=== PATIENT | female | born 1990 | race Caucasian/White ===

== ENCOUNTER 2023-10-18 21:45 | Emergency (ER) | payer MEDICAID, SELFPAY ==
[2023-10-18 21:47] VITALS: BP 122/70; PULSE 96; RESP 15; TEMP 36.4; O2SAT 100; BMI 35.9
--- NOTE | 2023-10-18 22:01 | US_ITS ---
EXAM: US , TRANSVAGINAL CLINICAL INDICATION: pelvic pain and 1st trimester TECHNIQUE: Real-time transvaginal obstetrical ultrasound of the maternal pelvis and a first trimester with image documentation. Transvaginal imaging was used for better evaluation of the fetus and adnexa. COMPARISON: No relevant prior studies available. FINDINGS: GESTATION: Single live intrauterine . heart rate: 168 bpm. Shelby-rump length: 4.28 cm. Gestational age by ultrasound: 10 weeks 5 days, LEELA 05/10/2024. PLACENTA/AMNIOTIC FLUID: Cannot be adequately evaluated due to the early gestational age. UTERUS/CERVIX: Unremarkable. No myometrial mass. OVARIES: Right ovary: 5.1 x 3.3 x 3.1 cm. Left ovary: 3.9 x 2.3 x 2.2 cm. No mass. FREE FLUID: No free fluid. US/Transvaginal w/Preg US IMPRESSION: Single live intrauterine measuring 10 weeks 5 days with no acute abnormality identified. Electronically Signed: Yovani Tellez MD at 23:22 EDT ,
[2023-10-18 23:07] LABS: hCG Titer Quant., Serum 30534 mIU/mL (1-3)
[2023-10-18 23:31] LABS: Mucous, Urine 0 SEEN /hpf (<or=2+); White Blood Cells 0 SEEN /hpf (0-5)
[2023-10-18 23:34] LABS: Color, Urine Yellow (Yellow); Glucose, Dipstick 1000 mg/dl (Normal); Ketone-Dipstick 5 mg/dl (Negative); Leukocyte Esterase-Dipstick Negative /ul (Negative); Nitrite-Dipstick Negative (Negative); Occult Blood-Urine 10 /ul (Negative); Protein-Dipstick Negative (Negative); Specific Gravity, Urine 1.025 (1.002-1.030); Urine Bilirubin Dipstick Negative (Negative); Urine Clarity Sl. Cloudy (Clear); Urine Urobilinogen 1 mg/dl (Normal)
--- NOTE | 2023-10-18 23:42 | EDS_ITS ---
HPI HPI - Female History of Present Illness Chief Complaint: Abd Pain Informant: patient Pain Pain: Positive for Pelvic Pain Onset: Today Timing: Intermittent Quality: Positive for Cramping Current Severity: Mild Maximum Severity: Mild Bleeding Issue: Negative for Vaginal bleeding or Passing clots Associated Symptoms Associated Symptoms: Negative for Dysuria, Frequency or Urgency P: 3 Ab: 1 (Stillbirth) Narrative Narrative: 33-year-old female G5, P3 Ab1 with a having a stillbirth. Currently is 10 weeks [address] [facility]. States that she is having cramping since about 6 PM tonight. Denies any vaginal bleeding nor clots nor discharge. No dysuria or fever. She does have a history of diabetes has had a prior cholecystectomy and prior D&Cs the last 25 March of last year. She denies any recent illness. Prior similar symptoms: No Recent Illness/Hospitalization: No PFSH PFSH Medical History Diabetes mellitus, type 2 Allergy/AdvReac Type Severity Reaction Status Date / Time codeine Allergy JITTERY Verified 10/18/23 21:52 acetaminophen (From Percocet) AdvReac Vomiting Verified 10/18/23 21:52 nalbuphine (From Nubain) AdvReac Vomiting Verified 10/18/23 21:52 oxycodone (From Percocet) AdvReac Vomiting Verified 10/18/23 21:52 Social History Smoking Status: Current every day smoker tobacco type: cigarettes ROS ROS ED ROS Narrative Left lateral pelvic pain. Review of Systems ROS Unobtainable: Denies due to encephalopathy Constitutional Constitutional ED: Denies chills or fever(s) Eyes Eyes: Denies blurry vision ENT ENT ED: Denies ear pain Cardiovascular Cardiovascular: Denies chest pain Respiratory/Chest Respiratory/Chest: Denies cough Gastrointestinal Gastrointestinal: Reports abdominal pain; Denies constipation, diarrhea, melena, nausea or vomiting Genitourinary Genitourinary ED: Denies dysuria or hematuria Musculoskeletal Musculoskeletal: Denies arthralgias or myalgias Integumentary Denies abscess or Abrasions Neurologic Neurologic: Denies headache(s) Psychiatric Psychiatric: Denies anxiety or depression Endocrine Endocrinology: Denies heat intolerance Hematologic/Lymphatic Hematologic/Lymphatic: Denies easy bleeding, easy bruising or lymphadenopathy Allergic/Immunologic Allergic/Immunologic ED: Denies mouth swelling, tongue swelling or urticaria EXAM Physical Exam Narrative Exam Narrative: Well-appearing 33-year-old female. Vital signs stable afebrile. HEENT exam unremarkable. Lungs clear. Heart regular rhythm no murmur. Abdomen soft, nontender, nondistended normal bowel sounds without peritoneal signs. Moving all 4 extremities. Calves are nontender without edema. Neurologically she is awake and alert no focal motor deficits. Const Vital Signs: 10/18/23 21:47 10/18/23 23:46 Temperature 97.6 F L 98.1 F Temperature Source Temporal Oral Pulse Rate 96 84 Respiratory Rate 15 15 Blood Pressure 122/70 H 121/67 H Blood Pressure Mean 87 85 Pulse Ox 100 97 Oxygen Delivery Method Room Air Room Air Positive well nourished and well developed; Negative for cachectic, contractures or unkempt General Appearance ED: well developed and NAD; Negative for unkempt, cachectic, contractures or pallor Nutritional Appearance: Negative for cachectic HEENT Reports moist mucous membranes Negative for trauma or tenderness Eyes PERRL and EOMs intact bilaterally General Eye ED: Negative for pale conjunctiva or scleral icterus Neck no lymphadenopathy, supple and no JVD General: Negative for other Thyroid: Negative for tender Lymph Lymphatic: Negative for other Chest Wall inspection of chest normal and palpation of chest normal Chest: Negative for other Resp normal respiratory effort and clear to auscultation bilaterally Effort and Inspection: Negative for pain with movement Auscultation: Negative for rales, rhonchi, wheezes or diminished lung sounds Cardio regular rate, regular rhythm, S1 normal heart sound, no murmurs and no JVD Rate: Negative for bradycardia or tachycardic Rhythm: Negative for abnormal rhythm GI normal to inspection, nondistended, normoactive bowel sounds, soft to palpation, non-tender, non-distended and no masses Auscultation: normoactive bowel sounds Palpation: Negative for tender, guarding, rigid or mass Back/Spine no CVA tenderness General Back: Negative for CVA tenderness Cervical Spine: Negative for cervical spine tenderness Thoracic Spine / Upper Back: Negative for thoracic spinal tenderness Lumbar Spine / Lower Back: Negative for lumbar spinal tenderness Extremity normal to inspection and full ROM General Extremety ED: Negative for edema or tenderness General Extremity: Negative for edema Neuro oriented x3 and CN's II-XII intact bilaterally Sensorium / Orientation: alert, oriented to person, oriented to place and oriented to time; Negative for confused, lethargic or stuporous Motor Exam: strength 5/5 throughout Psych mental status grossly normal Appearance: Negative for unkempt Attitude: No agitated Speech: No other Mood & Affect: Negative for depressed, anxious or tearful Skin no rashes or lesions noted and no wounds General Skin Exam: Negative for jaundice or pallor Rashes: No rashes noted Trauma: Negative for other MDM MDM MDM Narrative Medical decision making narrative: Well-appearing 33-year-old female who has left lower lateral pelvic pain. She is reportedly about 10+ weeks . Ultrasound labs are being obtained. She is having no bleeding or dysuria. Currently she does not need any for pain. Repeat exam patient doing well at 12:13 AM. She was given Tylenol for pain. She be discharged home outpatient follow-up. There is no signs of ectopic. She is having no bleeding. There is no signs of infection. I did repeat exam on her left lower quadrant I do not see any hernia or mass or any acute abnormality. Outpatient follow-up with her [facility]. Tylenol for pain. History & Record Review Discussion w/independent historian: Patient and Family Lab Data Attestation: I reviewed the patient's lab results. Lab results narrative: Quantitative hCG is 30,534 Blood type is O+. UA shows no signs of infection. No nitrites. No white or red cells. Only rare bacteria. Ultrasound shows a single live IUP at 10 weeks and 5 days as read by the rad iologist. No abnormality seen. Labs: Laboratory Results - last 24 hr 10/18/23 10/18/23 22:20 23:27 HCG, Quant [id number] H Urine Color Yellow Urine Clarity Sl. Cloudy Urine pH 6.0 Ur Specific [place] 1.025 Urine Protein Negative Urine Glucose (UA) 1000 H Urine Ketones 5 H Urine Occult Blood 10 H Urine Nitrite Negative Urine Bilirubin Negative Urine Urobilinogen 1 H Ur Leukocyte Esterase Negative Urine RBC 0-5 SEEN Urine WBC 0 SEEN Ur Squamous Epith Cells 0-5 SEEN Urine Bacteria RARE Urine Mucus 0 SEEN Blood Type O POSITIVE Radiography Diagnostic Testing: Clinical Impression(s) from Imaging Studies Obstetrics Ultrasound 10/18/23 22:01 IMPRESSION: Single live intrauterine measuring 10 weeks 5 days with no acute abnormality identified. Electronically Signed: Yovani Tellez MD at 23:22 EDT , Discharge Plan Triage Chief Complaint: Abd Pain ED Provider: Noah Rene Dx/Rx/DC Orders Clinical Impression: Pelvic pain, First trimester , History of diabetes mellitus Instructions: First Trimester, ED Pelvic Pain, Unknown Cause Primary Care Provider: Mera Aranda Referrals: Mera Aranda MD [Primary Care Provider] - Mimi Harden MD [Med Staff - Active Staff] - As Needed Activity Restrictions/Additional Instructions: Your labs look good. Your blood type so positive. Your urine is not infected. The ultrasound showed a intrauterine normal-appearing without abnormalities. I do not have a specific cause for your pain. It may be from the uterus expanding with the . There is no signs of a hernia right now. No signs of infection. No signs of a miscarriage. Tylenol for pain. Follow-up with your [facility]. Return if feeling a lot worse or develop a fever or having worsening pain. Print Language: Yi Disposition Disposition: Home, Self Care
[2023-10-18 23:46] VITALS: BP 121/67; PULSE 84; RESP 15; TEMP 36.7; O2SAT 97
[2023-10-18 23:48] LABS: Bacteria RARE /hpf (None Seen); Red Blood Cells-Urine 0-5 SEEN /hpf (0-5); Squamous Epithelial Cells - UA 0-5 SEEN /hpf (5-10)
[2023-10-19] MEDS: Acetaminophen 500 MG Tablet 1000 MG PO
[2023-10-19 00:27] VITALS: BP 120/62; PULSE 78; RESP 16; TEMP 36.6; O2SAT 98
== END 2023-10-19 00:29 | disposition home or self-care (01) ==
PROVIDERS: Emergency Provider Emergency Medicine; PCP Internal Medicine; Visit Provider Emergency Medicine
DX: O26.891 Other specified pregnancy related conditions, first trimester (principal); R10.2 Pelvic and perineal pain; O09.521 Supervision of elderly multigravida, first trimester; O99.331 Smoking (tobacco) complicating pregnancy, first trimester; F17.210 Nicotine dependence, cigarettes, uncomplicated; Z3A.10 10 weeks gestation of pregnancy
CPT/HCPCS: 76817; 81001; 84702; 86900; 86901; 99283; A4216

== ENCOUNTER 2023-12-09 20:38 | Emergency (ER) | payer MEDICAID, SELFPAY ==
[2023-12-09 20:39] VITALS: BP 134/77; PULSE 116; RESP 18; TEMP 36.6; O2SAT 97; BMI 35.9
--- NOTE | 2023-12-09 21:18 | US_ITS ---
EXAM: US , LIMITED CLINICAL INDICATION: vaginal bleeding TECHNIQUE: Real-time limited ultrasound of the maternal uterus with image documentation. COMPARISON: No relevant prior studies available. FINDINGS: FETUS: There is an intrauterine gestation. GESTATIONAL AGE: Gestational age 18 weeks 1 day. LEELA: LEELA 05/10/2024. EFW: Estimated weight 259 g. BPD: Biparietal diameter 4.3 cm age 18 weeks 6 days, 82nd percentile. HC: Head circumference 16.4 cm age 19 weeks 1 day, 85th percentile. AC: Abdominal circumference 14 cm age 19 weeks 3 days, 84th percentile. Femur length 2.7 cm age 18 weeks 0 days, 41st percentile. POSITION: The fetus is in breech position. HEART RATE: heart rate is 150 bpm. CERVIX: The cervix measures 3.7 cm. FREE FLUID: Largest fluid pocket measures 3.8 x 5.7 cm. US/OB Limited With Biometrics IMPRESSION: Intrauterine gestation with an average ultrasound age of 19 weeks 0 days and percent estimated due date of 05/04/2024 or. heart rate is 150 bpm. Electronically Signed: Grant Colunga MD at 22:37 EDT ,
--- NOTE | 2023-12-09 21:56 | EDS_ITS ---
HPI HPI - Female History of Present Illness Chief Complaint: Vag Bld, Preg Narrative Narrative: 33-year-old female G5, currently 18 weeks gestation presenting with abdominal cramping. She states that today when she would not to the restroom she wiped and saw pinkish blood. She is concerned because she had a miscarriage at 16 weeks during her last she states that her pain feels like menstrual cramps. No nausea or vomiting. No fevers or chills. PFSH PFSH Medical History Diabetes mellitus, type 2 Home Medications ?Medication ?Instructions ?Recorded ?Last Taken ?Type cephalexin 500 mg capsule 500 mg PO Q12 #10 CAPSULES 12/09/23 Unknown Rx Allergy/AdvReac Type Severity Reaction Status Date / Time codeine Allergy JITTERY Verified 10/18/23 21:52 acetaminophen (From Percocet) AdvReac Vomiting Verified 10/18/23 21:52 nalbuphine (From Nubain) AdvReac Vomiting Verified 10/18/23 21:52 oxycodone (From Percocet) AdvReac Vomiting Verified 10/18/23 21:52 Family History no significant family his Social History Smoking Status: Current every day smoker tobacco type: cigarettes ROS ROS ED Constitutional Constitutional ED: Denies chills, fever(s) or sweats Eyes Eyes: Denies blurry vision or change in vision ENT ENT ED: Denies ear pain or sore throat Cardiovascular Cardiovascular: Denies chest pain, palpitations or racing heartbeat Respiratory/Chest Respiratory/Chest: Denies cough, dyspnea or sputum Gastrointestinal Gastrointestinal: Reports abdominal pain; Denies constipation, diarrhea, nausea or vomiting Genitourinary Genitourinary ED: Denies dysuria, hematuria or urinary frequency Musculoskeletal Musculoskeletal: Denies arthralgias, myalgias or neck pain Integumentary Denies abscess, Abrasions or rash Neurologic Neurologic: Denies headache(s), paresthesias or weakness Psychiatric Psychiatric: Denies anxiety, depression, suicidal ideation or suicidal thoughts Endocrine Endocrinology: Denies polydipsia or polyuria EXAM Physical Exam Const Vital Signs: 12/09/23 20:39 Temperature 98 F Temperature Source Temporal Pulse Rate 116 H Respiratory Rate 18 Blood Pressure 134/77 H Blood Pressure Mean 96 Pulse Ox 97 Oxygen Delivery Method Room Air Positive well nourished General Appearance ED: NAD HEENT Reports TM's clear Tympanic Membrane ED: Yes TM's clear Eyes PERRL and EOMs intact bilaterally Resp normal respiratory effort Cardio regular rate and regular rhythm GI soft to palpation Palpation: Negative for guarding or rigid Back/Spine no CVA tenderness Neuro oriented x3 and CN's II-XII intact bilaterally Sensorium / Orientation: alert Motor Exam: strength 5/5 throughout Psych mental status grossly normal MDM MDM MDM Narrative Medical decision making narrative: Patient presenting at 18 weeks gestation of concern that she had bloody discharge. Her blood type is O+. Urinalysis will be obtained. Sensitive ultrasound obtained shows good heart tones of 150 and estimated size of 19 weeks. Patient's urinalysis does have some bacteria so I will treat it with Keflex. Sent for culture. Impression: 1. UTI 2. Threatened miscarriage Lab Data Attestation: I reviewed the patient's lab results. Labs: Laboratory Results - last 24 hr 12/09/23 21:30 Urine Color Yellow Urine Clarity Sl. Cloudy Urine pH 5.0 Ur Specific [place] 1.030 Urine Protein 30 H Urine Glucose (UA) 100 H Urine Ketones 50 H Urine Occult Blood 50 H Urine Nitrite Negative Urine Bilirubin Negative Urine Urobilinogen Normal Ur Leukocyte Esterase 500 H Urine RBC 0-5 SEEN Urine WBC 25-50 SEEN Ur Squamous Epith Cells 0-5 SEEN Calcium Oxalate Crystal RARE Urine Bacteria 1+ Urine Mucus RARE Radiography Diagnostic Testing: Clinical Impression(s) from Imaging Studies Obstetrics Ultrasound 12/09/23 21:18 IMPRESSION: Intrauterine gestation with an average ultrasound age of 19 weeks 0 days and percent estimated due date of 05/04/2024 or. heart rate is 150 bpm. Electronically Signed: Grant Colunga MD at 22:37 EDT , Discharge Plan Triage Chief Complaint: Vag Bld, Preg ED Provider: Domenico Rush Dx/Rx/DC Orders Instructions: Miscarriage Threatened , ED Cystitis Female Adult Prescriptions: New cephalexin 500 mg capsule 500 mg PO Q12 Qty: 10 0RF Primary Care Provider: Mera Aranda Referrals: Mera Aranda MD [Primary Care Provider] - Print Language: Yakut Disposition Disposition: Home, Self Care
[2023-12-09 21:57] LABS: Color, Urine Yellow (Yellow); Glucose, Dipstick 100 mg/dl (Normal); Ketone-Dipstick 50 mg/dl (Negative); Leukocyte Esterase-Dipstick 500 /ul (Negative); Nitrite-Dipstick Negative (Negative); Occult Blood-Urine 50 /ul (Negative); Protein-Dipstick 30 mg/dl (Negative); Urine Bilirubin Dipstick Negative (Negative); Urine Clarity Sl. Cloudy (Clear); Urine Urobilinogen Normal (Normal)
[2023-12-09 22:03] LABS: Calcium Oxalate Crystals Ur RARE /hpf (<or=2+); Red Blood Cells-Urine 0-5 SEEN /hpf (0-5); Squamous Epithelial Cells - UA 0-5 SEEN /hpf (5-10); White Blood Cells 25-50 SEEN /hpf (0-5)
[2023-12-09 22:04] LABS: Bacteria 1+ /hpf (None Seen); Mucous, Urine RARE /hpf (<or=2+)
[2023-12-09] MEDS: Cephalexin 250 MG Capsule 500 MG PO (22:55)
== END 2023-12-09 22:59 | disposition home or self-care (01) ==
PROVIDERS: Emergency Provider Student in an Organized Health Care Education/Training Program; PCP Internal Medicine; Visit Provider Student in an Organized Health Care Education/Training Program
DX: O20.0 Threatened abortion (principal); O23.42 Unspecified infection of urinary tract in pregnancy, second trimester; O99.332 Smoking (tobacco) complicating pregnancy, second trimester; F17.210 Nicotine dependence, cigarettes, uncomplicated; O09.522 Supervision of elderly multigravida, second trimester; Z3A.18 18 weeks gestation of pregnancy
CPT/HCPCS: 76816; 81001; 87086; 87088; 99282

== ENCOUNTER 2025-03-27 09:11 | Emergency (ER) | payer MEDICAID, SELFPAY ==
[2025-03-27 09:12] VITALS: BP 116/77; PULSE 105; RESP 16; TEMP 36.8; O2SAT 98; BMI 33.1
--- NOTE | 2025-03-27 09:27 | EX.ED.VIS.EY ---
HPI History of Present Illness Chief Complaint: Eye Problem Narrative Narrative: Patient is a 35-year-old female presenting to the emergency department for swelling underneath her right eye. Patient states it has been like this since Thursday. She denies any purulent or watery drainage from the eye. Denies any redness surrounding the eye or of the eye itself. Denies any visual changes including double vision or blurry vision. She denies any pain in her eye. Denies headache. Denies any viral-like symptoms. Denies any fever or chills. Feels well otherwise. She does not wear contacts. [facility] Medical History Diabetes mellitus, type 2 Home Medications ?Medication ?Instructions ?Recorded ?Last Taken ?Type cephalexin 500 mg capsule 500 mg PO Q12 #10 CAPSULES 12/09/23 Unknown Rx Allergy/AdvReac Type Severity Reaction Status Date / Time codeine Allergy JITTERY Verified 03/27/25 09:12 acetaminophen (From Percocet) AdvReac Vomiting Verified 03/27/25 09:12 nalbuphine (From Nubain) AdvReac Vomiting Verified 03/27/25 09:12 oxycodone (From Percocet) AdvReac Vomiting Verified 03/27/25 09:12 Social History Smoking Status: Current every day smoker tobacco type: cigarettes ROS ROS ED ROS Narrative See HPI EXAM Physical Exam Narrative Exam Narrative: Vital signs: Reviewed General: Alert and oriented x 3. No acute distress HEENT: Head is normocephalic and atraumatic. Midface is nontender. Pupils equal round and reactive. There is no conjunctival injection. No pain with extraocular movements. No drainage noted from the eye. No crusting noted around the eyelid. There is very mild swelling only to the right lower eyelid. There is no erythema, warmth, fluctuance periorbitally. no drainage expressed on palpation of the nasolacrimal duct. No stye or chalazion seen along the lid margin. No proptosis. The nares are patent. Oropharynx and throat exams normal. Neck: Supple without lymphadenopathy nontender Cardiovascular: Regular rate and rhythm, no murmurs. No rubs or gallops. Normal S1 and S2 Respiratory: Clear to auscultation bilaterally. No wheezes, rales, rhonchi Abdominal: Soft and nontender. Normal bowel sounds. No guarding or rebound. Nonsurgical abdomen Extremities: No tenderness. No bruising. Normal range of motion. Normal sensation. Skin: No rash or redness. Neurological: Cranial nerves II through XII are grossly intact. Normal strength and sensation. Normal cerebellar function The rest of the physical exam is unremarkable Const Vital Signs: 03/27/25 09:12 Temperature 98.2 F Temperature Source Oral Pulse Rate 105 H Respiratory Rate 16 Blood Pressure 116/77 Blood Pressure Mean 90 Pulse Ox 98 Oxygen Delivery Method Room Air MDM MDM MDM Narrative Medical decision making narrative: Patient is a 35-year-old female presenting to the emergency department for mild swelling under her right eye. Patient was seen and examined. Vitals are stable. Patient resting in bed comfortably no acute distress. There is no stye or chalazion seen on exam. There is no discharge seen to be concerned about a bacterial conjunctivitis. There is no conjunctival injection of the eye. She has no visual changes or eye pain to be concerned about a acute closure angle glaucoma, iritis, keratitis or foreign body. Please see nursing note for visual acuity. Patient has no pain with extraocular movements and has no surrounding periorbital erythema to be concerned about a periorbital cellulitis or postseptal cellulitis. With a very mild swelling located only under the right eye with no surrounding skin changes I recommended antihistamines to the patient. Patient was given a dose of Claritin here. I recommended that she watch for any redness, worsening swelling, visual changes or drainage from the eye that would warrant return to the emergency department and possible antibiotics. Patient is agreeable with the plan. Patient discharged from the Emergency Department. I do not feel that the patient's evaluation reveals any acute reason for admission at this time. I instructed them to either follow-up with their primary care physician or promptly return to the Emergency Department for reevaluation should symptoms worsen or new symptoms develop. I explained what symptoms would indicate the need to return to the emergency department. Shared decision making was used. The patient voiced understanding of the treatment plan and is agreeable with it. Clinical impression Swelling of right lower eyelid History & Record Review Discussion w/independent historian: Patient Discharge Plan Triage Chief Complaint: Eye Problem ED Provider: Ida Baltazar Dx/Rx/DC Orders Clinical Impression: Swelling of right lower eyelid Prescriptions: No Action cephalexin 500 mg capsule 500 mg PO Q12 Qty: 10 0RF Primary Care Provider: Mera Aranda Referrals: Mera Aranda MD [Primary Care Provider, Internal Medicine] - As soon as possible Activity Restrictions/Additional Instructions: You can take Claritin during the day or Benadryl at night over the next few days to help with the swelling. You need to return if you have any redness of the eye, drainage from the eye, worsening swelling or any redness associated with the swelling around your eye. Your evaluation in the Emergency Department did not reveal any acute reason for admission. However, I want to emphasize that you may be early in the course of a disease process or illness even if it is not present. For this reason you should follow-up within 24 hours for reevaluation with either your primary care physician or if necessary back here in the Emergency Department. You should return to the Emergency Department immediately if your symptoms worsen or new symptoms develop. Print Language: Georgian Disposition Disposition: Home, Self Care
[2025-03-27 10:16] VITALS: BP 134/67; PULSE 78; RESP 17; TEMP 36.7; O2SAT 100
== END 2025-03-27 10:17 | disposition home or self-care (01) ==
PROVIDERS: Emergency Provider Student in an Organized Health Care Education/Training Program; PCP Internal Medicine; Visit Provider Student in an Organized Health Care Education/Training Program
DX: H02.89 Other specified disorders of eyelid (principal); E11.9 Type 2 diabetes mellitus without complications; F17.210 Nicotine dependence, cigarettes, uncomplicated
CPT/HCPCS: 99282

== ENCOUNTER 2025-04-10 19:28 | Emergency (ER) | payer MEDICAID, SELFPAY ==
[2025-04-10 19:30] VITALS: BP 145/91; PULSE 91; RESP 18; TEMP 36.4; O2SAT 98; BMI 35.6
--- OUTSIDE RECORDS SUMMARY | 2025-04-10 20:03 | XMS RPT_ITS | CCD ---
Author Organization [facility] Care Team Providers Care 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 Name Role Phone [facility], Keti Unavailable [facility], Vasu Unavailable Junior Jeong MD Primary Care Provider [facility], Vasu Unavailable Junior Jeong MD Primary Care Provider Junior Jeong MD Primary Care Provider [facility], Vasu Unavailable DAYAN JENKINS Attending Unavailable Junior Jeong MD Primary Care Provider MAGED BATISTA Attending Unavailable MAGED BATISTA Admitting Unavailable JUNIOR JEONG Primary Care Unavailable JUNIOR JEONG Primary Care Unavailable CYNTHIA MANRIQUEZ Referring Unavailable CONI CORONADO Admitting Unavailable DAPHNEY DESOUZA Attending Unavailable JUNIOR JEONG Primary Care Unavailable SUNDEEP NEAL DO Attending Unavailable SUNDEEP NEAL DO Primary Care Unavailable SUNDEEP NEAL DO Admitting Unavailable Unavailable Primary Care Provider UnavailRAJIV Oscar Attending Unavailable CHACHA MIRANDA Admitting Unavailable GALLO JONES Consulting Unavailable EMANI ENCINAS Attending Unavailable LEONOR ROYAL Consulting Unavailable CARO ARZOLA Consulting Unavailable JYOTI WISEMAN Consulting Unavailable Perez 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, Fercho Unavailable Maira MOVIE PROJECTIONIST.TIE UP WORKER, Leah Unavailable Amira MOVIE PROJECTIONIST.TIE UP WORKER, Leah Unavailable Maira MOVIE PROJECTIONIST.TIE UP WORKER, Leah Unavailable Perez 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, Fercho Unavailable Perez 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, Fercho Unavailable SHONNA COVARRUBIAS Primary Care Unavailable JUNIOR HORTON Attending Unavailable JUNIOR HORTON Attending Unavailable TALAMPAS, JUNIOR D Primary Care Unavailable OMLEY, MIN DO Attending Unavailable OMLEY, MIN DO Primary Care Unavailable MIN FARAH DO Admitting Unavailable JUNIOR JEONG MD Referring Unavailable TALAMPJUNIOR BROWN MD Consulting Unavailable PROVIDER, UNKNOWN Consulting Unavailable OMLEY, MIN DO Primary Care Unavailable OMLEY, MIN DO Admitting Unavailable TALAMPJUNIOR BROWN MD Referring Unavailable TALAMPASJUNIOR MD Consulting Unavailable OMLEY, MIN DO Attending Unavailable PROVIDER, UNKNOWN Consulting Unavailable Talampas, Junior D Primary Care Unavailable Ida Baltazar Attending Unavailable PEREZ, FERCHO Attending Unavailable TALAMPAS, JUNIOR Primary Care Unavailable TALAMPAS, JUNIOR Primary Care Unavailable PEREZ, FERCHO Referring Unavailable TALAMPAS, JUNIOR Primary Care Unavailable ADEEL RAMIREZ Referring Unavailable PEREZ, FERCHO Referring Unavailable TALAMPAS, JUNIOR Primary Care Unavailable TALAMPAS, JUNIOR Attending Unavailable TALAMPAS, JUNIOR Primary Care Unavailable ADEEL RAMIREZ Attending Unavailable TALAMPAS, JUNIOR Primary Care Unavailable ADEEL RAMIREZ Attending Unavailable PEREZ, FERCHO Attending Unavailable TALAMPAS, JUNIOR Primary Care Unavailable LIZETTE PIERCE Attending Unavailable TALAMPAS, JUNIOR Primary Care Unavailable ADEEL RAMIREZ Referring Unavailable Allergies Allergy Classification Reported Allergen(s) Allergy Type Date of Onset Reaction(s) Facility Acetaminophen / oxyCODONE (3 sources) Acetaminophen / oxyCODONE; Translations: [OXYCODONE-ACETAM INOPHEN] Drug Allergy 1 Vomiting [facility] Repository empagliflozin (3 sources) empagliflozin; Translations: [EMPAGLIFLOZIN] Drug Allergy 2 Intolerance [facility] Repository metFORMIN (3 sources) metFORMIN; Translations: [METFORMIN] Drug Allergy 3 Diarrhea, GI Upset [facility] Repository Nalbuphine (3 sources) Nalbuphine; Translations: [NALBUPHINE] Drug Allergy 1 Vomiting [facility] Repository Opioid Agonists (6 sources) Codeine; Translations: [CODEINE] Drug Allergy 9 Other: See Comments, Vomiting [facility] Repository (20 sources) Acetaminophen / oxyCODONE; Translations: [OXYCODONE-ACETAM INOPHEN] Drug Allergy 6 Vomiting, Nausea Only [facility] Work Phone: (20 sources) Codeine; Translations: [CODEINE] Drug Allergy 6 Other: See Comments [facility] Work Phone: (20 sources) Nalbuphine; Translations: [NALBUPHINE] Drug Allergy 6 Vomiting, Nausea Only [facility] Work Phone: (20 sources) empagliflozin; Translations: [EMPAGLIFLOZIN] Drug Allergy 2 Intolerance [facility] Work Phone: (20 sources) metFORMIN; Translations: [METFORMIN] Drug Allergy 3 Diarrhea, GI Upset [facility] Work Phone: (20 sources) oxyCODONE; Translations: [OXYCODONE] Drug Allergy 9 Vomiting [facility] Work Phone: (2 sources) Acetaminophen / oxyCODONE Drug Allergy [facility] Repository (2 sources) Codeine Drug Allergy [facility] Repository (2 sources) Nalbuphine Drug Allergy [facility] Repository (1 source) Acetaminophen Drug Allergy 5 [facility] Repository (1 source) Codeine Drug Allergy 5 [facility] Repository (1 source) Nalbuphine Drug Allergy 5 [facility] Repository (1 source) oxyCODONE Drug Allergy 5 [facility] Repository Medications Current Medications Medication Drug Class(es) Dates Sig (Normalized) Sig (Original) acetaminophen 325 mg oral tablet (12 sources) Start: 02-22-2024 End: 03-03-2024 take 2 tablets by mouth every six hours as needed for pain acetaminophen (Tylenol) 325 MG tablet Take 2 tablets (650 mg) by mouth every 6 hours as needed for mild pain (1-3) for up to 10 days. 30 tablet 02/22/2024 03/03/2024 Active Start: 02-20-2024 End: 02-22-2024 take 1 tablet by mouth every six hours as needed 650 mg, Oral, Every 6 hours PRN, other, Pain (1-10), Starting on 02/20/24 at 0504, , Give in addition to any other pain medication ordered at same time for any pain indication. Maximum dose of acetaminophen is 4000mg from all sources in 24 hours. Alternate ibuprofen and acetaminophen every 3 hours. Start: 02-18-2024 End: 02-18-2024 1,000 mg, Oral, Once, On Angela 02/18/24 at 1915, For 1 dose, Maximum dose of acetaminophen is 4000 mg from all sources in 24 hours. Start: 02-18-2024 End: 02-18-2024 1,000 mg, Oral, Once, On Angela 02/18/24 at 1915, For 1 dose, Maximum dose of acetaminophen is 4000 mg from all sources in 24 hours. Start: 02-17-2024 End: 02-17-2024 1,000 mg, Oral, Once, On 02/17/24 at 0000, For 1 dose, Maximum dose of acetaminophen is 4000 mg from all sources in 24 hours. Start: 02-15-2024 End: 02-15-2024 1,000 mg, Oral, Once, On 02/15/24 at 2245, For 1 dose, Maximum dose of acetaminophen is 4000 mg from all sources in 24 hours. [id number] 200 actuat albuterol 0.09 mg/actuat metered dose inhaler (20 sources) beta2-Adrenergic Agonist Start: 04-27-2023 End: 08-05-2024 take 2 puff(s) by inhalation every four hours as needed for wheezing albuterol HFA (PROVENTIL HFA, VENTOLIN HFA) 90 mcg/actuation inhaler Inhale 2 Puffs as instructed every 4 hours as needed for wheezing/shortness of breath. 1 Each 2 08/05/2024 Active albuterol HFA (P ROVENTIL HFA, VENTOLIN HFA) 90 mcg/actuation inhaler Inhale 2 Puffs as instructed. 0 Active Comment on above: Inhale 2 Puffs as in structed. Inhale 2 Puffs as in structed every 4 hours as needed for wheezing/shortness of breath. amoxicillin 875 mg oral tablet (1 source) Penicillin-class Antibacterial Start: End: 3 take 1 tablet by mouth twice daily amoxicillin (AMOXIL) 875 mg tablet Take 1 tablet by mouth twice daily for 5 days. 10 tablet 0 11/21/2022 11/26/2022 Active Comment on above: Take 1 tablet by isabella twice daily for 5 days. Blood-Glucose Meter (BLOOD GLUCOSE MONITORING) monitoring kit (20 sources) Start: Blood-Glucose Meter (BLOOD GLUCOSE MONITORING) monitoring kit One touch. Use as instructed. Please use voucher Bin [id number]; [facility]N [facility]; Group [id number]; ID NOCHARGEMETR 1 Kit 04/06/2023 Active Start: 04-06-2023 Blood-Glucose Meter (BLOOD GLUCOSE MONITORING) monitoring kit One touch. Use as instructed. Please use voucher Bin [id number]; [facility]; Group [id number]; ID NOCHARGEMETR 1 Kit 0 04/06/2023 Active Comment on above: One touch. Use as in structed. Please use voucher Bin [id number]; [facility]; Group [id number]; ID NOCHARGEMETR Blood-Glucose Meter,Continuous (DEXCOM G7 HOME THEATRE TECHNICIAN) misc (20 sources) Start: 08-05-2022 Blood-Glucose Meter,Continuous (DEXCOM G7 HOME THEATRE TECHNICIAN) misc Use to test blood sugar as directed. 1 Each 08/05/2022 Active Start: 08-05-2022 Blood-Glucose Meter,Continuous (DEXCOM G7 HOME THEATRE TECHNICIAN) misc Use to test blood sugar as directed. 1 Each 0 08/05/2022 Active Comment on above: Use to test blood russell gar as directed. Blood-Glucose Sensor (DEXCOM G7 SENSOR) stephanie (20 sources) Start: 03-08-2024 Blood-Glucose Sensor (DEXCOM G7 SENSOR) stephanie Insert 1 sensor on the back of arm. Replace every 10 days as directed. 3 Each 03/08/2024 Active Start: 03-11-2023 End: 10-22-2023 Blood-Glucose Sensor (DEXCOM G7 SENSOR) stephanie Insert 1 sensor on the back of arm. Replace every 10 days as directed. 3 Each 5 03/11/2023 10/22/2023 Discontinued Start: 03-11-2023 Blood-Glucose Sensor (DEXCOM G7 SENSOR) stephnaie Insert 1 sensor on the back of arm. Replace every 10 days as directed. 3 Each 5 03/11/2023 Active Start: 02-19-2023 End: 03-11-2023 Blood-Glucose Sensor (DEXCOM G7 SENSOR) stephanie Insert 1 sensor on the back of arm. Replace every 10 days as directed. 3 Each 5 02/19/2023 03/11/2023 Discontinued Start: 02-19-2023 Blood-Glucose Sensor (DEXCOM G7 SENSOR) stephanie Insert 1 sensor on the back of arm. Replace every 10 days as directed. 3 Each 5 02/19/2023 Active Start: 08-05-2022 End: 02-19-2023 Blood-Glucose Sensor (DEXCOM G7 SENSOR) stephanie Insert 1 sensor on the back of arm. Replace every 10 days as directed. 3 Each 5 08/05/2022 02/19/2023 Discontinued Start: 08-05-2022 Blood-Glucose Sensor (DEXCOM G7 SENSOR) stephanie Insert 1 sensor on the back of arm. Replace every 10 days as directed. 3 Each 5 08/05/2022 Active End: 03-11-2023 Blood-Glucose Sensor (DEXCOM G7 SENSOR) stephanie Comment on above: Insert 1 sensor on t he back of arm. Replace every 10 days as directed. docusate sodium 100 mg oral capsule (6 sources) Start: 02-20-20 End: 03-03-20 24 take 1 capsule by mouth twice daily docusate sodium (Colace) 100 MG capsule Take 1 capsule (100 mg) by mouth 2 times daily for 10 days. 20 capsule 02/22/2024 03/03/2024 Active fluticasone propionate 0.05 mg/actuat metered dose nasal spray (20 sources) Corticosteroid take 1 spray(s) nasal route once daily as needed fluticasone (FLONASE) 50 mcg/actuation nasal spray Use 1 [place] in each nostril once daily. As needed Active Comment on above: Use 1 [place] in each nostril once daily. As needed ibuprofen 600 mg oral tablet (20 sources) Nonsteroidal Anti-inflammatory Drug Start: 02-20-20 End: 03-03-20 take 1 tablet by mouth every six hours ibuprofen 600 MG tablet Take 1 tablet (600 mg) by mouth in the morning and 1 tablet (600 mg) at noon and 1 tablet (600 mg) in the evening and 1 tablet (600 mg) before bedtime. Do all this for 10 days. 40 tablet 02/22/2024 03/03/2024 Active End: 12-30-2021 take 1 tablet by mouth every six hours as needed ibuprofen (MOTRIN) 800 mg tablet Take 800 mg by mouth every 6 hours as needed (headache). 0 12/30/2021 Discontinued Comment on above: Take 800 mg by mouth every 6 hours as needed (headache). insulin glargine 100 unt/ml injectable solution (4 sources) Insulin Analog inject 25 [IU] by subcutaneous injection once daily insulin glargine (Lantus) 100 UNIT/ML injection Indications: Type 2 Diabetes Mellitus Inject 25 Units under the skin Nightly. Active 3 ml insulin isophane, human 100 unt/ml pen injector (20 sources) Start: End: insulin NPH, Isophane, (HumuLIN N,NovoLIN N) 100 UNIT/ML injection Inject 6 Units under the skin every morning AND 10 Units every evening. Do not start before February 23, 2024. 15 mL 12 02/23/2024 02/22/2025 Active Start: 02-20-2024 End: 02-22-2024 inject 10 [IU] by subcutaneous injection once daily insulin NPH, Isophane, (HumuLIN N,NovoLIN N) 100 UNIT/ML injection Inject 10 Units under the skin Nightly. 10 mL 12 02/22/2024 02/22/2024 Discontinued (Duplicate order) Start: 02-20-2024 End: 02-22-2024 inject 6 [IU] by subcutaneous injection once daily in the morning 6 Units, SubCUTAneous, Every morning, First dose on Thu02/20/24 at 0900 Start: 02-19-2024 End: 02-20-2024 inject 16 [IU] by subcutaneous injection once daily before breakfast 16 Units, SubCUTAneous, Daily before breakfast, First dose (after last modification) on Thu02/19/24 at 0600 Start: 02-18-2024 End: 02-20-2024 inject 32 [IU] by subcutaneous injection once daily 32 Units, SubCUTAneous, Nightly, First dose (after last modification) on Thu02/18/24 at 2100 Start: 02-17-2024 End: 02-18-2024 inject 50 [IU] by subcutaneous injection once daily in the evening 50 Units, SubCUTAneous, Every evening, First dose (after last modification) on Thu02/17/24 at 1800 Start: 02-17-2024 inject 20 [IU] by russell bcutaneous injection once 20 Units, SubCUTAneous, Once, On Thu02/17/24 at 1200, For 1 dose Start: 02-17-2024 End: 02-18-2024 inject 20 [IU] by subcutaneous injection once daily before breakfast 20 Units, SubCUTAneous, Daily before breakfast, First dose on Thu02/17/24 at 0600 Start: 02-16-2024 End: 02-17-2024 inject 40 [IU] by subcutaneous injection once daily in the evening 40 Units, SubCUTAneous, Every evening, First dose (after last modification) on Thu02/16/24 at 1800 Start: 12-07-2023 End: 03-31-2024 insulin NPH (HUMULIN N NPH INSULIN KWIKPEN) 100 unit/mL (3 mL) injection pen 25 units at bedtime 5 Each 12/07/2023 03/31/2024 Discontinued Start: 11-29-2023 End: 12-07-2023 insulin NPH (HUMULIN N NPH INSULIN KWIKPEN) 100 unit/mL (3 mL) injection pen 28 units at bedtime 5 Each 11/29/2023 12/07/2023 Discontinued Start: 11-22-2023 End: 11-29-2023 insulin NPH (HUMULIN N NPH INSULIN KWIKPEN) 100 unit/mL (3 mL) injection pen 24 units at bedtime 5 Each 11/22/2023 11/29/2023 Discontinued Start: 10-25-2023 End: 11-22-2023 insulin NPH (HUMULIN N NPH INSULIN KWIKPEN) 100 unit/mL (3 mL) injection pen 20 units at bedtime 5 Each 10/25/2023 11/22/2023 Discontinued Start: 10-02-2023 End: 10-25-2023 insulin NPH (HUMULIN N NPH INSULIN KWIKPEN) 100 unit/mL (3 mL) injection pen 16 units at bedtime 5 Each 11 10/02/2023 10/25/2023 Discontinued Start: 09-26-2023 End: 10-02-2023 insulin NPH (HUMULIN N NPH INSULIN KWIKPEN) 100 unit/mL (3 mL) injection pen 10 units at bedtime 5 Each 11 09/26/2023 10/02/2023 Discontinued Start: 04-10-2023 End: 09-16-2023 insulin NPH (HUMULIN N NPH INSULIN KWIKPEN) 100 unit/mL (3 mL) injection pen 22 units at bedtime 5 Each 11 04/10/2023 09/16/2023 Discontinued Start: 04-06-2023 End: 04-10-2023 insulin NPH (HUMULIN N NPH INSULIN KWIKPEN) 100 unit/mL (3 mL) injection pen 15 units at bedtime 5 Each 11 04/06/2023 04/10/2023 Discontinued Start: 03-24-2023 End: 04-06-2023 insulin NPH (HUMULIN N NPH INSULIN KWIKPEN) 100 unit/mL (3 mL) injection pen 10 units at bedtime 5 Each 11 03/24/2023 04/06/2023 Discontinued Comment on above: 10 units at bedtime 15 units at bedtime 22 units at bedtime 3 ml insulin lispro 100 unt/ml pen injector (20 sources) Insulin Analog Start: 02-22-2024 End: 02-21-2025 insulin lispro (HumaLOG KWIKPEN) 100 UNIT/ML pen injection Inject 5 Units under the skin in the morning and 5 Units at noon and 5 Units in the evening. Inject with meals. 15 mL 12 02/22/2024 02/21/2025 Active Start: 02-21-2024 End: 02-22-2024 inject 5 [IU] by subcutaneous injection three times daily at mealtime 5 Units, SubCUTAneous, 3 times daily with meals, First dose (after last modification) on 02/21/24 at 0800 Start: 02-20-2024 End: 02-22-2024 inject 6 [IU] by subcutaneous injection three times daily at mealtime 0-6 Units, SubCUTAneous, 3 times daily with meals, First dose on 02/20/24 at 0800, Low Dose Correction Algorithm Glucose: Dose: LESS than 139 No Insulin 140-199 1 Unit 200-249 2 Units 250-299 3 Units 300-349 4 Units 350-400 5 Units Above 400 6 Units Start: 02-20-2024 End: 02-21-2024 inject 9 [IU] by subcutaneous injection three times daily at mealtime 9 Units, SubCUTAneous, 3 times daily with meals, First dose on Thu02/20/24 at 0800 Start: 02-18-2024 End: 02-20-2024 inject 26 [IU] by subcutaneous injection three times daily at mealtime 26 Units, SubCUTAneous, 3 times daily with meals, First dose (after last modification) on Thu02/18/24 at 1245 Start: 02-17-2024 End: 02-18-2024 inject 50 [IU] by subcutaneous injection three times daily at mealtime 50 Units, SubCUTAneous, 3 times daily with meals, First dose (after last modification) on Thu02/17/24 at 1200 Start: 02-17-2024 inject 12 [IU] by russell bcutaneous injection once 12 Units, SubCUTAneous, Once, On Thu02/17/24 at 1100, For 1 dose Start: 02-17-2024 inject 14 [IU] by russell bcutaneous injection once 14 Units, SubCUTAneous, Once, On Thu02/17/24 at 0930, For 1 dose Start: 02-16-2024 inject 8 [IU] by sub cutaneous injection once 8 Units, SubCUTAneous, Once, On Thu02/16/24 at 2030, For 1 dose, Please recheck blood sugar in 1 hour after administration. Start: 02-16-2024 inject 7 [IU] by sub cutaneous injection once 7 Units, SubCUTAneous, Once, On Thu02/16/24 at 1845, For 1 dose, Please repeat BGT in 1 hour after administration Start: 02-16-2024 End: 02-17-2024 inject 42 [IU] by subcutaneous injection three times daily at mealtime 42 Units, SubCUTAneous, 3 times daily with meals, First dose (after last modification) on Thu02/16/24 at 1700 Start: 02-16-2024 inject 10 [IU] by russell bcutaneous injection once 10 Units, SubCUTAneous, Once, On Thu02/16/24 at 1515, For 1 dose Start: 02-16-2024 End: 02-16-2024 inject 32 [IU] by subcutaneous injection once daily at lunch 32 Units, SubCUTAneous, Daily With Lunch, First dose on Thu02/16/24 at 1215 Start: 11-29-2023 End: 03-31-2024 insulin lispro (HUMALOG KWIK PEN) 100 unit/mL Indications: Diabetes mellitus type 1, controlled, without complications (HCC) 12 units prior to each meal + scale 5 Each 11/29/2023 03/31/2024 Discontinued Start: 11-22-2023 End: 11-29-2023 insulin lispro (HUMALOG KWIK PEN) 100 unit/mL Indications: Diabetes mellitus type 1, controlled, without complications (HCC) 8 units prior to each meal + scale 5 Each 11/22/2023 11/29/2023 Discontinued Start: 09-26-2023 End: 11-22-2023 insulin lispro (HUMALOG KWIK PEN) 100 unit/mL Indications: Diabetes mellitus type 1, controlled, without complications (HCC) 5 units prior to each meal + scale 5 Each 10/25/2023 11/22/2023 Discontinued Start: 04-10-2023 End: 09-16-2023 insulin lispro (HUMALOG KWIK PEN) 100 unit/mL 7 units prior to breakfast 10 units prior to lunch and dinner + scale . 5 Each 04/10/2023 09/16/2023 Discontinued End: 02-22-2024 Insulin Lispro (Humalog) 100 UNIT/ML solution injection Inject 24 Units under the skin in the morning and 24 Units at noon and 24 Units in the evening. Inject with meals. 02/22/2024 Discontinued (Stop taking at discharge) Comment on above: 7 units prior to jennifer akfast 10 units prior to lunch and dinner + scale . isopropyl alcohol 0.7 ml/ml medicated pad (20 sources) Start: 11-18-2021 alcohol swabs (ALCOHOL PADS) Indications: Encounter for immunization Apply 1 application to affected area once daily. 100 Each 2 11/18/2021 Active Comment on above: Apply 1 application to affected area once daily. ketotifen 0.25 mg/ml ophthalmic solution (20 sources) Histamine-1 Receptor Inhibitor Start: 05-13-2023 End: 05-12-2024 ketotifen fumarate (ZADITOR) 0.025 % (0.035 %) ophthalmic solution Use 1 Drop in both eyes two times a day. As needed 5 mL 11 05/13/2023 05/12/2024 Active Start: 11-18-2021 End: 11-18-2022 ketotifen fumarate (ZADITOR) 0.025 % (0.035 %) ophthalmic solution Use 1 Drop in both eyes twice daily. As needed 5 mL 11/18/2021 11/18/2022 Active Comment on above: 1 Drop twice daily. As needed Use 1 Drop in both e yes twice daily. As needed Use 1 Drop in both e yes two times a day. As needed lidocaine 0.05 mg/mg medicated patch (20 sources) Antiarrhythmic, Amide Local Anesthetic Start: 04-29-20 End: 08-06-19 apply 1 dose transdermal route every twenty-four hours lidocaine (LIDODERM) 5 % Indications: Chronic right-sided low back pain with right-sided sciatica Apply 1 Patch as directed every 24 hours. Remove old patch prior to placing new patch. Location: low back 30 Patch 2 08/05/2024 Active Comment on above: Apply 1 Patch as dir ected every 24 hours. Remove old patch prior to placing new patch. Location: low back loratadine 10 mg oral tablet (20 sources) Start: 03-28-20 End: 08-06-19 take 1 tablet by mouth once daily as needed loratadine (CLARITIN) 10 mg tablet Take 1 tablet by mouth once daily as needed. 90 tablet 1 08/05/2024 Active Comment on above: Take 1 tablet by isabella th once daily. Take 1 tablet by isabella th once daily as needed. Loratadine / Pseudoephedrine (4 sources) alpha-Adrenergic Agonist Loratadine-Pseudo ephedrine (PX ALLERGY RELIEF D, LORATID, PO) Take by mouth. Active 24 hr metFORMIN hydrochloride 500 mg extended release oral tablet (20 sources) Biguanide Start: 02-16-20 End: 02-20-20 take 1000 mg by mouth twice daily at mealtime 1,000 mg, Oral, 2 times daily with meals, First dose on Thu02/16/24 at 1700 Start: 04-01-2021 End: 02-21-2025 take 2 tablets by mouth twice daily at mealtime metFORMIN ER (GLUCOPHAGE XR) 500 mg 24 hr tablet Take 2 tablets by mouth two times a day with meals. 360 tablet 3 06/30/2023 Active take 1 tablet by isabella th in the morning, then take 1 tablet by mouth every twenty-four hours at mealtime metFORMIN, OSM, (Fortamet) 1000 MG 24 hr tablet Take 1,000 mg by mouth in the morning and 1,000 mg in the evening. Take with meals. Do not crush, chew, or split.. Active Comment on above: Take 2 tablets by mo ut twice daily with meals. Take 2 tablets by mo ut two times a day with meals. metroNIDAZOLE 500 mg oral tablet (4 sources) Nitroimidazole Antimicrobial Start: 01-08-20 End: 01-15-20 take 1 tablet by mouth twice daily metroNIDAZOLE (FLAGYL) 500 mg tablet Take 1 tablet by mouth two times a day for 7 days. 14 tablet 0 01/08/2024 01/15/2024 Active Start: 10-15-2023 End: 10-22-2023 take 1 tablet by mouth twice daily metroNIDAZOLE (FLAGYL) 500 mg tablet Take 1 tablet by mouth two times a day for 7 days. 14 tablet 0 10/15/2023 10/22/2023 Active omeprazole 40 mg delayed release oral capsule (20 sources) Proton Pump Inhibitor Start: 02-15-2024 End: 08-05-2024 take 1 capsule by mouth once daily omeprazole (PRILOSEC) 40 mg capsule Take 1 capsule by mouth once daily. 30 capsule 11 08/05/2024 Active Start: 12-24-2020 End: 10-17-2022 take 1 capsule by mouth once daily, then take 1 capsule by mouth once daily omeprazole (PRILOSEC) 20 mg capsule Indications: Gastroesophageal reflux disease, unspecified whether esophagitis present Take 1 capsule by mouth once daily. Double up to take 40 mg x1 week while on prednisone and Toradol then decrease back to one tab once daily 100 capsule 0 10/17/2022 Active take 1 tablet by isabella once daily before breakfast omeprazole OTC (PriLOSEC OTC) 20 MG EC tablet Take 20 mg by mouth every morning (before breakfast). Do not crush, chew, or split. Active Comment on above: Take 1 capsule by mo uth once daily. Take 1 capsule by mo [facility] once daily. Double up to take 40 mg x1 week while on prednisone and Toradol then decrease back to one tab once daily ondansetron 4 mg disintegrating oral tablet (20 sources) Serotonin-3 Receptor Antagonist Start: 10-18-19 take 1 tablet by mouth every six hours as needed ondansetron orally disintegrating (ZOFRAN ODT) 4 mg disintegrating tablet Take 1 tablet by mouth every 6 hours as needed for nausea/vomiting. 10 tablet 10/17/2022 Active Start: 12-21-2020 End: 05-06-2022 take 1 tablet by mouth every eight hours as needed for nausea and nausea ondansetron (ZOFRAN) 4 mg tablet Indications: Nausea Take 1 tablet by mouth every 8 hours as needed for nausea/vomiting. 20 tablet 0 05/06/2022 Active Comment on above: Take 1 tablet by isabella every 8 hours as needed for nausea/vomiting. Take 1 tablet by isabella every 6 hours as needed for nausea/vomiting. oxyCODONE hydrochloride 5 mg oral tablet (6 sources) Opioid Agonist Start: End: take 1 tablet by mouth every six hours as needed for pain oxyCODONE (Roxicodone) 5 MG immediate release tablet Indications: Postoperative pain Take 1 tablet (5 mg) by mouth every 6 hours as needed for severe pain (7-10) for up to 5 days. 15 tablet 02/22/2024 02/27/2024 Active Start: 02-20-2024 End: 02-22-2024 take 1 tablet by mouth every four hours as needed for pain oxyCODONE (Roxicodone) immediate release tablet 5 mg MV-Min-Fe Fum-FA-DHA ( 1 PO) (4 sources) MV-Min- Fe Fum-FA-DHA ( 1 PO) Take by mouth. Active sertraline 100 mg oral tablet (20 sources) Serotonin Reuptake Inhibitor Start: 03-31-2024 take 1.5 tablets by mouth once sertraline (ZOLOFT) 100 mg tablet Take 1.5 tablets by mouth every afternoon. 90 tablet 2 03/31/2024 Active Start: 02-22-2024 End: 02-21-2025 take 3 tablets by mouth once daily sertraline (Zoloft) 50 MG tablet Take 3 tablets (150 mg) by mouth Nightly. 90 tablet 11 02/22/2024 02/21/2025 Active Start: 02-17-2024 End: 02-22-2024 take 150 mg by mouth once daily 150 mg, Oral, Nightly, First dose (after last modification) on 02/17/24 at 2100 Start: 02-15-2024 End: 02-17-2024 take 100 mg by mouth once daily 100 mg, Oral, Nightly, First dose on Thu02/15/24 at 2230 Start: 04-17-2023 End: 03-31-2024 take 1 tablet by mouth once daily sertraline (ZOLOFT) 100 mg tablet take 1 tablet by mouth once daily. 90 tablet 2 10/22/2023 03/31/2024 Discontinued (Adjust Sig - Block E-Cancel) Start: 02-03-2023 End: 04-17-2023 take 1 tablet by mouth once daily sertraline (ZOLOFT) 50 mg tablet Take 1 tablet by mouth once daily. 30 tablet 2 02/03/2023 04/17/2023 Discontinued End: 02-22-2024 take 4 tablets by mouth once daily sertraline (Zoloft) 25 MG tablet Take 100 mg by mouth daily. 02/22/2024 Discontinued (Stop taking at discharge) Comment on above: Take 1 tablet by isabella th once daily. Completed/Discontinued Medications Medication Drug Class(es) Dates Sig (Normalized) Sig (Original) acetaminophen 500 mg / caffeine 65 mg oral tablet (2 sources) Central Nervous System Stimulant, Methylxanthine Start: 02-19-2024 End: 02-20-2024 take 2 tablets by mouth every six hours as needed for headache 2 tablet, Oral, Every 6 hours PRN, headaches, Starting on Thu02/19/24 at 1333 acetaminophen 325 mg / HYDROcodone bitartrate 7.5 mg oral tablet (3 sources) Opioid Agonist Start: 02-17-2022 End: 02-24-2022 take 1 tablet by mouth twice daily as needed for pain HYDROcodone-Acet aminophen (NORCO) 7.5-325 mg per tablet Indications: Acute right-sided low back pain without sciatica Take 1 tablet by mouth twice daily as needed for pain for up to 7 days. Do not start before February 17, 2022. 14 tablet 0 02/17/2022 02/24/2022 Start: 01-06-2022 End: 01-13-2022 take 1 tablet by mouth every eight hours as needed for pain HYDROcodone-Acetaminophen (NORCO) 7.5-32 5 mg per tablet Indications: Acute right-sided low back pain without sciatica Take 1 tablet by mouth every 8 hours as needed for pain for up to 7 days. 21 tablet 0 01/06/2022 01/13/2022 Active Comment on above: Take 1 tablet by isabella th every 8 hours as needed for pain for up to 7 days. Take 1 tablet by isabella th twice daily as needed for pain for up to 7 days. Do not start before February 17, 2022. 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 90 tablet 3 05/26/2023 03/31/2024 Discontinued Comment on above: Take 1 tablet by isabella th once daily. 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 betamethasone 3 mg/ml / betamethasone acetate 3 mg/ml injectable suspension (2 sources) Corticosteroid Start: End: inject 12 mg by intramuscular injection every twenty-four hours 12 mg, IntraMUSCular, Every 24 hours, First dose on Thu02/16/24 at 0445, For 2 doses Blood-Glucose Meter monitoring kit (20 sources) Start: 021 Blood-Glucose Meter monitoring kit Glucose Meter of Choice - Kit - Dx: Type 2 DM - Controlled E11.9 - Test 3 times daily -Insulin: Yes 1 Each 0 11/29/2020 Active Comment on above: Glucose Meter of Cho ice - Kit - Dx: Type 2 DM - Controlled E11.9 - Test 3 times daily -Insulin: Yes calcium chloride 0.0014 meq/ml / potassium chloride 0.004 meq/ml / sodium chloride 0.103 meq/ml / sodium lactate 0.028 meq/ml injectable solution (4 sources) Start: End: 500 mL, IntraVENous, at 250 mL/hr, Administer over 2 Hours, Once, On Thu02/19/24 at 2115, For 1 dose Start: 02-18-2024 End: 02-18-2024 1,000 mL, IntraVENous, at 1, 000 mL/hr, Administer over 1 Hours, Once, On Thu02/18/24 at 1915, For 1 dose chlorhexidine gluconate 1.2 mg/ml mouthwash (20 sources) Start: 12-31-2020 Chlorhexidine Gluconate (PERIDEX) 0.12 % solution twice daily. 0 12/31/2020 Active Comment on above: twice daily. cholecalciferol 9.52 unt/ml / glucose 357 mg/ml oral gel (2 sources) Vitamin D Start: 02-20-2024 End: 02-22-2024 15 g, Oral, As needed, low blood sugar, Starting on 02/20/24 at 0521, If blood glucose less than 50 mg/dL and patient ALERT and NOT NPO, give 2 tubes glucose gel. If blood glucose less than 70 mg/dL and patient ALERT and NOT NPO, give 1 tube glucose gel. Repeat blood glucose in 15 minutes. If blood glucose is less than 70 mg/dL, repeat treatment and recheck blood glucose in 15 minutes x2 and notify provider. cyclobenzaprine hydrochloride 10 mg oral tablet (20 sources) Muscle Relaxant Start: 02-15-2024 End: 02-15-2024 take 10 mg by mouth once 10 mg, Oral, Once, On Thu02/15/24 at 2345, For 1 dose Start: 02-15-2024 End: 02-15-2024 take 10 mg by mouth once 10 mg, Oral, Once, On Mon at 2345, For 1 dose Start: 12-30-2021 End: 01-31-2022 take 1 tablet by mouth at bedtime as needed for muscle spasms cyclobenzaprine (FLEXERIL) 10 mg tablet Indications: Lower abdominal pain Take 1 tablet by mouth at bedtime as needed for muscle spasm (may make drowsy). Take at bedtime 30 tablet 0 01/31/2022 Active Comment on above: Take 1 tablet by isabella th at bedtime as needed for muscle spasm (may make drowsy). Take at bedtime DEXCOM G7 SENSOR stephanie (20 sources) Start: 10-22-2023 End: 03-08-2024 DEXCOM G7 SENSOR stephanie INSERT 1 SENSOR ON THE BACK OF ARM. REPLACE EVERY 10 DAYS DIRECTED. 3 Each 2 10/22/2023 03/08/2024 Discontinued Start: 10-22-2023 DEXCOM G7 SENS OR stephanie INSERT 1 SENSOR ON THE BACK OF ARM. REPLACE EVERY 10 DAYS DIRECTED. 3 Each 2 10/22/2023 Active 1 ml diphenhydrAMINE hydrochloride 50 mg/ml cartridge (2 sources) Histamine-1 Receptor Antagonist Start: 02-20-2024 End: 02-22-2024 take 25 mg intravenously every six hours as needed 0.5 ml dulaglutide 1.5 mg/ml auto-injector (20 sources) GLP-1 Receptor Agonist Start: 04-20-2023 End: 09-09-2023 inject 0.75 mg by subcutaneous injection every week dulaglutide (TRULICITY) 0.75 mg/0.5 mL pen injector Inject 0.75 mg subcutaneously one time a week. 4 Each 04/20/2023 09/09/2023 Discontinued Start: 07-16-2021 End: 02-07-2022 inject 1.5 mg by subcutaneous injection every week dulaglutide (TRULICITY) 1.5 mg/0.5 mL pen injector Inject 1.5 mg subcutaneously one time a week. 2 mL 5 02/07/2022 Active Comment on above: Inject 1.5 mg subcut aneously one time a week. Inject 0.75 mg subcu taneously one time a week. empagliflozin 10 mg oral tablet (3 sources) Sodium-Glucose Cotransporter 2 Inhibitor Start: 2021 End: 2021 take 1 tablet by mouth once daily at breakfast empagliflozin (JARDIANCE) 10 mg tablet Take 1 tablet by mouth daily with breakfast. 30 tablet 5 08/22/2021 08/26/2021 Discontinued (Allergic response) Comment on above: Take 1 tablet by isabella th daily with breakfast. 0.6 ml enoxaparin sodium 100 mg/ml prefilled syringe (2 sources) Low Molecular Weight Heparin Start: 2023 End: 2023 inject 60 mg by subcutaneous injection once daily 60 mg, SubCUTAneous, Daily, First dose on 02/20/24 at 1515, , Indication of Use: Prophylaxis-DVT/PE famotidine 20 mg oral tablet (20 sources) Histamine-2 Receptor Antagonist Start: 2023 End: 2023 take 1 tablet by mouth every twenty-four hours as needed for gastroesophageal reflux disease Start: 07-11-2022 take 1 tablet by isabella th once daily famotidine (PEPCID) 20 mg tablet Indications: Gastroesophageal reflux disease, unspecified whether esophagitis present Take 1 tablet by mouth once daily. 30 tablet 5 07/11/2022 Active Start: 09-19-2020 End: 12-24-2021 take 1 tablet by mouth once daily famotidine (PEPCID) 20 mg tablet Indications: Gastroesophageal reflux disease, unspecified whether esophagitis present Take 1 tablet by mouth once daily. 30 tablet 5 12/24/2021 Active Comment on above: Take 20 mg by mouth once daily. Take 1 tablet by isabella th once daily. ferrous sulfate 325 mg oral tablet (2 sources) Start: 02-20-2024 End: 02-22-2024 glucagon (rdna) 1 mg injection (2 sources) Antihypoglycemic Agent Start: 02-20-2024 End: 02-22-2024 1 mg, IntraMUSCular, PRN, low blood sugar, Blood glucose less than 70 mg/dL and patient NOT ALERT or NPO and does not have IV access., Starting on 02/20/24 at 0521, After administration, attempt intravenous access and start D5W at 100 mL/hr. Repeat blood glucose in 15 minutes x2 and notify provider. 150 ml glucose 50 mg/ml injection (4 sources) Start: 02-20-2024 End: 02-22-2024 12.5 g, IntraVENous, PRN, low blood sugar, Blood glucose less than 70 mg/dL and patient NOT ALERT or NPO., Starting on 02/20/24 at 0521, If patient does not respond within 5 minutes, repeat dose x1. Start D5W at 100 mL/hour until ordering provider can be reached. Repeat blood glucose in 15 minutes. If blood glucose is less than 70 mg/dL, repeat treatment and recheck blood glucose in 15 minutes x2. If using Glucostabilizer, dose as instructed per system. Start: 02-20-2024 End: 02-22-2024 100 mL/hr, IntraVENous, PRN, Blood sugar less than 70mg/dL, Starting on 02/20/24 at 0521, Start infusion following administration of dextrose 50% or glucagon. 250 ml glucose 50 mg/ml / sodium chloride 4.5 mg/ml injection (2 sources) Start: 02-15-2024 End: 02-17-2024 take 50 mL intravenously every hour 50 mL/hr, IntraVENous, Continuous, Starting on Thu02/15/24 at 2200 HYDROmorphone (Dilaudid) injection 0.25 mg (2 sources) Start: 02-20-2024 End: 02-22-2024 HYDROmorphone (Dilaudid) injection 0.25 mg hydrOXYzine pamoate 25 mg oral capsule (20 sources) Antihistamine Start: 02-17-2024 End: 02-22-2024 take 1 capsule by mouth every six hours as needed for anxiety 25 mg, Oral, Every 6 hours PRN, itching, anxiety, Starting on 02/20/24 at 2121 Start: 02-16-2024 End: 02-16-2024 take 50 mg by mouth once 50 mg, Oral, Once, On Tue at 2200, For 1 dose Start: 02-07-2022 take 1 capsule by [facility] once daily at bedtime hydrOXYzine pamoate (VISTARIL) 25 mg capsule Take 1 capsule by mouth daily at bedtime. 90 capsule 3 02/07/2022 Active Start: 08-13-2021 End: 02-07-2022 take 1 capsule by mouth every eight hours as needed hydrOXYzine pamoate (VISTARIL) 25 mg capsule Take 1 capsule by mouth three times daily as needed for anxiety. 30 capsule 1 12/24/2021 02/07/2022 Discontinued Comment on above: Take 1 capsule by mo [facility] three times daily as needed for anxiety. Take 1 capsule by [facility] daily at bedtime. 3 ml insulin detemir 100 unt/ml pen injector (20 sources) Insulin Analog Start: 09-05-2021 End: 01-31-2022 LEVEMIR FLEXTOUCH U-100 INSULIN 100 unit/mL (3 mL) injection pen Indications: 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 alf insulin use (HCC) Inject 48 Units subcutaneously twice daily. 30 Each 3 01/31/2022 Active Start: 08-26-2021 End: 09-05-2021 LEVEMIR FLEXTOUCH U-100 INSU ERIN 100 unit/mL (3 mL) injection pen Indications: 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 alf insulin use (HCC) Inject 44 units in the morning and 44 units in the evening as directed. 0 08/26/2021 09/05/2021 Discontinued Start: 08-22-2021 End: 08-26-2021 LEVEMIR FLEXTOUCH U-100 INSU ERIN 100 unit/mL (3 mL) injection pen Indications: 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 alf insulin use (HCC) Inject 40 units in the morning and 40 units in the evening as directed. 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 0 08/22/2021 08/22/2021 Discontinued (Adjust Sig - Block E-Cancel) Comment on above: Inject 44 units in t he morning and 48 units in the evening as directed. Inject 44 units in t he morning and 44 units in the evening as directed. Inject 40 units in t he morning and 40 units in the evening as directed. Inject 48 Units subc utaneously twice daily. Inject 44 units in the morning and 44 units in the evening as directed. Inject 48 Units subc utaneously twice daily. insulin lispro (HUMALOG KWIKPEN) 100 unit/mL (12 sources) Start: 04-10-2023 insulin lispro (HUMALOG KWIKPEN) 100 unit/mL 7 units prior to breakfast 10 units prior to lunch and dinner + scale . 5 Each 04/10/2023 Active Start: 04-06-2023 End: 04-10-2023 insulin lispro (HUMALOG KWIK PEN) 100 unit/mL 5 units prior to meals + scale. 5 Each 04/06/2023 04/10/2023 Discontinued Start: 04-06-2023 insulin lispro (HUMALOG KWIKPEN) 100 unit/mL 5 units prior to meals + scale. 5 Each 04/06/2023 Active Start: 03-24-2023 End: 04-06-2023 insulin lispro (HUMALOG KWIK PEN) 100 unit/mL 5 units prior to meals. 5 Each 03/24/2023 04/06/2023 Discontinued Comment on above: 5 units prior to stephany ls. 5 units prior to stephany ls + scale. 7 units prior to jennifer akfast 10 units prior to lunch and dinner + scale . 100 ml insulin, regular, human 1 unt/ml injection (2 sources) Insulin Start: End: 1-50 Units/hr (1-50 mL/hr), IntraVENous, Continuous, Starting on Thu02/15/24 at 2200, Discontinue immediately after delivery of placenta. Low target 60 High target LESS THAN or EQUAL to 125 Glucose Insulin Rate 100-120 0.5 units/hr; 121-140 1 units/hr; 141-160 2 units/hr; 161-180 4 units/hr; 181-200 5 units/hr; >200 6 units/hr and call MD Hold insulin infusion if blood glucose is LESS THAN 100 mg/dL. If blood glucose LESS THAN 60 follow hypoglycemia treatment orders, continue to check blood glucose as ordered, and restart insulin infusion if and when blood glucose increases above 125. BUD: 30 days at room temperature 1 ml ketorolac tromethamine 30 mg/ml cartridge (4 sources) Nonsteroidal Anti-inflammatory Drug, Cyclooxygenase Inhibitor Start: End: take 30 mg intravenously every six hours 30 mg, IntraVENous, Every 6 hours, First dose on 02/20/24 at 0900, For 4 doses, , This may be discontinued prior to 4 doses if patient pain is well controlled and able to take PO ibuprofen. 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 90 tablet 3 11/21/2022 01/23/2023 Discontinued Comment on above: Take 1 tablet by isabella th once daily. loperamide hydrochloride 2 mg oral capsule (2 sources) Opioid Agonist Start: 4 End: 4 take 2 mg by mouth four times daily as needed for diarrhea 2 mg, Oral, 4 times daily PRN, diarrhea, Starting on Angela 02/18/24 at 1142, After each loose stool M-ADAM PLUS 27 mg iron- 1 mg (20 sources) Start: 4 End: 5 take 1 tablet by mouth once daily M- PLUS 27 mg iron- 1 mg take 1 tablet by mouth once daily. 30 tablet 5 11/19/2023 08/05/2024 Discontinued Start: 11-19-2023 take 1 tablet by isabella th once daily M-ADAM PLUS 27 mg iron- 1 mg take 1 tablet by mouth once daily. 30 tablet 5 11/19/2023 Active magnesium oxide 500 mg oral tablet (13 sources) Start: 01-08-2024 End: 01-07-2025 take 1 tablet by mouth once daily Magnesium Oxide 500 mg magnesium tab Take 1 tablet by mouth once daily. 90 tablet 3 01/08/2024 03/31/2024 Discontinued 500 ml magnesium sulfate 40 mg/ml injection (8 sources) Start: 02-20-2024 End: 02-20-2024 1,000 mg/hr (25 mL/hr), IntraVENous, Administer over 12 Hours, Continuous, Starting on 02/20/24 at 0015, For 12 hours, Pre-Infusion: Assess baseline vital signs (blood pressure, pulse, pulse oximetry, respirations, and temperature), breath sounds, strict intake and output, neurologic status (deep tendon reflexes, presence or absence of clonus, level of consciousness (LOC), presence of headaches/visual disturbances, presence/absence of epigastric pain, and if applicable Heart Rate/Contractions (continuous monitoring). Loading Dose/Infusion: - Stay with the patient during the loading dose and the first hour of the infusion to monitor for adverse reactions. - Continuously monitor the patient's pulse oximetry. - Monitor the patient's vital signs, deep tendon reflexes, level of consciousness every 15 minutes for the first hour after the start of the loading dose, then every 30 minutes for 1 hour, then every 4 hours thereafter unless more frequent assessments are warranted based on the patient's condition. Notify care provider immediately of absent deep tendon reflexes, a urine output of less than 30 mL/hour, respirations of less than 10 breaths/minute, or an oxygen saturation level of less than 95% Grams to milligrams conversion table: 1 gram = 1000 mg 2 grams = 2000 mg 4 grams = 4000 mg 6 grams = 6000 mg 20 grams = 20,000 mg, Indications: Neuroprotection Start: 02-20-2024 End: 02-20-2024 4,000 mg, IntraVENous, Admin ister over 20 Minutes, Once, On 02/20/24 at 0000, For 1 dose, Pre-Infusion: Assess baseline vital signs (blood pressure, pulse, pulse oximetry, respirations, and temperature), breath sounds, strict intake and output, neurologic status (deep tendon reflexes, presence or absence of clonus, level of consciousness (LOC), presence of headaches/visual disturbances, presence/absence of epigastric pain, and if applicable Heart Rate/Contractions (continuous monitoring). Loading Dose/Infusion: - Stay with the patient during the loading dose and the first hour of the infusion to monitor for adverse reactions. - Continuously monitor the patient's pulse oximetry. - Monitor the patient's vital signs, deep tendon reflexes, level of consciousness every 15 minutes for the first hour after the start of the loading dose, then every 30 minutes for 1 hour, then every 4 hours thereafter unless more frequent assessments are warranted based on the patient's condition. Notify care provider immediately of absent deep tendon reflexes, a urine output of less than 30 mL/hour, respirations of less than 10 breaths/minute, or an oxygen saturation level of less than 95% Grams to milligrams conversion table: 1 gram = 1000 mg 2 grams = 2000 mg 4 grams = 4000 mg 6 grams = 6000 mg 20 grams = 20,000 mg Start: 02-15-2024 End: 02-16-2024 1,000 mg/hr (25 mL/hr), Intr aVENous, Continuous, Starting on Thu02/15/24 at 2215, For 12 hours, Pre-Delivery, Pre-Infusion: Assess baseline vital signs (blood pressure, pulse, pulse oximetry, respirations, and temperature), breath sounds, strict intake and output, neurologic status (deep tendon reflexes, presence or absence of clonus, level of consciousness (LOC), presence of headaches/visual disturbances, presence/absence of epigastric pain, and if applicable Heart Rate/Contractions (continuous monitoring). Loading Dose/Infusion: - Stay with the patient during the loading dose and the first hour of the infusion to monitor for adverse reactions. - Continuously monitor the patient's pulse oximetry. - Monitor the patient's vital signs, deep tendon reflexes, level of consciousness every 15 minutes for the first hour after the start of the loading dose, then every 30 minutes for 1 hour, then every 4 hours thereafter unless more frequent assessments are warranted based on the patient's condition. Notify care provider immediately of absent deep tendon reflexes, a urine output of less than 30 mL/hour, respirations of less than 10 breaths/minute, or an oxygen saturation level of less than 95% Grams to milligrams conversion table: 1 gram = 1000 mg 2 grams = 2000 mg 4 grams = 4000 mg 6 grams = 6000 mg 20 grams = 20,000 mg Start: 02-15-2024 End: 02-15-2024 4,000 mg, IntraVENous, Admin ister over 20 Minutes, Once, On Thu02/15/24 at 2200, For 1 dose, Pre-Delivery, Pre-Infusion: Assess baseline vital signs (blood pressure, pulse, pulse oximetry, respirations, and temperature), breath sounds, strict intake and output, neurologic status (deep tendon reflexes, presence or absence of clonus, level of consciousness (LOC), presence of headaches/visual disturbances, presence/absence of epigastric pain, and if applicable Heart Rate/Contractions (continuous monitoring). Loading Dose/Infusion: - Stay with the patient during the loading dose and the first hour of the infusion to monitor for adverse reactions. - Continuously monitor the patient's pulse oximetry. - Monitor the patient's vital signs, deep tendon reflexes, level of consciousness every 15 minutes for the first hour after the start of the loading dose, then every 30 minutes for 1 hour, then every 4 hours thereafter unless more frequent assessments are warranted based on the patient's condition. Notify care provider immediately of absent deep tendon reflexes, a urine output of less than 30 mL/hour, respirations of less than 10 breaths/minute, or an oxygen saturation level of less than 95% Grams to milligrams conversion table: 1 gram = 1000 mg 2 grams = 2000 mg 4 grams = 4000 mg 6 grams = 6000 mg 20 grams = 20,000 mg meloxicam 15 mg oral tablet (9 sources) Nonsteroidal Anti-inflammatory Drug Start: 02-03-2022 End: 03-05-2022 take 1 tablet by mouth once daily for pain meloxicam (MOBIC) 15 mg tablet Take 1 tablet by mouth once daily. for pain. Take with food. 30 tablet 0 02/03/2022 02/07/2022 Discontinued Start: 12-30-2021 End: 01-29-2022 take 1 tablet by mouth once daily for pain meloxicam (MOBIC) 15 mg tablet Take 1 tablet by mouth once daily. for pain. Take with food. 30 tablet 0 12/30/2021 01/29/2022 Active Comment on above: Take 1 tablet by isabella once daily. for pain. Take with food. 2 ml metoclopramide 5 mg/ml prefilled syringe (4 sources) Dopamine-2 Receptor Antagonist Start: End: take 10 mg intravenously every six hours 10 mg, IntraVENous, Every 6 hours, First dose on 02/20/24 at 0300 Start: 02-19-2024 End: 02-19-2024 take 10 mg by mouth once 10 mg, Oral, Once, On Fri at 1215, For 1 dose nabumetone 500 mg oral tablet (20 sources) Nonsteroidal Anti-inflammatory Drug Start: 04-20-2023 take 1 tablet by mouth every twelve hours as needed nabumetone (RELAFEN) 500 mg tablet Take 1 tablet by mouth two times a day as needed. TAKE WITH FOOD 60 tablet 5 04/20/2023 Active Start: 04-14-2022 End: 08-30-2022 take 1 tablet by mouth every twelve hours as needed nabumetone (RELAFEN) 500 mg tablet Take 1 tablet by mouth twice daily as needed. TAKE WITH FOOD 60 tablet 5 08/30/2022 Active Start: 02-07-2022 End: 04-12-2022 take 1 tablet by mouth every twelve hours as needed nabumetone (RELAFEN) 500 mg tablet Take 1 tablet by mouth twice daily as needed. TAKE WITH FOOD 60 tablet 0 03/08/2022 04/12/2022 Discontinued Comment on above: Take 1 tablet by isabella th twice daily as needed. TAKE WITH FOOD Take 1 tablet by isabella th two times a day as needed. TAKE WITH FOOD 1 ml naloxone hydrochloride 0.4 mg/ml injection (2 sources) Opioid Antagonist Start: 02-20-2024 End: 02-22-2024 0.4 mg, IntraVENous, Every 5 min PRN, opioid reversal, respiratory depression, Starting on 02/20/24 at 0518, +++ For RR Nicotine (20 sources) Cholinergic Nicotinic Agonist Start: 02-16-2024 End: 02-22-2024 nicotine (Nicoderm, Step 1) 21 MG/24HR patch 1 patch Start: 12-05-2021 End: 02-07-2022 Nicotine Polacrilex [address] 1 Lozenge between cheek and gum as needed. Max of 20 lozenges per day 72 Lozenge 5 12/05/2021 02/07/2022 Discontinued (Other) Start: 10-03-2021 End: 12-05-2021 nicotine (NICODERM CQ) 14 mg /24 hr Apply 1 Patch as directed every 24 hours. The 14mg patch is to be used AFTER 6 weeks of using the 21mg patch. 14 Patch 0 10/03/2021 12/05/2021 Discontinued Start: 10-03-2021 End: 12-05-2021 apply 1 dose transdermal route every twenty-four hours nicotine (NICODERM CQ) 21 mg/24 hr Apply 1 Patch as directed every 24 hours. For 6 weeks, then use the 14mg patch for 2 weeks then the 7mg patch for 2 weeks. 21 Patch 1 10/03/2021 12/05/2021 Discontinued Start: 10-03-2021 End: 12-05-2021 nicotine (NICODERM CQ) 7 mg/ 24 hr Apply 1 Patch as directed every 24 hours. The 7mg patch is to be used AFTER 6 weeks of using the 14mg patch. 14 Patch 0 10/03/2021 12/05/2021 Discontinued Start: 10-03-2021 End: 12-05-2021 take 1 dose by mouth once daily as needed nicotine polacrilex (NICORETTE) 4 mg gum Take 1 Each by mouth as needed. Use the chew and park method. Do NOT use more than 24 pieces per day. 50 Each 5 10/03/2021 12/05/2021 Discontinued (Cost of medication) Comment on above: Apply 1 Patch as dir ected every 24 hours. For 6 weeks, then use the 14mg patch for 2 weeks then the 7mg patch for 2 weeks. Apply 1 Patch as dir ected every 24 hours. The 14mg patch is to be used AFTER 6 weeks of using the 21mg patch. Apply 1 Patch as dir ected every 24 hours. The 7mg patch is to be used AFTER 6 weeks of using the 14mg patch. Take 1 Each by mouth as needed. Use the chew and park method. Do NOT use more than [address] Lozenge betw een cheek and gum as needed. Max of 20 lozenges per day ondansetron ODT (Zofran-ODT) disintegrating tablet 4 mg (2 sources) Start: 02-20-20 End: 02-22-20 take 1 tablet by mouth every eight hours as needed for nausea and vomiting ondansetron ODT (Zofran-ODT) disintegrating tablet 4 mg oxytocin (Pitocin) 30 units in 500 mL infusion (2 sources) Start: 02-19-20 End: 02-20-20 125 jose d-units/min (125 mL/hr), IntraVENous, Continuous PRN, Bleeding, Starting on Thu02/19/24 at 2342, Pre-Delivery, Post- use ONLY after delivery of baby/ excessive bleeding/ uterine atony. Given after delivery of placenta AND the initial 30 unit bolus. Bag 2 of 2. 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 0 09/16/2023 Discontinued PNV no.[id number] ( GUMMIES) 400 mcg-35 mg- 25 mg-5 mg chew Take by mouth. 0 Active Comment on above: Take by mouth. Potassium Chloride in NaCl IVPB 20 mEq (2 sources) Start: 02-16-2024 End: 02-16-2024 20 mEq, IntraVENous, Administer over 2 Hours, Once, On Thu02/16/24 at 0300, For 1 dose, Max infusion rate = 10 mEq/hr Luldqevz-Nj-Svo-Fe-F A tab (20 sources) Start: 04-23-2023 End: 08-05-2024 take 1 tablet by mouth once daily Ncmqjajy-Ft-Erw-Fe-FA tab Take 1 tablet by mouth once daily. 30 tablet 5 04/23/2023 08/05/2024 Discontinued Start: 04-23-2023 take 1 tablet by isabella th once daily Clkcjkfe-At-Lpn-Fe-FA tab Take 1 tablet by mouth once daily. 30 tablet 5 04/23/2023 Active Comment on above: Take 1 tablet by isabella th once daily. vitamin tablet (4 sources) Start: 02-20-2024 End: 02-22-2024 Start: 02-16-2024 End: 02-18-2024 take 1 tablet by mouth once daily 1 tablet, Oral, Daily, First dose on Thu02/16/24 at 0900, Pre-Delivery, With First Dose As Scheduled. simethicone 80 mg chewable tablet (2 sources) Start: 02-20-2024 End: 02-22-2024 take 1 tablet by mouth every six hours as needed 80 mg, Oral, Every 6 hours PRN, flatulence, cramping, Starting on 02/20/24 at 0504, simvastatin 40 mg oral tablet (20 sources) HMG-CoA Reductase Inhibitor Start: 04-17-2023 End: 09-09-2023 take 1 tablet by mouth once daily at bedtime simvastatin (ZOCOR) 40 mg tablet Indications: Mixed hyperlipidemia Take 1 tablet by mouth daily at bedtime. 90 tablet 3 04/17/2023 09/09/2023 Discontinued Start: 07-18-2021 End: 02-07-2022 take 1 tablet by mouth once daily at bedtime simvastatin (ZOCOR) 40 mg tablet Indications: Mixed hyperlipidemia Take 1 tablet by mouth daily at bedtime. 90 tablet 3 02/07/2022 Active Comment on above: Take 1 tablet by isabella th daily at bedtime. 5 ml sodium chloride 9 mg/ml injection (20 sources) Start: 02-20-2024 End: 02-22-2024 5-40 mL, IntraVENous, Every 12 hours scheduled (2 times per day), First dose on 02/20/24 at 0900, , or Line Patency: Peripheral IV = 5 mL; Midline or Central Line = 10 mL/lumen. If following IV push medication, administer flush at same rate as the IV push. Flush volume is determined by type of infusion therapy being given. For non-viscous solutions use: Peripheral IV = 5 mL Midline or Central Line = 10 mL/lumen For viscous solutions (i.e. blood components, parenteral nutrition, contrast media, or after obtaining blood sample) use: Peripheral IV = 10 mL Midline or Central Line = 20 mL/lumen Start: 02-20-2024 End: 02-22-2024 Start: 02-20-2024 End: 02-22-2024 Start: 02-15-2024 End: 02-20-2024 10 mL, IntraVENous, Every 12 hours scheduled (2 times per day), First dose on 02/15/24 at 2200 Start: 06-25-2021 sodium chlorid e (SALINE NASAL) 0.65 % nasal spray Indications: History of environmental allergies Use 2-3 Sprays in the nose three times daily. 120 mL 11 06/25/2021 Active Comment on above: Use 2-3 Sprays in th e nose three times daily. tiZANidine 4 mg oral tablet (20 sources) Central alpha-2 Adrenergic Agonist Start: 06-25-19 22 tiZANidine (ZANAFLEX) 4 mg tablet Indications: Chronic right-sided low back pain with right-sided sciatica Take one as needed every 6 to 8 hours as needed for back pain 90 tablet 1 06/25/2021 Active Comment on above: Take one as needed e very 6 to 8 hours as needed for back pain 24 hr venlafaxine 75 mg extended release oral capsule (20 sources) Serotonin and Norepinephrine Reuptake Inhibitor Start: 06-08-19 23 take 1 capsule by mouth once daily venlafaxine ER (EFFEXOR XR) 150 mg 24 hr capsule Take 1 capsule by mouth once daily. 90 capsule 3 06/08/2022 Active Start: 05-06-2022 End: 08-30-2022 take 1 capsule by mouth once daily venlafaxine ER (EFFEXOR XR) 75 mg 24 hr capsule Take 1 capsule by mouth once daily. Add to the 150 mg dose daily 90 capsule 3 08/30/2022 Active Start: 07-23-2021 End: 06-06-2022 take 1 capsule by mouth once daily venlafaxine ER (EFFEXOR XR) 150 mg 24 hr capsule Take 1 capsule by mouth once daily. 90 capsule 3 02/07/2022 06/06/2022 Discontinued Comment on above: Take 1 capsule by mo uth once daily. Take 1 capsule by mo uth once daily. Add to the 150 mg dose daily Problems Active Problems Problem Classification Problem Date Documented Date Episodic/Chronic Abdominal pain (3 sources) Lower abdominal pain; Translations: [Lower abdominal pain, unspecified] Episodic Acute bronchitis (2 sources) Acute bronchitis, unspecified; Translations: [Acute bronchitis, unspecified] Onset: 01-30-2025 Episodic Adjustment disorders (6 sources) Adjustment disorder with anxious mood; Translations: [Adjustment disorder with anxiety] Onset: 02-18-2024 02-18-2024 Chronic Anxiety disorders (20 sources) Anxiety state; Translations: [Generalized anxiety disorder] Onset: 07-01-2022 Resolved: 04-12-2023 10-02-2020 Chronic Asthma (2 sources) Asthma; Translations: [Unspecified asthma, uncomplicated] Onset: 10-30-2023 08-05-2024 Chronic Conditions associated with dizziness or vertigo (1 source) Dizziness; Translations: [Dizziness and giddiness] Episodic Diabetes mellitus without complication (20 sources) Type 2 diabetes mellitus; Translations: [Type 2 diabetes mellitus without complications] Onset: 09-20-2024 10-02-2020 Chronic Diabetes or abnormal glucose tolerance complicating ; childbirth; or the puerperium (20 sources) and type 2 diabetes mellitus; Translations: [Pre-existing type 2 diabetes mellitus, in , first trimester] Onset: 09-16-2023 03-17-2023 Chronic Diabetes or abnormal glucose tolerance complicating ; childbirth; or the puerperium (20 sources) Gestational diabetes mellitus; Translations: [Gestational diabetes mellitus in , controlled by oral hypoglycemic drugs] Onset: 03-11-2023 03-11-2023 Episodic Esophageal disorders (20 sources) Gastroesophageal reflux disease; Translations: [Gastro-esophageal reflux disease without esophagitis] Onset: 10-02-2020 10-02-2020 Chronic Immunizations and screening for infectious disease (11 sources) Patient encounter status; Translations: [Encounter for immunization] Episodic Inflammatory diseases of female pelvic organs (20 sources) Bacterial vaginosis; Translations: [Acute vaginitis] Onset: 10-15-2023 10-15-2023 Episodic Menstrual disorders (1 source) Irregular periods; Translations: [Irregular menstruation, unspecified] 09-17-2023 Chronic Mood disorders (14 sources) Depressive disorder; Translations: [Depressive disorder] Onset: 07-01-2022 03-11-2023 Chronic Mycoses (2 sources) Tinea corporis; Translations: [Tinea corporis] Onset: 2025 Episodic Nausea and vomiting (4 sources) Nausea; Translations: [Nausea] Episodic Other complications of (20 sources) Maternal obesity complicating , childbirth and the puerperium, antepartum; Translations: [Obesity complicating , first trimester] Onset: 03-11-2023 03-11-2023 Chronic Other complications of (1 source) Obesity complicating , second trimester; Translations: [Other obesity due to excess calories affecting in second trimester] Onset: 04-13-2023 Chronic Other complications of (1 source) Uncertain viability of ; Translations: [ with inconclusive viability, not applicable or unspecified] 03-11-2023 Episodic Other complications of (1 source) Supervision of with other poor reproductive or obstetric history, unspecified trimester; Translations: [History of prior with short cervix, currently ] Onset: 10-30-2023 Episodic Other complications of (1 source) Supervision of other high risk pregnancies, unspecified trimester; Translations: [History of delivery, currently ] Onset: 10-30-2023 Episodic Other complications of (5 sources) Cervical cerclage suture present; Translations: [Maternal care for cervical incompetence, first trimester] 11-09-2023 Episodic Other complications of (1 source) Other mental disorders complicating the puerperium; Translations: [Mental disorders of mother, condition or complication] 03-31-2024 Episodic Other endocrine disorders (20 sources) Polycystic ovary syndrome; Translations: [Polycystic ovarian syndrome] Onset: 03-11-2023 03-11-2023 Chronic Other female genital disorders (1 source) Vaginal discharge; Translations: [Other specified noninflammatory disorders of vagina] 01-07-2024 Episodic Other nervous system disorders (1 source) Chronic pain syndrome; Translations: [Chronic pain syndrome] 07-23-2023 Chronic Other nervous system disorders (2 sources) Postoperative pain ; Translations: [Other acute postprocedural pain] 02-22-2024 Episodic Other nervous system disorders (2 sources) Other acute postprocedural pain; Translations: [Other acute postprocedural pain] Onset: 02-15-2024 Episodic Other nutritional; endocrine; and metabolic disorders (2 sources) Obesity; Translations: [Other obesity due to excess calories] Chronic Other nutritional; endocrine; and metabolic disorders (1 source) Obesity caused by energy imbalance; Translations: [Other obesity due to excess calories] 09-17-2023 Chronic Other nutritional; endocrine; and metabolic disorders (1 source) Other obesity due to excess calories; Translations: [Other obesity due to excess calories affecting in second trimester] Onset: 04-13-2023 Chronic Other skin disorders (1 source) Acquired nail deformity; Translations: [Other nail disorders] 04-07-2024 Episodic Other skin disorders (1 source) Onychomadesis; Translations: [Other nail disorders] 05-03-2024 Episodic Other upper respiratory infections (1 source) Viral upper respiratory tract infection; Translations: [Acute upper respiratory infection, unspecified] Episodic Residual codes; unclassified (4 sources) Tobacco user; Translations: [Tobacco use] Episodic Residual codes; unclassified (1 source) Gestation period, 15 weeks; Translations: [15 weeks gestation of ] 04-09-2023 Episodic Residual codes; unclassified (1 source) At risk for depressed mood during period; Translations: [Other specified personal risk factors, not elsewhere classified] 04-23-2023 Episodic Residual codes; unclassified (1 source) Gestation period, 6 weeks; Translations: [Less than 8 weeks gestation of ] 09-09-2023 Episodic Residual codes; unclassified (1 source) First trimester ; Translations: [Less than 8 weeks gestation of ] 09-16-2023 Episodic Residual codes; unclassified (1 source) Gestation period, 10 weeks; Translations: [10 weeks gestation of ] 10-14-2023 Episodic Residual codes; unclassified (1 source) Gestation period, 13 weeks; Translations: [13 weeks gestation of ] 11-09-2023 Episodic Residual codes; unclassified (2 sources) Gestation period, 16 weeks; Translations: [16 weeks gestation of ] 11-27-2023 Episodic Residual codes; unclassified (2 sources) Gestation period, 19 weeks; Translations: [19 weeks gestation of ] 12-21-2023 Episodic Residual codes; unclassified (1 source) Gestation period, 22 weeks; Translations: [22 weeks gestation of ] 01-07-2024 Episodic Residual codes; unclassified (1 source) Gestation period, 27 weeks; Translations: [27 weeks gestation of ] 02-15-2024 Episodic Spondylosis; intervertebral disc disorders; other back problems (7 sources) Acute low back pain; Translations: [Acute right-sided low back pain without sciatica] Episodic Substance-related disorders (20 sources) Nicotine dependence; Translations: [Nicotine dependence, cigarettes, uncomplicated] Onset: 03-11-2023 03-11-2023 Chronic Unclassified (20 sources) [facility] Education - COMMON Onset: 09-16-2023 09-16-2023 Unclassified (20 sources) Education - [place] Onset: 09-16-2023 09-16-2023 Unclassified (1 source) NO SHOW 10-25-2024 Unclassified (1 source) F/U 6 Month Onset: 02-21-2025 Past or Other Problems Problem Classification Problem Date Documented Da te Episodic/Chronic Disorders of lipid metabolism (20 sources) Mixed hyperlipidemia; Translations: [Mixed hyperlipidemia] Resolved: 03-11-2023 10-02-2020 Chronic Other circulatory disease (20 sources) H/O: atrial fibrillation; Translations: [Personal history of other diseases of the circulatory system] Onset: 10-02-2020 10-02-2020 Episodic Other complications of (20 sources) High risk ; Translations: [Supervision of high risk , unspecified, first trimester] Onset: 03-11-2023 03-11-2023 Episodic Other complications of (20 sources) Nausea and vomiting; Translations: [Vomiting of , unspecified] Onset: 03-11-2023 03-11-2023 Episodic Other complications of (20 sources) Multigravida of advanced maternal age; Translations: [Supervision of elderly multigravida, first trimester] Onset: 03-11-2023 Resolved: 03-31-2024 03-11-2023 Episodic Other complications of (20 sources) History of gestational diabetes mellitus; Translations: [Supervision of with other poor reproductive or obstetric history, unspecified trimester] Onset: 03-11-2023 Resolved: 10-14-2023 03-11-2023 Episodic Other complications of (20 sources) Asthma; Translations: [Diseases of the respiratory system complicating , unspecified trimester] Onset: 09-16-2023 09-16-2023 Episodic Other complications of (20 sources) Maternal tobacco use; Translations: [Smoking (tobacco) complicating , first trimester] Onset: 09-16-2023 Resolved: 10-14-2023 09-16-2023 Episodic Other complications of (20 sources) Diseases of the digestive system complicating , first trimester; Translations: [Other current conditions classifiable elsewhere of mother, antepartum condition or complication] Onset: 09-16-2023 Resolved: 10-30-2023 09-16-2023 Episodic Other complications of (1 source) Supervision of elderly multigravida, third trimester; Translations: [AMA (advanced maternal age) multigravida 35+, third trimester] Onset: 04-13-2023 Episodic Other complications of (20 sources) Heartburn; Translations: [Other specified related conditions, second trimester] Onset: 02-15-2024 02-15-2024 Episodic Other complications of (1 source) Diseases of the respiratory system complicating , unspecified trimester; Translations: [Asthma during (HCC)] Onset: 10-30-2023 Episodic Other female genital disorders (20 sources) Cervical incompetence; Translations: [Incompetence of cervix uteri] Onset: 10-30-2023 10-30-2023 Episodic Other gastrointestinal disorders (20 sources) H/O: abdominal hernia; Translations: [Personal history of other diseases of the digestive system] Onset: 10-02-2020 10-02-2020 Episodic Other hematologic conditions (20 sources) Abnormal presence of alpha-fetoprotein; Translations: [Abnormality of alphafetoprotein] Onset: 04-15-2023 Resolved: 10-14-2023 04-15-2023 Episodic Other infections; including parasitic (20 sources) H/O: infectious disease; Translations: [Personal history of other infectious and parasitic diseases] Onset: 03-11-2023 03-11-2023 Episodic Other lower respiratory disease (20 sources) H/O: asthma; Translations: [Personal history of other diseases of the respiratory system] Onset: 10-02-2020 Resolved: 10-14-2023 10-02-2020 Episodic Other and delivery including normal (20 sources) with uncertain dates; Translations: [Encounter for supervision of normal , unspecified, first trimester] Onset: 09-16-2023 Resolved: 10-14-2023 09-16-2023 Episodic Other screening for suspected conditions (not mental disorders or infectious disease) (20 sources) Cancer cervix screening status; Translations: [Encounter for screening for malignant neoplasm of cervix] Onset: 03-11-2023 Episodic Polyhydramnios and other problems of amniotic cavity (20 sources) premature rupture of membranes ; Translations: [ premature rupture of membranes, unspecified as to length of time between rupture and onset of labor, unspecified trimester] Onset: 04-12-2023 04-13-2023 Episodic Residual codes; unclassified (20 sources) Gestation period, 11 weeks; Translations: [11 weeks gestation of ] Onset: 03-11-2023 Resolved: 04-12-2023 03-11-2023 Episodic Residual codes; unclassified (20 sources) Gestation period, 12 weeks; Translations: [12 weeks gestation of ] Onset: 10-30-2023 03-20-2023 Episodic Residual codes; unclassified (20 sources) History of delivery of macrosomal infant; Translations: [Personal history of other complications of , childbirth and the puerperium] Onset: 09-16-2023 09-16-2023 Episodic Residual codes; unclassified (20 sources) History of premature rupture of membranes; Translations: [Personal history of other complications of , childbirth and the puerperium] Onset: 04-12-2023 09-16-2023 Episodic Results Test Name Value Interpretation Reference Range [facility] Emergency Department Summary on 03-27-2025 Emergency Department Summary [facility] Medical Records Department [address] [place] [address] Emergency Department Summary 03/27/25 MR#: [id number] Acct: [id number] Name: CHARMAINE AVILA Rep #: [id number] : 1990 35 From: Ida Baltazar MD PCP: Dr. Junior Jeong MD Status:REG ER Location: ED HPI History of Present Illness Chief Complaint: Eye Problem Narrative Narrative: Patient is a 35-year-old female presenting to the emergency department for swelling underneath her right eye. Patient states it has been like this since Thursday. She denies any purulent or watery drainage from the eye. Denies any redness surrounding the eye or of the eye itself. Denies any visual changes including double vision or blurry vision. She denies any pain in her eye. Denies headache. Denies any viral-like symptoms. Denies any fever or chills. Feels well otherwise. She does not wear contacts. [facility] Medical History Diabetes mellitus, type 2 Home Medications ???Medication ???Instructions ???Recorded ???Last Taken ???Type cephalexin 500 mg capsule 500 mg PO Q12 #10 CAPSULES 4 Unknown Rx Allergy/AdvReac Type Severity Reaction Status Date / Time codeine Allergy JITTERY Verified 03/27/25 09:12 acetaminophen (From Percocet) AdvReac Vomiting Verified 03/27/25 09:12 nalbuphine (From Nubain) AdvReac Vomiting Verified 03/27/25 09:12 oxycodone (From Percocet) AdvReac Vomiting Verified 03/27/25 09:12 Social History Smoking Status: Current every day smoker tobacco type: cigarettes ROS ROS ED ROS Narrative See HPI EXAM Physical Exam Narrative Exam Narrative: Vital signs: Reviewed General: Alert and oriented x 3. No acute distress HEENT: Head is normocephalic and atraumatic. Midface is nontender. Pupils equal round and reactive. There is no conjunctival injection. No pain with extraocular movements. No drainage noted from the eye. No crusting noted around the eyelid. There is very mild swelling only to the right lower eyelid. There is no erythema, warmth, fluctuance periorbitally. no drainage expressed on palpation of the nasolacrimal duct. No stye or chalazion seen along the lid margin. No proptosis. The nares are patent. Oropharynx and throat exams normal. Neck: Supple without lymphadenopathy nontender Cardiovascular: Regular rate and rhythm, no murmurs. No rubs or gallops. Normal S1 and S2 Respiratory: Clear to auscultation bilaterally. No wheezes, rales, rhonchi Abdominal: Soft and nontender. Normal bowel sounds. No guarding or rebound. Nonsurgical abdomen Extremities: No tenderness. No bruising. Normal range of motion. Normal sensation. Skin: No rash or redness. Neurological: Cranial nerves II through XII are grossly intact. Normal strength and sensation. Normal cerebellar function The rest of the physical exam is unremarkable Const Vital Signs: 03/27/25 09:12 Temperature 98.2 F Temperature Source Oral Pulse Rate 105 H Respiratory Rate 16 Blood Pressure 116/77 Blood Pressure Mean 90 Pulse Ox 98 Oxygen Delivery Method Room Air MDM MDM MDM Narrative Medical decision making narrative: Patient is a 35-year-old female presenting to the emergency department for mild swelling under her right eye. Patient was seen and examined. Vitals are stable. Patient resting in bed comfortably no acute distress. There is no stye or chalazion seen on exam. There is no discharge seen to be concerned about a bacterial conjunctivitis. There is no conjunctival injection of the eye. She has no visual changes or eye pain to be concerned about a acute closure angle glaucoma, iritis, keratitis or foreign body. Please see nursing note for visual acuity. Patient has no pain with extraocular movements and has no surrounding periorbital erythema to be concerned about a periorbital cellulitis or postseptal cellulitis. With a very mild swelling located only under the right eye with no surrounding skin changes I recommended antihistamines to the patient. Patient was given a dose of Claritin here. I recommended that she watch for any redness, worsening swelling, visual changes or drainage from the eye that would warrant return to the emergency department and possible antibiotics. Patient is agreeable with the plan. Patient discharged from the Emergency Department. I do not feel that the patient's evaluation reveals any acute reason for admission at this time. I instructed them to either follow-up with their primary care physician or promptly return to the Emergency Department for reevaluation should symptoms worsen or new symptoms develop. I explained what symptoms would indicate the need to return to the emergency department. Shared decision making was used. The patient v (more content not included)... Normal [facility] 03-01-2025 [facility] Telephone (4CQ) ---- CHARMAINE AVILA ([id number]) 1990 F Date Time Provider Department 03/01/25 ADEEL RAMIREZ 4CQ During your visit today, we recorded the following information about you: Ivon Fermin 03/01/2025 8:51 AM Signed Charmaine is calling Adeel Ramirez DO today with concern regarding she received a missed call from office this morning. She also uploaded her readings for provider viewing Please advise Patient has been identified by name and birthdate. Duration of symptoms: N/A Person calling: self Call patient at: on cell [phone] (home) [phone] (cell) Was an appointment scheduled: No Closing statement: Patient is active on [employer] and would like the response sent to their account. Hayley John MA 03/01/2025 9:31 AM Signed Spoke to patient and confirmed appointment. Printed Dexcom report and placed on providers desk for 2pm visit. Allergies As of Date: 03/01/2025 Noted Allergy Reaction CODEINE 10/02/2020 14 - Other: See Comments JARDIANCE (EMPAGLIFLOZIN) 08/26/2021 5 - Intolerance Comments: Body aches, headaches earache NALBUPHINE 10/02/2020 11 - Vomiting OXYCODONE 03/22/2019 11 - Vomiting PERCOCET (OXYCODONE-ACETAMIN OPHEN)10/02/2020 11 - Vomiting METFORMIN 03/11/2023 6 - Diarrhea 8 - GI Upset Comments: Rapid release only-pt states OK to take ER Date Reviewed: 02/21/2025 Reviewed by: Luzmaria Sheikh LPN - Fully Assessed Prescriptions as of 03/01/2025 - omeprazole (PRILOSEC) 40 mg capsule Take 1 capsule by mouth once daily. - lidocaine (LIDODERM) 5 % Apply 1 Patch as directed every 24 hours. Remove old patch prior to placing new patch. Location: low back - albuterol HFA (PROVENTIL HFA, VENTOLIN HFA) 90 mcg/actuation inhaler Inhale 2 Puffs as instructed every 4 hours as needed for wheezing/shortness of breath. - loratadine (CLARITIN) 10 mg tablet Take 1 tablet by mouth once daily as needed. - sertraline (ZOLOFT) 100 mg tablet Take 1.5 tablets by mouth every afternoon. - Blood-Glucose Sensor (DEXCOM G7 SENSOR) stephanie Insert 1 sensor on the back of arm. Replace every 10 days as directed. - metFORMIN ER (GLUCOPHAGE XR) 500 mg 24 hr tablet Take 2 tablets by mouth two times a day with meals. - blood sugar diagnostic (ONETOUCH VERIO TEST STRIPS) test strip Use as instructed 4 times daily - lancets (ONETOUCH DELICA LANCETS) 30 gauge Use as instructed 4 times daily - Blood-Glucose Meter (BLOOD GLUCOSE MONITORING) monitoring kit One touch. Use as instructed. Please use voucher Bin [id number]; N [place]; Group [id number]; ID [id number] - Insulin [place], Disposable, (PEN NEEDLE) 32 gauge x 5/32" Use to inject insulin up to 4 times per day. - ondansetron orally disintegrating (ZOFRAN ODT) 4 mg disintegrating tablet Take 1 tablet by mouth every 6 hours as needed for nausea/vomiting. - Blood-Glucose Meter,Continuous (DEXCOM G7 HOME THEATRE TECHNICIAN) [facility] Use to test blood sugar as directed. - alcohol swabs (ALCOHOL PADS) Apply 1 application to affected area once daily. - blood sugar diagnostic (BLOOD GLUCOSE TEST) test strip Test blood sugar(s) 3 times daily. Dx: Type 2 DM - Controlled E11.9 Insulin: Yes - fluticasone (FLONASE) 50 mcg/actuation nasal spray Use 1 [place] in each nostril once daily. As needed Problem List As Of Date 03/01/2025 Noted Resolved Anxiety state [F41.1] 04/12/2023 Mixed hyperlipidemia [E78.2] 03/11/2023 History of abdominal hernia [Z87.19] 10/02/2020 History of atrial fibrillation [Z86.79] 10/02/2020 History of asthma [Z87.09] 10/02/2020 10/14/2023 Anxiety and depression [F41.9, F32.A] 07/01/2022 Diagnosed: 03/11/2023 AMA (advanced maternal age) multigravida 35+, s*03/11/2023 03/31/2024 History of labor, current , fi*03/11/2023 Obesity affecting in first trimester *03/11/2023 History of gestational diabetes in prior pregna*03/11/2023 10/14/2023 History of trichomoniasis [Z86.19] 03/11/2023 PCOS (polycystic ovarian syndrome) [E28.2] 03/11/2023 11 weeks gestation of [Z3A.11] 03/11/2023 04/12/2023 Cervical cancer screening [Z12.4] 03/11/2023 History of premature rupture of membran*04/12/2023 premature rupture of membranes (PPROM) *04/12/2023 Hx of delivery, currently , sec*04/12/2023 Abnormal AFP3 test [R77.2] 04/15/2023 10/14/2023 Pre-existing type 2 diabetes mellitus during pr*09/16/2023 History of delivery of macrosomal infant [Z87.5*09/16/2023 Asthma during [O99.519, J45.909] 09/16/2023 Tobacco use disorder complicating , ch*09/16/2023 Constipation during in first trimeste*09/16/2023 10/30/2023 with uncertain dates in first trimest*09/16/2023 10/14/2023 Bacterial vaginitis [N76.0, B96.89] 10/15/2023 Incompetent cervix [N88.3] 10/30/2023 Heartburn during in second trimester *02/15/2024 Encounter (more content not included)... Normal [facility] CT BRAIN W/O CONTRASTon 10-0 CT BRAIN W/O CONTRAST [address] ? [place] [address] ? Patient: CHARMAINE AVILA Phone#: : 1990 Age: 35 Gender: F Pt. Type: ER Account: [id number] Location: [facility] Ordering: DR. MIN FARAH Exam Date: 02/27/2025/4:16 Family Phys: NEERU Charge Code: 380841 Physician: [facility] Order #: [id number] Dose#: [id number] PROCEDURE: CT BRAIN WITHOUT CONTRAST COMPARISON: None. INDICATIONS: Headache. TECHNIQUE: CT images were obtained without contrast material. All CT scans at this facility use dose modulation, iterative reconstruction, and/or weight based dosing when appropriate to reduce radiation dose to as low as reasonably achievable. IV CONTRAST: No IV contrast used,0ml TOTAL DOSE: 52.3 CTDIvol(mGy) FINDINGS: CEREBRUM: No edema, hemorrhage, mass, or inappropriate atrophy. CEREBELLUM: No edema, hemorrhage, mass, or inappropriate atrophy. BRAINSTEM: No edema, hemorrhage, mass, or inappropriate atrophy. CSF SPACES: Ventricles, cisterns, and sulci are appropriate for age. No hydrocephalus, subarachnoid hemorrhage, or mass. SKULL: No mass or other significant visible lesion. SINUSES: Mucosal thickening in the right maxillary sinuses. ORBITS: Limited views are unremarkable. OTHER: Negative. CONCLUSION: 1. No appreciable acute intracranial abnormality. 2. 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 [address] [id number] 02/27/2025 Patient: CHARMAINE AVILA Sex: Female : 1990 Age: 35y MEASUREMENTS: Wt: 98.9 kg, Ht/Esequiel: 69.0 in, BMI: 32.19 ALLERGIES: Nubain, Percocet, Trulicity, codeine Medication Ordered Medication Administration Date/Time Ondansetron 03:57 10 Ondansetron (Zofran) ODT PO 4 mg given. Given (Zofran) ODT PO Allergies verified and confirmed 5 rights. Information 03:57 02/27/2025 4 mg (NOW x1) reviewed with patient including reason for taking this El Milena, R.N. medication. Verbalizes understanding. - 03:57 El Milena, Scanned R.N. HYDROmorphon 04:02 10 HYDROmorphone (Dilaudid) IM 0.5 mg given. Given e (Dilaudid) IM Given in the left deltoid. Allergies verified and confirmed 5 04:02 02/27/2025 0.5 mg (NOW rights. Information reviewed with patient including reason El Milena, R.N. x1, HIGH ALERT for taking this medication. Verbalizes understanding. - Not Scanned MEDICATION) 04:02 El Milena, R.N. KetorOLAC 03:57 10 KetorOLAC (Toradol) IM 30 mg given. Given in Given (Toradol) IM 30 the right deltoid. Allergies verified and confirmed 5 rights. 03:57 02/27/2025 mg (NOW x1) Information reviewed with patient including reason for El Milena, R.N. taking this medication. Verbalizes understanding. - 04:01 Scanned El Milena, R.N. 1 of 1 Normal [facility] ED NURSES CLINICAL NOTEon ED NURSES CLINICAL NOTE Nurse Narrative - CHARMAINE AVILA, : 1990, , Nurse Clinical Narrative [address] [place] [address] [id number] 02/27/2025 02:54:00 Patient: CHARMAINE AVILA Sex: Female : 1990 Age: 35y Disposition: Discharge to Home Disposition Decision Time: 06:05 02/27/2025 Departure Time: 06:16 02/27/2025 TRIAGE Arrived by private vehicle, and from home. Historian: (patient). Primary physician (Manoj). Triage time: 02:58 02/27/2025. Acuity: LEVEL 3. Chief Complaint: HEADACHE and MIGRAINE HEADACHE. Alert. This started last night. The patient has had nausea. No vomiting or weakness. Not currently taking anticoagulation therapy. Treatment TAPPER HAND: Took ibuprofen. (800 mg at 0200). SEPSIS SCREEN: NEGATIVE. SIRS criteria negative. No possible sources of infection. -- 03:07 02/27/25 EDT Ally Eastman R.N. 03:01 02/27/25. BP: 134/102 (regular cuff) taken on right arm, while sitting. MAP: 113. HR: 94. Regular and normal rate. RR: 20. Regular and unlabored. Rate is normal. O2 saturation: 98% on room air. Temperature: 97.5 F (oral). Pain level now 10/10. Describes the pain as sharp and throbbing. Constant. (HUITRON, left eye). -- 03:02/27/25 EDT Ally Eastman R.N. Measurements: 1 of 4 Nurse Narrative - CHARMAINE AVILA, : 1990, , 03:07 02/27/25 Wt: 98.9 kg, Ht/Esequiel: 69.0 in, BMI: 32.19 -- 03:02/27/25 EDT Ally Eastman R.N. Medications: lidocaine 5 % topical patch -- 03:02/27/25 EDT Ally Eastman R.N. omeprazole 40 mg capsule,delayed release -- 03:02/27/25 DAVID Eastman R.N. fluconazole 150 mg tablet: Take 1 tablet (150 mg) by mouth every 3 days for 2 doses. -- 03:02/27/25 DAVID Eastman R.N. loratadine 10 mg tablet: Take 1 tablet by mouth once daily as needed. -- 03:02/27/25 DAVID Eastman R.N. albuterol sulfate HFA 90 mcg/actuation aerosol inhaler -- 03:02/27/25 DAVID Eastman R.N. methylprednisolone 4 mg tablets in a dose pack -- 03:02/27/25 DAVID Eastman R.N. [employer] Chamber-Large Mask -- 03:02/27/25 DAVID Eastman R.N. clotrimazole-betame thasone 1 %-0.05 % topical cream -- 03:02/27/25 DAVID Eastman R.N. Allergy Relief (loratadine) 10 mg tablet -- 03:02/27/25 DAVID Eastman R.N. Allergies: codeine -- 03:05 02/27/25 DAVID Eastman R.N. Trulicity -- 03:05 02/27/25 DAVID Eastman R.N. Nubain -- 03:05 02/27/25 DAVID Eastman R.N. Percocet -- 03:05 02/27/25 DAVID Eastman R.N. Problems: Asthma -- 03:05 02/27/25 DAVID Eastman R.N. Diabetes Mellitus Type 2 -- 03:05 02/27/25 DAVID Eastman R.N. Migraine Headache -- 03:05 02/27/25 DAVID Eastman R.N. Surgeries: -- 03:05 02/27/25 DAVID Eastman R.N. Cholecystectomy -- 03:05 02/27/25 DAVID Eastman R.N. Tubal Ligation -- 03:05 02/27/25 EDT Ally Rutt, R.N. Tonsillectomy -- 03:05 02/27/25 EDT Ally Eastman R.N. History 2 of 4 Nurse Narrative - CHARMAINE AVILA, : 1990[id number] 02:58 02/27/25. SOCIAL HX: Current every day light tobacco smoker (cigarette)- less than 1/2 a pack per day. No alcohol use or drug use. The patient has not traveled outside the [place] Infectious disease exposure: No infectious disease exposure. ABUSE ASSESSMENT: The patient answered "yes" to the question(s) "Do you feel safe in your home?" and no to the question(s) Are you afraid to go home?". SELF HARM ASSESSMENT: Self harm assessment was performed. The patient answered "no" to the question(s) "Have you recently felt down, depressed, or hopeless?" and "Do you have thoughts of harming or killing yourself?". FALL RISK ASSESSMENT: Fall risk assessment completed. No risk factors identified. -- 03:07 02/27/25 EDT Ally Eastman R.N. Interventions 02:58 02/27/25. Identification band and allergy band on patient. Advanced care plan discussed with patient. Patient does not have advanced directive. -- 03:07 02/27/25 AILYNT Ally Eastman R.N. PHYSICAL ASSESSMENT 03:44 02/27/25. Ambulatory to room. ( tension headache, started yesterday, not helped with ibuprofen). GENERAL / NEURO / PSYCH: Alert. Oriented X 4. Appears in no acute distress. HEENT: Pupils equal, round and reactive to light. -- 03:44 02/27/25 EDT El Abbott R.N. NURSING PROGRESS NOTES 03:09 02/27/25. Two patient identifiers checked. Call light placed in reach. Side rails up x 2. Bed placed in lowest position. Brakes of bed on. -- 03:10 02/27/25 DAVID Eastman R.N. 03:10 02/27/25. Rounding: Pain: assessed pain level. Set expectations: advised patient of rounding protocol timing. -- 03:10 02/27/25 DAVID Eastman R.N. 03:57 02/27/25. Ondansetron (Zofran) ODT PO 4 mg given. Allergies verified and confirmed 5 rights. Information reviewed with patient including reason for taking this medication. Verbalizes understanding. -- 03:57 (more content not included)... Normal [facility] ED ORDER SHEET (CPOE ONLY)on 02-27-2025 ED ORDER SHEET (CPOE ONLY) Order Sheet - CHARMAINE AVILA, : 1990, , Order Sheet [address] [place] [address] [id number] 02/27/2025 Patient: CHARMAINE AVILA Sex: Female : 1990 Age: 35y MEASUREMENTS: Wt: 98.9 kg, Ht/Esequiel: 69.0 in, BMI: 32.19 ALLERGIES: Nubain, Percocet, Trulicity, codeine MEDICATION/IV/DRIP/ FLUID ORDERS Acknowledge Order Description Priority Entered d Completed Ondansetron (Zofran) ODT 03:48 02/27/2025 03:55 03:57 PO4 mg (NOW x1) Min Farah, 02/27/2025 02/27/2025 Rudy.El Koch, Altagracia.N. R.N. HYDROmorphone 03:48 02/27/2025 03:55 04:02 (Dilaudid) IM0.5 mg (NOW Min Farah, 02/27/2025 02/27/2025 x1, HIGH ALERT MEDICATION) Rudy.OEl Brock, R.N. R.N. Reason for ordering with Benefits outweigh risks --03:48 02/27/2025 Min alerts: Shane Farah KetorOLAC (Toradol) IM30 03:48 02/27/2025 03:55 04:01 mg (NOW x1) Min Farah, 02/27/2025 02/27/2025 Rudy.El Koch, R.N. R.N. Reason for ordering with Benefits outweigh risks --03:48 02/27/2025 Min alerts: Shane Farah 1 of 2 Order Sheet - CHARMAINE AVILA, : 1990, , LAB ORDERS Acknowledge Order Description Priority Entered d Collected Completed DIAGNOSTIC STUDY ORDERS Acknowledge Order Description Priority Entered d Completed CT Brain wo Cont Stat Stat 03:48 02/27/2025 03:55 04:06 Min Farah, 02/27/2025 02/27/2025 Shane Abbott, El Abbott, R.N. R.NAlberto Order 03:47 Status: Not . Min Farah, Comments: 02/27/2025: Rudy.Rohit Reason for Study: Headache STAFF ORDERS Acknowledge Order Description Priority Entered d Collected Completed [Electronically signed by Min Farah D.O. (02/27/2025 09:34 EDT)] 2 of 2 Normal [facility] ED PHYSICIAN CLINICAL REPORT on 02-27-2025 ED PHYSICIAN CLINICAL REPORT Narrative - CHARMAINE AVILA, : 1990, , Physician Clinical Narrative [address] [address] [id number] 02/27/2025 02:54:00 Patient: CHARMAINE AVILA Sex: Female : 1990 Age: 35y Disposition: Discharge to Home Disposition Decision Time: 06:05 02/27/2025 Departure Time: 06:16 02/27/2025 Measurements Wt: 98.9 kg, Ht/Esequiel: 69.0 in, BMI: 32.19 Initial Vital Sign Measured Alli Time BP MAP HR RR O2Sat ETCO2 Temp n GCS RTS 03:01 134/102 113 94 20 98% RA 97.5 F 10 02/27/2025 Time Seen: correction to prior entry - 03:19 02/27/2025. Arrived- By private vehicle. Historian- patient. Independent historian- family. HISTORY OF PRESENT ILLNESS Chief Complaint: HEADACHE. Is still present. This started yesterday ibuprofen homt helping, usually does. No preceding symptoms, blurred vision, photophobia, associated nausea or numbness. No weakness. Similar symptoms previously. Patient has had similar symptoms several times. REVIEW OF SYSTEMS CVS: No chest pain. NEUROLOGICAL: No head injury. : No pain with urination. RESPIRATORY: No carbon monoxide exposure, difficulty breathing or cough. THROAT: No sore throat. EARS: No ear pain. NOSE: No 1 of 4 CHARMAINE Mittal, : 1990, , sinus pressure. CONSTITUTIONAL: No fever or muscle aches. GI: No abdominal pain or diarrhea. SKIN: No tick bite or skin rash. Status: Not . PAST HISTORY long hx of headaches, percocet makes her aggitated, ibuprofen usually works but did not tonight, Dilaudid helps. Asthma Diabetes Mellitus Type 2 Migraine Headache Surgeries: Cholecystectomy Tonsillectomy Tubal Ligation Medications: albuterol sulfate HFA 90 mcg/actuation aerosol inhaler Allergy Relief (loratadine) 10 mg tablet [employer] Chamber-Large Mask clotrimazole-betame thasone 1 %-0.05 % topical cream fluconazole 150 mg tablet: Take 1 tablet (150 mg) by mouth every 3 days for 2 doses. lidocaine 5 % topical patch loratadine 10 mg tablet: Take 1 tablet by mouth once daily as needed. methylprednisolone 4 mg tablets in a dose pack omeprazole 40 mg capsule,delayed release Allergies: codeine Nubain Percocet Trulicity ADDITIONAL NOTES The nursing notes have been reviewed. 2 of 4 CHARMAINE Mittal, : 1990, , PHYSICAL EXAM Vital Signs: Have been reviewed. Appearance: Alert. Appears to be in pain. ( mild). The patient is cooperative. The patient is alert, oriented, well hydrated, well nourished and well developed. The patient is well dressed, shows no apparent trauma and has normal color. Appearance is consistent with stated age. Patient in moderate distress. (reproducible discomfort to the left temporal area). Eyes: Eyes normal inspection. ENT: Ears normal. Nose normal. Neck: Normal inspection. Neck supple. CVS: Normal heart rate. Heart sounds normal. Pulses normal. Respiratory: No respiratory distress. Painless inspiration. Breath sounds normal. Abdomen: Nontender. No organomegaly. Obese. Back: Normal inspection. Skin: Skin warm. Normal skin color. No rash. Extremities: Extremities exhibit normal ROM. No lower extremity edema. Neuro: Oriented X 3. Alert. Mood/affect normal. Speech normal. No cerebellar findings. No motor deficit. No sensory deficit. Reflexes normal. LABS, X-RAYS, AND EKG CT Head: No acute disease. PROGRESS AND PROCEDURES MEDICAL DECISION MAKING: (Seen at arrival, known to me from prior visits to the ER, has had TL, typical for her, she states except more intense, will be medicated, check ct, if negative, home. 0550: Feeling better, no more huitron, ready to go; Advised against breat feeling for 6 hours.). Disposition: Condition: good. Discharged in good and improved condition. Discharge decision based on the following: patient's condition is stable; patient's exam is stable. CLINICAL IMPRESSION Episodic tension-type headache. 3 of 4 Narrative - CHARMAINE AVILA, : 1990, , DISCHARGE INSTRUCTIONS Understanding of the discharge instructions verbalized by patient and family. Follow-up with: [facility], Phone: [phone], [address] [address]. (home avoid breast feeding for the next 4-6 hours (allow Dilaudid to get out of your system) Call Dr Conrad for a recheck apt as needed you are welcomed to return anytime. william farah, er physician, rosa amin). (Electronically signed by Min Farah D.O. 02/27/25 09:34:27 EDT) Disposition History: Disposition Decision Time: 06:05 02/27/2025. Disposition changed to Discharge. -- 06:05 02/27/2025 Min Roberts (more content not included)... Normal [facility] ED SUPER BILLon 02-27-2025 ED SUPER BILL [facility] - CHARMAINE AVILA, : 1990, , [address] [address] [id number] 02/27/2025 Patient: CHARMAINE AVILA Sex: Female : 1990 Age: 35y Item Facility Profession Category Description Code al Code Quantity Fee Total Nurse/E/M EMERGENCY 645076 1 $0.00 $0.00 DEPARTMEN T VISIT HIGH/URGEN T SEVERITY (03853-52) Nurse/IV/IM/ IM/SQ 693095 2 $0.00 $0.00 Infusions (07258) Grand Total $0.00 Providers Min Farah D.O. Chief Complaint HEADACHE. Principal Diagnosis Episodic tension-type headache. 1 of 2 [facility] CHARMAINE AVILA, : 1990, , ICD-10 Codes G44.219: Episodic tension-type headache, not intractable 2 of 2 [facility] ED VISIT SUMMARYon ED VISIT SUMMARY Visit Elsa - CHARMAINE AVILA, : 1990, , Visit [address] [address] [id number] 02/27/2025 Patient: CHARMAINE AVILA Sex: Female : 1990 Age: 35y 02/27/2025 09:34 AM EDT ED Arrival:02:54 02/27/2025 Status:not Recent Travel:no EDT Language:eng Adv Directive:No Isolation Status: Infectious Disease Ethnicity:N Fall Risk:no risk Exposure:no Measurements:5'9" / 175.3 Self-Harm Status:risk Sepsis Screen:negative cm 218.0 lb / 98.9 kg Chief Complaint:HEADACHE, MIGRAINE HEADACHE, (800 mg at 0200), and ([place]) ALLERGIES codeine Nubain Percocet Trulicity HOME MEDICATIONS 1 of 3 Visit Elsa - CHARMAINE AVILA, : 1990, , albuterol sulfate HFA 90 mcg/actuation aerosol inhaler Allergy Relief (loratadine) 10 mg tablet [employer] Chamber-Large Mask clotrimazole-betame thasone 1 %-0.05 % topical cream fluconazole 150 mg tablet: Take 1 tablet (150 mg) by mouth every 3 days for 2 doses. lidocaine 5 % topical patch loratadine 10 mg tablet: Take 1 tablet by mouth once daily as needed. methylprednisolone 4 mg tablets in a dose pack omeprazole 40 mg capsule,delayed release PAST MEDICAL HISTORY / PROBLEMS Asthma Diabetes Mellitus Type 2 Migraine Headache PAST SURGICAL HISTORY Cholecystectomy Tonsillectomy Tubal Ligation SOCIAL HISTORY Smoking status: Yes Alcohol use: No Drug use: No ED COURSE MEDICATIONS GIVEN IN EMERGENCY DEPARTMENT 03:57 02/27/25 Ondansetron (Zofran) ODT PO 4 mg 03:57 02/27/25 KetorOLAC (Toradol) IM 30 mg 04:02 02/27/25 HYDROmorphone (Dilaudid) IM 0.5 mg IV SITE INFORMATION INTAKE 2 of 3 Visit Overview - CHARMAINE AVILA, : 1990, , OUTPUT REASSESMENT (most recent) 03:44 02/27/25. Ambulatory to room. ( tension headache, started yesterday, not helped with ibuprofen). GENERAL / NEURO / PSYCH: Alert. Oriented X 4. Appears in no acute distress. HEENT: Pupils equal, round and reactive to light. VITAL SIGNS First Vitals Last Vitals Temp 03:01 02/27/25 97.5 F Temp 06:06 02/27/25 BP 03:01 02/27/25 134/102 BP 06:06 02/27/25 128/76 HR 03:01 02/27/25 94 HR 06:06 02/27/25 72 RR 03:01 02/27/25 20 RR 06:06 02/27/25 18 O2 Sat 03:01 02/27/25 98% RA O2 Sat 06:06 02/27/25 98% Pain 03:01 02/27/25 10 Pain 06:06 02/27/25 2 ETCO2 03:01 02/27/25 ETCO2 06:06 02/27/25 GCS 03:01 02/27/25 GCS 06:06 02/27/25 RTS 03:01 02/27/25 RTS 06:06 02/27/25 PROCEDURES NURSING INTERVENTIONS LABS / STUDIES LABS / STUDIES ORDERED CT Brain wo Cont CLINICAL IMPRESSION EPISODIC TENSION-TYPE HEADACHE 3 of 3 Normal [facility] ED VITALS FLOW SHEETon 02-27 ED VITALS FLOW SHEET Vitals - CHARMAINE AVILA, : 1990, , Vital Sign Flow Sheet [facility] [address] [place] [address] [id number] 02/27/2025 Patient: CHARMAINE AVILA Sex: Female : 1990 Age: 35y Measurements Wt: 98.9 kg, Ht/Esequiel: 69.0 in, BMI: 32.19 Measured Alli Time BP MAP HR RR O2Sat ETCO2 Temp n GCS RTS 06:06 128/76 93 72 18 98% 2 02/27/2025 03:01 134/102 113 94 20 98% RA 97.5 F 10 02/27/2025 1 of 1 Normal [facility] CNOVon 02-21-2025 CNOV Office Visit (INTMWS) ---- CHARMAINE AVILA ([id number]) 1990 F Date Time Provider Department 02/21/25 10:20 AM JUNIOR JEONG INTMWS During your visit today, we recorded the following information about you: Pulse Respiration Blood pressure Weight 86/minute 16/minute 114/80 98.9 kg Junior Jeong MD 03/31/2025 2:22 AM Signed lwbs Referring Provider: FERCHO PEREZ [[id number]] Allergies As of Date: 02/21/2025 Noted Allergy Reaction CODEINE 10/02/2020 14 - Other: See Comments JARDIANCE (EMPAGLIFLOZIN) 08/26/2021 5 - Intolerance Comments: Body aches, headaches earache NALBUPHINE 10/02/2020 11 - Vomiting OXYCODONE 03/22/2019 11 - Vomiting PERCOCET (OXYCODONE-ACETAMIN OPHEN)10/02/2020 11 - Vomiting METFORMIN 03/11/2023 6 - Diarrhea 8 - GI Upset Comments: Rapid release only-pt states OK to take ER Date Reviewed: 02/21/2025 Reviewed by: Luzmaria Sheikh LPN - Fully Assessed Reason for Visit: F/U 6 Month [444] Patient Left Without Being Seen [2006] Primary Visit Diagnosis:Patient left without being seen [Z53.21] Prescriptions as of 03/31/2025 - insulin glargine (LANTUS SOLOSTAR U-100 INSULIN) 100 unit/mL (3 mL) Inject 10 Units subcutaneously daily at bedtime. - Blood-Glucose Sensor ([employer] G7 SENSOR) stephanie Insert 1 sensor on the back of arm. Replace every 10 days as directed. - metFORMIN ER (GLUCOPHAGE XR) 500 mg 24 hr tablet Take 2 tablets by mouth two times a day with meals. - Insulin [place], Disposable, (PEN NEEDLE) 32 gauge x 5/32" Use to inject insulin up to 4 times per day. - insulin lispro (HUMALOG KWIKPEN) 100 unit/mL 5 units prior to meals. - insulin NPH (HUMULIN N NPH INSULIN KWIKPEN) 100 unit/mL (3 mL) injection pen 10 units at bedtime - omeprazole (PRILOSEC) 40 mg capsule Take 1 capsule by mouth once daily. - lidocaine (LIDODERM) 5 % Apply 1 Patch as directed every 24 hours. Remove old patch prior to placing new patch. Location: low back - albuterol HFA (PROVENTIL HFA, VENTOLIN HFA) 90 mcg/actuation inhaler Inhale 2 Puffs as instructed every 4 hours as needed for wheezing/shortness of breath. - loratadine (CLARITIN) 10 mg tablet Take 1 tablet by mouth once daily as needed. - sertraline (ZOLOFT) 100 mg tablet Take 1.5 tablets by mouth every afternoon. - blood sugar diagnostic ([employer] VERIO TEST STRIPS) test strip Use as instructed 4 times daily - lancets (ONETOUCH DELICA LANCETS) 30 gauge Use as instructed 4 times daily - Blood-Glucose Meter (BLOOD GLUCOSE MONITORING) monitoring kit One touch. Use as instructed. Please use voucher Bin [id number]; PCN [facility]; Group [id number]; ID NOCHARGEWON - ondansetron orally disintegrating (ZOFRAN ODT) 4 mg disintegrating tablet Take 1 tablet by mouth every 6 hours as needed for nausea/vomiting. - Blood-Glucose Meter,Continuous ([employer] G7 HOME THEATRE TECHNICIAN) [facility] Use to test blood sugar as directed. - alcohol swabs (ALCOHOL PADS) Apply 1 application to affected area once daily. - blood sugar diagnostic (BLOOD GLUCOSE TEST) test strip Test blood sugar(s) 3 times daily. Dx: Type 2 DM - Controlled E11.9 Insulin: Yes - fluticasone (FLONASE) 50 mcg/actuation nasal spray Use 1 [place] in each nostril once daily. As needed Problem List As Of Date 02/21/2025 Noted Resolved Anxiety state [F41.1] 04/12/2023 Mixed hyperlipidemia [E78.2] 03/11/2023 History of abdominal hernia [Z87.19] 10/02/2020 History of atrial fibrillation [Z86.79] 10/02/2020 History of asthma [Z87.09] 10/02/2020 10/14/2023 Anxiety and depression [F41.9, F32.A] 07/01/2022 Diagnosed: 03/11/2023 AMA (advanced maternal age) multigravida 35+, s*03/11/2023 03/31/2024 History of labor, current , fi*03/11/2023 Obesity affecting in first trimester *03/11/2023 History of gestational diabetes in prior pregna*03/11/2023 10/14/2023 History of trichomoniasis [Z86.19] 03/11/2023 PCOS (polycystic ovarian syndrome) [E28.2] 03/11/2023 11 weeks gestation of [Z3A.11] 03/11/2023 04/12/2023 Cervical cancer screening [Z12.4] 03/11/2023 History of premature rupture of membran*04/12/2023 premature rupture of membranes (PPROM) *04/12/2023 Hx of delivery, currently , sec*04/12/2023 Abnormal AFP3 test [R77.2] 04/15/2023 10/14/2023 Pre-existing type 2 diabetes mellitus during pr*09/16/2023 History of delivery of macrosomal infant [Z87.5*09/16/2023 Asthma during [O99.519, J45.909] 09/16/2023 Tobacco use disorder complicating , ch*09/16/2023 Constipation during in first trimeste*09/16/2023 10/30/2023 with uncertain dates in first trimest*09/16/2023 10/14/2023 Bacterial vaginitis [N76.0, B96.89] 10/15/2023 Incompetent cervix [N88.3] 10/30/2023 Heartburn during in second trimester *02/15/2024 Encounter Status:Closed by JUNIOR JEONG on (more content not included)... Normal [facility] ALBUMIN/CREATININE RATIO, UR INEon 09-20-2024 Albumin DL <= 20 mg/L (U) [Mass/Vol] 29.8 mg/L Normal [facility] Comment on above: Order Comment: Speci men Type: URINE SPECIMENOrdering Facility: [facility] Address: [address] [place] [address] Performed By: #### U ACR ####[facility] LABCLIA [id number] [place] [address] [place] Albumin/Creatinine (U) [Mass ratio] 34 mg/g High <30 [facility] Comment on above: Order Comment: Speci men Type: URINE SPECIMENOrdering Facility: [facility] Address: [address] [place] [address] Result Comment: Adul t Male and Female Nephrotic Criteria: <30 mg/g is considered normal to mildly increased 30-300 mg/g is considered moderately increased >300 mg/g is considered severely increased KDIGO. (2013). KDIGO 2012 Clinical Practice Guideline for the Evaluation and Management of Chronic Kidney Disease. Official Journal of the International Society of Nephrology, 3(1), 1-150. Performed By: #### U ACR ####[facility] LABCLIA [id number] [place] [id number] [place] Creatinine (U) [Mass/Vol] 87.0 mg/dL Normal 20.0-300.0 [facility] Comment on above: Order Comment: Speci men Type: URINE SPECIMENOrdering Facility: [facility] Address: [address] [place] [address] Performed By: #### U ACR ####[facility] LABCLIA [id number] [place] [address] [place] CBC panel Auto (Bld)on 09-20 Erythrocyte distribution width (RBC) [Ratio] 13.1 % Normal 11.5-15.0 [facility] Comment on above: Order Comment: Speci men Type: BLOOD SPECIMENOrdering Facility: [facility] Address: [address] [place] [address] Performed By: #### 5 8410-2 ####[facility] [id number] [place] [address] [place] Hematocrit (Bld) [Volume fraction] 46.8 % High 36.0-46.0 [facility] Comment on above: Order Comment: Speci men Type: BLOOD SPECIMENOrdering Facility: [facility] Address: [address] [place] [address] Performed By: #### 5 8410-2 ####[facility] [id number] [place] [address] [place] Hemoglobin (Bld) [Mass/Vol] 16.0 g/dL High 11.5-15.5 [facility] Comment on above: Order Comment: Speci men Type: BLOOD SPECIMENOrdering Facility: [facility] Address: [address] [place] [address] Performed By: #### 5 8410-2 ####[facility]ITAL[facility] [id number] [place] [address] [place] MCH (RBC) [Entitic mass] 27.5 pg Normal 26.0-34.0 [facility] Comment on above: Order Comment: Speci men Type: BLOOD SPECIMENOrdering Facility: [facility] Address: [address] [place] [address] Performed By: #### 5 8410-2 ####[facility]ITALNCLI [id number] [place] [address] [place] MCHC (RBC) [Mass/Vol] 34.2 g/dL Normal 30.5-36.0 [facility] Comment on above: Order Comment: Speci men Type: BLOOD SPECIMENOrdering Facility: [facility] Address: [address] [place] [address] Performed By: #### 5 8410-2 ####[facility] [id number] [place] [address] [place] MCV (RBC) [Entitic vol] 80.4 fL Normal 80.0-100.0 [facility] Comment on above: Order Comment: Speci men Type: BLOOD SPECIMENOrdering Facility: [facility] Address: [address] [place] [address] Performed By: #### 5 8410-2 ####[facility] H[facility]ITALNCLI [id number] [address] [place] Nucleated RBC (Bld) [#/Vol] 10*3/uL Normal <0.01 [facility] Comment on above: Order Comment: Speci men Type: BLOOD SPECIMENOrdering Facility: [facility] Address: [address] [place] [address] Performed By: #### 5 8410-2 ####[facility] [id number] [place] [address] [place] Platelet mean volume (Bld) [Entitic vol] 9.9 fL Normal 9.0-12.7 [facility] Comment on above: Order Comment: Speci men Type: BLOOD SPECIMENOrdering Facility: [facility] Address: [address] [place] [address] Performed By: #### 5 8410-2 ####[facility] HOSPITALSHIKHABHARGAV [id number] [place] [address] [place] Platelets (Bld) [#/Vol] 203 10*3/uL Normal 150-400 [facility] Comment on above: Order Comment: Speci men Type: BLOOD SPECIMENOrdering Facility: [facility] Address: [address] [place] [address] Performed By: #### 5 8410-2 ####[facility]ITALNCLIA [id number] [place] [address] [place] RBC (Bld) [#/Vol] 5.82 10*6/uL High 3.90-5.20 [facility] Comment on above: Order Comment: Speci men Type: BLOOD SPECIMENOrdering Facility: [facility] Address: [address] [place] [address] Performed By: #### 5 8410-2 ####[facility]ITALNCLIA [id number] [place] [address] [place] WBC (Bld) [#/Vol] 8.62 10*3/uL Normal 3.70-11.00 [facility] Comment on above: Order Comment: Speci men Type: BLOOD SPECIMENOrdering Facility: [facility] Address: [address] [place] [address] Performed By: #### 5 8410-2 ####[facility]ITALNCLIA [id number] [place] [address] [place] Comprehensive metabolic 2000 panelon 09-20-2024 Albumin [Mass/Vol] 4.4 g/dL Normal 3.9-4.9 [facility] Comment on above: Order Comment: Speci men Type: BLOOD SPECIMENOrdering Facility: [facility] Address: [address] [place] [address] Performed By: #### 2 4323-8 ####[facility] ROBBIN MILLWNCLIA [id number] [place] [address] [place] ALP [Catalytic activity/Vol] 117 U/L Normal 34-123 [facility] Comment on above: Order Comment: Speci men Type: BLOOD SPECIMENOrdering Facility: [facility] Address: [address] [place] [address] Performed By: #### 2 4323-8 ####[facility]ALL[facility] [id number] [place] [address] [place] ALT [Catalytic activity/Vol] 23 U/L Normal 7-38 [facility] Comment on above: Order Comment: Speci men Type: BLOOD SPECIMENOrdering Facility: [facility] Address: [address] [place] [address] Performed By: #### 2 4323-8 ####[facility]ITALNCLIA [id number] [place] [address] [place] Anion gap [Moles/Vol] 10 mmol/L Normal 8-15 [facility] Comment on above: Order Comment: Speci men Type: BLOOD SPECIMENOrdering Facility: [facility] Address: [address] [place] [address] Performed By: #### 2 4323-8 ####[facility]ALL[facility] [id number] [place] [address] [place] AST [Catalytic activity/Vol] 17 U/L Normal 13-35 [facility] Comment on above: Order Comment: Speci men Type: BLOOD SPECIMENOrdering Facility: [facility] Address: [address] [place] [address] Performed By: #### 2 4323-8 ####[facility] MILLTOWNCLIA [id number] [place] [address] [place] Bilirubin [Mass/Vol] 0.5 mg/dL Normal 0.2-1.3 [facility] Comment on above: Order Comment: Speci men Type: BLOOD SPECIMENOrdering Facility: [facility] Address: [address] [place] [address] Performed By: #### 2 4323-8 ####[facility] MILLTOWNCLIA [id number] [place] [address] [place] Calcium [Mass/Vol] 9.3 mg/dL Normal 8.5-10.2 [facility] Comment on above: Order Comment: Speci men Type: BLOOD SPECIMENOrdering Facility: [facility] Address: [address] [place] [address] Performed By: #### 2 4323-8 ####[facility] MILLWNCLIA [id number] [place] [address] [place] Chloride [Moles/Vol] 103 mmol/L Normal 98-107 [facility] Comment on above: Order Comment: Speci men Type: BLOOD SPECIMENOrdering Facility: [facility] Address: [address] [place] [address] Performed By: #### 2 4323-8 ####[facility] MILLTOWNCLIA [id number] [place] [address] [place] CO2 [Moles/Vol] 22 mmol/L Normal 22-30 [facility] Comment on above: Order Comment: Speci men Type: BLOOD SPECIMENOrdering Facility: [facility] Address: [address] [place] [address] Performed By: #### 2 4323-8 ####[facility] MILLTOWNCLIA [id number] [place] [address] [place] Creatinine [Mass/Vol] 0.61 mg/dL Normal 0.58-0.96 [facility] Comment on above: Order Comment: Jerrell gómez Type: BLOOD SPECIMENOrdering Facility: [facility] Address: [address] [place] [address] Performed By: #### 2 4323-8 ####[facility] [id number] [place] [address] [place] Creatinine and Glomerular filtration rate.predicted panel (S/P/Bld) 119 mL/min/1.73m??? Normal >=60 [facility] Comment on above: Order Comment: Jerrell gómez Type: BLOOD SPECIMENOrdering Facility: [facility] Address: [address] [place] [address] Result Comment: Yasmin mated Glomerular Filtration Rate (eGFR) is calculated using the 2020 CKD-EPI creatinine equation. This equation utilizes serum creatinine, sex, and age as parameters. The creatinine assay has traceable calibration to isotope dilution-mass spectrometry. Refer to KDIGO guidelines for clinical interpretation. In patients with unstable renal function, e.g. those with acute kidney injury, the eGFR may not accurately reflect actual GFR. Performed By: #### 2 4323-8 ####[facility] [id number] [place] [address] [place] Glucose [Mass/Vol] 306 mg/dL High 74-99 [facility] Comment on above: Order Comment: Jerrell gómez Type: BLOOD SPECIMENOrdering Facility: [facility] Address: [address] [place] [address] Result Comment: The [place] Diabetes Association (ADA) provides guidance for cutoff values for fasting glucose and random glucose. The ADA defines fasting as no caloric intake for at least 8 hours. Fasting plasma glucose results between 100 to 125 mg/dL indicate increased risk for diabetes (prediabetes). Fasting plasma glucose results greater than or equal to 126 mg/dL meet the criteria for diagnosis of diabetes. In the absence of unequivocal hyperglycemia, results should be confirmed by repeat testing. In a patient with classic symptoms of hyperglycemia or hyperglycemic crisis, random plasma glucose results greater than or equal to 200 mg/dL meet the criteria for diagnosis of diabetes. Reference: Standards of Medical Care in Diabetes 2016, [place] Diabetes Association. Diabetes Care. 2016.39(Suppl 1). Performed By: #### 2 4323-8 ####[facility]ITALNCH[facility]HL[facility] [id number] [place] [address] [place] Potassium [Moles/Vol] 4.2 mmol/L Normal 3.7-5.1 [facility] Comment on above: Order Comment: Speci men Type: BLOOD SPECIMENOrdering Facility: [facility] Address: [address] [place] [address] Performed By: #### 2 4323-8 ####[facility] [id number] [place] [address] [place] Protein [Mass/Vol] 7.2 g/dL Normal 6.3-8.0 [facility] Comment on above: Order Comment: Speci men Type: BLOOD SPECIMENOrdering Facility: [facility] Address: [address] [place] [address] Performed By: #### 2 4323-8 ####[facility] [id number] [place] [address] [place] Sodium [Moles/Vol] 135 mmol/L Low 136-144 [facility] Comment on above: Order Comment: Speci men Type: BLOOD SPECIMENOrdering Facility: [facility] Address: [address] [place] [address] Performed By: #### 2 4323-8 ####[facility] [id number] [place] [address] [place] Urea nitrogen [Mass/Vol] 11 mg/dL Normal 7-21 [facility] Comment on above: Order Comment: Speci men Type: BLOOD SPECIMENOrdering Facility: [facility] Address: [address] [place] [address] Performed By: #### 2 4323-8 ####[facility] HOSPITALEdwin [id number] [place] [address] [place] HbA1c (Bld)on 09-20-2024 Average glucose Estimated from glycated hemoglobin (Bld) [Mass/Vol] 255 mg/dL Normal [facility] Comment on above: Order Comment: Speci men Type: BLOOD SPECIMENOrdering Facility: [facility] Address: [address] [place] [address] Result Comment: eAG: (Estimated average glucose) is a calculated value from HgbA1c and is branch service representative of the average blood glucose level in the last 2-3 month period. Performed By: #### 5 5454-3 ####[facility] LABIA [id number] [place] [address] [place] HbA1c (Bld) [Mass fraction] 10.5 % High 4.3-5.6 [facility] Comment on above: Order Comment: Jerrell gómez Type: BLOOD SPECIMENOrdering Facility: [facility] Address: [address] [place] [address] Result Comment: Amer ican Diabetes Association guidelines indicate that patients with HgbA1c in the range 5.7-6.4% are at increased risk for development of diabetes, and intervention by lifestyle modification may be beneficial. HgbA1c greater or equal to 6.5% is considered diagnostic of diabetes. Performed By: #### 5 5454-3 ####[facility] LABIA [id number] [place] [id number] [place] Lipid 1996 panelon 5 Cholesterol [Mass/Vol] 163 mg/dL Normal <200 [facility] Comment on above: Order Comment: Jerrell gómez Type: BLOOD SPECIMENOrdering Facility: [facility] Address: [address] [place] [address] Result Comment: <200 mg/dL, Desirable 200-239 mg/dL, Borderline high >239 mg/dL, High Performed By: #### 2 4331-1 ####[facility] LABCLIA [id number] [address] [id number] [address]#### 3016-3 ####[facility] LABCLIA [id number] [address] Cholesterol in HDL [Mass/Vol] 35 mg/dL Low >39 [facility] Comment on above: Order Comment: Speci men Type: BLOOD SPECIMENOrdering Facility: [facility] Address: [address] [place] [address] Result Comment: 40-5 9 mg/dL, Acceptable >59 mg/dL, High: Negative risk factor for coronary heart disease <40 mg/dL, Low: Positive risk factor for coronary heart disease Performed By: #### 2 4331-1 ####[facility] LABCLIA [id number] [address] [id number] [address]#### 3016-3 ####[facility] LABCLIA [id number] [address] Cholesterol in LDL [Mass/Vol] 101 mg/dL High <100 [facility] Comment on above: Order Comment: Speci men Type: BLOOD SPECIMENOrdering Facility: [facility] Address: [address] [place] [address] Result Comment: <100 mg/dL, Optimal 100-129 mg/dL, Near optimal/above optimal 130-159 mg/dL, Borderline high 160-189 mg/dL, High >189 mg/dL, Very high Secondary prevention optimal LDL Cholesterol levels are recommended to be <70 mg/dL LDL cholesterol is calculated using the Santana-NIH equation. Performed By: #### 2 4331-1 ####[facility] LABCLIA [id number] [address], [facility]95 [place] [id number] [place] [address] [place]#### 3016-3 ####[facility] LABIA [id number] [address], [facility]95 [place] Cholesterol in LDL/Cholesterol in HDL [Mass ratio] 2.89 {ratio} High <2.54 [facility] Comment on above: Order Comment: Speci men Type: BLOOD SPECIMENOrdering Facility: [facility] Address: [address] [place] [address] Result Comment: Ashley steven: 1. National Cholesterol Education Program ATP III Guideline At-A-Glance Quick Desk Reference: National Heart, Lung, and Blood [place]. National Institutes of Health. 2001: NIH Publication No. 01-3305. 2. An International Atherosclerosis Society position paper: global recommendations for the management of dyslipidemia: executive summary, Atherosclerosis. 2014: 232(2):410-413. Performed By: #### 2 4331-1 ####[facility] LABCLIA [id number] [address] [id number] [place] [address] [place]#### 3016-3 ####[facility] LABIA [id number] [address], [facility]95 [place] Cholesterol in VLDL [Mass/Vol] 25 mg/dL Normal <30 [facility] Comment on above: Order Comment: Speci men Type: BLOOD SPECIMENOrdering Facility: [facility] Address: [address] [place] [address] Performed By: #### 2 4331-1 ####[facility] LABCLIA [id number] [address], [facility]95 [place] [facility] [id number] [place] [address] [place]#### 3016-3 ####[facility] LABCLIA [id number] [place] [address] [place] Cholesterol non HDL [Mass/Vol] 128 mg/dL Normal <130 [facility] Comment on above: Order Comment: Speci men Type: BLOOD SPECIMENOrdering Facility: [facility] Address: [address] [place] [address] Result Comment: <130 mg/dL, Optimal 130-159 mg/dL, Near optimal/above optimal 160-189 mg/dL, Borderline high 190-219 mg/dL, High >219 mg/dL, Very high Secondary prevention optimal non HDL Cholesterol levels are recommended to be <100 mg/dL Performed By: #### 2 4331-1 ####[facility] LABCLIA [id number] [place] [address] [place] [facility] [id number] [place] [address] [place]#### 3016-3 ####[facility] LABIA [id number] [place] [address] [place] Cholesterol.total/Choles terol in HDL [Mass ratio] 4.66 {ratio} Normal <5.10 [facility] Comment on above: Order Comment: Speci men Type: BLOOD SPECIMENOrdering Facility: [facility] Address: [address] [place], [place] [address] Performed By: #### 2 4331-1 ####[facility] LABCLIA [id number] [place] [address] [place] [facility] [id number] [place] [address] [place]#### 3016-3 ####[facility] LABCLIA [id number] [facility]ALK [address] [place] [address] [place] FASTING TIME [address] [facility] Comment on above: Order Comment: Speci men Type: BLOOD SPECIMENOrdering Facility: [facility] Address: [address] [place], [place] [address] Performed By: #### 2 4331-1 ####[facility] LABCLIA [id number] [facility] [address], [facility]95 [facility] [id number] [place] [address] [place]#### 3016-3 ####[facility] LABCLIA [id number] [address], [facility]95 [place] Triglyceride [Mass/Vol] 152 mg/dL High <150 C [facility] Comment on above: Order Comment: Speci men Type: BLOOD SPECIMENOrdering Facility: [facility] Address: [address] [place], [place] [address] Result Comment: <150 mg/dL, Normal 150-199 mg/dL, Borderline high 200-499 mg/dL, High >499 mg/dL, Very high Performed By: #### 2 4331-1 ####[facility] LABCLIA [id number] [address], [facility]95 [place] [facility] [id number] [place] [address] [place]#### 3016-3 ####[facility] LABCLIA [id number] [place] [id number] [place] SPIROMETRY - BASELINE AND PO ST DILATORon 09-20-2024 FEF25% POST (L/S) 6.11 L/S [facility] FEF25% PRE (L/S) 4.74 L/S [facility] UFL51-42% LLN (L/S) 2.26 L/S [facility] SMA59-57% POST (L/S) 2.63 L/S [facility] KZX02-58% PRE (L/S) 2.39 L/S [facility] WIN17-45% PREDICTED (L/S) 3.63 L/S [facility] FEF75% LLN (L/S) 0.75 L/S [facility] FEF75% POST (L/S) 1.23 L/S [facility] FEF75% PRE (L/S0 0.97 L/S [facility] FEF75% PREDICTED (L/S) 1.51 L/S [facility] FEF75% ULN (L/S) 2.78 L/S [facility] FET POST (S) 10.1 S [facility] FET PRE (S) 7.91 S [facility] FEV1 LLN (L) 2.6 L [facility] FEV1 PRE (L) 2.98 L [facility] FEV1 PREDICTED (L) 3.41 L [facility] FEV1 ULN (L) 4.18 L [facility] FEV1/FVC LLN (%) 72 % [facility] FEV1/FVC POST (%) 74 % [facility] FEV1/FVC PRE (%) 74 % [facility] FEV1/FVC PREDICTED (%) 83 % [facility] FEV1_POST (L) 3.17 L [facility] FVC LLN (L) 3.17 L [facility] FVC POST (L) 4.26 L [facility] FVC PRE (L) 4.06 L [facility] FVC PREDICTED (L) 4.13 L [facility] FVC ULN (L) 5.12 L [facility] PEF LLN (L/S) 5.73 L/S [facility] PEF POST (L/S) 6.42 L/S [facility] PEF PRE (L/S) 5.68 L[facility]S [facility] PEF ULN (L/S) 9.63 L/S [facility] [place] [address] [place] [address] Test Date: 2024-09-20 Pat Name: CHARMAINE AVILA Department: Room: Gender: Female [employer]: : 1990 Requested By: Order Number: [id number] Reading MD: Julissa Rodriguez MD Interpretive Statements Medications and Allergies were reviewed for possible drug interactions per policy. No contraindications or sensitivities were noted. Meds taken: No inhaled respiratory medications taken before testing. 2 puffs Albuterol (180 mcg) delivered by MDI via holding chamber. HR pre = 96/min, HR post = 98/min. Current ATS/ERS acceptability and repeatability standards for spirometry met. Start of test and EOFE criteria met. IMPRESSION: Spirometry is normal. Negative bronchodilator response. Electronically Signed On 09-20-2024 12:37:25 EDT by Julissa Rodriguez MD ID: [id number] Name: CHARMAINE AVILA Race: White Ht: 68.27 in Wt: 228.00 lbs Age: 34 Gender: Female : 1990 Dx: Unspecified asthma, uncomplicated Smoking Hx: Non-smoker Doctor: FERCHO PEREZ Test Date: 09/20/2024 Site: Tech: Graciela Gonsales PRE-BRONCH POST-BRONCH Juancho LLN Pred ULN %Pred ZScore Juancho %Pred %Chg ZScore SPIROMETRY FVC 4.06 3.17 4.13 5.12 98 -0.12 4.26 103 4 0.22 FEV1 2.98 2.60 3.41 4.18 87 -0.87 3.17 92 5 -0.50 FEV1/FVC 0.74 0.72 0.83 0.91 88 -1.46 0.74 89 1 -1.35 FEFMax 5.68 5.73 7.68 9.63 73 -1.69 6.42 83 12 -1.07 FEF50 2.92 2.64 4.25 5.86 68 -1.36 3.46 81 18 -0.81 FIF50 4.68 4.05 -13 FEF50/FIF50 0.62 90-100 0.85 36 FIVC 3.74 4.11 9 KMX01-02 2.39 2.26 3.63 5.27 65 -1.47 2.63 72 9 -1.16 ExpiredTime 7.91 10.10 27 TimeToFEFMax 0.13 0.10 -19 ELPIDIO 0.14 0.11 -19 VolExtrap% 3 3 -23 Comments: Medications and Allergies were reviewed for possible drug interactions per policy. No contraindications or sensitivities were noted. Meds taken: No inhaled respiratory medications taken before testing. 2 puffs Albuterol (180 mcg) delivered by MDI via holding chamber. HR pre = 96/min, HR post = 98/min. Current ATS/ERS acceptability and repeatability standards for spirometry met. Start of test and EOFE criteria met. PULMONARY FUNCTION LAB [facility] SPIROMETRY - BASELINE AND POST DILATOR [facility] [place] [address] [place] [address] Test Date: 2024-09-20 Pat Name: CHARMAINE AVILA Department: Room: Gender: Female [employer]ator: : 1990 Requested By: Order Number: [id number] Reading MD: Julissa Rodriguez MD Interpretive Statements Medications and Allergies were reviewed for possible drug interactions per policy. No contraindications or sensitivities were noted. Meds taken: No inhaled respiratory medications taken before testing. 2 puffs Albuterol (180 mcg) delivered by MDI via holding chamber. HR pre = 96/min, HR post = 98/min. Current ATS/ERS acceptability and repeatability standards for spirometry met. Start of test and EOFE criteria met. IMPRESSION: Spirometry is normal. Negative bronchodilator response. Electronically Signed On 09-20-2024 12:37:25 EDT by Julissa Rodriguez MD ID: [id number] Name: CHARMAINE AVILA Race: White Ht: 68.27 in Wt: 228.00 lbs Age: 34 Gender: Female : 1990 Dx: Unspecified asthma, uncomplicated Smoking Hx: Non-smoker Doctor: FERCHO PEREZ Test Date: 09/20/2024 Site: [facility] Jaime: Graciela Gonsales PRE-BRONCH POST-BRONCH Juancho LLN Pred ULN %Pred ZScore Juancho %Pred %Chg ZScore SPIROMETRY FVC 4.06 3.17 4.13 5.12 98 -0.12 4.26 103 4 0.22 FEV1 2.98 2.60 3.41 4.18 87 -0.87 3.17 92 5 -0.50 FEV1/FVC 0.74 0.72 0.83 0.91 88 -1.46 0.74 89 1 -1.35 FEFMax 5.68 5.73 7.68 9.63 73 -1.69 6.42 83 12 -1.07 FEF50 2.92 2.64 4.25 5.86 68 -1.36 3.46 81 18 -0.81 FIF50 4.68 4.05 -13 FEF50/FIF50 0.62 90-100 0.85 36 FIVC 3.74 4.11 9 LMO65-86 2.39 2.26 3.63 5.27 65 -1.47 2.63 72 9 -1.16 ExpiredTime 7.91 10.10 27 TimeToFEFMax 0.13 0.10 -19 ELPIDIO 0.14 0.11 -19 VolExtrap% 3 3 -23 Comments: Medications and Allergies were reviewed for possible drug interactions per policy. No contraindications or sensitivities were noted. Meds taken: No inhaled respiratory medications taken before testing. 2 puffs Albuterol (180 mcg) delivered by MDI via holding chamber. HR pre = 96/min, HR post = 98/min. Current ATS/ERS acceptability and repeatability standards for spirometry met. Start of test and EOFE criteria met. FVC_PRE (L) : 4.06 L FVC_POST (L) : 4.26 L FVC_PRED (L) : 4.13 L FVC_LLN (L) : 3.17 L FVC_ULN (L) : 5.12 L FEV1_PRE (L) : 2.98 L FEV1_POST (L) : 3.17 L FEV1_PRED (L) : 3.41 L FEV1_LLN (L) : 2.60 L FEV1_ULN (L) : 4.18 L FEV1/FVC_PRE (%) : 74 % FEV1/FVC_POST (%) : 74 % FEV1/FVC_PRED (%) : 83 % FEV1/FVC_LLN (%) : 72 % WUG34_GEP (L/S) : 4.74 L/S EWR96_XYMM (L/S) : 6.11 L/S CFA35_ZWR (L/S) : 0.97 L/S RCA90_HZDM (L/S) : 1.23 L/S EEV44_DZUG (L/S) : 1.51 L/S HHK48_QHO (L/S) : 0.75 L/S QPM41_YTN (L/S) : 2.78 L/S AYV36-95%_PRE (L/S) : 2.39 L/S KGF05-37%_POST (L/S) : 2.63 L/S LRH13-54%_PRED (L/S) : 3.63 L/S IET53-39%_LLN (L/S) : 2.26 L/S PEF_PRE (L/S) : 5.68 L/S PEF_POST (L/S) : 6.42 L/S PEFMAX_LLN (L/S) : 5.73 L/S PEFMAX_ULN (L/S) : 9.63 L/S FET_PRE (S) : 7.91 S FET_POST (S) : 10.[address] [facility] TSH SerPl-aCncon 09-20-2024 TSH Qn 1.330 m[IU]/L Normal 0.270-4.200 [facility] Comment on above: Order Comment: Speci men Type: BLOOD SPECIMENOrdering Facility: [facility] Address: [address] [place] [address] Result Comment: If t he patient is , TSH reference range varies by gestational period: First Trimester (weeks 9-12): 0.180-2.990 mIU/L Second Trimester: 0.110-3.980 mIU/L Third Trimester: 0.480-4.710 mIU/L Emerson Crawford et al. A Practical Approach for the Verifications and Determination of Site- and Trimester-Specific Reference Intervals for Thyroid Function tests in . Thyroid, 2019:29:3:412-420. Ezra Briggs, et al. 2017 Guidelines of the [place] Thyroid [employer] for the Diagnosis and Management of Thyroid Disease during and the . Thyroid, 2017:27:3:315-389. Performed By: #### 2 4331-1 ####[facility] LABCLIA [id number] [address] STATES OF [facility] [id number] [address] OF [place]#### 3016-3 ####[facility] LABCLIA [id number] [address] [place] CBC + DIFFon 08-19-2024 Baso # 0.02 x10EE3/UL Normal 0.00 - 0.10 [facility] Comment on above: Performed By: #### 2 06123 #### [facility],[address] [place] [address] 20817 Basophils/100 WBC (Bld) 0.3 % Normal 0.0 - 2.0 [facility] Comment on above: Performed By: #### 2 67637 #### [facility],[address] [place] [address] CBC + DIFF Normal [facility] Comment on above: Result Comment: CBC- COMPLETE BLOOD COUNT Performed By: #### 2 98737 #### [place] [address] EO # 0.10 x10EE3/UL Normal 0.00 - 0.50 [facility] Comment on above: Performed By: #### 2 09691 #### [facility],[address] [place] [address] 77072 Eosinophils/100 WBC (Bld) 1.4 % Normal 0.0 - 7.0 [facility] Comment on above: Performed By: #### 2 67664 #### [place] [id number] Erythrocyte distribution width (RBC) [Ratio] 13.8 % Normal 12.0 - 15.6 [facility] Comment on above: Performed By: #### 2 58260 #### [place] [address] Hematocrit (Bld) [Volume fraction] 43.2 % Normal 34.0 - 46.0 [facility] Comment on above: Performed By: #### 2 90804 #### [facility],[address] [place], [place] [address] Hemoglobin (Bld) [Mass/Vol] 15.0 g/dL Normal 12.0 - 16.0 [facility] Comment on above: Performed By: #### 2 05735 #### [facility],[address] [place], [place] [address] Lymph # 0.66 x10EE3/UL Low 0.80 - 2.80 [facility] Comment on above: Performed By: #### 2 61360 #### [facility],[address] [place] [address] Lymphocytes/100 WBC (Bld) 9.1 % Low 20.0 - 45.0 [facility] Comment on above: Performed By: #### 2 88154 #### [facility],[address] [place] [address] 19252 MANUAL DIFF N/A Normal [facility] Comment on above: Performed By: #### 2 35723 #### [facility],[address] [place] [address] 01344 MCH (RBC) [Entitic mass] 28 pg Normal 27 - 33 [facility] Comment on above: Performed By: #### 2 39598 #### [facility],[address] [place] [address] 19165 MCHC 35 X10 3 Normal 32 - 36 [facility] Comment on above: Performed By: #### 2 73417 #### [facility],[address] [place] [address] 32947 MCV (RBC) [Entitic vol] 82 fL Normal 80 - 99 [facility] Comment on above: Performed By: #### 2 73401 #### [facility],[address] [place] [address] 90421 [place] # 0.53 x10EE3/UL Normal 0.20 - 1.00 [facility] Comment on above: Performed By: #### 2 15486 #### [facility],[address] [place] [address] MONOS % 7.4 % Normal 0.0 - 10.0 [facility] Comment on above: Performed By: #### 2 84849 #### [facility],[address] [place] [address] Morphology Chance (Bld) [Interp] N/A Normal [facility] Comment on above: Performed By: #### 2 77713 #### [facility],[address] [place] [address] Neut # 5.90 x10EE3/UL Normal 1.50 - 7.10 [facility] Comment on above: Performed By: #### 2 35669 #### [facility],[address] [place] [address] Neutrophils/100 WBC (Bld) 81.8 % High 46.0 - 76.0 [facility] Comment on above: Performed By: #### 2 51911 #### [facility],[address] [place] [address] PLATELET 149 x10EE3/UL Low 150 - 450 [facility] Comment on above: Performed By: #### 2 04340 #### [facility],[address] [place] [address] Platelet mean volume (Bld) [Entitic vol] 7.3 fL Normal 6.6 - 10.5 [facility] Comment on above: Result Comment: AUTO MATED DIFFERENTIAL Performed By: #### 2 91524 #### [facility],[address] [place] [address] RBC 5.29 x 10EE6/UL Normal 4.10 - 5.30 [facility] Comment on above: Performed By: #### 2 55402 #### [facility],[address] [place] [address] 97934 WBC 7.2 x 10EE3/UL Normal 4.5 - 10.8 [facility] Comment on above: Performed By: #### 2 61085 #### [facility],[address] [place] [address] 80478 CHEST 2 VIEWSon 08-19-2024 CHEST 2 VIEWS [place] [address] Patient: CHARMAINE AVILA Phone#: : 1990 Age: 34 Gender: F Pt. Type: ER Account: [id number] Location: [facility] Ordering: DR. MIN FARAH Exam Date: 08/19/2024/3:30 Family Phys: NEERU Charge Code: [id number] Physician: [facility] Order #: [id number] Dose#: PROCEDURE: X-RAY CHEST 2 VIEWS COMPARISON: [facility], XR, CHEST 1 VIEW, 11/25/2022, 15:17. INDICATIONS: Cough. FINDINGS: LUNGS: Normal. No significant pulmonary parenchymal abnormalities. VASCULATURE: Normal. Unremarkable pulmonary vasculature. CARDIAC: Normal. No cardiac silhouette abnormality or cardiomegaly. MEDIASTINUM: Normal. No visible mass or adenopathy. PLEURA: Normal. No effusion or pleural thickening. BONES: Normal. No fracture or visible bony lesion. OTHER: Negative. CONCLUSION: No acute disease. Dictated by: Jamee Arguello MD on 08/19/2024 at 9:23 Approved by: Jamee Arguello MD on 08/19/2024 at 9:25 Normal [facility] CMP with eGFRon 08-19-2024 AGE 34 years Normal [facility] Comment on above: Performed By: #### 2 93582 #### [facility],[address] [place] [address] 01559 Albumin [Mass/Vol] 3.6 g/dL Normal 3.4 - 5.0 [facility] Comment on above: Performed By: #### 2 44324 #### [facility],[address] [place] [address] 56815 Albumin/Globulin [Mass ratio] 1.1 {ratio} Normal 0.9 - 1.6 [facility] Comment on above: Performed By: #### 2 73871 #### [facility],[address] [place] [address] 98860 ALK PHOS 133 U/L High 46 - 116 [facility] Comment on above: Performed By: #### 2 05639 #### [facility],[address] [place] [address] 87842 ALT [Catalytic activity/Vol] 41 U/L Normal 16 - 63 [facility] Comment on above: Performed By: #### 2 88277 #### [facility],[address] [place] [address] 10275 Anion gap [Moles/Vol] 17 mmol/L Normal 10 - 20 [facility] Comment on above: Performed By: #### 2 97484 #### [facility],[address] [place] [address] 03206 AST [Catalytic activity/Vol] 28 U/L Normal 13 - 39 [facility] Comment on above: Performed By: #### 2 10533 #### [facility],[address] [place] [address] 68036 B/C RATIO 9 ratio Normal 0 - 30 [facility] Comment on above: Performed By: #### 2 31467 #### [facility],[address] [place] [address] 57811 Bilirubin [Mass/Vol] 0.5 mg/dL Normal 0.2 - 1.0 [facility] Comment on above: Performed By: #### 2 09294 #### [facility],[address] [place] [address] 25171 Calcium [Mass/Vol] 8.5 mg/dL Normal 8.5 - 10.1 [facility] Comment on above: Performed By: #### 2 92722 #### [facility],[address] [place] [address] 91447 Chloride [Moles/Vol] 100 mmol/L Normal 98 - 107 [facility] Comment on above: Performed By: #### 2 27870 #### [facility],[address] [place] [address] 74266 CMP with eGFR Normal [facility] Comment on above: Result Comment: COMP REHENSIVE METABOLIC PANEL Performed By: #### 2 84613 #### [facility],[address] [place] [address] 83480 CO2 [Moles/Vol] 23.1 mmol/L Normal 21.0 - 32.0 [facility] Comment on above: Performed By: #### 2 75868 #### [facility],[address] [place] [address] 39368 Creatinine [Mass/Vol] 0.93 mg/dL Normal 0.55 - 1.02 [facility] Comment on above: Performed By: #### 2 73265 #### [facility],[address] [place] [address] 77340 GFR/1.73 sq M.predicted among non-blacks MDRD (S/P/Bld) [Vol rate/Area] mL/min/{1.73_m2} Normal 60 - 999 [facility] Comment on above: Performed By: #### 2 06030 #### [facility],[address] [place] [address] 38640 Result Comment: ACCO RDING TO THE NATIONAL KIDNEY DISEASE EDUCATION PROGRAM(NKDE), A NORMAL eGFR IS A VALUE GREATER THAN OR EQUAL TO 60 ML/MIN/1.73 SQ METERS. CHRONIC KIDNEY DISEASE: <60mL/MIN/1.73 SQ METERS KIDNEY FAILURE: <15mL/MIN/1.73 SQ METERS THIS TEST SHOULD ONLY BE USED FOR PATIENTS 18 YEARS OF AGE AND OLDER. Globulin (S) [Mass/Vol] 3.4 g/dL Normal 1.5 - 3.8 [facility] Comment on above: Performed By: #### 2 37180 #### [facility],[address] [place] [address] 17616 Glucose [Mass/Vol] 430 mg/dL High 74 - 106 [facility] Comment on above: Performed By: #### 2 94663 #### [facility],[address] [place] [address] 78229 Potassium [Moles/Vol] 3.7 mmol/L Normal 3.5 - 5.1 [facility] Comment on above: Performed By: #### 2 62838 #### [facility],[address] [place] [address] 81491 Protein [Mass/Vol] 7.0 g/dL Normal 6.4 - 8.2 [facility] Comment on above: Performed By: #### 2 20421 #### [facility],[address] [place] [address] 67242 Sodium [Moles/Vol] 136 mmol/L Normal 136 - 145 [facility] Comment on above: Performed By: #### 2 81493 #### [facility],[address] [place] [address] 33635 Urea nitrogen [Mass/Vol] 8 mg/dL Normal 7 - 18 [facility] Comment on above: Performed By: #### 2 66582 #### [facility],[address] [place] [address] 28520 CORONAVIRUS (SARS) ANTIGEN T ESTon 08-19-2024 EXTERNAL QC DONE? YES Normal [facility] Comment on above: Performed By: #### 2 62674 #### [facility],[address] [place] [address] 58045 INTERNAL CONTROL PASS Normal [facility] Comment on above: Performed By: #### 2 06575 #### [facility],[address] [place] [address] 77763 SARS ANTIGEN Negative Normal NORMAL: NEGATIVE [facility] Comment on above: Performed By: #### 2 69339 #### [facility],[address] [place], [place] [address] SEND TO IC? NO Normal [facility] Comment on above: Result Comment: SARS -CoV-2 THIS TEST IS BEING USED UNDER THE FDA EUA PROCEDURE. THIS ASSAY HAS BEEN VALIDATED AT [facility] FOR USE WITH NASAL AND NASOPHARYNGEAL SWAB SPECIMENS. INTERPRETIVE DATA TEST RESULTS SHOULD ALWAYS BE CONSIDERED IN THE CONTEXT OF CLINICAL OBSERVATIONS AND EPIDEMIOLOGICAL DATA IN MAKING FINAL DIAGNOSIS AND PATIENT MANAGEMENT DECISIONS. PATIENT MANAGEMENT SHOULD FOLLOW CURRENT CDC GUIDELINES. THE JARET SARS ANTIGEN WINIFRED DOES NOT DIFFERENTIATE BETWEEN SARS-CoV & SARS-CoV-2. A POSITIVE TEST RESULT INDICATES THE PRESENCE OF SARS-CoV-2 NUCLEOCAPSID PROTEIN ANTIGEN, AND THE PATIENT IS INFECTED WITH THE VIRUS AND PRESUMED TO BE CONTAGIOUS. A NEGATIVE TEST RESULT FOR THIS TEST MEANS THAT SARS-CoV-2 NUCLEOCAPSID PROTEIN ANTIGEN WAS NOT PRESENT IN THE SPECIMEN ABOVE THE LIMIT OF DETECTION. HOWEVER, A NEGATIVE RESULT DOES NOT RULE OUT COVID-19 AND SHOULD NOT BE USED THE SOLE BASIS FOR TREATMENT OR PATIENT MANAGEMENT DECISIONS. A NEGATIVE RESULT DOES NOT EXCLUDE THE POSSIBILITY OF COVID-19. NEGATIVE RESULTS, FROM PATIENTS WITH SYMPTOM ONSET BEYOND FIVE DAYS, SHOULD BE TREATED PRESUMPTIVE AND CONFIRMATION WITH A MOLECULAR ASSAY, IF NECESSARY, FOR PATIENT MANAGEMENT, MAY BE PERFORMED. WHEN DIAGNOSTIC TESTING IS NEGATIVE, THE POSSIBLILTY OF A FALSE NEGATIVE RESULT SHOULD BE CONSIDERED IN THE CONTEXT OF A PATIENT'S RECENT EXPOSURES AND THE PRESENCE OF CLINICAL SIGNS AND SYMPTOMS CONSISTENT WITH COVID-19. THE POSSIBILITY OF A FALSE NEGATIVE RESULT SHOULD ESPECIALLY BE CONSIDERED IF THE PATIENT'S RECENT EXPOSURES OR CLINICAL PRESENTATION INDICATE THAT COVID-19 IS LIKELY, AND DIAGNOSTIC TESTS FOR OTHER CAUSES OF ILLNESS (e.g., OTHER RESPIRATORY ILLNESS) ARE NEGATIVE. IF COVID-19 IS STILL SUSPECTED BASED ON EXPOSURE HISTORY TOGETHER WITH OTHER CLINICAL FINDINGS, RE-TESTING SHOULD BE CONSIDERED BY HEALTHCARE PROVIDERS IN CONSULTATION WITH PUBLIC HEALTH AUTHORITIES. Performed By: #### 2 77627 #### [facility],[address] [place], [place] [address] D-DIMER, QUANTITATIVEon 07-24 D-DIMER QUANT 258 ng/ml High 0 - 230 [facility] Comment on above: Performed By: #### 2 07826 #### [facility],[address] [place] [address] 61154 D-DIMER, QUANTITATIVE Normal [facility] Comment on above: Result Comment: LLOYD T D-DIMER Performed By: #### 2 05149 #### [facility],[address] [place] [address] 84290 ED MED ADMINISTRATION DETAIL on 08-19-2024 ED MED ADMINISTRATION DETAIL Mortuary Operations Manager Medication Administration Record [address] [place] [address] [id number] 08/19/2024 Patient: CHARMAINE AVILA Sex: Female : 1990 Age: 34y MEASUREMENTS: Wt: 106.6 kg, Ht/Esequiel: 67.0 in, BMI: 36.81 ALLERGIES: Nubain, Percocet, Trulicity, codeine Medication Ordered Medication Administration Date/Time Albuterol-Ipratropi u 03:08/19 Albuterol-Ipratropi um (DuoNeb) 3mg/0.5mg Neb Tx 3 Given m (DuoNeb) mL given. Given by the respiratory therapist. Allergies verified and 03:08/19/2024 3mg/0.5mg Neb Tx confirmed 5 rights. Information reviewed with patient including Dayan Fisher 3 mL (NOW x1) reason for taking this medication and signs of allergic reaction. - Scanned 03:14 Dayan Perezentine Dexamethasone 03:16 08/19 Dexamethasone (Decadron) IVP 5 mg given via Site# Given (Decadron) IVP 5 1. Medication Wastage: 5 mg wasted. - 03:17 Yancy Weaver, 03:16 08/19/2024 mg (NOW x1) R.NAlberto Weaver R.N. Scanned 1 of 2 Mortuary Operations Manager Medication Ordered Medication Administration Date/Time IV NS 0.9 % 1000 03:17 08/19 IV NS 0.9 % 1000 mL started in bag#1 1000 mL at Started mL at 500 mL/hr 500 mL/hr via Site# 1. Allergies verified and confirmed 5 rights. Via 03:08/19/2024 (NOW x1) IV pump. IV patency established. IV site checked: no pain, redness, Yancy Owen, or swelling. IV flushed thoroughly pre-medication administration. R.N. Information reviewed with patient including reason for taking this Stopped medication, signs of allergic reaction and precautions. Verbalizes 04:58 08/19/2024 understanding. - 03:17 Mauricio Fry R.N. Scanned 04:58 08/19 Medication Discontinued: bag #1 infused. Total amount infused: 1000 mL. IV patency established. IV site checked: no pain, redness, or swelling. IV flushed thoroughly post-medication administration. - 04:58 Ally Eastman R.N. Ibuprofen (Motrin) 03:13 08/19 Ibuprofen (Motrin) PO 600 mg given. Allergies verified Given PO 600 mg (NOW and confirmed 5 rights. Information reviewed with patient including 03:13 08/19/2024 x1) reason for taking this medication, signs of allergic reaction and Yancy Owen, precautions. Verbalizes understanding. - 03:14 Yancy Weaver R.N. R.N. Scanned Cepacol Sore 04:24 08/19 Cepacol Sore Throat-Cough Smitha 1 smitha given. Allergies Given Throat-Cough Smitha 1 verified and confirmed 5 rights. Information reviewed with patient 04:24 08/19/2024 smitha (NOW x1) including reason for taking this medication. Verbalizes Ally Eastman R.N. understanding. - 04:24 Ally Eastman R.N. Not Scanned 2 of 2 Normal [facility] ED NURSES CLINICAL NOTEon ED NURSES CLINICAL NOTE Nurse Narrative Nurse Clinical Narrative [address] [address] [id number] 08/19/2024 Patient: CHARMAINE AVILA Sex: Female : 1990 Age: 34y Primary Insurance: [facility] Policy Number: [id number] Group Number: CSOHIO Subscriber: Other Disposition: Discharge to Home Disposition Decision Time: 05:08 08/19/2024 Departure Time: 05:30 08/19/2024 TRIAGE Arrived by private vehicle. Historian: (patient). Accompanied by family. Triage time: 02:42 08/19/2024. Acuity: LEVEL 3. Chief Complaint: FEVER, MUSCLE ACHES, FATIGUE, HEADACHE and COUGH. Alert. No acute distress. This started yesterday. SEPSIS SCREEN: NEGATIVE. SIRS criteria negative. No possible sources of infection. -- 02:49 08/19/24 EDT Yancy Weaver R.N. 02:44 08/19/24. BP: 148/82 MAP: 104. HR: 138. RR: 18. O2 saturation: 95% Temperature: 100 F (oral). Pain level now 810. -- 02:49 08/19/24 EDT Yancy Weaver R.N. Measurements: 02:48 08/19/24 Wt: 106.6 kg, Ht/Esequiel: 67.0 in, BMI: 36.81 -- 02:48 08/19/24 EDT Yancy Weaver R.N. Medications: no known home medications -- 02:45 08/19/24 EDT Yancy Weaver R.N. 1 of 4 Nurse Narrative Allergies: codeine -- 02:43 08/19/24 EDT Yancy Weaver R.N. Trulicity -- 02:43 08/19/24 EDT Yancy Weaver R.N. Nubain -- 02:43 08/19/24 EDT Yancy Weaver R.N. Percocet -- 02:44 08/19/24 EDT Yancy Weaver R.N. Problems: Asthma -- 02:44 08/19/24 EDT Yancy Weaver R.N. Diabetes Mellitus Type 2 -- 02:44 08/19/24 EDT Yancy Weaver R.N. ADDITIONAL SURGERIES: -- 02:44 08/19/24 EDT Yancy Weaver R.N. Cholecystectomy -- 02:44 08/19/24 EDT Yancy Weaver R.N. Tubal Ligation -- 02:44 08/19/24 EDT Yancy Weaver R.N. Tonsillectomy -- 02:44 08/19/24 EDT Yancy Weaver R.N. History 02:42 08/19/24. PAST MEDICAL HX: LNMP: Last normal menstrual period now. The patient is . SOCIAL HX: Light tobacco smoker (cigarette)- less than 1/2 a pack per day. No alcohol use or drug use. The patient has not traveled outside the [place] Infectious disease exposure: No infectious disease exposure. ABUSE ASSESSMENT: The patient answered "yes" to the question(s) "Do you feel safe in your home?" and "no" to the question(s) "Are you afraid to go home?". SELF HARM ASSESSMENT: Self harm assessment was performed. The patient answered "no" to the question(s) "Have you recently felt down, depressed, or hopeless?" and "Do you have thoughts of harming or killing yourself?". FALL RISK ASSESSMENT: Fall risk assessment completed. No risk factors identified. -- 02:49 08/19/24 EDT Yancy Weaver R.N. 2 of 4 Nurse Narrative Interventions 02:42 08/19/24. Identification band on patient. Advanced care plan discussed with patient. Patient does not have advanced directive. -- 02:49 08/19/24 EDT Yancy Weaver R.N. PHYSICAL ASSESSMENT 03:14 08/19/24. Ambulatory to room. ( Pt c/o cough, headache, body aches, fever and pain when coughing). GENERAL / NEURO / PSYCH: Alert. Oriented X 4. Appears in no acute distress. HEENT: Pupils equal, round and reactive to light. No facial asymmetry noted. Mucous membranes are pink. RESPIRATORY: The patient can speak in full sentences. Cough. Chest wall tenderness. CVS: Cardiac rhythm: sinus tachycardia. Capillary refill less than 2 seconds. Pulses within normal limits. GI / : Abdomen nontender. SKIN: Skin is warm and dry. -- 03:24 08/19/24 EDT Yancy Weaver R.N. NURSING PROGRESS NOTES 03:08/19/24. Rounding: Pain: assessed pain level. Position: states comfortable. Proximity of possessions / care items: call light within easy reach. Set expectations: advised patient of rounding protocol timing. Two patient identifiers checked. Call light placed in reach. Side rails up x 1. Bed placed in lowest position. Brakes of bed on. -- 03:03 08/19/24 EDT Ally Eastman R.N. 03:13 08/19/24. Ibuprofen (Motrin) PO 600 mg given. Allergies verified and confirmed 5 rights. Information reviewed with patient including reason for taking this medication, signs of allergic reaction and precautions. Verbalizes understanding. -- 03:14 08/19/24 EDT Yancy Weaver R.N. 03:16 08/19/24. Dexamethasone (Decadron) IVP 5 mg given via Site# 1. Medication Wastage: 5 mg wasted. -- 03:17 08/19/24 EDT Yancy Weaver R.N. 03:17 08/19/24. Site #1 started via IV in the right forearm with a 20g angiocath with good blood return; 1 attempt. Blood drawn: rainbow set tube(s). Saline lock flushed with 5 mL saline. -- 03:17 08/19/24 EDT Yancy Weaver R.N. 03:17 08/19/24. IV NS 0.9 % 1000 mL started in bag#1 1000 mL at 500 mL/hr via Site# 1. Allergies verified and confirmed 5 rights. Via IV pump. IV patency establ (more content not included)... Normal [facility] ED ORDER SHEET (CPOE ONLY)on 08-19-2024 ED ORDER SHEET (CPOE ONLY) Order Sheet Order Sheet [address] [address] [id number] 08/19/2024 Patient: CHARMAINE AVILA Sex: Female : 1990 Age: 34y MEASUREMENTS: Wt: 106.6 kg, Ht/Esequiel: 67.0 in, BMI: 36.81 ALLERGIES: Nubain, Percocet, Trulicity, codeine MEDICATION/IV/DRIP/ FLUID ORDERS Order Description Priority Entered Acknowledged Completed Albuterol-Ipratropi um (DuoNeb) 03:04 08/19/2024 03:05 03:14 3mg/0.5mg Neb Tx3 mL (NOW Min Farah D.O. 08/19/2024 08/19/2024 x1) Mauricio Man Dexamethasone (Decadron) 03:04 08/19/2024 03:05 03:17 IVP5 mg (NOW x1) Min Farah D.O. 08/19/2024 08/19/2024 Mauricio Man R.N. Reason for ordering with alerts: Benefits outweigh risks --03:04 08/19/2024 Min Farah D.O. IV NS 0.9 %1000 mL at 500 03:04 08/19/2024 03:05 03:17 mL/hr (NOW x1) Min Farah D.O. 08/19/2024 08/19/2024 Mauricio Man R.N. Ibuprofen (Motrin) PO600 mg 03:04 08/19/2024 03:05 03:14 (NOW x1) Min Farah D.O. 08/19/2024 08/19/2024 Mauricio Man R.N. 1 of 3 Order Sheet Reason for ordering with alerts: Benefits outweigh risks --03:04 08/19/2024 Min Farah D.O. Cepacol Sore Throat-Cough 04:03 08/19/2024 04:04 04:24 Loz1 smitha (NOW x1) Min Farah D.O. 08/19/2024 08/19/2024 Mauricio Man R.N. LAB ORDERS Order Description Priority Entered Acknowledged Collected Completed Flu Swab (Influenzae Stat 02:45 08/19/2024 02:50 08/19/2024 02:57 08/19/2024 AAg) Stat Yancy Cardona R.N. D.O. [place], R.N. Rapid COVID (SARS) Stat 02:45 08/19/2024 02:50 08/19/2024 02:57 08/19/2024 ANTIGEN TEST Stat Yancy Cardona R.N. D.O. [place], R.N. CBC w Diff Stat Stat 03:04 08/19/2024 03:04 08/19/2024 03:07 08/19/2024 Ally Cardona R.N. Brittany D.O. [place], R.N. BNP Stat Stat 03:04 08/19/2024 03:04 08/19/2024 03:07 08/19/2024 Ally Cardona R.N. Brittany D.O. [place], R.N. CMP Stat Stat 03:04 08/19/2024 03:04 08/19/2024 03:07 08/19/2024 Ally Cardona R.N. Brittany D.O. [place], R.N. D-Dimer Stat Stat 03:04 08/19/2024 03:04 08/19/2024 03:07 08/19/2024 Ally Cardona R.N. Brittany D.O. [place], R.N. EKG - ED Stat Stat 03:04 08/19/2024 03:04 08/19/2024 03:47 08/19/2024 2 of 3 Order Sheet Ally Cardona R.N. Cortnee Amos D.O. Troponin-I Stat Stat 03:04 08/19/2024 03:05 08/19/2024 03:07 08/19/2024 Ally Cardona R.N. Brittany D.O. [place], R.N. DIAGNOSTIC STUDY ORDERS Order Description Priority Entered Acknowledged Completed Chest 2V Stat Stat 02:45 08/19/2024 02:50 03:24 Min Farah D.O. 08/19/2024 08/19/2024 Mauricio Henao R.N. Order Comments: 02:44 08/19/2024: Status: Not . Min Farah D.O. Reason for Study: Cough STAFF ORDERS Order Description Priority Entered Acknowledged Collected Completed [Electronically signed by Min Farah D.O. (08/19/2024 06:42 EDT)] 3 of 3 [facility] ED PHYSICIAN CLINICAL REPORT on 08-19-2024 ED PHYSICIAN CLINICAL REPORT Narrative Physician Clinical Narrative [address] [place] [address] [id number] 08/19/2024 Patient: CHARMAINE AVILA Sex: Female : 1990 Age: 34y Primary Insurance: [employer] Policy Number: [id number] Group Number: CSOHIO Subscriber: Other Disposition: Discharge to Home Disposition Decision Time: 05:08 08/19/2024 Departure Time: 05:30 08/19/2024 Measurements Wt: 106.6 kg, Ht/Esequiel: 67.0 in, BMI: 36.81 Initial Vital Sign Measured Time BP MAP HR RR O2Sat ETCO2 Temp Pain GCS RTS 02:44 08/19/2024 148/82 104 138 18 95% 100.0 F 8 Arrived- By private vehicle. Historian- patient. Independent historian- family. HISTORY OF PRESENT ILLNESS (This patient presents to the ER for evaluation of cough, congestion, aches, present 24 hours, here with , who has the same, does not smoke, no hx asthma, no meds taken for this, have not seen family physician about this, pov to the ER, not employed, is breast feeding, and not ill; PE: Pleasant alert, warm to touch, neck supple, no a/p/supra clav nodes, pharynx symmetric, no rpa, ppa, or fishing captain, lungs cta, somewhat diminished, (no change with aerosol), no retractions, no paradoxical chest/abd movement, abd soft, states not gravid, had soft abd ((+)tl ), ext without swelling, no periheral oedeam, no hyperventilation, (+) tachycardia,). 13 Narrative REVIEW OF SYSTEMS Status: Not . PAST HISTORY Asthma Diabetes Mellitus Type 2 Surgeries: Cholecystectomy Tonsillectomy Tubal Ligation Medications: no known home medications Allergies: codeine Nubain Percocet Trulicity ADDITIONAL NOTES The nursing notes have been reviewed. PHYSICAL EXAM Vital Signs: Have been reviewed. LABS, X-RAYS, AND EKG 12-LEAD EKG: nsr, no ectopy, rate 141, no acuity to this ekg, emergency room physician reading. Chest X-ray: No acute disease. Normal lung markings present. No infiltrate. Technique: good. The X-rays were interpreted contemporaneously by me. 2 of 13 Narrative Laboratory Tests: (neg swabs, glucose debbi (has not been taking her metformin),). Laboratory Tests: CBC + DIFF Final REMINGTON: 08/19/2024 03:17:00 EDT MsgRcvd: 08/19/2024 03:35 EDT Lab Test Result Reference Status Received Comments 08/19/2024 03:35 CBC-COMPLETE CBC + DIFF Final EDT BLOOD COUNT 08/19/2024 03:35 WBC 7.2 x 10/UL 4.5 - 10.8 Final EDT 08/19/2024 03:35 RBC 5.29 x 10/UL 4.10 - 5.30 Final EDT 08/19/2024 03:35 HEMOGLOBIN 15.0 g/dl 12.0 - 16.0 Final EDT 08/19/2024 03:35 HEMATOCRIT 43.2 % 34.0 - 46.0 Final EDT 08/19/2024 03:35 MCV 82 fl 80 - 99 Final EDT 08/19/2024 03:35 MCH 28 pg 27 - 33 Final EDT 08/19/2024 03:35 MCHC 35 X10 3 32 - 36 Final EDT 08/19/2024 03:35 RDW/CV 13.8 % 12.0 - 15.6 Final EDT 149 x10/UL 08/19/2024 03:35 PLATELET 150 - 450 Final Below low normal EDT 08/19/2024 03:35 AUTOMATED MPV 7.3 fl 6.6 - 10.5 Final EDT DIFFERENTIAL 3 of 13 Narrative Lab Test Result Reference Status Received Comments 81.8 % 08/19/2024 03:35 NEUT % 46.0 - 76.0 Final Above high normal EDT 9.1 % 08/19/2024 03:35 LYMPH % 20.0 - 45.0 Final Below low normal EDT 08/19/2024 03:35 MONOS % 7.4 % 0.0 - 10.0 Final EDT 08/19/2024 03:35 EO % 1.4 % 0.0 - 7.0 Final EDT 08/19/2024 03:35 BASO % 0.3 % 0.0 - 2.0 Final EDT 0.66 x10/UL 08/19/2024 03:35 Lymph # 0.80 - 2.80 Final Below low normal EDT 08/19/2024 03:35 Neut # 5.90 x10/UL 1.50 - 7.10 Final EDT 08/19/2024 03:35 [place] # 0.53 x10/UL 0.20 - 1.00 Final EDT 08/19/2024 03:35 EO # 0.10 x10/UL 0.00 - 0.50 Final EDT 08/19/2024 03:35 Baso # 0.02 x10/UL 0.00 - 0.10 Final EDT 08/19/2024 03:35 MANUAL DIFF N/A New Order EDT 08/19/2024 03:35 MORPHOLOGY N/A New Order EDT CMP with eGFR Final REMINGTON: 08/19/2024 03:17:00 EDT MsgRcvd: 08/19/2024 03:56 EDT 4 of 13 Narrative Lab Test Result Reference Status Received Comments COMPREHENSIVE 08/19/2024 CMP with eGFR Final METABOLIC 03:56 EDT PANEL 08/19/2024 SODIUM 136 mmol/l 136 - 145 Final 03:56 EDT 08/19/2024 POTASSIUM 3.7 mmol/L 3.5 - 5.1 Final 03:56 EDT 08/19/2024 CHLORIDE 100 mmol/L 98 - 107 Final 03:56 EDT 08/19/2024 CO2 23.1 mmol/L 21.0 - 32.0 Final 03:56 EDT 430 mg/dl 08/19/2024 GLUCOSE Above high 74 - 106 Final 03:56 EDT normal 08/19/2024 BUN 8 mg/dl 7 - 18 Final 03:56 EDT 08/19/2024 CREATININE 0.93 mg/dl 0.55 - 1.02 Final 03:56 EDT 08/19/2024 AST/SGOT 28 U/L 13 - 39 Final 03:56 EDT 133 U/L 08/19/2024 ALK PHOS Above high 46 - 116 Final 03:56 EDT normal 08/19/2024 CALCIUM 8.5 mg/dl 8.5 - 10.1 Final 03:56 EDT TOTAL 08/19/2024 7.0 g/dl 6.4 - (more content not included)... Normal [facility] ED SUPER BILLon 08-19-2024 ED SUPER BILL [place] [address] [place] [address] [phone] 08/19/2024 Patient: CHARMAINE AVILA Sex: Female : 1990 Age: 34y Item Facility Professional Category Description Code Code Quantity Fee Total Drugs Normal Saline 535827 1 $0.00 $0.00 1000cc (716071) Nurse/E/M EMERGENCY 518319 1 $0.00 $0.00 DEPARTMENT VISIT HIGH/URGENT SEVERITY (16643-40) Nurse/IV/IM/Infusio ns Hydration 989712 2 $0.00 $0.00 additional hour (24364) Nurse/IV/IM/Infusio ns IVP initial 072222 1 $0.00 $0.00 (77618) Nurse/Procedures Respiratory 437265 1 $0.00 $0.00 therapy - inhalation (48622) Grand Total $0.00 1 of 2 [facility] Providers Min Farah D.O. Principal Diagnosis Influenza type A (exposure). ICD-10 Codes J09.x2: Influenza due to identified novel influenza A virus with other respiratory manifestations 2 of 2 Normal [facility] ED VISIT SUMMARYon ED VISIT SUMMARY Visit Overview Visit Overview [place] [address] [facility] [facility] [place] [address] [phone] 08/19/2024 Patient: CHARMAINE AVILA Sex: Female : 1990 Age: 34y 08/19/2024 06:42 AM EDT ED Arrival:02:32 08/19/2024 EDT Status:not Recent Travel:no Language:eng Adv Directive:No Isolation Status: Ethnicity:N Fall Risk:no risk Infectious Disease Exposure:no Measurements:5'7" / 170.2 Self-Harm Status:risk Sepsis Screen:negative cm 235.0 lb / 106.6 kg Chief Complaint:COUGH, FATIGUE, FEVER, HEADACHE, and MUSCLE ACHES ALLERGIES codeine Nubain Percocet Trulicity HOME MEDICATIONS None 1 of 3 Visit Overview PAST MEDICAL HISTORY / PROBLEMS Asthma Diabetes Mellitus Type 2 LNMP: Last normal menstrual period now. The patient is PAST SURGICAL HISTORY Cholecystectomy Tonsillectomy Tubal Ligation SOCIAL HISTORY Smoking status: Yes Alcohol use: No Drug use: No ED COURSE MEDICATIONS GIVEN IN EMERGENCY DEPARTMENT 03:13 08/19/24 Albuterol-Ipratropi um (DuoNeb) 3mg/0.5mg Neb Tx 3 mL 03:13 08/19/24 Ibuprofen (Motrin) PO 600 mg 03:16 08/19/24 Dexamethasone (Decadron) IVP 5 mg 03:17 08/19/24 IV NS 0.9 % 1000 mL 500 mL/hr 04:24 08/19/24 Cepacol Sore Throat-Cough Smitha 1 smitha IV SITE INFORMATION INTAKE OUTPUT REASSESMENT (most recent) 03:24 08/19/24. Post assessment. O2 saturation- 96 %. Heart rate: (133). Respiratory rate: (20). Decreased breath sounds in the bases bilaterally. Wheezes in the right lung base. VITAL SIGNS 2 of 3 Visit Overview First Vitals Last Vitals Temp 02:44 08/19/24 100.0 F Temp 05:27 08/19/24 BP 02:44 08/19/24 148/82 BP 05:08/19/24 132/83 HR 02:44 08/19/24 138 HR 05:08/19/24 124 RR 02:44 08/19/24 18 RR 05:27 08/19/24 O2 Sat 02:44 08/19/24 95% O2 Sat 05:27 08/19/24 Pain 02:44 08/19/24 8 Pain 05:08/19/24 ETCO2 02:44 08/19/24 ETCO2 05:27 08/19/24 GCS 02:44 08/19/24 GCS 05:08/19/24 RTS 02:44 08/19/24 RTS 05:08/19/24 PROCEDURES NURSING INTERVENTIONS Respiratory therapy LABS / STUDIES LABS / STUDIES ORDERED BNP CBC w Diff Chest 2V CMP D-Dimer EKG - ED Flu Swab (Influenzae AAg) Rapid COVID (SARS) ANTIGEN TEST Troponin-I CLINICAL IMPRESSION INFLUENZA TYPE A (EXPOSURE) 3 of 3 Normal [facility] ED VITALS FLOW SHEETon 08-19 ED VITALS FLOW SHEET Vitals Vital Sign Flow Sheet [address] [address] [phone] 08/19/2024 Patient: CHARMAINE AVILA Sex: Female : 1990 Age: 34y Measurements Wt: 106.6 kg, Ht/Esequiel: 67.0 in, BMI: 36.81 Measured Time BP MAP HR RR O2Sat ETCO2 Temp Pain GCS RTS 05:27 08/19/2024 132/83 90 124 05:08 08/19/2024 138 95% 05:03 08/19/2024 132 94% 04:58 08/19/2024 127 94% 04:53 08/19/2024 128 94% 04:50 08/19/2024 132/67 83 124 04:48 08/19/2024 126 89% 04:43 08/19/2024 123 89% 04:38 08/19/2024 126 89% 04:33 08/19/2024 134 93% 04:28 08/19/2024 136 92% 04:23 08/19/2024 131 94% 04:20 08/19/2024 116/61 80 142 03:58 08/19/2024 137 92% 03:53 08/19/2024 135 92% 1 of 2 Vitals Measured Time BP MAP HR RR O2Sat ETCO2 Temp Pain GCS RTS 03:52 08/19/2024 132/74 97 137 03:48 08/19/2024 139 93% 03:43 08/19/2024 141 96% 03:38 08/19/2024 143 94% 03:33 08/19/2024 141 97% 03:23 08/19/2024 141 97% 03:21 08/19/2024 141/84 103 133 03:13 08/19/2024 132 95% 03:08 08/19/2024 138 96% 03:03 08/19/2024 137 96% 02:58 08/19/2024 132 95% 02:53 08/19/2024 139 95% 02:48 08/19/2024 139 94% 02:46 08/19/2024 148/82 103 144 02:44 08/19/2024 148/82 104 138 18 95% 100.0 F 8 2 of 2 Normal [facility] INFLUENZA VIRUS RAPID A/Bon 08-19-2024 INFLUENZA VIRUS RAPID A/B INFLUENZA A NEGATIVE INFLUENZA B NEGATIVE INTERNAL NEG QC PASS INTERNAL POS QC PASS EXTERNAL QC DONE? YES SEND TO IC? NO A NEGATIVE TEST RESULT DOES NOT EXCLUDE INFECTION WITH INFLUENZA A OR B. THEREFORE, THE RESULTS OBTAINED FROM THIS FLU TEST SHOULD BE USED IN CONJUCTION WITH CLINICAL FINDINGS TO MAKE AN ACCURATE DIAGNOSIS. A POSITIVE RESULT DOES NOT RULE OUT CO-INFECTIONS WITH OTHER PATHOGENS OR IDENTIFY ANY SPECIFIC INFLUENZA A VIRUS SUBTYPE.CO-INFECTIO N WITH INFLUENZA A AND B IS RARE. IT IS RECOMMENDED THAT "DUAL POSITIVE" RESULTS BE CONFIRMED BY VIRAL CULTURE OR AN FDA-CLEARED INFLUENZA A AND B MOLECULAR ASSAY. INDIVIDUALS WHO HAVE RECEIVED NASALLY ADMINISTERED INFLUENZA A VACCINE MAY TEST POSITIVE IN COMMERCIALLY AVAILABLE INFLUENZA RAPID DIAGNOSTIC TESTS FOR UP TO THREE DAYS. RESULT CRITICAL? NO Normal [facility] Comment on above: Performed By: [id number] ####[facility],[address] [place], [place] [id number] NT-proBNPon 08-19-2024 Natriuretic peptide B (Bld) [Mass/Vol] 119 pg/mL Normal 0 - 125 [facility] Comment on above: Performed By: #### [id number] ####[facility],[address] [place] [id number] TROPONINon 08-19-2024 HS TROPONIN 4.8 pg/mL Normal 0.0 - 51.4 [facility] Comment on above: Performed By: [id number] #### [facility],[address] [place] [id number] CNOVon 08-05-2024 CNOV Office Visit (INTMWS) ---- CHARMAINE AVILA ([id number]) 1990 F Date Time Provider Department 08/05/24 11:00 AM FERCHO PEREZ INTZahraaWS During your visit today, we recorded the following information about you: Pulse Blood pressure Weight Height 105/minute 116/76 107.2 kg 1.71 m Fercho Perez APRN.[employer]PERATOR 08/05/2024 11:17 AM Signed - Complete your lab work today before leaving the clinic. - Continue taking Sertraline as needed for anxiety. - Continue taking Omeprazole daily for reflux and heartburn. - Refill your Omeprazole prescription at [facility]. - Refill your lidocaine patches prescription. - Refill your inhaler prescription. - Refill your allergy medication prescription. - Maintain your diabetic diet and monitor your blood sugar levels. - Schedule a breathing test for later this year. - Consider quitting smoking for your health and well-being. Fercho Perez APRN.[facility] 08/05/2024 3:18 PM Addendum Charmaine is a 34-year-old female with a history of type 2 diabetes, anxiety, and asthma, presenting for diabetes management and medication refills. Type 2 Diabetes Mellitus: - Not taking any antidiabetic medications due to concerns about transferring medication effects to her . - Stopped taking Trulicity after a previous loss, which she believes may have been related to the medication. - Not monitoring blood glucose levels at home. - Adhering to a diabetic diet, though occasionally consumes sweets due to cravings while . - Denies polyuria, polydipsia, polyphagia, blurry vision, or neuropathic symptoms. - Last eye exam at [facility] in [place]. - No recent lab work; plans to resume medication management after . Not check home glucose levels with glucometer or CGM. Anxiety: - Taking sertraline PRN, approximately 1-2 times per week for anxiety attacks. - Reports medication is effective within 10-15 minutes. - Avoids regular use due to concerns about transferring medication effects to her infant. - Denies need for counseling; attributes stress to managing two teenagers. Asthma: - Has two inhalers at home; uses them primarily during colds. - Requests refill for inhalers. Medication Refills: - Requests refills for lidocaine patches and allergy medication. - Taking omeprazole daily for reflux and heartburn; requests refill. - Not taking or multivitamins. Tobacco Use: - Smokes approximately half a pack of cigarettes per day. - Uses smoking as a stress relief method. - No current plans to quit smoking. Eyes: (-) blurred vision Neurological: (-) numbness or tingling Skin: (-) foot sores Psychiatric: (+) anxiety GENERAL: NAD, alert and oriented. SKIN: Unremarkable, no rash or skin lesions. HEAD: Normocephalic. EYES: PERRLA, EOMI, conjunctiva clear. EARS: External ears normal, canals clear, TM's normal. NOSE/SINUSES: Nares normal. Septum midline. OROPHARYNX: Lips, mucosa, and tongue normal, good dentition. No oral lesions noted. NECK: Supple, no lymphadenopathy, normal thyroid, no carotid bruits. LUNGS: Clear to auscultation bilaterally, no wheezes/rhonchi/ral es. HEART: Regular rate and rhythm, no murmurs. No ectopy. EXTREMITIES: Normal, no deformities, no skin discoloration, no edema. NEURO: Awake, alert and oriented x3, cranial nerves II-XII grossly intact, normal gait, no involuntary motions. SENSATION: Protective sensation intact in bilateral feet. 1. Encounter for immunization (Z23) - Patient declined vaccinations at this time due to concerns about medication transfer to the during . 2. Screening for diabetic retinopathy (Z13.5) - Patient follows up with [facility] in [place] for regular eye exams. 3. Asthma during (O99.519) - Patient has two inhalers at home; refilled inhaler prescription at [facility]. 4. Chronic right-sided low back pain with right-sided sciatica (M54.41) - Refilled lidocaine patches at [facility]. 5. 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 - No recent lab work; ordered lab tests to be completed today. - Patient is following a diabetic diet with occasional deviations. - No symptoms of neuropathy; monofilament test performed with normal sensation in feet. - Discussed the importance of medication management and monitoring blood glucose levels. 6. Generalized anxiety disorder (F41.1) - Patient is taking sertraline 1-2 times per week as needed for anxiety attacks. - Discussed the safety of medications during . 7. Gastro-esophageal reflux disease without esophagitis (K (more content not included)... Normal [facility] CNPNon 07-07-2024 CNPN Telephone (ENDOAL) ---- CHARMAINE AVILA ([id number]) 1990 F Date Time Provider Department 07/07/24 ADEEL RAMIREZ ENDOAL During your visit today, we recorded the following information about you: Adeel Ramirez DO 07/07/2024 10:36 AM Signed Please contact and offer pt appointment in August or September (f/u type 2 DM) Thanks Arlene Valladares 07/07/2024 1:31 PM Signed Spoke with patient, scheduled 10/18/2024 @ 11:20 am (virtual appointment) Allergies As of Date: 07/07/2024 Noted Allergy Reaction CODEINE 10/02/2020 14 - Other: See Comments JARDIANCE (EMPAGLIFLOZIN) 08/26/2021 5 - Intolerance Comments: Body aches, headaches earache NALBUPHINE 10/02/2020 11 - Vomiting OXYCODONE 03/22/2019 11 - Vomiting PERCOCET (OXYCODONE-ACETAMIN OPHEN)10/02/2020 11 - Vomiting METFORMIN 03/11/2023 6 - Diarrhea 8 - GI Upset Comments: Rapid release only-pt states OK to take ER Date Reviewed: 05/03/2024 Reviewed by: Val Beal, RN - Fully Assessed Reason for Visit: Appointment [186] Prescriptions as of 07/07/2024 - sertraline (ZOLOFT) 100 mg tablet Take 1.5 tablets by mouth every afternoon. - Blood-Glucose Sensor ([employer]at [employer] G7 SENSOR) stephanie Insert 1 sensor on the back of arm. Replace every 10 days as directed. - omeprazole (PRILOSEC) 40 mg capsule Take 1 capsule by mouth once daily. - M-ADAM PLUS 27 mg iron- 1 mg take 1 tablet by mouth once daily. - lidocaine (LIDODERM) 5 % APPLY 1 PATCH DIRECTED EVERY 24 HOURS. REMOVE OLD PATCH PRIOR TO PLACING NEW PATCH. LOCATION: LOW BACK - metFORMIN ER (GLUCOPHAGE XR) 500 mg 24 hr tablet Take 2 tablets by mouth two times a day with meals. - loratadine (CLARITIN) 10 mg tablet Take 1 tablet by mouth once daily as needed. - albuterol HFA (PROVENTIL HFA, VENTOLIN HFA) 90 mcg/actuation inhaler Inhale 2 Puffs as instructed every 4 hours as needed for wheezing/shortness of breath. - Fegkhseh-Sm-Xdt-Fe- FA tab Take 1 tablet by mouth once daily. - blood sugar diagnostic (Aequus TechnologiesUCH VERIO TEST STRIPS) test strip Use as instructed 4 times daily - lancets ([employer] DELICA LANCETS) 30 gauge Use as instructed 4 times daily - Blood-Glucose Meter (BLOOD GLUCOSE MONITORING) monitoring kit One touch. Use as instructed. Please use voucher Bin [id number]; PCN [facility]; Group [id number]; ID NOCHARGEMETR - Insulin [place], Disposable, (PEN NEEDLE) 32 gauge x 5/32" Use to inject insulin up to 4 times per day. - ondansetron orally disintegrating (ZOFRAN ODT) 4 mg disintegrating tablet Take 1 tablet by mouth every 6 hours as needed for nausea/vomiting. - Blood-Glucose Meter,Continuous (DEXCOM G7 HOME THEATRE TECHNICIAN) [facility] [place] Use to test blood sugar as directed. - alcohol swabs (ALCOHOL PADS) Apply 1 application to affected area once daily. - blood sugar diagnostic (BLOOD GLUCOSE TEST) test strip Test blood sugar(s) 3 times daily. Dx: Type 2 DM - Controlled E11.9 Insulin: Yes - fluticasone (FLONASE) 50 mcg/actuation nasal spray Use 1 [place] in each nostril once daily. As needed Problem List As Of Date 07/07/2024 Noted Resolved Anxiety state [F41.1] 04/12/2023 Mixed hyperlipidemia [E78.2] 03/11/2023 History of abdominal hernia [Z87.19] 10/02/2020 History of atrial fibrillation [Z86.79] 10/02/2020 History of asthma [Z87.09] 10/02/2020 10/14/2023 Anxiety and depression [F41.9, F32.A] 07/01/2022 Diagnosed: 03/11/2023 AMA (advanced maternal age) multigravida 35+, s*03/11/2023 03/31/2024 History of labor, current , fi*03/11/2023 Obesity affecting in first trimester *03/11/2023 History of gestational diabetes in prior pregna*03/11/2023 10/14/2023 History of trichomoniasis [Z86.19] 03/11/2023 PCOS (polycystic ovarian syndrome) [E28.2] 03/11/2023 11 weeks gestation of [Z3A.11] 03/11/2023 04/12/2023 Cervical cancer screening [Z12.4] 03/11/2023 History of premature rupture of membran*04/12/2023 premature rupture of membranes (PPROM) *04/12/2023 Hx of delivery, currently , sec*04/12/2023 Abnormal AFP3 test [R77.2] 04/15/2023 10/14/2023 Pre-existing type 2 diabetes mellitus during pr*09/16/2023 History of delivery of macrosomal infant [Z87.5*09/16/2023 Asthma during [O99.519, J45.909] 09/16/2023 Tobacco use disorder complicating , ch*09/16/2023 Constipation during in first trimeste*09/16/2023 10/30/2023 with uncertain dates in first trimest*09/16/2023 10/14/2023 Bacterial vaginitis [N76.0, B96.89] 10/15/2023 Incompetent cervix [N88.3] 10/30/2023 Heartburn during in second trimester *02/15/2024 Encounter Status:Closed by ARLENE GONZALEZ on 07/07/24 [facility] CNOVon 05-03-2024 CNOV Office Visit (PODIWS) ---- CHARMAINE AVILA ([id number]) 1990 F Date Time Provider Department 05/03/24 9:45 AM LIZETTE PIERCE PODIWS During your visit today, we recorded the following information about you: Val Beal, ОЛЕГ 05/03/2024 10:04 AM Signed Patient presents with: Left Foot - New, Nail Check Patient presents for toenail injury to left foot that occurred December 14. At this time left big toenail is and new nail growth noticed underneath. Left 3rd toenail also appears to have layering. Left 5th toenail has discoloration/bruis ing. Lizette Pierce 05/03/2024 10:04 AM Signed Consultation requested by Dr. Ramirez for an opinion regarding loosenig of left great toenail. My final recommendations will be communicated back to the requesting physician by way of shared Medical record or letter to requesting physician via US mail. Initial Podiatric Office Visit: Chief Complaint: This 34 year old female who presents with chief complaint:loosening of left great toenail HPI Patient presents to clinic for evaluation of left great toe States the left hallux nail is lifting off the base. She states she injured her toe in November after falling on gravel. She denies any pain in the toe or toenail. Patient is type two diabetic. Denies any numbness. Last A1c in December was 6.5 Patient currently smokes a 1/2 pack of cigarettes/day. Currently . PAIN EVALUATION No data found in the last 1 encounters. Hemoglobin A1C (%) Date Value 01/08/2024 6.5 10/14/2023 7.1 07/14/2023 6.6 03/11/2023 7.5 08/30/2022 6.6 06/25/2021 7.2 01/10/2021 9.0 10/02/2020 9.9 Hemoglobin A1C (POCT) (%) Date Value 08/30/2022 7.0 PCP: Junior Jeong MD PAST MEDICAL HISTORY Diagnosis Date AMA (advanced maternal age) multigravida 35+, second trimester 03/11/2023 Plans for NT scan and [id number]. Reviewed risks of AMA. Taking ASA 81 mg. Anxiety state Atrial fibrillation (HCC) Cardiac arrest (HCC) With subsequent A. fib after initiation of anesthesia June 2016 with tubal, converted with diltiazem after 11 hours, she follows with cardiology Constipation during in first trimester 09/16/2023 Reviewed Colace and increased hydration. Diabetes type 2, controlled ([facility]) 2015 GERD (gastroesophageal reflux disease) History of depression Mixed hyperlipidemia Morbid obesity ([facility]) Tobacco dependence Current Outpatient Medications Medication Sig sertraline (ZOLOFT) 100 mg tablet Take 1.5 tablets by mouth every afternoon. Blood-Glucose Sensor (DEXCOM G7 SENSOR) stephanie Insert 1 sensor on the back of arm. Replace every 10 days as directed. omeprazole (PRILOSEC) 40 mg capsule Take 1 capsule by mouth once daily. lidocaine (LIDODERM) 5 % APPLY 1 PATCH DIRECTED EVERY 24 HOURS. REMOVE OLD PATCH PRIOR TO PLACING NEW PATCH. LOCATION: LOW BACK ketotifen fumarate (ZADITOR) 0.025 % (0.035 %) ophthalmic solution Use 1 Drop in both eyes two times a day. As needed loratadine (CLARITIN) 10 mg tablet Take 1 tablet by mouth once daily as needed. albuterol HFA (PROVENTIL HFA, VENTOLIN HFA) 90 mcg/actuation inhaler Inhale 2 Puffs as instructed every 4 hours as needed for wheezing/shortness of breath. blood sugar diagnostic (ONETOUCH VERIO TEST STRIPS) test strip Use as instructed 4 times daily (Patient taking differently: Use as instructed 4 times daily For back up use only due to use of Dexcom) lancets (ONETOUCH DELICA LANCETS) 30 gauge Use as instructed 4 times daily (Patient taking differently: Use as instructed 4 times daily For back up use only due to use of Dexcom) Blood-Glucose Meter (BLOOD GLUCOSE MONITORING) monitoring kit One touch. Use as instructed. Please use voucher Bin [id number]; PCN [facility]; Group [id number]; ID NOCHARGEMETR (Patient taking differently: One touch. Use as instructed. Please use voucher Bin [id number]; N [facility]; Group [id number]; ID NOCHARGEMETR For back up use only due to use of Dexcom) Insulin [place], Disposable, (PEN NEEDLE) 32 gauge x 5/32" Use to inject insulin up to 4 times per day. (Patient taking differently: Use to inject insulin up to 4 times per day. For back up use only due to use of Dexcom) ondansetron orally disintegrating (ZOFRAN ODT) 4 mg disintegrating tablet Take 1 tablet by mouth every 6 hours as needed for nausea/vomiting. Blood-Glucose Meter,Continuous (DEXCOM G7 HOME THEATRE TECHNICIAN) [facility] [place] Use to test blood sugar as directed. alcohol swabs (ALCOHOL PADS) Apply 1 application to affected area once daily. blood sugar diagnostic (BLOOD GLUCOSE TEST) test strip Test blood sugar(s) 3 times daily. Dx: Type 2 DM - Controlled E11.9 Insulin: Yes (Patient taking differently: Test blood sugar(s) 3 times daily. Dx: Type 2 DM - Controlled E11.9 Insulin: Yes For back up use only due to use of Dexcom) fluticasone (FLONASE) 50 mcg/actuation nasal spray Use 1 [place] i (more content not included)... Normal [facility] 04-25-2024 JOHNY Telephone (CARMELAGYWM) ---- CHARMAINE AVILA ([id number]) 1990 F Date Time Provider Department 04/25/24 VASU GAXIOLA During your visit today, we recorded the following information about you: Vasu Gaxiola APRN.CNP 04/25/2024 3:03 PM Signed Please advise patient that she does not need an annual until next year but happy to see her if she has other concerns. visit 03/31/24 CELIA Patel Jennifer, RN 04/25/2024 3:13 PM Signed Patient notified. Appointment rescheduled. Rosaline Scott RN Allergies As of Date: 04/25/2024 Noted Allergy Reaction CODEINE 10/02/2020 14 - Other: See Comments JARDIANCE (EMPAGLIFLOZIN) 08/26/2021 5 - Intolerance Comments: Body aches, headaches earache NALBUPHINE 10/02/2020 11 - Vomiting OXYCODONE 03/22/2019 11 - Vomiting PERCOCET (OXYCODONE-ACETAMIN OPHEN)10/02/2020 11 - Vomiting METFORMIN 03/11/2023 6 - Diarrhea 8 - GI Upset Comments: Rapid release only-pt states OK to take ER Date Reviewed: 03/31/2024 Reviewed by: Vasu Gaxiola APRN.TIE UP WORKER - Fully Assessed Reason for Visit: Appointment [186] Prescriptions as of 04/25/2024 - sertraline (ZOLOFT) 100 mg tablet Take 1.5 tablets by mouth every afternoon. - Blood-Glucose Sensor ([employer] G7 SENSOR) stephanie Insert 1 sensor on the back of arm. Replace every 10 days as directed. - omeprazole (PRILOSEC) 40 mg capsule Take 1 capsule by mouth once daily. - M- PLUS 27 mg iron- 1 mg take 1 tablet by mouth once daily. - lidocaine (LIDODERM) 5 % APPLY 1 PATCH DIRECTED EVERY 24 HOURS. REMOVE OLD PATCH PRIOR TO PLACING NEW PATCH. LOCATION: LOW BACK - metFORMIN ER (GLUCOPHAGE XR) 500 mg 24 hr tablet Take 2 tablets by mouth two times a day with meals. - ketotifen fumarate (ZADITOR) 0.025 % (0.035 %) ophthalmic solution Use 1 Drop in both eyes two times a day. As needed - loratadine (CLARITIN) 10 mg tablet Take 1 tablet by mouth once daily as needed. - albuterol HFA (PROVENTIL HFA, VENTOLIN HFA) 90 mcg/actuation inhaler Inhale 2 Puffs as instructed every 4 hours as needed for wheezing/shortness of breath. - Twvohzxt-Bl-Aym-Fe- FA tab Take 1 tablet by mouth once daily. - blood sugar diagnostic (Aequus TechnologiesUCH VERIO TEST STRIPS) test strip Use as instructed 4 times daily - lancets (Epit[employer]TOUCH DELICA LANCETS) 30 gauge Use as instructed 4 times daily - Blood-Glucose Meter (BLOOD GLUCOSE MONITORING) monitoring kit One touch. Use as instructed. Please use voucher Bin [id number]; N [facility]; Group [id number]; ID NOCHARGEMETR - Insulin [place], Disposable, (PEN NEEDLE) 32 gauge x 5/32" Use to inject insulin up to 4 times per day. - ondansetron orally disintegrating (ZOFRAN ODT) 4 mg disintegrating tablet Take 1 tablet by mouth every 6 hours as needed for nausea/vomiting. - Blood-Glucose Meter,Continuous (DEXCOM G7 HOME THEATRE TECHNICIAN) [facility] [place] Use to test blood sugar as directed. - alcohol swabs (ALCOHOL PADS) Apply 1 application to affected area once daily. - blood sugar diagnostic (BLOOD GLUCOSE TEST) test strip Test blood sugar(s) 3 times daily. Dx: Type 2 DM - Controlled E11.9 Insulin: Yes - fluticasone (FLONASE) 50 mcg/actuation nasal spray Use 1 [place] in each nostril once daily. As needed Problem List As Of Date 04/25/2024 Noted Resolved Anxiety state [F41.1] 04/12/2023 Mixed hyperlipidemia [E78.2] 03/11/2023 History of abdominal hernia [Z87.19] 10/02/2020 History of atrial fibrillation [Z86.79] 10/02/2020 History of asthma [Z87.09] 10/02/2020 10/14/2023 Anxiety and depression [F41.9, F32.A] 07/01/2022 Diagnosed: 03/11/2023 AMA (advanced maternal age) multigravida 35+, s*03/11/2023 03/31/2024 History of labor, current , fi*03/11/2023 Obesity affecting in first trimester *03/11/2023 History of gestational diabetes in prior pregna*03/11/2023 10/14/2023 History of trichomoniasis [Z86.19] 03/11/2023 PCOS (polycystic ovarian syndrome) [E28.2] 03/11/2023 11 weeks gestation of [Z3A.11] 03/11/2023 04/12/2023 Cervical cancer screening [Z12.4] 03/11/2023 History of premature rupture of membran*04/12/2023 premature rupture of membranes (PPROM) *04/12/2023 Hx of delivery, currently , sec*04/12/2023 Abnormal AFP3 test [R77.2] 04/15/2023 10/14/2023 Pre-existing type 2 diabetes mellitus during pr*09/16/2023 History of delivery of macrosomal [Z87.5*09/16/2023 Asthma during [O99.519, J45.909] 09/16/2023 Tobacco use disorder complicating , ch*09/16/2023 Constipation during in first trimeste*09/16/2023 10/30/2023 with uncertain dates in first trimest*09/16/2023 10/14/2023 Bacterial vaginitis [N76.0, B96.89] 10/15/2023 Incompetent cervix [N88.3] 10/30/2023 Heartburn during in second trimester *02/15/2024 Encounter Status:Closed by ROSALINE SCOTT on (more content not included)... Normal [facility] Office Visiton 02-26-2024 Follow-up visit [id number] MargaritaCharmaine 1990 F Date Provider Department Center 02/26/2024 2718-RAJIV [facility]U [facility] WOM None Chart Close Cosign Required by: Kimber Olivares MD[[facility] No family history on file Level of Service:[id number] LA CARE VISIT (GE) Reason for Visit and Comments: Care [85] - BP and incision check Normal [facility] Progress Noteon 02-26-2024 Progress Note ---- Attestation signed by Kimber Olivares MD at 03/01/2024 9:36 PM [facility]: [facility] by the resident. I reviewed and agree with the care provided by the resident during or immediately following the visit including the patient's medical history, the resident's finding in the physical exam, patient's diagnosis and treatment plan. ---- Patient here today for BP check. Diagnosed with gHTN. Antihypertensive agent: None. Denies CP/SOB/HUITRON/VC/RUQ pain Lochia light. breast feeding. Contraception: S/p BTL Vitals: 02/26/24 1417 BP: 125/83 Pulse: 93 Temp: 36.6 ?C (97.9 ?F) Gen: No acute distress Cardio: RRR Pulm: CTA b/l Abdomen: No RUQ tenderness, pfannenstiel healing well without erythema or drainage Neuro: AOx3, no gross motor deficits Assessment and Plan: Diagnosis Plan 1. care and examination Postop care gHTN - BP NT today - Antihypertensive agent: None - Return precautions reviewed - Patient will follow up in 4 weeks for visit Follow up in about 27 days (around 03/24/2024) for . [facility] CARECOORDon 02-22-2024 CARECOORD Date: 02/22/2024 Name: Charmaine Avila : 1990 [facility] Patient Information Primary Caregiver: Self Accompanied by/Relationship: S/O;Family Marital Status: Single Support System: SO/Family Bahai/Cultural Factors: none Activities of Daily Living Communication: See demographics Living Arrangements Current Residence: Private residence Lives With: S/O; Family Support System: S/O; Family Income Information Income Source: Not Employed Financial Resource Strain How hard is it for you to pay for the very basics like food, housing, medical care and heating? N/A Housing Stability In the last 12 months, was there a time when you did not have a steady place to sleep or slept in a prison (including now)? No Transportation Needs Has the lack of Transportation kept you from medical appointments? No In the past 12 months, has the lack of transportation kept you from meetings, work, or from getting things needed for daily living? No Food Insecurity Within the past 12 months, have you worried that your food would run out before you got the money to buy more? No Stress Do you feel stress - tense, restless, nervous, or anxious, or unable to sleep at night because you mind is troubled all the time? Mood stable Referral To Financial Resources: N/A Community Resources: Admission folder given upon admission to PP Unit Social Work: N/A CLP: N/A Medical Information 34 year old admitted for PPROM at 29/4 weeks. delivery. in NICU at [facility]. Discharge Plan Home or Community Resources: Admission folder given upon admission to PP unit Equipment: N/A Education Given: Discussion on the A. B. C's of safe sleep. Always place your baby on his or her back to sleep, use a firm sleep surface and your baby should not sleep in an adult bed, on a couch or chair. Keep soft objects, toys and loose bedding out of your baby's sleep area. Reviewed depression. It is common to have blues. This is a normal response to many of the hormonal changes, stress and lack of sleep that go with raising a and physically recovering from the . Don't hesitate to talk to your provider with any concerns. There are resources in your home going booklet. To help prevent germs from spreading to you and your baby, make sure everyone washes their hands before they handle your . Avoid crowds, and keep infant away from sick people, anyone who is sick with a cough or fever, including family members. Post- warning signs information reviewed with patient per nurse with discharge Additional Information: Patient is independent and has insurance. She is prepared with her baby supplies. To be discharged to home. Denies any concerns at this time. Mental Health Services: Resources in discharge folder Equipment: Developmental Delay: N/A Children's Services: N/A Normal [facility] Laboratory - Chemistry and C hemistry - challengeon 02-22-2024 Glucose [Mass/Vol] 113 mg/dL High 70 - 100 mg/dL [facility] Glucose [Mass/Vol] 182 mg/dL High 70 - 100 mg/dL [facility] No Panel Informationon 02-21 Interpretation and review of laboratory results Abnormal [facility] Performed by: [facility], [address] [place] [id number] CLIA ID: [id number] [facility] Interpretation and review of laboratory results Abnormal [facility] Performed by: [facility], [address] [facility] [address] CLIA ID: [id number] [facility] Nursing Noteon 02-22-2024 Nursing Note Mom discharged via ambulation in good condition with all belongings to a private residence, accompanied by mother. All discharge instructions reviewed with patient who verbalizes understanding and denies further questions. Normal [facility] Progress Noteon 02-22-2024 Progress Note ---- Attestation signed by Jyoti Wiseman MD at 02/22/2024 11:29 AM I have personally performed a face to face diagnostic evaluation on this patient. In addition, I have reviewed the resident's/SHREDDED FILLER CUTTER OPERATOR/EVP STRATEGY's care plan and agree with those findings I have performed a substantive portion of the the medical decision making. My findings are as follows: Denies complaints Variable BG but reasonable Vitals: BP 136/78 Pulse 92 Temp 36.9 ?C (98.5 ?F) (Temporal) Resp 18 Ht 5' 8" (1.727 m) Wt 245 lb (111 kg) SpO2 97% Yes Comment: in NICU at main campus BMI 37.25 kg/m? Constitutional: Well developed Eyes: Conjunctiva clear, Pupils equal Neck: No masses, No thyromegaly Respiratory: No respiratory distress Cardiovascular System: No lower extremity edema Abdomen: obese Psychiatric: Conscious, alert, oriented to time, place and person A/P Type 2 diabetes with hyperglycemia without long-term insulin use. Patient was on insulin during Obesity Body mass index is 37.25 kg/m?. Steroid-induced hyperglycemia: Received steroids during and after delivery Continue NPH 6 units every morning and 10 units at bedtime Continue Humalog 5 units before meals with correction Patient can be discharged on current insulin doses along with metformin extended release 500 mg 2 tablets twice a day. Hopefully insulin requirements will decrease so she was instructed to follow-up closely with her seasonal greenery bundler Will avoid Trulicity for now because patient is planning for breast-feeding Patient was instructed to monitor blood glucose readings carefully after discharge I spent 35 minutes with the pt which involved in coordination of care, medical evaluation, review of records, and/or counseling of the pt regarding his/her condition/disease state/prognosis on the date of this note. Old records including available PCP, ED notes and or other specialists notes are reviewed. LABs and/or imaging are reviewed as detailed in the resident's/SHREDDED FILLER CUTTER OPERATOR/EVP STRATEGY's note ---- Department of Internal Medicine Division of Endocrinology, Diabetes, & Metabolism Endocrinology Note Patient Name: Charmaine Avila : 1990 AGE: 34 y.o. Room/Bed: [facility]/[address] Admission Date: 02/15/2024 Visit Date: 02/22/2024 Reason for Endocrine Consult: DM2 Provider/Team Requesting Consult: OB PCP: No primary care provider on file. 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 [facility] Rohan Ramirez ASSESSMENT: DM2 without alf insulin prior to preg S/P C/S 02/19/27 [id number] due to chorio Steroid induced hyperglycemia PLAN: Continue NPH 6 units q am Continue NPH 10 units q hs Continue Humalog to 5 units tid meals Continue Humalog Low SS Will need insulin on discharge with added home metformin ICU goal <180 GMF goal <150 POCT BG ACHS Hypoglycemia management per protocol Carb controlled diet ANTICIPATED ENDOCRINE HOME GOING RECOMMENDATIONS: Optimized for Discharge from Endocrine standpoint: yes Home Going Endocrine Rx Recommendations-- Continue NPH insulin pens at current doses Continue Humalog insulin pens at current doses Latrice pen needles [id number] Alcohol pads Resume home metformin XR 1g po bid Do not resume Trulicity Has Dexcom uses intermittently due to issues with site reaction to adhesive--not currently using Outpt Follow Up-- [facility] SUBJECTIVE/HPI: CHIEF COMPLAINT: Chief Complaint Patient presents with Rupture of Membranes Patient admitted after PPROM, received Betamethasone x 2 prior to delivery and received Decadron in [place] Patient sitting at side of bed states she wants to go see baby at NICU at [facility] after her shower, baby was not doing well yesterday, but improved now Patient states pain is managed Denies N/V Appetite is good BG this am checked after start of BF--will make insulin adjustments Ate BF had cream of wheat, BF stack Interval events: Bgl below currently stable Vss ra Baby doing well in NICU at [facility] She will breast and bottle feed Patient eating well, denies nausea vomiting abdominal pain Will need insulin on discharge, and careful blood sugar monitoring Will resume home metformin, stop Trulicity for home Type of DM: hx GDM all preg then DM2 2016 was on Trulicity and metformin August or September of this year off all meds and considered in remission--insulin started with planned preg Onset of DM: 2016 Home DM Medication Regimen: NPH , Humalog 26 units before meals and metformin 1000 mg BID DM control (last A1c/glucose data): Lab Results Component Value Date HGBA1C 7.4 (H) 02/15/2024 Denies retinopathy, neuropathy, nephropathy, CAD Glucose Date/Time Value Ref Range Status 02/22/2024 07:20 AM 182 (H) 70 - 100 mg/dL Final 02/21/2024 09:07 PM 23 (more content not included)... Normal [facility] Progress Note ---- Attestation signed by Katey Leggett DO at 02/22/2024 12:10 PM Hospital Care (Independent): I independently saw and evaluated the patient. I agree with the findings and plan of care as documented in the resident's note. Ms. Avila is a 34yo POD#2 s/p primary with inverted T incision + BS at 28w4d due to chiorioamnionitis and Cat 2 FHT. Patient is overall doing well and desires discharge as baby is at [facility]. Notes that baby is doing well, being treated for Ecoli sepsis. Patient states that pain is under control, has voided, had BM x 2. Notes that Endocrinology has been by and states she is stable for discharge from their standpoing. VSS. Gen: NAD alert and oriented Agree with physical exam findings as noted Patient is stable for discharge home. She is showing no signs of infection, vital signs are stable. Awaiting endocrinology recommendations on medications to go home with. Will do [id number] as patient lives over an hour from here and plans to go to [facility] to be with baby. Patient has a BP cuff and discussed follow-up for BP and incision check within the week. She will likely follow-up with primary OBGYN regarding care after this. All questions were answered to her satisfaction. Reviewed that blood pressure parameters would be provided in her discharge paperwork as well. ---- Note- POST OPERATIVE DAY # 2 Charmaine Avila is a 34 y.o. who was seen & examined today. Her was complicated by: Patient Active Problem List Diagnosis Premature rupture of membranes Adjustment reaction with anxiety DAVI (generalized anxiety disorder) Today she is doing well without any chief complaint. Her lochia is light. She denies Headache, Chest Pain, Vision Changes, and Shortness of Breath. She is ambulating well. Flatus present. Bowel movement present. Voiding spontaneously . She is tolerating solids. Pain is controlled yes. Vital Signs: Vitals: 02/21/24 0020 02/21/24 0316 02/21/24 0754 02/21/241950 BP: 121/75 (!) 123/53 124/68 (!) 130/58 BP Location: Right arm Right arm Left arm Patient Position: Lying Lying Lying Pulse: 81 68 84 85 Resp: 18 18 16 18 Temp: 36.3 ?C (97.3 ?F) 36.2 ?C (97.2 ?F) 36.2 ?C (97.1 ?F) 36.6 ?C (97.9 ?F) TempSrc: Temporal Temporal Temporal Temporal SpO2: 100% 98% 97% 96% Weight: Height: Urine Input & Output last 24hrs: No intake or output data in the 24 hours ending 02/22/24 0552 Physical Exam: GENERAL APPEARANCE: alert, well appearing, in no apparent distress ABDOMEN : benign, appropriately tender postoperatively, hernia appreciated, soft, no guarding, no rebound EXTREMITIES: no redness or tenderness in the calves or thighs, no edema NEUROLOGIC: alert, oriented, normal speech, no focal findings or movement disorder noted UTERUS : normal size, well involuted, firm, non-tender Desc; incision: Silverlon dressing in place Labs: Lab Results Component Value Date WBC 17.4 (H) 02/19/2024 HGB 10.6 (L) 02/21/2024 HCT 33.1 (L) 02/19/2024 MCV 85.1 02/19/2024 PLT 202 02/19/2024 LABOR DELIVERY ??? SCD's ONLY (labor through ambulation) SCD's PLUS Prophylactic Anticoagulation until discharge SCD's PLUS Prophylactic Anticoagulation for 6 weeks SCD's PLUS Therapeutic Anticoagulation for 6 weeks Vaginal Delivery [] BMI >= 40 kg/m2 Delivery All patients Vaginal Delivery [] BMI >= 40 kg/m2 AND [] Antepartum hospitalization >= 72 hours within the past month Delivery 1 Major Risk Factor: [x] BMI >= 35 kg/m2 [] Low Risk Thrombophilia [] PPH+RBCs, IR, or operation [x] Infection+Antibioti cs [] Antepartum hospitalization >= 72 hours within the past month [] PMH: Sickle Cell, SLE, Cardiac Dz, Active IBD, Active Cancer, Nephrotic Syndrome OR 2 Minor Risk Factors: [] Multiple gestation [] Age > 40 [] PPH >= 1,000cc [] (+)FMH of VTE [] Smoker [] Preeclampsia [] BMI >= 40 kg/m2 AND [] Low Risk Thrombophilia OR ANY OF THE FOLLOWING: [] High Risk Thrombophilia without prior VTE [] Low Risk Thrombophilia with (+)FMH of VTE [] Any single prior VTE ANY OF THE FOLLOWING: [] Already on LMWH/UFH [] Multiple prior VTE [] High Risk Thrombophilia with prior VTE Low Risk Thrombophilia: FVL (heterozygous), Prothrombin (heterozygous), Protein C, Protein S High Risk Thrombophilia: FVL (homozygous), Prothrombin (homozygous), FVL+Prothrombin (heterozygous), Antithrombin III, APLS Assessment/Plan: Charmaine Avila is a 34 y.o. POD # 2 s/p PLTCS + T Incision + Bilateral Salpingectomy Postpart (more content not included)... Normal [facility] 42on 02-21-2024 42 Patient called for observation of pumping session. Flange size measured during visit. 17mm left nipple, 18 mm right nipple. 22.5 mm flange inserts given. Observation of pumping session during visit. Reviewed feeding plan and goals. Reviewed pump operation, settings frequency and duration. Discussed milk storage guidelines and cleaning of breast pump parts. Towels, basin and dish soap provided to pt for cleaning purposes. All questions answered. Pt verbalizes understanding, and denies questions. Shown section of "Taking Care of Yourself and Baby' Booklet. Reviewed milk storage guidelines. Discussed engorgement, plugged ducts and mastitis. Patient encouraged to seek help [facility] for any concerns. phone number and [facility] information shared from booklet. Mom voiced understanding. No further questions. Normal [facility] 42 Initial visit with . This is patient's fourth infant. Patient exclusively pumped for 6 months with her last infant. Patient to be set-up with rental breast pump for home from [facility]. Patient has been pumping and seeing drops of colostrum. Patient states pumping has been uncomfortable. Scabs noted on right areola. Encouraged patient to call before next pumping session for observation and flange sizing. Patient verbalized understanding. Patient shown how to call for LC on wall touch pad. Normal [facility] HEMOGLOBINon 02-21-2024 Hemoglobin (Bld) [Mass/Vol] 10.6 g/dL Low 11.7-16.0 [facility] Comment on above: Order Comment: POD # 1; if Hemoglobin less than 8 or greater than 3gm drop from admission, notify MD and repeat as ordered, Performed By: #### L [id number] ####Solar System Installer: DAPHNEY ORELLANA ([id number])[facility] ([facility])[address] [place] [address] Hemoglobin (Bld) [Mass/Vol]O rdered By: Teodora Stout on 02-21-2024 Interpretation and review of laboratory results Abnormal [facility] Laboratory - Chemistry and C hemistry - challengeon 02-21-2024 Glucose [Mass/Vol] 230 mg/dL High 70 - 100 mg/dL [facility] Glucose [Mass/Vol] 186 mg/dL High 70 - 100 mg/dL [facility] Glucose [Mass/Vol] 151 mg/dL High 70 - 100 mg/dL [facility] Glucose [Mass/Vol] 154 mg/dL High 70 - 100 mg/dL [facility] Laboratory - Hematology and Cell countsOrdered By: Teodora Stout on 02-21-2024 Hemoglobin (Bld) [Mass/Vol] 10.6 g/dL Low 11.7 - 16.0 g/dL [facility] No Panel Informationon 02-20 Interpretation and review of laboratory results Abnormal [facility] Performed by: [facility], [address] [place] [address] CLIA ID: [id number] [facility] Interpretation and review of laboratory results Abnormal [facility] Performed by: [facility], [address] [place] [id number] CLIA ID: [id number] [facility] Interpretation and review of laboratory results Abnormal [facility] Performed by: [facility], [address] [place] [address] CLIA ID: [id number] [facility] Interpretation and review of laboratory results Abnormal [facility] Performed by: Raman Silva [facility], [address], [place] [address] CLIA ID: [id number] [facility] Progress Noteon 02-21-2024 Progress Note ---- Attestation signed by Jyoti Wiseman MD at 02/21/2024 9:40 AM I have personally performed a face to face diagnostic evaluation on this patient. In addition, I have reviewed the resident's/SHREDDED FILLER CUTTER OPERATOR/EVP STRATEGY's care plan and agree with those findings I have performed a substantive portion of the the medical decision making. My findings are as follows: Patient has history of type 2 diabetes Before patient was on Trulicity 0.75 mg weekly and metformin extended release 500 mg 2 tablets twice a day She stopped Trulicity before her She continues to take metformin XR 500 mg 2 tablets twice a day and started NPH and Humalog Status post She visits her baby at the main campus of [facility] She is planning for breast-feeding Received steroids after surgery Has Dexcom at home She currently does not have a sensor on Vitals: BP 124/68 Pulse 84 Temp 36.2 ?C (97.1 ?F) (Temporal) Resp 16 Ht 5' 8" (1.727 m) Wt 245 lb (111 kg) SpO2 97% Yes BMI 37.25 kg/m? Constitutional: Well developed Eyes: Conjunctiva clear, Pupils equal Neck: No masses, No thyromegaly Respiratory: No respiratory distress Cardiovascular System: No lower extremity edema Abdomen: obese Psychiatric: Conscious, alert, oriented to time, place and person A/P Type 2 diabetes with hyperglycemia without long-term insulin use. Patient was on insulin during Obesity Body mass index is 37.25 kg/m?. Steroid-induced hyperglycemia: Received steroids during and after delivery Expected blood glucose readings will improve Continue NPH 6 units every morning and 10 units at bedtime Decrease Humalog to 5 units before meals with correction I am hoping that patient will require less insulin and be discharged on metformin extended release 500 mg 2 tablets twice a day Will avoid Trulicity for now because patient is planning for breast-feeding Patient was instructed to monitor blood glucose readings carefully after discharge I spent 35 minutes with the pt which involved in coordination of care, medical evaluation, review of records, and/or counseling of the pt regarding his/her condition/disease state/prognosis on the date of this note. Old records including available PCP, ED notes and or other specialists notes are reviewed. LABs and/or imaging are reviewed as detailed in the resident's/SHREDDED FILLER CUTTER OPERATOR/EVP STRATEGY's note ---- Department of Internal Medicine Division of Endocrinology, Diabetes, & Metabolism Endocrinology Note Patient Name: Charmaine Avila : 1990 AGE: 34 y.o. [facility] Admission Date: 02/15/2024 Visit Date: 02/21/2024 Reason for Endocrine Consult: DM2 Provider/Team Requesting Consult: OB PCP: No primary care provider on file. 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 CCJolene Ramirez ASSESSMENT: DM2 without intermediate school teacher insulin prior to preg S/P C/S 02/19/27 28w4d due to chorio Steroid induced hyperglycemia PLAN: Continue NPH 6 units q am Continue NPH 10 units q hs Decrease Humalog to 5 units Continue Humalog Low SS ICU goal <180 GMF goal <150 POCT BG ACHS Hypoglycemia management per protocol Carb controlled diet ANTICIPATED ENDOCRINE HOME GOING RECOMMENDATIONS: Optimized for Discharge from Endocrine standpoint: No Home Going Endocrine Rx Recommendations-- TBD Has Dexcom uses intermittently due to issues with site reaction to adhesive--not currently using Outpt Follow Up-- [facility] SUBJECTIVE/HPI: CHIEF COMPLAINT: Chief Complaint Patient presents with Rupture of Membranes Patient admitted after PPROM, received Betamethasone x 2 prior to delivery and received Decadron in [place] Patient sitting at side of bed states she wants to go see baby [facility], baby was not doing well yesterday, but improved now Patient states pain is managed Denies N/V Appetite is good BG this am checked after start of BF--will make insulin adjustments Ate BF had cream of wheat, BF stack Type of DM: hx GDM all preg then DM2 2015 was on Trulicity and metformin August or September of this year off all meds and considered in remission--insulin started with planned preg Onset of DM: 2016 Home DM Medication Regimen: NPH , Humalog 26 units before meals and metformin 1000 mg BID DM control (last A1c/glucose data): Lab Results Component Value Date HGBA1C 7.4 (H) 02/15/2024 Denies retinopathy, neuropathy, nephropathy, CAD Glucose Date/Time Value Ref Range Status 02/21/2024 07:25 AM 154 (H) 70 - 100 mg/dL Final 02/20/2024 09:38 PM 207 (H) 70 - 100 mg/dL Final 02/20/2024 06:42 PM 188 (H) 70 - 100 mg/dL Final 02/20/2024 05:19 PM 208 (H) 70 - 100 mg/dL Final 02/20/2024 03:15 PM 200 (H) 70 - 100 mg/dL Final 02/20/2024 09:04 AM 305 (H) 70 (more content not included)... [facility] Progress Note ---- Attestation signed by Emani Encinas DO at 02/21/2024 3:09 PM Hospital Care (Independent): I independently saw and evaluated the patient. I agree with the findings and plan of care as documented in the resident's note. ---- Note- POST OPERATIVE DAY # 1 Charmaine Avila is a 34 y.o. who was seen & examined today. Her was complicated by: Patient Active Problem List Diagnosis Premature rupture of membranes Adjustment reaction with anxiety DAVI (generalized anxiety disorder) Today she is doing well without any chief complaint. Her lochia is light. She denies Headache, Chest Pain, Vision Changes, and Shortness of Breath. She is ambulating well. Flatus absent. Bowel movement absent. Voiding spontaneously . She is tolerating solids. Pain is controlled yes. Vital Signs: Vitals: 02/20/24 1512 02/20/24 1939 02/21/24 0020 02/21/24 0316 BP: 129/75 109/69 121/75 (!) 123/53 BP Location: Right arm Right arm Right arm Right arm Patient Position: Lying Sitting Lying Lying Pulse: 88 84 81 68 Resp: 20 18 18 18 Temp: 36.3 ?C (97.3 ?F) 36.7 ?C (98.1 ?F) 36.3 ?C (97.3 ?F) 36.2 ?C (97.2 ?F) TempSrc: Temporal Temporal Temporal Temporal SpO2: 96% 98% 100% 98% Weight: Height: Urine Input & Output last 24hrs: No intake or output data in the 24 hours ending 02/21/24 0633 Physical Exam: GENERAL APPEARANCE: alert, well appearing, in no apparent distress ABDOMEN : benign non-tender, without masses or organomegaly palpable; supra-umbilical tenderness at location of patients hernia, + bowel sounds in all four quadrants EXTREMITIES: no redness or tenderness in the calves or thighs, no edema NEUROLOGIC: alert, oriented, normal speech, no focal findings or movement disorder noted UTERUS : normal size, well involuted, firm, non-tender Desc; incision: Silverlon in place Labs: Lab Results Component Value Date WBC 17.4 (H) 02/19/2024 HGB 11.4 (L) 02/19/2024 HCT 33.1 (L) 02/19/2024 MCV 85.1 02/19/2024 PLT 202 02/19/2024 O Antibody Screen: No results found for: LABANTI No results found for: "RUBELLAIGG" LABOR DELIVERY ??? SCD's ONLY (labor through ambulation) SCD's PLUS Prophylactic Anticoagulation until discharge SCD's PLUS Prophylactic Anticoagulation for 6 weeks SCD's PLUS Therapeutic Anticoagulation for 6 weeks Vaginal Delivery [] BMI >= 40 kg/m2 Delivery All patients Vaginal Delivery [] BMI >= 40 kg/m2 AND [] Antepartum hospitalization >= 72 hours within the past month Delivery 1 Major Risk Factor: [] BMI >= 35 kg/m2 [] Low Risk Thrombophilia [] PPH+RBCs, IR, or operation [] Infection+Antibioti cs [] Antepartum hospitalization >= 72 hours within the past month [] PMH: Sickle Cell, SLE, Cardiac Dz, Active IBD, Active Cancer, Nephrotic Syndrome OR 2 Minor Risk Factors: [] Multiple gestation [] Age > 40 [] PPH >= 1,000cc [] (+)FMH of VTE [] Smoker [] Preeclampsia [] BMI >= 40 kg/m2 AND [] Low Risk Thrombophilia OR ANY OF THE FOLLOWING: [] High Risk Thrombophilia without prior VTE [] Low Risk Thrombophilia with (+)FMH of VTE [] Any single prior VTE ANY OF THE FOLLOWING: [] Already on LMWH/UFH [] Multiple prior VTE [] High Risk Thrombophilia with prior VTE Low Risk Thrombophilia: FVL (heterozygous), Prothrombin (heterozygous), Protein C, Protein S High Risk Thrombophilia: FVL (homozygous), Prothrombin (homozygous), FVL+Prothrombin (heterozygous), Antithrombin III, APLS Assessment/Plan: Charmaine Avila is a 34 y.o. POD # 1 s/p Primary LTCS + T incision, Bilateral Salpinectomy Care - Doing well, VSS - Boy at [facility] - both, breast and bottle feeding - Contraception: S/p BTL - Encourage ambulation and use of incentive spirometer - D/C torres catheter and saline lock IV on POD #1 - Postop Hb pending - VTE Prophylaxis: Prophylactic Dosing until Discharge Chorioamnionitis - Admitted to for PPROM and then was diagnosed with Chorioamnionitis, given the diagnosis and Cat II, she delivered early - s/p Zosyn x2 - No fundal tenderness this AM - Afebrile overnight T2DM - Endo following and managing - Current regimen: NPH 6/10, Log 9u with LDSS - BGTs elevated Hx Hernia - Has a known hernia - Was tender on palpation this AM - Reports it gets tender sometimes and then gets better on its own - + Bowel sounds - Has not passed flatus, tolerating PO without nausea or vomiting - Will continue to monitor closely gHTN - Normotensive overnight - PreE labs WNL - Asymptomatic this AM Disposition: Continue current care Based on my clinical assessment, this patient is s (more content not included)... [facility] Consulton 02-20-2024 Consult Department of Internal Medicine Division of Endocrinology, Diabetes, & Metabolism Endocrinology Note Patient Name: Charmaine Avila : 1990 AGE: 34 y.o. [facility] Admission Date: 02/15/2024 Visit Date: 02/20/2024 Reason for Endocrine Consult: DM2 Provider/Team Requesting Consult: OB PCP: No primary care provider on file. 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 [facility] Rohan Ramirez ASSESSMENT: DM2 without intermediate school teacher insulin prior to preg S/P C/S 02/19/27 28w4d due to chorio Steroid induced hyperglycemia PLAN: Continue NPH 6 units q am NPH 10 units q hs Humalog 9 units Humalog Low SS ICU goal <180 GMF goal <150 POCT BG ACHS Hypoglycemia management per protocol Carb controlled diet ANTICIPATED ENDOCRINE HOME GOING RECOMMENDATIONS: Optimized for Discharge from Endocrine standpoint: No Home Going Endocrine Rx Recommendations-- TBD Has Dexcom uses intermittently due to issues with site reaction to adhesive--not currently using Outpt Follow Up-- [facility] SUBJECTIVE/HPI: CHIEF COMPLAINT: Chief Complaint Patient presents with Rupture of Membranes Patient admitted after PPROM, received Betamethasone x 2 prior to delivery and received Decadron in [place] Patient resting in bed, states she wants to go see baby at NICU at [facility] but per nursing torres is in until 1300 Patient states pain is managed Denies N/V Ate BF had cream of wheat, eggs, saus Type of DM: hx GDM all preg then DM2 2016 was on Trulicity and metformin August or September of this year off all meds and considered in remission--insulin started with planned preg Onset of DM: 2016 Home DM Medication Regimen: NPH , Humalog 26 units before meals and metformin 1000 mg BID DM control (last A1c/glucose data): Lab Results Component Value Date HGBA1C 7.4 (H) 02/15/2024 Denies retinopathy, neuropathy, nephropathy, CAD Glucose Date/Time Value Ref Range Status 02/20/2024 09:04 AM 305 (H) 70 - 100 mg/dL Final Comment: Caregiver Notified; 02/20/2024 05:20 AM 223 (H) 70 - 100 mg/dL Final 02/19/2024 05:22 PM 99 70 - 100 mg/dL Final 02/19/2024 04:08 PM 98 70 - 100 mg/dL Final 02/19/2024 02:02 PM 116 (H) 70 - 100 mg/dL Final 02/19/2024 11:56 AM 118 (H) 70 - 100 mg/dL Final Review of Systems Constitutional: Positive for fatigue. Cardiovascular: Negative for leg swelling. Endocrine: Positive for polydipsia. Negative for polyphagia and polyuria. Neurological: Negative for numbness. All other systems reviewed and are negative. ROS negative except for those mentioned in HPI. OBJECTIVE: Vitals: 02/20/24 0023 02/20/24 0026 02/20/24 0027 02/20/24 05 BP: 135/67 146/69 146/69 122/69 Pulse: 93 96 100 85 Resp: 16 16 18 Temp: 37.3 ?C (99.1 ?F) 37 ?C (98.6 ?F) 36.7 ?C (98 ?F) TempSrc: Oral Oral Oral SpO2: 98% 97% 95% Weight: Height: Physical Exam Vitals reviewed. Constitutional: General: She is not in acute distress. Appearance: Normal appearance. She is obese. HENT: Head: Normocephalic. Eyes: Pupils: Pupils are equal, round, and reactive to light. Cardiovascular: Rate and Rhythm: Normal rate and regular rhythm. Pulses: Normal pulses. Heart sounds: Normal heart sounds. Pulmonary: Effort: Pulmonary effort is normal. Breath sounds: Normal breath sounds. Abdominal: General: Bowel sounds are normal. Genitourinary: Comments: Torres intact Musculoskeletal: General: No swelling. Normal range of motion. Cervical back: Normal range of motion. Skin: General: Skin is warm and dry. Comments: Dressing to abd inc clean and dry Neurological: Mental Status: She is alert and oriented to person, place, and time. Psychiatric: Mood and Affect: Mood normal. Behavior: Behavior normal. 24 hour intake/output: Intake/Output Summary (Last 24 hours) at 02/20/2024 0908 Last data filed at 02/20/2024 0434 Gross per 24 hour Intake 1000 ml Output 2710 ml Net -1710 ml Diet: Adult diet Regular Medications (as per EMR): HomeMeds: Current Outpatient Medications Medication Instructions aspirin 81 mg, Oral, Daily insulin glargine (LANTUS) 25 Units, SubCUTAneous, Nightly Insulin Lispro (HUMALOG) 24 Units, SubCUTAneous, 3 times daily with meals Loratadine-Pseudoep hedrine (PX ALLERGY RELIEF D, LORATID, PO) Oral metFORMIN (OSM) (FORTAMET) 1,000 mg, Oral, 2 times daily with meals, Do not crush, chew, or split. omeprazole OTC (PRILOSEC OTC) 20 mg, Oral, Daily before breakfast, Do not crush, chew, or split. MV-Min-Fe Fum-FA-DHA ( 1 PO) Oral sertraline (ZOLOFT) 100 mg, Oral, Daily Scheduled Meds:enoxaparin, 60 mg, SubCUTAneous, Daily ferrous sulfate, 325 mg, Oral, BID WC [START ON 02/21/2024] ibuprofen, 600 mg, Oral, q6h [START ON 02/21/2024] influenza, 0.5 mL, IntraMUSCular, Once insulin lispro, 0-6 Units, SubCUTAneous, TID WC And insulin lispro, 0-6 Units, SubCUTAneous, Nightly insulin lispro, 9 Units, SubCUTAneous, TID (more content not included)... Normal [facility] ECG 12-LEADon 02-20-2024 ECG 12-LEAD IMPRESSION: Sinus tachycardia Electronically Signed On 02-20-2024 09:31:11 EDT by Crow Dickinson Normal [facility] Hemoglobin F Kleihauer-Betke method Ql (Bld)Ordered By: Obie Salcido on 02-20-2024 Pt is rh pos and not a candidate for rhig [facility] KLEIHAUER-BETKE STAINon 01-24 NUM WONG 8 Normal [facility] Comment on above: Performed By: #### L [id number] ####Solar System Installer: DAPHNEY ORELLANA ([id number])[facility]OD [facility] ([facility])[address] [place] [address] PERCENT CELLS 0.00 % Normal [facility] Comment on above: Performed By: #### L [id number] ####Solar System Installer: DAPHNEY ORELLANA ([id number])[facility] ([facility])[address] [place] [address] RBC (Bld) [#/Vol] 0 10*6/uL Normal [facility] Comment on above: Performed By: #### L [id number] ####Solar System Installer: DAPHNEY ORELLANA ([id number])[facility]OD [facility] ([facility])[address] [place] [address] TOTAL ADULT RBC 4000 Normal [facility] Comment on above: Performed By: #### L [id number] ####Solar System Installer: DAPHNEY ORELLANA ([id number])[facility] HOSPITAL)[address] [place] [address] VIALS OF RHOGAM 0 Normal [facility] Comment on above: Result Comment: ROYAL Frias COMMENTS: Pt is rh pos and not a candidate for rhig Performed By: #### L [id number] ####Solar System Installer: DAPHNEY ORELLANA ([id number])[facility] ([facility])[address] [place] [address] Laboratory - Chemistry and C hemistry - challengeon 02-20-2024 Glucose [Mass/Vol] 207 mg/dL High 70 - 100 mg/dL [facility] Glucose [Mass/Vol] 188 mg/dL High 70 - 100 mg/dL [facility] Glucose [Mass/Vol] 208 mg/dL High 70 - 100 mg/dL [facility] Glucose [Mass/Vol] 200 mg/dL High 70 - 100 mg/dL [facility] Glucose [Mass/Vol] 305 mg/dL High 70 - 100 mg/dL [facility] Comment on above: Caregiver Notified; Glucose [Mass/Vol] 223 mg/dL High 70 - 100 mg/dL [facility] Laboratory - Hematology and Cell countsOrdered By: Obie Salcido on 02-20-2024 Hemoglobin F Kleihauer-Betke method Ql (Bld) 0 [facility] Hemoglobin F Kleihauer-Betke method Ql (Bld) 4000 [facility] Hemoglobin F Kleihauer-Betke method Ql (Bld) 8 [facility] Hemoglobin F Kleihauer-Betke method Ql (Bld) 0.00 % [facility] No Panel Informationon 02-19 Interpretation and review of laboratory results Abnormal [facility] Performed by: [facility], [address] [place] [address] CLIA ID: [id number] [facility] Interpretation and review of laboratory results Abnormal [facility] Performed by: [facility], [address] [place] [address] CLIA ID: [id number] [facility] Interpretation and review of laboratory results Abnormal [facility] Performed by: [facility], [address] [place] [address] CLIA ID: [id number] [facility] Interpretation and review of laboratory results Abnormal [facility] Performed by: [facility], [address] [place] [address] CLIA ID: [id number] [facility] Sinus tachycardia Electronically Signed On 02-20-2024 09:31:11 EDT by Crow Sutton MD - 02/20/2024 IMPRESSION: Sinus tachycardia Electronically Signed On 02-20-2024 09:31:11 EDT by Crow Dickinson [facility] Interpretation and review of laboratory results Abnormal [facility] Performed by: [facility], [address] [place] [address] CLIA ID: [id number] [facility] Interpretation and review of laboratory results Abnormal [facility] Performed by: [employer] [facility], [address] [place], [place] [address] [address] CLIA ID: [id number] [employer] No Panel InformationOrdered By: Crow Dickinson on 02-20-2024 P [place] 38 degrees [employer] [facility] Work Phone: LA Interval 135 ms [facility] Work Phone: QRS [place] 38 degrees [employer] [facility] Work Phone: QRSD Interval 79 ms [employer] [facility] Work Phone: QT Interval 323 ms [employer] [facility] Work Phone: QTC Interval 424 ms [employer] [facility] Work Phone: T Wave [place] 28 degrees [employer] [facility] Work Phone: [employer] [facility] Work Phone: Nursing Noteon 02-20-2024 Nursing Note Secure message to OB Residents - "pt has returned from [facility] [place] - she said baby RN wants OB to know that baby has E.Coli in his blood in case we need to treat mom". Normal [facility] Nursing Note Pt left unit via BW/C with to [facility] to visit baby. RU order received and paperwork signed. Normal [facility] Nursing Note Late Entry due to pt care: 0525: RN obtained pt's fasting BGT. Pt's fasting BGT 223. RN notified Dr. Siegel via secure chat regarding pt's BGT. Per Dr. Siegel ok for RN to treat pt's BGT of 223 with insulin using the sliding scale this morning. 0634: RN administered 2 units of Humalog using sliding scale to treat the pt's BGT of 223. Normal [facility] Op Noteon 02-20-2024 Op Note ---- Attestation signed by Marilyn Mendoza MD at 02/20/2024 5:58 AM Procedures or Surgery: I was present for all wheeler elements of the procedure or surgery as described in the resident note. ---- Patient: Charmaine Avila : 1990 Date of Procedure: 02/20/24 Principal Problem: Premature rupture of membranes Active Problems: Adjustment reaction with anxiety DAVI (generalized anxiety disorder) Pre-operative Diagnosis: 34 y.o. female 28w4d GA Unscheduled Primary PPROM Chorioamnionitis T2DM gHTN Obesity Asthma Desires Permanent Sterilization Post-operative Diagnosis: Same, Hemorrhage Procedure: Primary low transverse section with T-incision, Bilateral Salpingectomy Surgeon: Dr. Marilyn Mendoza Political Geographer(s): Dr. Michael Siegel Anesthesia: Spinal anesthesia, Duramorph, TAP Block Antibiotics: 2 g cefazolin Vaginal Prep (Chlorhexidine): No Total IV Fluids/Blood Products: 2000 ml crystalloid Urine Output: 350 ml Estimated Blood Loss: 1000 ml Quantitative Blood Loss: 1060 ml Drains: Torres Catheter Specimens: Cord Blood, Cord Gases, Bilateral Fallopian Tubes Instrument and Sponge Count: Correct x 2 Complications: hemorrhage secondary to uterine atony and uterine incision requiring T incision Medications: 1g TXA intraoperatively Condition: Stable, transferred to post anesthesia recovery Findings: The uterus, fallopian tubes and ovaries appeared normal. There were no adhesions present. The amnionitic fluid appeared clear. Information: Weight: 1314 g Position: Cephalic Description: Normal INDICATION FOR PROCEDURE: Patient admitted to Labor and Delivery for PPROM. Patient developed fundal tenderness, tachycardia, and increasing WBC concerning for chorioamnionitis. Descision made to proceed with delivery. Patient offered contraction stress test with induction or primary section. Patient elected to proceed with primary section. Patient was consented for a section and was agreeable to blood products as medically indicated. This was an unscheduled section. DESCRIPTION OF PROCEDURE: The patient was taken back to the operating room with running IV fluids. She was given 2 g of Ancef preoperatively for infection prophylaxis. Spinal anesthesia was obtained without difficulty and confirmed to be adequate. She was prepped and draped in the usual sterile fashion, and placed in the supine position with a leftward tilt. Anesthesia was tested and found to be adequate. A Pfannenstiel skin incision was made with the scalpel. The incision was carried through the subcutaneous tissue to the fascia with the Bovie. The fascia was incised in the midline and carried transversely using ga scissors. Kochers were used to grasp the edges of the fascia and sharp and blunt dissection was used to reflect the underlying rectus abdominis muscles. The rectus muscles were in the midline bluntly. The peritoneum was found to be free of adherent bowel and entered bluntly. The peritoneal incision was extended bluntly with good visualization of bladder. The bladder retractor and Swan retractor were placed, and the vesicouterine peritoneum was identified. The lower uterine segment was identified and incised in a low transverse fashion with a scalpel. The hysterotomy was extended bluntly initially and then further extended with bandage scissors. The amniotic cavity was entered and clear amniotic fluid was noted. The fetus was found to be in cephalic presentation. Bladder retractor and Swan retractor were removed. The head was brought to the level of the uterine incision with special care to avoid using the incision as a fulcrum. Fundal pressure was then applied, however the head did not deliver easily. Decision made to make T-incision on the uterus. The infant then delivered without difficulty. The cord was clamped and cut, and the infant was handed off to NICU personnel standing by. IV pitocin was then started. The placenta was removed with gentle traction and fundal pressure. The uterus was exteriorized and wrapped in a wet lap. The uterine cavity was wiped with a dry lap to assure complete removal of placental membranes. The uterus was noted to be atonic and uterine massage was performed. TXA was given. The uterine incision closed with 0 Monocryl suture in a continuous locked suture fashion. The T incision was closed with 0 Monocryl suture in a continuous locked suture fashion. A second imbricating layer was not performed. A figure of eight suture was placed at the right angle of the hysterotomy due to (more content not included)... Normal [facility] Progress Noteon 02-20-2024 Progress Note Safety huddle called to proceed with PCD 2/2 chorio, cat II FHT. FHT cat II for tachycardia. Maintains moderate variability. Cervix checked and remains closed. Discussed with Dr Mendoza and patient, offered PATROL SERGEANT to see if pt could tolerate labor. Patient reports she would rather proceed with PCD. Patient was counseled on section and that the risks include but are not limited to infection, damage to visceral and vascular structures, bleeding and need for blood transfusion, and prolonged hospitalization. Patient voiced her understanding of these risks and is accepting of a blood transfusion if medically necessary. All questions were answered and consents were signed. She received zosyn >1 hr ago, will receive ancef for surgical ppx. Primary RN, conveyor line battery charger, OB anesthesia, NICU, and Dr. Mendoza present and in agreement [facility] Vital signsOrdered By: Esa Dickinson on 02-20-2024 Heart rate 104 /min bpm [facility] Work Phone: BLOOD TYPE AND SCREEN GELon 02-19-2024 ABO GROUPING O Normal [facility] Comment on above: Performed By: #### L [id number] ####Solar System Installer: DAPHNEY ORELLANA ([id number])[facility]OD [facility] ([facility])[address] [place] [address] RH TYPE IN BLOOD Positive Normal [facility] Comment on above: Performed By: #### L [id number] ####Solar System Installer: DAPHNEY ORELLANA ([id number])[facility] BLOOD [facility] ([facility])[address] [place] [address] Blood type and Crossmatch genia mcguire (Bld)on 02-19-2024 ABO group Nom (Bld) O [facility] Blood group antibody screen GEL Ql Negative [facility] D Ag Ql (RBC) Positive [facility] CARECOORDon 02-19-2024 [facility] Day 5; 28/3 weeks today; Mood stable; CLP following; SW in to see patient this afternoon; no needs or concerns for CM at this time; will continue to follow Normal [facility] CARECOORD SW consult for resources. Met with pt at bedside. Pt approx 28 wks here for ROM, will be in hospital until delivery. States stressors related to being away from home, over an hour. Partner Adeel at bedside and supportive. Billy has three sons ages 16, 14, 8 who her friend Dior is watching while she is here. States had a 25 wk baby 8 years ago and is familiar with NICU Stay at [facility]. Has gathered many supplies, discussed help after delivery with childrens Sw. Asked about meal passes for partner. Sw provided him with two meal tickets for hospital. Asked about paying for parking, he is in [place] and has been all week. Sw talked to senior project manager dept who states rate is $7 flat rate no matter how long here. Fob state he can pay that. Pt denied any other needs at this time, Sw remains available if needs arise Normal [facility] CBC (HEMOGRAM)on 02-19-2024 Erythrocyte distribution width (RBC) [Ratio] 13.5 % Normal 11.5-15.0 [facility] Comment on above: Performed By: #### L [id number] ####Solar System Installer: DAPHNEY ORELLANA ([id number])[address] Hematocrit (Bld) [Volume fraction] 33.1 % Low 35.0-47.0 [facility] Comment on above: Performed By: #### L [id number] ####Solar System Installer: DAPHNEY ORELLANA ([id number])[address] Hemoglobin (Bld) [Mass/Vol] 11.4 g/dL Low 11.7-16.0 [facility] Comment on above: Performed By: #### L [id number] ####Solar System Installer: DAPHNEY ORELLANA ([id number])[address] MCH (RBC) [Entitic mass] 29.3 pg Normal 26.0-34.0 [facility] Comment on above: Performed By: #### L [id number] ####Solar System Installer: DAPHNEY ORELLANA ([id number])[facility] ([facility])[address] [place] [address] MCHC 34.4 % Normal 30.5-36.0 [facility] Comment on above: Performed By: #### L [id number] ####Solar System Installer: DAPHNEY ORELLANA ([id number])[facility] ([facility])[address] [place] [address] MCV (RBC) [Entitic vol] 85.1 fL Normal 77.0-99.0 [facility] Comment on above: Performed By: #### L [id number] ####Solar System Installer: DAPHNEY ORELLANA ([id number])[facility] ([facility])[address] [place] [address] Platelet mean volume (Bld) [Entitic vol] 9.7 fL Normal 9.0-12.7 [facility] Comment on above: Performed By: #### L [id number] ####Solar System Installer: DAPHNEY ORELLANA ([id number])[facility] ([facility])[address] [place] [address] Platelets (Bld) [#/Vol] 202 10*3/uL Normal 140-440 [facility] Comment on above: Performed By: #### L [id number] ####Solar System Installer: DAPHNEY ORELLANA ([id number])[facility] ([facility])[address] [place] [address] RBC (Bld) [#/Vol] 3.89 10*6/uL Normal 3.80-5.20 [facility] Comment on above: Performed By: #### L [id number] ####Solar System Installer: DAPHNEY ORELLANA ([id number])[facility])[address] [place] [address] WBC (Bld) [#/Vol] 17.4 10*3/uL High 3.6-10.7 [facility] Comment on above: Performed By: #### L AB294 ####Solar System Installer: DAPHNEY ORELLANA ([id number])[address] Erythrocyte distribution width (RBC) [Ratio] 13.8 % Normal 11.5-15.0 [facility] Comment on above: Performed By: #### L AB294 ####Solar System Installer: DAPHNEY ORELLANA ([id number])[address] Hematocrit (Bld) [Volume fraction] 32.5 % Low 35.0-47.0 [facility] Comment on above: Performed By: #### L AB294 ####Solar System Installer: DAPHNEY ORELLANA ([id number])[address] Hemoglobin (Bld) [Mass/Vol] 11.0 g/dL Low 11.7-16.0 [facility] Comment on above: Performed By: #### L AB294 ####Solar System Installer: DAPHNEY ORELLANA ([id number])[address] MCH (RBC) [Entitic mass] 28.6 pg Normal 26.0-34.0 [facility] Comment on above: Performed By: #### L AB294 ####Solar System Installer: DAPHNEY ORELLANA ([id number])[address] MCHC 33.8 % Normal 30.5-36.0 [facility] Comment on above: Performed By: #### L AB294 ####Solar System Installer: DAPHNEY ORELLANA ([id number])[address] MCV (RBC) [Entitic vol] 84.6 fL Normal 77.0-99.0 [facility] Comment on above: Performed By: #### L AB294 ####Solar System Installer: DAPHNEY ORELLANA ([id number])[facility] ([facility])[address] [place] [address] Platelet mean volume (Bld) [Entitic vol] 9.5 fL Normal 9.0-12.7 [facility] Comment on above: Performed By: #### L AB294 ####Solar System Installer: DAPHNEY ORELLANA ([id number])[facility] ([facility])[address] [place] [address] Platelets (Bld) [#/Vol] 187 10*3/uL Normal 140-440 [facility] Comment on above: Performed By: #### L [id number] ####Solar System Installer: DAPHNEY ORELLANA ([id number])[facility] ([facility])[address] [place] [address] RBC (Bld) [#/Vol] 3.84 10*6/uL Normal 3.80-5.20 [facility] Comment on above: Performed By: #### L [id number] ####Solar System Installer: DAPHNEY ORELLANA ([id number])[facility] ([facility])[address] [place] [address] WBC (Bld) [#/Vol] 16.3 10*3/uL High 3.6-10.7 [facility] Comment on above: Performed By: #### L [id number] ####Solar System Installer: DAPHNEY ORELLANA ([id number])[facility] ([facility])[address] [place] [address] CBC panel Auto (Bld)on 02-18 Erythrocyte distribution width (RBC) [Ratio] 13.5 % 11.5 - 15.0 % [facility] Hematocrit (Bld) [Volume fraction] 33.1 % Low 35.0 - 47.0 % [facility] Hemoglobin (Bld) [Mass/Vol] 11.4 g/dL Low 11.7 - 16.0 g/dL [facility] Interpretation and review of laboratory results Abnormal [facility] MCH (RBC) [Entitic mass] 29.3 pg 26.0 - 34.[address] [facility] MCHC (RBC) [Mass/Vol] 34.4 % 30.5 - 36.0 % [facility] MCV (RBC) [Entitic vol] 85.1 fL 77.0 - 99.[address] [facility] Platelet mean volume (Bld) [Entitic vol] 9.7 fL 9.0 - 12.[address] [facility] Platelets (Bld) [#/Vol] 202 10*3/uL 140 - 440 10*3/uL [facility] RBC (Bld) [#/Vol] 3.89 10*6/uL 3.80 - 5.2 0 10*6/uL [facility] WBC (Bld) [#/Vol] 17.4 10*3/uL High 3.6 - 10.7 10*3/uL [facility] Erythrocyte distribution width (RBC) [Ratio] 13.8 % 11.5 - 15.0 % [facility] Hematocrit (Bld) [Volume fraction] 32.5 % Low 35.0 - 47.0 % [facility] Hemoglobin (Bld) [Mass/Vol] 11.0 g/dL Low 11.7 - 16.0 g/dL [facility] Interpretation and review of laboratory results Abnormal [facility] MCH (RBC) [Entitic mass] 28.6 pg 26.0 - 34.[address] [facility] MCHC (RBC) [Mass/Vol] 33.8 % 30.5 - 36.0 % [facility] MCV (RBC) [Entitic vol] 84.6 fL 77.0 - 99.[address] [facility] Platelet mean volume (Bld) [Entitic vol] 9.5 fL 9.0 - 12.[address] [facility] Platelets (Bld) [#/Vol] 187 10*3/uL 140 - 440 10*3/uL [facility] RBC (Bld) [#/Vol] 3.84 10*6/uL 3.80 - 5.2 0 10*6/uL [facility] WBC (Bld) [#/Vol] 16.3 10*3/uL High 3.6 - 10.7 10*3/uL [facility] Laboratory - Chemistry and C hemistry - challengeon 02-19-2024 Glucose [Mass/Vol] 99 mg/dL 70 - 100 mg/dL [facility] Glucose [Mass/Vol] 98 mg/dL 70 - 100 mg/dL [facility] Glucose [Mass/Vol] 116 mg/dL High 70 - 100 mg/dL [facility] Glucose [Mass/Vol] 118 mg/dL High 70 - 100 mg/dL [facility] Glucose [Mass/Vol] 133 mg/dL High 70 - 100 mg/dL [facility] Glucose [Mass/Vol] 110 mg/dL High 70 - 100 mg/dL [facility] Glucose [Mass/Vol] 106 mg/dL High 70 - 100 mg/dL [facility] No Panel Informationon 02-18 Interpretation and review of laboratory results Normal [facility] Performed by: [facility], [address] [place] [address] CLIA ID: [id number] [facility] Interpretation and review of laboratory results Normal [facility] Performed by: [facility], [address] [place] [address] CLIA ID: [id number] [facility] Interpretation and review of laboratory results Abnormal [facility] Performed by: [facility], [address] [place] [address] CLIA ID: [id number] [facility] Interpretation and review of laboratory results Abnormal [facility] Performed by: [facility], [address] [place] [address] CLIA ID: [id number] [facility] Interpretation and review of laboratory results Abnormal [facility] Performed by: [facility], [address] [place] [address] CLIA ID: [id number] [facility] Interpretation and review of laboratory results Abnormal [facility] Performed by: [facility], [address] [place] [address] CLIA ID: [id number] [facility] Interpretation and review of laboratory results Abnormal [facility] Performed by: [facility], [address] [place] [address] CLIA ID: [id number] [facility] Progress Noteon 02-19-2024 Progress Note Called by RN to evaluate increased LOF and pressure. SSE performed with small amount of pooling of clear, non-purulent fluid. Cervix closed. Afebrile. Maternal HRR. FHT cat I and reassuring. Will continue to closely monitor. Called by RN to evaluate patients pain. Fundal tenderness present, pt states started earlier tonight and is now worse. She is afebrile. tachycardia present s/p IVF bolus. Will obtain CBC STAT. Vitals: 02/19/24 2147 BP: Pulse: Resp: Temp: 36.7 ?C (98 ?F) SpO2: remains cat II for tachycardia. Fundal tenderness still present. CBC remarkable for increasing leukocytosis with WBC 17.4, increased from 16.3 this AM. Reviewed POC with Dr Miranda and Dr Mendoza. Will start on zosyn continue IVF. If FHT becomes cat I will try for IOL. If cat II persists will proceed with PCD. Pt aware to remain NPO. NICU and conveyor line battery charger aware. [facility] Progress Note ---- Attestation signed by Nicol Interiano MD at 02/19/2024 3:41 PM I independently saw and evaluated the patient. I agree with the findings and plan of care as documented in the resident's note. Some intermittent pain still present no vaginal bleeding and sleeping in bed discussed improved BGT Cat 1 tracing and no obvious contractions Feels better with BGT 34 yr old at 28 3/7 GA with the following: PPROM with cerclage placement this . CERCLAGE OUT> History of PPROM/PTD/demise and subsequent chorio with her recent G4. She is cephalic on 02/18/24 ultrasound. Continue to expectantly manage as long as no signs of chorioamnionitis, labor or bleeding. NT fundus today and otherwise stable encouraged to tell us if pain worsens otherwise avoid digital exams Prematurity 02/15/24 scan at her OB through [place] [facility] revealed overgrowth and this was discussed and s/p consultation with higher risk for hypoglycemia given prematurity and higher BGT post steroids. Patient reports being "controlled" this but has recently been taking in more sugar from [place] consumption over the past few days prior to admission. S/p magnesium for neuroprotection, okay for bolus only 4gm IV if > 72 hours from original dosing. Currently s/p BMZ now x 2 with significant increases in her BGT while hospitalized. No tocolysis is indicated given PPROM T2DM split dose insulin finally improved numbers and suspect a decrease in insulin will be needed today based upon her numbers. Okay for 2 hour BGT and pre-meal dosing of short acting is fine continue to hope for better control today with significant increase in insulin post steroids. Follow over the next 24 hours as she is at increased risk for hypoglycemia adjusted her dosing back to her admission dosing with continued adjustments expected History of demise after PPROM at periviable GA poor obstetrical history consider CLP consult given her possible concerns for PTSD and discussed increasing Zoloft to 150mg daily and Visteril prn for her current anxiety History of manual extraction of placenta and D&C would consent again after this delivery given history at risk for PPH, OB team is aware and the patient has never spontaneously delivered a placenta. High risk for PPH Asthma sports induced Tobacco usage offer replacement Desire for BTL will sign consent but if vaginal this may need to be performed as interval with her primary OB care all through [facility] offer Tdap + flu shot while IP if stable. RH positive gHTN isolated BP 154/75 will repeat and if persistently mild will plan on pre-eclampsia work up normal CMP and platelets this admission Protein to creatinine ratio 0.22. Will obtain this may not be accurate given PROM. No BP meds at this time are recommended will continue to follow normotensive today Ongoing IP management and control of T2DM with expectant management s/p cerclage removal. No signs of chorio and follow closely for any signs. Okay for continued latency ABX and s/p BMZ x 2. S/p IV magnesium for neuroprotection. SCD while in the bed now as well given her obesity may need to consider Lovenox if stable over the next 24-48 hours given her BMI. Okay for if labor or planned IOL if continued cephalic presentation. At risk for PPH and retained placenta has second IV in place. Hemoglobin is currently 11.1 Expect to adjust insulin back to admission dosing today post steroids. I spent 30 minutes in the visit today on the floor reviewing the chart, discussing the case with the residency staff and nursing Nicol Interiano MD ---- Maternal Medicine Service Resident Progress Note 02/19/2024 5:45 AM 02/15/2024 Hospital Day: 5 Charmaine Avila, 34 y.o. 28w3d Patient has been seen and examined. Patient reports persistent mild abdominal cramping today that is much improved from prior. She continues to leak clear fluid and has noticed a yellow discharge as well. No vaginal bleeding, fevers, or chills. She has no other concerns today. Positive movement Negative vaginal bleeding Positive LOF rare Contractions Vitals: 02/18/24 1605 02/18/24200802/18/24 2240 02/19/24 0316 BP: (!) 120/59 120/69 132/63 139/73 BP Location: Right arm Patient Position: Sitting Pulse: 88 86 78 81 Resp: 18 20 20 18 Temp: 36.7 ?C (98 ?F) 36.4 ?C (97.6 ?F) 36.7 ?C (98 ?F) 36.5 ?C (97.7 ?F) TempSrc: Oral Oral Oral Oral SpO2: 98% 98% 96% 100% Weight: Height: FHT: 130, moderate variability Accels: present Decels: absent Contractions: none Physical Exam: Gen: NAD, appears comfortable sitting up in bed HEENT: Normocephalic, Atraumatic Resp: Equ (more content not included)... Normal [facility] 02-18-2024 [facility] Day 4; 28/2 weeks today; Mood stable; No concerns or needs voiced at this time [facility] Consulton 02-18-2024 Consult Department of Psychiatry Attending Consult Note Reason for Consult: PPROM, anxiety Consulting Physician: Leonor Royal, Ph.D IDENTIFYING DATA: The patient is a 34 y.o. female 28 2/7 admitted on 02/15/2024 with PPROM. History Obtained From: patient, EMR HISTORY OF PRESENT ILLNESS: Per pt's request her was present for this intake. Pt was alert, oriented, and participated. Pt reported that she was due to PPROM and admission to the hospital; we lost our baby girl this past March" (16 week - demise following PPROM); pt stated that she is feeling slightly better today and hopeful re: her current situation. Pt reported long standing hx of anxiety. Pt also lives about 1.5 hours away and difficult time being away from her children. Pt denied any SI/HI. At this time, no manic, no psychotic symptoms. Past Psychiatric History: Pt denied any previous psychiatric admissions and no previous suicide attempts. Pt is currently not in counseling. Pt has seen a counselor following her loss at 16 weeks, helpful at that time." Pt reported that she is taking following psychotropic medications: Zoloft. Pt stated that her dose was recently increased, pt also on Vistaril 25 mg, PRN every 6 hours. 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 Drug and Alcohol History: Pt denied any alcohol and drug abuse history. Pt reported that she smokes cigarettes, usually pack a day, during she has been smoking up to 10 cigarettes per day - encouraged cessation. Social History: Pt has been for about 1 year, has 3 children from previous marriage (all boys ages 16, 14, and 8 -- her 8 year old was born at 25 weeks and spent 4 months in the NICU). 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 Pt graduated high school; she drives. Lives in a mobile home, a close friend of hers is watching her older children while pt is admitted. MENTAL STATUS EXAM Mental Status Exam: Appearance: hospital gown Behavior: cooperative Activity normal Speech: spontaneous, normal rate Mood: somewhat anxious, Affect: congruent with mood Associations: goal directed Thought content: worries re: baby Thought process: logical, organized Orientation: oriented in all spheres Attention good Concentration good Insight: good Judgment: good Suicidal Intentions: no Suicidal Plan: no Impression : Adjustment reaction with anxiety DAVI PLAN: Session focused on decreasing depressive and anxiety symptoms, and supportive intervention. No SI/HI, pt is very future oriented. Pt declined further assessment for medications at this time, feels they are well managed. Will continue to follow as able during this stay. Pt voiced clear understanding of all treatment plans. Thank you for consulting our services. Normal [facility] IDNon 02-18-2024 IDN Problem: Antepartum Goal: Maintain as long as maternal and/or condition is stable Outcome: Progressing Problem: Safety - Adult Goal: Free from fall injury Outcome: Progressing The patient is Moderately Stable - Low risk of patient condition declining or worsening The patient's goals for the shift include remain The clinical goals for the shift include pt will have adeequate glucose control with medications Normal [facility] Laboratory - Chemistry and C hemistry - challengeon 02-18-2024 Glucose [Mass/Vol] 97 mg/dL 70 - 100 mg/dL [facility] Glucose [Mass/Vol] 146 mg/dL High 70 - 100 mg/dL [facility] Glucose [Mass/Vol] 106 mg/dL High 70 - 100 mg/dL [facility] Glucose [Mass/Vol] 98 mg/dL 70 - 100 mg/dL [facility] Glucose [Mass/Vol] 79 mg/dL 70 - 100 mg/dL [facility] Glucose [Mass/Vol] 58 mg/dL Low 70 - 100 mg/dL [facility] Glucose [Mass/Vol] 129 mg/dL High 70 - 100 mg/dL [facility] Glucose [Mass/Vol] 103 mg/dL High 70 - 100 mg/dL [facility] Glucose [Mass/Vol] 103 mg/dL High 70 - 100 mg/dL [facility] Glucose [Mass/Vol] 79 mg/dL 70 - 100 mg/dL [facility] No Panel Informationon 02-17 Interpretation and review of laboratory results Normal [facility] Performed by: [facility] [facility], [address] [place], [place] [id number] CLIA ID: [id number] [facility] Interpretation and review of laboratory results Abnormal [facility] Performed by: [facility], [address] [place] [address], [place] [address] CLIA ID: [id number] [facility] Interpretation and review of laboratory results Abnormal [facility] Performed by: [email or web address] [place] [facility], [address] [place] [address], [place] [address] CLIA ID: [id number] [facility] Interpretation and review of laboratory results Normal [facility] Performed by: [facility], [address] [place] [address], [place] [address] CLIA ID: [id number] [facility] Interpretation and review of laboratory results Normal [facility] Performed by: [email or web address] [facility], [address] [place] [address], [place] [address] CLIA ID: [id number] [facility] Interpretation and review of laboratory results Abnormal [facility] Performed by: [employer] [facility], [address] [place] [address], [place] [address] CLIA ID: [id number] [facility] Mandujano live intrauterine at 28w 2d. - The amniotic fluid index is 1.7cm, which is oligohydramnios - Reassuring biophysical profile, 10/30. see IP note from today Ultrasound is not diagnostic of chromosomal aneuploidy and does not detect all subtle defects. Normal ultrasound findings do not guarantee normal outcomes. [employer] RADI[facility]Y SYSTEM OBSTETRICS REPORT (Signed Final 02/18/2024 11:50 am) PATIENT INFO: ID #: [id number] : [birth year] (34 yrs)(F) Name: CHARMAINE AVILA Visit Date: 02/18/2024 08:43 am PERFORMED BY: Attending: Nicol Interiano MD Performed By: Gisela Lynch RDMS Referred By: ALLY CHINO MD Ref. Address: [address] [place] [address] Location: [facility] IP Visit Type: Inpatient - Hospital SERVICE(S) PROVIDED: BORIS w/out NST [id number] INDICATIONS: Premature rupture of membranes, O42.90 unspecified as to length of time between rupture and onset of labor, unspecified weeks of gestation VITAL SIGNS: Weight (lb): 245 Height: 5'8" BMI: 37.25 EVALUATION: Num Of Fetuses: 1 Heart Rate(bpm): 144 Cardiac Activity: Regular rhythm Lie: Longitudinal Presentation: Cephalic Placenta: Anterior Amniotic Fluid TRACEY FV: Oligohydramnios TRACEY Sum(cm) %Tile Largest Pocket(cm) 1.7 < 3 1.7 RUQ(cm) RLQ(cm) LUQ(cm) LLQ(cm) 1.7 0 0 0 BIOPHYSICAL EVALUATION: Amniotic F.V: Pocket < 2 cm two F. Tone: Observed planes F. Movement: Observed Score: 10/30 F. Breathing: Observed BIOMETRY: GESTATIONAL AGE: Clinical LEELA: 28w 2d LEELA: 05/10/24 Best: 28w 2d Det. By: Clinical LEELA LEELA: 05/10/24 ANATOMY: Heart: Normal appearance Stomach: Normal appearance Cord Vessels: 3-Vessel Cord Kidneys: Normal appearance Bladder: Normal appearance Nicol Interiano MD Electronically Signed Final Report 02/18/2024 11:50 am [facility] Nicol Interiano MD - 02/18/2024 OBSTETRICS REPORT (Signed Final 02/18/2024 11:50 am) PATIENT INFO: ID #: [id number] : [birth year] (34 yrs)(F) Name: CHARMAINE AVILA Visit Date: 02/18/2024 08:43 am PERFORMED BY: Attending: Nicol Interiano MD Performed By: Gisela Lynch RDMS Referred By: ALLY CHINO MD Ref. Address: [address] Location: [facility] IP Visit Type: Inpatient - Hospital SERVICE(S) PROVIDED: BORIS w/out NST [id number] INDICATIONS: Premature rupture of membranes, O42.90 unspecified as to length of time between rupture and onset of labor, unspecified weeks of gestation VITAL SIGNS: Weight (lb): 245 Height: 5'8" BMI: 37.25 EVALUATION: Num Of Fetuses: 1 Heart Rate(bpm): 144 Cardiac Activity: Regular rhythm Lie: Longitudinal Presentation: Cephalic Placenta: Anterior Amniotic Fluid TRACEY FV: Oligohydramnios TRACEY Sum(cm) %Tile Largest Pocket(cm) 1.7 < 3 1.7 RUQ(cm) RLQ(cm) LUQ(cm) LLQ(cm) 1.7 0 0 0 BIOPHYSICAL EVALUATION: Amniotic F.V: Pocket < 2 cm two F. Tone: Observed planes F. Movement: Observed Score: 8 F. Breathing: Observed BIOMETRY: GESTATIONAL AGE: Clinical LEELA: 28w 2d LEELA: 05/10/24 Best: 28w 2d Det. By: Clinical LEELA LEELA: 05/10/24 ANATOMY: Heart: Normal appearance Stomach: Normal appearance Cord Vessels: 3-Vessel Cord Kidneys: Normal appearance Bladder: Normal appearance Nicol Interiano MD Electronically Signed Final Report 02/18/2024 11:50 am IMPRESSION: - Mandujano live intrauterine at 28w 2d. - The amniotic fluid index is 1.7cm, which is oligohydramnios - Reassuring biophysical profile, 10/30. see IP note from today Ultrasound is not diagnostic of chromosomal aneuploidy and does not detect all subtle defects. Normal ultrasound findings do not guarantee normal outcomes. [facility] [facility] Interpretation and review of laboratory results Abnormal [employer] [facility] Performed by: [facility], [address] [place] [address] CLIA ID: [id number] [facility] Interpretation and review of laboratory results Abnormal [facility] Performed by: [facility], [address] [place] [address] CLIA ID: [id number] [facility] Radiology Study observation (narrative) [facility] Interpretation and review of laboratory results Abnormal [facility] Performed by: [facility], [address] [place] [address] CLIA ID: [id number] [email or web address] [facility] Interpretation and review of laboratory results Normal [facility] Performed by: [facility], [address] [place] [address] CLIA ID: [id number] [email or web address] [facility] Progress Noteon 02-18-2024 Progress Note ---- Attestation signed by Nicol Interiano MD at 02/18/2024 1:05 PM (Updated) I independently saw and evaluated the patient. I agree with the findings and plan of care as documented in the resident's note. Some intermittent pain still present no vaginal bleeding and sleeping in chair when I came in to the room Cat 1 tracing and no obvious contractions Feels better with BGT 34 yr old at 28 2/7 GA with the following: PPROM with cerclage placement this . CERCLAGE OUT> History of PPROM/PTD/demise and subsequent chorio with her recent G4. She is cephalic on 02/18/24 ultrasound. Continue to expectantly manage as long as no signs of chorioamnionitis, labor or bleeding. NT fundus today and otherwise stable encouraged to tell us if pain worsens otherwise avoid digital exams Prematurity 02/15/24 scan at her OB through [facility] revealed overgrowth and this was discussed and s/p consultation with higher risk for hypoglycemia given prematurity and higher BGT post steroids. Patient reports being "controlled" this but has recently been taking in more sugar from [place] consumption over the past few days prior to admission. S/p magnesium for neuroprotection, okay for bolus only 4gm IV if > 72 hours from original dosing. Currently s/p BMZ now x 2 with significant increases in her BGT while hospitalized. No tocolysis is indicated given PPROM T2DM split dose insulin finally improved numbers and suspect a decrease in insulin will be needed today based upon her numbers. Okay for 2 hour BGT and pre-meal dosing of short acting is fine continue to hope for better control today with significant increase in insulin post steroids. Follow over the next 24 hours as she is at increased risk for hypoglycemia adjusted her dosing back to her admission dosing with continued adjustments expected History of demise after PPROM at periviable [place] poor obstetrical history consider CLP consult given her possible concerns for PTSD and discussed increasing Zoloft to 150mg daily and Visteril prn for her current anxiety History of manual extraction of placenta and D&C would consent again after this delivery given history at risk for PPH, OB team is aware and the patient has never spontaneously delivered a placenta. High risk for PPH Asthma sports induced Tobacco usage offer replacement Desire for BTL will sign consent but if vaginal this may need to be performed as interval with her primary OB care all through [facility] offer Tdap + flu shot while IP if stable. RH positive gHTN isolated BP 154/75 will repeat and if persistently mild will plan on pre-eclampsia work up normal CMP and platelets this admission Protein to creatinine ratio 0.22. Will obtain this may not be accurate given PROM. No BP meds at this time are recommended will continue to follow normotensive today Ongoing IP management and control of T2DM with expectant management s/p cerclage removal. No signs of chorio and follow closely for any signs. Okay for continued latency ABX and s/p BMZ x 2. S/p IV magnesium for neuroprotection. SCD while in the bed now as well given her obesity may need to consider Lovenox if stable over the next 24-48 hours given her BMI. Okay for if labor or planned IOL if continued cephalic presentation. At risk for PPH and retained placenta has second IV in place. Hemoglobin is currently 11.1 Expect to adjust insulin back to admission dosing today post steroids. I spent 30 minutes in the visit today on the floor reviewing the chart, discussing the case with the residency staff and nursing Nicol Interiano MD ---- Maternal Medicine Service Resident Progress Note 02/18/2024 5:24 AM 02/15/2024 Hospital Day: 4 Charmaine Avila, 34 y.o. 28w2d Patient has been seen and examined. Pt still having some vaginal pressure, no other changes. Positive movement Negative vaginal bleeding Positive LOF Negative Contractions Vitals: 02/18/24 0035 02/18/24 0040 02/18/24 0050 02/18/24 0051 BP: 121/69 Pulse: 73 66 84 79 Resp: 18 Temp: 36.9 ?C (98.4 ?F) TempSrc: SpO2: Weight: Height: FHT reviewed over past 12 hours FHT: 150, moderate variability Accels: present Decels: absent Contractions: none Physical Exam: Gen: NAD HEENT: Normocephalic, Atraumatic Resp: Non-labored Abd: soft, gravid, NTND, no rebound, no guarding. negative fundal tenderness Medications: Current Facility-Administer ed Medications Medication Dose Route Frequency Provider Last Rate Last Admin amoxicillin (Amoxil) capsule 500 mg 500 mg Oral 3 times per day Irasemajamie Paredes DO 500 mg at 02/18/24 0049 ampicillin (Omnipen) (more content not included)... Normal [facility] US BIOPHYSICAL PROFILE WO NON STRESS TESTINGon 02-18-2024 US BIOPHYSICAL PROFILE WO NON STRESS TESTING OBSTETRICS REPORT (Signed Final 02/18/2024 11:50 am) PATIENT INFO: ID #: [id number] : [birth year] (34 yrs)(F) Name: CHARMAINE AVILA Visit Date: 02/18/2024 08:43 am PERFORMED BY: Attending: Nicol Interiano MD Performed By: Gisela Lynch [facility] Referred By: ALLY CHINO MD Ref. Address: [address] [place] [address] Location: [facility] IP Visit Type: Inpatient - Hospital SERVICE(S) PROVIDED: BORIS w/out NST [id number] INDICATIONS: Premature rupture of membranes, O42.90 unspecified as to length of time between rupture and onset of labor, unspecified weeks of gestation VITAL SIGNS: Weight (lb): 245 Height: 5'8" BMI: 37.25 EVALUATION: Num Of Fetuses: 1 Heart Rate(bpm): 144 Cardiac Activity: Regular rhythm Lie: Longitudinal Presentation: Cephalic Placenta: Anterior Amniotic Fluid TRACEY FV: Oligohydramnios TRACEY Sum(cm) %Tile Largest Pocket(cm) 1.7 < 3 1.7 RUQ(cm) RLQ(cm) LUQ(cm) LLQ(cm) 1.7 0 0 0 BIOPHYSICAL EVALUATION: Amniotic F.V: Pocket < 2 cm two F. Tone: Observed planes F. Movement: Observed Score: 10/30 F. Breathing: Observed BIOMETRY: GESTATIONAL AGE: Clinical LEELA: 28w 2d LEELA: 05/10/24 Best: 28w 2d Det. By: Clinical LEELA LEELA: 05/10/24 ANATOMY: Heart: Normal appearance Stomach: Normal appearance Cord Vessels: 3-Vessel Cord Kidneys: Normal appearance Bladder: Normal appearance Nicol Interiano MD Electronically Signed Final Report 02/18/2024 11:50 am IMPRESSION: - Mandujano live intrauterine at 28w 2d. - The amniotic fluid index is 1.7cm, which is oligohydramnios - Reassuring biophysical profile, 10/30. see IP note from today Ultrasound is not diagnostic of chromosomal aneuploidy and does not detect all subtle defects. Normal ultrasound findings do not guarantee normal outcomes. Normal [facility] Bacteria identified Cx Nom ( U)Ordered By: Delfina Lepe on 02-17-2024 Interpretation and review of laboratory results Normal [facility] CBC (HEMOGRAM)on 02-17-2024 Erythrocyte distribution width (RBC) [Ratio] 13.5 % Normal 11.5-15.0 [facility] Comment on above: Performed By: #### L [id number] ####Solar System Installer: DAPHNEY ORELLANA ([id number])[address] Hematocrit (Bld) [Volume fraction] 35.2 % Normal 35.0-47.0 [facility] Comment on above: Performed By: #### L [id number] ####Solar System Installer: DAPHNEY ORELLANA ([id number])[facility])[address] [place] [address] Hemoglobin (Bld) [Mass/Vol] 11.6 g/dL Low 11.7-16.0 [facility] Comment on above: Performed By: #### L [id number] ####Solar System Installer: DAPHNEY ORELLANA ([id number])[facility])[address] [place] [address] MCH (RBC) [Entitic mass] 28.1 pg Normal 26.0-34.0 [facility] Comment on above: Performed By: #### L [id number] ####Solar System Installer: DAPHNEY ORELLANA ([id number])[address] MCHC 33.0 % Normal 30.5-36.0 [facility] Comment on above: Performed By: #### L [id number] ####Solar System Installer: DAPHNEY ORELLANA ([id number])[facility])[address] [place] [address] MCV (RBC) [Entitic vol] 85.2 fL Normal 77.0-99.0 [facility] Comment on above: Performed By: #### L [id number] ####Solar System Installer: DAPHNEY ORELLANA ([id number])[facility] ([facility])[address] [place] [address] Platelet mean volume (Bld) [Entitic vol] 9.7 fL Normal 9.0-12.7 [facility] Comment on above: Performed By: #### L [id number] ####Solar System Installer: DAPHNEY ORELLANA ([id number])[facility] ([facility])[address] [place] [address] Platelets (Bld) [#/Vol] 209 10*3/uL Normal 140-440 [facility] Comment on above: Performed By: #### L [id number] ####Solar System Installer: DAPHNEY ORELLANA ([id number])[facility] ([facility])[address] [place] [address] RBC (Bld) [#/Vol] 4.13 10*6/uL Normal 3.80-5.20 [facility] Comment on above: Performed By: #### L [id number] ####Solar System Installer: DAPHNEY ORELLANA ([id number])[facility] ([facility])[address] [place] [address] WBC (Bld) [#/Vol] 22.3 10*3/uL High 3.6-10.7 [facility] Comment on above: Performed By: #### L [id number] ####Solar System Installer: DAPHNEY ORELLANA ([id number])[facility] ([facility])[address] [place] [address] CBC panel Auto (Bld)on 02-16 Erythrocyte distribution width (RBC) [Ratio] 13.5 % 11.5 - 15.0 % [facility] Hematocrit (Bld) [Volume fraction] 35.2 % 35.0 - 47.0 % [facility] [facility] Hem[facility] (Bld) [Mass/Vol] 11.6 g/dL Low 11.7 - 16.0 g/dL [facility] Interpretation and review of laboratory results Abnormal [facility] MCH (RBC) [Entitic mass] 28.1 pg 26.0 - 34.[address] [facility] MCHC (RBC) [Mass/Vol] 33.0 % 30.5 - 36.0 % [facility] MCV (RBC) [Entitic vol] 85.2 fL 77.0 - 99.[address] [facility] Platelet mean volume (Bld) [Entitic vol] 9.7 fL 9.0 - 12.[address] [facility] Platelets (Bld) [#/Vol] 209 10*3/uL 140 - 440 10*3/uL [facility] RBC (Bld) [#/Vol] 4.13 10*6/uL 3.80 - 5.2 0 10*6/uL [facility] WBC (Bld) [#/Vol] 22.3 10*3/uL High 3.6 - 10.7 10*3/uL [facility] CREATININE, URINE, RANDOMon 02-17-2024 CREATININE, URINE 98.9 mg/dL Normal No Range [facility] Comment on above: Performed By: #### L [id number], [id number] ####Solar System Installer: DAPHNEY ORELLANA ([id number])[facility] ([address] Creatinine (U) [Mass/Vol]on 02-17-2024 CREATININE, URINE 98.9 mg/dL No [facility] IDNon 02-17-2024 IDN The patient is Moderately Stable - Low risk of patient condition declining or worsening The patient's goals for the shift include stay The clinical goals for the shift include stay Over the shift, the patient did not make progress toward the following goals. Barriers to progression include PPROM. Recommendations to address these barriers include continuous assessment of maternal and status.. Normal [facility] Laboratory - Chemistry and C hemistry - challengeon 02-17-2024 Glucose [Mass/Vol] 152 mg/dL High 70 - 100 mg/dL [facility] Glucose [Mass/Vol] 71 mg/dL 70 - 100 mg/dL [facility] Glucose [Mass/Vol] 81 mg/dL 70 - 100 mg/dL [facility] Glucose [Mass/Vol] 131 mg/dL High 70 - 100 mg/dL [facility] Glucose [Mass/Vol] 222 mg/dL High 70 - 100 mg/dL [facility] Glucose [Mass/Vol] 277 mg/dL High 70 - 100 mg/dL [facility] Glucose [Mass/Vol] 195 mg/dL High 70 - 100 mg/dL [facility] Glucose [Mass/Vol] 158 mg/dL High 70 - 100 mg/dL [facility] Laboratory - Microbiology an d Antimicrobial susceptibilityOrdered By: Delfina Lepe on 02-17-2024 Bacteria identified Cx Nom (U) Normal urogenital kanwal present [facility] Laboratory - Urinalysison Protein (U) [Mass/Vol] 22 mg/dL High 0 - 12 mg/dL [facility] No Panel Informationon 02-16 Interpretation and review of laboratory results Abnormal [facility]formed by: [facility], [address] [place] [address] CLIA ID: [id number] [facility] Interpretation and review of laboratory results Normal [facility] Performed by: [facility], [address] [place] [address] CLIA ID: [id number] [facility] Interpretation and review of laboratory results Abnormal [facility] Interpretation and review of laboratory results Normal [facility] Performed by: [facility], [address] [place] [address] CLIA ID: [id number] [facility] Interpretation and review of laboratory results Abnormal [facility] Performed by: [facility], [address] [place] [address] CLIA ID: [id number] [facility] Interpretation and review of laboratory results Abnormal [facility] Performed by: [facility], [address] [place] [address] CLIA ID: [id number] [facility] Interpretation and review of laboratory results Abnormal [facility] Performed by: [facility], [address] [place] [address] CLIA ID: [id number] [facility] Interpretation and review of laboratory results Abnormal [facility] Performed by: [facility], [address] [place] [address] CLIA ID: [id number] [facility] Interpretation and review of laboratory results Abnormal [facility] Performed by: [facility], [address] [address] CLIA ID: [id number] [facility] Nursing Noteon 02-17-[address] chino notified of mbs 277 Normal [facility] PROTEIN, URINE, RANDOMon Protein (U) [Mass/Vol] 22 mg/dL High 0-12 [facility] Comment on above: Performed By: #### L [id number], [id number] ####Solar System Installer: DAPHNEY ORELLANA ([id number])[facility] ([facility])[address] Progress Noteon 02-17-2024 Progress Note Consult received, electronic medical record reviewed. Pt to be seen tomorrow. Normal [facility] Progress Note Nutrition rescreen completed. Patient referred to the Dietitian for Gestational DM. Kenyetta Schilling, ANA LAURA Normal [facility] Progress Note ---- Attestation signed by Nicol Interiano MD at 02/17/2024 2:58 PM I independently saw and evaluated the patient. I agree with the findings and plan of care as documented in the resident's note. Some intermittent pain had an exam without change. Reports significant anxiety and PTSD requesting ultrasound tomorrow no vaginal bleeding Cat 1 tracing and no obvious contractions Discussed the difficulty in control of BGT and the significant increase in her BGT, wants to take short acting 10 min prior to meal and would prefer 2 hour values over one hour and discussed concerns today 34 yr old at 28 1/7 GA with the following: PPROM with cerclage placement this . CERCLAGE OUT> History of PPROM/PTD/demise and subsequent chorio with her recent G4. She is cephalic on 02/17/24 ultrasound. Continue to expectantly manage as long as no signs of chorioamnionitis, labor or bleeding. NT fundus today and otherwise stable Prematurity 9/23/24 scan at her OB revealed overgrowth and this was discussed and s/p consultation with higher risk for hypoglycemia given prematurity and higher BGT post steroids. Patient reports being "controlled" this but has recently been taking in more sugar from [place] consumption over the past few days prior to admission. S/p magnesium for neuroprotection, okay for bolus only 4gm IV if > 72 hours from original dosing. Currently s/p BMZ now x 2 with significant increases in her BGT while hospitalized. No tocolysis is indicated given PPROM T2DM split dose insulin will add extra NPH at noon today, continued dosing of SSI and continued Metformin 1000mg BID. Discussed concerns with resistance and suspect based upon ultrasound prior to admission and her current numbers she has not been optimized this . Okay for 2 hour BGT and pre-meal dosing of short acting is fine continue to hope for better control today with significant increase. Follow over the next 24 hours as she is at increased risk for hypoglycemia History of demise after PPROM at periviable GA poor obstetrical history consider CLP consult given her possible concerns for PTSD and discussed increasing Zoloft to 150mg daily and Visteril prn for her current anxiety History of manual extraction of placenta and D&C would consent again after this delivery given history at risk for PPH, OB team is aware Asthma sports induced Tobacco usage offer replacement Desire for BTL will sign consent but if vaginal this may need to be performed as interval care all through [facility] offer Tdap + flu shot while IP if stable gHTN isolated BP 154/75 today will repeat and if persistently mild will plan on pre-eclampsia work up normal CMP and platelets this admission no Protein to creatinine ratio performed. Will obtain this may not be accurate given PROM. No BP meds at this time are recommended will continue to follow Ongoing IP management and control of T2DM with expectant management s/p cerclage removal. No signs of chorio and follow closely for any signs. Okay for continued latency ABX and completion of BMZ today. S/p IV magnesium for neuroprotection. SCD while in the bed now as well given her obesity may need to consider Lovenox if stable over the next 24-48 hours given her BMI. Okay for if labor or planned IOL if continued cephalic presentation. At risk for PPH and retained placenta will address with OB team as may need a second IV/consideration of D&C consent if labor. Hemoglobin is currently 11.1 I spent 30 minutes in the visit today on the floor reviewing the chart, discussing the case with the residency staff and nursing Nicol Interiano MD ---- Maternal Medicine Service Resident Progress Note 02/17/2024 5:17 AM 02/15/2024 Hospital Day: 3 Charmaine Avila, 34 y.o. 28w1d Patient has been seen and examined. Pt complains of some vaginal pressure, SSE overnight negative for cervical dilation, minimal contractions. Feeling some chills this AM, will plan to repeat temperature. Positive movement Negative vaginal bleeding Positive LOF Positive Contractions Vitals: 02/16/24 1020 02/16/24 1025 02/16/24 1026 02/16/24 2305 BP: 135/67 128/78 Pulse: 93 85 84 99 Resp: 18 Temp: 36.7 ?C (98.1 ?F) 36.6 ?C (97.8 ?F) TempSrc: Oral Axillary SpO2: Weight: Height: FHT reviewed over past 12 hours FHT: 130, moderate variability Accels: present Decels: present, intermittent variable decels, overall reassuring with both moderate variability and spon accels Contractions: none on toco Physical Exam: Gen: NAD HEENT: Normocephalic, Atraumatic Resp: Non-labored Abd: soft, gravid, NTND, no rebound, no (more content not included)... [facility] CARECOORDon 02-16-2024 CARECOORD Date: 02/16/2024 Name: Charmaine Avila : 1990 [facility] Patient Information Primary Caregiver: Self Accompanied by/Relationship: S/O;Family Marital Status: Single Support System: SO/Family Bahai/Cultural Factors: None Activities of Daily Living Communication: See demographics Living Arrangements Current Residence: Private residence Lives With: S/O; Family Support System: S/O; Family Income Information Income Source: Not Employed Financial Resource Strain How hard is it for you to pay for the very basics like food, housing, medical care and heating? N/A Housing Stability In the last 12 months, was there a time when you did not have a steady place to sleep or slept in a prison (including now)? No Transportation Needs Has the lack of Transportation kept you from medical appointments? No In the past 12 months, has the lack of transportation kept you from meetings, work, or from getting things needed for daily living? No Food Insecurity Within the past 12 months, have you worried that your food would run out before you got the money to buy more? No Stress Do you feel stress - tense, restless, nervous, or anxious, or unable to sleep at night because you mind is troubled all the time? Mood stable Referral To Financial Resources: N/A Community Resources: PNU folder given upon admission to PNU Unit Social Work: Yes; Pt would like to discuss resources CLP:Declines at this time Medical Information admitted at 29/4 weeks for PPROM; s/p cerclage removal earlier today; Hx PPROM/PTD; T2DM; tHTN; Hx demise, anxiety, continues on Zoloft; CLP declined at this time per patient; Asthma; Nicotine use Discharge Plan Home or Community Resources: PNU Admission folder given upon admission to unit Equipment: N/A Education Given: PNU admit folder and see Education Tab Additional Information: N/A Mental Health Services: N/A Developmental Delay: N/A Children's Services: N/A Normal [facility] CBC (HEMOGRAM)on 02-16-2024 Erythrocyte distribution width (RBC) [Ratio] 13.7 % Normal 11.5-15.0 [facility] Comment on above: Performed By: #### L [id number] ####Solar System Installer: DAPHNEY ORELLANA ([id number])[facility] ([address] Hematocrit (Bld) [Volume fraction] 32.8 % Low 35.0-47.0 [facility] Comment on above: Performed By: #### L [id number] ####Solar System Installer: DAPHNEY ORELLANA ([id number])[facility])[address] [place] [address] Hemoglobin (Bld) [Mass/Vol] 11.1 g/dL Low 11.7-16.0 [facility] Comment on above: Performed By: #### L [id number] ####Solar System Installer: DAPHNEY ORELLANA ([id number])[facility] ([facility])[address] [place] [address] MCH (RBC) [Entitic mass] 28.8 pg Normal 26.0-34.0 [facility] Comment on above: Performed By: #### L [id number] ####Solar System Installer: DAPHNEY ORELLANA ([id number])[facility])[address] [place] [address] MCHC 33.8 % Normal 30.5-36.0 [facility] Comment on above: Performed By: #### L [id number] ####Solar System Installer: DAPHNEY ORELLANA ([id number])[facility] ([facility])[address] [place] [address] MCV (RBC) [Entitic vol] 85.2 fL Normal 77.0-99.0 [facility] Comment on above: Performed By: #### L [id number] ####Solar System Installer: DAPHNEY ORELLANA ([id number])[facility])[address] [place] [address] Platelet mean volume (Bld) [Entitic vol] 9.5 fL Normal 9.0-12.7 [facility] Comment on above: Performed By: #### L [id number] ####Solar System Installer: DAPHNEY ORELLANA ([id number])[facility])[address] [place] [address] Platelets (Bld) [#/Vol] 180 10*3/uL Normal 140-440 [facility] Comment on above: Performed By: #### L [id number] ####Solar System Installer: DAPHNEY ORELLANA ([id number])[facility] ([facility])[address] [place] [address] RBC (Bld) [#/Vol] 3.85 10*6/uL Normal 3.80-5.20 [facility] Comment on above: Performed By: #### L [id number] ####Solar System Installer: DAPHNEY ORELLANA ([id number])[facility] ([facility])[address] [place] [address] WBC (Bld) [#/Vol] 16.5 10*3/uL High 3.6-10.7 [facility] Comment on above: Performed By: #### L [id number] ####Solar System Installer: DAPHNEY ORELLANA ([id number])[facility] ([facility])[address] [place] [address] CBC panel Auto (Bld)on 02-15 Erythrocyte distribution width (RBC) [Ratio] 13.7 % 11.5 - 15.0 % [facility] Hematocrit (Bld) [Volume fraction] 32.8 % Low 35.0 - 47.0 % [facility] Hemoglobin (Bld) [Mass/Vol] 11.1 g/dL Low 11.7 - 16.0 g/dL [facility] Interpretation and review of laboratory results Abnormal [facility] MCH (RBC) [Entitic mass] 28.8 pg 26.0 - 34.[address] [facility] MCHC (RBC) [Mass/Vol] 33.8 % 30.5 - 36.0 % [facility] MCV (RBC) [Entitic vol] 85.2 fL 77.0 - 99.[address] [facility] Platelet mean volume (Bld) [Entitic vol] 9.5 fL 9.0 - 12.[address] [facility] Platelets (Bld) [#/Vol] 180 10*3/uL 140 - 440 10*3/uL [facility] RBC (Bld) [#/Vol] 3.85 10*6/uL 3.80 - 5.2 0 10*6/uL [facility] WBC (Bld) [#/Vol] 16.5 10*3/uL High 3.6 - 10.7 10*3/uL [facility] COMPREHENSIVE METABOLIC PANE Edin 02-16-2024 Albumin [Mass/Vol] 3.2 g/dL Low 3.5-5.0 [facility] Comment on above: Performed By: #### L [id number] ####Solar System Installer: DAPHNEY ORELLANA ([id number])[facility] ([facility])[address] [place] [address] ALP [Catalytic activity/Vol] 106 U/L Normal 38-126 [facility] Comment on above: Performed By: #### L AB17 ####Solar System Installer: DAPHNEY ORELLANA ([id number])[facility] ([facility])[address] [place] [address] ALT [Catalytic activity/Vol] 14 U/L Normal 0-34 [facility] Comment on above: Performed By: #### L AB17 ####Solar System Installer: DAPHNEY ORELLANA ([id number])[facility] ([facility])[address] [place] [address] Anion gap [Moles/Vol] 6 mmol/L Normal 3-13 [facility] Comment on above: Performed By: #### L AB17 ####Solar System Installer: DAPHNEY ORELLANA ([id number])[facility] ([facility])[address] [place] [address] AST [Catalytic activity/Vol] 18 U/L Normal 15-46 [facility] Comment on above: Performed By: #### L AB17 ####Solar System Installer: DAPHNEY ORELLANA ([id number])[facility])[address] [place] [address] Bilirubin [Mass/Vol] 0.2 mg/dL Normal 0.2-1.3 [facility] Comment on above: Performed By: #### L AB17 ####Solar System Installer: DAPHNEY ORELLANA ([id number])[facility])[address] [place] [address] Calcium [Mass/Vol] 7.8 mg/dL Low 8.4-10.4 [facility] Comment on above: Performed By: #### L AB17 ####Solar System Installer: DAPHNEY ORELLANA ([id number])[facility] ([facility] [place] [address] Chloride [Moles/Vol] 111 mmol/L High 98-107 [facility] Comment on above: Performed By: #### L AB17 ####Solar System Installer: DAPHNEY ORELLANA ([id number])[facility] ([facility] [place] [address] CO2 [Moles/Vol] 18 mmol/L Low 22-30 [facility] Comment on above: Performed By: #### L AB17 ####Solar System Installer: DAPHNEY ORELLANA ([id number])[facility])[address] [place] [address] Creatinine [Mass/Vol] 0.32 mg/dL Low 0.52-1.04 [facility] Comment on above: Performed By: #### L AB17 ####Solar System Installer: DAPHNEY ORELLANA ([id number])[facility] ([facility])[address] [place] [address] GLOMERULAR FILTRATION RATE ML/MIN/1.73 SQ M.PREDICTED >90.0 Normal >60.0 [facility] Comment on above: Result Comment: Calc ulation based on the Chronic Kidney Disease Epidemiology Collaboration (CKD-EPI) equation refit without adjustment for race Performed By: #### L [id number] ####Solar System Installer: DAPHNEY ORELLANA ([id number])[facility] ([facility])[address] [place] [address] Glucose [Mass/Vol] 170 mg/dL High 70-100 [facility] Comment on above: Performed By: #### L AB17 ####Solar System Installer: DAPHNEY ORELLANA ([id number])[facility] ([facility])[address] [place] [address] Potassium [Moles/Vol] 4.0 mmol/L Normal 3.5-5.1 [facility] Comment on above: Performed By: #### L AB17 ####Solar System Installer: DAPHNEY [id number])[facility] ([facility])[address] [place] [address] Protein [Mass/Vol] 6.0 g/dL Low 6.3-8.2 [facility] Comment on above: Performed By: #### L AB17 ####Solar System Installer: DAPHNEY ORELLANA ([id number])[facility] ([facility])[address] [place] [address] Sodium [Moles/Vol] 135 mmol/L Normal 135-145 [facility] Comment on above: Performed By: #### L AB17 ####Solar System Installer: DAPHNEY ORELLANA ([id number])[facility] ([facility])[address] [place] [address] Urea nitrogen [Mass/Vol] 6 mg/dL Low 7-17 [facility] Comment on above: Performed By: #### L AB17 ####Solar System Installer: DAPHNEY ORELLANA ([id number])[facility] ([facility])[address] [place] [address] Comprehensive metabolic 1998 panelon 02-16-2024 Albumin [Mass/Vol] 3.2 g/dL Low 3.5 - 5.0 g/dL [facility] ALP [Catalytic activity/Vol] 106 U/L 38 - 126 U/L [facility] ALT [Catalytic activity/Vol] 14 U/L 0 - 34 U/L [facility] Anion gap [Moles/Vol] 6 mmol/L 3 - 13 mmol/L [facility] AST [Catalytic activity/Vol] 18 U/L 15 - 46 U/L [facility] Bilirubin [Mass/Vol] 0.2 mg/dL 0.2 - 1.3 mg/dL [facility] Calcium [Mass/Vol] 7.8 mg/dL Low 8.4 - 10. 4 mg/dL [facility] Chloride [Moles/Vol] 111 mmol/L High 98 - 107 mmol/L [facility] CO2 [Moles/Vol] 18 mmol/L Low 22 - 30 mmol/L [facility] Creatinine [Mass/Vol] 0.32 mg/dL Low 0.52 - 1.04 mg/dL [facility] GFR/1.73 sq M.predicted (S/P/Bld) [Vol rate/Area] - PINF [facility] Comment on above: Calculation based on the Chronic Kidney Disease Epidemiology Collaboration (CKD-EPI) equation refit without adjustment for race Glucose [Mass/Vol] 170 mg/dL High 70 - 100 mg/dL [facility] Interpretation and review of laboratory results Abnormal [facility] Potassium [Moles/Vol] 4.0 mmol/L 3.5 - 5.1 mmol/L [facility] Protein [Mass/Vol] 6.0 g/dL Low 6.3 - 8.2 g/dL [facility] Sodium [Moles/Vol] 135 mmol/L 135 - 145 mmol/L [facility] Urea nitrogen [Mass/Vol] 6 mg/dL Low 7 - 17 mg/d L [facility] Albumin [Mass/Vol] 3.7 g/dL 3.5 - 5.0 g/dL [facility] ALP [Catalytic activity/Vol] 118 U/L 38 - 126 U/L [facility] ALT [Catalytic activity/Vol] 15 U/L 0 - 34 U/L [facility] Anion gap [Moles/Vol] 8 mmol/L 3 - 13 mmol/L [facility] AST [Catalytic activity/Vol] 27 U/L 15 - 46 U/L [facility] Bilirubin [Mass/Vol] 0.5 mg/dL 0.2 - 1.3 mg/dL [facility] Calcium [Mass/Vol] 9.4 mg/dL 8.4 - 10. 4 mg/dL [facility] Chloride [Moles/Vol] 109 mmol/L High 98 - 107 mmol/L [facility] CO2 [Moles/Vol] 17 mmol/L Low 22 - 30 mmol/L [facility] Creatinine [Mass/Vol] 0.36 mg/dL Low 0.52 - 1.04 mg/dL [facility] GFR/1.73 sq M.predicted (S/P/Bld) [Vol rate/Area] - PINF [facility] Comment on above: Calculation based on the Chronic Kidney Disease Epidemiology Collaboration (CKD-EPI) equation refit without adjustment for race Glucose [Mass/Vol] 178 mg/dL High 70 - 100 mg/dL [facility] Interpretation and review of laboratory results Abnormal [facility] Potassium [Moles/Vol] 3.8 mmol/L 3.5 - 5.1 mmol/L [facility] Protein [Mass/Vol] 6.7 g/dL 6.3 - 8.2 g/dL [facility] Sodium [Moles/Vol] 134 mmol/L Low 135 - 145 mmol/L [facility] Urea nitrogen [Mass/Vol] 9 mg/dL 7 - 17 mg/d L [facility] Consulton 02-16-2024 Consult Consult by Neonatology Request by OB: Jaydon Reason for Consult: 28 weeks with PROM, history of delivery, cerclage tHTN, T2DM, macrosomia Medications: Magnesium Sulfate, Ampicillin, Azithromycin, Insulin GTT, Betamethasone given: Labs: Blood type: O positive Antibody: negative GBS: unknown Hepatitis B Ag: negative RPR: NR Rubella: Immune HIV: negative Hepatitis C: negative GC/CT: HSV history: none reported Glucose challenge test: T2DM Present for Consult: Charmainefide enriquez Adeel Baby Sex: Male US findings: EDC by: 6 week US EFW: 1558 grams I discussed: Survival statistics Delivery room management: Delayed cord clamping, possible need for CPAP, Oxygen, intubation and surfactant. IV access, possible need for advanced resuscitation, possible need for umbilical lines. Baby is a full resuscitation. Respiratory distress syndrome Feeding with NG tube and benefit of MBM. Mom plans on providing MBM. Fortification of MBM. Feeding readiness and growth expectations, Risk of Necrotizing enterocolitis Jaundice and phototherapy Apnea of prematurity and caffeine Possible need for transfusion Heart Murmur: PDA Neurodevelopmental Outcome and Risk: IVH Retinopathy of prematurity Hearing problems Risk of infection- early and late onset Skin to skin opportunities Physiologic criteria for discharge and timing of discharge estimate from NICU Potential need for transfer to [facility]'s NICU if needs esclation of care, based on a variety of factors. Handouts given. No further questions. A/P: Patient is a 34 Year old G 5 P 3 At 28 Weeks With PROM, plan to remove cerclage today 1. Current Management per OB 2. NICU to attend delivery 3. Call NICU if further questions. Normal [facility] Laboratory - Chemistry and C hemistry - challengeon 02-16-2024 Glucose [Mass/Vol] 182 mg/dL High 70 - 100 mg/dL [facility] Glucose [Mass/Vol] 210 mg/dL High 70 - 100 mg/dL [facility] Glucose [Mass/Vol] 207 mg/dL High 70 - 100 mg/dL [facility] Glucose [Mass/Vol] 170 mg/dL High 70 - 100 mg/dL [facility] Glucose [Mass/Vol] 247 mg/dL High 70 - 100 mg/dL [facility] Glucose [Mass/Vol] 170 mg/dL High 70 - 100 mg/dL [facility] Glucose [Mass/Vol] 194 mg/dL High 70 - 100 mg/dL [facility] Glucose [Mass/Vol] 177 mg/dL High 70 - 100 mg/dL [facility] Glucose [Mass/Vol] 159 mg/dL High 70 - 100 mg/dL [facility] Glucose [Mass/Vol] 165 mg/dL High 70 - 100 mg/dL [facility] Glucose [Mass/Vol] 195 mg/dL High 70 - 100 mg/dL [facility] Glucose [Mass/Vol] 182 mg/dL High 70 - 100 mg/dL [facility] Glucose [Mass/Vol] 167 mg/dL High 70 - 100 mg/dL [facility] Glucose [Mass/Vol] 176 mg/dL High 70 - 100 mg/dL [facility] Beta hydroxybutyrate [Mass/Vol] 1.98 mg/dL 0.20 - 2.81 mg/dL [facility] Glucose [Mass/Vol] 190 mg/dL High 70 - 100 mg/dL [facility] Glucose [Mass/Vol] 206 mg/dL High 70 - 100 mg/dL [facility] Glucose [Mass/Vol] 185 mg/dL High 70 - 100 mg/dL [facility] Glucose [Mass/Vol] 192 mg/dL High 70 - 100 mg/dL [facility] N. gonorrhoeae DNA MERRY+probe Ql (Cervical mucus)on 02-16-2024 C. trachomatis DNA MERRY+probe Ql (Unsp spec) Not detected Not Detected [facility] Interpretation and review of laboratory results Normal [facility] N gonorrhoeae, DNA Probe Not detected Not Detec alan [facility] Methodology: real-time PCR This test is intended for medical purposes only and is not intended for the evaluation of suspected sexual abuse or for other forensic purposes. In certain contexts, culture may be required to meet applicable laws and regulations for diagnosis of C. trachomatis and N. gonorrhoeae infections. Per 2014 CDC recommmendations, this test does not include confirmation of positive results by an alternative nucleic acid target. A negative result does not exclude the possibility of infection. A result of invalid indicates that a new specimen should be collected if clinically indicated. [employer] No Panel Informationon 02-15 Interpretation and review of laboratory results Abnormal [employer] [facility] Performed by: [facility] [place] [facility], [address] [place] [address] CLIA ID: [id number] [facility] Interpretation and review of laboratory results Abnormal [employer] [facility] Performed by: [facility] [place] [facility], [address] [place] [address] [place] [address] CLIA ID: [id number] [employer] [facility] Interpretation and review of laboratory results Abnormal [employer] [facility] Performed by: [email or web address] [facility], [address] [place] [address], [place] [address] CLIA ID: [id number] [employer] [facility] Interpretation and review of laboratory results Abnormal [employer] [facility] Performed by: [facility] [place] [facility], [address] [place] [address], [facility] [address] CLIA ID: [id number] [employer] [facility] Interpretation and review of laboratory results Abnormal [employer] [facility] Performed by: [facility], [address] [place] [address] CLIA ID: [id number] [facility] Interpretation and review of laboratory results Abnormal [employer] [facility] Performed by: [employer] [facility], [address] [place] [address] [place] [address] CLIA ID: [id number] [facility] - Mandujano live intrauterine at 28w 0d. - The amniotic fluid index is 7.7cm, which is within normal limits. - Reassuring biophysical profile, 12/30. -Cephalic presentation noted today. An anatomy scan has previously been performed at [facility] and she actually had a scan yesterday showing overgrowth and upper limits normal TRACEY at 23 cm see IP note from today Ultrasound is not diagnostic of chromosomal aneuploidy and does not detect all subtle defects. Normal ultrasound findings do not guarantee normal outcomes. [employer] RADIOLOGY SYSTEM OBSTETRICS REPORT (Signed Final 02/16/2024 12:48 pm) PATIENT INFO: ID #: [id number] : [birth year] (34 yrs)(F) Name: CHARMAINE AVILA Visit Date: 02/16/2024 08:45 am PERFORMED BY: Attending: Nicol Interiano MD Performed By: Chiquita Hastings Referred By: LARS LEO MD Location: [facility] Visit Type: Inpatient - Hospital SERVICE(S) PROVIDED: [place] w/out LIUDMILAT [address] INDICATIONS: Premature rupture of membranes, O42.90 unspecified as to length of time between rupture and onset of labor, unspecified weeks of gestation Obesity AMA Diabetes Cerclage [facility] Patient (Growth 02/14) VITAL SIGNS: Weight (lb): 245 Height: 5'8" BMI: 37.25 EVALUATION: Num Of Fetuses: 1 Heart Rate(bpm): 142 Cardiac Activity: Regular rhythm Lie: Longitudinal Presentation: Cephalic Placenta: Anterior Amniotic Fluid TRACEY FV: Within normal limits TRACEY Sum(cm) %Tile Largest Pocket(cm) 7.7 < 3 4 RUQ(cm) RLQ(cm) LUQ(cm) LLQ(cm) 2.9 0 4 0.8 BIOPHYSICAL EVALUATION: Amniotic F.V: Within normal limits F. Tone: Observed F. Movement: Observed Score: 12/30 F. Breathing: Observed BIOMETRY: GESTATIONAL AGE: Clinical LEELA: 28w 0d LEELA: 05/10/24 Best: 28w 0d Det. By: Clinical LEELA LEELA: 05/10/24 Nicol Interiano MD Electronically Signed Final Report 02/16/2024 12:48 pm [facility] Nicol Interiano MD - 02/16/2024 OBSTETRICS REPORT (Signed Final 02/16/2024 12:48 pm) PATIENT INFO: ID #: [id number] : [birth year] (34 yrs)(F) Name: CHARMAINE AVILA Visit Date: 02/16/2024 08:45 am PERFORMED BY: Attending: Nicol Interiano MD Performed By: Chiquita Hastings Referred By: LARS LEO MD Location: [facility] Visit Type: Inpatient - Hospital SERVICE(S) PROVIDED: [facility] [place] w/out NST [id number] INDICATIONS: Premature rupture of membranes, O42.90 unspecified as to length of time between rupture and onset of labor, unspecified weeks of gestation Obesity AMA Diabetes Cerclage [facility] Patient (Growth 02/14) VITAL SIGNS: Weight (lb): 245 Height: 5'8" BMI: 37.25 EVALUATION: Num Of Fetuses: 1 Heart Rate(bpm): 142 Cardiac Activity: Regular rhythm Lie: Longitudinal Presentation: Cephalic Placenta: Anterior Amniotic Fluid TRACEY FV: Within normal limits TRACEY Sum(cm) %Tile Largest Pocket(cm) 7.7 < 3 4 RUQ(cm) RLQ(cm) LUQ(cm) LLQ(cm) 2.9 0 4 0.8 BIOPHYSICAL EVALUATION: Amniotic F.V: Within normal limits F. Tone: Observed F. Movement: Observed Score: 12/30 F. Breathing: Observed BIOMETRY: GESTATIONAL AGE: Clinical LEELA: 28w 0d LEELA: 05/10/24 Best: 28w 0d Det. By: Clinical LEELA LEELA: 05/10/24 Nicol Interiano MD Electronically Signed Final Report 02/16/2024 12:48 pm IMPRESSION: - Mandujano live intrauterine at 28w 0d. - The amniotic fluid index is 7.7cm, which is within normal limits. - Reassuring biophysical profile, 12/30. -Cephalic presentation noted today. An anatomy scan has previously been performed at [facility] and she actually had a scan yesterday showing overgrowth and upper limits normal TRACEY at 23 cm see IP note from today Ultrasound is not diagnostic of chromosomal aneuploidy and does not detect all subtle defects. Normal ultrasound findings do not guarantee normal outcomes. [facility] Interpretation and review of laboratory results Abnormal [facility] Performed by: [facility] [email or web address] [facility], [address] [place] [address] CLIA ID: [id number] [facility] Interpretation and review of laboratory results Abnormal [facility] Performed by: [facility], [address] [place] [address] CLIA ID: [id number] [facility] Interpretation and review of laboratory results Abnormal [facility] Performed by: [facility], [address] [place] [address] CLIA ID: [id number] [facility] Interpretation and review of laboratory results Abnormal [facility] Performed by: [facility], [address] [place] [address] CLIA ID: [id number] [facility] Radiology Study observation (narrative) [facility] Interpretation and review of laboratory results Abnormal [facility] Performed by: [facility], [address] [place] [address] CLIA ID: [id number] [facility] Interpretation and review of laboratory results Abnormal [facility] Performed by: [facility], [address] [place] [address] CLIA ID: [id number] [facility] Interpretation and review of laboratory results Abnormal [facility] Performed by: [facility], [address] [place] [address] CLIA ID: [id number] [facility] Interpretation and review of laboratory results Abnormal [facility] Performed by: [facility], [address] [place] [address] CLIA ID: [id number] [facility] Interpretation and review of laboratory results Normal [facility] Interpretation and review of laboratory results Abnormal [facility] Performed by: [facility], [address] [place] [address], [facility] [address] CLIA ID: [id number] [facility] Interpretation and review of laboratory results Abnormal [facility] Performed by: [facility], [address] [facility], [place] [address] CLIA ID: [id number] [facility] Interpretation and review of laboratory results Abnormal [facility] Performed by: [facility], [address] [place] [address], [place] [address] CLIA ID: [id number] [facility] Interpretation and review of laboratory results Abnormal [facility] Performed by: [facility], [address] [place] [address], [facility] [address] CLIA ID: [id number] [facility] No Panel InformationOrdered By: Nicol Interiano on 02-16-2024 [facility] Work Phone: Progress Noteon 02-16-2024 Progress Note Notified by RN of pinching vaginal sensation that acutely changed. Patient resting in bed comfortable appearing. SSE perfomed, cervix difficult to see, but multiparous appearing. SVE performed and closed. FHT Cat I. No CTX on toco. Patient recently received vistaril for anxiety. Plan for tylenol and heating pad. Will continue to monitor at this time. Normal [facility] Progress Note Patient states she is feeling more pressure. Repeat SSE unchanged from prior. No contractions on toco. Will continue to monitor at this time. FHT remains Cat I and VSS. Pauline Zacarias DO 02/16/2024 12:27 PM Normal [facility] Progress Note Patient with elevated WBC at 16.5 and patient's pulse elevated 100-110s. Patient was significant history of PTL and chorioamnionitis. Due to this, decision made to proceed with cerclage removal. Patient was placed in the dorsal lithotomy position. Dr. Chu at bedside to remove cerclage. Speculum inserted and clear view of blue strings optained. Elevated with long pick ups and left side of suture cut below knot. Cerclage removed in 1 pull. SVE after removal was 0/50/-3. Will continue to monitor for signs of PTL. FHT remains Cat I at this time with moderate variability and accelerations. Pauline Zacarias DO 02/16/2024 10:17 AM Normal [facility] Progress Note ---- Attestation signed by Nicol Interiano MD at 02/18/2024 1:02 PM (Updated) I independently saw and evaluated the patient. I agree with the findings and plan of care as documented in the resident's note. Admitted overnight on insulin gtt managed by ICU overnight and given BMZ this am told to come to [facility] to avoid being from her baby" normally gets all cares at [facility]. Reports pain in lower abdomen and is concerned given her history of infection regarding keeping the cerclage in place. No vaginal bleeding, clear fluid Cat 1 tracing difficult to monitor contractions, but palpated contraction at the bedside 34 yr old at 28 0/7 GA with the following: PPROM with cerclage placement this . History of PPROM/PTD and subsequent chorio with her recent G4. Given her current contractions with pain will remove the cerclage. She is cephalic on today's ultrasound and discussed the R/B/A of cerclage removal vs keeping in place and the controversy with patients. Higher risk for sepsis with cerclage left in situ and given her current borderline pulse of 94-110 and elevated WBC along with her history plan removal. Discussed by removing this does not necessarily mean she will go on to labor and delivery and would still expectantly manage as long as no signs of chorioamnionitis Prematurity yesterday scan at her OB revealed overgrowth and this was discussed and plan for consultation with higher risk for hypoglycemia given prematurity and higher BGT. Patient reports being controlled this but has recently been taking in more sugar from [place] consumption. On magnesium for neuroprotection, okay to discontinue at 12 hours. BMZ x one with repeat planned. No tocolysis is indicated given PPROM T2DM on insulin gtt overnight per Dr. Miranda managed by ICU attending. Will discontinue to plan for split dose insulin and continued Metformin 1000mg BID History of demise after PPROM at periviable GA poor obstetrical history consider CLP consult given her possible concerns for PTSD History of manual extraction of placenta and D&C would consent again after this delivery given history at risk for PPH, OB team is aware Asthma spots induced Tobacco usage offer replacement Desire for BTL will sign consent but if vaginal this may need to be performed as interval care all through [facility] offer Tdap + flu shot while IP if stable Ongoing IP management and control of T2DM with expectant management and cerclage removal planned for today. No signs of chorio and follow closely for any signs. Okay for continued latency ABX and plan on BMZ second shot. S/p magnesium for neuroprotection. SCD while in the bed now as well given her obesity. Okay for if labor or planned IOL. At risk for PPH and retained placenta will address with OB team as may need a second IV/consideration of D&C consent if labor. Hemoglobin is currently 11.1 I spent 45 minutes in the visit today on the floor reviewing the chart, discussing the case with the residency staff and nursing Nicol Interiano MD ---- Maternal Medicine Service Resident Progress Note 02/16/2024 6:13 AM 02/15/2024 Hospital Day: 2 Charmaine Avila, 34 y.o. 29w5d Patient has been seen and examined. Pt reports intermittent twinges of pressure and pain that shoots from the top of her abdomen to her inner thighs. Abdomen overall nontender to palpation and patietn remains afebrile. Discussed repeating SSE this Am and concern for laboring with cerclage in place. Positive movement Negative vaginal bleeding Positive LOF Positive Contractions Vitals: 02/16/24 0312 02/16/24 0400 02/16/24 0405 02/16/24 0428 BP: Pulse: 110 97 Resp: Temp: 36.7 ?C (98.1 ?F) TempSrc: Oral SpO2: Weight: 245 lb (111 kg) Height: 5' 8" (1.727 m) FHT: 140, moderate variability Accels: present Decels: absent Contractions: none Physical Exam: Gen: NAD HEENT: Normocephalic, Atraumatic, EOMI, MMM Resp: Equal chest rise bilaterally Abd: soft, gravid, NTND, no rebound, no guarding. No fundal tenderness Ext: No LE edema, no calf tenderness or swelling Medications: Current Facility-Administer ed Medications Medication Dose Route Frequency Provider Last Rate Last Admin ampicillin (Omnipen) 2,000 mg in sodium chloride 0.9 % 100 mL IVPB 2,000 mg IntraVENous 4 times per day Irasema Paredes DO Stopped at 02/16/24 0114 Followed by [START ON 02/18/2024] amoxicillin (Amoxil) capsule 500 mg 500 mg Oral 3 times per day Irasema Paredes DO azithromycin (Zithromax) 500 mg in sodium chloride 0.9 % 250 mL IVPB (ADD-Sabina) 500 mg IntraVENous q24h A (more content not included)... Normal [facility] Progress Note Late note due to patient care. Been in patient's room a number of times this evening. Consented for BTL, form in chart. Patient was complaining of some intermittent cramping but was not requiring pain medications. Cat I FHT. Had rare variable deceleration. Remained reassuring with moderate variability. TOCO adjusted many times. Discussed with patient insulin gtt. Insulin on admisison was 233. Placed on drip and down to 213, 192 [address] Miranda who recommended that if BGT dropped to 175 or lower, then plan for BMZ. Next BGT was elevated at 206. Dr. Miranda updated. Magnesium sulfate running for neuroprotection. Urine output adequate per RN. Discussed that if Cat II FHT, vaginal bleeding or worsening pain, will plan to remove the cerclage. At this time, plan to keep the cerclage in place. NICU consulted. Followup BGT was 206. RN not aware of patient snacking as patient is NPO. Patient has been napping on my exam. Discussed with Dr. Miranda. CMP previously collected noted low NA at 134, normal potassium at 3.8. CO2 slightly decreased at 17. Normal LFTs and Cr. Dr. Miranda recommending Kcl. Reviewed protocol. Recommendation of 20meq of KCL. Confirmed with Pharmacy about running lines and compatible with Magnesium sulfate and D5. Discussed with Dr. Montero of ICU for further BGT recommendations per Dr. Miranda request. Current Insulin GTT had values for >[address] Montero received TDD of insulin and notes that we are likely under giving based on home regimen. He reviewed lab data with normal AG. Recommends new Insulin drip doses: 141-160: 2u 161-180: 4u 181-200 5u >200: 6u and Call MD Next BGT due in five minutes. Will assess. Plan per Dr. Montero that BMZ can safely be given if two consecutive drops on BGTs. Reviewed new information with Dr. Miranda who is in agreement of plan. Appreciate excellent recommendations of Dr. Montero. Vikki Díaz, DO 02/16/2024 3:22 AM Normal [facility] S. agalactiae DNA MERRY+probe Ql (Unsp spec)on 02-16-2024 Group B Strep Screen Not detected Not Detected [facility] Interpretation and review of laboratory results Normal [facility] Methodology: real-time PCR [facility] T. vaginalis DNA MERRY+probe Q l (Genital specimen)on 02-16-2024 Interpretation and review of laboratory results Normal [facility] Trichomonas vaginalis Not detected Not Detected [facility] Methodology: real-time PCR A negative result does not completely rule out infection with T. vaginalis. Results should be interpreted in conjunction with other clinical data. This test has not been validated for use with self-collected vaginal swab specimens from patients. This test is intended for medical purposes only and is not intended for the evaluation of suspected sexual abuse or for other forensic purposes. [facility] BIOPHYSICAL PROFILE WO NON STRESS TESTINGon 02-16-2024 BIOPHYSICAL PROFILE WO NON STRESS TESTING OBSTETRICS REPORT (Signed Final 02/16/2024 12:48 pm) PATIENT INFO: ID #: [id number] : [birth year] (34 yrs)(F) Name: CHARMAINE AVILA Visit Date: 02/16/2024 08:45 am PERFORMED BY: Attending: Nicol Interiano MD Performed By: Chiquita Hastings Referred By: LARS LEO MD Location: [facility] Visit Type: Inpatient - Hospital SERVICE(S) PROVIDED: [facility] [place] w/out NST [address] INDICATIONS: Premature rupture of membranes, O42.90 unspecified as to length of time between rupture and onset of labor, unspecified weeks of gestation Obesity AMA Diabetes Cerclage [facility] Patient (Growth 02/14) VITAL SIGNS: Weight (lb): 245 Height: 5'8" BMI: 37.25 EVALUATION: Num Of Fetuses: 1 Heart Rate(bpm): 142 Cardiac Activity: Regular rhythm Lie: Longitudinal Presentation: Cephalic Placenta: Anterior Amniotic Fluid TRACEY FV: Within normal limits TRACEY Sum(cm) %Tile Largest Pocket(cm) 7.7 < 3 4 RUQ(cm) RLQ(cm) LUQ(cm) LLQ(cm) 2.9 0 4 0.8 BIOPHYSICAL EVALUATION: Amniotic F.V: Within normal limits F. Tone: Observed F. Movement: Observed Score: 8 F. Breathing: Observed BIOMETRY: GESTATIONAL AGE: Clinical LEELA: 28w 0d LEELA: 05/10/24 Best: 28w 0d Det. By: Clinical LEELA LEELA: 05/10/24 Nicol Interiano MD Electronically Signed Final Report 02/16/2024 12:48 pm IMPRESSION: - Mandujano live intrauterine at 28w 0d. - The amniotic fluid index is 7.7cm, which is within normal limits. - Reassuring biophysical profile, 12/30. -Cephalic presentation noted today. An anatomy scan has previously been performed at [facility] and she actually had a scan yesterday showing overgrowth and upper limits normal TRACEY at 23 cm see IP note from today Ultrasound is not diagnostic of chromosomal aneuploidy and does not detect all subtle defects. Normal ultrasound findings do not guarantee normal outcomes. Normal [facility] ABO and Rh group Confirm Nom (Bld)on 02-15-2024 ABO group Nom (Bld) O [facility] D Ag Ql (RBC) Positive [facility] BETA HYDROXYBUTYRATEon 02-14 BETA HYDROXYBUTYRATE 1.98 mg/dL Normal 0.20-2.81 [facility] Comment on above: Performed By: #### L [id number], [id number] #### Solar System Installer: DAPHNEY ORELLANA ([id number]) [facility] ([facility]) [address] [place] [address] BLOOD TYPE AND SCREEN GELon 02-15-2024 ABO GROUPING O Normal [facility] Comment on above: Order Comment: HOLD. Specimen is valid for 3 days - nurse to verify valid specimen Performed By: #### L [id number] ####Solar System Installer: DAPHNEY ORELLANA ([id number])[facility] BLOOD BANK ([facility])[address] [place] [address] RH TYPE IN BLOOD Positive Normal [facility] Comment on above: Order Comment: HOLD. Specimen is valid for 3 days - nurse to verify valid specimen Performed By: #### L [id number] ####Solar System Installer: DAPHNEY ORELLANA ([id number])[facility] BLOOD BANK ([facility])[address] [place] [address] Blood type and Crossmatch pa shayla (Bld)on 02-15-2024 ABO group Nom (Bld) O [facility] Blood group antibody screen GEL Ql Negative [facility] D Ag Ql (RBC) Positive [facility] h [facility] CBC (HEMOGRAM)on 02-15-2024 Erythrocyte distribution width (RBC) [Ratio] 13.5 % Normal 11.5-15.0 [facility] Comment on above: Performed By: #### L [id number] ####Solar System Installer: DAPHNEY ORELLANA ([id number])[facility] ([facility])[address] [place] [address] Hematocrit (Bld) [Volume fraction] 34.9 % Low 35.0-47.0 [facility] Comment on above: Performed By: #### L [id number] ####Solar System Installer: DAPHNEY ORELLANA ([id number])[facility])[address] [place] [address] Hemoglobin (Bld) [Mass/Vol] 11.9 g/dL Normal 11.7-16.0 [facility] Comment on above: Performed By: #### L [id number] ####Solar System Installer: DAPHNEY ORELLANA ([id number])[facility])[address] [place] [address] MCH (RBC) [Entitic mass] 29.2 pg Normal 26.0-34.0 [facility] Comment on above: Performed By: #### L [id number] ####Solar System Installer: DAPHNEY ORELLANA ([id number])[facility])[address] [place] [address] MCHC 34.1 % Normal 30.5-36.0 [facility] Comment on above: Performed By: #### L [id number] ####Solar System Installer: DAPHNEY ORELLANA ([id number])[facility] ([facility])[address] [place] [address] MCV (RBC) [Entitic vol] 85.5 fL Normal 77.0-99.0 [facility] Comment on above: Performed By: #### L [id number] ####Solar System Installer: DAPHNEY ORELLANA ([id number])[facility])[address] [place] [address] Platelet mean volume (Bld) [Entitic vol] 9.8 fL Normal 9.0-12.7 [facility] Comment on above: Performed By: #### L [id number] ####Solar System Installer: DAPHNEY ORELLANA ([id number])[facility])[address] [place] [address] Platelets (Bld) [#/Vol] 198 10*3/uL Normal 140-440 [facility] Comment on above: Performed By: #### L [id number] ####Solar System Installer: DAPHNEY ORELLANA ([id number])[facility])[address] [place] [address] RBC (Bld) [#/Vol] 4.08 10*6/uL Normal 3.80-5.20 [facility] Comment on above: Performed By: #### L [id number] ####Solar System Installer: DAPHNEY ORELLANA ([id number])[facility])[address] [place] [address] WBC (Bld) [#/Vol] 17.8 10*3/uL High 3.6-10.7 [facility] Comment on above: Performed By: #### L [id number] ####Solar System Installer: DAPHNEY ORELLANA ([id number])[facility] ([facility])[address] [place] [address] CBC panel Auto (Bld)on 02-14 Erythrocyte distribution width (RBC) [Ratio] 13.5 % 11.5 - 15.0 % [facility] Hematocrit (Bld) [Volume fraction] 34.9 % Low 35.0 - 47.0 % [facility] Hemoglobin (Bld) [Mass/Vol] 11.9 g/dL 11.7 - 16.0 g/dL [facility] Interpretation and review of laboratory results Abnormal [facility] MCH (RBC) [Entitic mass] 29.2 pg 26.0 - 34.[address] [facility] MCHC (RBC) [Mass/Vol] 34.1 % 30.5 - 36.0 % [facility] MCV (RBC) [Entitic vol] 85.5 fL 77.0 - 99.[address] [facility] Platelet mean volume (Bld) [Entitic vol] 9.8 fL 9.0 - 12.[address] [facility] Platelets (Bld) [#/Vol] 198 10*3/uL 140 - 440 10*3/uL [facility] RBC (Bld) [#/Vol] 4.08 10*6/uL 3.80 - 5.2 0 10*6/uL [facility] WBC (Bld) [#/Vol] 17.8 10*3/uL High 3.6 - 10.7 10*3/uL [facility] CHLAMYDIA/GONORRHEAon 2023 CHLAMYDIA/GONORRHEA NEISSERIA GONORRHOEAE DNA PROBE Reference Not Detected Not Detected CHLAMYDIA TRACHOMATIS DNA PROBE Reference Not Detected Not Detected ORDER COMMENTS: Methodology: real-time PCR This test is intended for medical purposes only and is not intended for the evaluation of suspected sexual abuse or for other forensic purposes. In certain contexts, culture may be required to meet applicable laws and regulations for diagnosis of C. trachomatis and N. gonorrhoeae infections. Per 2014 CDC recommmendations, this test does not include confirmation of positive results by an alternative nucleic acid target. A negative result does not exclude the possibility of infection. A result of invalid indicates that a new specimen should be collected if clinically indicated. Normal [facility] Comment on above: Performed By: #### L [id number], [id number] #### Solar System Installer: DAPHNEY ORELLNAA ([id number]) [facility] ([facility]) [address] [place] [address] COMPREHENSIVE METABOLIC PANE Edin 02-15-2024 Albumin [Mass/Vol] 3.7 g/dL Normal 3.5-5.0 [facility] Comment on above: Performed By: #### L [id number], [id number] #### Solar System Installer: DAPHNEY ORELLANA ([id number]) [facility] ([facility]) [address] [place] [address] ALP [Catalytic activity/Vol] 118 U/L Normal 38-126 [facility] Comment on above: Performed By: #### L [id number], [id number] #### Solar System Installer: DAPHNEY ORELLANA ([id number]) [facility] ([facility]) [address] [place] [address] ALT [Catalytic activity/Vol] 15 U/L Normal 0-34 [facility] Comment on above: Performed By: #### L AB17, [id number] #### Solar System Installer: DAPHNEY ORELLANA ([id number]) [facility] ([facility]) [address] [place] [address] Anion gap [Moles/Vol] 8 mmol/L Normal 3-13 [facility] Comment on above: Performed By: #### L AB17, [id number] #### Solar System Installer: DAPHENY ORELLANA ([id number]) [facility] ([facility]) [address] [place] [address] AST [Catalytic activity/Vol] 27 U/L Normal 15-46 [facility] Comment on above: Performed By: #### L AB17, [id number] #### Solar System Installer: DAPHNEY ORELLANA ([id number]) [facility]) [address] [place] [address] Bilirubin [Mass/Vol] 0.5 mg/dL Normal 0.2-1.3 [facility] Comment on above: Performed By: #### L [id number], [id number] #### Solar System Installer: DAPHNEY ORELLANA ([id number]) [facility] ([facility] [address] [place] [address] Calcium [Mass/Vol] 9.4 mg/dL Normal 8.4-10.4 [facility] Comment on above: Performed By: #### L AB17, [id number] #### Solar System Installer: DAPHNEY ORELLANA ([id number]) [facility] ([facility] [address] [place] [address] [place] Chloride [Moles/Vol] 109 mmol/L High 98-107 [facility] Comment on above: Performed By: #### Yvette [id number], [id number] #### Solar System Installer: DAPHNEY ORELLANA ([id number]) [facility] ([facility]) [address] [place] [address] CO2 [Moles/Vol] 17 mmol/L Low 22-30 [facility] Comment on above: Performed By: #### Yvette MILAN, [id number] #### Solar System Installer: DAPHNEY ORELLANA ([id number]) [facility] ([facility]) [address] [place] [address] [place] Creatinine [Mass/Vol] 0.36 mg/dL Low 0.52-1.04 [facility] Comment on above: Performed By: #### L AB17, [id number] #### Solar System Installer: DAPHNEY ORELLANA ([id number]) [facility] ([facility]) [address] [place] [address] [place] GLOMERULAR FILTRATION RATE ML/MIN/1.73 SQ M.PREDICTED >90.0 Normal >60.0 [facility] Comment on above: Result Comment: Calc ulation based on the Chronic Kidney Disease Epidemiology Collaboration (CKD-EPI) equation refit without adjustment for race Performed By: #### L AB17, [id number] #### Solar System Installer: DAPHNEY ORELLANA ([id number]) [facility] ([facility]) [address] [place] [address] [place] Glucose [Mass/Vol] 178 mg/dL High 70-100 [facility] Comment on above: Performed By: #### L AB17, [id number] #### Solar System Installer: DAPHNEY ORELLANA ([id number]) [facility] ([facility]) [address] [place] [address] Potassium [Moles/Vol] 3.8 mmol/L Normal 3.5-5.1 [facility] Comment on above: Performed By: #### L AB17, [id number] #### Solar System Installer: DAPHNEY ORELLANA ([id number]) [facility] ([facility]) [address] [place] [address] Protein [Mass/Vol] 6.7 g/dL Normal 6.3-8.2 [facility] Comment on above: Performed By: #### L AB17, [id number] #### Solar System Installer: DAPHNEY ORELLANA ([id number]) [facility] ([facility]) [address] [place] [address] Sodium [Moles/Vol] 134 mmol/L Low 135-145 [facility] Comment on above: Performed By: #### L AB17, [id number] #### Solar System Installer: DAPHNEY ORELLANA ([id number]) [facility] ([facility]) [address] [place] [address] Urea nitrogen [Mass/Vol] 9 mg/dL Normal 7-17 [facility] Comment on above: Performed By: #### L AB17, [id number] #### Solar System Installer: DAPHNEY ORELLANA ([id number]) [facility] ([facility]) [address] [place] [address] Examination level ultrasound on 02-15-2024 [facility] Radiology Study observation (narrative) [facility] GROUP B STREP SCREEN BY PCRo n 02-15-2024 GROUP B STREP SCREEN BY PCR GROUP B STREP SCREEN BY PCR Reference Not Detected Not Detected ORDER COMMENTS: Methodology: real-time PCR Normal [facility] Comment on above: Performed By: #### L [id number] ####Solar System Installer: DAPHNEY ORELLANA ([id number])[facility] ([facility])[address] [place] [address] [place] HEMOGLOBIN A1Con 02-15-2024 Glucose [Mass/Vol] 166 mg/dL Normal [facility] Comment on above: Performed By: #### L [id number] ####Solar System Installer: DAPHNEY ORELLANA ([id number])[facility] ([facility])[address] [place] [address] HbA1c (Bld) [Mass fraction] 7.4 % High <5.7 [facility] Comment on above: Result Comment: Norm al less than 5.7% Prediabetes 5.7% to 6.4% Diabetes 6.5% or higher --HgbA1C levels may not be accurate in patients who have renal disease, received recent blood transfusions, are anemic, or who have dyshemoglobinemia. Performed By: #### L AB90 ####Solar System Installer: DAPHNEY ORELLANA ([id number])[facility] ([facility] [place] [address] Laboratory - Chemistry and C hemistry - challengeon 02-15-2024 Average glucose Estimated from glycated hemoglobin (Bld) [Mass/Vol] 166 mg/dL [facility] Glucose [Mass/Vol] 213 mg/dL High 70 - 100 mg/dL [facility] Glucose [Mass/Vol] 233 mg/dL High 70 - 100 mg/dL [facility] Laboratory - Hematology and Cell countson 02-15-2024 HbA1c (Bld) [Mass fraction] 7.4 % High NINF - 5.7 % [facility] Comment on above: Normal less than 5.7 % Prediabetes 5.7% to 6.4% Diabetes 6.5% or higher --HgbA1C levels may not be accurate in patients who have renal disease, received recent blood transfusions, are anemic, or who have dyshemoglobinemia. No Panel Informationon 02-14 Interpretation and review of laboratory results Abnormal [facility] Interpretation and review of laboratory results Abnormal [facility] Performed by: [facility], [address] [place] [address] CLIA ID: [id number] [facility] FERN PATTERN Fern pattern present [facility] Interpretation and review of laboratory results Abnormal [facility] Interpretation and review of laboratory results Abnormal [facility] Performed by: [facility], [address] [place] [address] CLIA ID: [id number] [facility] Progress Noteon 02-15-2024 Progress Note Department of Obstetrics and Gynecology Labor and Delivery Triage Note CHIEF COMPLAINT: r/o PPROM HISTORY OF PRESENT ILLNESS: The patient is a 34 y.o. 29w4d. OB History 5 Para 3 Term 2 1 AB 1 Living 3 SAB 1 IAB Ectopic Multiple Live Births 3 Patient presents with a chief complaint as above. Reports ROM at 2000. Was filing paperwork and felt a gush of fluid. Follows with Dr. Bravo at [facility]/Dr. Sanon at [facility]. Compliant with care. Dated by 7w US. T2DM on insulin. Obesity. Tobacco abuse 1/2 PPD. Hx of PPROM at 16w with demise nad PPROM at 25w with delivery. Otherwise, two term vaginal deliveries both 9lb. Cerclage placed at 12w GA, Surgeries with lap brando, D&Cs x6 (bleeding and following 16w loss) Patient denies any fever, chills, nausea, vomiting, chest pain, shortness of breath, abdominal pain or headaches. Denies DFM/VB/CTX Estimated Due Date: Estimated Date of Delivery: 04/28/24 PAST MEDICAL HISTORY: Past Medical History: Diagnosis Date Asthma Atrial fibrillation (HCC) Diabetes mellitus (HCC) Retained placenta PAST SURGICAL HISTORY: Past Surgical History: Procedure Laterality Date CHOLECYSTECTOMY DILATION AND CURETTAGE OF UTERUS SOCIAL HISTORY: Social History Socioeconomic History Marital status: Single Spouse name: Not on file Number of children: Not on file Years of education: Not on file Highest education level: Not on file Occupational History Not on file Tobacco Use Smoking status: Every Day Current packs/day: 0.50 Types: Cigarettes Smokeless tobacco: Never Substance and Sexual Activity Alcohol use: Not Currently Drug use: Not Currently Sexual activity: Not on file Other Topics Concern Not on file Social History Narrative Not on file Social Determinants of Health Financial Resource Strain: Not on file Food Insecurity: Not on file Transportation Needs: Not on file Physical Activity: Not on file Stress: Not on file Social Connections: Not on file Intimate Partner Violence: Not on file Housing Stability: Not on file MEDICATIONS: Current Facility-Administer ed Medications: [START ON 02/16/2024] ampicillin (Omnipen) 2,000 mg in sodium chloride 0.9 % 100 mL IVPB, 2,000 mg, IntraVENous, 4 times per day FOLLOWED BY [START ON 02/18/2024] amoxicillin (Amoxil) capsule 500 mg, 500 mg, Oral, 3 times per day, Irasema Schlieper, DO azithromycin (Zithromax) 500 mg in sodium chloride 0.9 % 250 mL IVPB (ADD-Sabina), 500 mg, IntraVENous, q24h FOLLOWED BY [START ON 02/17/2024] azithromycin (Zithromax) tablet 500 mg, 500 mg, Oral, Daily, Irasema Schlieper, DO calcium gluconate 10 % injection 1 g, 1 g, IntraVENous, PRN, Irasema Schlieper, DO dextrose 5 % and sodium chloride 0.45 % infusion, 125 mL/hr, IntraVENous, Continuous, Irasema Schlieper, DO dextrose 5 % infusion, 100 mL/hr, IntraVENous, PRN, Irasema Schlieper, DO dextrose 50 % solution 12.5 g, 12.5 g, IntraVENous, PRN, Irasema Schlieper, DO glucagon (human recombinant) injection 1 mg, 1 mg, IntraMUSCular, PRN, Irasema Schlieper, DO glucose oral gel 15 g, 15 g, Oral, PRN, Irasema Schlieper, DO [START ON 02/16/2024] influenza vac tiss-cult subunt (Flucelvax) injection 0.5 mL, 0.5 mL, IntraMUSCular, Once, Irasema Schlieper, DO insulin regular 100 units in 100 mL NS (Myxredlin) infusion (premix), 1-50 Units/hr, IntraVENous, Continuous, Irasema Schlieper, DO lactated ringers infusion, 125 mL/hr, IntraVENous, Continuous, Irasema Schlieper, DO magnesium sulfate 20 GM/500ML infusion, 2,000 mg/hr, IntraVENous, Continuous, Irasema Schlieper, DO magnesium sulfate IVPB premix 4,000 mg, 4,000 mg, IntraVENous, Once, Irasema Schlieper, DO [START ON 02/16/2024] nicotine (Nicoderm, Step 1) 21 MG/24HR patch 1 patch, 1 patch, TransDERmal, Daily FOLLOWED BY [START ON 03/29/2024] nicotine (Nicoderm, Step 2) 14 MG/24HR patch 1 patch, 1 patch, TransDERmal, Daily FOLLOWED BY [START ON 04/12/2024] nicotine (Nicoderm, Step 3) 7 MG/24HR patch 1 patch, 1 patch, TransDERmal, Daily, Vikki Bre, DO nicotine polacrilex (Nicorette) gum 4 mg, 4 mg, Mouth/Throat, q1h PRN, Vikki Bre, DO ondansetron ODT (Zofran-ODT) disintegrating tablet 4 mg, 4 mg, Oral, q8h PRN OR ondansetron (Zofran) injection 4 mg, 4 mg, IntraVENous, q6h PRN, Irasema Schlieper, DO polyethylene glycol (PEG) 3350 (Miralax) packet 17 g, 17 g, Oral, Daily PRN, Irasema Schlieper, DO [START ON 02/16/2024] vitamin tablet, 1 tablet, Oral, Daily, Irasema Schlieper, DO sodium chloride 0.9 % infusion, 5-250 mL/hr, IntraVENous, PRN, Irasema Schlieper, DO sodium chloride 0.9% (NS) flush 10 mL, 10 mL, IntraVENous, 2 times per day, Irasema Schlieper, DO sodium chloride 0.9% (NS) flush 10 mL, 10 mL, IntraVENous, PRN, Irasema Schlieper, DO CARE: Complicated by: Hx of PPROM x2 Hx of PTD Obesity Tobacco abuse T2DM Anxiety REVIEW OF S (more content not included)... Normal [facility] TRICHOMONAS VAGINALIS PCRon 02-15-2024 TRICHOMONAS VAGINALIS PCR TRICHOMONAS VAGINALIS PCR Reference Not Detected Not Detected ORDER COMMENTS: Methodology: real-time PCR A negative result does not completely rule out infection with T. vaginalis. Results should be interpreted in conjunction with other clinical data. This test has not been validated for use with self-collected vaginal swab specimens from patients. This test is intended for medical purposes only and is not intended for the evaluation of suspected sexual abuse or for other forensic purposes. Normal [facility] Comment on above: Performed By: #### L [id number], [id number] #### Solar System Installer: DAPHNEY ORELLANA ([id number]) [facility] ([facility]) [address] URINE CULTUREon 02-15-2024 Bacteria identified Cx Nom (U) URINE CULTURE Reference Normal urogenital kanwal present [ S = SUSCEPTIBLE R = RESISTANT I = INTERMEDIATE S-DD = Susceptible-dose dependent NS = Non-susceptible NO = No Interpretation ] Normal [facility] Comment on above: Performed By: #### L [id number] ####Solar System Installer: DAPHNEY ORELLANA ([id number])[facility] ([facility])[address] [place] [address] URINE OB DIP B/Oon 4 Glucose Ql (U) Negative Neg mg/dL [facility] Interpretation and review of laboratory results Normal [facility] Protein.monoclonal (U) [Mass/Vol] Negative Neg mg/dL [facility] Examination level ultrasound on 12-21-2023 Indication Detailed anatomic survey Advanced maternal age, Maternal obesity, BMI >30, Diabetes mellitus, Cervical cerclage PPROM 24 and 16 weeks Impression REMOTE READ The patient is referred for a detailed anatomic survey. - Single, live, intrauterine . - biometry is consistent with the established gestational age. - No malformations were visualized on a complete detailed anatomic survey. - The amniotic fluid volume is normal amount. - The placenta is anterior, fundal. - The Transabdominal cervical length measures 35.7 mm with no evidence of funneling or other dynamic changes. - Not all structural malformations can be detected by ultrasound examination. Recommendations Monthly growth ultrasound Maternal Assessment Height 173 cm Height (ft) 5 ft Height (in) 8 in Physical Exam Initial weight (lb) 224 lb Initial BMI 34.06 kg/m Maternal assessment other: 5 Para 3 Method Transabdominal ultrasound examination. View: Suboptimal view: limited by position Mandujano . Number of fetuses: 1 Dating GA by prior assessment 19 w + 6 d LEELA by prior assessment: 05/10/2024 Ultrasound examination on: 12/21/2023 GA by U/S based upon: AC, BPD, Femur, HC GA by U/S 20 w + 3 d LEELA by U/S: 05/06/2024 Assigned: based on stated LEELA, selected on 12/21/2023 Assigned GA 19 w + 6 d Assigned LEELA: 05/10/2024 General Evaluation Cardiac activity present. FHR 157 bpm. movements: present. Presentation: transverse head right Placenta: Placental site: anterior, fundal Umbilical cord: Cord vessels: 3 vessel cord Amniotic fluid: Amount of AF: normal amount. MVP 7.8 cm Growth Overview Exam date GA BPD (mm) HC (mm) AC (mm) FL (mm) HL (mm) EFW (g) 11/27/2023 16w 3d 35.1 66% 132.1 53% 113.8 75% 23 76% 22.8 76% 175 74% 12/21/2023 19w 6d 45.7 48% 172.6 48% 158.6 80% 33.4 82% 32.3 86% 363 83% Biometry Standard BPD 45.7 mm 19w 6d 48% Hadlock OFD 61.6 mm 19w 6d 73% Nicolaides HC 172.6 mm 19w 6d 48% Ebony Cerebellum tr 20.7 mm 19w 5d 69% Hill Nuchal fold 5.0 mm AC 158.6 mm 21w 0d 80% Hadlock Femur 33.4 mm 20w 5d 82% Ebony Humerus 32.3 mm 20w 6d 86% Ebony EFW 363 g 20w 3d 83% Hadlock EFW (lb) 0 lb EFW (oz) 13 oz EFW by: Hadlock (HC-AC-FL) Extended [employer] Salesperson 6.5 mm CM 5.0 mm 50% Nicolaides Extremities / Bony Struc FL / HC 0.19 68% Hadlock Other Structures FHR 157 bpm Anatomy Cranium: normal Lateral ventricles: normal Choroid plexus: normal Midline falx: normal Cavum septi pellucidi: normal Cerebellum: normal Cisterna magna: normal Head / Neck Vermis: normal Neck: normal Nuchal fold: normal Lips: normal Profile: normal Nose: normal Face Maxilla: normal Mandible: normal Orbits: normal Lens: normal 4-chamber view: normal RVOT view: normal LVOT view: normal 3-vessel view: normal 6-kzegwy-dhjzgtr view: normal Heart / Thorax Situs: situs solitus (normal) Aortic arch view: normal SVC: normal IVC: normal Cardiac axis: normal Rt lung: normal Lt lung: normal Diaphragm: normal Cord insertion: normal Stomach: normal Kidneys: normal Bladder: normal Genitals: normal Abdomen Abdom. wall: normal Cervical spine: normal Thoracic spine: normal Lumbar spine: normal Sacral spine: normal Arms: normal Legs: normal Rt upper arm: normal Rt forearm: normal Rt hand: normal Rt fingers: normal Lt upper arm: normal Lt forearm: normal Lt hand: normal Lt fingers: normal Rt upper leg: normal Rt lower leg: normal Rt foot: normal Lt upper leg: normal Lt lower leg: normal Lt foot: normal sex: male Wants to know sex: yes Maternal Structures Uterus / Cervix Uterus: Visualized Cervix: Visualized Approach: Transabdominal Cervical length 35.7 mm Ovaries / Tubes / Adnexa Rt ovary: Not visualized Lt ovary: Not visualized Performed By: Humera Velasquez RDMS, RVT Read By: Kimberly Gibbons M.D. MATERNAL MEDICINE [facility] Radiology Study observation (narrative) [facility] UA DIP, URINE (POC)on 2023 BILIRUBIN UA (POCT) Negative Negative [facility] CLARITY UA (POCT) Clear [facility] COLOR UA (POCT) Yellow [facility] GLUCOSE UA (POCT) 500 mg/dL Abnormal Negative [facility] Hemoglobin Ql (U) Trace-intact Abnormal Negative [facility] Interpretation and review of laboratory results Abnormal [facility] KETONE UA (POCT) Trace Negative mg/dL [facility] LEUKOCYTES UA (POCT) Small Abnormal Negative [facility] NITRITE UA (POCT) Negative Negative [facility] PH UA (POCT) 6.0 4.5 - 8.0 [facility] Protein Ql (U) Trace Abnormal Negative mg/dL [facility] SPECIFIC GRAVITY UA (POCT) >=1.030 1.005 - 1.030 [facility] UROBILINOGEN UA (POCT) 0.2 Normal E.U./d L [facility] Location:[facility], [address], [place], [address] [facility] POINT OF CARE [facility] UA DIP, URINE (POC)on 2023 BILIRUBIN UA (POCT) Negative Negative [facility] CLARITY UA (POCT) Clear [facility] COLOR UA (POCT) Yellow [facility] GLUCOSE UA (POCT) 100 mg/dL Abnormal Negative [facility] Hemoglobin Ql (U) Trace-intact Abnormal Negative [facility] Interpretation and review of laboratory results Abnormal [facility] KETONE UA (POCT) Trace Negative mg/dL [facility] LEUKOC[facility]TES UA (POCT) Small Abnormal Negative [facility] NITRITE UA (POCT) Negative Negative [facility] PH UA (POCT) 6.0 4.5 - 8.0 [facility] Protein Ql (U) Negative Negative mg/dL [facility] SPECIFIC GRAVITY UA (POCT) >=1.030 1.005 - 1.030 [facility] UROBILINOGEN UA (POCT) 0.2 Normal E.U./d L [facility] Location:[facility], [address], [place], [place], [id number] [place] [address] POINT OF CARE [facility] ANES POSTPROC EVALon 024 ANES POSTPROC EVAL HNO ID: [id number] Author: JEN DIXON APRN.CRNA Service: Nursing Author Type: Nurse Breeding Manager Type: Anesthesia Postprocedure Evaluation Filed: 10/30/2023 13:15 Note Text: POST ANESTHESIA EVALUATION NOTE : 1990 Procedure Summary Date: 10/30/23 Room / Location: [facility] OR OB Anesthesia Start: 1209 Anesthesia Stop: 1309 Procedure: CERCLAGE CERVIX DURING VAGINAL (Pelvis) Diagnosis: History of prior with short cervix, currently History of delivery, currently (History of prior with short cervix, currently [O09.299]) (History of delivery, currently [O09.899]) Surgeons: Maged Batista DO Responsible Provider: Jen Dixon APRN.CRNA Anesthesia Type: spinal ASA Status: 3 Anesthesia Type: spinal Last Vitals Vitals Value Taken Time BP 133/81 10/30/23 1309 Temp 36.2 ?C (97.2 ?F) 10/30/23 1309 Pulse 78 10/30/23 1309 Resp 14 10/30/23 1309 SpO2 98 % 10/30/23 1309 Post Anesthesia Patient Status Patient Evaluation: bedside. Anticipated Disposition: phase 2 then home. Neurological Status: aware and responsive. Pulmonary Status: breathing comfortably on room air Airway Control: returned to baseline unsupported. Cardiovascular Status: stable. Pain Management: clinically adequate Postoperative Hydration: acceptable. Intraoperative Events: no significant anesthesia events Post Operative Nausea/Vomiting Status: no significant post operative nausea or vomiting Recommendation: continue current plan of care. 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 Tracheostomy tube not present Mallampati: III. TM distance: >3 FB. Neck ROM: full ROM without neurological symptoms. Mouth opening: adequate. Short neck: no. Thick neck: no Lip Bite Test: II DENTAL Dental findings: teeth intact. Additional exam findings: no II - ANESTHESIA PLAN ASA Score: 3 Anesthetic Plan: spinal The patient is a current smoker. NPO Status: adequate Beta Brad Monitoring Plan Monitoring plan: standard ASA. Post Procedure Analgesic Plan Postoperative analgesic plan: multimodal analgesia (Spinal block). Informed Consent Anesthetic risks, benefits, alternatives, personnel and consent discussed: yes. Patient / Responsible Libertarian agrees to proceed: yes Patient / Surrogate agrees to blood products: Yes Significant changes in the patient condition since the History and Physical, not otherwise documented in primary service progress note: no. Potential Anesthesia issues that may suggest increased risk of complications or contraindication to planned procedure: potential difficult intubation and potential difficult IV access. Discussed the possibility of lip / dental damage: yes [facility] CHART REVIEW: ACTIVE PROBLEM LIST History of Abdominal Hernia History of Atrial Fibrillation Anxiety and Depression [place] (Advanced Maternal Age) Multigravida 35+, Second Trimester History of Labor, Current , First Trimester Obesity Affecting in First Trimester History of Trichomoniasis Pcos (Polycystic Ovarian Syndrome) Cervical Cancer Screening History of Premature Rupture of Membranes Premature Rupture of Membranes (Pprom) With Unknown Onset of Labor Hx of Delivery, Currently , Second Trimester Supervision of High Risk in First Trimester Pre-Existing Type 2 Diabetes Mellitus During in First Trimester History of Delivery of Macrosomal Infant Asthma During Tobacco Use Disorder Complicating , Childbirth, Or Puerperium, Antepartum, Unspecified Trimester Constipation During in First Trimester Bacterial Vaginitis PAST MEDICAL HISTORY Diagnosis Date Anxiety state Atrial fibrillation (HCC) Cardiac arrest (HCC) With subsequent A. fib after initiation of anesthesia June 2016 with tubal, converted with diltiazem after 11 hours, she follows with cardiology Diabetes type 2, controlled ([facility]) 2015 GERD (gastroesophageal reflux disease) History of depression Mixed hyperlipidemia Morbid obesity ([facility]) Tobacco dependence PAST SURGICAL HISTORY Procedure Laterality Date CHOLECYSTECTOMY DANDC, DIAG AND/OR THERAPEUTIC 04/16/2023 retained placenta after 16 week demise/PPROM delivery DILATION AND CURETTAGE DXAND/THER NONOBSTETRIC 2016 multiple procedures TONSILLECTOMY AND ADENOIDECTOMY FAMILY HISTORY Problem Relation Age of Onset Hypertension Mother No Known Problems Father No Known Problems Sister No Known Problems Brother Cancer Maternal Grandmother Sinus Diabetes Paternal Grandmother Heart Failure Paternal Grandmother Heart Failure Paternal Grandfather Social History Tobacco Use Smoking status: Every Day Packs/day: 0.50 Years: 20.00 Additional pack years: 0.00 Total pack years: 10.00 Types: Cigarettes Smokeless tobacco: Never Vaping Use Vaping Use: Never used Substance Use Topics Alcohol use: Not Currently Drug use: Never insulin lispro (HUMALOG KWIKPEN) 100 unit/mL, 5 units prior to each meal + scale, Disp: 5 Each, Rfl: 11 insulin NPH (HUMULIN N NPH INSULIN KWIKPEN) 100 unit/mL (3 mL) injection pen, 20 units at bedtime, Disp: 5 Each, Rfl: 11 lidocaine (LIDODERM) 5 %, APPLY 1 PATCH DIRECTED EVERY 24 HOURS. REMOVE OLD PATCH PRIOR TO PLACING NEW PATCH. LOCATION: LOW BACK, Disp: 30 Patch, Rfl: 2 DEXCOM G7 SENSOR stephanie, INSERT 1 SENSOR ON THE BACK OF ARM. REPLACE EVERY 10 DAYS DIRECTED., Disp: 3 Each, Rfl: 2 sertraline (ZOLOFT) 100 mg tablet, take 1 tablet by mouth once daily., Disp: 90 tablet, Rfl: 2 Insulin [place], Disp (more content not included)... Normal [facility] CBC W Auto Differential pane l (Bld)on 10-30-2023 Basophils (Bld) [#/Vol] 0.09 10*3/uL Normal <0.11 [facility] Comment on above: Order Comment: Speci men Type: BLOOD SPECIMEN Ordering Facility: [facility] Address: [address] [place] [address] Performed By: #### T SPN #### [facility] CLIA [id number] [address] [place] [address] [place] Basophils/100 WBC (Bld) 0.7 % Normal A [facility] Comment on above: Order Comment: Speci men Type: BLOOD SPECIMEN Ordering Facility: [facility] Address: [address] [place] [address] Performed By: #### T SPN #### [facility] CLIA [id number] [address] [place] [address] [place] Differential cell count method Nom (Bld) Auto Normal [facility] Comment on above: Order Comment: Speci men Type: BLOOD SPECIMEN Ordering Facility: [facility] Address: [address] [place] [address] Performed By: #### T SPN #### [facility] CLIA [id number] [address] [place] [address] [place] Eosinophils (Bld) [#/Vol] 0.15 10*3/uL Normal <0.46 [facility] Comment on above: Order Comment: Speci men Type: BLOOD SPECIMEN Ordering Facility: [facility] Address: [address] [place] [address] Performed By: #### T SPN #### [facility] CLIA [id number] [address] [place] Eosinophils/100 WBC (Bld) 1.1 % Normal [facility] Comment on above: Order Comment: Speci men Type: BLOOD SPECIMEN Ordering Facility: [facility] Address: [address] [place] [address] Performed By: #### T SPN #### [facility] CLIA [id number] [address] [place] Erythrocyte distribution width (RBC) [Ratio] 15.4 % High 11.5-15.0 [facility] Comment on above: Order Comment: Speci men Type: BLOOD SPECIMEN Ordering Facility: [facility] Address: [address] [place] [address] Performed By: #### T SPN #### [facility] CLIA [id number] [address] [place] Hematocrit (Bld) [Volume fraction] 41.0 % Normal 36.0-46.0 [facility] Comment on above: Order Comment: Speci men Type: BLOOD SPECIMEN Ordering Facility: [facility] Address: [address] [place] [address] Performed By: #### T SPN #### [facility] CLIA [id number] [address] [place] Hemoglobin (Bld) [Mass/Vol] 14.5 g/dL Normal 11.5-15.5 [facility] Comment on above: Order Comment: Speci men Type: BLOOD SPECIMEN Ordering Facility: [facility] Address: [address] [place] [address] Performed By: #### T SPN #### [facility] CLIA [id number] [address] [place] Immature granulocytes (Bld) [#/Vol] 0.24 10*3/uL High <0.10 [facility] Comment on above: Order Comment: Speci men Type: BLOOD SPECIMEN Ordering Facility: [facility] Address: [address] [place] [address] Performed By: #### T SPN #### [facility] CLIA [id number] [address] Immature granulocytes/100 WBC (Bld) 1.8 % Normal [facility] Comment on above: Order Comment: Speci men Type: BLOOD SPECIMEN Ordering Facility: [facility] Address: [address] [place] [address] Performed By: #### T SPN #### [facility] CLIA [id number] [address] OF [facility] Lymphocytes (Bld) [#/Vol] 2.12 10*3/uL Normal 1.00-4.00 [facility] Comment on above: Order Comment: Speci men Type: BLOOD SPECIMEN Ordering Facility: [facility] Address: [address] [place] [address] Performed By: #### T SPN #### [facility] CLIA [id number] [address] Lymphocytes/100 WBC (Bld) 15.9 % Normal [facility] Comment on above: Order Comment: Speci men Type: BLOOD SPECIMEN Ordering Facility: [facility] Address: [address] [place] [address] Performed By: #### T SPN #### [facility] CLIA [id number] [address] [place] MCH (RBC) [Entitic mass] 28.7 pg Normal 26.0-34.0 [facility] Comment on above: Order Comment: Speci men Type: BLOOD SPECIMEN Ordering Facility: [facility] Address: [address] [place] [address] Performed By: #### T SPN #### [facility] CLIA [id number] [address] MCHC (RBC) [Mass/Vol] 35.4 g/dL Normal 30.5-36.0 [facility] Comment on above: Order Comment: Speci men Type: BLOOD SPECIMEN Ordering Facility: [facility] Address: [address] [place] [address] Performed By: #### T SPN #### [facility] CLIA [id number] [address] [place] MCV (RBC) [Entitic vol] 81.2 fL Normal 80.0-100.[address] [facility] Comment on above: Order Comment: Speci men Type: BLOOD SPECIMEN Ordering Facility: [facility] Address: [address] [place] [address] Performed By: #### T SPN #### [facility] CLIA [id number] [address] [place] Monocytes (Bld) [#/Vol] 0.57 10*3/uL Normal <0.87 [facility] Comment on above: Order Comment: Speci men Type: BLOOD SPECIMEN Ordering Facility: [facility] Address: [address] [place] [address] Performed By: #### T SPN #### [facility] CLIA [id number] [address] Monocytes/100 WBC (Bld) 4.3 % Normal A [facility] Comment on above: Order Comment: Speci men Type: BLOOD SPECIMEN Ordering Facility: [facility] Address: [address] [place] [address] Performed By: #### T SPN #### [facility] CLIA [id number] [address] [place] Neutrophils (Bld) [#/Vol] 10.17 10*3/uL High 1.45-7.50 [facility] Comment on above: Order Comment: Speci men Type: BLOOD SPECIMEN Ordering Facility: [facility] Address: [address] [place] [address] Performed By: #### T SPN #### [facility] CLIA [id number] [address] [place] Neutrophils/100 WBC (Bld) 76.2 % Normal [facility] Comment on above: Order Comment: Speci men Type: BLOOD SPECIMEN Ordering Facility: [facility] Address: [address] [place] [address] Performed By: #### T SPN #### [facility] CLIA [id number] [address] [place] Nucleated RBC (Bld) [#/Vol] 10*3/uL Normal <0.01 [facility] Comment on above: Order Comment: Speci men Type: BLOOD SPECIMEN Ordering Facility: [facility] Address: [address] [place] [address] Performed By: #### T SPN #### [facility] CLIA [id number] [address] [place] Nucleated RBC/100 WBC (Bld) [Ratio] 0.0 /100 WBC Normal [facility] Comment on above: Order Comment: Speci men Type: BLOOD SPECIMEN Ordering Facility: [facility] Address: [address] [place] [address] Performed By: #### T SPN #### [facility] CLIA [id number] [address] [place] Platelet mean volume (Bld) [Entitic vol] 9.6 fL Normal 9.0-12.7 [facility] Comment on above: Order Comment: Speci men Type: BLOOD SPECIMEN Ordering Facility: [facility] Address: [address] [place] [address] Performed By: #### T SPN #### [facility] CLIA [id number] [address] [place] [address] [place] Platelets (Bld) [#/Vol] 203 10*3/uL Normal 150-400 [facility] Comment on above: Order Comment: Speci men Type: BLOOD SPECIMEN Ordering Facility: [facility] Address: [address] [place] [address] Performed By: #### T SPN #### [facility] CLIA [id number] [address] [place] [address] [place] RBC (Bld) [#/Vol] 5.05 10*6/uL Normal 3.90-5.20 [facility] Comment on above: Order Comment: Jerrell dalia Type: BLOOD SPECIMEN Ordering Facility: [facility] Address: [place] [address] Performed By: #### T SPN #### [facility] CLIA [id number] [address] WBC (Bld) [#/Vol] 13.34 10*3/uL High 3.70-11.00 [facility] Comment on above: Order Comment: Speci men Type: BLOOD SPECIMEN Ordering Facility: [facility] Address: [place] [address] Performed By: #### T SPN #### [facility] CLIA [id number] [address] HISTORY PHYSICALon HISTORY PHYSICAL HNO ID: [id number] Author: MAGED BATISTA DO Service: Maternal Medicine Author Type: Nurse Practitioner Type: H&P Filed: 10/30/2023 15:43 Note Text: ---- Attestation signed by Maged Batista DO at 10/30/2023 3:43 PM MFM Attending Note I saw and evaluated the patient. I agree with the TIE UP WORKER's findings and plan of care as documented below. Maged Batista DO, MPH 10/30/2023 3:43 PM ---- OBSTETRICS HISTORY AND PHYSICAL SERVICE DATE: October 30, 2023 SERVICE TIME: 1050 Subjective Patient's stated reason for arrival: stitch my cervix CHIEF COMPLAINT: Cerclage HISTORY OF THE PRESENT ILLNESS: The patient is a 33 year old female, , who is at 12w3d with an LEELA of 05/10/2024, by Ultrasound dating method. Patient is here for her cerclage. Denies vaginal bleeding., denies cramping. HISTORY REVIEW PAST MEDICAL HISTORY Diagnosis Date Anxiety state Atrial fibrillation (HCC) Cardiac arrest (HCC) With subsequent A. fib after initiation of anesthesia June 2016 with tubal, converted with diltiazem after 11 hours, she follows with cardiology Constipation during in first trimester 09/16/2023 Reviewed Colace and increased hydration. Diabetes type 2, controlled ([facility]) 2015 GERD (gastroesophageal reflux disease) History of depression Mixed hyperlipidemia Morbid obesity ([facility]) Tobacco dependence PAST SURGICAL HISTORY Procedure Laterality Date CHOLECYSTECTOMY DANDC, DIAG AND/OR THERAPEUTIC 04/16/2023 retained placenta after 16 week demise/PPROM delivery DILATION AND CURETTAGE DXAND/THER NONOBSTETRIC 2016 multiple procedures TONSILLECTOMY AND ADENOIDECTOMY FAMILY HISTORY Problem Relation Age of Onset Hypertension Mother No Known Problems Father No Known Problems Sister No Known Problems Brother Cancer Maternal Grandmother Sinus Diabetes Paternal Grandmother Heart Failure Paternal Grandmother Heart Failure Paternal Grandfather Social History Tobacco Use Smoking status: Every Day Packs/day: 0.50 Years: 20.00 Additional pack years: 0.00 Total pack years: 10.00 Types: Cigarettes Smokeless tobacco: Never Vaping Use Vaping Use: Never used Substance Use Topics Alcohol use: Not Currently Drug use: Never Obstetric History T2 L3 SAB1 IAB0 Ectopic0 Multiple0 Live Births3 Comment: RICHI after 04/16 delivery-Retained placenta Name of Baby 1: Marvin Date: 02/23/08 GA: 39w0d Delivery: Vaginal, Spontaneous Apgar1: Not recorded Apgar5: Not recorded Living: Living Name of Baby 2: Stephen Date: 02/04/10 GA: 37w1d Delivery: Vaginal, Spontaneous Apgar1: Not recorded Apgar5: Not recorded Living: Living Name of Baby 3: Rodney Date: 09/08/15 GA: 24w0d Delivery: Vaginal, Spontaneous Apgar1: Not recorded Apgar5: Not recorded Living: Living Name of Baby 4: Not recorded Date: 04/16/23 GA: 16w4d Delivery: Not recorded Apgar1: Not recorded Apgar5: Not recorded Living: [facility]ise Name of Baby 5: Not recorded Date: Not recorded GA: Not recorded Delivery: Not recorded Apgar1: Not recorded Apgar5: Not recorded Living: Not recorded ALLERGIES Allergen Reactions Codeine Other: See Comments Jardiance [Empaglif* Intolerance Body aches, headaches earache Nalbuphine Vomiting Oxycodone Vomiting Percocet [Oxycodone* Vomiting Metformin Diarrhea, GI Upset Rapid release only-pt states OK to take ER Prior to Admission Medications Prescriptions Last Dose Informant Patient Reported? Taking? Blood-Glucose Meter (BLOOD GLUCOSE MONITORING) monitoring kit No No Sig: One touch. Use as instructed. Please use voucher Bin [id number]; PCN [facility]; Group [id number]; ID [id number] Patient taking differently: One touch. Use as instructed. Please use voucher Bin [id number]; PCN [facility]; Group [id number]; ID [id number] For back up use only due to use of Dexcom Blood-Glucose Meter,Continuous (DEXCOM G7 HOME THEATRE TECHNICIAN) [facility] No No Sig: Use to test blood sugar as directed. DEXCOM G7 SENSOR stephanie No No Sig: INSERT 1 SENSOR ON THE BACK OF ARM. REPLACE EVERY 10 DAYS DIRECTED. Insulin [place], Disposable, (PEN NEEDLE) 32 gauge x 5/32" No No Sig: Use to inject insulin up to 4 times per day. Patient taking differently: Use to inject insulin up to 4 times per day. For back up use only due to use of Dexcom Insulin [place], Disposable, (PEN NEEDLE) 32 gauge x 5/32" No No Sig: Use to inject insulin up to 4 times per day. Eoraelss-Ka-Jvz-Fe- FA tab 10/30/2023 No Yes Sig: Take 1 tablet by mouth once daily. albuterol HFA (PROVENTIL HFA, VENTOLIN HFA) 90 mcg/actuation inhaler No No Sig: Inhale 2 Puffs as instructed every 4 hours as needed for wheezing/shortness of breath. alcohol swabs (ALCOHOL PADS) No No Sig: Apply 1 application to affected area once daily. aspirin, enteric coated (A (more content not included)... Normal [facility] OPERATIVE NOon 10-30-2023 OPERATIVE NO HNO ID: [id number] Author: MAGED BATISTA DO Service: Obstetrics Author Type: Physician Type: Operative Report Filed: 10/30/2023 15:52 Note Text: OB OPERATIVE/PROCEDURE REPORT LOG ID: [id number] Surgery/Procedure Date: 10/30/2023 Incision/Procedure Start Time: 12:33 PM Incision Close/Procedure End Time: 12:50 PM Surgeon(s)/Procedur alist(s) and Political Geographer(s): Surgeon(s) and Role: * Maged Batista DO - Primary * Padmini Sharif MD - Resident - Assisting * Antonia Putnam MD - Resident - Assisting No Additional Staff Informed Consent: Informed Consent obtained and on the chart Procedure: Cervical Cerclage Pre-Op/Pre-Procedur e Diagnosis: Cervical insufficiency GA: 12w3d AMA Obesity in Post-Op/Post-Proced ure Diagnosis: Same as pre-op diagnosis Antibiotic: None Procedure Details: Patient was taken to the operating room where the sign-in and time out were completed. Spinal anesthesia was induced and found to be adequate. heart rate had been confirmed prior to going to OR. She was placed in a lithotomy position with [place] stirrups with careful attention not to hyperflex or hyperextend the knees or hips. Patient was prepped and draped in the normal sterile manner. The bladder was catheterized and drained. A weighted speculum and retractor were placed in the vagina for clear visualization of the cerfvix. The anterior and posterior lips of the cervix were grasped with Ring forceps. Retractors were used to visualize the cervix and distal vagina. The vaginal portion of the cervical length was approximately 4 cm. membranes were not visualized. The junction of the rugated vaginal epithelium and the smooth cervix just distal to the vesicocervical reflection was identified. The cervix was sutured using a number 5 Ethibond suture pursestring stitch placed circumferentially in a counter clockwise just distal of the reflection. Cerclage was completed with 5 bites with caution posteriorly as the rectum appeared scarred to the cervix. The knot was tied securely at 12 o'clock. The loose ends of the suture were cut. Ring forceps were removed. The cervix was re-examined and was noted to be closed. Hemostasis was secured. All instruments were removed. Sign-out was completed. IV Fluids: 1200 mL Urine Output: 300 mL Estimated Blood Loss: < 10 mL Specimens: None Implantable Devices: None Drains: None Complications: None A digital "sweep" of the vaginal canal was performed by the Resident and it was ascertained that no instruments or other foreign bodies are retained within the cavity. Sponge, lap, and needle counts were correct times two and the patient was taken to the recovery room with stable vital signs after tolerating the procedure well. Plan of care discussed with: Provider, RN, Patient. The attending was present for critical and wheeler portions of the procedure or immediately available to provide assistance. SIGNATURE: Antonia Putnam MD PATIENT NAME: Charmaine Avila DATE: October 30, 2023 TIME: 1:02 PM MFM Attending I was present and participated in the wheeler and critical portions of the procedure. I was immediately available to provide services throughout the entire procedure. Maged Batista DO, MPH 10/30/2023 3:52 PM Normal [facility] TYPE + SCREEN PRENATALon ABO O Normal [facility] Comment on above: Order Comment: Speci men Type: BLOOD SPECIMEN Ordering Facility: [facility] Address: [address] [place] [address] Performed By: #### T SPN #### [facility] CLIA [id number] [address] [place] [address] HISTORICAL AB SCR STATUS Negative Normal [facility] Comment on above: Order Comment: Speci men Type: BLOOD SPECIMEN Ordering Facility: [facility] Address: [address] [place] [address] Performed By: #### T SPN #### [facility] CLIA [id number] [address] [place] [address] Rh Nom (Bld) Positive Normal [facility] Comment on above: Order Comment: Speci men Type: BLOOD SPECIMEN Ordering Facility: [facility] Address: [address] [place] [address] Performed By: #### T SPN #### [facility] CLIA [id number] [address] [place] [address] TYPE AND SCREEN EXPIRATION 11/02/2023 23:59 Normal [facility] Comment on above: Order Comment: Speci men Type: BLOOD SPECIMEN Ordering Facility: [facility] Address: [address] [place] [address] Performed By: #### T SPN #### [facility] CLIA [id number] [address] [place] [id number] [facility] ---- CHARMAINE AVILA ([id number]) 1990 F Date Time Provider Department 10/27/23 FLORENCE MITCHELL [facility] During your visit today, we recorded the following information about you: Florence Mitchell RN 10/27/2023 1:11 PM Signed Vm left for Charmaine to arrive at 10/29/23 @ 0600 for her cerclage. Florence Mitchell RN 10/27/2023 1:37 PM Signed Charmaine called and she is unable to make the appt on . She was rescheduled for Thursday10/30/23 @ 1200. Updated that she needs to be here at 1000 Allergies As of Date: 10/27/2023 Noted Allergy Reaction CODEINE 10/02/2020 14 - Other: See Comments JARDIANCE (EMPAGLIFLOZIN) 08/26/2021 5 - Intolerance Comments: Body aches, headaches earache NALBUPHINE 10/02/2020 11 - Vomiting OXYCODONE 03/22/2019 11 - Vomiting PERCOCET (OXYCODONE-ACETAMIN OPHEN)10/02/2020 11 - Vomiting METFORMIN 03/11/2023 6 - Diarrhea 8 - GI Upset Comments: Rapid release only-pt states OK to take ER Date Reviewed: 10/27/2023 Reviewed by: Jocelyne Chavez, ОЛЕГ - Fully Assessed Reason for Visit: Appointment [[id number]] Prescriptions as of 10/27/2023 - insulin lispro (HUMALOG KWIKPEN) 100 unit/mL 5 units prior to each meal + scale - insulin NPH (HUMULIN N NPH INSULIN KWIKPEN) 100 unit/mL (3 mL) injection pen 20 units at bedtime - lidocaine (LIDODERM) 5 % APPLY 1 PATCH DIRECTED EVERY 24 HOURS. REMOVE OLD PATCH PRIOR TO PLACING NEW PATCH. LOCATION: LOW BACK - DEXCOM G7 SENSOR stephanie INSERT 1 SENSOR ON THE BACK OF ARM. REPLACE EVERY 10 DAYS DIRECTED. - sertraline (ZOLOFT) 100 mg tablet take 1 tablet by mouth once daily. - Insulin [place], Disposable, (PEN NEEDLE) 32 gauge x 5/32" Use to inject insulin up to 4 times per day. - metFORMIN ER (GLUCOPHAGE XR) 500 mg 24 hr tablet Take 2 tablets by mouth two times a day with meals. - aspirin, enteric coated (ASPIRIN, ENTERIC COATED) 81 mg EC tablet Take 1 tablet by mouth once daily. - ketotifen fumarate (ZADITOR) 0.025 % (0.035 %) ophthalmic solution Use 1 Drop in both eyes two times a day. As needed - loratadine (CLARITIN) 10 mg tablet Take 1 tablet by mouth once daily as needed. - albuterol HFA (PROVENTIL HFA, VENTOLIN HFA) 90 mcg/actuation inhaler Inhale 2 Puffs as instructed every 4 hours as needed for wheezing/shortness of breath. - Mwgzcwwu-Ek-Nuu-Fe- FA tab Take 1 tablet by mouth once daily. - blood sugar diagnostic (ONETOUCH VERIO TEST STRIPS) test strip Use as instructed 4 times daily - lancets (ONETOUCH DELICA LANCETS) 30 gauge Use as instructed 4 times daily - Blood-Glucose Meter (BLOOD GLUCOSE MONITORING) monitoring kit One touch. Use as instructed. Please use voucher Bin [id number]; N [facility]; Group [id number]; ID NOCHARGEMETR - Insulin [place], Disposable, (PEN NEEDLE) 32 gauge x 5/32" Use to inject insulin up to 4 times per day. - ondansetron orally disintegrating (ZOFRAN ODT) 4 mg disintegrating tablet Take 1 tablet by mouth every 6 hours as needed for nausea/vomiting. - Blood-Glucose Meter,Continuous (DEXCOM G7 HOME THEATRE TECHNICIAN) [facility] Use to test blood sugar as directed. - alcohol swabs (ALCOHOL PADS) Apply 1 application to affected area once daily. - blood sugar diagnostic (BLOOD GLUCOSE TEST) test strip Test blood sugar(s) 3 times daily. Dx: Type 2 DM - Controlled E11.9 Insulin: Yes - fluticasone (FLONASE) 50 mcg/actuation nasal spray Use 1 [place] in each nostril once daily. As needed Problem List As Of Date 10/27/2023 Noted Resolved Anxiety state [F41.1] 04/12/2023 Mixed hyperlipidemia [E78.2] 03/11/2023 History of abdominal hernia [Z87.19] 10/02/2020 History of atrial fibrillation [Z86.79] 10/02/2020 History of asthma [Z87.09] 10/02/2020 10/14/2023 Anxiety and depression [F41.9, F32.A] 07/01/2022 AMA (advanced maternal age) multigravida 35+, s*03/11/2023 History of labor, current , fi*03/11/2023 Obesity affecting in first trimester *03/11/2023 History of gestational diabetes in prior pregna*03/11/2023 10/14/2023 History of trichomoniasis [Z86.19] 03/11/2023 PCOS (polycystic ovarian syndrome) [E28.2] 03/11/2023 11 weeks gestation of [Z3A.11] 03/11/2023 04/12/2023 Cervical cancer screening [Z12.4] 03/11/2023 History of premature rupture of membran*04/12/2023 premature rupture of membranes (PPROM) *04/12/2023 Hx of delivery, currently , sec*04/12/2023 Abnormal AFP3 test [R77.2] 04/15/2023 10/14/2023 Supervision of high risk in first tri*09/16/2023 Pre-existing type 2 diabetes mellitus during pr*09/16/2023 History of delivery of macrosomal [Z87.5*09/16/2023 Asthma during [O99.519, J45.909] 09/16/2023 Tobacco use disorder complicating , ch*09/16/2023 Constipation during in first trimeste*09/16/2023 with uncertain dates in first trimest*09/16/2023 10/14/2023 Bacterial vaginiti (more content not included)... Normal [facility] nuchal translucency me asured by Zina 10-27-2023 Indication First trimester screening Advanced maternal age, Obesity, BMI >30, type 2 diabetes Impression 1. Single, live, intrauterine . 2. [place] rump length measurement is consistent with the established gestational age. 3. No gross abnormalities are noted. 4. The nuchal translucency measurement appears within normal limits at 1.3 mm. Maternal Structures: Right Ovary: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 OB/Gynecology Comment on above: 22 weeks gestation o f (Primary Dx); Multigravida of advanced maternal age in second trimester; Obesity affecting in second trimester, unspecified obesity type; Pre-existing type 2 diabetes mellitus during in first trimester; Vaginal discharge Start: 01-04-2024 End: 01-04-2024 Patient encounter procedure Adeel Ramirez DO Work Phone: Endocrinology Comment on above: Pre-existing type 2 diabetes mellitus in in second trimester (Primary Dx) Start: 01-04-2024 End: 01-04-2024 Telemedicine consultation with patient Adeel Ramirez DO Work Phone: Endocrinology Start: 01-03-2024 ambulatory [facility] Start: 12-29-2023 Telephone encounter Adeel rapp DO Work Phone: Endocrinology Comment on above: Blood Sugar Reading Start: 12-22-2023 Telephone encounter Vocational Technical Education Teacher RN Obstetrics/Gynecology Comment on above: PRAF Start: 12-21-2023 End: 12-21-2023 Office outpatient visit 15 minutes Rosaline Sanon MD Work Phone: OB/Gynecology Comment on above: 19 weeks gestation o f (Primary Dx); Multigravida of advanced maternal age in second trimester; Obesity affecting in second trimester, unspecified obesity type; Pre-existing type 2 diabetes mellitus during in first trimester; Cervical cerclage suture present in first trimester Start: 12-21-2023 End: 12-21-2023 Patient encounter procedure Route Driver [facility] Work Phone: OB/Gynecology Comment on above: Encounter for anatomic survey (Primary Dx); Multigravida of advanced maternal age in second trimester; Cervical cerclage suture present in first trimester; 19 weeks gestation of ; Obesity affecting in second trimester, unspecified obesity type Start: 12-20-2023 Telephone encounter Adeel Meier rst DO Work Phone: Endocrinology Comment on above: Blood Sugar Reading Start: 12-07-2023 Telephone encounter Adeel Meier rst DO Work Phone: Endocrinology Comment on above: Blood Sugar Reading Start: 11-30-2023 ambulatory Rosaline celestin MD Work Phone: OB/Gynecology Comment on above: Excuse Start: 11-29-2023 Telephone encounter Adeel Crawford Hardeep rst DO Work Phone: Endocrinology Comment on above: Blood Sugar Reading Start: 11-27-2023 Telephone encounter Rosaline andrade MD Work Phone: OB/Gynecology Comment on above: Orders Start: 11-27-2023 End: 11-27-2023 Office outpatient visit 15 minutes Rosaline Sanon MD Work Phone: OB/Gynecology Comment on above: 16 weeks gestation o f (Primary Dx); Multigravida of advanced maternal age in second trimester; Pre-existing type 2 diabetes mellitus during in first trimester; Obesity affecting in second trimester, unspecified obesity type; Cervical cerclage suture present in first trimester Start: 11-27-2023 End: 11-27-2023 Patient encounter procedure Route [facility] Work Phone: OB/Gynecology Comment on above: Encounter for anatomic survey (Primary Dx); Encounter for screening for malformation using ultrasound; 16 weeks gestation of ; Obesity affecting in second trimester, unspecified obesity type; Multigravida of advanced maternal age in second trimester; Pre-existing type 2 diabetes mellitus during in first trimester Start: 11-22-2023 Telephone encounter Adeel Crawford Hardeep rst DO Work Phone: Endocrinology Comment on above: Blood Sugar Reading Start: 11-19-2023 Refill Rossy Jain MD Work Phone: OB/Gynecology Comment on above: Refill Request Start: 11-19-2023 Telephone encounter Adeel rapp DO Work Phone: Endocrinology Comment on above: Blood Sugar Reading Start: 11-17-2023 ambulatory Mimi meza MD Work Phone: OB/Gynecology Comment on above: Off work Start: 11-13-2023 ambulatory Adeel Ramirez DO Work Phone: Endocrinology Comment on above: Dexcom reminder Start: 11-13-2023 E-mail encounter ramo m caregiver Adeel Ramirez DO Work Phone: Endocrinology Start: 11-09-2023 End: 11-09-2023 Patient encounter procedure Mimi Harden MD Work Phone: OB/Gynecology Comment on above: Supervision of other high risk pregnancies, first trimester (Primary Dx); Pre-existing type 2 diabetes mellitus during in first trimester; Multigravida of advanced maternal age in first trimester; Cervical cerclage suture present in first trimester; 13 weeks gestation of ; Encounter for other general counseling or advice on contraception Start: 11-09-2023 ambulatory Mimi meza MD Work Phone: OB/Gynecology Comment on above: Question Start: 11-05-2023 End: 11-05-2023 ambulatory Adeel Ramirez DO Work Phone: Endocrinology Comment on above: Pre-existing type 2 diabetes mellitus in in first trimester (Primary Dx) Start: 11-05-2023 End: 11-05-2023 Telemedicine consultation with patient Adeel Ramirez DO Work Phone: Endocrinology Start: 10-30-2023 End: 10-30-2023 ambulatory MAGED BATISTA [facility] Start: 10-27-2023 Telephone encounter Florence Mitchell RN [facility] Maternal Medicine Comment on above: Appointment Start: 10-27-2023 End: 10-27-2023 Patient encounter procedure Kimberly Gibbons MD Work Phone: Maternal Medicine Comment on above: premature ru pture of membranes (PPROM) with unknown onset of labor (Primary Dx); Encounter for supervision of high risk in first trimester, antepartum; Pre-existing type 2 diabetes mellitus during in first trimester; Multigravida of advanced maternal age in first trimester; Supervision of other high risk pregnancies, first trimester; Obesity affecting in first trimester, unspecified obesity type; Hx of delivery, currently , second trimester; History of premature rupture of membranes; History of delivery of macrosomal ; History of labor, current , first trimester; Bacterial vaginitis; Asthma during ; AMA (advanced maternal age) multigravida 35+, second trimester; History of atrial fibrillation; Anxiety and depression; Tobacco use disorder complicating , childbirth, or puerperium, antepartum, unspecified trimester; Encounter for (NT) nuchal translucency scan; 12 weeks gestation of Start: 10-25-2023 Telephone encounter Adeel Yvette rapp DO Work Phone: Endocrinology Comment on above: Blood Sugar Reading Start: 10-23-2023 ambulatory Adeel Yvette Ramirez DO Work Phone: Endocrinology Comment on above: Upload Sensor Remind er Start: 10-23-2023 E-mail encounter ramo vital caregiver Adeel Yvette Trejost DO Work Phone: Endocrinology Start: 10-21-2023 Refill Leah TERRAZASTIE UP WORKER Work Phone: Internal Medicine [place] Comment on above: Refill Request Start: 10-16-2023 Telephone encounter Adeel Yvette Meier rswilliam DO Work Phone: Endocrinology Comment on above: BG Log Reminder Start: 10-15-2023 ambulatory Adeel Ramirez DO Work Phone: Endocrinology Comment on above: Sugar logs/A1C Resul t Start: 10-15-2023 Telephone encounter Rut carr APRN.TIE UP WORKER Work Phone: OB/Gynecology Comment on above: Results Start: 10-14-2023 ambulatory Mimi meza MD Work Phone: OB/Gynecology Start: 10-14-2023 End: 10-14-2023 Patient encounter procedure Mimi Harden MD Work Phone: OB/Gynecology Comment on above: Supervision of other high risk pregnancies, first trimester (Primary Dx); Pre-existing type 2 diabetes mellitus during in first trimester; Multigravida of advanced maternal age in first trimester; 10 weeks gestation of ; Obesity affecting in first trimester, unspecified obesity type Appointment for the 4th Start: 10-11-2023 Refill Leah TERRAZASTIE UP WORKER Work Phone: Internal Medicine [place] Comment on above: Refill Request Start: 10-02-2023 Telephone encounter Adeel Meier rswilliam DO Work Phone: Endocrinology Comment on above: Blood Sugar Reading Start: 09-26-2023 End: 09-26-2023 ambulatory Adeel Ramirez DO Work Phone: Endocrinology Comment on above: Diabetes mellitus ty pe 1, controlled, without complications (HCC) (Primary Dx); Pre-existing type 2 diabetes mellitus in in first trimester; High-risk , first trimester Start: 09-26-2023 End: 09-26-2023 Telemedicine consultation with patient Adeel Ramirez DO Work Phone: Endocrinology Start: 09-23-2023 Telephone encounter Adeel Meier rswilliam DO Work Phone: Endocrinology Comment on above: Patient Update Start: 09-21-2023 Telephone encounter Vasu huynh APRN.TIE UP WORKER Work Phone: OB/Gynecology Comment on above: Orders Start: 09-18-2023 Telephone encounter Jude marte Medicine [facility] Start: 09-17-2023 Telephone encounter Kirsten Gallagher RN Obstetrics/Gynecology Comment on above: PRAF (Initial PRAF) Start: 09-16-2023 End: 09-16-2023 Patient encounter procedure Vasu Gaxiola APRN.TIE UP WORKER Work Phone: OB/Gynecology Comment on above: Supervision of high risk in first trimester (Primary Dx); Less than 8 weeks gestation of ; with uncertain dates in first trimester; Pre-existing type 2 diabetes mellitus during in first trimester; Multigravida of advanced maternal age in first trimester; Obesity affecting in first trimester, unspecified obesity type; History of delivery of macrosomal infant; Asthma during ; History of atrial fibrillation; Tobacco smoking complicating in first trimester; Constipation during in first trimester; Gestational diabetes mellitus in , controlled by oral hypoglycemic drugs; Anxiety and depression; History of asthma; AMA (advanced maternal age) multigravida 35+, second trimester; History of trichomoniasis Start: 09-09-2023 End: 09-09-2023 ambulatory Adeel Ramirez DO Work Phone: Endocrinology Comment on above: Urgent Nausea vomiting and diarrhea (Primary Dx); 6 weeks gestation of Start: 09-09-2023 End: 09-09-2023 Telemedicine consultation with patient Irasema Georges APRNMALOU Work Phone: [facility] Start: 09-08-2023 ambulatory Junior cleary MD Work Phone: Internal Medicine [place] Comment on above: Doctor's Note Needed Start: 08-31-2023 ambulatory Junior cleary MD Work Phone: Internal Medicine [place] Comment on above: HCG?? Start: 08-05-2023 End: 08-05-2023 Office outpatient visit 10 minutes Junior Jeong MD Work Phone: Internal Medicine [place] Comment on above: LLQ pain (Primary Dx ); Irregular menses; Class 1 obesity due to excess calories with body mass index (BMI) of 34.0 to 34.9 in adult, unspecified whether serious comorbidity present Start: 07-24-2023 End: 07-24-2023 ambulatory Adeel Ramirez DO Work Phone: Endocrinology Comment on above: Controlled type 2 di abetes mellitus without complication, without long-term current use of insulin (HCC) (Primary Dx) Start: 07-24-2023 End: 07-24-2023 Telemedicine consultation with patient Adeel Ramirez DO Work Phone: [facility] Start: 07-23-2023 End: 07-23-2023 ambulatory Esther Payne MOVIE PROJECTIONIST.TIE UP WORKER, DNP Work Phone: Neurology Pain Comment on above: Chronic pain syndrom e (Primary Dx); Chronic low back pain with bilateral sciatica, unspecified back pain laterality Start: 07-23-2023 End: 07-23-2023 Telemedicine consultation with patient Esther Payne APRN.TIE UP WORKER, DNP Work Phone: [facility] Start: 06-30-2023 Refill Junior cleary MD Work Phone: Internal Medicine [place] Comment on above: Refill Request Start: 05-13-2023 ambulatory Junior cleary MD Work Phone: Internal Medicine [place] Comment on above: Eye drops Start: 04-30-2023 Telephone encounter Adeel Meier rst DO Work Phone: Endocrinology Comment on above: Patient Update Start: 04-28-2023 Refill Fercho GALEANA Work Phone: Internal Medicine [place] Comment on above: Refill Request Start: 04-23-2023 End: 04-23-2023 Patient encounter procedure Rossy Jain MD Work Phone: OB/Gynecology Comment on above: Prior with demise (Primary Dx); At risk for depressed mood during period Start: 04-20-2023 Telephone encounter Adeelangélica Meier rst DO Work Phone: Endocrinology Comment on above: Results Start: 04-17-2023 ambulatory Mimi meza MD Work Phone: OB/Gynecology Comment on above: Ob Delivery Note Start: 04-16-2023 ambulatory Junior cleary MD Work Phone: Internal Medicine [place] Comment on above: Medications Start: 04-16-2023 Patient encounter procedure Mimi Harden MD Work Phone: [facility] Start: 04-14-2023 End: 04-14-2023 Patient encounter procedure Heron Rodriguez MD Work Phone: Maternal Medicine Comment on above: Encounter for superv ision of high risk in first trimester, antepartum; Gestational diabetes mellitus in , controlled by oral hypoglycemic drugs; History of labor, current , first trimester; premature rupture of membranes (PPROM) with unknown onset of labor; Type 2 diabetes mellitus during , second trimester Start: 04-13-2023 End: 04-13-2023 ambulatory JUNIOR DAVIDKEVIN Facility:[facility] Start: 04-13-2023 End: 04-13-2023 Patient encounter procedure Us Rm1 Route Driver Ag Mfm Work Phone: [facility] Maternal Medicine Comment on above: AMA (advanced matern al age) multigravida 35+, third trimester [O09.523] (Primary Dx); Encounter for anatomic survey [Z36.89]; Other obesity due to excess calories affecting in second trimester [O99.212, E66.09] Start: 04-12-2023 Evaluation and management of inpatient CONI CORONADO Facility:[facility] Start: 04-10-2023 Telephone encounter Adeel rapp DO Work Phone: Endocrinology Comment on above: Blood Sugar Reading Start: 04-09-2023 End: 04-09-2023 Patient encounter procedure Richie Doll MD Work Phone: OB/Gynecology Comment on above: Multigravida of adva nced maternal age in second trimester (Primary Dx); 15 weeks gestation of Start: 04-06-2023 Refill Adeel Ramirez DO Work Phone: Endocrinology Comment on above: Refill Request Blood Sugar Reading Start: 03-20-2023 End: 03-20-2023 Patient encounter procedure Route Driver [place] [facility] Work Phone: OB/Gynecology Comment on above: Nuchal translucency of fetus on ultrasound (Primary Dx); Encounter for supervision of high risk in first trimester, antepartum; 12 weeks gestation of Start: 03-17-2023 Telephone encounter Daphney briggs APRN.CNP Work Phone: Obstetrics/Gynecology Comment on above: PRAF Start: 03-17-2023 End: 03-17-2023 ambulatory Adeel Ramirez DO Work Phone: Endocrinology Comment on above: Type 2 diabetes janel itus complicating , antepartum, first trimester (Primary Dx); High-risk , first trimester Start: 03-17-2023 End: 03-17-2023 Telemedicine consultation with patient Adeel Ramirez DO Work Phone: [facility] Start: 03-13-2023 Telephone encounter Adeel Meier rst DO Work Phone: Endocrinology Comment on above: Appointment Start: 03-12-2023 ambulatory Daphney FRAGA RN.TIE UP WORKER Work Phone: OB/Gynecology Comment on above: Doctor Patricio Start: 03-12-2023 Telephone encounter Adeel Meier rst DO Work Phone: Endocrinology Comment on above: 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) (Primary Dx); History of gestational diabetes in prior , currently Start: 03-11-2023 End: 03-11-2023 Patient encounter procedure Daphney Alcala APRN.TIE UP WORKER Work Phone: OB/Gynecology Comment on above: Encounter for superv ision of high risk in first trimester, antepartum (Primary Dx); 11 weeks gestation of ; with uncertain viability, single or unspecified fetus; Gestational diabetes mellitus in , controlled by oral hypoglycemic drugs; Nausea and vomiting during ; Cervical cancer screening; Depressive disorder; Anxiety state; History of abdominal hernia; History of asthma; History of atrial fibrillation; Multigravida of advanced maternal age in first trimester; History of labor, current , first trimester; Obesity affecting in first trimester, unspecified obesity type; History of gestational diabetes in prior , currently ; History of trichomoniasis; PCOS (polycystic ovarian syndrome) Start: 03-11-2023 Telephone encounter Jude marte Medicine Start: 02-19-2023 Refill Junior cleary MD Work Phone: [facility] Comment on above: Refill Request Start: 02-17-2023 ambulatory [facility] Facility:[id number] Start: 02-04-2023 ambulatory Junior cleary MD Work Phone: [facility] Start: 02-04-2023 Patient encounter procedure Junior Jeong MD Work Phone: Internal Medicine [place] Comment on above: Infection Prevention Practitioner Enmanuel crawford Start: 02-04-2023 Telephone encounter Mimi Harden MD Work Phone: OB/Gynecology Comment on above: Vocational Technical Education Teacher - O ther Start: 01-22-2023 ambulatory Junior cleary MD Work Phone: Internal Medicine [place] Comment on above: Meds safe? Start: 11-21-2022 Telephone encounter Junior parker MD Work Phone: Internal Medicine [place] Comment on above: Medication Request ( Pain meds for dental work) Start: 11-20-2022 Refill Fercho TERRAZASSHREDDED FILLER CUTTER OPERATOR Work Phone: Internal Medicine [place] Comment on above: Refill Request Start: 10-10-2022 ambulatory Junior cleary MD Work Phone: Internal Medicine [place] Comment on above: Work Accomodations N eeded Start: 09-16-2022 ambulatory Vasu Orozco [facility] Work Phone: [facility] Comment on above: Dexcom Start: 09-05-2022 End: 09-05-2022 ambulatory Vasu Orozco [facility] Work Phone: [facility] Comment on above: Controlled type 2 di abetes mellitus without complication, 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) (Primary Dx) Start: 09-05-2022 End: 09-05-2022 Telemedicine consultation with patient Vasu Orozco [facility] Work Phone: [facility] Start: 09-02-2022 Telephone encounter Vasu lomeli [facility] Work Phone: [facility] Comment on above: Appointment Start: 08-30-2022 End: 08-30-2022 Office outpatient visit 25 minutes Junior Jeong MD Work Phone: Internal Medicine [place] Comment on above: 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 alf insulin use (HCC) (Primary Dx); Dizziness; Nausea; Encounter for long-term current use of medication; Class 1 obesity due to excess calories with body mass index (BMI) of 32.0 to 32.9 in adult, unspecified whether serious comorbidity present Start: 08-19-2022 ambulatory Vasu Orozco RP [facility] Work Phone: [facility] Comment on above: Dexcom Start: 08-06-2022 ambulatory Vasu Orozco [facility] Work Phone: [facility] Comment on above: Dexcom Start: 08-05-2022 ambulatory Vasu Orozco [facility] Work Phone: [facility] Comment on above: Pharmacy Start: 08-03-2022 ambulatory Vasu Orozco RP [facility] Work Phone: [facility] Comment on above: Sugar help Start: 05-20-2022 ambulatory Rose lomeli MOVIE PROJECTIONIST.TIE UP WORKER Work Phone: Telemedicine Comment on above: Viral upper respirat ory tract infection (Primary Dx) Start: 05-19-2022 ambulatory Junior cleary MD Work Phone: Internal Medicine [place] Comment on above: Sinus infection Start: 05-06-2022 End: 05-06-2022 Office outpatient visit 15 minutes Junior Jeong MD Work Phone: Internal Medicine [place] Comment on above: Anxiety state (Prima ry Dx); Nausea Start: 04-12-2022 Refill Junior cleary MD Work Phone: Internal Medicine [place] Comment on above: Refill Request Start: 03-26-2022 Get Medical Advice Fercho sen 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 Work Phone: Internal Medicine [place] Comment on above: Medication refill ne eded Start: 03-08-2022 Refill Junior cleary MD Work Phone: Internal Medicine [place] Comment on above: Refill Request Start: 03-07-2022 ambulatory Vasu Orozco RP h Work Phone: Pharm [facility] Comment on above: Medication adjustmen t Start: 02-18-2022 ambulatory Junior cleary MD Work Phone: [facility] [place] Start: 02-18-2022 Patient encounter procedure Junior Jeong MD Work Phone: Internal Medicine [place] Comment on above: Appointments Start: 02-07-2022 End: 02-07-2022 Office outpatient visit 25 minutes Junior Jeong MD Work Phone: Internal Medicine [place] Comment on above: Acute right-sided lo w back pain without sciatica (Primary Dx); 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 alf insulin use (HCC); Mixed hyperlipidemia; Nausea; Class 2 obesity due to excess calories with body mass index (BMI) of 35.0 to 35.9 in adult, unspecified whether serious comorbidity present Start: 02-03-2022 Refill Junior cleary MD Work Phone: Internal Medicine [place] Comment on above: Refill Request Start: 02-01-2022 Refill Junior cleary MD Work Phone: Internal Medicine [place] Comment on above: Refill Request Start: 01-31-2022 Refill Junior cleary MD Work Phone: Pharm [facility] Comment on above: Refill Request Start: 01-16-2022 End: 01-16-2022 ambulatory Vasu Orozco [facility] Work Phone: Pharm [facility] Comment on above: 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 alf insulin use (HCC) (Primary Dx); Tobacco abuse Back wrap Start: 01-16-2022 End: 01-16-2022 Telemedicine consultation with patient Vasu Orozco [facility] Work Phone: [facility] [place] Start: 01-06-2022 End: 01-06-2022 ambulatory Kimber Slade PT [facility] Comment on above: Acute right-sided lo w back pain without sciatica (Primary Dx) X-ray results Start: 01-06-2022 End: 01-06-2022 Subsequent hospital visit by physician Daphne [facility] [place] [facility] Work Phone: Radiology Comment on above: Acute right-sided lo w back pain without sciatica [M54.50] Start: 01-03-2022 Telephone encounter Junior parker MD Work Phone: Internal Medicine [place] Comment on above: ER FYI (ER provider called with FYI) Start: 12-30-2021 End: 12-30-2021 ambulatory Fercho Perez 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 Work Phone: Internal Medicine [place] Comment on above: Acute right-sided lo w back pain without sciatica (Primary Dx); Lower abdominal pain Start: 12-30-2021 End: 12-30-2021 Telemedicine consultation with patient Fercho Perez APRN.SHREDDED FILLER CUTTER OPERATOR Work Phone: [facility] Start: 12-25-2021 End: 12-25-2021 [facility] Comment on above: 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 alf insulin use (HCC) (Primary Dx); Tobacco abuse Start: 12-25-2021 End: 12-25-2021 Telemedicine consultation with patient Vasu Orozco [facility] Work Phone: [facility] Start: 12-24-2021 Refill Fercho Perez A PRN.SHREDDED FILLER CUTTER OPERATOR Work Phone: Internal Medicine [place] Comment on above: Refill Request Start: 12-23-2021 ambulatory Fercho Perez A PRN.SHREDDED FILLER CUTTER OPERATOR Work Phone: Internal Medicine [place] Comment on above: Prescription renew Refill Request Start: 12-23-2021 Telephone encounter Junior parker MD Work Phone: Internal Medicine [place] Comment on above: Pain, Back Start: 12-20-2021 ambulatory Junior cleary MD Work Phone: Internal Medicine [place] Comment on above: Back Pain Start: 12-13-2021 Refill Fercho Perez A PRN.SHREDDED FILLER CUTTER OPERATOR Work Phone: [facility] Comment on above: Refill Request Start: 12-05-2021 End: 12-05-2021 [facility] Comment on above: 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) (Primary Dx); Tobacco abuse Start: 12-05-2021 End: 12-05-2021 Telemedicine consultation with patient Vasu Orozco [facility] Work Phone: [facility] Start: 11-27-2021 ambulatory Vasu [facility] Work Phone: [facility] Comment on above: Loratadine Start: 11-22-2021 ambulatory Junior cleary MD Work Phone: Internal Medicine [place] Comment on above: Hydroxyzine Start: 11-18-2021 End: 11-18-2021 Patient encounter procedure Fercho Perez 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 Work Phone: Internal Medicine [place] Comment on above: 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) (Primary Dx); Encounter for immunization; Screening for cervical cancer; Well woman exam with routine gynecological exam; Gastroesophageal reflux disease, unspecified whether esophagitis present; Mixed hyperlipidemia Start: 10-25-2021 ambulatory Fercho Hiness A PRN.SHREDDED FILLER CUTTER OPERATOR Work Phone: Internal Medicine [place] Comment on above: Eye drops Start: 10-23-2021 Refill Fercho Hiness A PRN.SHREDDED FILLER CUTTER OPERATOR Work Phone: Internal Medicine [place] Comment on above: Refill Request Start: 10-18-2021 Refill Fercho Perez A PRN.SHREDDED FILLER CUTTER OPERATOR Work Phone: Internal Medicine [place] Comment on above: Refill Request Start: 10-11-2021 Refill Fercho Perez A PRN.SHREDDED FILLER CUTTER OPERATOR Work Phone: [facility] Comment on above: Refill Request Start: 10-03-2021 End: 10-03-2021 ambulatory Vasu [facility] Work Phone: [facility] Comment on above: 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 alf insulin use (HCC) (Primary Dx); Tobacco abuse Start: 10-03-2021 End: 10-03-2021 Telemedicine consultation with patient Vasu Orozco [facility] Work Phone: [facility] Start: 09-05-2021 End: 09-05-2021 ambulatory Vasu Orozco [facility] Work Phone: [facility] Comment on above: 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) (Primary Dx) Start: 09-05-2021 End: 09-05-2021 Telemedicine consultation with patient Vasu Orozco [facility] Work Phone: [facility] Start: 08-26-2021 Telephone encounter Junior parker MD Work Phone: Internal Medicine [place] Comment on above: Patient Update Start: 08-22-2021 End: 08-22-2021 ambulatory Vasu Orozco [facility] Work Phone: [facility] Comment on above: 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) (Primary Dx) Sugar Readings Start: 08-22-2021 End: 08-22-2021 Telemedicine consultation with patient Vasu Orozco [facility] Work Phone: [facility] [place] Procedures Date Procedure Procedure Detail Performing Clinician Start: 09-20-2024 Brncdilat rspse spmt ry pre&post-brncdilat admn Fercho Perez 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 Work Phone: Start: 02-22-2024 Glucose quantitative blood xcpt reagent strip Emani Pal Constantin DO Work Phone: Start: 02-22-2024 Glucose quantitative blood xcpt reagent strip Emani W Constantin DO Work Phone: Start: 02-21-2024 Glucose quantitative blood xcpt reagent strip Emani Pal [facility] DO Work Phone: Start: 02-21-2024 Glucose quantitative blood xcpt reagent strip Emani W Constantin DO Work Phone: Start: 02-21-2024 Glucose quantitative blood xcpt reagent strip Emani Encinas DO Work Phone: Start: 02-21-2024 Glucose quantitative blood xcpt reagent strip Chacha Miranda MD Work Phone: Start: 02-21-2024 Blood count hemoglobin Michael Moschella DO Work Phone: Start: 02-21-2024 Adult depression scr eening assessment Ramirez Hammonds DO Work Phone: Start: 02-20-2024 Glucose quantitative blood xcpt reagent strip Chacha Miranda MD Work Phone: Start: 02-20-2024 Glucose quantitative blood xcpt reagent strip Chacha Miranda MD Work Phone: Start: 02-20-2024 Glucose quantitative blood xcpt reagent strip Chacha Miranda MD Work Phone: Start: 02-20-2024 Glucose quantitative blood xcpt reagent strip Chacha Miranda MD Work Phone: Start: 02-20-2024 Glucose quantitative blood xcpt reagent strip Chacha Miranda MD Work Phone: Start: 02-20-2024 Glucose quantitative blood xcpt reagent strip Chacha Miranda MD Work Phone: Start: 02-20-2024 Hgb/rbcs fetom aternal hemrrg difrntl lysis Rajiv Gemsantana DO Work Phone: Start: 02-19-2024 Blood count complete automated Rajiv Gemma DO Work Phone: Start: 02-19-2024 Ecg routine ecg w/le ast 12 lds trcg only w/o i&r Brooke Isaias DO Work Phone: Start: 02-19-2024 Glucose quantitative blood xcpt reagent strip Chacha Miranda MD Work Phone: Start: 02-19-2024 Glucose quantitative blood xcpt reagent strip Chacha Miranda MD Work Phone: Start: 02-19-2024 Glucose quantitative blood xcpt reagent strip Chacha Miranda MD Work Phone: Start: 02-19-2024 Glucose quantitative blood xcpt reagent strip Chacha Miranda MD Work Phone: Start: 02-19-2024 Glucose quantitative blood xcpt reagent strip Chacha Miranda MD Work Phone: Start: 02-19-2024 End: 02-19-2024 Blood count complete automated Ally Chino MD Work Phone: Start: 02-19-2024 Antibody screen RAJIV MALDONADO Comment on above: Performed By: #### L [id number] ####Solar System Installer: DAPHNEY ORELLANA ([id number])[facility]OD [facility] ([address] Start: 02-19-2024 Antibody screen rbc each serum technique Vikki Díaz DO Work Phone: Start: 02-19-2024 Glucose quantitative blood xcpt reagent strip Chacha Miranda MD Work Phone: Start: 02-18-2024 biophysical pr ofile w/o non-stress testing Ally Chino MD Work Phone: Start: 02-18-2024 End: 02-18-2024 Glucose quantitative blood xcpt reagent strip Chacha Miranda MD Work Phone: Start: 02-17-2024 Glucose quantitative blood xcpt reagent strip Chacha Miranda MD Work Phone: Start: 02-17-2024 Glucose quantitative blood xcpt reagent strip Chacha Miranda MD Work Phone: Start: 02-17-2024 End: 02-17-2024 Creatinine other source Ally Chino MD Work Phone: Start: 02-17-2024 Glucose quantitative blood xcpt reagent strip Chacha Miranda MD Work Phone: Start: 02-17-2024 Glucose quantitative blood xcpt reagent strip Chcaha Miranda MD Work Phone: Start: 02-17-2024 Glucose quantitative blood xcpt reagent strip Chacha Miranda MD Work Phone: Start: 02-17-2024 End: 02-17-2024 Blood count complete automated Irasemakolby Paredes DO Work Phone: Start: 02-17-2024 Glucose quantitative blood xcpt reagent strip Chacha Miranda MD Work Phone: Start: 02-16-2024 Glucose quantitative blood xcpt reagent strip Chacha Miranda MD Work Phone: Start: 02-16-2024 Glucose quantitative blood xcpt reagent strip Chacha Miranda MD Work Phone: Start: 02-16-2024 Glucose quantitative blood xcpt reagent strip Chacha Miranda MD Work Phone: Start: 02-16-2024 Glucose quantitative blood xcpt reagent strip Chacha Miranda MD Work Phone: Start: 02-16-2024 Glucose quantitative blood xcpt reagent strip Chacha Miranda MD Work Phone: Start: 02-16-2024 Glucose quantitative blood xcpt reagent strip Chacha Miranda MD Work Phone: Start: 02-16-2024 Glucose quantitative blood xcpt reagent strip Chacha Miranda MD Work Phone: Start: 02-16-2024 biophysical pr ofile w/o non-stress testing Irasemakolby Paredes DO Work Phone: Start: 02-16-2024 End: 02-16-2024 Glucose quantitative blood xcpt reagent strip Chacha Miranda MD Work Phone: Start: 02-16-2024 End: 02-16-2024 Comprehensive metabolic panel Irasema Schlieper DO Work Phone: Start: 02-16-2024 End: 02-16-2024 Glucose quantitative blood xcpt reagent strip Chacha Miranda MD Work Phone: Start: 02-16-2024 Glucose quantitative blood xcpt reagent strip Chacha Miranda MD Work Phone: Start: 02-16-2024 End: 02-16-2024 Glucose quantitative blood xcpt reagent strip Chacha Miranda MD Work Phone: Start: 02-16-2024 End: 02-16-2024 Glucose quantitative blood xcpt reagent strip Chacha Miranda MD Work Phone: Start: 02-15-2024 End: 02-15-2024 Comprehensive metabolic panel Irasema Paredes DO Work Phone: Start: 02-15-2024 Antibody screen RAJIV MALDONADO Comment on above: Order Comment: HOLD. Specimen is valid for 3 days - nurse to verify valid specimen Performed By: #### L [id number] ####Solar System Installer: DAPHNEY ORELLANA ([id number])[facility] BLOOD [facility] ([facility])[address] [place] [address] Start: 02-15-2024 ABO and Rh group [Ty pe] in Blood by Confirmatory method Irasema Paredes DO Work Phone: Start: 02-15-2024 Blood typing serologic abo Irasemakolby Paredes DO Work Phone: Start: 02-15-2024 End: 02-15-2024 Culture bacterial quanttative colony count urine Irasemakolby Paredes DO Work Phone: Start: 02-15-2024 Fern test Vikki bey DO Work Phone: Start: 02-15-2024 Glucose quantitative blood xcpt reagent strip Lars Leo MD Work Phone: Start: 02-15-2024 Us preg uterus after 1st trimest 05/25 gestation Rosaline Sanon MD Work Phone: Start: 01-07-2024 Urnls dip stick/tabl et rgnt non-auto w/o micrscp Deepthi Santana MD Work Phone: Start: 12-21-2023 Urnls dip stick/tabl et rgnt auto w/o microscopy Rosaline Sanon MD Work Phone: Start: 12-21-2023 Us preg uterus after 1st trimest 05/25 gestation Rosaline Sanon MD Work Phone: Start: 11-27-2023 Urnls dip stick/tabl et rgnt auto w/o microscopy Rosaline Sanon MD Work Phone: Start: 11-27-2023 Us preg uterus after 1st trimest 05/25 gestation Vasu Gaxiola APRN.TIE UP WORKER Work Phone: Start: 10-30-2023 Antibody screen MAGED BATISTA Comment on above: Order Comment: Speci men Type: BLOOD SPECIMEN Ordering Facility: [facility] Address: [address] [place] [address] Performed By: #### T SPN #### [facility] [place] [id number] [address] [place] [address] [place] Start: 10-27-2023 Us nuchal translucency 1st gestation Mimi Harden MD Work Phone: Start: 09-16-2023 Us uterus l imited fetuses Vasu Gaxiola APRN.TIE UP WORKER Work Phone: Start: 09-16-2023 Iadna chlamydia trac homatis amplified probe tq Vasu Gaxiola APRN.TIE UP WORKER Work Phone: Start: 09-16-2023 UA DIP,URINE HCG (POC) Vasu Gaxiola APRN.TIE UP WORKER Work Phone: Start: 04-13-2023 Us preg uterus after 1st trimest 05/25 gestation Deedee Danielskarl YUNG Work Phone: Start: 04-12-2023 Antibody screen MAGED BATISTA Comment on above: Order Comment: Speci men Type: BLOOD SPECIMEN Ordering Facility: [facility] Address: [address], [place] [address] Performed By: #### T SPN #### [facility] CLIA [id number] [address] [place] [id number] [place] Start: 04-09-2023 URINE OB DIP B/O Richie Doll MD Work Phone: Start: 03-20-2023 Us nuchal translucency 1st gestation Vasu Gaxiola MOVIE PROJECTIONIST.TIE UP WORKER Work Phone: Start: 03-11-2023 Iadna chlamydia trac homatis amplified probe tq Vasu Minor MOVIE PROJECTIONIST.TIE UP WORKER Work Phone: Start: 03-11-2023 Us uterus l imited 1/> fetuses Daphney Alcala MOVIE PROJECTIONIST.TIE UP WORKER Work Phone: Start: 03-11-2023 Microscopic observat ion [Identifier] in Cervix by Cyto stain Ramirez Hammonds DO Work Phone: Start: 08-30-2022 Hemoglobin A1c/Hemoglobin.total in Blood Junior Jeong MD Work Phone: Start: 02-01-2022 Adult depression scr eening assessment Junior Jeong MD Work Phone: Start: 01-06-2022 Radex spine lumbosac ral 2/3 views Fercho Perez APRN.SHREDDED FILLER CUTTER OPERATOR Work Phone: Start: 11-18-2021 Adult depression scr eening assessment Fercho Perez APRN.SHREDDED FILLER CUTTER OPERATOR Work Phone: Start: 10-02-2020 Adult depression scr eening assessment Vasu [facility] Work Phone: Plan of Treatment Date Care Activity Detail Author Start: 2048 RSV Immunization age d 60 or older (1 - 1-dose 60+ series) RSV Immunization aged 60 or older (1 - 1-dose 60+ series) [facility] Start: 01-04-2038 Zoster Vaccines (1 o f 2) Zoster Vaccines (1 of 2) [facility] Start: 03-11-2028 HPV Testing HPV Testing [facility] Start: 03-11-2028 Pap Testing Pap Testing [facility] Start: 03-11-2028 Screening for malignant neoplasm of cervix [facility] Start: 03-11-2026 Screening for malignant neoplasm of cervix [facility] Start: 09-20-2025 Hepatitis B screening Urine Al bumin:Creatinine Ratio [facility] Start: 09-20-2025 Hepatitis B surface antibody level LDL Cholesterol [facility] Start: 08-07-2025 End: 08-07-2025 Patient encounter procedure 08/07/2025 10:20 AM EDT Office Visit Internal Medicine [facility] [address] [place] [address] Fercho Perez APRN.SHREDDED FILLER CUTTER OPERATOR [address] [place] [address] 6 month f/u Internal Medicine [place] Comment on above: 6 month f/u Start: 08-05-2025 Annual PCP Team Chronic Disease Visit Annual PCP Team Chronic Disease Visit [facility] Start: 08-05-2025 Covid-19 Vaccine ( season) Covid-19 Vaccine ( season) [facility] Comment on above: Postponed from 01/23 (Declined at this time) Start: 08-05-2025 Diabetic foot examination Diabetic Foot Exam [facility] Start: 08-05-2025 Glaucoma screening Dilated Retinal E xam [facility] Start: 08-05-2025 Hepatitis B Vaccine (1 of 3 - 19+ 3-dose series) Hepatitis B Vaccine (1 of 3 - 19+ 3-dose series) [facility] Comment on above: Postponed from 01/04 (Declined at this time) Start: 08-05-2025 Pneumococcal vaccination Pneumococcal Vaccine (1 of 2 - PCV) [facility] Comment on above: Postponed from 01/04 (Declined at this time) Start: 08-05-2025 Urine microalbumin profile DTaP,Tdap,Td Vaccine (1 - Tdap) [facility] Comment on above: Postponed from 01/04 (Declined at this time) Start: 05-01-2025 End: 05-01-2025 Patient encounter procedure 05/01/2025 1:30 PM EST Office Visit OB/Gynecology [address] [place] [address] Vasu Gaxiola APRN.TIE UP WORKER [address] [place] [address] Annual OB/Gynecology Comment on above: Annual Start: 04-24-2025 HPV TESTING HPV TESTING [facility] Start: 04-24-2025 PAP TESTING PAP TESTING [facility] Start: 04-03-2025 End: 04-03-2025 Patient encounter procedure 04/03/2025 2:45 PM EST Office Visit OB/Gynecology [address] [place] [address] Vasu Gaxiola APRN.TIE UP WORKER [address] [place] [address] Annual OB/Gynecology Comment on above: Annual Start: 03-01-2025 End: 03-01-2025 ambulatory 03/01/2025 2:00 PM EDT [facility] Endocrinology [address] [place] [address] Adeel Ramirez, [address] [place] [address] rescheduled appt from 10/05/2024. Endocrinology Comment on above: rescheduled appt [facility] 10/05/2024. Start: 02-21-2025 End: 02-21-2025 Patient encounter procedure 02/21/2025 10:20 AM EDT Office Visit Internal Medicine [place] [address] [place] [address] Junior Jeong MD [address] [place] [address] 6 month f/u [facility] [place] Comment on above: 6 month f/u Start: 02-20-2025 Depression Screening Depression Scre [facility] Start: 02-15-2025 Diabetes: Estimated Glomerular Filtration Rate for [facility] Health Diabetes: Estimated Glomerular Filtration Rate for Kidney Health [facility] Start: 02-14-2025 Hemoglobin A1c measurement Diabetes: Hemoglobin A1C [facility] Start: 01-23-2025 Influenza vaccination [facility] Start: 12-20-2024 Hemoglobin A1c measurement HbA1C [facility] Start: 11-21-2024 Influenza vaccination Influenza Vacc ine (#1) [facility] Comment on above: Postponed from 01/23 (Declined at this time) Start: 10-18-2024 End: 10-18-2024 Patient encounter procedure 10/18/2024 11:20 AM EDT [facility] Endocrinology [address] [place] [address] Adeel Ramirez, DO [address] [place], [place] [id number] Please contact and offer pt appointment in August or September (f/u type 2 DM) Endocrinology Comment on above: Please contact and o ffer pt appointment in August or September (f/u type 2 DM) Start: 09-08-2024 Annual PCP Team Chronic Disease Visit Annual PCP Team Chronic Disease Visit [facility] Start: 08-24-2024 End: 08-24-2024 ambulatory [facility] Comment on above: Asthma during pregna ncy [O99.519, J45.909] Start: 08-23-2024 End: 11-22-2024 CBC panel - Blood by Automated count COMPLETE BLOOD COUNT Lab Routine Controlled type 2 diabetes mellitus without complication, without long-term current use of insulin (HCC) Expected: 08/23/2024 (Approximate), Expires: 11/22/2024 [facility] Comment on above: Expected: 08/23/2024 (Approximate), Expires: 11/22/2024 Start: 08-23-2024 End: 11-22-2024 Comprehensive metabolic 2000 panel - Serum or Plasma COMPREHENSIVE METABOLIC PANEL Lab Routine Controlled type 2 diabetes mellitus without complication, without long-term current use of insulin (HCC) Expected: 08/23/2024 (Approximate), Expires: 11/22/2024 [facility] Work Phone: Comment on above: Expected: 08/23/2024 (Approximate), Expires: 11/22/2024 Start: 08-23-2024 End: 11-22-2024 Hemoglobin A1c in Blood HEMOGLOBIN A1C Lab Routine Controlled type 2 diabetes mellitus without complication, without long-term current use of insulin (HCC) Expected: 08/23/2024 (Approximate), Expires: 11/22/2024 [facility] Comment on above: Expected: 08/23/2024 (Approximate), Expires: 11/22/2024 Start: 08-23-2024 End: 11-22-2024 Lipid 1996 panel - Serum or Plasma LIPID PANEL BASIC Lab Routine Controlled type 2 diabetes mellitus without complication, without long-term current use of insulin (HCC) Expected: 08/23/2024 (Approximate), Expires: 11/22/2024 [facility] Comment on above: Expected: 08/23/2024 (Approximate), Expires: 11/22/2024 Start: 08-23-2024 End: 11-22-2024 Microalbumin/Creatinin e [Mass Ratio] in Urine ALBUMIN/CREATININE RATIO, URINE Lab Routine Controlled type 2 diabetes mellitus without complication, without long-term current use of insulin (HCC) Expected: 08/23/2024 (Approximate), Expires: 11/22/2024 [facility] Comment on above: Expected: 08/23/2024 (Approximate), Expires: 11/22/2024 Start: 08-23-2024 End: 11-22-2024 Thyrotropin [Units/volume] in Serum or Plasma THYROID STIMULATING HORMONE Lab Routine Controlled type 2 diabetes mellitus without complication, without long-term current use of insulin (HCC) Expected: 08/23/2024 (Approximate), Expires: 11/22/2024 [facility] Comment on above: Expected: 08/23/2024 (Approximate), Expires: 11/22/2024 Start: 08-20-2024 Depression Monitoring Depression [facility] Start: 08-14-2024 Hemoglobin A1c measurement HbA1C [facility] Start: 08-05-2024 End: 08-05-2024 Patient encounter procedure 08/05/2024 11:00 AM EDT Office Visit Internal Medicine [facility] [address] [place] [address] Fercho Perez, 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 [address] [place] [address] Yearly check up [facility] Comment on above: Yearly check up Start: 08-04-2024 Annual PCP Team Chronic Disease Visit Annual PCP Team Chronic Disease Visit [facility] Start: 08-04-2024 End: 08-04-2024 Patient encounter procedure 08/04/2024 11:00 AM EDT Office Visit Internal Medicine [facility] [address] [place] [address] Fercho Perez APRN.SHREDDED FILLER CUTTER OPERATOR [address] [place] [address] Yearly check up [facility] Comment on above: Yearly check up Start: 07-14-2024 Diabetes: Urine Albumin-Creatinine Ratio for [facility]ney Health Diabetes: Urine Albumin-Creatinine Ratio for [facility] Start: 07-14-2024 Hepatitis B screening Urine Al bumin:Creatinine Ratio [facility] Start: 07-14-2024 Hepatitis B surface antibody level LDL Cholesterol [facility] Start: 07-10-2024 Hemoglobin A1c measurement HbA1C [facility] Start: 05-13-2024 End: 05-13-2024 Patient encounter procedure 05/13/2024 8:45 AM EST Office Visit Podiatry [address] [place] [address] Lizette Pierce [address] [phone] Losing toenail needs checked Podiatry Comment on above: Losing toenail needs checked Start: 05-03-2024 End: 05-03-2024 Patient encounter procedure 05/03/2024 9:45 AM EST Office Visit Podiatry [address] [place] [address] Lizette Pierce [address] [phone] Losing toenail needs checked Podiatry Comment on above: Losing toenail needs checked Start: 04-21-2024 Glaucoma screening Dilated Retinal E xam [facility] Start: 04-21-2024 Hepatitis C antibody , confirmatory test Dilated Retinal Exam [facility] Start: 04-15-2024 Hemoglobin A1c measurement HbA1C [facility] Start: 04-14-2024 End: 04-14-2024 Patient encounter procedure 04/14/2024 7:15 AM EST Office Visit OB/Gynecology [address] [place] [address] Vasu Gaxiola APRN.TIE UP WORKER [address] [place] [address] annual OB/Gynecology Comment on above: annual Start: 03-30-2024 End: 03-30-2024 Patient encounter procedure OB/Gynecology Comment on above: OB Ryne After delivery/ follow up appointment Start: 03-24-2024 End: 03-24-2024 Patient encounter procedure 03/24/2024 11:30 AM EDT Office Visit [facility] [address] [place] [address] Caro Salinas APRN - TIE UP WORKER [address] [place] [address] [facility] Start: 03-16-2024 End: 03-16-2024 Patient encounter procedure Maternal Medicine Comment on above: Growth US BPP OB Routine Start: 03-15-2024 RSV Vaccine (1 - Ris k 1-dose series) RSV Vaccine (1 - Risk 1-dose series) [facility] Start: 03-02-2024 End: 03-02-2024 Patient encounter procedure 03/02/2024 10:40 AM EDT Routine Office Visit OB/Gynecology [address] [place] [address] Rosaline Sanon MD [address] [place] [address] OB Routine OB/Gynecology Comment on above: OB Routine Start: 02-29-2024 End: 02-29-2024 Patient encounter procedure 02/29/2024 2:15 PM EDT Office Visit [facility] [address] [place] [phone] Ramirez Hammonds DO [address] [facility] [place] [address] [facility] Start: 02-29-2024 End: 02-29-2024 ambulatory 02/29/2024 10:40 AM EDT [facility] Endocrinology [address] [place] [address] Adeel Ramirez DO [address] [place] [address] see me in 8 weeks for f/u- virtual visit ok-per [facility] Endocrinology Comment on above: see me in 8 weeks fo r f/u- virtual visit ok-per KB Start: 02-26-2024 End: 02-26-2024 Patient encounter procedure 02/26/2024 2:10 PM EDT Office Visit [facility] [address] [place] [phone] [facility] Start: 02-17-2024 End: 02-17-2024 ambulatory 02/17/2024 3:00 PM EDT [facility] Endocrinology [address] [place] [address] Adeel Ramirez DO [address] [place] [address] Six months- DM, virtual ok per [facility] Endocrinology Comment on above: Six months- DM, virt ual ok per KB Start: 02-15-2024 End: 02-15-2024 Patient encounter procedure OB/Gynecology Comment on above: Growth OB u/s first-OB Start: 02-12-2024 End: 02-12-2024 Patient encounter procedure 02/12/2024 1:40 PM EDT Office Visit Internal Medicine [place] [address] [place], [place] [phone] Junior Jeong MD [address] [place] [place] [address] 6 month follow up Internal Medicine [place] Comment on above: 6 month follow up Start: 02-04-2024 Annual PCP Team Chronic Disease Visit Annual PCP Team Chronic Disease Visit [facility] Start: 01-26-2024 End: 01-26-2024 ambulatory 01/26/2024 12:00 PM EDT Results Only [place] [facility] [address] [place] [address] [place] [facility] Start: 01-24-2024 End: 04-24-2024 ALBUMIN/CREAT RATIO RND UR ALBUMIN/CREAT RATIO RND UR Lab Routine Controlled type 2 diabetes mellitus without complication, without long-term current use of insulin (HCC) Expected: 01/24/2024 (Approximate), Expires: 04/24/2024 [facility] Work Phone: Comment on above: Expected: 01/24/2024 (Approximate), Expires: 04/24/2024 Start: 01-24-2024 End: 04-24-2024 Comprehensive metabolic 2000 panel - Serum or Plasma COMP METABOLIC PANEL Lab Routine Controlled type 2 diabetes mellitus without complication, without long-term current use of insulin (HCC) Expected: 01/24/2024 (Approximate), Expires: 04/24/2024 [facility] Work Phone: Comment on above: Expected: 01/24/2024 (Approximate), Expires: 04/24/2024 Start: 01-24-2024 Covid-19 Vaccine ( season) Covid-19 Vaccine () [facility] Start: 01-24-2024 Covid-19 Vaccine () Covid-19 Vaccine () [facility] Start: 01-24-2024 End: 04-24-2024 Hemoglobin A1c in Blood HGB A1C Lab Routine Controlled type 2 diabetes mellitus without complication, without long-term current use of insulin (HCC) Expected: 01/24/2024 (Approximate), Expires: 04/24/2024 [facility] Work Phone: Comment on above: Expected: 01/24/2024 (Approximate), Expires: 04/24/2024 Start: 01-24-2024 Influenza vaccination [facility] Start: 01-24-2024 End: 04-24-2024 Thyrotropin [Units/volume] in Serum or Plasma TSH BLD Lab Routine Controlled type 2 diabetes mellitus without complication, without long-term current use of insulin (HCC) Expected: 01/24/2024 (Approximate), Expires: 04/24/2024 [facility] Work Phone: Comment on above: Expected: 01/24/2024 (Approximate), Expires: 04/24/2024 Start: 01-12-2024 Hemoglobin A1c measurement HbA1C [facility] Start: 01-08-2024 End: 01-08-2024 ambulatory 01/08/2024 11:15 AM EDT Results Only [facility] [address] [place] [address] [facility] Start: 01-07-2024 End: 04-07-2024 CBC W Auto Differential panel - Blood COMPLETE BLOOD COUNT AND DIFFERENTIAL Lab Routine 22 weeks gestation of Multigravida of advanced maternal age in second trimester Obesity affecting in second trimester, unspecified obesity type Pre-existing type 2 diabetes mellitus during in first trimester Expected: 01/07/2024, Expires: 04/07/2024 [facility] Comment on above: Expected: 01/07/2024 , Expires: 04/07/2024 Start: 01-07-2024 End: 04-07-2024 SYPHILIS TOTAL W/REFLEX SYPHILIS TOTAL W/REFLEX Lab Routine 22 weeks gestation of Multigravida of advanced maternal age in second trimester Obesity affecting in second trimester, unspecified obesity type Pre-existing type 2 diabetes mellitus during in first trimester Expected: 01/07/2024, Expires: 04/07/2024 [facility] Work Phone: Comment on above: Expected: 01/07/2024 , Expires: 04/07/2024 Start: 01-07-2024 End: 01-07-2024 Patient encounter procedure 01/07/2024 9:00 AM EDT Routine Office Visit OB/Gynecology [address] [place] [address] Deepthi Santana MD [address] [place] [address] OB-ER follow up OB/Gynecology Comment on above: OB-ER follow up Start: 01-04-2024 End: 01-04-2024 ambulatory 01/04/2024 11:00 AM EDT [facility] Endocrinology [address] [place] [address] Adeel Ramirez, DO [address] [place], [place] [id number] 8 weeks virtual ok type 2 DM in Endocrinology Comment on above: 8 weeks virtual ok t ype 2 DM in Start: 12-21-2023 End: 12-21-2023 Patient encounter procedure OB/Gynecology Comment on above: Anatomy OB Start: 11-27-2023 End: 11-26-2024 OBSTETRIC ULTRASOUND I [facility] Work Phone: Comment on above: Expected: 11/27/2023 , Expires: 11/26/2024 Start: 11-27-2023 End: 11-27-2023 Patient encounter procedure 11/27/2023 1:30 PM EDT Routine Office Visit OB/Gynecology [address] [place] [address] Rosaline Sanon MD [address] [place] [address] OB OB/Gynecology Comment on above: OB Start: 11-27-2023 End: 11-27-2023 Patient encounter procedure 11/27/2023 10:30 AM EDT Routine Office Visit OB/Gynecology [address] [place] [address] uS OB/Gynecology Comment on above: uS Start: 11-09-2023 End: 11-09-2023 Patient encounter procedure 11/09/2023 3:50 PM EDT Routine Office Visit OB/Gynecology [address] [place] [address] Mimi Harden MD [address] [place] [address] OB OB/Gynecology Comment on above: OB Start: 11-05-2023 End: 11-05-2023 Patient encounter procedure 11/05/2023 11:00 AM EDT [facility] Endocrinology [address] [place] [address] Adeel Ramirez, DO [address] [place] [address] She will return to clinic in 6 weeks per [facility] Endocrinology Comment on above: She will return to [facility] in 6 weeks per [facility] Start: 10-30-2023 End: 10-30-2023 Admission to same day surgery center 10/30/2023 12:00 PM EDT - 10/30/2023 2:00 PM EDT Surgery [place] [address] [place], [place] [phone] Maged Batista DO [address] [place] [address] CERCLAGE CERVIX DURING VAGINAL [place] [facility] [facility] Comment on above: CERCLAGE CERVIX DURI NG VAGINAL Start: 10-30-2023 End: 10-30-2023 Cerclage cervix vaginal CERCLAGE CERVIX DURING VAGINAL History of prior with short cervix, currently History of delivery, currently 10/30/2023 12:00 PM EDT [place] [facility] Start: 10-30-2023 Subsequent hospital visit by physician 10/30/2023 12:00 PM EDT Hospital Encounter [place] [address] [place] [address] Maged Batista DO [address] [place] [address] History of prior with short cervix, currently [O09.299] [place] [address] [facility] Comment on above: History of prior pre gnancy with short cervix, currently [O09.299] Start: 10-27-2023 End: 10-27-2023 Patient encounter procedure 10/27/2023 10:00 AM EDT Routine Office Visit OB/Gynecology [address] [place] [id number] Consult to MFM/ Nuchal OB/Gynecology Comment on above: Consult to MFM/ Nuch al Start: 10-18-2023 ANNUAL PCP TEAM CHRONIC DISEASE VISIT ANNUAL PCP TEAM CHRONIC DISEASE VISIT [facility] Start: 10-16-2023 End: 10-16-2023 ambulatory 10/16/2023 9:00 AM EDT Education Maternal Medicine [facility] [address] [place] [address] [place] [address] [place] [address] Type 2 Maternal Medicine [facility] Comment on above: Type 2 Start: 10-16-2023 End: 10-16-2023 Patient encounter procedure Maternal Medicine [facility] Comment on above: Type 2 Start: 10-14-2023 End: 10-13-2024 NUCHAL TRANSLUCENCY WHI NUCHAL TRANSLUCENCY WHI Anc Imaging Routine Pre-existing type 2 diabetes mellitus during in first trimester Multigravida of advanced maternal age in first trimester Supervision of other high risk pregnancies, first trimester Obesity affecting in first trimester, unspecified obesity type Expected: 10/14/2023, Expires: 10/13/2024 [facility] Work Phone: Comment on above: Expected: 10/14/2023 , Expires: 10/13/2024 Start: 10-14-2023 End: 10-14-2023 ambulatory 10/14/2023 10:30 AM EDT Results Only [facility] Draw Station [address] [facility] [place] [id number] [facility] Draw Station Start: 10-14-2023 End: 10-14-2023 Patient encounter procedure 10/14/2023 10:10 AM EDT Routine Office Visit OB/Gynecology [address] [place] [address] Mimi Harden MD [address] [place] [address] OB OB/Gynecology Comment on above: OB Start: 09-26-2023 End: 09-26-2023 ambulatory 09/26/2023 11:00 AM EDT [facility] Endocrinology [address] [place] [address] Adeel Ramirez, [address] [place], [place] [id number] NEW GDM Endocrinology Comment on above: NEW GDM Start: 09-21-2023 End: 09-20-2024 OBSTETRIC ULTRASOUND WHI OBSTETRIC ULTRASOUND WHI Anc Imaging Routine Encounter for supervision of high risk in first trimester, antepartum Expected: 09/21/2023, Expires: 09/20/2024 [facility] Work Phone: Comment on above: Expected: 09/21/2023 , Expires: 09/20/2024 Start: 09-18-2023 Hepatitis C antibody , confirmatory test DILATED RETINAL EXAM [facility] Start: 09-16-2023 End: 12-16-2023 CBC panel - Blood by Automated count COMPLETE BLOOD COUNT Lab Routine Supervision of high risk in first trimester Expected: 09/16/2023, Expires: 12/16/2023 [facility] Comment on above: Expected: 09/16/2023 , Expires: 12/16/2023 Start: 09-16-2023 End: 12-16-2023 Chromosome 21 trisomy [Presence] in Blood or Tissue by Cytogenetics [id number] PLUS Lab Routine Less than 8 weeks gestation of with uncertain dates in first trimester Pre-existing type 2 diabetes mellitus during in first trimester Expected: 09/16/2023, Expires: 12/16/2023 [facility] Work Phone: Comment on above: Expected: 09/16/2023 , Expires: 12/16/2023 Start: 09-16-2023 End: 12-16-2023 Comprehensive metabolic 2000 panel - Serum or Plasma COMPREHENSIVE METABOLIC PANEL Lab Routine Pre-existing type 2 diabetes mellitus during in first trimester Expected: 09/16/2023, Expires: 12/16/2023 [facility] Comment on above: Expected: 09/16/2023 , Expires: 12/16/2023 Start: 09-16-2023 End: 12-16-2023 Hemoglobin A1c in Blood HEMOGLOBIN A1C Lab Routine Supervision of high risk in first trimester Expected: 09/16/2023, Expires: 12/16/2023 [facility] Comment on above: Expected: 09/16/2023 , Expires: 12/16/2023 Start: 09-16-2023 End: 12-16-2023 Hepatitis B virus surface Ag [Presence] in Serum HEPATITIS B SURFACE ANTIGEN Lab Routine Supervision of high risk in first trimester Expected: 09/16/2023, Expires: 12/16/2023 [facility] Comment on above: Expected: 09/16/2023 , Expires: 12/16/2023 Start: 09-16-2023 End: 12-16-2023 Hepatitis C virus Ab [Presence] in Serum HEPATITIS C ANTIBODY IA WITH CONFIRMATION Lab Routine Supervision of high risk in first trimester Expected: 09/16/2023, Expires: 12/16/2023 [facility] Comment on above: Expected: 09/16/2023 , Expires: 12/16/2023 Start: 09-16-2023 End: 12-16-2023 HIV 1+2 Ab [Presence] in Serum or Plasma by Immunoassay HIV 1/2 COMBO WITH REFLEX TO DIFFERENTIATION Lab Routine Supervision of high risk in first trimester Expected: 09/16/2023, Expires: 12/16/2023 [facility] Comment on above: Expected: 09/16/2023 , Expires: 12/16/2023 Start: 09-16-2023 End: 12-16-2023 Protein/Creatinine [Mass Ratio] in Urine PROTEIN / CREATININE RATIO Lab Routine Pre-existing type 2 diabetes mellitus during in first trimester Expected: 09/16/2023, Expires: 12/16/2023 [facility] Comment on above: Expected: 09/16/2023 , Expires: 12/16/2023 Start: 09-16-2023 End: 12-16-2023 RUBELLA IGG ANTIBODY RUBELLA IGG ANTIBODY Lab Routine Supervision of high risk in first trimester Expected: 09/16/2023, Expires: 12/16/2023 [facility] Comment on above: Expected: 09/16/2023 , Expires: 12/16/2023 Start: 09-16-2023 End: 12-16-2023 SYPHILIS TOTAL W/REFLEX SYPHILIS TOTAL W/REFLEX Lab Routine Supervision of high risk in first trimester Expected: 09/16/2023, Expires: 12/16/2023 [facility] Comment on above: Expected: 09/16/2023 , Expires: 12/16/2023 Start: 09-16-2023 End: 12-16-2023 Thyrotropin [Units/volume] in Serum or Plasma THYROID STIMULATING [facility] Lab Routine Pre-existing type 2 diabetes mellitus during in first trimester Expected: 09/16/2023, Expires: 12/16/2023 [facility] Comment on above: Expected: 09/16/2023 , Expires: 12/16/2023 Start: 09-16-2023 End: 12-16-2023 TYPE + SCREEN TYPE + SCREEN Blood Bank Routine Supervision of high risk in first trimester Expected: 09/16/2023, Expires: 12/16/2023 [facility] Comment on above: Expected: 09/16/2023 , Expires: 12/16/2023 Start: 09-10-2023 Hemoglobin A1c measurement HbA1C [facility] Start: 09-10-2023 Hemoglobin A1c/Hemoglobin.total in Blood HbA1C [facility] Start: 08-31-2023 ANNUAL PCP TEAM CHRONIC DISEASE VISIT ANNUAL PCP TEAM CHRONIC DISEASE VISIT [facility] Start: 08-31-2023 Urine microalbumin profile [facility] Comment on above: Postponed from 01/04 (Declined at this time) Start: 07-14-2023 End: 10-13-2023 ALBUMIN/CREAT RATIO RND UR ALBUMIN/CREAT RATIO RND UR Lab Routine Type 2 diabetes mellitus complicating , antepartum, first trimester Expected: 07/14/2023 (Approximate), Expires: 10/13/2023 [facility] Work Phone: Comment on above: Expected: 07/14/2023 (Approximate), Expires: 10/13/2023 Start: 07-14-2023 End: 10-13-2023 Comprehensive metabolic 2000 panel - Serum or Plasma COMP METABOLIC PANEL Lab Routine Type 2 diabetes mellitus complicating , antepartum, first trimester Expected: 07/14/2023 (Approximate), Expires: 10/13/2023 [facility] Work Phone: Comment on above: Expected: 07/14/2023 (Approximate), Expires: 10/13/2023 Start: 07-14-2023 End: 10-13-2023 Hemoglobin A1c in Blood HGB A1C Lab Routine Type 2 diabetes mellitus complicating , antepartum, first trimester Expected: 07/14/2023 (Approximate), Expires: 10/13/2023 [facility] Work Phone: Comment on above: Expected: 07/14/2023 (Approximate), Expires: 10/13/2023 Start: 07-14-2023 End: 10-13-2023 Lipid 1996 panel - Serum or Plasma LIPID PANEL BASIC Lab Routine Type 2 diabetes mellitus complicating , antepartum, first trimester Expected: 07/14/2023 (Approximate), Expires: 10/13/2023 [facility] Work Phone: Comment on above: Expected: 07/14/2023 (Approximate), Expires: 10/13/2023 Start: 07-14-2023 End: 10-13-2023 Thyrotropin [Units/volume] in Serum or Plasma TSH BLD Lab Routine Type 2 diabetes mellitus complicating , antepartum, first trimester Expected: 07/14/2023 (Approximate), Expires: 10/13/2023 [facility] Work Phone: Comment on above: Expected: 07/14/2023 (Approximate), Expires: 10/13/2023 Start: 05-06-2023 ANNUAL PCP TEAM CHRONIC DISEASE VISIT ANNUAL PCP TEAM CHRONIC DISEASE VISIT [facility] Start: 04-09-2023 End: 07-09-2023 ALPHA FETOPRO MATERNAL ALPHA FETOPRO MATERNAL Lab Routine Multigravida of advanced maternal age in second trimester 15 weeks gestation of Expected: 04/09/2023, Expires: 07/09/2023 [facility] Work Phone: Comment on above: Expected: 04/09/2023 , Expires: 07/09/2023 Start: 04-09-2023 End: 04-09-2024 OBSTETRIC ULTRASOUND WHI OBSTETRIC ULTRASOUND WHI Anc Imaging Routine Multigravida of advanced maternal age in second trimester 15 weeks gestation of Expected: 04/09/2023, Expires: 04/09/2024 [facility] Work Phone: Comment on above: Expected: 04/09/2023 , Expires: 04/09/2024 Start: 03-11-2023 End: 06-10-2023 Chromosome 21 trisomy [Presence] in Blood or Tissue by Cytogenetics [facility] Work Phone: Comment on above: Expected: 03/11/2023 , Expires: 06/10/2023 Start: 03-11-2023 End: 06-10-2023 HEMOGLOBIN EVALUATION CASCADE HEMOGLOBIN EVALUATION CASCADE Lab Routine Encounter for supervision of high risk in first trimester, antepartum Expected: 03/11/2023, Expires: 06/10/2023 [facility] Work Phone: Comment on above: Expected: 03/11/2023 , Expires: 06/10/2023 Start: 03-11-2023 End: 06-10-2023 Hepatitis B virus surface Ag [Presence] in Serum [facility] Work Phone: Comment on above: Expected: 03/11/2023 , Expires: 06/10/2023 Start: 03-11-2023 End: 06-10-2023 Hepatitis C virus Ab [Presence] in Serum [facility] Work Phone: Comment on above: Expected: 03/11/2023 , Expires: 06/10/2023 Start: 03-11-2023 End: 06-10-2023 HIV 1+2 Ab [Presence] in Serum or Plasma by Immunoassay [facility] Work Phone: Comment on above: Expected: 03/11/2023 , Expires: 06/10/2023 Start: 03-11-2023 End: 03-11-2024 NUCHAL TRANSLUCENCY WHI NUCHAL TRANSLUCENCY WHI Anc Imaging Routine Encounter for supervision of high risk in first trimester, antepartum Expected: 03/11/2023, Expires: 03/11/2024 [facility] Work Phone: Comment on above: Expected: 03/11/2023 , Expires: 03/11/2024 Start: 03-11-2023 End: 03-11-2024 OBSTETRIC ULTRASOUND WHI OBSTETRIC ULTRASOUND WHI Anc Imaging Routine Encounter for supervision of high risk in first trimester, antepartum Expected: 03/11/2023, Expires: 03/11/2024 [facility] Work Phone: Comment on above: Expected: 03/11/2023 , Expires: 03/11/2024 Start: 03-11-2023 End: 06-10-2023 Protein/Creatinine [Mass Ratio] in Urine PROTEIN CREATININE RATIO Lab Routine Gestational diabetes mellitus in , controlled by oral hypoglycemic drugs Obesity affecting in first trimester, unspecified obesity type Expected: 03/11/2023, Expires: 06/10/2023 [facility] Work Phone: Comment on above: Expected: 03/11/2023 , Expires: 06/10/2023 Start: 03-11-2023 End: 06-10-2023 RUBELLA IGG AB [facility] Work Phone: Comment on above: Expected: 03/11/2023 , Expires: 06/10/2023 Start: 03-11-2023 End: 06-10-2023 SYPHILIS TOTAL W/REFLEX [facility] Work Phone: Comment on above: Expected: 03/11/2023 , Expires: 06/10/2023 Start: 03-11-2023 End: 06-10-2023 TYPE + SCREEN [facility] Work Phone: Comment on above: Expected: 03/11/2023 , Expires: 06/10/2023 Start: 03-01-2023 Hemoglobin A1c/Hemoglobin.total in Blood HBA1C [facility] Start: 02-07-2023 ANNUAL PCP TEAM CHRONIC DISEASE VISIT ANNUAL PCP TEAM CHRONIC DISEASE VISIT [facility] Start: 02-07-2023 COVID-19 VACCINE (#1) COVID-19 VACCI NE (#1) [facility] Comment on above: Postponed from 07/07 (Declined at this time) Start: 02-01-2023 Adult depression screening assessment DEPRESSION SCREENING [facility] Start: 01-23-2023 Covid-19 Vaccine ( season) Covid-19 Vaccine ( season) [facility] Start: 01-23-2023 Influenza vaccination C [facility] Start: 11-29-2022 Hepatitis B screening URINE AL BUMIN:CREATININE RATIO [facility] Start: 11-29-2022 Hepatitis B surface antibody level LDL CHOLESTEROL [facility] Start: 11-21-2022 Influenza vaccination INFLUENZA (#1) [facility] Comment on above: Postponed from 01/23 (Declined at this time) Start: 11-18-2022 3 comp foot exam completed DIABETIC FOOT EXAM [facility] Start: 11-18-2022 Adult depression screening assessment DEPRESSION SCREENING [facility] Start: 11-18-2022 Diabetic foot examination Diabetic Foot Exam [facility] Start: 06-25-2022 3 comp foot exam completed DIABETIC FOOT EXAM [facility] Start: 06-25-2022 ANNUAL PCP TEAM CHRONIC DISEASE VISIT ANNUAL PCP TEAM CHRONIC DISEASE VISIT [facility] Start: 06-01-2022 Hemoglobin A1c/Hemoglobin.total in Blood HBA1C [facility] Start: 05-26-2022 HPV TESTING HPV TESTING [facility] Comment on above: Postponed from 01/04 (Postponed To Appropriate Date) Start: 05-26-2022 PAP TESTING PAP TESTING [facility] Comment on above: Postponed from 01/04 (Postponed To Appropriate Date) Start: 05-26-2022 Urine microalbumin profile DTAP,TDAP,TD (1 - Tdap) [facility] Comment on above: Postponed from 01/04 (Insurance Coverage) Start: 05-25-2022 DEPRESSION ASSESSMENT DEPRESSION ASS ESSMENT [facility] Start: 04-26-2022 ANNUAL PCP TEAM CHRONIC DISEASE VISIT ANNUAL PCP TEAM CHRONIC DISEASE VISIT [facility] Start: 01-23-2022 Influenza vaccination C [facility] Start: 01-10-2022 End: 03-12-2022 ALBUMIN/CREAT RATIO RND UR ALBUMIN/CREAT RATIO RND UR Lab Routine 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 alf insulin use (HCC) Expected: 01/10/2022, Expires: 03/12/2022 [facility] Work Phone: Comment on above: Expected: 01/10/2022 , Expires: 03/12/2022 Start: 01-10-2022 Hepatitis B screening URINE AL BUMIN:CREATININE RATIO [facility] Start: 01-03-2022 COVID-19 VACCINE (#1) COVID-19 VACCI NE (#1) [facility] Comment on above: Postponed from 01/04 (Declined at this time) Postponed from 07/07 (Declined at this time) Start: 01-03-2022 COVID-19 VACCINE (1) COVID-19 VACCIN E (1) [facility] Comment on above: Postponed from 01/04 (Declined at this time) Start: 01-03-2022 Hepatitis C antibody , confirmatory test DILATED RETINAL EXAM [facility] Start: 12-23-2021 Hemoglobin A1c/Hemoglobin.total in Blood HBA1C [facility] Start: 11-21-2021 Influenza vaccination INFLUENZA (#1) [facility] Comment on above: Postponed from 01/23 (Declined at this time) Start: 11-18-2021 End: 01-18-2022 ALBUMIN/CREAT RATIO RND UR ALBUMIN/CREAT RATIO RND UR Lab Routine 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) Expected: 11/18/2021, Expires: 01/18/2022 [facility] Work Phone: Comment on above: Expected: 11/18/2021 , Expires: 01/18/2022 Start: 11-18-2021 End: 01-18-2022 Comprehensive metabolic 2000 panel - Serum or Plasma COMP METABOLIC PANEL Lab Routine 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 alf insulin use (HCC) Expected: 11/18/2021, Expires: 01/18/2022 [facility] Work Phone: Comment on above: Expected: 11/18/2021 , Expires: 01/18/2022 Start: 11-18-2021 End: 01-18-2022 Hemoglobin A1c in Blood HGB A1C Lab Routine 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) Expected: 11/18/2021, Expires: 01/18/2022 [facility] Work Phone: Comment on above: Expected: 11/18/2021 , Expires: 01/18/2022 Start: 11-18-2021 End: 01-18-2022 Lipid 1996 panel - Serum or Plasma LIPID PANEL BASIC Lab Routine 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 alf insulin use (HCC) Expected: 11/18/2021, Expires: 01/18/2022 [facility] Work Phone: Comment on above: Expected: 11/18/2021 , Expires: 01/18/2022 Start: 10-03-2021 End: 12-03-2021 Basic metabolic 2000 panel - Serum or Plasma BASIC METABOLIC PNL Lab Routine 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 alf insulin use (HCC) Expected: 10/03/2021, Expires: 12/03/2021 [facility] Work Phone: Comment on above: Expected: 10/03/2021 , Expires: 12/03/2021 Start: 10-03-2021 End: 12-03-2021 Hemoglobin A1c/Hemoglobin.total in Blood HGB A1C Lab Routine 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 alf insulin use (HCC) Expected: 10/03/2021, Expires: 12/03/2021 [facility] Work Phone: Comment on above: Expected: 10/03/2021 , Expires: 12/03/2021 Start: 10-03-2021 End: 12-03-2021 LIPID PANEL BASIC LIPID PANEL BASIC Lab Routine 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 alf insulin use (HCC) Expected: 10/03/2021, Expires: 12/03/2021 [facility] Work Phone: Comment on above: Expected: 10/03/2021 , Expires: 12/03/2021 Start: 10-02-2021 Adult depression screening assessment DEPRESSION SCREENING [facility] Start: 10-02-2021 Hepatitis B surface antibody level LDL CHOLESTEROL [facility] Start: 10-02-2021 PAP TESTING PAP TESTING [facility] Comment on above: Postponed from 01/04 (Postponed To Appropriate Date) Start: 05-25-2021 DEPRESSION ASSESSMENT DEPRESSION ASS ESSMENT [facility] Start: 01-04-2018 HPV TESTING HPV TESTING [facility] Start: 01-04-2018 Screening for malignant neoplasm of cervix HPV/Cotest [facility] Start: 01-04-2015 HPV Vaccine (1 - 3-dose SCDM series) HPV Vaccine (1 - 3-dose SCDM series) [facility] Start: 01-04-2009 PAP TESTING PAP TESTING [facility] Start: 01-04-2007 DTaP/Tdap/Td Vaccine s (1 - Tdap) DTaP/Tdap/Td Vaccines (1 - Tdap) [facility] Start: 01-04-2007 HEPATITIS B (1 of 3 - Risk 3-dose series) HEPATITIS B (1 of 3 - Risk 3-dose series) [facility] Start: 01-04-2007 Hepatitis B Vaccine (1 of 3 - 19+ 3-dose series) Hepatitis B Vaccine (1 of 3 - 19+ 3-dose series) [facility] Start: 01-04-2007 Hepatitis B Vaccines (1 of 3 - 19+ 3-dose series) Hepatitis B Vaccines (1 of 3 - 19+ 3-dose series) [facility] Start: 01-04-2007 Pneumococcal vaccination Pneumococcal Vaccine (1 of 2 - PCV) [facility] Start: 01-04-2007 Urine microalbumin profile [facility] Start: 01-04-2006 Hepatitis C screening Hepatitis C Sc reening [facility] Start: 01-04-2006 Spirometry Spirometry [facility] Start: 2004 ONE PNEUMOVAX PRIOR TO AGE 65 ONE PNEUMOVAX PRIOR TO AGE 65 [facility] Start: 01-04-2001 Varicella vaccination Varicell a Vaccines (1 of 2 - 13+ 2-dose series) [facility] Start: 01-04-1998 Diabetic foot examination Diabetes: Foot Exam [facility] Start: 01-04-1998 Glaucoma screening Diabetes: R etinopathy Screening [facility] Start: 01-04-1998 Preventive dental service Diabetes: Dental Exam [facility] Start: 01-04-1994 PNEUMOCOCCAL (1 - PCV) PNEUMOCOCCAL (1 - PCV) [facility] Start: 01-04-1994 Pneumococcal vaccination [facility] Start: 01-04-1994 Pneumococcal Vaccine : Pediatrics (0 to 5 Years) and At-Risk Patients (6 to 64 Years) (1 of 2 - PCV) Pneumococcal Vaccine: Pediatrics (0 to 5 Years) and At-Risk Patients (6 to 64 Years) (1 of 2 - PCV) [facility] Start: 01-04-1989 MMR Vaccines (1 of 1 - Standard series) MMR Vaccines (1 of 1 - Standard series) [facility] Start: 1988 COVID-19 VACCINE (#1) COVID-19 VACCI NE (#1) [facility] Start: 1988 HEPATITIS B (1 of 3 - 3-dose series) HEPATITIS B (1 of 3 - 3-dose series) [facility] Start: 1988 Hepatitis B Vaccine (1 of 3 - 3-dose series) Hepatitis B Vaccine (1 of 3 - 3-dose series) [facility] Start: 1988 HIV screening HIV Screening [facility] Start: 1988 Lipid panel Lipid Panel [facility] Bacteria identified in Urine by Culture URINE CULTURE Microbiology Routine Encounter for supervision of high risk in first trimester, antepartum 03/11/2023 4:15 PM EDT [facility] Work Phone: Bacteria identified in Urine by Culture URINE CULTURE Microbiology Routine Supervision of high risk in first trimester 09/16/2023 10:36 AM EDT [facility] Bacteria identified in Urine by Culture URINE CULTURE Microbiology Routine 16 weeks gestation of Multigravida of advanced maternal age in second trimester 11/27/2023 1:43 PM EDT [facility] Bacteria identified in Urine by Culture URINE CULTURE Microbiology Routine 19 weeks gestation of Multigravida of advanced maternal age in second trimester 12/21/2023 11:05 AM EDT [facility] Work Phone: BACTERIAL VAGINOSIS NAAT BACTERIAL VAGINOSIS NAAT Lab Routine Pre-existing type 2 diabetes mellitus during in first trimester Multigravida of advanced maternal age in first trimester 10 weeks gestation of Supervision of other high risk pregnancies, first trimester Obesity affecting in first trimester, unspecified obesity type 10/14/2023 11:48 AM EDT [facility] BACTERIAL VAGINOSIS NAAT BACTERIAL VAGINOSIS NAAT Lab Routine Vaginal discharge 01/07/2024 9:45 AM EDT [facility] ELI/TRICHOMONAS NAAT ELI/TRICHOMONAS NAAT Lab Routine Vaginal discharge 01/07/2024 9:45 AM EDT [facility] Chlamydia trachomatis+Neisseria gonorrhoeae DNA [Presence] in Unspecified specimen by MERRY with probe detection GONORRHEA/CHLAMYDIA NAAT Lab Routine Vaginal discharge 01/07/2024 9:45 AM EDT [facility] Hepb vaccine adult 3 dose schedule for im use HEPATITIS B VACCINE, ADULT AGE 20+, IM Immunization/Injection Routine Encounter for immunization 1 Occurrences starting 11/18/2021 [facility] Work Phone: Comment on above: 1 Occurrences startkodi selby 11/18/2021 End: 06-14-2024 OBSTETRIC ULTRASOUND WHI OBSTETRIC ULTRASOUND WHI Anc Imaging Routine AMA (advanced maternal age) multigravida 35+, second trimester Supervision of high risk in second trimester Pre-existing type 2 diabetes mellitus in in second trimester Once per week for 8 Occurrences starting 02/15/2024 until 06/14/2024 [facility] Work Phone: Comment on above: Once per week for 8 Occurrences starting 02/15/2024 until 06/14/2024 PAP TEST PAP TEST Lab Rigo pack Cervical cancer screening 03/11/2023 4:23 PM EDT [facility] Work Phone: Pneumococcal vaccination PNEUMOCOCCAL VACCINE (PREVNAR 20) Immunization/Injection Routine Encounter for immunization 1 Occurrences starting 11/18/2021 [facility] Work Phone: Comment on above: 1 Occurrences startkodi selby 11/18/2021 PT PLAN OF CARE CERTIFICATION PT PLAN OF CARE CERTIFICATION Procedures Routine Acute right-sided low back pain without sciatica Ordered: 01/06/2022 [facility] Comment on above: Ordered: 01/06/2022 End: 01-29-2023 Radex spine lumbosacral 2/3 views XR LUMBAR GENERAL 3V AP/LAT/L5-S1 Radiology Routine Acute right-sided low back pain without sciatica 1 Occurrences starting 12/30/2021 until 01/29/2023 [facility] Work Phone: Comment on above: 1 Occurrences starti ng 12/30/2021 until 01/29/2023 End: 09-04-2025 SPIROMETRY - BASELINE AND POST DILATOR SPIROMETRY - BASELINE AND POST DILATOR PFT Routine Asthma during 1 Occurrences starting 08/05/2024 until 09/04/2025 [facility] Work Phone: Comment on above: 1 Occurrences starti ng 08/05/2024 until 09/04/2025 End: 02-20-2024 Tissue exam [facility] Work Phone: Comment on above: Once (Lab) for 1 Occ urrences starting 02/20/2024 until 02/20/2024, 1 completed TRICHOMONAS VAGINALI S NAAT TRICHOMONAS VAGINALIS NAAT Lab Routine Pre-existing type 2 diabetes mellitus during in first trimester Multigravida of advanced maternal age in first trimester 10 weeks gestation of Supervision of other high risk pregnancies, first trimester Obesity affecting in first trimester, unspecified obesity type 10/14/2023 11:48 AM EDT [facility] Immunizations Immunization Date Immunization Notes Care Provider Akilah cruz 05-25-2016 influenza, seasonal, injectable, preservative free Vasu Orozco [facility] Work Phone: [facility] Work Phone: 05-25-2016 influenza virus vaccine, unspecified formulation Junior Jeong MD Work Phone: [facility] NEGATED: Highlighted row has not occurred!02-21-2024 measles, mumps and rubella virus vaccine Ramirez Hammonds DO Work Phone: [employer] Comment on above: Deferred: No longer needed NEGATED: Highlighted row has not occurred!02-20-2024 tetanus toxoid, reduced diphtheria toxoid, and acellular pertussis vaccine, adsorbed Ramirez Hammonds DO Work Phone: [employer] Comment on above: Deferred: Patient Re fused NEGATED: Highlighted row has not occurred!02-16-2024 influenza, injectable, madin rene canine kidney, preservative free Ramirez Hammonds DO Work Phone: [employer] Comment on above: Deferred: Patient Re fused - pt refused Payers Date Payer Category Payer Self-pay 2022 Medicaid [id number] 2019 Medicaid [employer] [id number] 2019-Present [phone] [address] [place] [address] Medicaid [id number] 2019 Medicaid [id number] 1988 Unknown [id number] 1988 Unknown [id number] 1988 Unknown [id number] 1988 Unknown [id number] 1988 Unknown [id number] Unknown [id number] Unknown [id number] Social History Date Type Detail Facility Start: 10-02-2020 End: 03-31-2024 Tobacco smoking status NHIS Smokes tobacco daily [facility] Work Phone: Start: 10-02-2020 End: 02-15-2024 Cigarettes smoked current (pack per day) - Reported 0.5 [facility] Start: 10-02-2020 End: 03-31-2024 Tobacco use and exposure Smokeless tobacco non-user [facility] Work Phone: Start: 06-25-2021 End: 09-20-2024 Alcohol intake Ex-drinker (finding) [facility] Start: 01-01-2021 End: 05-05-2022 History SDOH Alcohol Frequency 1 [facility] Start: 01-01-2021 History SDOH Alcohol Std Drinks 98 [facility] Start: 01-01-2021 End: 05-05-2022 History SDOH Social Connections Phone 5 [facility] Start: 01-01-2021 End: 05-05-2022 History SDOH Social Connections Meetings 2 [facility] Start: 01-01-2021 End: 05-05-2022 History SDOH Social Connections Living 3 [facility] Start: 01-01-2021 End: 05-05-2022 Education 15 [facility] Start: 1990 Sex Assigned At Not on file [facility] Start: 07-31-2021 End: 02-07-2022 Exposure to SARS-CoV-2 (event) Not sure [facility] History of tobacco use Cigarette Smoker C [facility] Work Phone: Start: 12-21-2021 End: 12-31-2021 Exposure to SARS-CoV-2 (event) Unable to assess [facility] Work Phone: Start: 05-05-2022 History SDOH Alcohol Std Drinks 0 [facility] Start: 05-05-2022 History SDOH Physical Activity DPW 7 [facility] Start: 05-04-2022 End: 02-15-2024 Social connection and isolation panel [facility] Do you belong to any clubs or organizations such as alevism groups, unions, fraternal or athletic groups, or school groups? No [facility] Are you now , , , , never or living with a partner? [facility] How often to you hav e a drink containing alcohol? Never [facility] Start: 09-06-2015 How many standard drinks containing alcohol do you have on a typical day? Patient does not drink [facility] Do you feel stress - tense, restless, nervous, or anxious, or unable to sleep at night because your mind is troubled all the time - these days [OSQ] To some extent [facility] (I/We) worried vinita er (my/our) food would run out before (I/we) got money to buy more. Never true [facility] Start: 01-04-2023 [facility] Start: 1990 Sex Assigned At Female [facility] Start: 09-08-2023 Gender identity Identifies as female gender (finding) [facility] Start: 09-08-2023 Sexual orientation Heterosexual (finding) [facility] Are you now , , , , never or living with a partner? [facility] How hard is it for y ou to pay for the very basics like food, housing, medical care, and heating Not very hard [facility] Do you feel stress - tense, restless, nervous, or anxious, or unable to sleep at night because your mind is troubled all the time - these days [OSQ] Only a little [facility] Medical Equipment Procedure Code Equipment Code Equipment Original Text Equipment Identifier Dates [id number], [id number], [id number], [id number], [id number] Start: 11-29-2020 End: 03-31-2024 Comment on above: Test blood sugar(s) 3 times daily. Dx: Type 2 DM - Controlled E11.9 Insulin: Yes Use to inject insuli n twice daily as directed. Use as instructed 4 times daily Use to inject insuli n up to 4 times per day. Goals Date Patient Goal Desired Activity /State Personal health goal Personal health goal Functional Status Date Assessment Result Facility 10-30-2023 Are you deaf, or do you have serious difficulty hearing No 10/30/2023 3:17 PM EDT Jolly Murphy RN No [facility] 10-30-2023 Are you blind, or do you have serious difficulty seeing, even when wearing glasses No 10/30/2023 3:17 PM EDT Jolly Murphy, RN No [facility] 10-30-2023 Do you have serious difficulty walking or climbing stairs No 10/30/2023 3:17 PM EDT Jolly Murphy, RN No [facility] 10-30-2023 Do you have difficul ty dressing or bathing No 10/30/2023 3:17 PM EDT Jolly Murphy, RN No [facility] 10-30-2023 Because of a physica l, mental, or emotional condition, do you have difficulty doing errands alone such as visiting a physician's office or shopping No 10/30/2023 3:17 PM EDT Jolly Murphy RN No [facility] Mental Status Date Assessment Result Facility 10-30-2023 Because of a physica l, mental, or emotional condition, do you have serious difficulty concentrating, remembering, or making decisions No 10/30/2023 3:17 PM EDT Jolly Murphy RN No [facility] Clinical Notes 08-22-2021 to 03-31-2025 Telephone Encounter - Arlene Gonzalez - 10/24/2024 11:38 AM EDTTelephone Encounter - Arlene Gonzalez - 10/24/2024 11:38 AM EDTTelephone Encounter - Arlene Gonzalez - 10/24/2024 11:38 AM EDT Note Date & Type Note Facility 03-31-2025 Note HNO ID: [id number] Author: JUNIOR JEONG MD Service: ? Author Type: Physician Type: Progress Notes Filed: 03/31/2025 02:22 Note Text: lwbs [facility] 03-03-2025 Note HNO ID: [id number] Author: ?, ?, ? Service: ? Author Type: ? Type: Progress Notes Filed: 03/03/2025 15:32 Note Text: Spoke with patient, scheduled 06/02/2025 @ 9:40 am (virtual appointment) [facility] 03-01-2025 Note HNO ID: [id number] Author: ADEEL RAMIREZ, DO Service: ? Author Type: Physician Type: Progress Notes Filed: 03/01/2025 15:08 Note Text: Reason for Consultation: f/u- uncontrolled type 2 diabetes mellitus. Referring Physician: Vasu Gaxiola APRN, CNP My final recommendations will be communicated back to the requesting physician by way of shared Medical record or letter via US mail. This Team Access Model visit is a virtual encounter. It required patient-provider interaction for the medical decision making as documented below. I have communicated my name and active licensure. The patient's identity and physical location were verified at the time of this visit. Either the patient or their legal branch service representative has been informed of the risks and benefits of -- and alternatives to -- treatment through a remote evaluation and consents to proceed with the evaluation remotely. HISTORY OF PRESENT ILLNESS Ms. Avila is a 35 year old F here for f/u regarding uncontrolled type 2 diabetes mellitus. Her last visit here was 10/08/24 (post f/u)- she delivered a 2lbs 14oz M at 28 weeks ( labor)- she delivered at [facility], son is in [facility]. She delivered 02/20/24. I followed her during this regarding type 2 diabetes antepartum. Pt with GDM in all three previous pregnancies. She was initially diagnosed with diabetes in 2016- after delivery of third child after post GTT. Required insulin during third (as well as glyburide) No known microvascular or macrovascular complications - states she follows with ophthalmology annually - saw them during her recent - no DR. Prior to this she was taking Metformin ER 500 mg two tabs twice/day + Trulicity prior to the - discontinued Trulicity just prior to the . Insulin was initiated at her first visit wit me and was adjusted weekly in between visits- most recently on 02/09- regimen prior to delivery was as follows: NPH 25 units at bedtime and Humalog 15 units prior to each meal + additional 5 units of Humalog with any "higher carb" meals (abelino with * as you are doing Metformin ER 500 mg two tabs twice/day with meals At last visit here, basal/bolus insulin was restarted - however she declined doing this because she was concerned about nursing and medication use. She is not taking any pharmacologic therapy for diabetes. Known complications include: none Exacerbating factors include: insulin resistance Current diabetes regimen is as follows: Metformin ER 500 mg two tabs twice/day She is checking her blood glucose 4 times daily (+ sensor) This continuous glucose monitoring (sensor) data can be found in the procedure note. Sensor average BG is 350 +/- 42 mg/dL. CGM Report Interpretation: 1. Nocturnal glucose control: Uncontrolled glucose NOT previously detected: Yes If yes: Hyperglycemia detected Notes: markedly elevated overnight BG 2. Post prandial glucose excursions: Uncontrolled glucose NOT previously detected: Yes If yes: Hyperglycemia detected Notes: post meal BG elevated. 3. Hypoglycemia incidence: Uncontrolled glucose NOT previously detected: No Notes: n/a 4. Other (e.g., exercise/activity): n/a She is nursing still- but weaning. States she is now willing to take the insulin. Hypoglycemia frequency: infrequent if at all Hypoglycemia awareness: Yes Regarding symptoms of hyperglycemia, she is not experiencing any symptoms such as polyuria, polydipsia, nocturia or rapid weight loss or blurry vision, No complaints/concerns at this time- PAST MEDICAL HISTORY Diagnosis Date AMA (advanced maternal age) multigravida 35+, second trimester ([facility]) 03/11/2023 Plans for NT scan and [id number]. Reviewed risks of AMA. Taking ASA 81 mg. Anxiety state Atrial fibrillation (HCC) Cardiac arrest ([facility]) With subsequent A. fib after initiation of anesthesia June 2016 with tubal, converted with diltiazem after 11 hours, she follows with cardiology Constipation during in first trimester ([facility]) 09/16/2023 Reviewed Colace and increased hydration. Diabetes type 2, controlled ([facility]) 2015 GERD (gastroesophageal reflux disease) History of depression Mixed hyperlipidemia Morbid obesity ([facility]) Tobacco dependence PAST SURGICAL HISTORY Procedure Laterality Date CHOLECYSTECTOMY DANDC, DIAG AND/OR THERAPEUTIC 04/16/2023 retained placenta after 16 week demise/PPROM delivery DILATION AND CURETTAGE DXAND/THER NONOBSTETRIC 2015 multiple procedures LIGATE FALLOPIAN TUBE Pt reported 02/20/2024 TONSILLECTOMY AND ADENOIDECTOMY FAMILY HISTORY Problem Relation Age of Onset Hypertension Mother No Known Problems Father No Known Problems Sister No Known Problems Brother Cancer Maternal Grandmother Sinus Diabetes Paternal Grandmother Heart Failure Paternal Grandmother Heart Failure Paternal Grandfather Social History Tobacco Use Smoking sta (more content not included)... [facility] 03-01-2025 Note HNO ID: [id number] Author: HAYLEY MÉNDEZ MA Service: ? Author Type: Termite Control Technician Type: Procedures Filed: 03/01/2025 15:07 Note Text: [facility] 10-24-2024 Telephone encounter Note Left voicemail for patient to call [phone] to schedule with TIE UP WORKER and keep scheduled appointment with Dr. Ramirez. [facility] 10-24-2024 Telephone encounter Note ----- Message from Adeel Ramirez DO sent at 10/24/2024 10:05 AM EDT ----- Arlene- can we try to get her in with next available TIE UP WORKER (keep my appointment as well)- thanks! ALISHA [facility] 10-24-2024 Miscellaneous Notes Left voicemail for patient to call [phone] to schedule with TIE UP WORKER and keep scheduled appointment with Dr. Ramirez. ----- Message from Adeel Ramirez DO sent at 10/24/2024 10:05 AM EDT ----- Arlene- can we try to get her in with next available TIE UP WORKER (keep my appointment as well)- thanks! ALISHA documented in this encounter [facility] 10-10-2024 Telephone encounter Note That is fine- she could take insulin which would be perfectly safe to take while nursing- but if she wants to wait until february I will see her then ALISHA [facility] 10-10-2024 Miscellaneous Notes That is fine- she could take insulin which would be perfectly safe to take while nursing- but if she wants to wait until february I will see her then KB Spoke with patient, advised that Dr. Ramirez would not like to wait until February for patient to be seen. Patient declined and said she will not taken any medication while breast feeding, she said she is adamant about this and wants to see Dr. Ramirez in early February when the baby is done breast feeding. Patient advised to call the office if she changes her mind and wants to be seen sooner. Patient scheduled 03/01/2025 @ 2:00 pm (virtual appointment) documented in this encounter [facility] 10-10-2024 Telephone encounter Note Spoke with patient, advised that Dr. Ramirez would not like to wait until February for patient to be seen. Patient declined and said she will not taken any medication while breast feeding, she said she is adamant about this and wants to see Dr. Ramirez in early February when the baby is done breast feeding. Patient advised to call the office if she changes her mind and wants to be seen sooner. Patient scheduled 03/01/2025 @ 2:00 pm (virtual appointment) [facility] 10-08-2024 History of Present illness Narrative No show documented in this encounter [facility] 10-08-2024 Note HNO ID: [id number] Author: ADEEL RAMIREZ DO Service: ? Author Type: Physician Type: Progress Notes Filed: 10/25/2024 10:00 Note Text: No show [facility] 09-22-2024 Progress note Formatting of t his note might be different from the original. Normal spirometry, negative bronchodilator response [facility] 09-22-2024 Miscellaneous Notes Normal spirometry, negative bronchodilator response documented in this encounter [facility] 08-19-2024 Note Discharge Instructio ns Discharge Summary [address] [address] [id number] 08/19/2024 Patient: CHARMAINE AVILA Sex: Female : 1990 Age: 34y Thank you for visiting [facility]. You have been evaluated today by Min Farah D.O. for the following condition(s): Principal Diagnosis Influenza type A (exposure). INSTRUCTIONS Prescription Medications: Tamiflu, patient has metformin at home (500 mg po bid, that she has not been taking). Follow-up with: Kadi Curran DNP, MOVIE PROJECTIONIST, OB GYN-C, [facility], [facility], [facility], Phone: [phone], [address] [address], [place] [address]. (home lots of fluids tamiflu start taking your Metformin Recheck: Kadi Curran, call for apt You are welcomed to return anytime. William FARAH< ER PHYSICIAN< Rosa Amin). You have been given the following additional information: Influenza (Adult) 1 of 5 Discharge Instructions Patient Signature Facility Build Automation Engineer Date/Time General Instructions with ExitWriter [address] [address] [id number] 08/19/2024 Patient: CHARMAINE AVILA Sex: Female : 1990 Age: 34y Thank you for visiting [facility]. You have been evaluated today by Min Farah D.O. for the following condition(s): Principal Diagnosis Influenza type A (exposure). INSTRUCTIONS Prescription Medications: Tamiflu, patient has metformin at home (500 mg po bid, that she has not been taking). Follow-up with: Kadi Curran, INDERJIT, MOVIE PROJECTIONIST, OB GYN-C, [facility], Adult [facility], Family Care, Phone: [phone], [address] [facility] [address] [phone]. (home lots of fluids tamiflu start taking your Metformin Recheck: Kadi Curran, call for apt You are welcomed to return anytime. 2 of 5 Discharge Instructions T H JANE< ER PHYSICIAN< Rosa Amin). ADDITIONAL INFORMATION Influenza (Adult) Influenza is also called the flu. It's a viral illness that affects the air passages of your lungs. It's different from the common cold. The flu can easily be passed from one to person to another. It may be spread through the air by coughing and sneezing. Or it can be spread by touching the sick person and then touching your own eyes, nose, or mouth. 3 of 5 Discharge Instructions The flu starts 1 to 3 days after you are exposed to the flu virus. It may last for 1 to 2 weeks but sometimes people feel tired or fatigued for many weeks afterward. You usually don't need to take antibiotics unless you are at high risk for or have a complication . This might be an ear or sinus infection or pneumonia. Symptoms of the flu may be mild or severe. They can include extreme tiredness (wanting to stay in bed all day), chills, fevers, muscle aches, soreness with eye movement, headache, and a dry, hacking cough. Antiviral medicine for the flu is available by prescription. If you start taking it within 48 hours, it may help reduce how long your symptoms last and how severe they are. Your provider may do a test to find out if you have influenza and which strain you have. Home care Follow these guidelines when caring for yourself at home: Stay away from cigarette smoke, whether yours or other people's. Acetaminophen or ibuprofen will help ease your fever, muscle aches, and headache. Don't give aspirin to anyone younger than 18 who has the flu. This can cause a serious condition called Korey syndrome. Nausea, loose stools, and loss of appetite are common with the flu. Eat light meals. Drink 6 to 8 glasses of liquids every day. Good choices are water, sport drinks, soft drinks without caffeine, juices, tea, and soup. Extra fluids will also help loosen secretions in your nose and lungs. Exwi-smm-vhipckf cold medicines will not make the flu go away faster. But the medicines may help with coughing, sore throat, and congestion in your nose and sinuses. Don't use a decongestant if you have high blood pressure. Stay home until your fever has been gone for at least 24 hours without using medicine to reduce fever. Follow-up care Follow up with your healthcare provider, or as advised, if you are not getting better over the next week. If you are age 65 or older, talk with your provider about getting a pneumococcal vaccine every 5 years. You should also get this vaccine if you have chronic asthma or COPD. All adults should get a flu vaccine every fall. Ask your provider about this. 4 of 5 Discharge Instructions When to seek medical advice Call your healthcare provider right away if you have the flu and any of these occur: Cough with lots of colored mucus (sputum) or blood in your mucus Chest pain, shortness of breath, wheezin (more content not included)... [facility] 08-05-2024 Note HNO ID: [id number] Author: FERCHO PEREZ APRN.SHREDDED FILLER CUTTER OPERATOR Service: ? Author Type: Nurse Specialist Type: Progress Notes Filed: 08/05/2024 15:18 Note Text: Charmaine is a 34-year-old female with a history of type 2 diabetes, anxiety, and asthma, presenting for diabetes management and medication refills. Type 2 Diabetes Mellitus: - Not taking any antidiabetic medications due to concerns about transferring medication effects to her . - Stopped taking Trulicity after a previous loss, which she believes may have been related to the medication. - Not monitoring blood glucose levels at home. - Adhering to a diabetic diet, though occasionally consumes sweets due to cravings while . - Denies polyuria, polydipsia, polyphagia, blurry vision, or neuropathic symptoms. - Last eye exam at [facility] in [place]. - No recent lab work; plans to resume medication management after . Not check home glucose levels with glucometer or CGM. Anxiety: - Taking sertraline PRN, approximately 1-2 times per week for anxiety attacks. - Reports medication is effective within 10-15 minutes. - Avoids regular use due to concerns about transferring medication effects to her infant. - Denies need for counseling; attributes stress to managing two teenagers. Asthma: - Has two inhalers at home; uses them primarily during colds. - Requests refill for inhalers. Medication Refills: - Requests refills for lidocaine patches and allergy medication. - Taking omeprazole daily for reflux and heartburn; requests refill. - Not taking or multivitamins. Tobacco Use: - Smokes approximately half a pack of cigarettes per day. - Uses smoking as a stress relief method. - No current plans to quit smoking. Eyes: (-) blurred vision Neurological: (-) numbness or tingling Skin: (-) foot sores Psychiatric: (+) anxiety GENERAL: NAD, alert and oriented. SKIN: Unremarkable, no rash or skin lesions. HEAD: Normocephalic. EYES: PERRLA, EOMI, conjunctiva clear. EARS: External ears normal, canals clear, TM's normal. NOSE/SINUSES: Nares normal. Septum midline. OROPHARYNX: Lips, mucosa, and tongue normal, good dentition. No oral lesions noted. NECK: Supple, no lymphadenopathy, normal thyroid, no carotid bruits. LUNGS: Clear to auscultation bilaterally, no wheezes/rhonchi/rales. HEART: Regular rate and rhythm, no murmurs. No ectopy. EXTREMITIES: Normal, no deformities, no skin discoloration, no edema. NEURO: Awake, alert and oriented x3, cranial nerves II-XII grossly intact, normal gait, no involuntary motions. SENSATION: Protective sensation intact in bilateral feet. 1. Encounter for immunization (Z23) - Patient declined vaccinations at this time due to concerns about medication transfer to the infant during . 2. Screening for diabetic retinopathy (Z13.5) - Patient follows up with [facility] in [place] for regular eye exams. 3. Asthma during (O99.519) - Patient has two inhalers at home; refilled inhaler prescription at [facility]. 4. Chronic right-sided low back pain with right-sided sciatica (M54.41) - Refilled lidocaine patches at [facility]. 5. Type 2 diabetes mellitus without complication, unspecified whether alf insulin use (HCC) (E11.9) - Patient is not currently taking any diabetes medication or monitoring blood glucose levels at home due to concerns about medication transfer during . - No recent lab work; ordered lab tests to be completed today. - Patient is following a diabetic diet with occasional deviations. - No symptoms of neuropathy; monofilament test performed with normal sensation in feet. - Discussed the importance of medication management and monitoring blood glucose levels. 6. Generalized anxiety disorder (F41.1) - Patient is taking sertraline 1-2 times per week as needed for anxiety attacks. - Discussed the safety of medications during . 7. Gastro-esophageal reflux disease without esophagitis (K21.9) - Patient is taking omeprazole daily with good symptom control. - Refilled omeprazole prescription at [facility]. 8. Nicotine dependence, cigarettes, uncomplicated (F17.210) - Patient is smoking approximately half a pack per day. - Discussed the benefits of smoking cessation. 6 mo follow up Junior Jeong MD To get endocrinology labs today. Has endocrinology follow up appt. Dr. Adeel Ramirez. Medical Decision Making: Problems: Moderate: 2+ stable chronic illnesses Risk: Moderate: Drug management Medical Decision Making Level: 4 - Moderate The patient consented to the use of [employer] software for draft documentation of the visit consistent with [facility]?s Notice of Privacy Practices. [facility] 08-05-2024 History of Present illness Narrative Charmaine is a 34-year-old female with a history of type 2 diabetes, anxiety, and asthma, presenting for diabetes management and medication refills. Type 2 Diabetes Mellitus: - Not taking any antidiabetic medications due to concerns about transferring medication effects to her . - Stopped taking Trulicity after a previous loss, which she believes may have been related to the medication. - Not monitoring blood glucose levels at home. - Adhering to a diabetic diet, though occasionally consumes sweets due to cravings while . - Denies polyuria, polydipsia, polyphagia, blurry vision, or neuropathic symptoms. - Last eye exam at [facility] in [place]. - No recent lab work; plans to resume medication management after . Not check home glucose levels with glucometer or CGM. Anxiety: - Taking sertraline PRN, approximately 1-2 times per week for anxiety attacks. - Reports medication is effective within 10-15 minutes. - Avoids regular use due to concerns about transferring medication effects to her . - Denies need for counseling; attributes stress to managing two teenagers. Asthma: - Has two inhalers at home; uses them primarily during colds. - Requests refill for inhalers. Medication Refills: - Requests refills for lidocaine patches and allergy medication. - Taking omeprazole daily for reflux and heartburn; requests refill. - Not taking or multivitamins. Tobacco Use: - Smokes approximately half a pack of cigarettes per day. - Uses smoking as a stress relief method. - No current plans to quit smoking. Eyes: (-) blurred vision Neurological: (-) numbness or tingling Skin: (-) foot sores Psychiatric: (+) anxiety GENERAL: NAD, alert and oriented. SKIN: Unremarkable, no rash or skin lesions. HEAD: Normocephalic. EYES: PERRLA, EOMI, conjunctiva clear. EARS: External ears normal, canals clear, TM's normal. NOSE/SINUSES: Nares normal. Septum midline. OROPHARYNX: Lips, mucosa, and tongue normal, good dentition. No oral lesions noted. NECK: Supple, no lymphadenopathy, normal thyroid, no carotid bruits. LUNGS: Clear to auscultation bilaterally, no wheezes/rhonchi/rales. HEART: Regular rate and rhythm, no murmurs. No ectopy. EXTREMITIES: Normal, no deformities, no skin discoloration, no edema. NEURO: Awake, alert and oriented x3, cranial nerves II-XII grossly intact, normal gait, no involuntary motions. SENSATION: Protective sensation intact in bilateral feet. 1. Encounter for immunization (Z23) - Patient declined vaccinations at this time due to concerns about medication transfer to the during . 2. Screening for diabetic retinopathy (Z13.5) - Patient follows up with [facility] in [place] for regular eye exams. 3. Asthma during (O99.519) - Patient has two inhalers at home; refilled inhaler prescription at [facility]. 4. Chronic right-sided low back pain with right-sided sciatica (M54.41) - Refilled lidocaine patches at [facility]. 5. Type 2 diabetes mellitus without complication, unspecified whether alf insulin use (HCC) (E11.9) - Patient is not currently taking any diabetes medication or monitoring blood glucose levels at home due to concerns about medication transfer during . - No recent lab work; ordered lab tests to be completed today. - Patient is following a diabetic diet with occasional deviations. - No symptoms of neuropathy; monofilament test performed with normal sensation in feet. - Discussed the importance of medication management and monitoring blood glucose levels. 6. Generalized anxiety disorder (F41.1) - Patient is taking sertraline 1-2 times per week as needed for anxiety attacks. - Discussed the safety of medications during . 7. Gastro-esophageal reflux disease without esophagitis (K21.9) - Patient is taking omeprazole daily with good symptom control. - Refilled omeprazole prescription at [facility]. 8. Nicotine dependence, cigarettes, uncomplicated (F17.210) - Patient is smoking approximately half a pack per day. - Discussed the benefits of smoking cessation. 6 mo follow up Junior Jeong MD To get endocrinology labs today. Has endocrinology follow up appt. Dr. Adeel Ramirez. Medical Decision Making: Problems: Moderate: 2+ stable chronic illnesses Risk: Moderate: Drug management Medical Decision Making Level: 4 - Moderate The patient consented to the use of [employer] software for draft documentation of the visit consistent with [facility] s Notice of Privacy Practices. documented in this encounter [facility] 08-05-2024 Instructions Fercho Perez APRN.CNS - 08/05/2024 11:17 AM EDT - Complete your lab work today before leaving the clinic. - Continue taking Sertraline as needed for anxiety. - Continue taking Omeprazole daily for reflux and heartburn. - Refill your Omeprazole prescription at [facility]. - Refill your lidocaine patches prescription. - Refill your inhaler prescription. - Refill your allergy medication prescription. - Maintain your diabetic diet and monitor your blood sugar levels. - Schedule a breathing test for later this year. - Consider quitting smoking for your health and well-being. documented in this encounter [facility] 07-07-2024 Miscellaneous Notes Spoke with patient, scheduled 10/18/2024 @ 11:20 am (virtual appointment) Please contact and offer pt appointment in August or September (f/u type 2 DM) Thanks ALISHA documented in this encounter [facility] 07-07-2024 Telephone encounter Note Spoke with patient, scheduled 10/18/2024 @ 11:20 am (virtual appointment) [facility] 07-07-2024 Telephone encounter Note Please contact and offer pt appointment in August or September (f/u type 2 DM) Thanks ALISHA [facility] 05-03-2024 Instructions Lizette Pierce - 05/03/2024 9:58 AM EST Diabetes Foot Care Instructions When you have diabetes, proper foot care is very important. Poor foot care may lead to amputation of a foot or leg. As a person with diabetes, you are more vulnerable to foot problems, because diabetes can damage your nerves and reduce blood flow to your feet. Here are some diabetes foot care tips to follow: Wash and Dry Your Feet Daily Use mild soaps Use warm water Pat your skin dry; do not rub. Thoroughly dry your feet. After washing, use lotion on your feet to prevent cracking. Do not put lotion between your toes. Examine Your Feet Each Day Check the tops and bottoms of your feet. Have someone else look at your feet if you cannot see them. Check for dry, cracked skin. Look for blisters, cuts, scratches, or other sores. Check for redness, increased warmth, or tenderness when touching any area of your feet. Check for ingrown toenails, corns, and calluses. If you get a blister or sore from your shoes, do not "pop" it. Apply a bandage and wear a different pair of shoes. Take Care of Your Toenails Cut toenails after bathing, when they are soft. Cut toenails straight across and smooth with a nail file. Avoid cutting into the corners of toes. Do not cut cuticles. If you have neuropathy (or decreased sensation in your feet) a pipe joints supervisor should always cut your toenails. Be Careful When Exercising Walk and exercise in comfortable shoes. Do not exercise when you have open sores on your feet. Protect Your Feet With Shoes and Socks Never go barefoot. Always protect your feet by wearing shoes or hard-soled slippers or footwear. Avoid shoes with high heels and pointed toes. Avoid shoes that expose your toes or heels (such as open-toed shoes or sandals). These types of shoes increase your risk for injury and potential infections. Try on new footwear with the type of socks you usually wear. Do not wear new shoes for more than an hour at a time. Change your socks daily. Look and feel inside your shoes before putting them on to make sure there are no foreign objects or rough areas. Avoid tight socks. Wear natural-fiber socks (cotton, wool, or a cotton-wool blend). Wear special shoes if your health care provider recommends them. Wear shoes/boots that will protect your feet from various weather conditions (cold, moisture, etc.). Make sure your shoes fit properly. If you have neuropathy (nerve damage), you may not notice that your shoes are too tight. Perform the "footwear test" described below. Footwear Test Use this simple test to see if your shoes fit correctly: Stand on a piece of paper. (Make sure you are standing and not sitting, because your foot changes shape when you stand.) Trace the outline of your foot. Trace the outline of your shoe. Compare the tracings: Is the shoe too narrow? Is your foot crammed into the shoe? The shoe should be at least 1/2 inch longer than your longest toe and as wide as your foot. Proper Shoe Choices The following types of shoes are best for people with diabetes Closed toes and heels Leather uppers without a seam inside At least 1/2 inch extra space at the end of your longest toe Inside of shoe should be soft with no rough areas Outer sole should be made of stiff material Shoes should be at least as wide as your feet Tips for Foot Care in Diabetes Don't wait to treat a minor foot problem if you have diabetes. Follow your health care provider's guidelines and first aid guidelines. Report foot injuries and infections to your health care provider immediately. Check water temperature with your elbow, not your foot. Do not use a heating pad on your feet. Do not cross your legs. Do not self-treat your corns, calluses, or other foot problems. Go to your health care provider or pipe joints supervisor to treat these conditions. You have lost your old toenail but new nail appears present. Continue with topical antibiotic for 2-3 days or until scabbed over documented in this encounter [facility] 05-03-2024 Note HNO ID: [id number] Author: LIZETTE PIERCE, ? Service: ? Author Type: Physician Type: Progress Notes Filed: 05/03/2024 10:04 Note Text: Consultation requested by Dr. Ramirez for an opinion regarding loosenig of left great toenail. My final recommendations will be communicated back to the requesting physician by way of shared Medical record or letter to requesting physician via US mail. Initial Podiatric Office Visit: Chief Complaint: This 34 year old female who presents with chief complaint:loosening of left great toenail HPI Patient presents to clinic for evaluation of left great toe States the left hallux nail is lifting off the base. She states she injured her toe in November after falling on gravel. She denies any pain in the toe or toenail. Patient is type two diabetic. Denies any numbness. Last A1c in December was 6.5 Patient currently smokes a 1/2 pack of cigarettes/day. Currently . PAIN EVALUATION No data found in the last 1 encounters. Hemoglobin A1C (%) Date Value 01/08/2024 6.5 10/14/2023 7.1 07/14/2023 6.6 03/11/2023 7.5 08/30/2022 6.6 06/25/2021 7.2 01/10/2021 9.0 10/02/2020 9.9 Hemoglobin A1C (POCT) (%) Date Value 08/30/2022 7.0 PCP: Junior Jeong MD PAST MEDICAL HISTORY Diagnosis Date AMA (advanced maternal age) multigravida 33+, second trimester 03/11/2023 Plans for NT scan and [id number]. Reviewed risks of AMA. Taking ASA 81 mg. Anxiety state Atrial fibrillation (HCC) Cardiac arrest (HCC) With subsequent A. fib after initiation of anesthesia June 2016 with tubal, converted with diltiazem after 11 hours, she follows with cardiology Constipation during in first trimester 09/16/2023 Reviewed Colace and increased hydration. Diabetes type 2, controlled ([facility]) 2015 GERD (gastroesophageal reflux disease) History of depression Mixed hyperlipidemia Morbid obesity ([facility]) Tobacco dependence Current Outpatient Medications Medication Sig sertraline (ZOLOFT) 100 mg tablet Take 1.5 tablets by mouth every afternoon. Blood-Glucose Sensor (DEXCOM G7 SENSOR) stephanie Insert 1 sensor on the back of arm. Replace every 10 days as directed. omeprazole (PRILOSEC) 40 mg capsule Take 1 capsule by mouth once daily. lidocaine (LIDODERM) 5 % APPLY 1 PATCH DIRECTED EVERY 24 HOURS. REMOVE OLD PATCH PRIOR TO PLACING NEW PATCH. LOCATION: LOW BACK ketotifen fumarate (ZADITOR) 0.025 % (0.035 %) ophthalmic solution Use 1 Drop in both eyes two times a day. As needed loratadine (CLARITIN) 10 mg tablet Take 1 tablet by mouth once daily as needed. albuterol HFA (PROVENTIL HFA, VENTOLIN HFA) 90 mcg/actuation inhaler Inhale 2 Puffs as instructed every 4 hours as needed for wheezing/shortness of breath. blood sugar diagnostic ([employer] VERIO TEST STRIPS) test strip Use as instructed 4 times daily (Patient taking differently: Use as instructed 4 times daily For back up use only due to use of Dexcom) lancets ([employer] DELICA LANCETS) 30 gauge Use as instructed 4 times daily (Patient taking differently: Use as instructed 4 times daily For back up use only due to use of Dexcom) Blood-Glucose Meter (BLOOD GLUCOSE MONITORING) monitoring kit One touch. Use as instructed. Please use voucher Bin [id number]; PCN [facility]; Group [id number]; ID NOCHARGEMETR (Patient taking differently: One touch. Use as instructed. Please use voucher Bin [id number]; PCN [facility]; Group [id number]; ID NOCHARGEMETR For back up use only due to use of Dexcom) Insulin [place], Disposable, (PEN NEEDLE) 32 gauge x 5/32" Use to inject insulin up to 4 times per day. (Patient taking differently: Use to inject insulin up to 4 times per day. For back up use only due to use of Dexcom) ondansetron orally disintegrating (ZOFRAN ODT) 4 mg disintegrating tablet Take 1 tablet by mouth every 6 hours as needed for nausea/vomiting. Blood-Glucose Meter,Continuous (DEXCOM G7 HOME THEATRE TECHNICIAN) [facility] Use to test blood sugar as directed. alcohol swabs (ALCOHOL PADS) Apply 1 application to affected area once daily. blood sugar diagnostic (BLOOD GLUCOSE TEST) test strip Test blood sugar(s) 3 times daily. Dx: Type 2 DM - Controlled E11.9 Insulin: Yes (Patient taking differently: Test blood sugar(s) 3 times daily. Dx: Type 2 DM - Controlled E11.9 Insulin: Yes For back up use only due to use of Dexcom) fluticasone (FLONASE) 50 mcg/actuation nasal spray Use 1 [place] in each nostril once daily. As needed M- PLUS 27 mg iron- 1 mg take 1 tablet by mouth once daily. (Patient not taking: Reported on 05/03/2024) metFORMIN ER (GLUCOPHAGE XR) 500 mg 24 hr tablet Take 2 tablets by mouth two times a day with meals. (Patient not taking: Reported on 05/03/2024) [id number]-[id number] tab Take 1 tablet by mouth once daily. (Patient not taking: Reported on 05/03/2024) No current facility-administered medications for this visit. ALLERGIES Allergen Reactions Codeine Other: See Comments Joselyndian (more content not included)... [facility] 05-03-2024 History of Present illness Narrative Consultation requested by Dr. Ramirez for an opinion regarding loosenig of left great toenail. My final recommendations will be communicated back to the requesting physician by way of shared Medical record or letter to requesting physician via US mail. Initial Podiatric Office Visit: Chief Complaint: This 34 year old female who presents with chief complaint:loosening of left great toenail HPI Patient presents to clinic for evaluation of left great toe States the left hallux nail is lifting off the base. She states she injured her toe in November after falling on gravel. She denies any pain in the toe or toenail. Patient is type two diabetic. Denies any numbness. Last A1c in December was 6.5 Patient currently smokes a 1/2 pack of cigarettes/day. Currently . PAIN EVALUATION No data found in the last 1 encounters. Hemoglobin A1C (%) Date Value 01/08/2024 6.5 10/14/2023 7.1 07/14/2023 6.6 03/11/2023 7.5 08/30/2022 6.6 06/25/2021 7.2 01/10/2021 9.0 10/02/2020 9.9 Hemoglobin A1C (POCT) (%) Date Value 08/30/2022 7.0 PCP: Junior Jeong MD PAST MEDICAL HISTORY Diagnosis Date AMA (advanced maternal age) multigravida 33+, second trimester 03/11/2023 Plans for NT scan and [id number]. Reviewed risks of AMA. Taking ASA 81 mg. Anxiety state Atrial fibrillation (HCC) Cardiac arrest (HCC) With subsequent A. fib after initiation of anesthesia June 2016 with tubal, converted with diltiazem after 11 hours, she follows with cardiology Constipation during in first trimester 09/16/2023 Reviewed Colace and increased hydration. Diabetes type 2, controlled (HCC) 2015 GERD (gastroesophageal reflux disease) History of depression Mixed hyperlipidemia Morbid obesity (HCC) Tobacco dependence Current Outpatient Medications Medication Sig sertraline (ZOLOFT) 100 mg tablet Take 1.5 tablets by mouth every afternoon. Blood-Glucose Sensor (DEXCOM G7 SENSOR) stephanie Insert 1 sensor on the back of arm. Replace every 10 days as directed. omeprazole (PRILOSEC) 40 mg capsule Take 1 capsule by mouth once daily. lidocaine (LIDODERM) 5 % APPLY 1 PATCH DIRECTED EVERY 24 HOURS. REMOVE OLD PATCH PRIOR TO PLACING NEW PATCH. LOCATION: LOW BACK ketotifen fumarate (ZADITOR) 0.025 % (0.035 %) ophthalmic solution Use 1 Drop in both eyes two times a day. As needed loratadine (CLARITIN) 10 mg tablet Take 1 tablet by mouth once daily as needed. albuterol HFA (PROVENTIL HFA, VENTOLIN HFA) 90 mcg/actuation inhaler Inhale 2 Puffs as instructed every 4 hours as needed for wheezing/shortness of breath. blood sugar diagnostic ([employer] VERIO TEST STRIPS) test strip Use as instructed 4 times daily (Patient taking differently: Use as instructed 4 times daily For back up use only due to use of Dexcom) lancets ([employer] DELICA LANCETS) 30 gauge Use as instructed 4 times daily (Patient taking differently: Use as instructed 4 times daily For back up use only due to use of Dexcom) Blood-Glucose Meter (BLOOD GLUCOSE MONITORING) monitoring kit One touch. Use as instructed. Please use voucher Bin [id number]; [facility]N [facility]; Group [id number]; ID NOCHARGEMETR (Patient taking differently: One touch. Use as instructed. Please use voucher Bin [id number]; [facility]N [facility]; Group [id number]; ID NOCHARGEMETR For back up use only due to use of Dexcom) Insulin [place], Disposable, (PEN NEEDLE) 32 gauge x 5/32" Use to inject insulin up to 4 times per day. (Patient taking differently: Use to inject insulin up to 4 times per day. For back up use only due to use of Dexcom) ondansetron orally disintegrating (ZOFRAN ODT) 4 mg disintegrating tablet Take 1 tablet by mouth every 6 hours as needed for nausea/vomiting. Blood-Glucose Meter,Continuous (DEXCOM G7 HOME THEATRE TECHNICIAN) [facility] Use to test blood sugar as directed. alcohol swabs (ALCOHOL PADS) Apply 1 application to affected area once daily. blood sugar diagnostic (BLOOD GLUCOSE TEST) test strip Test blood sugar(s) 3 times daily. Dx: Type 2 DM - Controlled E11.9 Insulin: Yes (Patient taking differently: Test blood sugar(s) 3 times daily. Dx: Type 2 DM - Controlled E11.9 Insulin: Yes For back up use only due to use of Dexcom) fluticasone (FLONASE) 50 mcg/actuation nasal spray Use 1 [place] in each nostril once daily. As needed M-ADAM PLUS 27 mg iron- 1 mg take 1 tablet by mouth once daily. (Patient not taking: Reported on 05/03/2024) metFORMIN ER (GLUCOPHAGE XR) 500 mg 24 hr tablet Take 2 tablets by mouth two times a day with meals. (Patient not taking: Reported on 05/03/2024) [id number] tab Take 1 tablet by mouth once daily. (Patient not taking: Reported on 05/03/2024) No current facility-administered medications for this visit. ALLERGIES Allergen Reactions Codeine Other: See Comments Jardiance [Empaglif* Intolerance Body aches, headaches earache Nalbuphine Vomiting Oxycodone Vomiting Percocet [Oxycodone* Vomiting Metformin Diarrhea, GI Upset Rapid release only-pt states OK to take ER PAST SURGICAL HISTORY Procedure Laterality Date CHOLECYSTECTOMY D&C, DIAG AND/OR THERAPEUTIC 04/16/2023 retained placenta after 16 week demise/PPROM delivery DILATION & CURETTAGE DX&/THER NONOBSTETRIC 2016 multiple procedures LIGATE FALLOPIAN TUBE Pt reported 02/20/2024 TONSILLECTOMY & ADENOIDECTOMY <AGE 10 FAMILY HISTORY Problem Relation Age of Onset Hypertension Mother No Known Problems Father No Known Problems Sister No Known Problems Brother Cancer Maternal Grandmother Sinus Diabetes Paternal Grandmother Heart Failure Paternal Grandmother Heart Failure Paternal Grandfather Social History Tobacco Use Smoking status: Every Day Current packs/day: 0.50 Average packs/day: 0.5 packs/day for 20.0 years (10.0 ttl pk-yrs) Types: Cigarettes Smokeless tobacco: Never Vaping Use Vaping status: Never Used Substance Use Topics Alcohol use: Not Currently Drug use: Never REVIEW OF SYSTEMS GENERAL: Negative for Malaise, significant weight loss, fever RESPIRATORY: Negative for cough, wheezing and shortness of breath CARDIOVASCULAR: Negative for chest pain, leg swelling and palpitations GI: Negative for abdominal discomfort, blood in stools or black stools and change in bowel habits : Negative for dysuria, frequency and incontinence MUSCULOSKELETAL: Negative for joint pain or swelling, back pain, and muscle pain. SKIN: Negative for lesions, rash, and itching. HEMATOLOGY/LYMPHOLOGY Negative for prolonged bleeding, bruising easily, and swollen nodes. ENDOCRINE: Negative for cold or heat intolerance, polyuria, polydipsia and goiter. NEURO: negative Physical Exam: Constitutional: Pt is a well developed 34 year old female who is alert, oriented and cooperative Eyes: Following during examination. No redness or drainage. Respiratory: RR normal and nonlabored. Even breathing. No evidence of distress or shortness of breath. Psychology: Patient is engaged during conversation. Normal affect and mood. Does not appear depressed or anxious during encounter. Vascular: Dorsalis pedis and posterior tibial pulses palpable as b/l Capillary Fill time < 5 seconds to digits 1-5 b/l Skin temperature warm to warm proximal to distal b/l Hair growth present to digits Neurological: intact light touch/epicritic sensation Vibratory sensation intact to hallux b/l intact protective sensation no significant neurological deficits Dermatological: Nails 1-5 right appear normal. Left hallux nail is mostly detached. It is only attached at the medial nail fold. No signs of infection. The nail was debrided and there is new nail about 3/4 distal nail fold. Left 3rd and left 5th toenail shows slight discoloration. No loosening. No signs of infection. Webspaces clean and dry 1-4 b/l. Skin appears well hydrated and supple. good color, texture, turgor. No open lesions present. No callosities present. Musculoskeletal/Orthopaedic: Patient has no pain to palpation of b/l feet Foot type is neutral structurally Radiographs: n/a ASSESSMENT: (L60.8) Onychomadesis (primary encounter diagnosis) (O24.111) Pre-existing type 2 diabetes mellitus during in first trimester PLAN: 1. History and physical examination performed. 2. Discussed the loosening of left hallux nail. This is caused by prior trauma ~ 6 months ago and with new nail formation, this is leading to separation of prior nail. Discussed options not limited to monitoring vs debridement vs avulsion. Patient has elected for debridement. The old nail under sterile conditions was debrided with nail clippers. Small bleed present and treated with topical antibiotic. Informed her that the new nail may become deformed from prior trauam as may be the case with the 3rd and 5th. If these become issues, could have permanent removal. Left great toenail debrided as courtesy. 3. Diabetic education performed. Stressed the importance of daily foot inspection, avoiding barefoot walking and smoking cessation. 4. F/u prn Lizette Pierce DPM Podiatry [address] [facility] [address] Dept: [phone] Dept Patient presents with: Left Foot - New, Nail Check Patient presents for toenail injury to left foot that occurred December 14. At this time left big toenail is and new nail growth noticed underneath. Left 3rd toenail also appears to have layering. Left 5th toenail has discoloration/bruising. documented in this encounter [facility] 05-03-2024 Note HNO ID: [id number] Author: VAL BEAL RN Service: ? Author Type: Registered Nurse Type: Progress Notes Filed: 05/03/2024 10:04 Note Text: Patient presents with: Left Foot - New, Nail Check Patient presents for toenail injury to left foot that occurred December 14. At this time left big toenail is and new nail growth noticed underneath. Left 3rd toenail also appears to have layering. Left 5th toenail has discoloration/bruising. [facility] 04-25-2024 Telephone encounter Note Patient notified. Appointment rescheduled. Rosaline Scott RN [facility] 04-25-2024 Miscellaneous Notes Patient notified. Appointment rescheduled. Rosaline Scott RN Please advise patient that she does not need an annual until next year but happy to see her if she has other concerns. visit 03/31/24 Vasu Gaxiola APRN.CNP documented in this encounter [facility] 04-25-2024 Telephone encounter Note Please advise patient that she does not need an annual until next year but happy to see her if she has other concerns. visit 03/31/24 Vasu Gaxiola APRN.CNP [facility] 04-07-2024 History of Present illness Narrative AMBULATORY TELEPHONE VISIT Charmaine Avila has consented to this telephone encounter. Persons Present: patient Chief Complaint/Reason: toenail problem HPI: Reports her toe was injured in a fall 2 months ago. She reported falling on gravel and injuring the toe. She has had discolored right great toenail since that time. The injury toenail is beginning to lift off and is not securely attached all the way around now. No drainage or fever no surrounding erythema or warmth. She reports wearing flip flops year round. Data Reviewed: EPIC chart Exam and image review:. She has a new nail growing at the base and the old nail is lifting off. Assessment: (L60.8) Acquired deformity of toenail (primary encounter diagnosis) Plan: ASSESSMENT/PLAN: 1. Acquired deformity of toenail - ICD9: 703.9, ICD10: L60.8 Recommend using a Band-Aid or a piece of paper tape to keep to secure not being traumatically avulsed. Endorse protective shoe wear if willing. Recommend keep podiatry appointment. Let us know if any problems before she is seen by podiatry. - CONSULT TO PODIATRY Total Time Spent: 15 minutes Fercho Perez APRN.CNS documented in this encounter [facility] 04-07-2024 Note HNO ID: [id number] Author: FERCHO PEREZ APRN.CNS Service: ? Author Type: Nurse Specialist Type: Progress Notes Filed: 04/07/2024 15:22 Note Text: AMBULATORY TELEPHONE VISIT Charmaine Avila has consented to this telephone encounter. Persons Present: patient Chief Complaint/Reason: toenail problem HPI: Reports her toe was injured in a fall 2 months ago. She reported falling on gravel and injuring the toe. She has had discolored right great toenail since that time. The injury toenail is beginning to lift off and is not securely attached all the way around now. No drainage or fever no surrounding erythema or warmth. She reports wearing flip flops year round. Data Reviewed: [facility] chart Exam and image review:. She has a new nail growing at the base and the old nail is lifting off. Assessment: (L60.8) Acquired deformity of toenail (primary encounter diagnosis) Plan: ASSESSMENT/PLAN: 1. Acquired deformity of toenail - ICD9: 703.9, ICD10: L60.8 Recommend using a Band-Aid or a piece of paper tape to keep to secure not being traumatically avulsed. Endorse protective shoe wear if willing. Recommend keep podiatry appointment. Let us know if any problems before she is seen by podiatry. - CONSULT TO PODIATRY Total Time Spent: 15 minutes Fercho Perez APRN.SHREDDED FILLER CUTTER OPERATOR [facility] 03-31-2024 Instructions Vasu Gaxiola APRN.TIE UP WORKER - 03/31/2024 4:09 PM EST Psychotherapy Services at [facility] Call Behavioral Health Access Line at [phone] to schedule Individual psychotherapy In-person or virtual Wait time for first evaluation may be 12 or more weeks. Wait list spots may be available. Due to the high volume of patients this option is recommended if you are looking for short term acute symptom coping strategies. 5-610-0-WQQR6TSLT - [facility] Mental Health Hotline If you are in suicidal crisis, please call or text 8-847-086-TALK ( ) or visit the National Suicide Prevention Lifeline website. mchb.hrsa.gov If you are in crisis, call 911 or go to your nearest Emergency Department Here are some links for wonderful Providers here in the community and surrounding areas. Do not hesitate to contact their offices, many are offering virtual visits during this time. Psychotherapy Services outside of [facility] [employer] Online Provider Directory [email or web address] - can assist in finding providers in your area that might be more extensive then the list below. [facility] [place], [place] [address] [place] [address] [facility] [address] [place] [address] [facility] [address] [place] [address] [facility] [address] [place] [address] Jacquie Arce MD [address] [place] [address] [facility] [address] [facility], [address] [place] [address] [facility]iatric Services [address] [place] [address] [facility] Counseling Services [place] / [place] [phone]/ [phone] [facility] [address] [facility] [phone] Aves of Counseling and Mediation [place] / [place] [phone] Behavioral health services of [facility] [address] [place] [address]/ [place] [phone] Lina Contreras, APPLIED STATISTICIAN, CLC [facility] Therapy Workshops, telehealth and at home visits. [phone] Humanistic counseling center 20 locations [place], [place], [place], [place], [place], [place], [place], [facility], [place], [place], [place], [place], [place], [place], [facility], [place], [place] ,[facility], [place], [place],[facility], [facility], [place], [facility], [place], [place] www.Globeecom Internationalconorthern state hospitalA LITTLE WORLD [phone] Psychotherapy resources outside of [facility] are listed below Holding [facility] Psychotherapy Web: https://www.Snapfinger, Inc.spacecleSweetLabs/ Support International Online Provider Directory https://ChurchPairing/ Insight [facility] https://insightcoEaspring Material Technology/ Partners for Behavioral Health and Wellness Web: https://NonWoTecc Medical/ [place] for Effective Living Web: https://Parselyliving.LawKick/ LifeStance Web: https://MFive Labs (Listn)/location/sta te/[place]/ [facility] Web: https://www.[facility].org/ The Centers Web: https://Veezeon.Sividon Diagnostics/ Recovery Resources Mental health and substance abuse help Web: https://Unlimited Concepts.AgLocal & RESOURCES Support International Direct peer support and connection to professional resources Non-Emergency Helpline Phone: / Text: [phone] Web: https://www..net/ Online Provider Directory: https://ChurchPairing/ Online Support Meetings: https://www..net/get-help /zjz-jwajlp-xwebgrj-meetings/ MINI Baby and Platform Power Technician Services Web: https://wwwNGRAIN/ MotherToBaby Expert information on medication use during and Text: [phone] Web: https://Bootleg Market/ NATIONAL REGISTRY FOR PSYCHIATRIC MEDICATIONS Currently studying the safety of antidepressants, ADHD medications and atypical antipsychotics taken during TO PARTICIPATE CALL TOLL-FREE: Web: https://womensmentalhealth.org/rese arch/pregnancyregistry/ Support Groups: [facility] [place] [facility]- Follow on facebook Baby Bistro support group led by [facility] department Resilient Mamas - Support Group [facility].org The POEM support group [phone] Www.poemonline.org Follow on facebook - ZAHEER kirkpatricknicholson lissett Online support meetings PSI https://www..net/get-help /ccw-ueywha-xsxvyda-meetings/ C[facility] momfreida and me virtual support group 11:30-1pm Support for mothers and new babies and toddlers Anderson childbirth education: Childbirth @cc.org or call [phone] CRISIS: CRISIS HOTLINE [phone], 911 or go to the nearest ER. [facility] [phone] / [facility] [phone] https://www.north general hospitalrb.org Crisis text line text the word "HOME" to 933150 [place] [facility] Counseling [address] [facility] [address] www.MileIQ Teresa Cohn clinical counseling [address] [address] www.OnMyBlock [phone] Holding space psychotherapy Madeleine [place] EXTRACT PULLER CLIP ON SUNGLASSES INSPECTOR-S [address] [facility] www.NGenTec [phone]/ [place] [phone] They all offer virtual. All work with trauma Support groups Online support meetings PSI https://www..net/get-help /kic-nnqvcm-sbtkbdj-meetings/ Here are the support groups they offer: Support of parents of 1 to 4 years old children POEM ( Outreach and Encouragement for Moms) offers free support for mothers experiencing depression, anxiety, and other mood and anxiety disorders. Masks are recommended but not required. No pre-registration required. Babies in arms welcome. meetings now take place on the and Thursday of each month Location: [facility] [address] [place] [address] Room 122 (library room) 7-8:00 p.m. When you enter the alevism parking lot off of [address] the entrance door closest to our meeting room is on the front of the building toward the right. For those who are more comfortable with a virtual platform, PO offers online support group options several days of the week. To register for an online group or to find out more about POEM, website at: https://mhaohio.org/get-help/matern jc-vnhlel-xjvjlx/poem-services/ offer a confidential helpline: private Facebook group is called ZAHEER Corona Here are the groups they offer: Traumatic childbirth resources: Http://Nurep Inc..org/ https://www.JavelinalejandroFastmobile .LawKick/ Name Location (s) Phone # (s) Services Website [facility]umpers [facility] [address] [facility] [phone]; [address] [phone] In-Person GROUPS INDIVIDUAL THERAPY MATERNAL-INFANT MENTAL HEALTH MEDICATION MANAGEMENT PLAY AND ART THERAPY TELETHERAPY https://www.NovaPlanner/ser vices/ [facility] [place] NICHOLSON? [address] [address] ? [address], [address] [place], [place] [address] ? W[place]ACE [address] [address]? Grief Support Groups Individual Grief Counseling Spiritual Care Memorial Events https://nicholson.cornerstoneofhope .org/grief-services [facility] [address] [place], [place] [address]; ; Email: [email or web address] Steak [employer]afood Women's Mental Health; Couples Counseling; Trauma (EMDR); Stress Management; Mood and Anxiety Related Disorders- and much more https://www.NuPotential/ LifeStance Numerous as they have contract providers: access website to find specific providers near you Counseling including CBT and EMDR as well as many more modalities; Medication Management; Telehealth and In-Person https://Mealnut.LawKick/ [facility] for [facility]al [facility] and Wellness [address] [address]; [phone] Personal, Family and Group Therapy; Psychological Testing and Diagnosis; Medication Management; Life and Career Coaching; Psychoanalysis; Literacy Testing; Yoga and Meditation https://Teralytics.LawKick/ Fit Mind [place] [address] [facility] [address], [place] [address] [address] ; [address] [facility], [address] [place] [address]; Office # for both sites: Individual and Couples Counseling https://www.Little Eye LabsminPicatcha.LawKick/genia ymwansukali.html OCD & Anxiety [facility] [address], [address], [place] [address]; Specialize in Cognitive-Behavioral Therapy (CBT) for the treatment of anxiety disorders across the lifespan. TELEHEALTH ONLY. https://ocdandanxietycentLightArrow/faqs [facility] [address] [facility] [address]th [place], [address] [place] [address] [place], [address] [place] [address] [facility] [place], [address] [place] [address] [facility] [place], [address], [address] [place] [address] [place] [address]. [place], [address] [place] [address] [place], [address] Transportation Services To minimize patient barriers, [facility] provides transportation services to patients who qualify. If you are unable to get to your appointment at any of our facilities, please let us know. Need help now? Stop by one of our walk-in clinics to establish behavioral health care. Counseling Indvidual, Group, Couples and Family Counseling and EMDR. Medication Management Case Management benefits applications housing assistance Substance abuse treatment Medication assisted treatment https://www.[facility].org/ mental-health/ [facility] OFFICE AT [facility] [address] [place] [address] [facility] OFFICE [address] [place] [address] [facility] OFFICE [address] [place] [address] [facility] OFFICE (at [facility]) [address] [place] [address] [facility] SYRINGE EXCHANGE PROGRAM & HIV SCREENING [address] [place] [address] VAN [place] EXCHANGE PROGRAM [address] [place] [address] Behavioral Health Urgent Care: [facility] Counseling Indvidual and Group Medication Management Case Management benefits applications housing assistance Substance abuse treatment Medication assisted treatment Employment Services/ Job Training https://Veezeon.org/ Recovery Resources [address] [place], [place] [address]: P: [phone] [address] [facility], [address], [place], [place] [address] P: [phone] Our services include: Addiction Mental Health Treatment Assessment Psychiatry Medical Care Employment Housing Drug and Alcohol Prevention HIV/AIDS Prevention https://www.recres.org/ [facility] [place] [address] [place] [address] [place], [place] [address] [place] [address] [place] [address] [place] [address] [facility] [address] [place] [address] [place] [address] [address] [place] [address] TMS Therapy/ Counseling Psychocological Testing for ADHD Medication Management In-Person/ Telemedicine https://www.NEXGRID.LawKick/jesus ts-depression Memory & Psychological services [address] [address], [place] [address] Neuropsychological Testing For ADHD https://www.memoryandpsych.com/ [facility] Office [address] [place] [address] [address] Providing vpfj-kd-kyvx and telehealth services. Adult Case Management Community Education and Prevention Employment Outpatient Treatment - Counseling & Psychotherapy Psychiatric Services http://www.ccwhc.org/ [facility] [address] [place] [address] Sumeet [facility]) [address] [place] [address] Virtual Appointments! Now offering safe and convenient virtual client appointments to anyone in [place]! Individual Therapy Couples/Relationship Therapy Trauma/EMDR Therapy Art Therapy Play Therapy Die Presser Support: Parenting Skills, Parent Child Interaction Therapy, Parent Interaction Therapy Meditation Dietitian/Director Regulatory Affairs Services Group Therapy Yoga https://www.Rösler miniDaTcoGridtential Energy.co zahraa/ Lora Ty [phone] Private Practice: Telehealth Only Specializes in EMDR for Trauma None documented in this encounter [facility] 03-31-2024 History of Present illness Narrative Patient declined windows admin. VISIT Charmaine Avila is a 34 year old year old here for visit. Delivery Summary: Csection (T Incision) 02/20/2024 [place] male 2 lbs, 14 ozs 1:00 AM. Bilateral salpingectomy [place] 28w4d ROS/ Recovery: Feeding: Breast feeding, feeding tube problems: None Menses since delivery: None Menstrual pattern prior to : Regular periods [place] since delivery: Resumed, denied concerns Depression: Admits to symptoms of anxiety. OB Depression and Anxiety Screening- This Encounter (since 03/30/2024) Over the past 2 weeks have you felt down, depressed, or hopeless? Negative Over the past two weeks, have you felt little interest or pleasure in doing things? Negative Feeling nervous, anxious or on edge 3-Nearly every day Not being able to stop or control worrying 2-More than half the days Anxiety Pre-Screening Total (If >/= 3 additional questions will be reviewed) 5 Worrying too much about different things 3-Nearly every day Trouble relaxing 2-More than half the days Being so restless that it is hard to sit still 3-Nearly every day Becoming easily annoyed or irritable 1-Several days Feeling afraid, as if something awful might happen 0-Not al all Anxiety (DAVI) Full Screening Total 14 Emotional support: Yes Bowel symptoms: No nausea, vomiting, or diarrhea, Negative for abdominal discomfort, blood in stools or black stools, and change in bowel habits Abdomen: She reports no incisional redness, tenderness, erythema Bladder symptoms: No dysuria, gross hematuria, urinary frequency, urinary urgency, or incontinence Other issues: None Last Pap: 2022 normal HPV: negative PAST MEDICAL HISTORY Diagnosis Date Anxiety state Atrial fibrillation (HCC) Cardiac arrest ([facility]) With subsequent A. fib after initiation of anesthesia June 2016 with tubal, converted with diltiazem after 11 hours, she follows with cardiology Constipation during in first trimester 09/16/2023 Reviewed Colace and increased hydration. Diabetes type 2, controlled ([facility]) 2015 GERD (gastroesophageal reflux disease) History of depression Mixed hyperlipidemia Morbid obesity ([facility]) Tobacco dependence PAST SURGICAL HISTORY Procedure Laterality Date CHOLECYSTECTOMY D&C, DIAG AND/OR THERAPEUTIC 04/16/2023 retained placenta after 16 week demise/PPROM delivery DILATION & CURETTAGE DX&/THER NONOBSTETRIC 2016 multiple procedures TONSILLECTOMY & ADENOIDECTOMY <AGE 10 FAMILY HISTORY Problem Relation Age of Onset Hypertension Mother No Known Problems Father No Known Problems Sister No Known Problems Brother Cancer Maternal Grandmother Sinus Diabetes Paternal Grandmother Heart Failure Paternal Grandmother Heart Failure Paternal Grandfather Social History Tobacco Use Smoking status: Every Day Current packs/day: 0.50 Average packs/day: 0.5 packs/day for 20.0 years (10.0 ttl pk-yrs) Types: Cigarettes Smokeless tobacco: Never Vaping Use Vaping status: Never Used Substance Use Topics Alcohol use: Not Currently Drug use: Never PHYSICAL EXAMINATION: SENSITIVE EXAM: The sensitive examination was discussed with the Patient or Patient's Authorized Build Automation Engineer. As applicable, any other physician, advance practice provider, medical student, or other health professional student that will be observing or involved in the sensitive examination for educational or training purposes was discussed with the Patient or Authorized Build Automation Engineer. The Patient or Authorized Build Automation Engineer has agreed to proceed with the sensitive examination. (Sensitive examination includes inspection and/or palpation of the breasts, pelvis, prostate and anorectal regions). BP 138/82 Wt 230 lb (104.3kg) LMP 07/28/2023 GENERAL: pleasant, female in no apparent distress HEENT: Normocephalic, atraumatic, mucus membranes moist, and no lesions NECK: Supple, full range of motion, no adenopathy, and thyroid normal DERMATOLOGY: Normal, without lesions, non-icteric, and non-hirsute BREAST: soft, non-tender, symmetric, no dominant mass, normal nipple-areolar complex, no lymphadenopathy, and no nipple discharge CHEST: Normal inspiratory effort ABDOMEN: soft, non-tender, and no masses. INCISION: No incisional redness, swelling, or drainage PELVIC: external genitalia normal, normal Bartholin's glands, urethra, Lemont's glands, no vulvar lesions, no cervical lesions, good vaginal support, physiologic discharge present, normal appearing perineal body and perianal region BIMANUAL: uterus normal size, shape and consistency, no adnexal masses, and non-tender NEURO: alert and oriented x3,exam grossly non-focal EXTREMITIES: normal ASSESSMENT AND PLAN: 34 year old status post CS with course complicated by anxiety. Contraception plan: tubal ligation Follow up: Can resume intercourse when physically, emotionally, and mentally ready. Reviewed the physical and mental changes that occur after having a baby. Reviewed what to expect first year and when to follow up. 2. anxiety - ICD9: 648.44, 300.00, ICD10: O99.345, F41.8 - Recently increased dose to 150 mg of Zoloft by [place] - No longer seeing counselor - Reports to me that she's coping well although DAVI score 14 - Denies thoughts of self harm - Mental health resources provided Type [address] Ramirez -- per 02/29/24 note: 1. Glycemic control: Target HbA1C is less than 7.0% per ADA guidelines. This patient is not at target. At this point I will initiate the following changes to her diabetes regimen: 1) restart insulin as follows: NPH 10 units at bedtime and Humalog 5 units prior to each meal + additional 5 units of Humalog with any "higher carb" meals (abelino with * as you are doing) 2) continue Metformin ER 500 mg two tabs twice/day with meals 3) will review your BG log/CGM data on thursday for the next 1-2 weeks until we achieve proper glycemic control 4) see me in six months for f/u (virtual visit ok) fasting blood work prior Recommend follow up with PCP. BP elevated in office today. Typically not elevated. Planning to breastfeed baby for first time tomorrow! Vasu Gaxiola APRN.KATHI documented in this encounter [facility] 03-08-2024 Telephone encounter Note Prescription Refill Information The patient has been identified by name and date of : Yes Caregiver verified no other encounters exist for this prescription request: Yes Caregiver confirmed with patient/requestor that no other refills are due, in the near future, with this provider at this time: Yes The last office visit in the department: 08/05/23 Does the patient have a future office visit with this provider/department: Yes 08/04/24 Requested Prescriptions Pending Prescriptions Disp Refills Blood-Glucose Sensor (DEXCOM G7 SENSOR) stephanie 3 Each 2 Sig: Insert 1 sensor on the back of arm. Replace every 10 days as directed. Eliza Harden LPN March 08, 2024 10:46 AM [facility] 03-08-2024 Miscellaneous Notes Prescription Refill Information The patient has been identified by name and date of : Yes Caregiver verified no other encounters exist for this prescription request: Yes Caregiver confirmed with patient/requestor that no other refills are due, in the near future, with this provider at this time: Yes The last office visit in the department: 08/05/23 Does the patient have a future office visit with this provider/department: Yes 08/04/24 Requested Prescriptions Pending Prescriptions Disp Refills Blood-Glucose Sensor (DEXCOM G7 SENSOR) stephanie 3 Each 2 Sig: Insert 1 sensor on the back of arm. Replace every 10 days as directed. Eliza Harden LPN March 08, 2024 10:46 AM documented in this encounter [facility] 02-29-2024 History of Present illness Narrative Reason for Consultation: post f/u- type 2 diabetes mellitus. Referring Physician: Vasu Gaxiola APRN, CNP My final recommendations will be communicated back to the requesting physician by way of shared Medical record or letter via US mail. This Team Access Model visit is a virtual encounter. It required patient-provider interaction for the medical decision making as documented below. I have communicated my name and active licensure. The patient's identity and physical location were verified at the time of this visit. Either the patient or their legal branch service representative has been informed of the risks and benefits of -- and alternatives to -- treatment through a remote evaluation and consents to proceed with the evaluation remotely. HISTORY OF PRESENT ILLNESS Ms. Avila is a 34 year old F here for post f/u- she delivered a 2lbs 14oz M at 28 weeks ( labor)- she delivered at [facility], son is in [facility]. She delivered 02/19. I followed her during this regarding type 2 diabetes antepartum. Last visit with me was 01/04/24. Pt with GDM in all three previous pregnancies. She was initially diagnosed with diabetes in 2016- after delivery of third child after post GTT. Required insulin during third (as well as glyburide) No known microvascular or macrovascular complications - states she follows with ophthalmology annually - saw them during her recent - no DR. Prior to this she was taking Metformin ER 500 mg two tabs twice/day + Trulicity prior to the - discontinued Trulicity just prior to the . Insulin was initiated at her first visit wit me and was adjusted weekly in between visits- most recently on 02/09- regimen prior to delivery was as follows: NPH 25 units at bedtime and Humalog 15 units prior to each meal + additional 5 units of Humalog with any "higher carb" meals (abelino with * as you are doing Metformin ER 500 mg two tabs twice/day with meals Known complications include: none Exacerbating factors include: insulin resistance Current diabetes regimen is as follows: Metformin ER 500 mg two tabs twice/day (she discontinued insulin on her own after delivery until this f/u today) She is checking her blood glucose 4 times daily (+ sensor) This continuous glucose monitoring (sensor) data can be found in the procedure note CGM Report Interpretation: 1. Nocturnal glucose control: Uncontrolled glucose NOT previously detected: Yes If yes: Hyperglycemia detected Notes: will restart basal insulin 2. Post prandial glucose excursions: Uncontrolled glucose NOT previously detected: Yes If yes: Hyperglycemia detected Notes: restarting prandial insulin. 3. Hypoglycemia incidence: Uncontrolled glucose NOT previously detected: No Notes: n/a 4. Other (e.g., exercise/activity): n/a She is nursing. No issues with BG while nursing. Hypoglycemia frequency: infrequent if at all Hypoglycemia awareness: Yes Regarding symptoms of hyperglycemia, she is not experiencing any symptoms such as polyuria, polydipsia, nocturia or rapid weight loss or blurry vision, No complaints/concerns at this time- PAST MEDICAL HISTORY Diagnosis Date Anxiety state Atrial fibrillation (HCC) Cardiac arrest (HCC) With subsequent A. fib after initiation of anesthesia June 2016 with tubal, converted with diltiazem after 11 hours, she follows with cardiology Constipation during in first trimester 09/16/2023 Reviewed Colace and increased hydration. Diabetes type 2, controlled ([facility]) 2015 GERD (gastroesophageal reflux disease) History of depression Mixed hyperlipidemia Morbid obesity ([facility]) Tobacco dependence PAST SURGICAL HISTORY Procedure Laterality Date CHOLECYSTECTOMY D&C, DIAG AND/OR THERAPEUTIC 04/16/2023 retained placenta after 16 week demise/PPROM delivery DILATION & CURETTAGE DX&/THER NONOBSTETRIC 2016 multiple procedures TONSILLECTOMY & ADENOIDECTOMY <AGE 12 FAMILY HISTORY Problem Relation Age of Onset Hypertension Mother No Known Problems Father No Known Problems Sister No Known Problems Brother Cancer Maternal Grandmother Sinus Diabetes Paternal Grandmother Heart Failure Paternal Grandmother Heart Failure Paternal Grandfather Social History Tobacco Use Smoking status: Every Day Current packs/day: 0.50 Average packs/day: 0.5 packs/day for 20.0 years (10.0 ttl pk-yrs) Types: Cigarettes Smokeless tobacco: Never Vaping Use Vaping status: Never Used Substance Use Topics Alcohol use: Not Currently Drug use: Never Allergies As of Date: 02/29/2024 Allergen Noted Reaction CODEINE 10/02/2020 Other: See Comments JARDIANCE [EMPAGLIFLOZIN] 08/26/2021 Intolerance NALBUPHINE 10/02/2020 Vomiting OXYCODONE 03/22/2019 Vomiting PERCOCET [OXYCODONE-ACETAMINOPHEN]10/02/2020 Vomiting METFORMIN 03/11/2023 Diarrhea and GI Upset Fully Assessed 02/15/2024 Current Outpatient Medications Medication Sig Dispense Refill omeprazole (PRILOSEC) 40 mg capsule Take 1 capsule by mouth once daily. 30 capsule 3 Magnesium Oxide 500 mg magnesium tab Take 1 tablet by mouth once daily. 90 tablet 3 insulin NPH (HUMULIN N NPH INSULIN KWIKPEN) 100 unit/mL (3 mL) injection pen 25 units at bedtime 5 Each 11 insulin lispro (HUMALOG KWIKPEN) 100 unit/mL 12 units prior to each meal + scale 5 Each 11 M-ADAM PLUS 27 mg iron- 1 mg take 1 tablet by mouth once daily. 30 tablet 5 lidocaine (LIDODERM) 5 % APPLY 1 PATCH DIRECTED EVERY 24 HOURS. REMOVE OLD PATCH PRIOR TO PLACING NEW PATCH. LOCATION: LOW BACK 30 Patch 2 DEXCOM G7 SENSOR stephanie INSERT 1 SENSOR ON THE BACK OF ARM. REPLACE EVERY 10 DAYS DIRECTED. 3 Each 2 sertraline (ZOLOFT) 100 mg tablet take 1 tablet by mouth once daily. 90 tablet 2 Insulin [place], Disposable, (PEN NEEDLE) 32 gauge x 5/32" Use to inject insulin up to 4 times per day. 150 Each 5 metFORMIN ER (GLUCOPHAGE XR) 500 mg 24 hr tablet Take 2 tablets by mouth two times a day with meals. 360 tablet 3 aspirin, enteric coated (ASPIRIN, ENTERIC COATED) 81 mg EC tablet Take 1 tablet by mouth once daily. 90 tablet 3 ketotifen fumarate (ZADITOR) 0.025 % (0.035 %) ophthalmic solution Use 1 Drop in both eyes two times a day. As needed 5 mL 11 loratadine (CLARITIN) 10 mg tablet Take 1 tablet by mouth once daily as needed. 90 tablet 1 albuterol HFA (PROVENTIL HFA, VENTOLIN HFA) 90 mcg/actuation inhaler Inhale 2 Puffs as instructed every 4 hours as needed for wheezing/shortness of breath. 1 Each 2 Jsittmxs-Pk-Hac-Fe-FA tab Take 1 tablet by mouth once daily. 30 tablet 5 blood sugar diagnostic (ONETOUCH VERIO TEST STRIPS) test strip Use as instructed 4 times daily (Patient taking differently: Use as instructed 4 times daily For back up use only due to use of Dexcom) 150 Strip 11 lancets (EpitiroTOUCH DELICA LANCETS) 30 gauge Use as instructed 4 times daily (Patient taking differently: Use as instructed 4 times daily For back up use only due to use of Dexcom) 150 Each 11 Blood-Glucose Meter (BLOOD GLUCOSE MONITORING) monitoring kit One touch. Use as instructed. Please use voucher Bin [id number]; PCN [facility]; Group [id number]; ID NOCHARGEMETR (Patient taking differently: One touch. Use as instructed. Please use voucher Bin [id number]; N [facility]; Group [id number]; ID NOCHARGEMETR For back up use only due to use of Dexcom) 1 Kit 0 Insulin [place], Disposable, (PEN NEEDLE) 32 gauge x 5/32" Use to inject insulin up to 4 times per day. (Patient taking differently: Use to inject insulin up to 4 times per day. For back up use only due to use of Dexcom) 100 Each 5 ondansetron orally disintegrating (ZOFRAN ODT) 4 mg disintegrating tablet Take 1 tablet by mouth every 6 hours as needed for nausea/vomiting. 10 tablet 0 Blood-Glucose Meter,Continuous (DEXCOM G7 HOME THEATRE TECHNICIAN) [facility] [place] Use to test blood sugar as directed. 1 Each 0 alcohol swabs (ALCOHOL PADS) Apply 1 application to affected area once daily. 100 Each 2 blood sugar diagnostic (BLOOD GLUCOSE TEST) test strip Test blood sugar(s) 3 times daily. Dx: Type 2 DM - Controlled E11.9 Insulin: Yes (Patient taking differently: Test blood sugar(s) 3 times daily. Dx: Type 2 DM - Controlled E11.9 Insulin: Yes For back up use only due to use of Dexcom) 100 Strip 5 fluticasone (FLONASE) 50 mcg/actuation nasal spray Use 1 [place] in each nostril once daily. As needed No current facility-administered medications for this visit. REVIEW OF SYSTEMS General: no fever and no chills- she is not yet back to prepregnancy weight. She is nursing. Skin: no rashes, pruritis or dry skin Cardiac: denies chest pain, heart palpitations or orthopnea Pulmonary: denies wheezing, productive cough or exertional dyspnea PHYSICAL EXAMINATION No vitals as this was a virtual visit. GENERAL: Alert, no distress, cooperative SKIN: Skin color, texture, turgor normal. No rashes or lesions. HEAD/SINUSES: No significant findings EYES: sclera non-icteric, EOMs intact. ABDOMEN: Normal abdominal exam EXTREMITIES: Normal exam of the extremities NEURO: AAO x 3, no focal deficits. The remainder of the physical exam is noncontributory. DATA Creatinine Date Value Ref Range Status 01/08/2024 0.41 (L) 0.58 - 0.96 mg/dL Final Hemoglobin A1C (%) Date Value 01/08/2024 6.5 06/25/2021 7.2 Hemoglobin A1C (POCT) (%) Date Value 08/30/2022 7.0 ) No components found for: URINEALBUMIN Cholesterol, Total (mg/dL) Date Value 07/14/2023 194 Total Cholesterol, Nonfasting (mg/dL) Date Value 10/02/2020 129 HDL Cholesterol (mg/dL) Date Value 07/14/2023 41 HDL Cholesterol, Nonfasting (mg/dL) Date Value 10/02/2020 34 LDL Cholesterol (mg/dL) Date Value 07/14/2023 121 LDL Cholesterol, Nonfasting (mg/dL) Date Value 10/02/2020 80 Triglyceride (mg/dL) Date Value 07/14/2023 158 Triglycerides, Nonfasting (mg/dL) Date Value 10/02/2020 75 IMPRESSION: Ms. Avila is a 34 year old F here for post f/u- type 2 diabetes mellitus. RECOMMENDATIONS: 1. Glycemic control: Target HbA1C is less than 7.0% per ADA guidelines. This patient is not at target. At this point I will initiate the following changes to her diabetes regimen: 1) restart insulin as follows: NPH 10 units at bedtime and Humalog 5 units prior to each meal + additional 5 units of Humalog with any "higher carb" meals (abelino with * as you are doing) 2) continue Metformin ER 500 mg two tabs twice/day with meals 3) will review your BG log/CGM data on thursday for the next 1-2 weeks until we achieve proper glycemic control 4) see me in six months for f/u (virtual visit ok) fasting blood work prior The patient was reminded to check her blood glucose as she is doing (sensor) and to record the data in a logbook. She was advised to bring their logbook to each office visit. I recommended at least 150 minutes per week of moderate physical activity, such as walking and to reduce carbohydrates and overall caloric intake. 2. Hypertension/BP control: BP goal for patients with diabetes is 130/80. 3. Lipids: Target LDL cholesterol in patients with diabetes is less than 100, less than 70 if patient has overt CVD. Several studies have shown cardiovascular benefits of statin therapy in all patients with diabetes over age 40 with at least 1 CVD risk factor. Will check fasting blood work, urine studies prior to 6 month f/u. 4. Antiplatelet therapy: Low dose antiplatelet therapy is recommended for patients with diabetes at increased cardiovascular risk. This includes most men over age 50 and most women over age 60. 5. Nephropathy screening: Annual measurement of urine albumin excretion is recommended in patients with diabetes. Will check fasting blood work, urine studies prior to 6 month f/u. 6. Ophthalmology: Annual dilated eye exams are recommended for patients with type 1 and type 2 diabetes. This patient is up to date with their annual eye exam and has no history of retinopathy. The patient was asked to follow up with me in 6 months. I spent a total of 30 minutes on the date of the service which included preparing to see the patient, [id number] patient care, completing clinical documentation, obtaining and/or reviewing separately obtained history, performing a medically appropriate examination, and counseling and educating the patient/family/caregiver. Adeel Ramirez DO documented in this encounter [facility] 02-29-2024 Procedure note Procedure(s): EXTERNAL HOME THEATRE TECHNICIAN, CGM SYS Images from the original note were not included. [facility] 02-29-2024 Procedure note Procedure(s): EXTERNAL HOME THEATRE TECHNICIAN, CGM SYS Images from the original note were not included. documented in this encounter [facility] 02-22-2024 Nurse Note Mom discharged via ambulation in good condition with all belongings to a private residence, accompanied by mother. All discharge instructions reviewed with patient who verbalizes understanding and denies further questions. [facility] 02-22-2024 Nurse Note Mom discharged via ambulation in good condition with all belongings to a private residence, accompanied by mother. All discharge instructions reviewed with patient who verbalizes understanding and denies further questions. Secure message to OB Residents - pt has returned from [facility] - she said baby RN wants OB to know that baby has E.Coli in his blood in case we need to treat mom". Pt left unit via BW/C with to [facility] to visit baby. RU order received and paperwork signed. Late Entry due to pt care: 0525: RN obtained pt's fasting BGT. Pt's fasting BGT 223. RN notified Dr. Siegel via secure chat regarding pt's BGT. Per Dr. Siegel ok for RN to treat pt's BGT of 223 with insulin using the sliding scale this morning. 0634: RN administered 2 units of Humalog using sliding scale to treat the pt's BGT of 223. Dr chino notified of mbs 277 documented in this encounter [facility] 02-22-2024 Note Formatting of this n ote might be different from the original. Date: 02/22/2024 Name: Charmaine Avila : 1990 [facility] Patient Information Primary Caregiver: Self Accompanied by/Relationship: S/O;Family Marital Status: Single Support System: SO/Family Bahai/Cultural Factors: none Activities of Daily Living Communication: See demographics Living Arrangements Current Residence: Private residence Lives With: S/O; Family Support System: S/O; Family Income Information Income Source: Not Employed Financial Resource Strain How hard is it for you to pay for the very basics like food, housing, medical care and heating? N/A Housing Stability In the last 12 months, was there a time when you did not have a steady place to sleep or slept in a prison (including now)? No Transportation Needs Has the lack of Transportation kept you from medical appointments? No In the past 12 months, has the lack of transportation kept you from meetings, work, or from getting things needed for daily living? No Food Insecurity Within the past 12 months, have you worried that your food would run out before you got the money to buy more? No Stress Do you feel stress - tense, restless, nervous, or anxious, or unable to sleep at night because you mind is troubled all the time? Mood stable Referral To Financial Resources: N/A Community Resources: Admission folder given upon admission to PP Unit Social Work: N/A CLP: N/A Medical Information 34 year old admitted for PPROM at 29/4 weeks. delivery. in NICU at [facility]. Discharge Plan Home or Community Resources: Admission folder given upon admission to PP unit Equipment: N/A Education Given: Discussion on the A. B. C's of safe sleep. Always place your baby on his or her back to sleep, use a firm sleep surface and your baby should not sleep in an adult bed, on a couch or chair. Keep soft objects, toys and loose bedding out of your baby's sleep area. Reviewed depression. It is common to have blues. This is a normal response to many of the hormonal changes, stress and lack of sleep that go with raising a and physically recovering from the . Don't hesitate to talk to your provider with any concerns. There are resources in your home going booklet. To help prevent germs from spreading to you and your baby, make sure everyone washes their hands before they handle your . Avoid crowds, and keep away from sick people, anyone who is sick with a cough or fever, including family members. Post- warning signs information reviewed with patient per nurse with discharge Additional Information: Patient is independent and has insurance. She is prepared with her baby supplies. To be discharged to home. Denies any concerns at this time. Mental Health Services: Resources in discharge folder Equipment: Developmental Delay: N/A Children's Services: N/A T [facility] 02-22-2024 Note Formatting of this n ote might be different from the original. Date: 02/22/2024 Name: Charmaine Avila : 1990 [facility] Information [place] Patient Information Primary Caregiver: Self Accompanied by/Relationship: S/O;Family Marital Status: Single Support System: SO/Family Bahai/Cultural Factors: none Activities of Daily Living Communication: See demographics Living Arrangements Current Residence: Private residence Lives With: S/O; Family Support System: S/O; Family Income Information Income Source: Not Employed Financial Resource Strain How hard is it for you to pay for the very basics like food, housing, medical care and heating? N/A Housing Stability In the last 12 months, was there a time when you did not have a steady place to sleep or slept in a prison (including now)? No Transportation Needs Has the lack of Transportation kept you from medical appointments? No In the past 12 months, has the lack of transportation kept you from meetings, work, or from getting things needed for daily living? No Food Insecurity Within the past 12 months, have you worried that your food would run out before you got the money to buy more? No Stress Do you feel stress - tense, restless, nervous, or anxious, or unable to sleep at night because you mind is troubled all the time? Mood stable Referral To Financial Resources: N/A Community Resources: Admission folder given upon admission to PP Unit Social Work: N/A CLP: N/A Medical Information 34 year old admitted for PPROM at 29/4 weeks. delivery. in NICU at [facility]. Discharge Plan Home or Community Resources: Admission folder given upon admission to PP unit Equipment: N/A Education Given: Discussion on the A. B. C's of safe sleep. Always place your baby on his or her back to sleep, use a firm sleep surface and your baby should not sleep in an adult bed, on a couch or chair. Keep soft objects, toys and loose bedding out of your baby's sleep area. Reviewed depression. It is common to have blues. This is a normal response to many of the hormonal changes, stress and lack of sleep that go with raising a and physically recovering from the . Don't hesitate to talk to your provider with any concerns. There are resources in your home going booklet. To help prevent germs from spreading to you and your baby, make sure everyone washes their hands before they handle your . Avoid crowds, and keep infant away from sick people, anyone who is sick with a cough or fever, including family members. Post- warning signs information reviewed with patient per nurse with discharge Additional Information: Patient is independent and has insurance. She is prepared with her baby supplies. To be discharged to home. Denies any concerns at this time. Mental Health Services: Resources in discharge folder Equipment: Developmental Delay: N/A Children's Services: N/A T [facility] 02-22-2024 Miscellaneous Notes Date: 02/22/2024 Name: Charmaine Avila : 1990 [facility] Patient Information Primary Caregiver: Self Accompanied by/Relationship: S/O;Family Marital Status: Single Support System: SO/Family Bahai/Cultural Factors: none Activities of Daily Living Communication: See demographics Living Arrangements Current Residence: Private residence Lives With: S/O; Family Support System: S/O; Family Income Information Income Source: Not Employed Financial Resource Strain How hard is it for you to pay for the very basics like food, housing, medical care and heating? N/A Housing Stability In the last 12 months, was there a time when you did not have a steady place to sleep or slept in a prison (including now)? No Transportation Needs Has the lack of Transportation kept you from medical appointments? No In the past 12 months, has the lack of transportation kept you from meetings, work, or from getting things needed for daily living? No Food Insecurity Within the past 12 months, have you worried that your food would run out before you got the money to buy more? No Stress Do you feel stress - tense, restless, nervous, or anxious, or unable to sleep at night because you mind is troubled all the time? Mood stable Referral To Financial Resources: N/A Community Resources: Admission folder given upon admission to PP Unit Social Work: N/A CLP: N/A Medical Information 34 year old admitted for PPROM at 29/4 weeks. delivery. Infant in NICU at [facility]. Discharge Plan Home or Community Resources: Admission folder given upon admission to PP unit Equipment: N/A Education Given: Discussion on the A. B. C's of safe sleep. Always place your baby on his or her back to sleep, use a firm sleep surface and your baby should not sleep in an adult bed, on a couch or chair. Keep soft objects, toys and loose bedding out of your baby's sleep area. Reviewed depression. It is common to have blues. This is a normal response to many of the hormonal changes, stress and lack of sleep that go with raising a and physically recovering from the . Don't hesitate to talk to your provider with any concerns. There are resources in your home going booklet. To help prevent germs from spreading to you and your baby, make sure everyone washes their hands before they handle your . Avoid crowds, and keep infant away from sick people, anyone who is sick with a cough or fever, including family members. Post- warning signs information reviewed with patient per nurse with discharge Additional Information: Patient is independent and has insurance. She is prepared with her baby supplies. To be discharged to home. Denies any concerns at this time. Mental Health Services: Resources in discharge folder Equipment: Developmental Delay: N/A Children's Services: N/A Patient called for observation of pumping session. Flange size measured during visit. 17mm left nipple, 18 mm right nipple. 22.5 mm flange inserts given. Observation of pumping session during visit. Reviewed feeding plan and goals. Reviewed pump operation, settings frequency and duration. Discussed milk storage guidelines and cleaning of breast pump parts. Towels, basin and dish soap provided to pt for cleaning purposes. All questions answered. Pt verbalizes understanding, and denies questions. Shown section of Taking Care of Yourself and Baby' Booklet. Reviewed milk storage guidelines. Discussed engorgement, plugged ducts and mastitis. Patient encouraged to seek help [facility] for any concerns. phone number and [facility] information shared from booklet. Mom voiced understanding. No further questions. Initial visit with . This is patient's fourth . Patient exclusively pumped for 6 months with her last infant. Patient to be set-up with rental breast pump for home from [facility]. Patient has been pumping and seeing drops of colostrum. Patient states pumping has been uncomfortable. Scabs noted on right areola. Encouraged patient to call before next pumping session for observation and flange sizing. Patient verbalized understanding. Patient shown how to call for LC on wall touch pad. Images from the original note were not included. Patient: Charmaine Avila : 1990 Date of Procedure: 02/20/24 Principal Problem: Premature rupture of membranes Active Problems: Adjustment reaction with anxiety DAVI (generalized anxiety disorder) Pre-operative Diagnosis: 34 y.o. female 28w4d GA Unscheduled Primary PPROM Chorioamnionitis T2DM gHTN Obesity Asthma Desires Permanent Sterilization Post-operative Diagnosis: Same, Hemorrhage Procedure: Primary low transverse section with T-incision, Bilateral Salpingectomy Surgeon: Dr. Marilyn Mendoza Political Geographer(s): Dr. Michael Siegel Anesthesia: Spinal anesthesia, Duramorph, TAP Block Antibiotics: 2 g cefazolin Vaginal Prep (Chlorhexidine): No Total IV Fluids/Blood Products: 2000 ml crystalloid Urine Output: 350 ml Estimated Blood Loss: 1000 ml Quantitative Blood Loss: 1060 ml Drains: Torres Catheter Specimens: Cord Blood, Cord Gases, Bilateral Fallopian Tubes Instrument and Sponge Count: Correct x 2 Complications: hemorrhage secondary to uterine atony and uterine incision requiring T incision Medications: 1g TXA intraoperatively Condition: Stable, transferred to post anesthesia recovery Findings: The uterus, fallopian tubes and ovaries appeared normal. There were no adhesions present. The amnionitic fluid appeared clear. Information: Weight: 1314 g Position: Cephalic Description: Normal INDICATION FOR PROCEDURE: Patient admitted to Labor and Delivery for PPROM. Patient developed fundal tenderness, tachycardia, and increasing WBC concerning for chorioamnionitis. Descision made to proceed with delivery. Patient offered contraction stress test with induction or primary section. Patient elected to proceed with primary section. Patient was consented for a section and was agreeable to blood products as medically indicated. This was an unscheduled section. DESCRIPTION OF PROCEDURE: The patient was taken back to the operating room with running IV fluids. She was given 2 g of Ancef preoperatively for infection prophylaxis. Spinal anesthesia was obtained without difficulty and confirmed to be adequate. She was prepped and draped in the usual sterile fashion, and placed in the supine position with a leftward tilt. Anesthesia was tested and found to be adequate. A Pfannenstiel skin incision was made with the scalpel. The incision was carried through the subcutaneous tissue to the fascia with the Bovie. The fascia was incised in the midline and carried transversely using ga scissors. Kochers were used to grasp the edges of the fascia and sharp and blunt dissection was used to reflect the underlying rectus abdominis muscles. The rectus muscles were in the midline bluntly. The peritoneum was found to be free of adherent bowel and entered bluntly. The peritoneal incision was extended bluntly with good visualization of bladder. The bladder retractor and Swan retractor were placed, and the vesicouterine peritoneum was identified. The lower uterine segment was identified and incised in a low transverse fashion with a scalpel. The hysterotomy was extended bluntly initially and then further extended with bandage scissors. The amniotic cavity was entered and clear amniotic fluid was noted. The fetus was found to be in cephalic presentation. Bladder retractor and Swan retractor were removed. The head was brought to the level of the uterine incision with special care to avoid using the incision as a fulcrum. Fundal pressure was then applied, however the head did not deliver easily. Decision made to make T-incision on the uterus. The infant then delivered without difficulty. The cord was clamped and cut, and the infant was handed off to NICU personnel standing by. IV pitocin was then started. The placenta was removed with gentle traction and fundal pressure. The uterus was exteriorized and wrapped in a wet lap. The uterine cavity was wiped with a dry lap to assure complete removal of placental membranes. The uterus was noted to be atonic and uterine massage was performed. TXA was given. The uterine incision closed with 0 Monocryl suture in a continuous locked suture fashion. The T incision was closed with 0 Monocryl suture in a continuous locked suture fashion. A second imbricating layer was not performed. A figure of eight suture was placed at the right angle of the hysterotomy due to bleeding. The uterine incision was then found to be hemostatic. With the uterine closure complete and hemostasis achieved, attention was turned to the salpingectomy. Tubes and ovaries were inspected and found to be normal. A jose clamp was used to grasp the left fallopian tube and the fimbriated end was confirmed prior to proceeding. A window was made in an avascular plane in the mesosalpinx. A Koki clamp and Bovie were used to dessicate along the mesosalpinx. The vascular pedicles at the fimbriated end and cornua were clamped, cut, and tied with 0 Vicryl suture. The same procedure was performed on the right fallopian tube without difficulty. The posterior cul de sac was cleared of debris. The uterus was returned into the abdominal cavity. The uterine incision was reinspected and adequate hemostasis was again appreciated. The abdominal cavity was cleared of all clots and debris with wet lap sponges. The fascia was closed with 0 Looped PDS suture in a running fashion at both angles and tied in the midline. The incision was irrigated. The subcutaneous layer closure was performed with 3-0 Monocryl suture in a running fashion. The skin was closed with 4-0 Vicryl suture in a subcuticular fashion. Steri strips and a Silverlon bandage were placed over the incision. All counts were correct times two. Patient was transferred to the recovery room in satisfactory stable condition. VTE Prophylaxis: Prophylactic Dosing until Discharge LABOR DELIVERY ??? SCD's ONLY (labor through ambulation) SCD's PLUS Prophylactic Anticoagulation until discharge SCD's PLUS Prophylactic Anticoagulation for 6 weeks SCD's PLUS Therapeutic Anticoagulation for 6 weeks Vaginal Delivery [] BMI >= 40 kg/m2 Delivery All patients Vaginal Delivery [] BMI >= 40 kg/m2 AND [] Antepartum hospitalization >= 72 hours within the past month Delivery 1 Major Risk Factor: [x] BMI >= 35 kg/m2 [] Low Risk Thrombophilia [] PPH+RBCs, IR, or operation [x] Infection+Antibiotics [] Antepartum hospitalization >= 72 hours within the past month [] PMH: Sickle Cell, SLE, Cardiac Dz, Active IBD, Active Cancer, Nephrotic Syndrome OR 2 Minor Risk Factors: [] Multiple gestation [] Age > 40 [] PPH >= 1,000cc [] (+)FMH of VTE [] Smoker [] Preeclampsia [] BMI >= 40 kg/m2 AND [] Low Risk Thrombophilia OR ANY OF THE FOLLOWING: [] High Risk Thrombophilia without prior VTE [] Low Risk Thrombophilia with (+)FMH of VTE [] Any single prior VTE ANY OF THE FOLLOWING: [] Already on LMWH/UFH [] Multiple prior VTE [] High Risk Thrombophilia with prior VTE Low Risk Thrombophilia: FVL (heterozygous), Prothrombin (heterozygous), Protein C, Protein S High Risk Thrombophilia: FVL (homozygous), Prothrombin (homozygous), FVL+Prothrombin (heterozygous), Antithrombin III, APLS MICHAEL SIEGEL, 02/20/2024, 3:05 AM Associated attestation - Marilyn Mendoza MD - 02/20/2024 5:58 AM EDT Procedures or Surgery: I was present for all wheeler elements of the procedure or surgery as described in the resident note. Safety huddle called to proceed with PCD 2/2 chorio, cat II FHT. FHT cat II for tachycardia. Maintains moderate variability. Cervix checked and remains closed. Discussed with Dr Mendoza and patient, offered PATROL SERGEANT to see if pt could tolerate labor. Patient reports she would rather proceed with PCD. Patient was counseled on section and that the risks include but are not limited to infection, damage to visceral and vascular structures, bleeding and need for blood transfusion, and prolonged hospitalization. Patient voiced her understanding of these risks and is accepting of a blood transfusion if medically necessary. All questions were answered and consents were signed. She received zosyn >1 hr ago, will receive ancef for surgical ppx. Primary RN, conveyor line battery charger, OB anesthesia, NICU, and Dr. Mendoza present and in agreement Hospital Day 5; 28/3 weeks today; Mood stable; CLP following; SW in to see patient this afternoon; no needs or concerns for CM at this time; will continue to follow SW consult for resources. Met with pt at bedside. Pt approx 28 wks here for ROM, will be in hospital until delivery. States stressors related to being away from home, over an hour. Partner Adeel at bedside and supportive. Billy has three sons ages 16, 14, 8 who her friend Dior is watching while she is here. States had a 25 wk baby 8 years ago and is familiar with NICU Stay at [facility]. Has gathered many supplies, discussed help after delivery with childrens Sw. Asked about meal passes for partner. Sw provided him with two meal tickets for hospital. Asked about paying for parking, he is in [place] and has been all week. Sw talked to [place] dept who states rate is $7 flat rate no matter how long here. Fob state he can pay that. Pt denied any other needs at this time, Sw remains available if needs arise Problem: Antepartum Goal: Maintain as long as maternal and/or condition is stable Outcome: Progressing Problem: Safety - Adult Goal: Free from fall injury Outcome: Progressing The patient is Moderately Stable - Low risk of patient condition declining or worsening The patient's goals for the shift include remain The clinical goals for the shift include pt will have adeequate glucose control with medications Hospital Day 4; 28/2 weeks today; Mood stable; No concerns or needs voiced at this time The patient is Moderately Stable - Low risk of patient condition declining or worsening The patient's goals for the shift include stay The clinical goals for the shift include stay Over the shift, the patient did not make progress toward the following goals. Barriers to progression include PPROM. Recommendations to address these barriers include continuous assessment of maternal and status.. Date: 02/16/2024 Name: Charmaine Avila : 1990 [facility] Patient Information Primary Caregiver: Self Accompanied by/Relationship: S/O;Family Marital Status: Single Support System: SO/Family Bahai/Cultural Factors: None Activities of Daily Living Communication: See demographics Living Arrangements Current Residence: Private residence Lives With: S/O; Family Support System: S/O; Family Income Information Income Source: Not Employed Financial Resource Strain How hard is it for you to pay for the very basics like food, housing, medical care and heating? N/A Housing Stability In the last 12 months, was there a time when you did not have a steady place to sleep or slept in a prison (including now)? No Transportation Needs Has the lack of Transportation kept you from medical appointments? No In the past 12 months, has the lack of transportation kept you from meetings, work, or from getting things needed for daily living? No Food Insecurity Within the past 12 months, have you worried that your food would run out before you got the money to buy more? No Stress Do you feel stress - tense, restless, nervous, or anxious, or unable to sleep at night because you mind is troubled all the time? Mood stable Referral To Financial Resources: N/A Community Resources: PNU folder given upon admission to PNU Unit Social Work: Yes; Pt would like to discuss resources CLP:Declines at this time Medical Information admitted at 29/4 weeks for PPROM; s/p cerclage removal earlier today; Hx PPROM/PTD; T2DM; tHTN; Hx demise, anxiety, continues on Zoloft; CLP declined at this time per patient; Asthma; Nicotine use Discharge Plan Home or Community Resources: PNU Admission folder given upon admission to unit Equipment: N/A Education Given: PNU admit folder and see Education Tab Additional Information: N/A Mental Health Services: N/A Developmental Delay: N/A Children's Services: N/A Patient with elevated WBC at 16.5 and patient's pulse elevated 100-110s. Patient was significant history of PTL and chorioamnionitis. Due to this, decision made to proceed with cerclage removal. Patient was placed in the dorsal lithotomy position. Dr. Chu at bedside to remove cerclage. Speculum inserted and clear view of blue strings optained. Elevated with long pick ups and left side of suture cut below knot. Cerclage removed in 1 pull. SVE after removal was 0/50/-3. Will continue to monitor for signs of PTL. FHT remains Cat I at this time with moderate variability and accelerations. Pauline Zacarias DO 02/16/2024 10:17 AM Images from the original note were not included. Late note due to patient care. Been in patient's room a number of times this evening. Consented for BTL, form in chart. Patient was complaining of some intermittent cramping but was not requiring pain medications. Cat I FHT. Had rare variable deceleration. Remained reassuring with moderate variability. TOCO adjusted many times. Discussed with patient insulin gtt. Insulin on admisison was 233. Placed on drip and down to 213, 192 [address] Miranda who recommended that if BGT dropped to 175 or lower, then plan for BMZ. Next BGT was elevated at 206. Dr. Miranda updated. Magnesium sulfate running for neuroprotection. Urine output adequate per RN. Discussed that if Cat II FHT, vaginal bleeding or worsening pain, will plan to remove the cerclage. At this time, plan to keep the cerclage in place. NICU consulted. Followup BGT was 206. RN not aware of patient snacking as patient is NPO. Patient has been napping on my exam. Discussed with Dr. Miranda. CMP previously collected noted low NA at 134, normal potassium at 3.8. CO2 slightly decreased at 17. Normal LFTs and Cr. Dr. Miranda recommending Kcl. Reviewed protocol. Recommendation of 20meq of KCL. Confirmed with Pharmacy about running lines and compatible with Magnesium sulfate and D5. Discussed with Dr. Montero of ICU for further BGT recommendations per Dr. Miranda request. Current Insulin GTT had values for >[address] Montero received TDD of insulin and notes that we are likely under giving based on home regimen. He reviewed lab data with normal AG. Recommends new Insulin drip doses: 141-160: 2u 161-180: 4u 181-200 5u >200: 6u and Call MD Next BGT due in five minutes. Will assess. Plan per Dr. Montero that BMZ can safely be given if two consecutive drops on BGTs. Reviewed new information with Dr. Miranda who is in agreement of plan. Appreciate excellent recommendations of Dr. Montero. Vikki Díaz DO 02/16/2024 3:22 AM documented in this encounter [facility] 02-22-2024 Note Department of Obstet rics and Gynecology Delivery Discharge Summary Admission on 02/15/2024 8:51 PM Reason for admission: Premature Prelabor Rupture of Membranes Intrapartum Course: Charmaine Avila is a 34 y.o. at 29w4d who was admitted for PPROM. She was started on latency antibiotics on 02/15/24 and magnesium sulfate for neuroprotection. BMZ was initially deferred in setting of T2DM, poorly controlled on insulin. She was started on insulin drip. BPP was obtained on 02/16/24 and was reassuring 12/30. Cerclage was removed on 02/15 due to leukocytosis and maternal tachycardia. She received BMZ and magnesium sulfate for lung maturity and neuroprotection, respectively. She received ampicillin, azithromycin, and amoxicillin for latency antibiotics. She then developed fundal tenderness and became persistently category II with tachycardia. Decision was made to proceed with section. Surgical Operations & Procedures: Date of delivery: 02/22/2024 Delivery Type: , Low Transverse with T Incision Anesthesia: Spinal anesthesia Laceration(s): NA Delivery Complications: none EBL: 1060 cc Pertinent Findings & Procedures: Information for the patient's : Mingo Avila [[id number]] male 2 lb 14.4 oz (1.314 kg) Apgars: Information for the patient's : Minog Avila [[id number]] Course: Uncomplicated Infant: Male, NICU Blood Type/Rh: O positive Contraception: bilateral salpingectomy : yes VTE Prophylaxis: Not Indicated Meds: Medication List START taking these medications acetaminophen 325 MG tablet Commonly known as: Tylenol Take 2 tablets (650 mg) by mouth every 6 hours as needed for mild pain (1-3) for up to 10 days. docusate sodium 100 MG capsule Commonly known as: Colace Take 1 capsule (100 mg) by mouth 2 times daily for 10 days. ibuprofen 600 MG tablet Take 1 tablet (600 mg) by mouth in the morning and 1 tablet (600 mg) at noon and 1 tablet (600 mg) in the evening and 1 tablet (600 mg) before bedtime. Do all this for 10 days. insulin NPH (Isophane) 100 UNIT/ML injection Commonly known as: HumuLIN N,NovoLIN N Inject 6 Units under the skin every morning AND 10 Units every evening. Do not start before February 23, 2024. Start taking on: February 23, 2024 oxyCODONE 5 MG immediate release tablet Commonly known as: Roxicodone Take 1 tablet (5 mg) by mouth every 6 hours as needed for severe pain (7-10) for up to 5 days. CHANGE how you take these medications insulin lispro 100 UNIT/ML pen injection Commonly known as: HumaLOG KWIKPEN Inject 5 Units under the skin in the morning and 5 Units at noon and 5 Units in the evening. Inject with meals. What changed: how much to take * metFORMIN (OSM) 1000 MG 24 hr tablet Commonly known as: Fortamet What changed: Another medication with the same name was added. Make sure you understand how and when to take each. * metFORMIN XR 500 MG 24 hr tablet Commonly known as: Glucophage-XR Take 2 tablets (1,000 mg) by mouth 2 times daily. Do not crush, chew, or split. What changed: You were already taking a medication with the same name, and this prescription was added. Make sure you understand how and when to take each. sertraline 50 MG tablet Commonly known as: Zoloft Take 3 tablets (150 mg) by mouth Nightly. What changed: medication strength how much to take when to take this * This list has 2 medication(s) that are the same as other medications prescribed for you. Read the directions carefully, and ask your doctor or other care provider to review them with you. CONTINUE taking these medications insulin glargine 100 UNIT/ML injection Commonly known as: Lantus omeprazole OTC 20 MG EC tablet Commonly known as: PriLOSEC OTC 1 PO PX ALLERGY RELIEF D (LORATID) PO STOP taking these medications aspirin 81 MG EC tablet Where to Get Your Medications These medications were sent to [facility] [address] [place] [address] Hours: Thursday to Thursday 10 am to 6 pm acetaminophen 325 MG tablet docusate sodium 100 MG capsule ibuprofen 600 MG tablet insulin lispro 100 UNIT/ML pen injection insulin NPH (Isophane) 100 UNIT/ML injection metFORMIN XR 500 MG 24 hr tablet oxyCODONE 5 MG immediate release tablet sertraline 50 MG tablet Activity: Activity as tolerated Diet: Regular diet If a patient meets criteria for hypertension, make sure the following are done prior to discharge: [x] Order a blood pressure kit through [facility] (or the patient's own pharmacy on the weekend) [x] Order the blood pressure log through [facility] [x] Place a telephone encounter for a 72 hour blood pressure check. Specify that this will be a virtual visit. [x] Include blood pressure dot phrase (.sumobhypertension) in discharge instructions [] Check here if the patient does NOT meet criter (more content not included)... [facility] 02-22-2024 Hospital course Narrative Images from the original note were not included. Department of Obstetrics and Gynecology Delivery Discharge Summary Admission on 02/15/2024 8:51 PM Reason for admission: Premature Prelabor Rupture of Membranes Intrapartum Course: Charmaine Avila is a 34 y.o. at 29w4d who was admitted for PPROM. She was started on latency antibiotics on 02/15/24 and magnesium sulfate for neuroprotection. BMZ was initially deferred in setting of T2DM, poorly controlled on insulin. She was started on insulin drip. BPP was obtained on 02/16/24 and was reassuring 12/30. Cerclage was removed on 02/15 due to leukocytosis and maternal tachycardia. She received BMZ and magnesium sulfate for lung maturity and neuroprotection, respectively. She received ampicillin, azithromycin, and amoxicillin for latency antibiotics. She then developed fundal tenderness and became persistently category II with tachycardia. Decision was made to proceed with section. Surgical Operations & Procedures: Date of delivery: 02/22/2024 Delivery Type: , Low Transverse with T Incision Anesthesia: Spinal anesthesia Laceration(s): NA Delivery Complications: none EBL: 1060 cc Pertinent Findings & Procedures: Information for the patient's : Mingo Avila [[id number]] male 2 lb 14.4 oz (1.314 kg) Apgars: Information for the patient's : Mingo Avila [[id number]] Course: Uncomplicated Infant: Male, NICU Blood Type/Rh: O positive Contraception: bilateral salpingectomy : yes VTE Prophylaxis: Not Indicated Meds: Medication List START taking these medications acetaminophen 325 MG tablet Commonly known as: Tylenol Take 2 tablets (650 mg) by mouth every 6 hours as needed for mild pain (1-3) for up to 10 days. docusate sodium 100 MG capsule Commonly known as: Colace Take 1 capsule (100 mg) by mouth 2 times daily for 10 days. ibuprofen 600 MG tablet Take 1 tablet (600 mg) by mouth in the morning and 1 tablet (600 mg) at noon and 1 tablet (600 mg) in the evening and 1 tablet (600 mg) before bedtime. Do all this for 10 days. insulin NPH (Isophane) 100 UNIT/ML injection Commonly known as: HumuLIN N,NovoLIN N Inject 6 Units under the skin every morning AND 10 Units every evening. Do not start before February 23, 2024. Start taking on: February 23, 2024 oxyCODONE 5 MG immediate release tablet Commonly known as: Roxicodone Take 1 tablet (5 mg) by mouth every 6 hours as needed for severe pain (7-10) for up to 5 days. CHANGE how you take these medications insulin lispro 100 UNIT/ML pen injection Commonly known as: HumaLOG KWIKPEN Inject 5 Units under the skin in the morning and 5 Units at noon and 5 Units in the evening. Inject with meals. What changed: how much to take * metFORMIN (OSM) 1000 MG 24 hr tablet Commonly known as: Fortamet What changed: Another medication with the same name was added. Make sure you understand how and when to take each. * metFORMIN XR 500 MG 24 hr tablet Commonly known as: Glucophage-XR Take 2 tablets (1,000 mg) by mouth 2 times daily. Do not crush, chew, or split. What changed: You were already taking a medication with the same name, and this prescription was added. Make sure you understand how and when to take each. sertraline 50 MG tablet Commonly known as: Zoloft Take 3 tablets (150 mg) by mouth Nightly. What changed: medication strength how much to take when to take this * This list has 2 medication(s) that are the same as other medications prescribed for you. Read the directions carefully, and ask your doctor or other care provider to review them with you. CONTINUE taking these medications insulin glargine 100 UNIT/ML injection Commonly known as: Lantus omeprazole OTC 20 MG EC tablet Commonly known as: PriLOSEC OTC 1 PO PX ALLERGY RELIEF D (LORATID) PO STOP taking these medications aspirin 81 MG EC tablet Where to Get Your Medications These medications were sent to [facility] [address] [place] [address] Hours: Thursday to Thursday 10 am to 6 pm acetaminophen 325 MG tablet docusate sodium 100 MG capsule ibuprofen 600 MG tablet insulin lispro 100 UNIT/ML pen injection insulin NPH (Isophane) 100 UNIT/ML injection metFORMIN XR 500 MG 24 hr tablet oxyCODONE 5 MG immediate release tablet sertraline 50 MG tablet Activity: Activity as tolerated Diet: Regular diet If a patient meets criteria for hypertension, make sure the following are done prior to discharge: [x] Order a blood pressure kit through [facility] (or the patient's own pharmacy on the weekend) [x] Order the blood pressure log through [facility] [x] Place a telephone encounter for a 72 hour blood pressure check. Specify that this will be a virtual visit. [x] Include blood pressure dot phrase (.sumobhypertension) in discharge instructions [] Check here if the patient does NOT meet criteria for hypertension Follow up Care: Follow up BP check on 02/25; incision check within 1 week; visit on 03/24 Condition on discharge: Stable Discharge to: Home Discharge date: 02/22/2024 Discharge Dx: Status post section Instructions to Patient:: Pelvic Rest (no intercourse, tampons, douching, etc) x 6 weeks Specific discharge instruction printed Premature rupture of membranes [O42.90] Patient Active Problem List Diagnosis Premature rupture of membranes Adjustment reaction with anxiety DAVI (generalized anxiety disorder) Comments: Home care, Follow-up care and control were reviewed. Signs and symptoms of mastitis and Post Depression were reviewed. The patient is to notify her physician if any of these occur. Ramirez Hammonds DO on 02/22/2024 at 5:58 PM documented in this encounter [facility] 02-22-2024 Note PHYSICAL THERAPY [facility] Initial Evaluation Name/MRN: Charmaine Avila ([id number]) Evaluation Date: 02/22/2024 Date of : 1990 Admission Date: 02/15/2024 8:51 PM Age: 34 y.o. Room/Bed: [facility]/4127 A Discharge Recommendation: Home with assist PRN (outpatient pelvic floor PT) Equipment Needed: No Assessment IMPRESSION: PT Eval completed. Reviewed restrictions with patient post-op, along with techniques to reduce strain on incision and pain post-op. Pt reporting improved ease and comfort with strategies for mobility listed below. Pt will have support from S.O. and family at home. Recommend Outpatient Pelvic Floor PT. No other concerns voiced at this time, will sign off. Admitting Diagnosis: 02/19 PLTCS Prognosis: excellent Performance Deficits /Impairments: Increased Pain Decision Making: Low Complexity Subjective Patient sitting in chair. She is agreeable to PT. Pain: Patient reports some discomfort at surgical site during sit to/from stand. Past Medical History: Past Medical History: Diagnosis Date Anxiety Asthma Atrial fibrillation (HCC) Diabetes mellitus (HCC) Retained placenta Past Surgical History: Past Surgical History: Procedure Laterality Date CHOLECYSTECTOMY DILATION AND CURETTAGE OF UTERUS Admission Diagnosis: Patient Active Problem List Diagnosis Date Noted Adjustment reaction with anxiety 02/18/2024 DAVI (generalized anxiety disorder) 02/18/2024 Premature rupture of membranes 02/15/2024 Medical Precautions: No active isolations Proper PPE donned/doffed in accordance with facility standards. Fall Risk: Real Fall Risk Score: 15 (Low Risk) Precautions/Restrictions: Braces or Orthoses: abdominal binder Family/Caregiver Present: yes Overall Cognitive Status: WNL Overall Orientation Status: Oriented x4 Vision: not assessed this session Hearing: normal Social/Functional History Patient admitted from home. Lives With: Spouse Type of Home: mobile home Home Layout: Single Level Home Home Access: Stairs to Enter Prior Level of Function ADL Assistance: Independent Ambulation Assistance: Independent Transfer Assistance: Independent Objective Lower Extremity Assessment AROM: WNL PROM: Not assessed this session Strength: WFL Sensation: Not assessed this session Balance: Not assessed this session Bed Mobility: NT. Patient reports she is completing independently. Patient educated on splinting and technique for supine to/from sit. Transfers Sit to stand: Modified Independent Stand to sit: Modified Independent Patient uses arms to assist and moves slowly due to post-sx pain. Ambulation Ambulation 1 Assistive device(s) used: None Assist level: Independent Distance (ft): 140 Quality of gait: No gait deviations Exercises Outcome Measures AM-PAC How much HELP from another person do you currently need Turning from your back to your side while in a flat bed without using bedrails?: None Moving from lying on your back to sitting on the side of a flat bed without using bedrails?: None Moving to and from a bed to a chair (including a wheelchair)?: None Standing up from a chair using your arms (wheelchair or bedside chair)?: None Walking in a hospital room?: None Stair climbing assessed?: No AM-PAC Inpatient Mobility Raw Score (No Stairs) : 20 JH-HLM -HLM Score: Walked 25 ft or more (i.e. walked outside of room) Plan No skilled acute PT indicated at this time. Please reconsult should changes occur. Safety/Education Safety Safety Devices in place: call light within reach and left in chair Restraints: No Education Education Given To: patient Education Provided: "Recovery After Section Surgery" booklet delivered to room. Included information on: Benefits of regular ambulation post-op . Use of IS and breathe work with activity (exhale on exertion). Stair navigation. Log rolling for bed mobility. Use and benefits of abdominal binder and donning over incision. Splinting/bracing with a pillow or weighted blanket for activities with increased abdominal pressure (ex: coughing, sneezing, bowel movements). Lifting restriction post-op and limits on functional mobility. Pelvic Floor Physical Therapy handout included. Education Method: Verbal, Demonstration, and Printed Information Barriers to Learning: None Education Outcome: Verbalized Understanding Goals Patient Stated Goal: NA Therapy Time Individual Co-treatment Time In 1040 Time Out 1058 Minutes 18 Anayeli Cox PT Patient's Physical Therapy Plan of Care supervision is transferred to a [facility] Physical Therapist. Goals and/or treatment plan was established in collaboration with patient/family/other representatives. [facility] 02-22-2024 History of Present illness Narrative Images from the original note were not included. PHYSICAL THERAPY [facility] Initial Evaluation Name/MRN: Charmaine Avila ([id number]) Evaluation Date: 02/22/2024 Date of : 1990 Admission Date: 02/15/2024 8:51 PM Age: 34 y.o. Room/Bed: [facility]/4127 A Discharge Recommendation: Home with assist PRN (outpatient pelvic floor PT) Equipment Needed: No Assessment IMPRESSION: PT Eval completed. Reviewed restrictions with patient post-op, along with techniques to reduce strain on incision and pain post-op. Pt reporting improved ease and comfort with strategies for mobility listed below. Pt will have support from S.O. and family at home. Recommend Outpatient Pelvic Floor PT. No other concerns voiced at this time, will sign off. Admitting Diagnosis: 02/19 PLTCS Prognosis: excellent Performance Deficits /Impairments: Increased Pain Decision Making: Low Complexity Subjective Patient sitting in chair. She is agreeable to PT. Pain: Patient reports some discomfort at surgical site during sit to/from stand. Past Medical History: Past Medical History: Diagnosis Date Anxiety Asthma Atrial fibrillation (HCC) Diabetes mellitus (HCC) Retained placenta Past Surgical History: Past Surgical History: Procedure Laterality Date CHOLECYSTECTOMY DILATION AND CURETTAGE OF UTERUS Admission Diagnosis: Patient Active Problem List Diagnosis Date Noted Adjustment reaction with anxiety 02/18/2024 DAVI (generalized anxiety disorder) 02/18/2024 Premature rupture of membranes 02/15/2024 Medical Precautions: No active isolations Proper PPE donned/doffed in accordance with facility standards. Fall Risk: Real Fall Risk Score: 15 (Low Risk) Precautions/Restrictions: Braces or Orthoses: abdominal binder Family/Caregiver Present: yes Overall Cognitive Status: WNL Overall Orientation Status: Oriented x4 Vision: not assessed this session Hearing: normal Social/Functional History Patient admitted from home. Lives With: Spouse Type of Home: mobile home Home Layout: Single Level Home Home Access: Stairs to Enter Prior Level of Function ADL Assistance: Independent Ambulation Assistance: Independent Transfer Assistance: Independent Objective Lower Extremity Assessment AROM: WNL PROM: Not assessed this session Strength: WFL Sensation: Not assessed this session Balance: Not assessed this session Bed Mobility: NT. Patient reports she is completing independently. Patient educated on splinting and technique for supine to/from sit. Transfers Sit to stand: Modified Independent Stand to sit: Modified Independent Patient uses arms to assist and moves slowly due to post-sx pain. Ambulation Ambulation 1 Assistive device(s) used: None Assist level: Independent Distance (ft): 140 Quality of gait: No gait deviations Exercises Outcome Measures AM-PAC How much HELP from another person do you currently need Turning from your back to your side while in a flat bed without using bedrails?: None Moving from lying on your back to sitting on the side of a flat bed without using bedrails?: None Moving to and from a bed to a chair (including a wheelchair)?: None Standing up from a chair using your arms (wheelchair or bedside chair)?: None Walking in a hospital room?: None Stair climbing assessed?: No AM-PAC Inpatient Mobility Raw Score (No Stairs) : 20 JH-HLM JH-HLM Score: Walked 25 ft or more (i.e. walked outside of room) Plan No skilled acute PT indicated at this time. Please reconsult should changes occur. Safety/Education Safety Safety Devices in place: call light within reach and left in chair Restraints: No Education Education Given To: patient Education Provided: "Recovery After Section Surgery" booklet delivered to room. Included information on: Benefits of regular ambulation post-op . Use of IS and breathe work with activity (exhale on exertion). Stair navigation. Log rolling for bed mobility. Use and benefits of abdominal binder and donning over incision. Splinting/bracing with a pillow or weighted blanket for activities with increased abdominal pressure (ex: coughing, sneezing, bowel movements). Lifting restriction post-op and limits on functional mobility. Pelvic Floor Physical Therapy handout included. Education Method: Verbal, Demonstration, and Printed Information Barriers to Learning: None Education Outcome: Verbalized Understanding Goals Patient Stated Goal: NA Therapy Time Individual Co-treatment Time In 1040 Time Out 1058 Minutes 18 Anayeli Cox PT Patient's Physical Therapy Plan of Care supervision is transferred to a [facility] Physical Therapist. Goals and/or treatment plan was established in collaboration with patient/family/other representatives. Department of Internal Medicine Division of Endocrinology, Diabetes, & Metabolism Endocrinology Note Patient Name: Charmaine Avila : 1990 AGE: 34 y.o. [facility]: [facility] A Admission Date: 02/15/2024 Visit Date: 02/22/2024 Reason for Endocrine Consult: DM2 Provider/Team Requesting Consult: OB PCP: No primary care provider on file. 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 prior to preg S/P C/S 02/19/27 28w4d due to chorio Steroid induced hyperglycemia PLAN: Continue NPH 6 units q am Continue NPH 10 units q hs Continue Humalog to 5 units tid meals Continue Humalog Low SS Will need insulin on discharge with added home metformin ICU goal <180 GMF goal <150 POCT BG ACHS Hypoglycemia management per protocol Carb controlled diet ANTICIPATED ENDOCRINE HOME GOING RECOMMENDATIONS: Optimized for Discharge from Endocrine standpoint: yes Home Going Endocrine Rx Recommendations-- Continue NPH insulin pens at current doses Continue Humalog insulin pens at current doses Latrice pen needles [id number] Alcohol pads Resume home metformin XR 1g po bid Do not resume Trulicity Has Dexcom uses intermittently due to issues with site reaction to adhesive--not currently using Outpt Follow Up-- [facility] SUBJECTIVE/HPI: CHIEF COMPLAINT: Chief Complaint Patient presents with Rupture of Membranes Patient admitted after PPROM, received Betamethasone x 2 prior to delivery and received Decadron in OR Patient sitting at side of bed states she wants to go see baby at NICU at [facility] after her shower, baby was not doing well yesterday, but improved now Patient states pain is managed Denies N/V Appetite is good BG this am checked after start of BF--will make insulin adjustments Ate BF had cream of wheat, BF stack Interval events: Bgl below currently stable Vss ra Baby doing well in NICU at [facility] She will breast and bottle feed Patient eating well, denies nausea vomiting abdominal pain Will need insulin on discharge, and careful blood sugar monitoring Will resume home metformin, stop Trulicity for home Type of DM: hx GDM all preg then DM2 2016 was on Trulicity and metformin August or September of this year off all meds and considered in remission--insulin started with planned preg Onset of DM: 2016 Home DM Medication Regimen: NPH , Humalog 26 units before meals and metformin 1000 mg BID DM control (last A1c/glucose data): Lab Results Component Value Date HGBA1C 7.4 (H) 02/15/2024 Denies retinopathy, neuropathy, nephropathy, CAD Glucose Date/Time Value Ref Range Status 02/22/2024 07:20 AM 182 (H) 70 - 100 mg/dL Final 02/21/2024 09:07 PM 230 (H) 70 - 100 mg/dL Final 02/21/2024 05:51 PM 186 (H) 70 - 100 mg/dL Final 02/21/2024 12:23 PM 151 (H) 70 - 100 mg/dL Final 02/21/2024 07:25 AM 154 (H) 70 - 100 mg/dL Final 02/20/2024 09:38 PM 207 (H) 70 - 100 mg/dL Final Review of Systems ROS negative except for those mentioned in HPI. OBJECTIVE: Vitals: 02/21/24 0316 02/21/24 0754 02/21/24 1951 02/22/24 0749 BP: (!) 123/53 124/68 (!) 130/58 136/78 BP Location: Right arm Left arm Patient Position: Lying Lying Pulse: 68 84 85 92 Resp: 18 16 18 18 Temp: 36.2 C (97.2 F) 36.2 C (97.1 F) 36.6 C (97.9 F) 36.9 C (98.5 F) TempSrc: Temporal Temporal Temporal Temporal SpO2: 98% 97% 96% 97% Weight: Height: Physical Exam Vitals reviewed. Constitutional: General: She is not in acute distress. Appearance: Normal appearance. She is obese. HENT: Head: Normocephalic. Eyes: Pupils: Pupils are equal, round, and reactive to light. Cardiovascular: Rate and Rhythm: Normal rate and regular rhythm. Pulses: Normal pulses. Heart sounds: Normal heart sounds. Pulmonary: Effort: Pulmonary effort is normal. Breath sounds: Normal breath sounds. Abdominal: General: Bowel sounds are normal. Musculoskeletal: General: No swelling. Normal range of motion. Cervical back: Normal range of motion. Skin: General: Skin is warm and dry. Neurological: Mental Status: She is alert and oriented to person, place, and time. Psychiatric: Mood and Affect: Mood normal. Behavior: Behavior normal. 24 hour intake/output:No intake or output data in the 24 hours ending 02/22/24 1057 Diet: Adult diet Regular Medications (as per EMR): HomeMeds: Current Outpatient Medications Medication Instructions aspirin 81 mg, Oral, Daily insulin glargine (LANTUS) 25 Units, SubCUTAneous, Nightly Insulin Lispro (HUMALOG) 24 Units, SubCUTAneous, 3 times daily with meals Loratadine-Pseudoephedrine (PX ALLERGY RELIEF D, LORATID, PO) Oral metFORMIN (OSM) (FORTAMET) 1,000 mg, Oral, 2 times daily with meals, Do not crush, chew, or split. omeprazole OTC (PRILOSEC OTC) 20 mg, Oral, Daily before breakfast, Do not crush, chew, or split. MV-Min-Fe Fum-FA-DHA ( 1 PO) Oral sertraline (ZOLOFT) 100 mg, Oral, Daily Scheduled Meds:enoxaparin, 60 mg, SubCUTAneous, Daily ferrous sulfate, 325 mg, Oral, BID WC ibuprofen, 600 mg, Oral, q6h influenza, 0.5 mL, IntraMUSCular, Once insulin lispro, 0-6 Units, SubCUTAneous, TID WC insulin lispro, 5 Units, SubCUTAneous, TID WC insulin NPH, 10 Units, SubCUTAneous, Nightly insulin NPH, 6 Units, SubCUTAneous, q AM measles, mumps and rubella, 0.5 mL, SubCUTAneous, Prior to discharge nicotine, 1 patch, TransDERmal, Daily Followed by [START ON 03/29/2024] nicotine, 1 patch, TransDERmal, Daily Followed by [START ON 04/12/2024] nicotine, 1 patch, TransDERmal, Daily vitamin, 1 tablet, Oral, Daily sertraline, 150 mg, Oral, Nightly sodium chloride 0.9%, 5-40 mL, IntraVENous, 2 times per day Tdap-Dtap, 0.5 mL, IntraMUSCular, Prior to discharge Continuous Infusions: PRN Meds:PRN medications: acetaminophen, dextrose, dextrose, diphenhydrAMINE, docusate sodium, famotidine, glucagon (rDNA), glucose, HYDROmorphone OR HYDROmorphone, hydrOXYzine pamoate, lanolin, naloxone, ondansetron ODT OR ondansetron, oxyCODONE OR oxyCODONE, simethicone, sodium chloride, sodium chloride 0.9% Diagnostic Workup: I reviewed pertinent Laboratory results, Radiographic results, and Other Clinical Notes at the time of today's encounter. Labs: No components found for: "LABA1C" No components found for: "EAG" No results found for: "NA", "K", "CL", "CO2", "BUN", "CREATININE", "GLUCOSE", "CALCIUM" No results found for: "CHLPL", CHOL No results found for: "TRIG" No results found for: "HDL" No results found for: "LDLCALC" No results found for: "VLDL" No results found for: CHOLHDLRATIO No results found for: "ESCF52FFL" No results found for: "TSH", "S2JDJNE", "H6YZNGP", "THYROIDAB" Radiology reportsas per the Radiologist Radiology: POCT glucose meter Result Date: 02/16/2024 Performed by: [email or web address] [facility] [place] [facility], [address] [place] [address], [place] [address] CLIA ID: [id number] POCT glucose meter Result Date: 02/16/2024 Performed by: [email or web address] [place] [facility], [address] [place] [address], [place] [address] CLIA ID: [id number] POCT glucose meter Result Date: 02/16/2024 Performed by: [email or web address] [place] [facility], [address] [place] [address], [place] [address] CLIA ID: [id number] POCT glucose meter Result Date: 02/16/2024 Performed by: [email or web address] [place] [facility], [address] [place] [address], [place] [address] CLIA ID: [id number] POCT glucose meter Result Date: 02/16/2024 Performed by: [facility], [address] [place] [address], [place] [address] CLIA ID: [id number] POCT glucose meter Result Date: 02/16/2024 Performed by: [facility], [address] [place] [address], [place] [address] CLIA ID: [id number] biophysical profile wo non stress testing Result Date: 02/16/2024 OBSTETRICS REPORT (Signed Final 02/16/2024 12:48 pm) PATIENT INFO: ID #: [id number] : [birth year] (34 yrs)(F) Name: CHARMAINE AVILA Visit Date: 02/16/2024 08:45 am PERFORMED BY: Attending: Nicol Interiano MD Performed By: Chiquita Hastings Referred By: LARS LEO MD Location: [facility] Visit Type: Inpatient - Hospital SERVICE(S) PROVIDED: BORIS w/out NST [id number] INDICATIONS: Premature rupture of membranes, O42.90 unspecified as to length of time between rupture and onset of labor, unspecified weeks of gestation Obesity AMA Diabetes Cerclage [facility] Patient (Growth 02/14) VITAL SIGNS: Weight (lb): 245 Height: 5'8" BMI: 37.25 EVALUATION: Num Of Fetuses: 1 Heart Rate(bpm): 142 Cardiac Activity: Regular rhythm Lie: Longitudinal Presentation: Cephalic Placenta: Anterior Amniotic Fluid TRACEY FV: Within normal limits TRACEY Sum(cm) %Tile Largest Pocket(cm) 7.7 < 3 4 RUQ(cm) RLQ(cm) LUQ(cm) LLQ(cm) 2.9 0 4 0.8 BIOPHYSICAL EVALUATION: Amniotic F.V: Within normal limits F. Tone: Observed F. Movement: Observed Score: 12/30 F. Breathing: Observed BIOMETRY: GESTATIONAL AGE: Clinical LEELA: 28w 0d LEELA: 05/10/24 Best: 28w 0d Det. By: Clinical LEELA LEELA: 05/10/24 Nicol Interiano MD Electronically Signed Final Report 02/16/2024 12:48 pm - [place]ujano live intrauterine at 28w 0d. - The amniotic fluid index is 7.7cm, which is within normal limits. - Reassuring biophysical profile, 12/30. -Cephalic presentation noted today. An anatomy scan has previously been performed at [facility] and she actually had a scan yesterday showing overgrowth and upper limits normal TRACEY at 23 cm see IP note from today Ultrasound is not diagnostic of chromosomal aneuploidy and does not detect all subtle defects. Normal ultrasound findings do not guarantee normal outcomes. POCT glucose meter Result Date: 02/16/2024 Performed by: [facility], [address] [place] [address] CLIA ID: [id number] POCT glucose meter Result Date: 02/16/2024 Performed by: [facility], [address] [place] [address] CLIA ID: [id number] POCT glucose meter Result Date: 02/16/2024 Performed by: [facility], [address] [place] [address] CLIA ID: [id number] POCT glucose meter Result Date: 02/16/2024 Performed by: [facility], [address] [place] [address] [place] [address] CLIA ID: [id number] POCT glucose meter Result Date: 02/16/2024 Performed by: [facility], [address] [place] [address] [place] [address] CLIA ID: [id number] POCT glucose meter Result Date: 02/16/2024 Performed by: [facility], [address] [place] [address] CLIA ID: [id number] POCT glucose meter Result Date: 02/16/2024 Performed by: [facility], [address] [place] [address] [place] [address] CLIA ID: [id number] POCT glucose meter Result Date: 02/16/2024 Performed by: [facility], [address] [place] [address] CLIA ID: [id number] POCT glucose meter Result Date: 02/16/2024 Performed by: [facility], [address] [place] [address] CLIA ID: [id number] POCT glucose meter Result Date: 02/16/2024 Performed by: [facility], [address] [place] [address] CLIA ID: [id number] POCT glucose meter Result Date: 02/16/2024 Performed by: [facility], [address] [place] [address] CLIA ID: [id number] POCT glucose meter Result Date: 02/16/2024 Performed by: [facility], [address] [place] [address] CLIA ID: [id number] POCT glucose meter Result Date: 02/15/2024 Performed by: [facility], [address] [place] [address] CLIA ID: [id number] POCT glucose meter Result Date: 02/15/2024 Performed by: [facility], [address] [place] [address] CLIA ID: [id number] History/Other: Past Medical History: Past Medical History: Diagnosis Date Anxiety Asthma Atrial fibrillation (HCC) Diabetes mellitus (HCC) Retained placenta Past Surgical History: Past Surgical History: Procedure Laterality Date CHOLECYSTECTOMY DILATION AND CURETTAGE OF UTERUS Allergy(ies): Allergies Allergen Reactions Codeine jittery Nubain [Nalbuphine] Nausea Only Percocet [Oxycodone-Acetaminophen] Nausea Only Family History: No family history on file. Social History: Social History Tobacco Use Smoking status: Every Day Current packs/day: 0.50 Types: Cigarettes Smokeless tobacco: Never Substance Use Topics Alcohol use: Not Currently Drug use: Not Currently Portions of the information within this encounter were entered using an electronic dictation system. Best attempts were made to edit/proofread the information prior to note completion. Despite the review of information, some errors may remain. If there are questions related to the information contained within the note please contact the signing physician directly. I spent 15 minutes with the pt which involved coordination of care, medical evaluation, review of records, and/or counseling of the pt regarding his/her condition/disease state/prognosis on the date of this note. Associated attestation - Jyoti Wiseman MD - 02/22/2024 11:29 AM EDT I have personally performed a face to face diagnostic evaluation on this patient. In addition, I have reviewed the resident's/SHREDDED FILLER CUTTER OPERATOR/EVP STRATEGY's care plan and agree with those findings I have performed a substantive portion of the the medical decision making. My findings are as follows: Denies complaints Variable BG but reasonable Vitals: BP 136/78 Pulse 92 Temp 36.9 C (98.5 F) (Temporal) Resp 18 Ht 5' 8" (1.727 m) Wt 245 lb (111 kg) SpO2 97% Yes Comment: in NICU at [facility] BMI 37.25 kg/m Constitutional: Well developed Eyes: Conjunctiva clear, Pupils equal Neck: No masses, No thyromegaly Respiratory: No respiratory distress Cardiovascular System: No lower extremity edema Abdomen: obese Psychiatric: Conscious, alert, oriented to time, place and person A/P Type 2 diabetes with hyperglycemia without long-term insulin use. Patient was on insulin during Obesity Body mass index is 37.25 kg/m . Steroid-induced hyperglycemia: Received steroids during and after delivery Continue NPH 6 units every morning and 10 units at bedtime Continue Humalog 5 units before meals with correction Patient can be discharged on current insulin doses along with metformin extended release 500 mg 2 tablets twice a day. Hopefully insulin requirements will decrease so she was instructed to follow-up closely with her seasonal greenery bundler Will avoid Trulicity for now because patient is planning for breast-feeding Patient was instructed to monitor blood glucose readings carefully after discharge I spent 35 minutes with the pt which involved in coordination of care, medical evaluation, review of records, and/or counseling of the pt regarding his/her condition/disease state/prognosis on the date of this note. Old records including available PCP, ED notes and or other specialists notes are reviewed. LABs and/or imaging are reviewed as detailed in the resident's/SHREDDED FILLER CUTTER OPERATOR/EVP STRATEGY's note Images from the original note were not included. Note- POST OPERATIVE DAY # 2 Charmaine Avila is a 34 y.o. who was seen & examined today. Her was complicated by: Patient Active Problem List Diagnosis Premature rupture of membranes Adjustment reaction with anxiety DAVI (generalized anxiety disorder) Today she is doing well without any chief complaint. Her lochia is light. She denies Headache, Chest Pain, Vision Changes, and Shortness of Breath. She is ambulating well. Flatus present. Bowel movement present. Voiding spontaneously . She is tolerating solids. Pain is controlled yes. Vital Signs: Vitals: 02/21/24 0020 02/21/24 0316 02/21/24 0754 02/21/241950 BP: 121/75 (!) 123/53 124/68 (!) 130/58 BP Location: Right arm Right arm Left arm Patient Position: Lying Lying Lying Pulse: 81 68 84 85 Resp: 18 18 16 18 Temp: 36.3 C (97.3 F) 36.2 C (97.2 F) 36.2 C (97.1 F) 36.6 C (97.9 F) TempSrc: Temporal Temporal Temporal Temporal SpO2: 100% 98% 97% 96% Weight: Height: Urine Input & Output last 24hrs: No intake or output data in the 24 hours ending 02/22/24 0552 Physical Exam: GENERAL APPEARANCE: alert, well appearing, in no apparent distress ABDOMEN : benign, appropriately tender postoperatively, hernia appreciated, soft, no guarding, no rebound EXTREMITIES: no redness or tenderness in the calves or thighs, no edema NEUROLOGIC: alert, oriented, normal speech, no focal findings or movement disorder noted UTERUS : normal size, well involuted, firm, non-tender Desc; incision: Silverlon dressing in place Labs: Lab Results Component Value Date WBC 17.4 (H) 02/19/2024 HGB 10.6 (L) 02/21/2024 HCT 33.1 (L) 02/19/2024 MCV 85.1 02/19/2024 PLT 202 02/19/2024 LABOR DELIVERY ??? SCD's ONLY (labor through ambulation) SCD's PLUS Prophylactic Anticoagulation until discharge SCD's PLUS Prophylactic Anticoagulation for 6 weeks SCD's PLUS Therapeutic Anticoagulation for 6 weeks Vaginal Delivery [] BMI >= 40 kg/m2 Delivery All patients Vaginal Delivery [] BMI >= 40 kg/m2 AND [] Antepartum hospitalization >= 72 hours within the past month Delivery 1 Major Risk Factor: [x] BMI >= 35 kg/m2 [] Low Risk Thrombophilia [] PPH+RBCs, IR, or operation [x] Infection+Antibiotics [] Antepartum hospitalization >= 72 hours within the past month [] PMH: Sickle Cell, SLE, Cardiac Dz, Active IBD, Active Cancer, Nephrotic Syndrome OR 2 Minor Risk Factors: [] Multiple gestation [] Age > 40 [] PPH >= 1,000cc [] (+)FMH of VTE [] Smoker [] Preeclampsia [] BMI >= 40 kg/m2 AND [] Low Risk Thrombophilia OR ANY OF THE FOLLOWING: [] High Risk Thrombophilia without prior VTE [] Low Risk Thrombophilia with (+)FMH of VTE [] Any single prior VTE ANY OF THE FOLLOWING: [] Already on LMWH/UFH [] Multiple prior VTE [] High Risk Thrombophilia with prior VTE Low Risk Thrombophilia: FVL (heterozygous), Prothrombin (heterozygous), Protein C, Protein S High Risk Thrombophilia: FVL (homozygous), Prothrombin (homozygous), FVL+Prothrombin (heterozygous), Antithrombin III, APLS Assessment/Plan: Charmaine Avila is a 34 y.o. POD # 2 s/p PLTCS + T Incision + Bilateral Salpingectomy Care - Doing well, VSS - Male, NICU [place] - both, breast and bottle feeding - Contraception: s/p bilateral salpingectomy - Encourage ambulation and use of incentive spirometer - D/C torres catheter and saline lock IV on POD #1 - Postop Hb 10.6 - VTE Prophylaxis: Prophylactic Dosing until Discharge Chorioamnionitis -S/p Zosyn x2 -No fundal tenderness -VSS, afebrile T2DM -Endocrinology following and managing -Current meds: NPH 11/01, log , low dose SSI -BGTs remain elevated, 230 last night Hx Hernia -Known hernia -Mildly tender to palpation -Has been passing gas and had bowel movement yesterday; no N/V gHTN -PreE labs wnl -BP trending normotensive -Asx this AM Disposition: Continue current care Based on my clinical assessment, this patient is safe for self discharge (does not need transport by wheelchair) if she so chooses. Provider's Name: DO Ramirez Markham Calistachester Hammonds DO 02/22/2024, 5:52 AM Associated attestation - Katey Leggett DO - 02/22/2024 12:10 PM EDT Hospital Care (Independent): I independently saw and evaluated the patient. I agree with the findings and plan of care as documented in the resident's note. Ms. Avila is a 34yo POD#2 s/p primary with inverted T incision + BS at 28w4d due to chiorioamnionitis and Cat 2 FHT. Patient is overall doing well and desires discharge as baby is at [facility]. Notes that baby is doing well, being treated for Ecoli sepsis. Patient states that pain is under control, has voided, had BM x 2. Notes that Endocrinology has been by and states she is stable for discharge from their standpoing. VSS. Gen: NAD alert and oriented Agree with physical exam findings as noted Patient is stable for discharge home. She is showing no signs of infection, vital signs are stable. Awaiting endocrinology recommendations on medications to go home with. Will do [id number]-xiqa as patient lives over an hour from here and plans to go to [facility] to be with baby. Patient has a BP cuff and discussed follow-up for BP and incision check within the week. She will likely follow-up with primary OBGYN regarding care after this. All questions were answered to her satisfaction. Reviewed that blood pressure parameters would be provided in her discharge paperwork as well. Department of Internal Medicine Division of Endocrinology, Diabetes, & Metabolism Endocrinology Note Patient Name: Charmaine Avila : 1990 AGE: 34 y.o. [facility] Admission Date: 02/15/2024 Visit Date: 02/21/2024 Reason for Endocrine Consult: DM2 Provider/Team Requesting Consult: OB PCP: No primary care provider on file. 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 prior to preg S/P C/S 02/19/27 28w4d due to chorio Steroid induced hyperglycemia PLAN: Continue NPH 6 units q am Continue NPH 10 units q hs Decrease Humalog to 5 units Continue Humalog Low SS ICU goal <180 GMF goal <150 POCT BG ACHS Hypoglycemia management per protocol Carb controlled diet ANTICIPATED ENDOCRINE HOME GOING RECOMMENDATIONS: Optimized for Discharge from Endocrine standpoint: No Home Going Endocrine Rx Recommendations-- TBD Has Dexcom uses intermittently due to issues with site reaction to adhesive--not currently using Outpt Follow Up-- [facility] SUBJECTIVE/HPI: CHIEF COMPLAINT: Chief Complaint Patient presents with Rupture of Membranes Patient admitted after PPROM, received Betamethasone x 2 prior to delivery and received Decadron in OR Patient sitting at side of bed states she wants to go [facility], baby was not doing well yesterday, but improved now Patient states pain is managed Denies N/V Appetite is good BG this am checked after start of BF--will make insulin adjustments Ate BF had cream of wheat, BF stack Type of DM: hx GDM all preg then DM2 2016 was on Trulicity and metformin August or September of this year off all meds and considered in remission--insulin started with planned preg Onset of DM: 2016 Home DM Medication Regimen: NPH , Humalog 26 units before meals and metformin 1000 mg BID DM control (last A1c/glucose data): Lab Results Component Value Date HGBA1C 7.4 (H) 02/15/2024 Denies retinopathy, neuropathy, nephropathy, CAD Glucose Date/Time Value Ref Range Status 02/21/2024 07:25 AM 154 (H) 70 - 100 mg/dL Final 02/20/2024 09:38 PM 207 (H) 70 - 100 mg/dL Final 02/20/2024 06:42 PM 188 (H) 70 - 100 mg/dL Final 02/20/2024 05:19 PM 208 (H) 70 - 100 mg/dL Final 02/20/2024 03:15 PM 200 (H) 70 - 100 mg/dL Final 02/20/2024 09:04 AM 305 (H) 70 - 100 mg/dL Final Comment: Caregiver Notified; Review of Systems ROS negative except for those mentioned in HPI. OBJECTIVE: Vitals: 02/20/24 1939 02/21/24 0020 02/21/24 0316 02/21/24 0754 BP: 109/69 121/75 (!) 123/53 124/68 BP Location: Right arm Right arm Right arm Patient Position: Sitting Lying Lying Pulse: 84 81 68 84 Resp: 18 18 18 16 Temp: 36.7 C (98.1 F) 36.3 C (97.3 F) 36.2 C (97.2 F) 36.2 C (97.1 F) TempSrc: Temporal Temporal Temporal Temporal SpO2: 98% 100% 98% 97% Weight: Height: Physical Exam Vitals reviewed. Constitutional: General: She is not in acute distress. Appearance: Normal appearance. She is obese. HENT: Head: Normocephalic. Eyes: Pupils: Pupils are equal, round, and reactive to light. Cardiovascular: Rate and Rhythm: Normal rate and regular rhythm. Pulses: Normal pulses. Heart sounds: Normal heart sounds. Pulmonary: Effort: Pulmonary effort is normal. Breath sounds: Normal breath sounds. Abdominal: General: Bowel sounds are normal. Musculoskeletal: General: No swelling. Normal range of motion. Cervical back: Normal range of motion. Skin: General: Skin is warm and dry. Neurological: Mental Status: She is alert and oriented to person, place, and time. Psychiatric: Mood and Affect: Mood normal. Behavior: Behavior normal. 24 hour intake/output:No intake or output data in the 24 hours ending 02/21/24 0811 Diet: Adult diet Regular Medications (as per EMR): HomeMeds: Current Outpatient Medications Medication Instructions aspirin 81 mg, Oral, Daily insulin glargine (LANTUS) 25 Units, SubCUTAneous, Nightly Insulin Lispro (HUMALOG) 24 Units, SubCUTAneous, 3 times daily with meals Loratadine-Pseudoephedrine (PX ALLERGY RELIEF D, LORATID, PO) Oral metFORMIN (OSM) (FORTAMET) 1,000 mg, Oral, 2 times daily with meals, Do not crush, chew, or split. omeprazole OTC (PRILOSEC OTC) 20 mg, Oral, Daily before breakfast, Do not crush, chew, or split. MV-Min-Fe Fum-FA-DHA ( 1 PO) Oral sertraline (ZOLOFT) 100 mg, Oral, Daily Scheduled Meds:enoxaparin, 60 mg, SubCUTAneous, Daily ferrous sulfate, 325 mg, Oral, BID WC ibuprofen, 600 mg, Oral, q6h influenza, 0.5 mL, IntraMUSCular, Once insulin lispro, 0-6 Units, SubCUTAneous, TID WC insulin lispro, 5 Units, SubCUTAneous, TID WC insulin NPH, 10 Units, SubCUTAneous, Nightly insulin NPH, 6 Units, SubCUTAneous, q AM measles, mumps and rubella, 0.5 mL, SubCUTAneous, Prior to discharge nicotine, 1 patch, TransDERmal, Daily Followed by [START ON 03/29/2024] nicotine, 1 patch, TransDERmal, Daily Followed by [START ON 04/12/2024] nicotine, 1 patch, TransDERmal, Daily vitamin, 1 tablet, Oral, Daily sertraline, 150 mg, Oral, Nightly sodium chloride 0.9%, 5-40 mL, IntraVENous, 2 times per day Tdap-Dtap, 0.5 mL, IntraMUSCular, Prior to discharge Continuous Infusions: PRN Meds:PRN medications: acetaminophen, dextrose, dextrose, diphenhydrAMINE, docusate sodium, famotidine, glucagon (rDNA), glucose, HYDROmorphone OR HYDROmorphone, hydrOXYzine pamoate, lanolin, naloxone, ondansetron ODT OR ondansetron, oxyCODONE OR oxyCODONE, simethicone, sodium chloride, sodium chloride 0.9% Diagnostic Workup: I reviewed pertinent Laboratory results, Radiographic results, and Other Clinical Notes at the time of today's encounter. Labs: No components found for: "LABA1C" No components found for: "EAG" No results found for: "NA", "K", "CL", "CO2", "BUN", "CREATININE", "GLUCOSE", "CALCIUM" No results found for: "CHLPL", CHOL No results found for: "TRIG" No results found for: "HDL" No results found for: "LDLCALC" No results found for: "VLDL" No results found for: CHOLHDLRATIO No results found for: "SIXI32BAA" No results found for: "TSH", "K0PCJSY", "H5SUGQH", "THYROIDAB" Radiology reportsas per the Radiologist Radiology: POCT glucose meter Result Date: 02/16/2024 Performed by: [facility], [address] [place] [address], [place] [address] CLIA ID: [id number] POCT glucose meter Result Date: 02/16/2024 Performed by: [email or web address], [address] [place] [address], [place] [address] CLIA ID: [id number] POCT glucose meter Result Date: 02/16/2024 Performed by: [email or web address] [place] [facility], [address] [place] [address], [place] [address] CLIA ID: [id number] POCT glucose meter Result Date: 02/16/2024 Performed by: [email or web address] [place] [facility], [address] [place] [address], [place] [address] CLIA ID: [id number] POCT glucose meter Result Date: 02/16/2024 Performed by: [email or web address] [place] [facility], [address] [place] [address], [place] [address] CLIA ID: [id number] POCT glucose meter Result Date: 02/16/2024 Performed by: [facility], [address] [place] [address], [place] [address] CLIA ID: [id number] biophysical profile wo non stress testing Result Date: 02/16/2024 OBSTETRICS REPORT (Signed Final 02/16/2024 12:48 pm) PATIENT INFO: ID #: [id number] : [birth year] (34 yrs)(F) Name: CHARMAINE AVILA Visit Date: 02/16/2024 08:45 am PERFORMED BY: Attending: Nicol Interiano MD Performed By: Chiquita Hastings Referred By: LARS LEO MD Location: [facility] Visit Type: Inpatient - Hospital SERVICE(S) PROVIDED: BORIS w/out CELESTINA [id number] INDICATIONS: Premature rupture of membranes, O42.90 unspecified as to length of time between rupture and onset of labor, unspecified weeks of gestation Obesity AMA Diabetes Cerclage [facility] Patient (Growth 02/14) VITAL SIGNS: Weight (lb): 245 Height: 5'8" BMI: 37.25 EVALUATION: Num Of Fetuses: 1 Heart Rate(bpm): 142 Cardiac Activity: Regular rhythm Lie: Longitudinal Presentation: Cephalic Placenta: Anterior Amniotic Fluid TRACEY FV: Within normal limits TRACEY Sum(cm) %Tile Largest Pocket(cm) 7.7 < 3 4 RUQ(cm) RLQ(cm) LUQ(cm) LLQ(cm) 2.9 0 4 0.8 BIOPHYSICAL EVALUATION: Amniotic F.V: Within normal limits F. Tone: Observed F. Movement: Observed Score: 12/30 F. Breathing: Observed BIOMETRY: GESTATIONAL AGE: Clinical LEELA: 28w 0d LEELA: 05/10/24 Best: 28w 0d Det. By: Clinical LEELA LEELA: 05/10/24 Nicol Interiano MD Electronically Signed Final Report 02/16/2024 12:48 pm - Mandujano live intrauterine at 28w 0d. - The amniotic fluid index is 7.7cm, which is within normal limits. - Reassuring biophysical profile, 12/30. -Cephalic presentation noted today. An anatomy scan has previously been performed at [facility] and she actually had a scan yesterday showing overgrowth and upper limits normal TRACEY at 23 cm see IP note from today Ultrasound is not diagnostic of chromosomal aneuploidy and does not detect all subtle defects. Normal ultrasound findings do not guarantee normal outcomes. POCT glucose meter Result Date: 02/16/2024 Performed by: [facility], [address] [place] [address] CLIA ID: [id number] POCT glucose meter Result Date: 02/16/2024 Performed by: [facility], [address] [place] [address] CLIA ID: [id number] POCT glucose meter Result Date: 02/16/2024 Performed by: [facility], [address] [place] [address] CLIA ID: [id number] POCT glucose meter Result Date: 02/16/2024 Performed by: [facility], [address] [place] [address] CLIA ID: [id number] POCT glucose meter Result Date: 02/16/2024 Performed by: [facility], [address] [place] [address] CLIA ID: [id number] POCT glucose meter Result Date: 02/16/2024 Performed by: [facility] [place] [facility], [address] [place], [place] [address] [place] [address] CLIA ID: [id number] POCT glucose meter Result Date: 02/16/2024 Performed by: [facility] [place] [facility], [address] [place] [address] [place] [address] CLIA ID: [id number] POCT glucose meter Result Date: 02/16/2024 Performed by: [facility] [place] [facility], [address] [place] [address] [place] [address] CLIA ID: [id number] POCT glucose meter Result Date: 02/16/2024 Performed by: [facility] [place] [facility], [address] [place] [address] CLIA ID: [id number] POCT glucose meter Result Date: 02/16/2024 Performed by: [facility] [place] [facility], [address] [place] [address] CLIA ID: [id number] POCT glucose meter Result Date: 02/16/2024 [facility]formed [facility]: [facility], [address] [place] [address] CLIA ID: [id number] POCT glucose meter Result Date: 02/16/2024 [facility]formed by: [facility], [address] [place] [address] [place] [address] CLIA ID: [id number] POCT glucose meter Result Date: 02/15/2024 Performed by: [facility], [address] [place] [address] [place] [address] CLIA ID: [id number] POCT glucose meter Result Date: 02/15/2024 Performed by: [facility] [place] [facility], [address] [place] [address] CLIA ID: [id number] History/Other: Past Medical History: Past Medical History: Diagnosis Date Anxiety Asthma Atrial fibrillation (HCC) Diabetes mellitus (HCC) Retained placenta Past Surgical History: Past Surgical History: Procedure Laterality Date CHOLECYSTECTOMY DILATION AND CURETTAGE OF UTERUS Allergy(ies): Allergies Allergen Reactions Codeine jittery Nubain [Nalbuphine] Nausea Only Percocet [Oxycodone-Acetaminophen] Nausea Only Family History: No family history on file. Social History: Social History Tobacco Use Smoking status: Every Day Current packs/day: 0.50 Types: Cigarettes Smokeless tobacco: Never Substance Use Topics Alcohol use: Not Currently Drug use: Not Currently Portions of the information within this encounter were entered using an electronic dictation system. Best attempts were made to edit/proofread the information prior to note completion. Despite the review of information, some errors may remain. If there are questions related to the information contained within the note please contact the signing physician directly. I spent 15 minutes with the pt which involved coordination of care, medical evaluation, review of records, and/or counseling of the pt regarding his/her condition/disease state/prognosis on the date of this note. Associated attestation - Jyoti Wiseman MD - 02/21/2024 9:40 AM EDT I have personally performed a face to face diagnostic evaluation on this patient. In addition, I have reviewed the resident's/SHREDDED FILLER CUTTER OPERATOR/EVP STRATEGY's care plan and agree with those findings I have performed a substantive portion of the the medical decision making. My findings are as follows: Patient has history of type 2 diabetes Before patient was on Trulicity 0.75 mg weekly and metformin extended release 500 mg 2 tablets twice a day She stopped Trulicity before her She continues to take metformin XR 500 mg 2 tablets twice a day and started NPH and Humalog Status post She visits her baby at the main campus of [facility] She is planning for breast-feeding Received steroids after surgery Has Dexcom at home She currently does not have a sensor on Vitals: BP 124/68 Pulse 84 Temp 36.2 C (97.1 F) (Temporal) Resp 16 Ht 5' 8" (1.727 m) Wt 245 lb (111 kg) SpO2 97% Yes BMI 37.25 kg/m Constitutional: Well developed Eyes: Conjunctiva clear, Pupils equal Neck: No masses, No thyromegaly Respiratory: No respiratory distress Cardiovascular System: No lower extremity edema Abdomen: obese Psychiatric: Conscious, alert, oriented to time, place and person A/P Type 2 diabetes with hyperglycemia without long-term insulin use. Patient was on insulin during Obesity Body mass index is 37.25 kg/m . Steroid-induced hyperglycemia: Received steroids during and after delivery Expected blood glucose readings will improve Continue NPH 6 units every morning and 10 units at bedtime Decrease Humalog to 5 units before meals with correction I am hoping that patient will require less insulin and be discharged on metformin extended release 500 mg 2 tablets twice a day Will avoid Trulicity for now because patient is planning for breast-feeding Patient was instructed to monitor blood glucose readings carefully after discharge I spent 35 minutes with the pt which involved in coordination of care, medical evaluation, review of records, and/or counseling of the pt regarding his/her condition/disease state/prognosis on the date of this note. Old records including available PCP, ED notes and or other specialists notes are reviewed. LABs and/or imaging are reviewed as detailed in the resident's/SHREDDED FILLER CUTTER OPERATOR/EVP STRATEGY's note Images from the original note were not included. Note- POST OPERATIVE DAY # 1 Charmaine Avila is a 34 y.o. who was seen & examined today. Her was complicated by: Patient Active Problem List Diagnosis Premature rupture of membranes Adjustment reaction with anxiety DAVI (generalized anxiety disorder) Today she is doing well without any chief complaint. Her lochia is light. She denies Headache, Chest Pain, Vision Changes, and Shortness of Breath. She is ambulating well. Flatus absent. Bowel movement absent. Voiding spontaneously . She is tolerating solids. Pain is controlled yes. Vital Signs: Vitals: 02/20/24 1512 02/20/24 1939 02/21/24 0020 02/21/24 0316 BP: 129/75 109/69 121/75 (!) 123/53 BP Location: Right arm Right arm Right arm Right arm Patient Position: Lying Sitting Lying Lying Pulse: 88 84 81 68 Resp: 20 18 18 18 Temp: 36.3 C (97.3 F) 36.7 C (98.1 F) 36.3 C (97.3 F) 36.2 C (97.2 F) TempSrc: Temporal Temporal Temporal Temporal SpO2: 96% 98% 100% 98% Weight: Height: Urine Input & Output last 24hrs: No intake or output data in the 24 hours ending 02/21/24 0633 Physical Exam: GENERAL APPEARANCE: alert, well appearing, in no apparent distress ABDOMEN : benign non-tender, without masses or organomegaly palpable; supra-umbilical tenderness at location of patients hernia, + bowel sounds in all four quadrants EXTREMITIES: no redness or tenderness in the calves or thighs, no edema NEUROLOGIC: alert, oriented, normal speech, no focal findings or movement disorder noted UTERUS : normal size, well involuted, firm, non-tender Desc; incision: Silverlon in place Labs: Lab Results Component Value Date WBC 17.4 (H) 02/19/2024 HGB 11.4 (L) 02/19/2024 HCT 33.1 (L) 02/19/2024 MCV 85.1 02/19/2024 PLT 202 02/19/2024 O Antibody Screen: No results found for: "LABANTI" No results found for: "RUBELLAIGG" LABOR DELIVERY ??? SCD's ONLY (labor through ambulation) SCD's PLUS Prophylactic Anticoagulation until discharge SCD's PLUS Prophylactic Anticoagulation for 6 weeks SCD's PLUS Therapeutic Anticoagulation for 6 weeks Vaginal Delivery [] BMI >= 40 kg/m2 Delivery All patients Vaginal Delivery [] BMI >= 40 kg/m2 AND [] Antepartum hospitalization >= 72 hours within the past month Delivery 1 Major Risk Factor: [] BMI >= 35 kg/m2 [] Low Risk Thrombophilia [] PPH+RBCs, IR, or operation [] Infection+Antibiotics [] Antepartum hospitalization >= 72 hours within the past month [] PMH: Sickle Cell, SLE, Cardiac Dz, Active IBD, Active Cancer, Nephrotic Syndrome OR 2 Minor Risk Factors: [] Multiple gestation [] Age > 40 [] PPH >= 1,000cc [] (+)FMH of VTE [] Smoker [] Preeclampsia [] BMI >= 40 kg/m2 AND [] Low Risk Thrombophilia OR ANY OF THE FOLLOWING: [] High Risk Thrombophilia without prior VTE [] Low Risk Thrombophilia with (+)FMH of VTE [] Any single prior VTE ANY OF THE FOLLOWING: [] Already on LMWH/UFH [] Multiple prior VTE [] High Risk Thrombophilia with prior VTE Low Risk Thrombophilia: FVL (heterozygous), Prothrombin (heterozygous), Protein C, Protein S High Risk Thrombophilia: FVL (homozygous), Prothrombin (homozygous), FVL+Prothrombin (heterozygous), Antithrombin III, APLS Assessment/Plan: Charmaine Avila is a 34 y.o. POD # 1 s/p Primary LTCS + T incision, Bilateral Salpinectomy Care - Doing well, VSS - Boy at [facility] - both, breast and bottle feeding - Contraception: S/p BTL - Encourage ambulation and use of incentive spirometer - D/C torres catheter and saline lock IV on POD #1 - Postop Hb pending - VTE Prophylaxis: Prophylactic Dosing until Discharge Chorioamnionitis - Admitted to for PPROM and then was diagnosed with Chorioamnionitis, given the diagnosis and Cat II, she delivered early - s/p Zosyn x2 - No fundal tenderness this AM - Afebrile overnight T2DM - Endo following and managing - Current regimen: NPH 11/01, Log 9u with LDSS - BGTs elevated Hx Hernia - Has a known hernia - Was tender on palpation this AM - Reports it gets tender sometimes and then gets better on its own - + Bowel sounds - Has not passed flatus, tolerating PO without nausea or vomiting - Will continue to monitor closely gHTN - Normotensive overnight - PreE labs WNL - Asymptomatic this AM Disposition: Continue current care Based on my clinical assessment, this patient is safe for self discharge (does not need transport by wheelchair) if she so chooses. Provider's Name: MD FLORIDALMA Mei DO 02/21/2024, 6:33 AM Associated attestation - Emani Encinas DO - 02/21/2024 3:09 PM EDT Hospital Care (Independent): I independently saw and evaluated the patient. I agree with the findings and plan of care as documented in the resident's note. Called by RN to evaluate increased LOF and pressure. SSE performed with small amount of pooling of clear, non-purulent fluid. Cervix closed. Afebrile. Maternal HRR. FHT cat I and reassuring. Will continue to closely monitor. Called by RN to evaluate patients pain. Fundal tenderness present, pt states started earlier tonight and is now worse. She is afebrile. tachycardia present s/p IVF bolus. Will obtain CBC STAT. Vitals: 02/19/24 2147 BP: Pulse: Resp: Temp: 36.7 C (98 F) SpO2: remains cat II for tachycardia. Fundal tenderness still present. CBC remarkable for increasing leukocytosis with WBC 17.4, increased from 16.3 this AM. Reviewed POC with Dr Miranda and Dr Mendoza. Will start on zosyn continue IVF. If FHT becomes cat I will try for IOL. If cat II persists will proceed with PCD. Pt aware to remain NPO. NICU and conveyor line battery charger aware. Images from the original note were not included. Maternal Medicine Service Resident Progress Note 02/19/2024 5:45 AM 02/15/2024 Hospital Day: 5 Charmaine Avila, 34 y.o. 28w3d Patient has been seen and examined. Patient reports persistent mild abdominal cramping today that is much improved from prior. She continues to leak clear fluid and has noticed a yellow discharge as well. No vaginal bleeding, fevers, or chills. She has no other concerns today. Positive movement Negative vaginal bleeding Positive LOF rare Contractions Vitals: 02/18/24 1605 02/18/24200802/18/24 2240 02/19/24 0316 BP: (!) 120/59 120/69 132/63 139/73 BP Location: Right arm Patient Position: Sitting Pulse: 88 86 78 81 Resp: 18 20 20 18 Temp: 36.7 C (98 F) 36.4 C (97.6 F) 36.7 C (98 F) 36.5 C (97.7 F) TempSrc: Oral Oral Oral Oral SpO2: 98% 98% 96% 100% Weight: Height: FHT: 130, moderate variability Accels: present Decels: absent Contractions: none Physical Exam: Gen: NAD, appears comfortable sitting up in bed HEENT: Normocephalic, Atraumatic Resp: Equal chest rise and fall bilaterally, no additional work of breathing Abd: soft, gravid, no rebound, no guarding. Mild tenderness to palpation in epigastric region Ext: No LE edema, no calf tenderness or swelling Medications: Current Facility-Administered Medications Medication Dose Route Frequency Provider Last Rate Last Admin cyclobenzaprine (Flexeril) tablet 5 mg 5 mg Oral Once Irasema Lena, DO dextrose 5 % infusion 100 mL/hr IntraVENous PRN Irasemajamie Villagraneper, DO dextrose 50 % solution 12.5 g 12.5 g IntraVENous PRN Irasema Villagraneper, DO glucagon (human recombinant) injection 1 mg 1 mg IntraMUSCular PRN Irasema Villagraneper, DO glucose oral gel 15 g 15 g Oral PRN Irasema Villagraneper, DO hydrOXYzine pamoate (Vistaril) capsule 25 mg 25 mg Oral q6h PRN Ally Chino MD 25 mg at 02/18/24 210 Insulin Lispro (Humalog) injection 26 Units 26 Units SubCUTAneous TID Ally Chino MD 26 Units at 02/18/24 1659 insulin NPH (Isophane) (HumuLIN N,NovoLIN N) injection 16 Units 16 Units SubCUTAneous qAM AC Ally Chino MD insulin NPH (Isophane) (HumuLIN N,NovoLIN N) injection 32 Units 32 Units SubCUTAneous Nightly Ally Chino MD 32 Units at 02/18/24 2105 loperamide (Imodium) capsule 2 mg 2 mg Oral 4x daily PRN Ally Chino MD 2 mg at 02/18/24 1211 metFORMIN (Glucophage) tablet 1,000 mg 1,000 mg Oral BID Nicol Interiano MD 1,000 mg at 02/18/24 1658 nicotine (Nicoderm, Step 1) 21 MG/24HR patch 1 patch 1 patch TransDERmal Daily Vikki Díaz DO Followed by [START ON 03/29/2024] nicotine (Nicoderm, Step 2) 14 MG/24HR patch 1 patch 1 patch TransDERmal Daily Vikki Díaz DO Followed by [START ON 04/12/2024] nicotine (Nicoderm, Step 3) 7 MG/24HR patch 1 patch 1 patch TransDERmal Daily Vikki Díaz DO nicotine polacrilex (Nicorette) gum 4 mg 4 mg Mouth/Throat q1h PRN Vikki Díaz DO sertraline (Zoloft) tablet 150 mg 150 mg Oral Nightly Ally Chino MD 150 mg at 02/18/242104 sodium chloride 0.9 % infusion 5-250 mL/hr IntraVENous PRN Irasema Paredes DO sodium chloride 0.9% (NS) flush 10 mL 10 mL IntraVENous 2 times per day Irasema Paredes DO 10 mL at 02/18/242107 sodium chloride 0.9% (NS) flush 10 mL 10 mL IntraVENous PRN Irasema Paredes DO Assessment/Plan: Charmaine Avila is a 34 y.o. female 28w3d PPROM Cerclage removed Hx of PPROM/PTD -G3 2016 25w following PPROM -G4 16w Demise following PPROM, diagnosed with chorio during that time -Follows with Dr. Bravo/Dr. Sanon in [place]/[facility], records requested -Cerclage was placed in 12w for hx of PTD -PPROM 02/14 -BMZx2 on 02/15-02/16 -S/p magnesium sulfate for neuroprotection -S/p NICU consult -Continue latency abx -Cerclage removed 02/15 due to concern for infection -Continue expectant management, plan for rMag bolus if delivery imminent -Okay for if laboring -Consider TDAP and flu vaccines while admitted -Last growth 02/14 1558g EFW >99%, AC >99% -BPP 6/8 for fluid on 02/17, TRACEY 1.7 -No acute events overnight, vitals stable T2DM -Diagnosed after G4 -GDMA with all other pregnancies -Patient reports she is diet controlled not requiring medication when not -HgbA1c 6.5 in December, 7.4 on admission -Continue on BASA daily -BGTs initially difficult to control on admission, required insulin drip -Insulin regimen now titrated to NPH , Log , Metformin 1000mg BID -BGTs significantly improved now, may need to titrate regimen further if hypoglycemic gHTN -Met criteria during admission -PreE labs negative, UPC 0.22 -BP overall normotensive Hx of Demise Anxiety -G4 16w 2022, no heart rate at time of delivery -Per patient, was diagnosed with chorio -Zoloft increased to 150mg nightly -Vistaril PRN -CLP consulted and has seen patient Estimated LGA Hx of Macrosomia -G1/G2 both babies and 9lb3oz, 9lb2oz -Last growth 02/14 1558g EFW >99%, AC >99% -Dated by 7w US Hx of manual extraction Hx of D&Cs x6 -Hx of placenta manual extraction in G1 -D&C in G4 after 16w loss for placenta and bleeding -Reports about 6 D&Cs in past heavy bleeding Asthma -Sports induced -Asymptomatic Tobacco Abuse -1/2 PPD -Continue NRT -Encourage cessation Desire for BTL -Desires permament sterilization -Consent signed IUP @ 28w3d - Dating by 7w US - Cephalic 02/17 - Monitorinhr TID - Diet:Gestational CCD - BMZ x2 on 02/15-02/16 Further plan pending d/w attending. Brooke Rendon, MS4 02/19/2024, 5:45 AM Agree with above documentation by medical student. Will obtain vaginitis swabs. States she is having epigastric pain that feels like knives when she lays on her side, no other abdominal pain or tenderness. Afebrile, normotensive, no tachycardia. Will discuss with MFM Associated attestation - Nicol Interiano MD - 02/19/2024 3:41 PM EDT I independently saw and evaluated the patient. I agree with the findings and plan of care as documented in the resident's note. Some intermittent pain still present no vaginal bleeding and sleeping in bed discussed improved BGT Cat 1 tracing and no obvious contractions Feels better with BGT 34 yr old at 28 3/7 GA with the following: PPROM with cerclage placement this . CERCLAGE OUT> History of PPROM/PTD/demise and subsequent chorio with her recent G4. She is cephalic on 02/18/24 ultrasound. Continue to expectantly manage as long as no signs of chorioamnionitis, labor or bleeding. NT fundus today and otherwise stable encouraged to tell us if pain worsens otherwise avoid digital exams Prematurity 02/15/24 scan at her OB through [facility] revealed overgrowth and this was discussed and s/p consultation with higher risk for hypoglycemia given prematurity and higher BGT post steroids. Patient reports being "controlled" this but has recently been taking in more sugar from [place] consumption over the past few days prior to admission. S/p magnesium for neuroprotection, okay for bolus only 4gm IV if > 72 hours from original dosing. Currently s/p BMZ now x 2 with significant increases in her BGT while hospitalized. No tocolysis is indicated given PPROM T2DM split dose insulin finally improved numbers and suspect a decrease in insulin will be needed today based upon her numbers. Okay for 2 hour BGT and pre-meal dosing of short acting is fine continue to hope for better control today with significant increase in insulin post steroids. Follow over the next 24 hours as she is at increased risk for hypoglycemia adjusted her dosing back to her admission dosing with continued adjustments expected History of demise after PPROM at periviable GA poor obstetrical history consider CLP consult given her possible concerns for PTSD and discussed increasing Zoloft to 150mg daily and Visteril prn for her current anxiety History of manual extraction of placenta and D&C would consent again after this delivery given history at risk for PPH, OB team is aware and the patient has never spontaneously delivered a placenta. High risk for PPH Asthma sports induced Tobacco usage offer replacement Desire for BTL will sign consent but if vaginal this may need to be performed as interval with her primary OB care all through [facility] offer Tdap + flu shot while IP if stable. RH positive gHTN isolated BP 154/75 will repeat and if persistently mild will plan on pre-eclampsia work up normal CMP and platelets this admission Protein to creatinine ratio 0.22. Will obtain this may not be accurate given PROM. No BP meds at this time are recommended will continue to follow normotensive today Ongoing IP management and control of T2DM with expectant management s/p cerclage removal. No signs of chorio and follow closely for any signs. Okay for continued latency ABX and s/p BMZ x 2. S/p IV magnesium for neuroprotection. SCD while in the bed now as well given her obesity may need to consider Lovenox if stable over the next 24-48 hours given her BMI. Okay for if labor or planned IOL if continued cephalic presentation. At risk for PPH and retained placenta has second IV in place. Hemoglobin is currently 11.1 Expect to adjust insulin back to admission dosing today post steroids. I spent 30 minutes in the visit today on the floor reviewing the chart, discussing the case with the residency staff and nursing Nicol Interiano MD Nutrition Assessment Type and Reason for Visit: Initial (DT referral for GDM) Nutrition Recommendations/Plan: Continue with gestational carb control diet and will add 15 grams carbohydrate snacks between meals and HS to current diet order. Reinforce diet as needed RD continue to monitor overall nutritional status and follow up weekly Malnutrition Assessment: Malnutrition Status: No malnutrition Context: Acute Illness Nutrition Assessment: Patient IUP @ 28/2 weeks admitted for PPROM. Patient presented to the triage for PPROM at 2000 for clear fluid. No contractions. Confirmed ROM in triage with cerclage in place, not on tension, cervix visually closed. Patient with hx of PPROM/PTD, cerclage was placed in 12w for hx of PTD. Patient with PPROM 02/14; s/p BMZx2 on 02/15-02/16 and s/p magnesium sulfate for neuroprotection. Cerclage removed 02/15 due to concern for infection. Last growth 02/14 1558g EFW >99%, AC >99%. Patient with history of DM (after G4) and is diet controlled when not . Last HgbA1c 7.4% (02/14). Patient now receiving insulin and metformin. Patient ordered gestational carb control diet which is appropriate. Patient sitting in bedside chair hooked to monitors. Patient reports she is tolerating her meals well and understands how many carbs to order with meals. Informed patient she is allowed 15 grams carb between meals and for HS snacks. RD informed RN as well and will add to current diet order. Estimated Daily Nutrient Needs: Energy Requirements Based On: Kcal/kg Weight Used for Energy Requirements: [place] Weight for Energy Calculation (kg): 64 kg Total Energy Requirements (kcals/day): 9485-2992 (30-35) Weight Used for Protein Requirements: [place] Weight in Kg Used for Protein Requirements: 64 kg Estimated Total Protein (g/day): 77-90 (1.2-1.4) Estimated Daily Total Fluid (ml/day): per MD Nutrition Related Findings: +bowel sounds; no edema noted; Lamont 23; BM 12/17 Wound Type: None BMP: Recent Labs 02/15/24230802/16/24 0629 NA 134* 135 K 3.8 4.0 CL 109* 111* CO2 17* 18* BUN 9 6* CREATININE 0.36* 0.32* GLUCOSE 178* 170* CALCIUM 9.4 7.8* HEPATIC: Recent Labs 02/15/24230802/16/24 0629 AST 27 18 ALT 15 14 BILITOT 0.5 0.2 ALKPHOS 118 106 Glucose Date Value Ref Range Status 02/18/2024 58 (L) 70 - 100 mg/dL Final 02/18/2024 129 (H) 70 - 100 mg/dL Final 02/18/2024 103 (H) 70 - 100 mg/dL Final 02/18/2024 103 (H) 70 - 100 mg/dL Final 02/18/2024 79 70 - 100 mg/dL Final 02/17/2024 152 (H) 70 - 100 mg/dL Final Scheduled Meds: amoxicillin, 500 mg, Oral, 3 times per day azithromycin, 500 mg, Oral, Daily cyclobenzaprine, 5 mg, Oral, Once influenza, 0.5 mL, IntraMUSCular, Once insulin lispro, 26 Units, SubCUTAneous, TID WC [START ON 02/19/2024] insulin NPH, 16 Units, SubCUTAneous, qAM AC insulin NPH, 32 Units, SubCUTAneous, qPM metFORMIN, 1,000 mg, Oral, BID WC nicotine, 1 patch, TransDERmal, Daily Followed by [START ON 03/29/2024] nicotine, 1 patch, TransDERmal, Daily Followed by [START ON 04/12/2024] nicotine, 1 patch, TransDERmal, Daily , 1 tablet, Oral, Daily sertraline, 150 mg, Oral, Nightly sodium chloride 0.9%, 10 mL, IntraVENous, 2 times per day Current Nutrition Therapies: Adult diet Regular; Gestational (30-45-60 gm/meal) Current Oral Intake Average Meal Intake: 76-100% Average Supplements Intake: None Ordered Anthropometric Measures: Height: 172.7 cm (5' 8") Admission Body Weight: 111 kg (245 lb) Usual Body Weight: 110 kg (242 lb) (02/15/24) [place] Body Weight (lbs) (Calculated): 140 lbs [place] Body Weight (Kg) (Calculated): 64 kg Nutrition Diagnosis: Increased nutrient needs related to increase demand for energy/nutrients as evidenced by (IUP) Altered nutrition-related lab values related to endocrine dysfuntion as evidenced by lab values Nutrition Interventions: Nutrition Education/Counseling: No recommendation at this time Coordination of Nutrition Care: Continue to monitor while inpatient Goals: Goals: Meet at least 75% of estimated needs, by next RD assessment Nutrition Monitoring and Evaluation: Behavioral-Environmental Outcomes: None Identified Food/Nutrient Intake Outcomes: Food and Nutrient Intake Physical Signs/Symptoms Outcomes: Biochemical Data, GI Status, Fluid Status or Edema, Skin, Weight Discharge Planning: Too soon to determine Daphney Toro MS RD LD Contact: Settle or *[phone] Images from the original note were not included. Maternal Medicine Service Resident Progress Note 02/18/2024 5:24 AM 02/15/2024 Hospital Day: 4 Charmaine Avila, 34 y.o. 28w2d Patient has been seen and examined. Pt still having some vaginal pressure, no other changes. Positive movement Negative vaginal bleeding Positive LOF Negative Contractions Vitals: 02/18/24 0035 02/18/24 0040 02/18/24 0050 02/18/24 0051 BP: 121/69 Pulse: 73 66 84 79 Resp: 18 Temp: 36.9 C (98.4 F) TempSrc: SpO2: Weight: Height: FHT reviewed over past 12 hours FHT: 150, moderate variability Accels: present Decels: absent Contractions: none Physical Exam: Gen: NAD HEENT: Normocephalic, Atraumatic Resp: Non-labored Abd: soft, gravid, NTND, no rebound, no guarding. negative fundal tenderness Medications: Current Facility-Administered Medications Medication Dose Route Frequency Provider Last Rate Last Admin amoxicillin (Amoxil) capsule 500 mg 500 mg Oral 3 times per day Irasema Tyshawneper, DO 500 mg at 02/18/24 0049 ampicillin (Omnipen) 2 g injection for IM use - Pyxis ADS Override Pull azithromycin (Zithromax) tablet 500 mg 500 mg Oral Daily Irasema Schlieper, DO 500 mg at 02/17/24 0907 calcium gluconate 10 % injection 1 g 1 g IntraVENous PRN Irasemakolby Villagraneper, DO cyclobenzaprine (Flexeril) tablet 5 mg 5 mg Oral Once Irasema Tyshawneper, DO dextrose 5 % infusion 100 mL/hr IntraVENous PRN Irasemakolby Villagraneper, DO dextrose 50 % solution 12.5 g 12.5 g IntraVENous PRN Irasema Paredes, DO glucagon (human recombinant) injection 1 mg 1 mg IntraMUSCular PRN Irasema Villagraneper, DO glucose oral gel 15 g 15 g Oral PRN Irasema Villagraneper, DO hydrOXYzine pamoate (Vistaril) capsule 25 mg 25 mg Oral q6h PRN Ally Chino MD 25 mg at 02/17/24 210 influenza vac tiss-cult subunt (Flucelvax) injection 0.5 mL 0.5 mL IntraMUSCular Once Irasemakolby Villagraneper, DO Insulin Lispro (Humalog) injection 50 Units 50 Units SubCUTAneous TID Ally Chino MD 50 Units at 02/17/24 1720 insulin NPH (Isophane) (HumuLIN N,NovoLIN N) injection 20 Units 20 Units SubCUTAneous qAM REGAN Zacarias DO 20 Units at 02/17/24 0616 insulin NPH (Isophane) (HumuLIN N,NovoLIN N) injection 50 Units 50 Units SubCUTAneous qPM Ally Chino MD 50 Units at 02/17/24 1905 metFORMIN (Glucophage) tablet 1,000 mg 1,000 mg Oral BID Nicol Interiano MD 1,000 mg at 02/17/24 1729 nicotine (Nicoderm, Step 1) 21 MG/24HR patch 1 patch 1 patch TransDERmal Daily Vkiki [place], DO Followed by [START ON 03/29/2024] nicotine (Nicoderm, Step 2) 14 MG/24HR patch 1 patch 1 patch TransDERmal Daily Vikki Bre, DO Followed by [START ON 04/12/2024] nicotine (Nicoderm, Step 3) 7 MG/24HR patch 1 patch 1 patch TransDERmal Daily Vikki [place], DO nicotine polacrilex (Nicorette) gum 4 mg 4 mg Mouth/Throat q1h PRN Vikki [place], DO ondansetron ODT (Zofran-ODT) disintegrating tablet 4 mg 4 mg Oral q8h PRN Irasema Schcliftoneper, DO Or ondansetron (Zofran) injection 4 mg 4 mg IntraVENous q6h PRN Irasema Schcliftoneper, DO 4 mg at 02/16/24 1129 polyethylene glycol (PEG) 3350 (Miralax) packet 17 g 17 g Oral Daily PRN Irasema Schcliftoneper, DO vitamin tablet 1 tablet Oral Daily Irasema Schlieper, DO 1 tablet at 02/17/24 0802 sertraline (Zoloft) tablet 150 mg 150 mg Oral Nightly Ally Chino MD 150 mg at 02/17/24 210 sodium chloride 0.9 % infusion 5-250 mL/hr IntraVENous PRN Irasema Schcliftoneper, DO sodium chloride 0.9% (NS) flush 10 mL 10 mL IntraVENous 2 times per day Irasema Schlieper, DO 10 mL at 02/17/242012 sodium chloride 0.9% (NS) flush 10 mL 10 mL IntraVENous PRN Irasema Schlieper, DO Assessment/Plan: Charmaine Avila is a 34 y.o. female 28w2d PPROM Cerclage removed Hx of PPROM/PTD -G3 2016 25w following PPROM -G4 16w Demise following PPROM, diagnosed with chorio during that time -Follows with Dr. Bravo/Dr. Sanon in [place]/[facility], records requested -Cerclage was placed in 12w for hx of PTD -PPROM 02/14 -Continue latency abx, ampicillin, azithromycin followed by amoxicillin and azithromycin -BMZx2 on 02/15-02/16 -S/p magnesium sulfate for neuroprotection -S/p NICU consult -Last growth this AM 02/14 1558g EFW >99%, AC >99% -BPP 12/30 02/16 -Cerclage removed 02/15 due to concern for infection -No acute events overnight T2DM -Diagnosed after G4 -GDMA with all other pregnancies -When not , reports diet controlled, no medications -HgbA1c 6.5 in December, 7.4 on admission -Continue on BASA daily -Was on insulin gtt yesterday but able to be turned off around lunch -Continue NPH ; Log 50//; Metformin 1000mg BID -BGTs improved since yesterday gHTN -Met criteria during admission -PreE labs negative, UPC 0.22 -BP overall normotensive Hx of Demise Anxiety -G4 16w 2022, no heart rate at time of delivery -Per patient, was diagnosed with chorio -Continue home Zoloft 100mg nightly -CLP consult ordered, appreciate recs Estimated LGA Hx of Macrosomia -G1/G2 both babies and 9lb3oz, 9lb2oz -Last growth this AM 02/14 1558g EFW >99%, AC >99% -Dated by 7w US Hx of manual extraction Hx of D&Cs x6 -Hx of placenta manual extraction in G1 -D&C in G4 after 16w loss for placenta and bleeding -Reports about 6 D&Cs in past heavy bleeding Asthma -Sports induced -Asymptomatic Tobacco Abuse -1/2 PPD -Continue NRT Desire for BTL -Desires permament sterilization -Consent signed IUP @ 28w2d - Dating by \\ US - Cephalic 02/15 - Monitoring:CEFM - Diet:Gestational CCD - BMZ x2 on 02/15-02/16 Further plan pending d/w attending. BROOKE ESPARZA DO 02/18/2024, 5:24 AM Associated attestation - Nicol Interiano MD - 02/18/2024 1:05 PM EDT I independently saw and evaluated the patient. I agree with the findings and plan of care as documented in the resident's note. Some intermittent pain still present no vaginal bleeding and sleeping in chair when I came in to the room Cat 1 tracing and no obvious contractions Feels better with BGT 34 yr old at 28 2/7 GA with the following: PPROM with cerclage placement this . CERCLAGE OUT> History of PPROM/PTD/demise and subsequent chorio with her recent G4. She is cephalic on 02/18/24 ultrasound. Continue to expectantly manage as long as no signs of chorioamnionitis, labor or bleeding. NT fundus today and otherwise stable encouraged to tell us if pain worsens otherwise avoid digital exams Prematurity 02/15/24 scan at her OB through [facility] revealed overgrowth and this was discussed and s/p consultation with higher risk for hypoglycemia given prematurity and higher BGT post steroids. Patient reports being "controlled" this but has recently been taking in more sugar from [place] consumption over the past few days prior to admission. S/p magnesium for neuroprotection, okay for bolus only 4gm IV if > 72 hours from original dosing. Currently s/p BMZ now x 2 with significant increases in her BGT while hospitalized. No tocolysis is indicated given PPROM T2DM split dose insulin finally improved numbers and suspect a decrease in insulin will be needed today based upon her numbers. Okay for 2 hour BGT and pre-meal dosing of short acting is fine continue to hope for better control today with significant increase in insulin post steroids. Follow over the next 24 hours as she is at increased risk for hypoglycemia adjusted her dosing back to her admission dosing with continued adjustments expected History of demise after PPROM at periviable GA poor obstetrical history consider CLP consult given her possible concerns for PTSD and discussed increasing Zoloft to 150mg daily and Visteril prn for her current anxiety History of manual extraction of placenta and D&C would consent again after this delivery given history at risk for PPH, OB team is aware and the patient has never spontaneously delivered a placenta. High risk for PPH Asthma sports induced Tobacco usage offer replacement Desire for BTL will sign consent but if vaginal this may need to be performed as interval with her primary OB care all through [facility] offer Tdap + flu shot while IP if stable. RH positive gHTN isolated BP 154/75 will repeat and if persistently mild will plan on pre-eclampsia work up normal CMP and platelets this admission Protein to creatinine ratio 0.22. Will obtain this may not be accurate given PROM. No BP meds at this time are recommended will continue to follow normotensive today Ongoing IP management and control of T2DM with expectant management s/p cerclage removal. No signs of chorio and follow closely for any signs. Okay for continued latency ABX and s/p BMZ x 2. S/p IV magnesium for neuroprotection. SCD while in the bed now as well given her obesity may need to consider Lovenox if stable over the next 24-48 hours given her BMI. Okay for if labor or planned IOL if continued cephalic presentation. At risk for PPH and retained placenta has second IV in place. Hemoglobin is currently 11.1 Expect to adjust insulin back to admission dosing today post steroids. I spent 30 minutes in the visit today on the floor reviewing the chart, discussing the case with the residency staff and nursing Nicol Interiano MD Consult received, electronic medical record reviewed. Pt to be seen tomorrow. Nutrition rescreen completed. Patient referred to the Dietitian for Gestational DM. ANA LAURA Mcmahon Images from the original note were not included. Maternal Medicine Service Resident Progress Note 02/17/2024 5:17 AM 02/15/2024 Hospital Day: 3 Charmaine Avila, 34 y.o. 28w1d Patient has been seen and examined. Pt complains of some vaginal pressure, SSE overnight negative for cervical dilation, minimal contractions. Feeling some chills this AM, will plan to repeat temperature. Positive movement Negative vaginal bleeding Positive LOF Positive Contractions Vitals: 02/16/24 1020 02/16/24 1025 02/16/24 1026 02/16/24 2305 BP: 135/67 128/78 Pulse: 93 85 84 99 Resp: 18 Temp: 36.7 C (98.1 F) 36.6 C (97.8 F) TempSrc: Oral Axillary SpO2: Weight: Height: FHT reviewed over past 12 hours FHT: 130, moderate variability Accels: present Decels: present, intermittent variable decels, overall reassuring with both moderate variability and spon accels Contractions: none on toco Physical Exam: Gen: NAD HEENT: Normocephalic, Atraumatic Resp: Non-labored Abd: soft, gravid, NTND, no rebound, no guarding. negative fundal tenderness Medications: Current Facility-Administered Medications Medication Dose Route Frequency Provider Last Rate Last Admin ampicillin (Omnipen) 2,000 mg in sodium chloride 0.9 % 100 mL IVPB 2,000 mg IntraVENous 4 times per day Irasema Paredes DO Stopped at 02/17/24 0039 Followed by [START ON 02/18/2024] amoxicillin (Amoxil) capsule 500 mg 500 mg Oral 3 times per day Irasema Paredes DO azithromycin (Zithromax) tablet 500 mg 500 mg Oral Daily Irasema Paredes DO calcium gluconate 10 % injection 1 g 1 g IntraVENous PRN Irasema Paredes DO cyclobenzaprine (Flexeril) tablet 5 mg 5 mg Oral Once Irasema Paredes DO dextrose 5 % infusion 100 mL/hr IntraVENous PRN Irasema Paredes DO dextrose 50 % solution 12.5 g 12.5 g IntraVENous PRN Irasema Paredes DO glucagon (human recombinant) injection 1 mg 1 mg IntraMUSCular PRN Irasema Paredes DO glucose oral gel 15 g 15 g Oral PRN Irasema Paredes DO influenza vac tiss-cult subunt (Flucelvax) injection 0.5 mL 0.5 mL IntraMUSCular Once Irasema Paredes DO Insulin Lispro (Humalog) injection 42 Units 42 Units SubCUTAneous TID WC Brooke Esparza DO 42 Units at 02/16/24 1731 insulin NPH (Isophane) (HumuLIN N,NovoLIN N) injection 20 Units 20 Units SubCUTAneous qAM AC Pauline Zacarias DO insulin NPH (Isophane) (HumuLIN N,NovoLIN N) injection 40 Units 40 Units SubCUTAneous qPM Brooke Esparza DO 40 Units at 02/16/24 1834 insulin regular 100 units in 100 mL NS (Myxredlin) infusion (premix) 1-50 Units/hr IntraVENous Continuous Irasema Schlieper, DO Stopped at 02/16/24 1337 metFORMIN (Glucophage) tablet 1,000 mg 1,000 mg Oral BID Nicol Interiano MD 1,000 mg at 02/16/24 1731 nicotine (Nicoderm, Step 1) 21 MG/24HR patch 1 patch 1 patch TransDERmal Daily Vikki Díaz, DO Followed by [START ON 03/29/2024] nicotine (Nicoderm, Step 2) 14 MG/24HR patch 1 patch 1 patch TransDERmal Daily Vikki Díaz, DO Followed by [START ON 04/12/2024] nicotine (Nicoderm, Step 3) 7 MG/24HR patch 1 patch 1 patch TransDERmal Daily Vikki Díaz, DO nicotine polacrilex (Nicorette) gum 4 mg 4 mg Mouth/Throat q1h PRN Vikki Díaz, DO ondansetron ODT (Zofran-ODT) disintegrating tablet 4 mg 4 mg Oral q8h PRN Irasema Schlieper, DO Or ondansetron (Zofran) injection 4 mg 4 mg IntraVENous q6h PRN Irasema Schlieper, DO 4 mg at 02/16/24 1129 polyethylene glycol (PEG) 3350 (Miralax) packet 17 g 17 g Oral Daily PRN Irasema Schlieper, DO vitamin tablet 1 tablet Oral Daily Irasema Schlieper, DO 1 tablet at 02/16/24 0916 sertraline (Zoloft) tablet 100 mg 100 mg Oral Nightly Vikki Bre, DO 100 mg at 02/16/24 2030 sodium chloride 0.9 % infusion 5-250 mL/hr IntraVENous PRN Irasema Schlieper, DO sodium chloride 0.9% (NS) flush 10 mL 10 mL IntraVENous 2 times per day Irasema Schlieper, DO 10 mL at 02/16/24 2100 sodium chloride 0.9% (NS) flush 10 mL 10 mL IntraVENous PRN Irasema Schlieper, DO Assessment/Plan: Charmaine Avila is a 34 y.o. female 28w1d PPROM Cerclage in PLACE Hx of PPROM/PTD -G3 2016 25w following PPROM -G4 16w Demise following PPROM, diagnosed with chorio during that time -Follows with Dr. Bravo/Dr. Sanon in [place]/[facility], records requested -Cerclage was placed in 12w for hx of PTD -PPROM 02/14 -Continue latency abx, ampicillin, azithromycin followed by amoxicillin and azithromycin -BMZx2 on 02/15-02/16 -S/p magnesium sulfate for neuroprotection -S/p NICU consult -Last growth this AM 02/14 1558g EFW >99%, AC >99% -BPP 12/30 02/16 -Cerclage removed 02/15 due to concern for infection -Had vaginal pinching overnight, SSE unchanged from previous exams T2DM -Diagnosed after G4 -GDMA with all other pregnancies -When not , reports diet controlled, no medications -HgbA1c 6.5 in December, 7.4 on admission -Continue on BASA daily -Was on insulin gtt yesterday but able to be turned off around lunch -Continue NPH ; Log ; Metformin 1000mg BID -BGTs elevated during the steroid window gHTN -Met criteria during admission -PreE labs negative -BP overall normotensive Hx of Demise Anxiety -G4 16w 2022, no heart rate at time of delivery -Per patient, was diagnosed with chorio -Continue home Zoloft 100mg nightly -CLP consult to be considered Estimated LGA Hx of Macrosomia -G1/G2 both babies and 9lb3oz, 9lb2oz -Last growth this AM 02/14 1558g EFW >99%, AC >99% -Dated by 7w US Hx of manual extraction Hx of D&Cs x6 -Hx of placenta manual extraction in G1 -D&C in G4 after 16w loss for placenta and bleeding -Reports about 6 D&Cs in past heavy bleeding Asthma -Sports induced -Asymptomatic Tobacco Abuse -1/2 PPD -Continue NRT Desire for BTL -Desires permament sterilization -Consent signed IUP @ 28w1d - Dating by \\ US - Cephalic 02/15 - Monitoring:CEFM - Diet:Gestational CCD - BMZ x2 on 02/15-02/16 Further plan pending d/w attending. BROOKE ESPARZA DO 02/17/2024, 5:17 AM Associated attestation - Nicol Interiano MD - 02/17/2024 2:58 PM EDT I independently saw and evaluated the patient. I agree with the findings and plan of care as documented in the resident's note. Some intermittent pain had an exam without change. Reports significant anxiety and PTSD requesting ultrasound tomorrow no vaginal bleeding Cat 1 tracing and no obvious contractions Discussed the difficulty in control of BGT and the significant increase in her BGT, wants to take short acting 10 min prior to meal and would prefer 2 hour values over one hour and discussed concerns today 34 yr old at 28 1/7 GA with the following: PPROM with cerclage placement this . CERCLAGE OUT> History of PPROM/PTD/demise and subsequent chorio with her recent G4. She is cephalic on 02/17/24 ultrasound. Continue to expectantly manage as long as no signs of chorioamnionitis, labor or bleeding. NT fundus today and otherwise stable Prematurity 02/15/24 scan at her OB revealed overgrowth and this was discussed and s/p consultation with higher risk for hypoglycemia given prematurity and higher BGT post steroids. Patient reports being "controlled" this but has recently been taking in more sugar from Popsickle consumption over the past few days prior to admission. S/p magnesium for neuroprotection, okay for bolus only 4gm IV if > 72 hours from original dosing. Currently s/p BMZ now x 2 with significant increases in her BGT while hospitalized. No tocolysis is indicated given PPROM T2DM split dose insulin will add extra NPH at noon today, continued dosing of SSI and continued Metformin 1000mg BID. Discussed concerns with resistance and suspect based upon ultrasound prior to admission and her current numbers she has not been optimized this . Okay for 2 hour BGT and pre-meal dosing of short acting is fine continue to hope for better control today with significant increase. Follow over the next 24 hours as she is at increased risk for hypoglycemia History of demise after PPROM at periviable GA poor obstetrical history consider CLP consult given her possible concerns for PTSD and discussed increasing Zoloft to 150mg daily and Visteril prn for her current anxiety History of manual extraction of placenta and D&C would consent again after this delivery given history at risk for PPH, OB team is aware Asthma sports induced Tobacco usage offer replacement Desire for BTL will sign consent but if vaginal this may need to be performed as interval care all through [facility] offer Tdap + flu shot while IP if stable gHTN isolated BP 154/75 today will repeat and if persistently mild will plan on pre-eclampsia work up normal CMP and platelets this admission no Protein to creatinine ratio performed. Will obtain this may not be accurate given PROM. No BP meds at this time are recommended will continue to follow Ongoing IP management and control of T2DM with expectant management s/p cerclage removal. No signs of chorio and follow closely for any signs. Okay for continued latency ABX and completion of BMZ today. S/p IV magnesium for neuroprotection. SCD while in the bed now as well given her obesity may need to consider Lovenox if stable over the next 24-48 hours given her BMI. Okay for if labor or planned IOL if continued cephalic presentation. At risk for PPH and retained placenta will address with OB team as may need a second IV/consideration of D&C consent if labor. Hemoglobin is currently 11.1 I spent 30 minutes in the visit today on the floor reviewing the chart, discussing the case with the residency staff and nursing Nicol Interiano MD Images from the original note were not included. Notified by RN of pinching vaginal sensation that acutely changed. Patient resting in bed comfortable appearing. SSE perfomed, cervix difficult to see, but multiparous appearing. SVE performed and closed. FHT Cat I. No CTX on toco. Patient recently received vistaril for anxiety. Plan for tylenol and heating pad. Will continue to monitor at this time. Patient states she is feeling more pressure. Repeat SSE unchanged from prior. No contractions on toco. Will continue to monitor at this time. FHT remains Cat I and VSS. Pauline Zacarias DO 02/16/2024 12:27 PM Images from the original note were not included. Maternal Medicine Service Resident Progress Note 02/16/2024 6:13 AM 02/15/2024 Hospital Day: 2 Charmaine Avila, 34 y.o. 29w5d Patient has been seen and examined. Pt reports intermittent twinges of pressure and pain that shoots from the top of her abdomen to her inner thighs. Abdomen overall nontender to palpation and patietn remains afebrile. Discussed repeating SSE this Am and concern for laboring with cerclage in place. Positive movement Negative vaginal bleeding Positive LOF Positive Contractions Vitals: 02/16/24 0312 02/16/24 0400 02/16/24 0405 02/16/24 0428 BP: Pulse: 110 97 Resp: Temp: 36.7 C (98.1 F) TempSrc: Oral SpO2: Weight: 245 lb (111 kg) Height: 5' 8" (1.727 m) FHT: 140, moderate variability Accels: present Decels: absent Contractions: none Physical Exam: Gen: NAD HEENT: Normocephalic, Atraumatic, EOMI, MMM Resp: Equal chest rise bilaterally Abd: soft, gravid, NTND, no rebound, no guarding. No fundal tenderness Ext: No LE edema, no calf tenderness or swelling Medications: Current Facility-Administered Medications Medication Dose Route Frequency Provider Last Rate Last Admin ampicillin (Omnipen) 2,000 mg in sodium chloride 0.9 % 100 mL IVPB 2,000 mg IntraVENous 4 times per day Irasema Paredes DO Stopped at 02/16/24 0114 Followed by [START ON 02/18/2024] amoxicillin (Amoxil) capsule 500 mg 500 mg Oral 3 times per day Irasema Paredes DO azithromycin (Zithromax) 500 mg in sodium chloride 0.9 % 250 mL IVPB (ADD-Sabina) 500 mg IntraVENous q24h Irasema Schlieper, DO Stopped at 02/15/242358 Followed by [START ON 02/17/2024] azithromycin (Zithromax) tablet 500 mg 500 mg Oral Daily Irasema Schlieper, DO betamethasone acetate-betamethasone sodium phosphate (Celestone) injection 12 mg 12 mg IntraMUSCular q24h Vikki Díaz, DO 12 mg at 02/16/24 0439 calcium gluconate 10 % injection 1 g 1 g IntraVENous PRN Irasema Schlieper, DO cyclobenzaprine (Flexeril) tablet 5 mg 5 mg Oral Once Irasema Schlieper, DO dextrose 5 % and sodium chloride 0.45 % infusion 125 mL/hr IntraVENous Continuous Irasema Schlieper, DO 125 mL/hr at 02/15/24 2259 125 mL/hr at 02/15/24 225 dextrose 5 % infusion 100 mL/hr IntraVENous PRN Irasema Schlieper, DO dextrose 50 % solution 12.5 g 12.5 g IntraVENous PRN Irasema Schlieper, DO glucagon (human recombinant) injection 1 mg 1 mg IntraMUSCular PRN Irasema Schlieper, DO glucose oral gel 15 g 15 g Oral PRN Irasema Schlieper, DO influenza vac tiss-cult subunt (Flucelvax) injection 0.5 mL 0.5 mL IntraMUSCular Once Irasema Schlieper, DO insulin regular 100 units in 100 mL NS (Myxredlin) infusion (premix) 1-50 Units/hr IntraVENous Continuous Irasema Schlieper, DO 4 mL/hr at 02/16/24 0424 4 Units/hr at 02/16/24 0424 magnesium sulfate 20 GM/500ML infusion 1,000 mg/hr IntraVENous Continuous Irasema Schlieper, DO 25 mL/hr at 02/15/24 2350 1,000 mg/hr at 02/15/24 235 nicotine (Nicoderm, Step 1) 21 MG/24HR patch 1 patch 1 patch TransDERmal Daily Vikki Díaz, DO Followed by [START ON 03/29/2024] nicotine (Nicoderm, Step 2) 14 MG/24HR patch 1 patch 1 patch TransDERmal Daily Vikki Díaz, DO Followed by [START ON 04/12/2024] nicotine (Nicoderm, Step 3) 7 MG/24HR patch 1 patch 1 patch TransDERmal Daily Vikki Bre, DO nicotine polacrilex (Nicorette) gum 4 mg 4 mg Mouth/Throat q1h PRN Vikki Bre, DO ondansetron ODT (Zofran-ODT) disintegrating tablet 4 mg 4 mg Oral q8h PRN Irasema Schlieper, DO Or ondansetron (Zofran) injection 4 mg 4 mg IntraVENous q6h PRN Irasema Schlieper, DO 4 mg at 02/15/24 2359 polyethylene glycol (PEG) 3350 (Miralax) packet 17 g 17 g Oral Daily PRN Irasema Schlieper, DO vitamin tablet 1 tablet Oral Daily Irasema Schlieper, DO sertraline (Zoloft) tablet 100 mg 100 mg Oral Nightly Vikki [place], DO 100 mg at 02/15/24 2302 sodium chloride 0.9 % infusion 5-250 mL/hr IntraVENous PRN Irasema Schlieper, DO sodium chloride 0.9% (NS) flush 10 mL 10 mL IntraVENous 2 times per day Irasema Schlieper, DO sodium chloride 0.9% (NS) flush 10 mL 10 mL IntraVENous PRN Irasema Schlieper, DO Assessment/Plan: Charmaine Avila is a 34 y.o. female 29w5d PPROM Cerclage in PLACE Hx of PPROM/PTD -G3 2016 25w following PPROM -G4 16w Demise following PPROM, diagnosed with chorio during that time -Follows with Dr. Bravo/Dr. Sanon in [place]/[facility], records requested -Reviewed all labs, visits and US on phone, compliant with care, NOB labs wnl -Cerclage was placed in 12w for hx of PTD -SROM at 2000 for clear fluid -Grossly ruptured in triage, pooling, and nitrazine and ferning positive -Cerclage in place, appears without tension, cervix visually closed -DVP 3.6cm on BSUS, vertex -Latency abx ordered -BMZx1 at 0439 on 02/15 -Magnesium sulfate ordered for neuroprotection -RHYTHMIC GYMNASTICS COACH notified -Last growth this AM 02/14 1558g EFW >99%, AC >99% -BPP ordered for AM -Plan for removal of cerclage if increasing pain, bleeding or signs of infection -Overnight, patient remained afebrile and normotensive; abdomen nontender on exam this Am and patient reports no abnormal bloody or purulent discharge - Repeat SSE unchanged from admission and SVE closed; will continue to monitor T2DM -Diagnosed after G4 -GDMA with all other pregnancies -When not , reports diet controlled, no medications -last HgbA1c 6.5 in December, reordered on admission -Compliant on BASA daily -Current medications: Metformin 1000mg BID, NPH 24u nightly and Log 25u TID with meals -BGT on admission 233 -Reports pizza at 1600, states that she was "too busy" to take insulin at all today -Per Dr. Miranda, plan to start insulin drip -Hx of Dexcom use this , not currently wearing due to rash -Consider replacement when admitted -Overnight BGTs remained elevated >200s; reached out to Dr. Montero who recommended running the drip at 4 units/hr as patients insulin requirments would calculate out to that - BGTs did trend to under 200s 3x in a row - After persistently under 200s, BMZ x 1 given at 0439 on 02/[address] Miranda -NPO currently -CBC and CMP pending this Am tHTN -Mild range BP 02/14 2307 -PreE labs negative on admission Hx of Demise Anxiety -G4 16w 2022, no heart rate at time of delivery -Per patient, was diagnosed with chorio -Continue home Zoloft 100mg nightly -CLP consult to be considered Estimated LGA Hx of Macrosomia -G1/G2 both babies and 9lb3oz, 9lb2oz -Last growth this AM 02/14 1558g EFW >99%, AC >99% -Dated by 7w US Hx of manual extraction Hx of D&Cs x6 -Hx of placenta manual extraction in G1 -D&C in G4 after 16w loss for placenta and bleeding -Reports about 6 D&Cs in past heavy bleeding Asthma -Sports induced -No hospitalizations or intubations -No albuterol use Tobacco Abuse -1/2 PPD -NRT ordered on admission Desire for BTL -Desires permament sterilization -Discussed risk of regret, permanence of procedure and timing -Consent to be signed IUP @ 29w5d - Dating by 7w US - Vertex on 02/14 - Monitoring: CEFM - Diet: NPO - BMZ deferred Further plan pending d/w attending. Pauline Zacarias, 02/16/2024, 6:13 AM Associated attestation - Nicol Interiano MD - 02/18/2024 1:02 PM EDT I independently saw and evaluated the patient. I agree with the findings and plan of care as documented in the resident's note. Admitted overnight on insulin gtt managed by ICU overnight and given BMZ this am told to come to [facility] to avoid "being from her baby" normally gets all cares at [facility]. Reports pain in lower abdomen and is concerned given her history of infection regarding keeping the cerclage in place. No vaginal bleeding, clear fluid Cat 1 tracing difficult to monitor contractions, but palpated contraction at the bedside 34 yr old at 28 0/7 GA with the following: PPROM with cerclage placement this . History of PPROM/PTD and subsequent chorio with her recent G4. Given her current contractions with pain will remove the cerclage. She is cephalic on today's ultrasound and discussed the R/B/A of cerclage removal vs keeping in place and the controversy with patients. Higher risk for sepsis with cerclage left in situ and given her current borderline pulse of 94-110 and elevated WBC along with her history plan removal. Discussed by removing this does not necessarily mean she will go on to labor and delivery and would still expectantly manage as long as no signs of chorioamnionitis Prematurity yesterday scan at her OB revealed overgrowth and this was discussed and plan for consultation with higher risk for hypoglycemia given prematurity and higher BGT. Patient reports being controlled this but has recently been taking in more sugar from Popsickle consumption. On magnesium for neuroprotection, okay to discontinue at 12 hours. BMZ x one with repeat planned. No tocolysis is indicated given PPROM T2DM on insulin gtt overnight per Dr. Miranda managed by ICU attending. Will discontinue to plan for split dose insulin and continued Metformin 1000mg BID History of demise after PPROM at periviable GA poor obstetrical history consider CLP consult given her possible concerns for PTSD History of manual extraction of placenta and D&C would consent again after this delivery given history at risk for PPH, OB team is aware Asthma spots induced Tobacco usage offer replacement Desire for BTL will sign consent but if vaginal this may need to be performed as interval care all through [facility] offer Tdap + flu shot while IP if stable Ongoing IP management and control of T2DM with expectant management and cerclage removal planned for today. No signs of chorio and follow closely for any signs. Okay for continued latency ABX and plan on BMZ second shot. S/p magnesium for neuroprotection. SCD while in the bed now as well given her obesity. Okay for if labor or planned IOL. At risk for PPH and retained placenta will address with OB team as may need a second IV/consideration of D&C consent if labor. Hemoglobin is currently 11.1 I spent 45 minutes in the visit today on the floor reviewing the chart, discussing the case with the residency staff and nursing Nicol Interiano MD Images from the original note were not included. Department of Obstetrics and Gynecology Labor and Delivery Triage Note CHIEF COMPLAINT: r/o PPROM HISTORY OF PRESENT ILLNESS: The patient is a 34 y.o. 29w4d. OB History 5 Para 3 Term 2 1 AB 1 Living 3 SAB 1 IAB Ectopic Multiple Live Births 3 Patient presents with a chief complaint as above. Reports ROM at 1999. Was filing paperwork and felt a gush of fluid. Follows with Dr. Bravo at [place]/Dr. Sanon at [facility]. Compliant with care. Dated by 7w US. T2DM on insulin. Obesity. Tobacco abuse 1/2 PPD. Hx of PPROM at 16w with demise nad PPROM at 25w with delivery. Otherwise, two term vaginal deliveries both 9lb. Cerclage placed at 12w GA, Surgeries with lap brando, D&Cs x6 (bleeding and following 16w loss) Patient denies any fever, chills, nausea, vomiting, chest pain, shortness of breath, abdominal pain or headaches. Denies DFM/VB/CTX Estimated Due Date: Estimated Date of Delivery: 04/28/24 PAST MEDICAL HISTORY: Past Medical History: Diagnosis Date Asthma Atrial fibrillation (HCC) Diabetes mellitus (HCC) Retained placenta PAST SURGICAL HISTORY: Past Surgical History: Procedure Laterality Date CHOLECYSTECTOMY DILATION AND CURETTAGE OF UTERUS SOCIAL HISTORY: Social History Socioeconomic History Marital status: Single Spouse name: Not on file Number of children: Not on file Years of education: Not on file Highest education level: Not on file Occupational History Not on file Tobacco Use Smoking status: Every Day Current packs/day: 0.50 Types: Cigarettes Smokeless tobacco: Never Substance and Sexual Activity Alcohol use: Not Currently Drug use: Not Currently Sexual activity: Not on file Other Topics Concern Not on file Social History Narrative Not on file Social Determinants of Health Financial Resource Strain: Not on file Food Insecurity: Not on file Transportation Needs: Not on file Physical Activity: Not on file Stress: Not on file Social Connections: Not on file Intimate Partner Violence: Not on file Housing Stability: Not on file MEDICATIONS: Current Facility-Administered Medications: [START ON 02/16/2024] ampicillin (Omnipen) 2,000 mg in sodium chloride 0.9 % 100 mL IVPB, 2,000 mg, IntraVENous, 4 times per day FOLLOWED BY [START ON 02/18/2024] amoxicillin (Amoxil) capsule 500 mg, 500 mg, Oral, 3 times per day, Irasema Schlieper, DO azithromycin (Zithromax) 500 mg in sodium chloride 0.9 % 250 mL IVPB (ADD-Sabina), 500 mg, IntraVENous, q24h FOLLOWED BY [START ON 02/17/2024] azithromycin (Zithromax) tablet 500 mg, 500 mg, Oral, Daily, Irasema Schlieper, DO calcium gluconate 10 % injection 1 g, 1 g, IntraVENous, PRN, Irasema Schlieper, DO dextrose 5 % and sodium chloride 0.45 % infusion, 125 mL/hr, IntraVENous, Continuous, Irasema Schlieper, DO dextrose 5 % infusion, 100 mL/hr, IntraVENous, PRN, Irasema Schlieper, DO dextrose 50 % solution 12.5 g, 12.5 g, IntraVENous, PRN, Irasema Schlieper, DO glucagon (human recombinant) injection 1 mg, 1 mg, IntraMUSCular, PRN, Irasema Schlieper, DO glucose oral gel 15 g, 15 g, Oral, PRN, Irasema Schlieper, DO [START ON 02/16/2024] influenza vac tiss-cult subunt (Flucelvax) injection 0.5 mL, 0.5 mL, IntraMUSCular, Once, Irasema Villagraneper, DO insulin regular 100 units in 100 mL NS (Myxredlin) infusion (premix), 1-50 Units/hr, IntraVENous, Continuous, Irasema [place], DO lactated ringers infusion, 125 mL/hr, IntraVENous, Continuous, Irasema [place]ys[place]per, DO magnesium sulfate 20 GM/500ML infusion, 2,000 mg/hr, IntraVENous, Continuous, Irasema [place]per, DO magnesium sulfate IVPB premix 4,000 mg, 4,000 mg, IntraVENous, Once, Irasemakolby Villagraneper, DO [START ON 02/16/2024] nicotine (Nicoderm, Step 1) 21 MG/24HR patch 1 patch, 1 patch, TransDERmal, Daily FOLLOWED BY [START ON 03/29/2024] nicotine (Nicoderm, Step 2) 14 MG/24HR patch 1 patch, 1 patch, TransDERmal, Daily FOLLOWED BY [START ON 04/12/2024] nicotine (Nicoderm, Step 3) 7 MG/24HR patch 1 patch, 1 patch, TransDERmal, Daily, Vikki Díaz, nicotine polacrilex (Nicorette) gum 4 mg, 4 mg, Mouth/Throat, q1h PRN, Vikki Díaz, ondansetron ODT (Zofran-ODT) disintegrating tablet 4 mg, 4 mg, Oral, q8h PRN OR ondansetron (Zofran) injection 4 mg, 4 mg, IntraVENous, q6h PRN, Irasema Villgaraneper, DO polyethylene glycol (PEG) 3350 (Miralax) packet 17 g, 17 g, Oral, Daily PRN, Irasemakolby Villagraneper, DO [START ON 02/16/2024] vitamin tablet, 1 tablet, Oral, Daily, Irasemakolby Villagraneper, DO sodium chloride 0.9 % infusion, 5-250 mL/hr, IntraVENous, PRN, Irasema Schlieper, DO sodium chloride 0.9% (NS) flush 10 mL, 10 mL, IntraVENous, 2 times per day, Irasema Schlieper, DO sodium chloride 0.9% (NS) flush 10 mL, 10 mL, IntraVENous, PRN, Irasema Paredes, DO CARE: Complicated by: Hx of PPROM x2 Hx of PTD Obesity Tobacco abuse T2DM Anxiety REVIEW OF SYSTEMS: Pertinent items are noted in HPI. APPEARANCE: Pain: no PHYSICAL EXAM: Vital Signs: VS wnl-reviewed/Respirations normal effort Vitals: 02/15/24 2108 BP: 137/73 Pulse: 110 Resp: 15 Temp: 36.8 C (98.2 F) TempSrc: Oral SpO2: 99% Abdomen: soft, nontender, and nondistended Uterus: gravid/non-tender LE Edema: No lower extremity edema present. Speculum Exam: pooled fluid appearing clear, Nitrizine test is positive, Ferning test is positive heart rate: Category I Cervix: Visually closed, cerclage not on tension Contraction frequency: none Membranes: Ruptured clear fluid RESULTS: DVP 3.6cm GENERAL LABS: Recent Results (from the past 24 hour(s)) POCT glucose meter Collection Time: 02/15/24 9:42 PM Result Value Ref Range Glucose 233 (H) 70 - 100 mg/dL TRIAGE COURSE: Vertex on BSUS. Grossly ruptured. Medical, surgical, and meds reviewed. Went through [facility] info on phone. labs reviewed and Wnl. Anatomy US noted. Anterior/fundal placenta. BGT 233. SSE with grossly ruptured clear fluid. Cervix visually closed. Cerclage not on tension. GBS collected. DVP 3.6cm on BSUS. Discussed with Dr. Miranda, will admit for PPROM. Latency abx ordered. Magnesium sulfate for neuroprotection. Plan for insulin gtt.Did not take any insulin today. Last HgbA1c 6.5 in December. Hold on BMZ given BGTs per Carlos. RHYTHMIC GYMNASTICS COACH to be notified. CEFM. Dr. Leo updated Vikki Díaz DO 02/15/2024 10:08 PM IMPRESSION: PPROM DISCUSSED WITH PNC PROVIDER: Dr. Leo, Dr. Miranda DISPOSITION: Admit to PNU documented in this encounter [facility] 02-22-2024 Hospital Discharge instructions Katey Leggett, - 02/22/2024 11:08 AM EDT Images from the original note were not included. Thank you for allowing us to care of you at [facility]. This time can be one of many emotional ups and downs and many changes in your life. In these first weeks try to take good care of yourself because you will likely feel very tired. It may take 4 to 6 weeks to feel like yourself again, and possibly longer if you had a . FOLLOW-UP: Your follow-up care is a wheeler part of your treatment and safety. Follow-up with your OB providerin 4 weeks or as specified by your OB provider. If you had high blood pressure, visit your OB provider within 3-5 days after being home. Most women's blood pressure will return to pre- levels after delivery. However, some patients continue to have problems with their blood pressure, and some even get worse. Very high blood pressure can lead to seizures or stroke which can be life threatening. If ordered by your provider, take your blood pressure at home and call your OB provider if you have a high reading. Your OB provider can write you a prescription for a blood pressure monitor if you do not have one. Be sure to make and go to all appointments, and call your OB provider if you are having problems. It's also a good idea to know your test results and keep a list of the medicines you take. BLEEDING Vaginal bleeding will decrease in amount over the next few weeks. Bleeding may pick pack worker and then decrease again around 7-10 days . Use pads instead of tampons for the bloody flow that may last as long as 2 weeks. You will notice that as your activity increases, your flow may increase. Call your provider if you are saturating one maxi pad in an hour & passing large clots for 3 hours or more. ACTIVITY NO SEXUAL activity for 6 weeks or until advised by your OB provider; Nothing in vagina: intercourse, tampons, or douching. Begin to think about your reproductive life plan. Talk to your OB provider about if and when you would like to get in the future. The recommendation for safe spacing is 18-24 months. Showering is okay; NO tub baths, swimming, or hot tubs. Gradually increase your activity. Resume exercise regimen only after advised by your )OB provider. Avoid lifting anything heavier than ten pounds or a gallon of milk for six weeks. Avoid driving 1 week for vaginal delivery and 2 weeks for section, or longer if you are on prescription pain medicine unless otherwise instructed by your OB provider. Rise slowly from a lying to sitting and then a standing position. Climb stairs carefully. You may feel tired or have a lack of energy. You may continue your vitamin to replenish nutrients post-delivery. Nap when whenever you can to catch up on sleep. EMOTIONS You may feel kaminski, sad, teary, & overwhelmed for the first 2 weeks ; however, feelings of depression may occur any time within the first year after delivery. Contact your OB provider if you feel you may be showing signs of depression, or have thoughts of harming yourself or or anyone.. WOUND CARE For Vaginal Delivery: Shower daily, and cleanse your perineum (bottom) with mild soap from front to back. Use the plastic squirt bottle until bleeding stops each time you use the restroom instead of wiping with toilet paper. Ease soreness of hemorrhoids and the area between your vagina and rectum with ice compresses or witch marilyn pads. If used, stitches will dissolve in 4-6 weeks on their own. You may use a sitz bath or soak in a clean tub with drain open and water running for comfort. Kegel exercises will help restore bladder control. To do these tighten your muscles as if you were stopping your urine flow. Hold for a few seconds and then relax. Do these throughout the day. For Section Delivery: Keep your incision clean and dry. If you had steri-strips you may remove these once they start falling off. If you have josias they need to be removed 3-10 daysafter delivery. If you have steri-strips, remove after 7 - 10 days. Do not wear clothing that irritates the incision line. If your incision is in a crease that is not dry, use a hair-dryer to dry the area 3 times a day. If you develop fever, shaking chills, redness, swelling, drainage or discharge from your wound, or if your wound looks like it is coming apart call your provider immediately. BREAST CARE If you develop a warm, red, tender area on your breast or develop a fever contact your OB provider. If your breasts become engorged ask your provider because treatment can vary according to your needs. DIET & CONSTIPATION Eat a well-balanced diet focusing on foods high in fiber and protein such as: whole grain cereals and breads, fruits and vegetables and legumes (eg, beans, lentils) Drink 8-10 glasses of fluids daily, especially water. Limit caffeine. To avoid constipation you may take a mild feqt-lfa-pfnjbdn stool softener (such as colace) as recommended by your OB provider. SWELLING Try to keep your legs elevated when you are sitting or lying down. Stay hydrated and take walks. If you had high blood pressure, weigh yourself at the same time each day. Write down your weight and take the record to your OB provider appointment. MEDICATIONS Take all medications prescribed for you exactly as ordered. Don't take any drugs not prescribed to you or over the counter medicines unless recommended by your provider. Don't smoke. WHEN TO CALL THE OB PROVIDER Signs of infection, including fever and chills Increased bleeding: soaking more than one pad an hour or passing clots the size of an egg or larger. Wounds that become red, swollen or drain pus Vaginal discharge that smells foul New pain, swelling, or tenderness in your legs Pain that you can't control with the medications you've been given Pain, burning, urgency or frequency of urination, or persistent bleeding in the urine Cough, shortness of breath, or serious difficulty catching your breath Chest pain or pain in the upper right area of your belly Headache (very painful) or vision changes like blurry or double vision, seeing spots or 'auras' Swelling that is worse or weight gain of more than 3 pounds in 3 days Depression, suicidal thoughts, or feelings of harming someone else Breasts that are hot, red and accompanied by fever Any cracking or bleeding from the nipple or areola (the dark-colored area of the breast) SAVE YOUR LIFE: Get Care for these POST- Warning Signs: Call 911 if you have: Pain in chest Obstructed breathing or shortness of breath Seizures Thoughts of hurting yourself or your baby Call your healthcare provider if you have: (if you can't reach your healthcare provider, call 911 or go to an emergency room) Bleeding, soaking through one pad/hour, or blood clots the size of an egg or bigger Incision that is not healing Red or swollen leg, that is painful or warm to touch Temperature of 100.4 F or higher Headache that does not get better, even after taking medicine, or bad headache with vision changes. Contact your healthcare provider and tell them: I delivered on 02/20/2024 and I am having ____(specific warning signs) " In case of an emergency, call 911 immediately. Hypertension Discharge Instructions 1. A blood pressure cuff will be ordered through the [facility] and delivered to your room prior to discharge. On the weekend, it will be sent to your preferred pharmacy. 2. Your nurse will teach you how to use the cuff. 3. In order to take your blood pressure properly, you should: - rest at least 10 minutes before - avoid caffeine, tobacco, or other stimulants at least 30 minutes before - sit with your arm rested at your side with the cuff at the level of your heart when taking a blood pressure 4. Take your blood pressure at least twice a day, in the morning and evening. Keep a record of your blood pressures to bring to the office. A log can be created for you on [employer]. Please ask your nurse how to access it if you are interested in using it. 5. Take any blood pressure medications as prescribed. 6. Call the office if your blood pressure is >150/>100 on two occasions. Go to OB triage if your blood pressure is >160/>110, or if other symptoms arise such as: - a headache not resolved with Tylenol or Motrin - vision changes (examples: blurred vision, spots, floaters) - chest pain or shortness of breath 7. The office will call you to schedule an appointment within 3 days of discharge for a blood pressure check. Call [phone] if the office has not called you within 24 hours. 8. If you are able to take your blood pressure at home, this appointment may be scheduled as a virtual visit. You will need to keep a record of you blood pressures for the doctor to review for this visit to be scheduled virtually. High Blood Pressure in High blood pressure during can by scary. We want to make sure you understand what this means for you, even after delivery. Preeclampsia is one type of blood pressure disorder that starts after 20 weeks gestation but can develop in labor or after giving . Preeclampsia is dangerous and can quickly worsen and lead to preeclampsia with severe features, eclampsia (seizure), HELLP syndrome (liver damage and risk of bleeding) or even stroke. Symptoms of preeclampsia Headache that will not go away even after taking medication Blurred vision or seeing flashes of light or spots Pain in your upper belly or right upper side of your belly If you have any of the above symptoms, call your doctor or chemist proteins (or nurse if you are in the hospital), right away. If ordered by your provider, take your blood pressure at home, and call your OB provider if you have a high reading (140/90 or higher). This means, if the top number (systolic) is higher than 140 or the bottom number (diastolic) is higher than 90 or both the top and bottom numbers are higher than 140/90, call your provider. Your OB provider can write you a prescription for a blood pressure monitor if you do not have one. Take all your medications especially for blood pressure as prescribed by your doctor or chemist proteins. After Delivery Visit your OB provider 3-5 days after being home. Most women's blood pressure will return to pre- levels after delivery. However, some patients continue to have problems with their blood pressure, and some even get worse. Very high blood pressure can lead to seizures or stroke which can be life threatening. Be sure to make and go to all appointments and call your OB provider if you are having problems. It is also a good idea to know your test results and keep a list of the medicines you take. Call your doctor right away for: A bad headache that will not go away even after taking medication Blurred vision or seeing spots or flashes of light Pain in your upper belly or right upper side of your belly Upset stomach or throwing up More swelling than normal Dark urine or not passing as much urine as normal Blood pressure that goes higher Not feeling your baby move as normal Call 911 or go to the Emergency Department if you have: Chest pain Shortness of breath A seizure Signs of a stroke: o BE FAST for Stroke! Balance issues: sudden difficulty walking, dizziness Eyes: sudden loss of vision or double vision Face: face drooping or uneven (ask person to smile) Arm: weakness of arm or leg, especially on one side of the body Speech: slurred speech, difficulty understanding, sudden confusion Terrible headache with sudden onset o It is important to know when symptoms started and get help immediately BE FAST for stroke! Tell 911 or Emergency Department that you are or recently delivered. documented in this encounter [facility] 02-21-2024 Obstetrics Note Patient called for observation of pumping session. Flange size measured during visit. 17mm left nipple, 18 mm right nipple. 22.5 mm flange inserts given. Observation of pumping session during visit. Reviewed feeding plan and goals. Reviewed pump operation, settings frequency and duration. Discussed milk storage guidelines and cleaning of breast pump parts. Towels, basin and dish soap provided to pt for cleaning purposes. All questions answered. Pt verbalizes understanding, and denies questions. Shown section of Taking Care of Yourself and Baby' Booklet. Reviewed milk storage guidelines. Discussed engorgement, plugged ducts and mastitis. Patient encouraged to seek help GEETA for any concerns. phone number and [facility] information shared from booklet. Mom voiced understanding. No further questions. [facility] 02-21-2024 Obstetrics Note Initial visit with . This is patient's fourth . Patient exclusively pumped for 6 months with her last infant. Patient to be set-up with rental breast pump for home from [facility]. Patient has been pumping and seeing drops of colostrum. Patient states pumping has been uncomfortable. Scabs noted on right areola. Encouraged patient to call before next pumping session for observation and flange sizing. Patient verbalized understanding. Patient shown how to call for LC on wall touch pad. [facility] 02-20-2024 Nurse Note Secure message to OB Residents - pt has returned from [facility] - she said baby RN wants OB to know that baby has E.Coli in his blood in case we need to treat mom". [facility] 02-20-2024 Nurse Note Pt left unit via [facility]. RU order received and paperwork signed. [facility] 02-20-2024 Consult note Associated Order (s): IP CONSULT TO ENDOCRINOLOGY Department of Internal Medicine Division of Endocrinology, Diabetes, & Metabolism Endocrinology Note Patient Name: Charmaine Avila : 1990 AGE: 34 y.o. Room/Bed: [facility]/[address] Admission Date: 02/15/2024 Visit Date: 02/20/2024 Reason for Endocrine Consult: DM2 Provider/Team Requesting Consult: OB PCP: No primary care provider on file. 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 [facility] Dr Ramirez ASSESSMENT: DM2 without alf insulin prior to preg S/P C/S 02/19/27 28w4d due to chorio Steroid induced hyperglycemia PLAN: Continue NPH 6 units q am NPH 10 units q hs Humalog 9 units Humalog Low SS ICU goal <180 GMF goal <150 POCT BG ACHS Hypoglycemia management per protocol Carb controlled diet ANTICIPATED ENDOCRINE HOME GOING RECOMMENDATIONS: Optimized for Discharge from Endocrine standpoint: No Home Going Endocrine Rx Recommendations-- TBD Has Dexcom uses intermittently due to issues with site reaction to adhesive--not currently using Outpt Follow Up-- [facility] SUBJECTIVE/HPI: CHIEF COMPLAINT: Chief Complaint Patient presents with Rupture of Membranes Patient admitted after PPROM, received Betamethasone x 2 prior to delivery and received Decadron in [place] Patient resting in bed, states she wants to go see baby at NICU at [facility] but per nursing torres is in until 1300 Patient states pain is managed Denies N/V Ate BF had cream of wheat, eggs, saus Type of DM: hx GDM all preg then DM2 2015 was on Trulicity and metformin August or September of this year off all meds and considered in remission--insulin started with planned preg Onset of DM: 2016 Home DM Medication Regimen: NPH , Humalog 26 units before meals and metformin 1000 mg BID DM control (last A1c/glucose data): Lab Results Component Value Date HGBA1C 7.4 (H) 02/15/2024 Denies retinopathy, neuropathy, nephropathy, CAD Glucose Date/Time Value Ref Range Status 02/20/2024 09:04 AM 305 (H) 70 - 100 mg/dL Final Comment: Caregiver Notified; 02/20/2024 05:20 AM 223 (H) 70 - 100 mg/dL Final 02/19/2024 05:22 PM 99 70 - 100 mg/dL Final 02/19/2024 04:08 PM 98 70 - 100 mg/dL Final 02/19/2024 02:02 PM 116 (H) 70 - 100 mg/dL Final 02/19/2024 11:56 AM 118 (H) 70 - 100 mg/dL Final Review of Systems Constitutional: Positive for fatigue. Cardiovascular: Negative for leg swelling. Endocrine: Positive for polydipsia. Negative for polyphagia and polyuria. Neurological: Negative for numbness. All other systems reviewed and are negative. ROS negative except for those mentioned in HPI. OBJECTIVE: Vitals: 02/20/24 0023 02/20/24 0026 02/20/24 0027 02/20/24 0527 BP: 135/67 146/69 146/69 122/69 Pulse: 93 96 100 85 Resp: 16 16 18 Temp: 37.3 C (99.1 F) 37 C (98.6 F) 36.7 C (98 F) TempSrc: Oral Oral Oral SpO2: 98% 97% 95% Weight: Height: Physical Exam Vitals reviewed. Constitutional: General: She is not in acute distress. Appearance: Normal appearance. She is obese. HENT: Head: Normocephalic. Eyes: Pupils: Pupils are equal, round, and reactive to light. Cardiovascular: Rate and Rhythm: Normal rate and regular rhythm. Pulses: Normal pulses. Heart sounds: Normal heart sounds. Pulmonary: Effort: Pulmonary effort is normal. Breath sounds: Normal breath sounds. Abdominal: General: Bowel sounds are normal. Genitourinary: Comments: Torres intact Musculoskeletal: General: No swelling. Normal range of motion. Cervical back: Normal range of motion. Skin: General: Skin is warm and dry. Comments: Dressing to abd inc clean and dry Neurological: Mental Status: She is alert and oriented to person, place, and time. Psychiatric: Mood and Affect: Mood normal. Behavior: Behavior normal. 24 hour intake/output: Intake/Output Summary (Last 24 hours) at 02/20/2024 0908 Last data filed at 02/20/2024 0434 Gross per 24 hour Intake 1000 ml Output 2710 ml Net -1710 ml Diet: Adult diet Regular Medications (as per EMR): HomeMeds: Current Outpatient Medications Medication Instructions aspirin 81 mg, Oral, Daily insulin glargine (LANTUS) 25 Units, SubCUTAneous, Nightly Insulin Lispro (HUMALOG) 24 Units, SubCUTAneous, 3 times daily with meals Loratadine-Pseudoephedrine (PX ALLERGY RELIEF D, LORATID, PO) Oral metFORMIN (OSM) (FORTAMET) 1,000 mg, Oral, 2 times daily with meals, Do not crush, chew, or split. omeprazole OTC (PRILOSEC OTC) 20 mg, Oral, Daily before breakfast, Do not crush, chew, or split. MV-Min-Fe Fum-FA-DHA ( 1 PO) Oral sertraline (ZOLOFT) 100 mg, Oral, Daily Scheduled Meds:enoxaparin, 60 mg, SubCUTAneous, Daily ferrous sulfate, 325 mg, Oral, BID WC [START ON 02/21/2024] ibuprofen, 600 mg, Oral, q6h [START ON 02/21/2024] influenza, 0.5 mL, IntraMUSCular, Once insulin lispro, 0-6 Units, SubCUTAneous, TID WC And insulin lispro, 0-6 Units, SubCUTAneous, Nightly insulin lispro, 9 Units, SubCUTAneous, TID WC insulin NPH, 10 Units, SubCUTAneous, Nightly insulin NPH, 6 Units, SubCUTAneous, q AM ketorolac, 30 mg, IntraVENous, q6h measles, mumps and rubella, 0.5 mL, SubCUTAneous, Prior to discharge nicotine, 1 patch, TransDERmal, Daily Followed by [START ON 03/29/2024] nicotine, 1 patch, TransDERmal, Daily Followed by [START ON 04/12/2024] nicotine, 1 patch, TransDERmal, Daily vitamin, 1 tablet, Oral, Daily sertraline, 150 mg, Oral, Nightly sodium chloride 0.9%, 5-40 mL, IntraVENous, 2 times per day Tdap-Dtap, 0.5 mL, IntraMUSCular, Prior to discharge Continuous Infusions: PRN Meds:PRN medications: acetaminophen, dextrose, dextrose, diphenhydrAMINE, docusate sodium, famotidine, glucagon (rDNA), glucose, HYDROmorphone OR HYDROmorphone, lanolin, naloxone, ondansetron ODT OR ondansetron, oxyCODONE OR oxyCODONE, simethicone, sodium chloride, sodium chloride 0.9% Diagnostic Workup: I reviewed pertinent Laboratory results, Radiographic results, and Other Clinical Notes at the time of today's encounter. Labs: No components found for: "LABA1C" No components found for: "EAG" No results found for: "NA", "K", "CL", "CO2", "BUN", "CREATININE", "GLUCOSE", "CALCIUM" No results found for: "CHLPL", CHOL No results found for: "TRIG" No results found for: "HDL" No results found for: "LDLCALC" No results found for: "VLDL" No results found for: CHOLHDLRATIO No results found for: "RQVI18PBO" No results found for: "TSH", "X2DYYVI", "W2GPUNY", "THYROIDAB" Radiology reportsas per the Radiologist Radiology: POCT glucose meter Result Date: 02/16/2024 Performed by: [employer] [facility], [address] [place] [address] CLIA ID: [id number] POCT glucose meter Result Date: 02/16/2024 Performed by: [facility], [address] [place] [address] CLIA ID: [id number] POCT glucose meter Result Date: 02/16/2024 Performed by: [email or web address] [facility], [address] [place] [address] CLIA ID: [id number] POCT glucose meter Result Date: 02/16/2024 Performed by: [facility] [email or web address] [facility], [address] [place] [address] CLIA ID: [id number] POCT glucose meter Result Date: 02/16/2024 Performed by: [facility], [address] [facility] [address] CLIA ID: [id number] POCT glucose meter Result Date: 02/16/2024 Performed by: [email or web address] [facility], [address] [facility], [facility] [address] CLIA ID: [id number] biophysical profile wo non stress testing Result Date: 02/16/2024 OBSTETRICS REPORT (Signed Final 02/16/2024 12:48 pm) PATIENT INFO: ID #: [id number] : [birth year] (34 yrs)(F) Name: CHARMAINE AVILA Visit Date: 02/16/2024 08:45 am PERFORMED BY: Attending: Nicol Interiano MD Performed By: Chiquita Hastings Referred By: LARS LEO MD Location: [facility] Visit Type: Inpatient - Hospital SERVICE(S) PROVIDED: BORIS w/out NST [id number] INDICATIONS: Premature rupture of membranes, O42.90 unspecified as to length of time between rupture and onset of labor, unspecified weeks of gestation Obesity AMA Diabetes Cerclage [facility] Patient (Growth 02/14) VITAL SIGNS: Weight (lb): 245 Height: 5'8" BMI: 37.25 EVALUATION: Num Of Fetuses: 1 Heart Rate(bpm): 142 Cardiac Activity: Regular rhythm Lie: Longitudinal Presentation: Cephalic Placenta: Anterior Amniotic Fluid TRACEY FV: Within normal limits TRACEY Sum(cm) %Tile Largest Pocket(cm) 7.7 < 3 4 RUQ(cm) RLQ(cm) LUQ(cm) LLQ(cm) 2.9 0 4 0.8 BIOPHYSICAL EVALUATION: Amniotic F.V: Within normal limits F. Tone: Observed F. Movement: Observed Score: 12/30 F. Breathing: Observed BIOMETRY: GESTATIONAL AGE: Clinical LEELA: 28w 0d LEELA: 05/10/24 Best: 28w 0d Det. By: Clinical LEELA LEELA: 05/10/24 Nicol Interiano MD Electronically Signed Final Report 02/16/2024 12:48 pm - Manudjano live intrauterine at 28w 0d. - The amniotic fluid index is 7.7cm, which is within normal limits. - Reassuring biophysical profile, 12/30. -Cephalic presentation noted today. An anatomy scan has previously been performed at [facility] and she actually had a scan yesterday showing overgrowth and upper limits normal TRACEY at 23 cm see IP note from today Ultrasound is not diagnostic of chromosomal aneuploidy and does not detect all subtle defects. Normal ultrasound findings do not guarantee normal outcomes. POCT glucose meter Result Date: 02/16/2024 Performed by: [facility], [address] [place] [address], [place] [address] CLIA ID: [id number] POCT glucose meter Result Date: 02/16/2024 Performed by: [facility] [place] [facility], [address] [place] [address], [place] [address] CLIA ID: [id number] POCT glucose meter Result Date: 02/16/2024 Performed by: [facility] [place] [facility], [address] [place] [address], [place] [address] CLIA ID: [id number] POCT glucose meter Result Date: 02/16/2024 Performed by: [facility] [place] [facility], [address] [place] [address], [place] [address] CLIA ID: [id number] POCT glucose meter Result Date: 02/16/2024 Performed by: [facility] [place] [facility], [address] [place] [address], [place] [address] CLIA ID: [id number] POCT glucose meter Result Date: 02/16/2024 Performed by: [facility] [place] [facility], [address] [place] [address], [place] [address] CLIA ID: [id number] POCT glucose meter Result Date: 02/16/2024 Performed by: [facility] [place] [facility], [address] [place] [address], [place] [address] CLIA ID: [id number] POCT glucose meter Result Date: 02/16/2024 Performed by: [facility] [place] [facility], [address] [place] [address], [place] [address] CLIA ID: [id number] POCT glucose meter Result Date: 02/16/2024 Performed by: [facility] [place] [facility], [address] [place] [address], [place] [address] CLIA ID: [id number] POCT glucose meter Result Date: 02/16/2024 Performed by: [facility] [place] [facility], [address] [place] [address], [place] [address] CLIA ID: [id number] POCT glucose meter Result Date: 02/16/2024 Performed by: [facility] [place] [facility], [address] [place] [address], [place] [address] CLIA ID: [id number] POCT glucose meter Result Date: 02/16/2024 Performed by: [facility] [place] [facility], [address] [place] [address], [place] [address] CLIA ID: [id number] POCT glucose meter Result Date: 02/15/2024 Performed by: [email or web address] [facility], [address] [place] [address] CLIA ID: [id number] POCT glucose meter Result Date: 02/15/2024 Performed by: [email or web address] [facility], [address] [place] [address] CLIA ID: [id number] History/Other: Past Medical History: Past Medical History: Diagnosis Date Anxiety Asthma Atrial fibrillation (HCC) Diabetes mellitus (HCC) Retained placenta Past Surgical History: Past Surgical History: Procedure Laterality Date CHOLECYSTECTOMY DILATION AND CURETTAGE OF UTERUS Allergy(ies): Allergies Allergen Reactions Codeine jittery Nubain [Nalbuphine] Nausea Only Percocet [Oxycodone-Acetaminophen] Nausea Only Family History: No family history on file. Social History: Social History Tobacco Use Smoking status: Every Day Current packs/day: 0.50 Types: Cigarettes Smokeless tobacco: Never Substance Use Topics Alcohol use: Not Currently Drug use: Not Currently Portions of the information within this encounter were entered using an electronic dictation system. Best attempts were made to edit/proofread the information prior to note completion. Despite the review of information, some errors may remain. If there are questions related to the information contained within the note please contact the signing physician directly. I spent 45 minutes with the pt which involved coordination of care, medical evaluation, review of records, and/or counseling of the pt regarding his/her condition/disease state/prognosis on the date of this note. [employer] 02-20-2024 Consult note Associated Order (s): IP CONSULT TO ENDOCRINOLOGY Department of Internal Medicine Division of Endocrinology, Diabetes, & Metabolism Endocrinology Note Patient Name: Charmaine Avila : 1990 AGE: 34 y.o. [facility] Admission Date: 02/15/2024 Visit Date: 02/20/2024 Reason for Endocrine Consult: DM2 Provider/Team Requesting Consult: OB PCP: No primary care provider on file. 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 [facility] Dr Ramirez ASSESSMENT: DM2 without alf insulin prior to preg S/P C/S 02/19/27 28w4d due to chorio Steroid induced hyperglycemia PLAN: Continue NPH 6 units q am NPH 10 units q hs Humalog 9 units Humalog Low SS ICU goal <180 GMF goal <150 POCT BG ACHS Hypoglycemia management per protocol Carb controlled diet ANTICIPATED ENDOCRINE HOME GOING RECOMMENDATIONS: Optimized for Discharge from Endocrine standpoint: No Home Going Endocrine Rx Recommendations-- TBD Has Dexcom uses intermittently due to issues with site reaction to adhesive--not currently using Outpt Follow Up-- [facility] SUBJECTIVE/HPI: CHIEF COMPLAINT: Chief Complaint Patient presents with Rupture of Membranes Patient admitted after PPROM, received Betamethasone x 2 prior to delivery and received Decadron in [place] Patient resting in bed, states she wants to go see baby at NICU at [facility] but per nursing torres is in until 1300 Patient states pain is managed Denies N/V Ate BF had cream of wheat, eggs, saus Type of DM: hx GDM all preg then DM2 2016 was on Trulicity and metformin August or September of this year off all meds and considered in remission--insulin started with planned preg Onset of DM: 2016 Home DM Medication Regimen: NPH , Humalog 26 units before meals and metformin 1000 mg BID DM control (last A1c/glucose data): Lab Results Component Value Date HGBA1C 7.4 (H) 02/15/2024 Denies retinopathy, neuropathy, nephropathy, CAD Glucose Date/Time Value Ref Range Status 02/20/2024 09:04 AM 305 (H) 70 - 100 mg/dL Final Comment: Caregiver Notified; 02/20/2024 05:20 AM 223 (H) 70 - 100 mg/dL Final 02/19/2024 05:22 PM 99 70 - 100 mg/dL Final 02/19/2024 04:08 PM 98 70 - 100 mg/dL Final 02/19/2024 02:02 PM 116 (H) 70 - 100 mg/dL Final 02/19/2024 11:56 AM 118 (H) 70 - 100 mg/dL Final Review of Systems Constitutional: Positive for fatigue. Cardiovascular: Negative for leg swelling. Endocrine: Positive for polydipsia. Negative for polyphagia and polyuria. Neurological: Negative for numbness. All other systems reviewed and are negative. ROS negative except for those mentioned in HPI. OBJECTIVE: Vitals: 02/20/24 0023 02/20/24 0026 02/20/24 0027 02/20/24 0527 BP: 135/67 146/69 146/69 122/69 Pulse: 93 96 100 85 Resp: 16 16 18 Temp: 37.3 C (99.1 F) 37 C (98.6 F) 36.7 C (98 F) TempSrc: Oral Oral Oral SpO2: 98% 97% 95% Weight: Height: Physical Exam Vitals reviewed. Constitutional: General: She is not in acute distress. Appearance: Normal appearance. She is obese. HENT: Head: Normocephalic. Eyes: Pupils: Pupils are equal, round, and reactive to light. Cardiovascular: Rate and Rhythm: Normal rate and regular rhythm. Pulses: Normal pulses. Heart sounds: Normal heart sounds. Pulmonary: Effort: Pulmonary effort is normal. Breath sounds: Normal breath sounds. Abdominal: General: Bowel sounds are normal. Genitourinary: Comments: Torres intact Musculoskeletal: General: No swelling. Normal range of motion. Cervical back: Normal range of motion. Skin: General: Skin is warm and dry. Comments: Dressing to abd inc clean and dry Neurological: Mental Status: She is alert and oriented to person, place, and time. Psychiatric: Mood and Affect: Mood normal. Behavior: Behavior normal. 24 hour intake/output: Intake/Output Summary (Last 24 hours) at 02/20/2024 0908 Last data filed at 02/20/2024 0434 Gross per 24 hour Intake 1000 ml Output 2710 ml Net -1710 ml Diet: Adult diet Regular Medications (as per EMR): HomeMeds: Current Outpatient Medications Medication Instructions aspirin 81 mg, Oral, Daily insulin glargine (LANTUS) 25 Units, SubCUTAneous, Nightly Insulin Lispro (HUMALOG) 24 Units, SubCUTAneous, 3 times daily with meals Loratadine-Pseudoephedrine (PX ALLERGY RELIEF D, LORATID, PO) Oral metFORMIN (OSM) (FORTAMET) 1,000 mg, Oral, 2 times daily with meals, Do not crush, chew, or split. omeprazole OTC (PRILOSEC OTC) 20 mg, Oral, Daily before breakfast, Do not crush, chew, or split. MV-Min-Fe Fum-FA-DHA ( 1 PO) Oral sertraline (ZOLOFT) 100 mg, Oral, Daily Scheduled Meds:enoxaparin, 60 mg, SubCUTAneous, Daily ferrous sulfate, 325 mg, Oral, BID WC [START ON 02/21/2024] ibuprofen, 600 mg, Oral, q6h [START ON 02/21/2024] influenza, 0.5 mL, IntraMUSCular, Once insulin lispro, 0-6 Units, SubCUTAneous, TID WC And insulin lispro, 0-6 Units, SubCUTAneous, Nightly insulin lispro, 9 Units, SubCUTAneous, TID WC insulin NPH, 10 Units, SubCUTAneous, Nightly insulin NPH, 6 Units, SubCUTAneous, q AM ketorolac, 30 mg, IntraVENous, q6h measles, mumps and rubella, 0.5 mL, SubCUTAneous, Prior to discharge nicotine, 1 patch, TransDERmal, Daily Followed by [START ON 03/29/2024] nicotine, 1 patch, TransDERmal, Daily Followed by [START ON 04/12/2024] nicotine, 1 patch, TransDERmal, Daily vitamin, 1 tablet, Oral, Daily sertraline, 150 mg, Oral, Nightly sodium chloride 0.9%, 5-40 mL, IntraVENous, 2 times per day Tdap-Dtap, 0.5 mL, IntraMUSCular, Prior to discharge Continuous Infusions: PRN Meds:PRN medications: acetaminophen, dextrose, dextrose, diphenhydrAMINE, docusate sodium, famotidine, glucagon (rDNA), glucose, HYDROmorphone OR HYDROmorphone, lanolin, naloxone, ondansetron ODT OR ondansetron, oxyCODONE OR oxyCODONE, simethicone, sodium chloride, sodium chloride 0.9% Diagnostic Workup: I reviewed pertinent Laboratory results, Radiographic results, and Other Clinical Notes at the time of today's encounter. Labs: No components found for: "LABA1C" No components found for: "EAG" No results found for: "NA", "K", "CL", "CO2", "BUN", "CREATININE", "GLUCOSE", "CALCIUM" No results found for: "CHLPL", CHOL No results found for: "TRIG" No results found for: "HDL" No results found for: "LDLCALC" No results found for: "VLDL" No results found for: CHOLHDLRATIO No results found for: "NGDN97DET" No results found for: "TSH", "K7EHLZP", "L5KVDRF", "THYROIDAB" Radiology reportsas per the Radiologist Radiology: POCT glucose meter Result Date: 02/16/2024 Performed by: [email or web address] [place] [facility], [address] [place] [address], [place] [address] CLIA ID: [id number] POCT glucose meter Result Date: 02/16/2024 Performed by: [email or web address] [place] [facility], [address] [place] [address], [place] [address] CLIA ID: [id number] POCT glucose meter Result Date: 02/16/2024 Performed by: [email or web address] [place] [facility], [address] [place] [address], [place] [address] CLIA ID: [id number] POCT glucose meter Result Date: 02/16/2024 Performed by: [email or web address] [place] [facility], [address] [place] [address], [place] [address] CLIA ID: [id number] POCT glucose meter Result Date: 02/16/2024 Performed by: [facility], [address] [place] [address], [place] [address] CLIA ID: [id number] POCT glucose meter Result Date: 02/16/2024 Performed by: [email or web address] [facility], [address] [place] [address], [place] [address] CLIA ID: [id number] biophysical profile wo non stress testing Result Date: 02/16/2024 OBSTETRICS REPORT (Signed Final 02/16/2024 12:48 pm) PATIENT INFO: ID #: [id number] : [birth year] (34 yrs)(F) Name: CHARMAINE AVILA Visit Date: 02/16/2024 08:45 am PERFORMED BY: Attending: Nicol Interiano MD Performed By: Chiquita Hastings Referred By: LARS LEO MD Location: [facility] Visit Type: Inpatient - Hospital SERVICE(S) PROVIDED: BORIS w/out NST [id number] INDICATIONS: Premature rupture of membranes, O42.90 unspecified as to length of time between rupture and onset of labor, unspecified weeks of gestation Obesity AMA Diabetes Cerclage [facility] Patient (Growth 02/14) VITAL SIGNS: Weight (lb): 245 Height: 5'8" BMI: 37.25 EVALUATION: Num Of Fetuses: 1 Heart Rate(bpm): 142 Cardiac Activity: Regular rhythm Lie: Longitudinal Presentation: Cephalic Placenta: Anterior Amniotic Fluid TRACEY FV: Within normal limits TRACEY Sum(cm) %Tile Largest Pocket(cm) 7.7 < 3 4 RUQ(cm) RLQ(cm) LUQ(cm) LLQ(cm) 2.9 0 4 0.8 BIOPHYSICAL EVALUATION: Amniotic F.V: Within normal limits F. Tone: Observed F. Movement: Observed Score: 8/8 F. Breathing: Observed BIOMETRY: GESTATIONAL AGE: Clinical LEELA: 28w 0d LEELA: 05/10/24 Best: 28w 0d Det. By: Clinical LEELA LEELA: 05/10/24 Nicol Interiano MD Electronically Signed Final Report 02/16/2024 12:48 pm - Mandujano live intrauterine at 28w 0d. - The amniotic fluid index is 7.7cm, which is within normal limits. - Reassuring biophysical profile, 12/30. -Cephalic presentation noted today. An anatomy scan has previously been performed at [facility] and she actually had a scan yesterday showing overgrowth and upper limits normal TRACEY at 23 cm see IP note from today Ultrasound is not diagnostic of chromosomal aneuploidy and does not detect all subtle defects. Normal ultrasound findings do not guarantee normal outcomes. POCT glucose meter Result Date: 02/16/2024 Performed by: [facility], [address] [place] [address] CLIA ID: [id number] POCT glucose meter Result Date: 02/16/2024 Performed by: [facility], [address] [place] [address] CLIA ID: [id number] POCT glucose meter Result Date: 02/16/2024 Performed by: [facility], [address] [place] [address] CLIA ID: [id number] POCT glucose meter Result Date: 02/16/2024 Performed by: [facility], [address] [place] [address] CLIA ID: [id number] POCT glucose meter Result Date: 02/16/2024 Performed by: [facility], [address] [place] [address] CLIA ID: [id number] POCT glucose meter Result Date: 02/16/2024 Performed by: [facility], [address] [place] [address] CLIA ID: [id number] POCT glucose meter Result Date: 02/16/2024 Performed by: [facility] [place] [facility], [address] [place] [address] CLIA ID: [id number] POCT glucose meter Result Date: 02/16/2024 Performed by: [facility] [place] [facility], [address] [place] [address] CLIA ID: [id number] POCT glucose meter Result Date: 02/16/2024 Performed by: [facility] [place] [facility], [address] [place] [address] CLIA ID: [id number] POCT glucose meter Result Date: 02/16/2024 Performed by: [facility] [place] [facility], [address] [place] [address] CLIA ID: [id number] POCT glucose meter Result Date: 02/16/2024 Performed by: [facility] [place] [facility], [address] [place] [address] CLIA ID: [id number] POCT glucose meter Result Date: 02/16/2024 [facility]formed by: [facility], [address] [place] [address] CLIA ID: [id number] POCT glucose meter Result Date: 02/15/2024 Performed by: [facility], [address] [place] [address] CLIA ID: [id number] POCT glucose meter Result Date: 02/15/2024 Performed by: [facility], [address] [place] [address] CLIA ID: [id number] History/Other: Past Medical History: Past Medical History: Diagnosis Date Anxiety Asthma Atrial fibrillation (HCC) Diabetes mellitus (HCC) Retained placenta Past Surgical History: Past Surgical History: Procedure Laterality Date CHOLECYSTECTOMY DILATION AND CURETTAGE OF UTERUS Allergy(ies): Allergies Allergen Reactions Codeine jittery Nubain [Nalbuphine] Nausea Only Percocet [Oxycodone-Acetaminophen] Nausea Only Family History: No family history on file. Social History: Social History Tobacco Use Smoking status: Every Day Current packs/day: 0.50 Types: Cigarettes Smokeless tobacco: Never Substance Use Topics Alcohol use: Not Currently Drug use: Not Currently Portions of the information within this encounter were entered using an electronic dictation system. Best attempts were made to edit/proofread the information prior to note completion. Despite the review of information, some errors may remain. If there are questions related to the information contained within the note please contact the signing physician directly. I spent 45 minutes with the pt which involved coordination of care, medical evaluation, review of records, and/or counseling of the pt regarding his/her condition/disease state/prognosis on the date of this note. Associated Order(s): IP CONSULT TO PSYCHOLOGY Department of Psychiatry Attending Consult Note Reason for Consult: PPROM, anxiety Consulting Physician: Leonor Royal, Ph.D IDENTIFYING DATA: The patient is a 34 y.o. female 28 07/01 admitted on 02/15/2024 with PPROM. History Obtained From: patient, EMR HISTORY OF PRESENT ILLNESS: Per pt's request her was present for this intake. Pt was alert, oriented, and participated. Pt reported that she was due to PPROM and admission to the hospital; "we lost our baby girl this past March" (16 week - demise following PPROM); pt stated that she is feeling slightly better today and hopeful re: her current situation. Pt reported long standing hx of anxiety. Pt also lives about 1.5 hours away and difficult time being away from her children. Pt denied any SI/HI. At this time, no manic, no psychotic symptoms. Past Psychiatric History: Pt denied any previous psychiatric admissions and no previous suicide attempts. Pt is currently not in counseling. Pt has seen a counselor following her loss at 16 weeks, "helpful at that time." Pt reported that she is taking following psychotropic medications: Zoloft. Pt stated that her dose was recently increased, pt also on Vistaril 25 mg, PRN every 6 hours. Pt denied childhood trauma; currently endorsing anxiety symptoms re: hospital stay, worries re: baby; pt reported long standing history of DAVI. Drug and Alcohol History: Pt denied any alcohol and drug abuse history. Pt reported that she smokes cigarettes, usually pack a day, during she has been smoking up to 10 cigarettes per day - encouraged cessation. Social History: Pt has been for about 1 year, has 3 children from previous marriage (all boys ages 16, 14, and 8 -- her 8 year old was born at 25 weeks and spent 4 months in the NICU). 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 Pt graduated high school; she drives. Lives in a mobile home, a close friend of hers is watching her older children while pt is admitted. MENTAL STATUS EXAM Mental Status Exam: Appearance: hospital gown Behavior: cooperative Activity normal Speech: spontaneous, normal rate Mood: somewhat anxious, Affect: congruent with mood Associations: goal directed Thought content: worries re: baby Thought process: logical, organized Orientation: oriented in all spheres Attention good Concentration good Insight: good Judgment: good Suicidal Intentions: no Suicidal Plan: no Impression : Adjustment reaction with anxiety DAVI PLAN: Session focused on decreasing depressive and anxiety symptoms, and supportive intervention. No SI/HI, pt is very future oriented. Pt declined further assessment for medications at this time, feels they are well managed. Will continue to follow as able during this stay. Pt voiced clear understanding of all treatment plans. Thank you for consulting our services. Associated Order(s): IP CONSULT TO NEONATOLOGY Consult by Neonatology Request by OB: Jaydon Reason for Consult: 28 weeks with PROM, history of delivery, cerclage tHTN, T2DM, macrosomia Medications: Magnesium Sulfate, Ampicillin, Azithromycin, Insulin GTT, Betamethasone given: Labs: Blood type: O positive Antibody: negative GBS: unknown Hepatitis B Ag: negative RPR: NR Rubella: Immune HIV: negative Hepatitis C: negative GC/CT: HSV history: none reported Glucose challenge test: T2DM Present for Consult: Lisa Baby Sex: Male US findings: EDC by: 6 week US EFW: 1558 grams I discussed: Survival statistics Delivery room management: Delayed cord clamping, possible need for CPAP, Oxygen, intubation and surfactant. IV access, possible need for advanced resuscitation, possible need for umbilical lines. Baby is a full resuscitation. Respiratory distress syndrome Feeding with NG tube and benefit of MBM. Mom plans on providing MBM. Fortification of MBM. Feeding readiness and growth expectations, Risk of Necrotizing enterocolitis Jaundice and phototherapy Apnea of prematurity and caffeine Possible need for transfusion Heart Murmur: PDA Neurodevelopmental Outcome and Risk: IVH Retinopathy of prematurity Hearing problems Risk of infection- early and late onset Skin to skin opportunities Physiologic criteria for discharge and timing of discharge estimate from NICU Potential need for transfer to [facility] [place] [facility] if needs esclation of care, based on a variety of factors. Handouts given. No further questions. A/P: Patient is a 34 Year old G 5 P 3 At 28 Weeks With PROM, plan to remove cerclage today 1. Current Management per OB 2. NICU to attend delivery 3. Call NICU if further questions. documented in this encounter [facility] 02-20-2024 Nurse Note Late Entry due to pt care: 0525: RN obtained pt's fasting BGT. Pt's fasting BGT 223. RN notified Dr. Siegel via secure chat regarding pt's BGT. Per Dr. Siegel ok for RN to treat pt's BGT of 223 with insulin using the sliding scale this morning. 0634: RN administered 2 units of Humalog using sliding scale to treat the pt's BGT of 223. [facility] 02-20-2024 Note Patient: Charmaine cleary Procedure Summary Date: 02/20/24 Room / Location: [address] Labor and Delivery Anesthesia Start: 42 Anesthesia Stop: 230 Procedures: DELIVERY (Abdomen) Tubal Ligation (Bilateral: Pelvis) Diagnosis: Surgeons: Marilyn Mendoza MD Responsible Provider: Alhaji Franks MD Anesthesia Type: Spinal ASA Status: 2 Anesthesia Type: spinal, regional Vitals Value Taken Time BP 136/61 02/20/24 0242 Temp 97.9 02/20/24 0242 Pulse 82 02/20/24 0242 Resp 20 02/20/24 0242 SpO2 99 02/20/24 0242 Anesthesia Post Evaluation Patient location during evaluation: PACU Patient participation: complete - patient participated Level of consciousness: awake and alert Pain management: satisfactory to patient Airway patency: patent Dental Injury: no Cardiovascular status: acceptable, blood pressure returned to baseline and hemodynamically stable Respiratory status: acceptable and spontaneous ventilation Hydration status: euvolemic Nausea/Vomiting: controlled No notable events documented. Patient can be discharged once all PACU criteria has been met. [facility] 02-20-2024 Note Patient: Charmaine cleary Procedure Summary Date: 02/20/24 Room / Location: [address] Labor and Delivery Anesthesia Start: 42 Anesthesia Stop: 023 Procedures: DELIVERY (Abdomen) Tubal Ligation (Bilateral: Pelvis) Diagnosis: Surgeons: Marilyn Mendoza MD Responsible Provider: Alhaji Franks MD Anesthesia Type: Spinal ASA Status: 2 Anesthesia Type: spinal, regional Vitals Value Taken Time BP 138/61 02/20/24 0241 Temp 97.9 02/20/24 0241 Pulse 82 02/20/24 0241 Resp 20 02/20/24 0241 SpO2 99 02/20/24 0241 Anesthesia Post Evaluation Patient location during evaluation: bedside Patient participation: complete - patient participated Level of consciousness: awake and alert Pain score: 0 Pain management: satisfactory to patient Multimodal analgesia pain management approach Airway patency: patent Two or more strategies used to mitigate risk of obstructive sleep apnea Cardiovascular status: acceptable and hemodynamically stable Respiratory status: acceptable Hydration status: acceptable No notable events documented. MIPS #430 PONV Patient did not receive an inhalational anesthetic (XX430) MIPS # 424 Perioperative Temperature Management Anesthesia time was 60 minutes or longer (4255F) Anesthesai administered was General (inhalational or TIVA) or Neuraxial block (X0424) At least one body temperature greater than 95.8F/35.5C achieved within the 30 mins immediately prior to or the 15 minutes immediately following anesthesia end time (G9771) MIPS #477 Multimodal Pain Management Emergent case Exlusion- Stop here (M1142) MIPS #404 Anesthesiology Smoking Abstinence The patient is not a current smoker (e.g. cigarette, cigar, pipe, e-cigarette/vaping/marijuana) If no stop here (XX404) I completed my handoff to the receiving clinician during which we: 1. Identified the patient 2. Identified the responsible provider 3. Reviewed the pertinent medical history 4. Discussed the surgical course 5. Reviewed intra-op anesthesia management and issues during anesthesia 6. Set expectations for post-procedure period 7. Allowed opportunity for questions and acknowledgement of understanding. [facility] 02-20-2024 Note Peripheral Block Time Out: 02/20/2024 2:22 AM Patient location during procedure: Procedural Start time: 02/20/2024 2:23 AM End time: 02/20/2024 2:28 AM Reason for block: at surgeon's request and post-op pain management Staffing Performed: EDITORIAL PROJECT MANAGER Resident/EDITORIAL PROJECT MANAGER: Ame Thompson APRN - [place] Preanesthetic Checklist Completed: patient identified, IV checked, site marked, risks and benefits discussed, surgical consent, monitors and equipment checked, pre-op evaluation and timeout performed Region: Trun[place] Primary: TAP (60ml of Bupivacaine 0.375% with dexamethasone 0.01% with epinephrine 1:200,000 divided evenly bilaterally) Peripheral Block Patient position: supine Prep: ChloraPrep Patient monitoring: heart rate, hole digger operator and continuous pulse ox O2: Room air Laterality: bilateral Injection technique: single-shot Guidance: ultrasound guided -image retained in chart, tip of the needle identified by ultraound during injection. Needle Needle: 21G X 110 mm Additional Notes 02/20/2024 2:23 AM Assessment Injection assessment: negative aspiration for heme, no paresthesia on injection, incremental injection and local visualized surrounding nerve on ultrasound Paresthesia pain: none Heart rate change: no Slow fractionated injection: yes Required Documentation: Relevant anatomy identified (Nerves, Vessels, Muscles), Negative for blood on aspiration, Local anesthetic injected incrementally with intermittent aspiration every 5 mL, No EKG changes noted, No symptoms of toxicity, Local anesthetic spread visualized around nerves or plane., Normal resistance with injection, No paresthesias reported by patient during injection and Local anesthetic injected without difficultyMedications [id number]-qarqjebwrro-lwnxtlmki ne (TAP) syringe - Injection 60 mL - 02/20/2024 2:24:00 AM [facility] [facility] 02-20-2024 Note Formatting of this n ote is different from the original. Images from the original note were not included. Patient: Charmaine Avila : 1990 Date of Procedure: 02/20/24 Principal Problem: Premature rupture of membranes Active Problems: Adjustment reaction with anxiety DAVI (generalized anxiety disorder) Pre-operative Diagnosis: 34 y.o. female 28w4d GA Unscheduled Primary PPROM Chorioamnionitis T2DM gHTN Obesity Asthma Desires Permanent Sterilization Post-operative Diagnosis: Same, Hemorrhage Procedure: Primary low transverse section with T-incision, Bilateral Salpingectomy Surgeon: Dr. Marilyn Mendoza Political Geographer(s): Dr. Michael Siegel Anesthesia: Spinal anesthesia, Duramorph, TAP Block Antibiotics: 2 g cefazolin Vaginal Prep (Chlorhexidine): No Total IV Fluids/Blood Products: 2000 ml crystalloid Urine Output: 350 ml Estimated Blood Loss: 1000 ml Quantitative Blood Loss: 1060 ml Drains: Torres Catheter Specimens: Cord Blood, Cord Gases, Bilateral Fallopian Tubes Instrument and Sponge Count: Correct x 2 Complications: hemorrhage secondary to uterine atony and uterine incision requiring T incision Medications: 1g TXA intraoperatively Condition: Stable, transferred to post anesthesia recovery Findings: The uterus, fallopian tubes and ovaries appeared normal. There were no adhesions present. The amnionitic fluid appeared clear. Information: Weight: 1314 g Position: Cephalic Description: Normal INDICATION FOR PROCEDURE: Patient admitted to Labor and Delivery for PPROM. Patient developed fundal tenderness, tachycardia, and increasing WBC concerning for chorioamnionitis. Descision made to proceed with delivery. Patient offered contraction stress test with induction or primary section. Patient elected to proceed with primary section. Patient was consented for a section and was agreeable to blood products as medically indicated. This was an unscheduled section. DESCRIPTION OF PROCEDURE: The patient was taken back to the operating room with running IV fluids. She was given 2 g of Ancef preoperatively for infection prophylaxis. Spinal anesthesia was obtained without difficulty and confirmed to be adequate. She was prepped and draped in the usual sterile fashion, and placed in the supine position with a leftward tilt. Anesthesia was tested and found to be adequate. A Pfannenstiel skin incision was made with the scalpel. The incision was carried through the subcutaneous tissue to the fascia with the Bovie. The fascia was incised in the midline and carried transversely using ga scissors. Kochers were used to grasp the edges of the fascia and sharp and blunt dissection was used to reflect the underlying rectus abdominis muscles. The rectus muscles were in the midline bluntly. The peritoneum was found to be free of adherent bowel and entered bluntly. The peritoneal incision was extended bluntly with good visualization of bladder. The bladder retractor and Swan retractor were placed, and the vesicouterine peritoneum was identified. The lower uterine segment was identified and incised in a low transverse fashion with a scalpel. The hysterotomy was extended bluntly initially and then further extended with bandage scissors. The amniotic cavity was entered and clear amniotic fluid was noted. The fetus was found to be in cephalic presentation. Bladder retractor and Swan retractor were removed. The head was brought to the level of the uterine incision with special care to avoid using the incision as a fulcrum. Fundal pressure was then applied, however the head did not deliver easily. Decision made to make T-incision on the uterus. The infant then delivered without difficulty. The cord was clamped and cut, and the was handed off to NICU personnel standing by. IV pitocin was then started. The placenta was removed with gentle traction and fundal pressure. The uterus was exteriorized and wrapped in a wet lap. The uterine cavity was wiped with a dry lap to assure complete removal of placental membranes. The uterus was noted to be atonic and uterine massage was performed. TXA was given. The uterine incision closed with 0 Monocryl suture in a continuous locked suture fashion. The T incision was closed with 0 Monocryl suture in a continuous locked suture fashion. A second imbricating layer was not performed. A figure of eight suture was placed at the right angle of the hysterotomy due to bleeding. The uterine incision was then found to be hemostatic. With the uterine closure complete and hemostasis achieved, attention was turned to the salpingectomy. Tubes and ovaries were inspected and found to be normal. A jose clamp was used to grasp the left fallopian tube and the fimbriated end was confirmed prior to proceeding. A window was made in an avascular plane in the mesosalpinx. A Koki clamp and Bovie were used to dessicate along the mesosalpinx. The vascular pedicles at the fimbriated end and cornua were clamped, cut, and tied with 0 Vicryl suture. The same procedure was performed on the right fallopian tube without difficulty. The posterior cul de sac was cleared of debris. The uterus was returned into the abdominal cavity. The uterine incision was reinspected and adequate hemostasis was again appreciated. The abdominal cavity was cleared of all clots and debris with wet lap sponges. The fascia was closed with 0 Looped PDS suture in a running fashion at both angles and tied in the midline. The incision was irrigated. The subcutaneous layer closure was performed with 3-0 Monocryl suture in a running fashion. The skin was closed with 4-0 Vicryl suture in a subcuticular fashion. Steri strips and a Silverlon bandage were placed over the incision. All counts were correct times two. Patient was transferred to the recovery room in satisfactory stable condition. VTE Prophylaxis: Prophylactic Dosing until Discharge LABOR DELIVERY ??? SCD's ONLY (labor through ambulation) SCD's PLUS Prophylactic Anticoagulation until discharge SCD's PLUS Prophylactic Anticoagulation for 6 weeks SCD's PLUS Therapeutic Anticoagulation for 6 weeks Vaginal Delivery [] BMI >= 40 kg/m2 Delivery All patients Vaginal Delivery [] BMI >= 40 kg/m2 AND [] Antepartum hospitalization >= 72 hours within the past month Delivery 1 Major Risk Factor: [x] BMI >= 35 kg/m2 [] Low Risk Thrombophilia [] PPH+RBCs, IR, or operation [x] Infection+Antibiotics [] Antepartum hospitalization >= 72 hours within the past month [] PMH: Sickle Cell, SLE, Cardiac Dz, Active IBD, Active Cancer, Nephrotic Syndrome OR 2 Minor Risk Factors: [] Multiple gestation [] Age > 40 [] PPH >= 1,000cc [] (+)FMH of VTE [] Smoker [] Preeclampsia [] BMI >= 40 kg/m2 AND [] Low Risk Thrombophilia OR ANY OF THE FOLLOWING: [] High Risk Thrombophilia without prior VTE [] Low Risk Thrombophilia with (+)FMH of VTE [] Any single prior VTE ANY OF THE FOLLOWING: [] Already on LMWH/UFH [] Multiple prior VTE [] High Risk Thrombophilia with prior VTE Low Risk Thrombophilia: FVL (heterozygous), Prothrombin (heterozygous), Protein C, Protein S High Risk Thrombophilia: FVL (homozygous), Prothrombin (homozygous), FVL+Prothrombin (heterozygous), Antithrombin III, APLS MICHAEL SIEGEL DO 02/20/2024, 3:05 AM Associated attestation - Marilyn Mendoza MD - 02/20/2024 5:58 AM EDT Procedures or Surgery: I was present for all wheeler elements of the procedure or surgery as described in the resident note. [employer] Phone: 02-20-2024 Note Formatting of this n ote is different from the original. Images from the original note were not included. Patient: Charmaine Avila : 1990 Date of Procedure: 02/20/24 Principal Problem: Premature rupture of membranes Active Problems: Adjustment reaction with anxiety DAVI (generalized anxiety disorder) Pre-operative Diagnosis: 34 y.o. female 28w4d GA Unscheduled Primary PPROM Chorioamnionitis T2DM gHTN Obesity Asthma Desires Permanent Sterilization Post-operative Diagnosis: Same, Hemorrhage Procedure: Primary low transverse section with T-incision, Bilateral Salpingectomy Surgeon: Dr. Marilyn Mendoza Political Geographer(s): Dr. Michael Siegel Anesthesia: Spinal anesthesia, Duramorph, TAP Block Antibiotics: 2 g cefazolin Vaginal Prep (Chlorhexidine): No Total IV Fluids/Blood Products: 2000 ml crystalloid Urine Output: 350 ml Estimated Blood Loss: 1000 ml Quantitative Blood Loss: 1060 ml Drains: Torres Catheter Specimens: Cord Blood, Cord Gases, Bilateral Fallopian Tubes Instrument and Sponge Count: Correct x 2 Complications: hemorrhage secondary to uterine atony and uterine incision requiring T incision Medications: 1g TXA intraoperatively Condition: Stable, transferred to post anesthesia recovery Findings: The uterus, fallopian tubes and ovaries appeared normal. There were no adhesions present. The amnionitic fluid appeared clear. Information: Weight: 1314 g Position: Cephalic Description: Normal INDICATION FOR PROCEDURE: Patient admitted to Labor and Delivery for PPROM. Patient developed fundal tenderness, tachycardia, and increasing WBC concerning for chorioamnionitis. Descision made to proceed with delivery. Patient offered contraction stress test with induction or primary section. Patient elected to proceed with primary section. Patient was consented for a section and was agreeable to blood products as medically indicated. This was an unscheduled section. DESCRIPTION OF PROCEDURE: The patient was taken back to the operating room with running IV fluids. She was given 2 g of Ancef preoperatively for infection prophylaxis. Spinal anesthesia was obtained without difficulty and confirmed to be adequate. She was prepped and draped in the usual sterile fashion, and placed in the supine position with a leftward tilt. Anesthesia was tested and found to be adequate. A Pfannenstiel skin incision was made with the scalpel. The incision was carried through the subcutaneous tissue to the fascia with the Bovie. The fascia was incised in the midline and carried transversely using ga scissors. Kochers were used to grasp the edges of the fascia and sharp and blunt dissection was used to reflect the underlying rectus abdominis muscles. The rectus muscles were in the midline bluntly. The peritoneum was found to be free of adherent bowel and entered bluntly. The peritoneal incision was extended bluntly with good visualization of bladder. The bladder retractor and Swan retractor were placed, and the vesicouterine peritoneum was identified. The lower uterine segment was identified and incised in a low transverse fashion with a scalpel. The hysterotomy was extended bluntly initially and then further extended with bandage scissors. The amniotic cavity was entered and clear amniotic fluid was noted. The fetus was found to be in cephalic presentation. Bladder retractor and Swan retractor were removed. The head was brought to the level of the uterine incision with special care to avoid using the incision as a fulcrum. Fundal pressure was then applied, however the head did not deliver easily. Decision made to make T-incision on the uterus. The infant then delivered without difficulty. The cord was clamped and cut, and the infant was handed off to NICU personnel standing by. IV pitocin was then started. The placenta was removed with gentle traction and fundal pressure. The uterus was exteriorized and wrapped in a wet lap. The uterine cavity was wiped with a dry lap to assure complete removal of placental membranes. The uterus was noted to be atonic and uterine massage was performed. TXA was given. The uterine incision closed with 0 Monocryl suture in a continuous locked suture fashion. The T incision was closed with 0 Monocryl suture in a continuous locked suture fashion. A second imbricating layer was not performed. A figure of eight suture was placed at the right angle of the hysterotomy due to bleeding. The uterine incision was then found to be hemostatic. With the uterine closure complete and hemostasis achieved, attention was turned to the salpingectomy. Tubes and ovaries were inspected and found to be normal. A jose clamp was used to grasp the left fallopian tube and the fimbriated end was confirmed prior to proceeding. A window was made in an avascular plane in the mesosalpinx. A Koki clamp and Bovie were used to dessicate along the mesosalpinx. The vascular pedicles at the fimbriated end and cornua were clamped, cut, and tied with 0 Vicryl suture. The same procedure was performed on the right fallopian tube without difficulty. The posterior cul de sac was cleared of debris. The uterus was returned into the abdominal cavity. The uterine incision was reinspected and adequate hemostasis was again appreciated. The abdominal cavity was cleared of all clots and debris with wet lap sponges. The fascia was closed with 0 Looped PDS suture in a running fashion at both angles and tied in the midline. The incision was irrigated. The subcutaneous layer closure was performed with 3-0 Monocryl suture in a running fashion. The skin was closed with 4-0 Vicryl suture in a subcuticular fashion. Steri strips and a Silverlon bandage were placed over the incision. All counts were correct times two. Patient was transferred to the recovery room in satisfactory stable condition. VTE Prophylaxis: Prophylactic Dosing until Discharge LABOR DELIVERY ??? SCD's ONLY (labor through ambulation) SCD's PLUS Prophylactic Anticoagulation until discharge SCD's PLUS Prophylactic Anticoagulation for 6 weeks SCD's PLUS Therapeutic Anticoagulation for 6 weeks Vaginal Delivery [] BMI >= 40 kg/m2 Delivery All patients Vaginal Delivery [] BMI >= 40 kg/m2 AND [] Antepartum hospitalization >= 72 hours within the past month Delivery 1 Major Risk Factor: [x] BMI >= 35 kg/m2 [] Low Risk Thrombophilia [] PPH+RBCs, IR, or operation [x] Infection+Antibiotics [] Antepartum hospitalization >= 72 hours within the past month [] PMH: Sickle Cell, SLE, Cardiac Dz, Active IBD, Active Cancer, Nephrotic Syndrome OR 2 Minor Risk Factors: [] Multiple gestation [] Age > 40 [] PPH >= 1,000cc [] (+)FMH of VTE [] Smoker [] Preeclampsia [] BMI >= 40 kg/m2 AND [] Low Risk Thrombophilia OR ANY OF THE FOLLOWING: [] High Risk Thrombophilia without prior VTE [] Low Risk Thrombophilia with (+)FMH of VTE [] Any single prior VTE ANY OF THE FOLLOWING: [] Already on LMWH/UFH [] Multiple prior VTE [] High Risk Thrombophilia with prior VTE Low Risk Thrombophilia: FVL (heterozygous), Prothrombin (heterozygous), Protein C, Protein S High Risk Thrombophilia: FVL (homozygous), Prothrombin (homozygous), FVL+Prothrombin (heterozygous), Antithrombin III, APLS MICHAEL SIEGEL DO 02/20/2024, 3:05 AM Associated attestation - Marilyn Mendoza MD - 02/20/2024 5:58 AM EDT Procedures or Surgery: I was present for all wheeler elements of the procedure or surgery as described in the resident note. [employer] Phone: 02-20-2024 Note Spinal Block Time Out: 02/20/2024 12:44 AM Patient location during procedure: OR Start time: 02/20/2024 12:45 AM End time: 02/20/2024 12:48 AM Reason for block: primary anesthetic Staffing Performed: EDITORIAL PROJECT MANAGER Resident/EDITORIAL PROJECT MANAGER: Ame Thompson APRN - [facility] Preanesthetic Checklist Completed: patient identified, IV checked, site marked, risks and benefits discussed, surgical consent, monitors and equipment checked, pre-op evaluation and timeout performed Spinal Block Patient position: sitting Prep: ChloraPrep Sterility prep: gloves, hand hygiene and mask Sedation level: light sedation Patient monitoring: continuous pulse oximetry and heart rate Approach: midline Location: L3-4 Injection technique: single-shot Needle Needle type: pencil-tip Needle gauge: 24 G Needle length: 10 cm Medications Administered bupivacaine in dextrose (Marcaine Spinal) 0.75-8.25 % injection - Intrathecal 13.75 mg - 02/20/2024 12:46:00 AM morphine PF (Duramorph) 0.5 MG/ML injection - Intrathecal 200 mcg - 02/20/2024 12:45:00 AM Assessment Sensory level: T4 Block outcome: block to be assessed in the OR Number of attempts: 1 Additional Notes Free flow CSF. No Heme. No Parathesia [facility] 02-20-2024 Note Formatting of this n ote might be different from the original. Safety huddle called to proceed with PCD 2/2 chorio, cat II FHT. FHT cat II for tachycardia. Maintains moderate variability. Cervix checked and remains closed. Discussed with Dr Mendoza and patient, offered PATROL SERGEANT to see if pt could tolerate labor. Patient reports she would rather proceed with PCD. Patient was counseled on section and that the risks include but are not limited to infection, damage to visceral and vascular structures, bleeding and need for blood transfusion, and prolonged hospitalization. Patient voiced her understanding of these risks and is accepting of a blood transfusion if medically necessary. All questions were answered and consents were signed. She received zosyn >1 hr ago, will receive ancef for surgical ppx. Primary RN, conveyor line battery charger, OB anesthesia, NICU, and Dr. Mendoza present and in agreement T [facility] 02-20-2024 Note Formatting of this n ote might be different from the original. Safety huddle called to proceed with PCD 2/2 chorio, cat II FHT. FHT cat II for tachycardia. Maintains moderate variability. Cervix checked and remains closed. Discussed with Dr Mendoza and patient, offered PATROL SERGEANT to see if pt could tolerate labor. Patient reports she would rather proceed with PCD. Patient was counseled on section and that the risks include but are not limited to infection, damage to visceral and vascular structures, bleeding and need for blood transfusion, and prolonged hospitalization. Patient voiced her understanding of these risks and is accepting of a blood transfusion if medically necessary. All questions were answered and consents were signed. She received zosyn >1 hr ago, will receive ancef for surgical ppx. Primary RN, conveyor line battery charger, OB anesthesia, NICU, and Dr. Mendoza present and in agreement T [facility] 02-19-2024 Note Formatting of this n ote might be different from the original. Hospital Day 5; 28/3 weeks today; Mood stable; CLP following; SW in to see patient this afternoon; no needs or concerns for CM at this time; will continue to follow T [facility] 02-19-2024 Note Formatting of this n ote might be different from the original. Hospital Day 5; 28 weeks today; Mood stable; CLP following; SW in to see patient this afternoon; no needs or concerns for CM at this time; will continue to follow T [facility] 02-19-2024 Note Formatting of this n ote might be different from the original. SW consult for resources. Met with pt at bedside. Pt approx 28 wks here for ROM, will be in hospital until delivery. States stressors related to being away from home, over an hour. Partner Adeel at bedside and supportive. Billy has three sons ages 16, 14, 8 who her friend Dior is watching while she is here. States had a 25 wk baby 8 years ago and is familiar with NICU Stay at [facility]. Has gathered many supplies, discussed help after delivery with childrens Sw. Asked about meal passes for partner. Sw provided him with two meal tickets for hospital. Asked about paying for parking, he is in [place] and has been all week. Sw talked to [place] dept who states rate is $7 flat rate no matter how long here. Fob state he can pay that. Pt denied any other needs at this time, Sw remains available if needs arise T [facility] Work Phone: 02-19-2024 Note Formatting of this n ote might be different from the original. SW consult for resources. Met with pt at bedside. Pt approx 28 wks here for ROM, will be in hospital until delivery. States stressors related to being away from home, over an hour. Partner Adeel at bedside and supportive. Billy has three sons ages 16, 14, 8 who her friend Dior is watching while she is here. States had a 25 wk baby 8 years ago and is familiar with NICU Stay at [facility]. Has gathered many supplies, discussed help after delivery with childrens Sw. Asked about meal passes for partner. Sw provided him with two meal tickets for hospital. Asked about paying for parking, he is in [place] and has been all week. Sw talked to [place] dept who states rate is $7 flat rate no matter how long here. Fob state he can pay that. Pt denied any other needs at this time, Sw remains available if needs arise [employer] Work Phone: 02-18-2024 Plan of care note Problem: Antepartum Goal: Maintain as long as maternal and/or condition is stable Outcome: Progressing Problem: Safety - Adult Goal: Free from fall injury Outcome: Progressing The patient is Moderately Stable - Low risk of patient condition declining or worsening The patient's goals for the shift include remain The clinical goals for the shift include pt will have adeequate glucose control with medications [employer] 02-18-2024 Consult note Associated Order (s): IP CONSULT TO PSYCHOLOGY Department of Psychiatry Attending Consult Note Reason for Consult: PPROM, anxiety Consulting Physician: Leonor Royal, Ph.D IDENTIFYING DATA: The patient is a 34 y.o. female 28 2/7 admitted on 02/15/2024 with PPROM. History Obtained From: patient, EMR HISTORY OF PRESENT ILLNESS: Per pt's request her was present for this intake. Pt was alert, oriented, and participated. Pt reported that she was due to PPROM and admission to the hospital; "we lost our baby girl this past March" (16 week - demise following PPROM); pt stated that she is feeling slightly better today and hopeful re: her current situation. Pt reported long standing hx of anxiety. Pt also lives about 1.5 hours away and difficult time being away from her children. Pt denied any SI/HI. At this time, no manic, no psychotic symptoms. Past Psychiatric History: Pt denied any previous psychiatric admissions and no previous suicide attempts. Pt is currently not in counseling. Pt has seen a counselor following her loss at 16 weeks, "helpful at that time." Pt reported that she is taking following psychotropic medications: Zoloft. Pt stated that her dose was recently increased, pt also on Vistaril 25 mg, PRN every 6 hours. Pt denied childhood trauma; currently endorsing anxiety symptoms re: hospital stay, worries re: baby; pt reported long standing history of DAVI. Drug and Alcohol History: Pt denied any alcohol and drug abuse history. Pt reported that she smokes cigarettes, usually pack a day, during she has been smoking up to 10 cigarettes per day - encouraged cessation. Social History: Pt has been for about 1 year, has 3 children from previous marriage (all boys ages 16, 14, and 8 -- her 8 year old was born at 25 weeks and spent 4 months in the NICU). 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 Pt graduated high school; she drives. Lives in a mobile home, a close friend of hers is watching her older children while pt is admitted. MENTAL STATUS EXAM Mental Status Exam: Appearance: hospital gown Behavior: cooperative Activity normal Speech: spontaneous, normal rate Mood: somewhat anxious, Affect: congruent with mood Associations: goal directed Thought content: worries re: baby Thought process: logical, organized Orientation: oriented in all spheres Attention good Concentration good Insight: good Judgment: good Suicidal Intentions: no Suicidal Plan: no Impression : Adjustment reaction with anxiety DAVI PLAN: Session focused on decreasing depressive and anxiety symptoms, and supportive intervention. No SI/HI, pt is very future oriented. Pt declined further assessment for medications at this time, feels they are well managed. Will continue to follow as able during this stay. Pt voiced clear understanding of all treatment plans. Thank you for consulting our services. T [facility] 02-18-2024 Note Nutrition Assessment Type and Reason for Visit: Initial (DT referral for GDM) Nutrition Recommendations/Plan: Continue with gestational carb control diet and will add 15 grams carbohydrate snacks between meals and HS to current diet order. Reinforce diet as needed RD continue to monitor overall nutritional status and follow up weekly Malnutrition Assessment: Malnutrition Status: No malnutrition Context: Acute Illness Nutrition Assessment: Patient IUP @ 28/2 weeks admitted for PPROM. Patient presented to the triage for PPROM at 2000 for clear fluid. No contractions. Confirmed ROM in triage with cerclage in place, not on tension, cervix visually closed. Patient with hx of PPROM/PTD, cerclage was placed in 12w for hx of PTD. Patient with PPROM 02/14; s/p BMZx2 on 02/15-02/16 and s/p magnesium sulfate for neuroprotection. Cerclage removed 02/15 due to concern for infection. Last growth 02/14 1558g EFW >99%, AC >99%. Patient with history of DM (after G4) and is diet controlled when not . Last HgbA1c 7.4% (02/14). Patient now receiving insulin and metformin. Patient ordered gestational carb control diet which is appropriate. Patient sitting in bedside chair hooked to monitors. Patient reports she is tolerating her meals well and understands how many carbs to order with meals. Informed patient she is allowed 15 grams carb between meals and for HS snacks. RD informed RN as well and will add to current diet order. Estimated Daily Nutrient Needs: Energy Requirements Based On: Kcal/kg Weight Used for Energy Requirements: Bucklin Weight for Energy Calculation (kg): 64 kg Total Energy Requirements (kcals/day): 8856-7881 (30-35) Weight Used for Protein Requirements: Bucklin Weight in Kg Used for Protein Requirements: 64 kg Estimated Total Protein (g/day): 77-90 (1.2-1.4) Estimated Daily Total Fluid (ml/day): per MD Nutrition Related Findings: +bowel sounds; no edema noted; Lamont 23; BM 12/17 Wound Type: None BMP: Recent Labs 02/15/24 23002/16/24 0629 NA 134* 135 K 3.8 4.0 CL 109* 111* CO2 17* 18* BUN 9 6* CREATININE 0.36* 0.32* GLUCOSE 178* 170* CALCIUM 9.4 7.8* HEPATIC: Recent Labs 02/15/24 23002/16/24 0629 AST 27 18 ALT 15 14 BILITOT 0.5 0.2 ALKPHOS 118 106 Glucose Date Value Ref Range Status 02/18/2024 58 (L) 70 - 100 mg/dL Final 02/18/2024 129 (H) 70 - 100 mg/dL Final 02/18/2024 103 (H) 70 - 100 mg/dL Final 02/18/2024 103 (H) 70 - 100 mg/dL Final 02/18/2024 79 70 - 100 mg/dL Final 02/17/2024 152 (H) 70 - 100 mg/dL Final Scheduled Meds: amoxicillin, 500 mg, Oral, 3 times per day azithromycin, 500 mg, Oral, Daily cyclobenzaprine, 5 mg, Oral, Once influenza, 0.5 mL, IntraMUSCular, Once insulin lispro, 26 Units, SubCUTAneous, TID WC [START ON 02/19/2024] insulin NPH, 16 Units, SubCUTAneous, qAM AC insulin NPH, 32 Units, SubCUTAneous, qPM metFORMIN, 1,000 mg, Oral, BID WC nicotine, 1 patch, TransDERmal, Daily Followed by [START ON 03/29/2024] nicotine, 1 patch, TransDERmal, Daily Followed by [START ON 04/12/2024] nicotine, 1 patch, TransDERmal, Daily , 1 tablet, Oral, Daily sertraline, 150 mg, Oral, Nightly sodium chloride 0.9%, 10 mL, IntraVENous, 2 times per day Current Nutrition Therapies: Adult diet Regular; Gestational (30-45-60 gm/meal) Current Oral Intake Average Meal Intake: 76-100% Average Supplements Intake: None Ordered Anthropometric Measures: Height: 172.7 cm (5' 8") Admission Body Weight: 111 kg (245 lb) Usual Body Weight: 110 kg (242 lb) (02/15/24) Bucklin Body Weight (lbs) (Calculated): 140 lbs Bucklin Body Weight (Kg) (Calculated): 64 kg Nutrition Diagnosis: Increased nutrient needs related to increase demand for energy/nutrients as evidenced by (IUP) Altered nutrition-related lab values related to endocrine dysfuntion as evidenced by lab values Nutrition Interventions: Nutrition Education/Counseling: No recommendation at this time Coordination of Nutrition Care: Continue to monitor while inpatient Goals: Goals: Meet at least 75% of estimated needs, by next RD assessment Nutrition Monitoring and Evaluation: Behavioral-Environmental Outcomes: None Identified Food/Nutrient Intake Outcomes: Food and Nutrient Intake Physical Signs/Symptoms Outcomes: Biochemical Data, GI Status, Fluid Status or Edema, Skin, Weight Discharge Planning: Too soon to determine Daphney Toro, MS RD LD Contact: Settle or *[id number] [facility] 02-18-2024 Note Formatting of this n ote might be different from the original. Hospital Day 4; 28/2 weeks today; Mood stable; No concerns or needs voiced at this time [facility] 02-18-2024 Note Formatting of this n ote might be different from the original. Hospital Day 4; 28/2 weeks today; Mood stable; No concerns or needs voiced at this time T [facility] 02-17-2024 Telephone encounter Note ADDENDUM- pt is admitted [facility] until delivery Due to PROM Dr Ramirez Pt missed appointment today- see if she can come tomorrow at 840 (or thursday at 1pm) virtual Thanks KB Sent her the following: Hi Charmaine- you did not log on for your appointment today (?)- you are due for a f/u I am going to ask my office to reach out and see if you can be added on thursday afternoon- I want to talk to you about your blood sugars- these numbers are quite elevated for and we need to get these down geeta Dr Ramirez [facility] 02-17-2024 Miscellaneous Notes ADDENDUM- pt is admitted [facility] until delivery Due to PROM Dr Ramirez Pt missed appointment today- see if she can come tomorrow at 840 (or thursday at 1pm) virtual Thanks KB Sent her the following: Obinna Montano- you did not log on for your appointment today (?)- you are due for a f/u I am going to ask my office to reach out and see if you can be added on thursday afternoon- I want to talk to you about your blood sugars- these numbers are quite elevated for and we need to get these down geeta Dr Ramirez documented in this encounter [facility] 02-17-[address] chino notified of mbs [address] [facility] 02-17-2024 Plan of care note The patient is Moderately Stable - Low risk of patient condition declining or worsening The patient's goals for the shift include stay The clinical goals for the shift include stay Over the shift, the patient did not make progress toward the following goals. Barriers to progression include PPROM. Recommendations to address these barriers include continuous assessment of maternal and status.. [facility] 02-16-2024 Note Formatting of this n ote might be different from the original. Date: 02/16/2024 Name: Charmaine Avila : 1990 [facility] Patient Information Primary Caregiver: Self Accompanied by/Relationship: S/O;Family Marital Status: Single Support System: SO/Family Bahai/Cultural Factors: None Activities of Daily Living Communication: See demographics Living Arrangements Current Residence: Private residence Lives With: S/O; Family Support System: S/O; Family Income Information Income Source: Not Employed Financial Resource Strain How hard is it for you to pay for the very basics like food, housing, medical care and heating? N/A Housing Stability In the last 12 months, was there a time when you did not have a steady place to sleep or slept in a prison (including now)? No Transportation Needs Has the lack of Transportation kept you from medical appointments? No In the past 12 months, has the lack of transportation kept you from meetings, work, or from getting things needed for daily living? No Food Insecurity Within the past 12 months, have you worried that your food would run out before you got the money to buy more? No Stress Do you feel stress - tense, restless, nervous, or anxious, or unable to sleep at night because you mind is troubled all the time? Mood stable Referral To Financial Resources: N/A Community Resources: PNU folder given upon admission to PNU Unit Social Work: Yes; Pt would like to discuss resources CLP:Declines at this time Medical Information admitted at 29/4 weeks for PPROM; s/p cerclage removal earlier today; Hx PPROM/PTD; T2DM; tHTN; Hx demise, anxiety, continues on Zoloft; CLP declined at this time per patient; Asthma; Nicotine use Discharge Plan Home or Community Resources: PNU Admission folder given upon admission to unit Equipment: N/A Education Given: PNU admit folder and see Education Tab Additional Information: N/A Mental Health Services: N/A Developmental Delay: N/A Children's Services: N/A [facility] 02-16-2024 Note Formatting of this n ote might be different from the original. Date: 02/16/2024 Name: Charmaine Avila : 1990 [facility] Patient Information Primary Caregiver: Self Accompanied by/Relationship: S/O;Family Marital Status: Single Support System: SO/Family Bahai/Cultural Factors: None Activities of Daily Living Communication: See demographics Living Arrangements Current Residence: Private residence Lives With: S/O; Family Support System: S/O; Family Income Information Income Source: Not Employed Financial Resource Strain How hard is it for you to pay for the very basics like food, housing, medical care and heating? N/A Housing Stability In the last 12 months, was there a time when you did not have a steady place to sleep or slept in a prison (including now)? No Transportation Needs Has the lack of Transportation kept you from medical appointments? No In the past 12 months, has the lack of transportation kept you from meetings, work, or from getting things needed for daily living? No Food Insecurity Within the past 12 months, have you worried that your food would run out before you got the money to buy more? No Stress Do you feel stress - tense, restless, nervous, or anxious, or unable to sleep at night because you mind is troubled all the time? Mood stable Referral To Financial Resources: N/A Community Resources: PNU folder given upon admission to PNU Unit Social Work: Yes; Pt would like to discuss resources CLP:Declines at this time Medical Information admitted at 29/4 weeks for PPROM; s/p cerclage removal earlier today; Hx PPROM/PTD; T2DM; tHTN; Hx demise, anxiety, continues on Zoloft; CLP declined at this time per patient; Asthma; Nicotine use Discharge Plan Home or Community Resources: PNU Admission folder given upon admission to unit Equipment: N/A Education Given: PNU admit folder and see Education Tab Additional Information: N/A Mental Health Services: N/A Developmental Delay: N/A Children's Services: N/A T [facility] 02-16-2024 Consult note Associated Order (s): IP CONSULT TO NEONATOLOGY Consult by Neonatology Request by OB: Jaydon Reason for Consult: 28 weeks with PROM, history of delivery, cerclage tHTN, T2DM, macrosomia Medications: Magnesium Sulfate, Ampicillin, Azithromycin, Insulin GTT, Betamethasone given: Labs: Blood type: O positive Antibody: negative GBS: unknown Hepatitis B Ag: negative RPR: NR Rubella: Immune HIV: negative Hepatitis C: negative GC/CT: HSV history: none reported Glucose challenge test: T2DM Present for Consult: Lisa Baby Sex: Male US findings: EDC by: 6 week US EFW: 1558 grams I discussed: Survival statistics Delivery room management: Delayed cord clamping, possible need for CPAP, Oxygen, intubation and surfactant. IV access, possible need for advanced resuscitation, possible need for umbilical lines. Baby is a full resuscitation. Respiratory distress syndrome Feeding with NG tube and benefit of MBM. Mom plans on providing MBM. Fortification of MBM. Feeding readiness and growth expectations, Risk of Necrotizing enterocolitis Jaundice and phototherapy Apnea of prematurity and caffeine Possible need for transfusion Heart Murmur: PDA Neurodevelopmental Outcome and Risk: IVH Retinopathy of prematurity Hearing problems Risk of infection- early and late onset Skin to skin opportunities Physiologic criteria for discharge and timing of discharge estimate from NICU Potential need for transfer to [facility] if needs esclation of care, based on a variety of factors. Handouts given. No further questions. A/P: Patient is a 34 Year old G 5 P 3 At 28 Weeks With PROM, plan to remove cerclage today 1. Current Management per OB 2. NICU to attend delivery 3. Call NICU if further questions. Pulse 8 [employer] Work Phone: 02-16-2024 Note Formatting of this n ote might be different from the original. Patient with elevated WBC at 16.5 and patient's pulse elevated 100-110s. Patient was significant history of PTL and chorioamnionitis. Due to this, decision made to proceed with cerclage removal. Patient was placed in the dorsal lithotomy position. Dr. Chu at bedside to remove cerclage. Speculum inserted and clear view of blue strings optained. Elevated with long pick ups and left side of suture cut below knot. Cerclage removed in 1 pull. SVE after removal was 0/50/-3. Will continue to monitor for signs of PTL. FHT remains Cat I at this time with moderate variability and accelerations. Pauline Zacarias DO 02/16/2024 10:[address] [facility] [employer] 02-16-2024 Note Formatting of this n ote might be different from the original. Patient with elevated WBC at 16.5 and patient's pulse elevated 100-110s. Patient was significant history of PTL and chorioamnionitis. Due to this, decision made to proceed with cerclage removal. Patient was placed in the dorsal lithotomy position. Dr. Chu at bedside to remove cerclage. Speculum inserted and clear view of blue strings optained. Elevated with long pick ups and left side of suture cut below knot. Cerclage removed in 1 pull. SVE after removal was 0/50/-3. Will continue to monitor for signs of PTL. FHT remains Cat I at this time with moderate variability and accelerations. Pauline Zacarias, DO 02/16/2024 10:[address] [facility] 02-16-2024 Telephone encounter Note 3rd risk assessment form submitted 02/16/24 Nallely Barbosa RN [facility] 02-16-2024 Miscellaneous Notes 3rd risk assessment form submitted 02/16/24 Nallely Barbosa RN documented in this encounter [facility] 02-16-2024 Note Formatting of this n ote might be different from the original. Images from the original note were not included. Late note due to patient care. Been in patient's room a number of times this evening. Consented for BTL, form in chart. Patient was complaining of some intermittent cramping but was not requiring pain medications. Cat I FHT. Had rare variable deceleration. Remained reassuring with moderate variability. TOCO adjusted many times. Discussed with patient insulin gtt. Insulin on admisison was 233. Placed on drip and down to 213, 192 and [address] Miranda who recommended that if BGT dropped to 175 or lower, then plan for BMZ. Next BGT was elevated at 206. Dr. Miranda updated. Magnesium sulfate running for neuroprotection. Urine output adequate per RN. Discussed that if Cat II FHT, vaginal bleeding or worsening pain, will plan to remove the cerclage. At this time, plan to keep the cerclage in place. NICU consulted. Followup BGT was 206. RN not aware of patient snacking as patient is NPO. Patient has been napping on my exam. Discussed with Dr. Miranda. CMP previously collected noted low NA at 134, normal potassium at 3.8. CO2 slightly decreased at 17. Normal LFTs and Cr. Dr. Miranda recommending Kcl. Reviewed protocol. Recommendation of 20meq of KCL. Confirmed with Pharmacy about running lines and compatible with Magnesium sulfate and D5. Discussed with Dr. Montero of ICU for further BGT recommendations per Dr. Miranda request. Current Insulin GTT had values for >[address] Montero received TDD of insulin and notes that we are likely under giving based on home regimen. He reviewed lab data with normal AG. Recommends new Insulin drip doses: 141-160: 2u 161-180: 4u 181-200 5u >200: 6u and Call MD Next BGT due in five minutes. Will assess. Plan per Dr. Montero that BMZ can safely be given if two consecutive drops on BGTs. Reviewed new information with Dr. Miranda who is in agreement of plan. Appreciate excellent recommendations of Dr. Montero. Vikki Díaz DO 02/16/2024 3:[address] [facility] 02-16-2024 Note Formatting of this n ote might be different from the original. Images from the original note were not included. Late note due to patient care. Been in patient's room a number of times this evening. Consented for BTL, form in chart. Patient was complaining of some intermittent cramping but was not requiring pain medications. Cat I FHT. Had rare variable deceleration. Remained reassuring with moderate variability. TOCO adjusted many times. Discussed with patient insulin gtt. Insulin on admisison was 233. Placed on drip and down to 213, 192 and [address] Miranda who recommended that if BGT dropped to 175 or lower, then plan for BMZ. Next BGT was elevated at 206. Dr. Miranda updated. Magnesium sulfate running for neuroprotection. Urine output adequate per RN. Discussed that if Cat II FHT, vaginal bleeding or worsening pain, will plan to remove the cerclage. At this time, plan to keep the cerclage in place. NICU consulted. Followup BGT was 206. RN not aware of patient snacking as patient is NPO. Patient has been napping on my exam. Discussed with Dr. Miranda. CMP previously collected noted low NA at 134, normal potassium at 3.8. CO2 slightly decreased at 17. Normal LFTs and Cr. Dr. Miranda recommending Kcl. Reviewed protocol. Recommendation of 20meq of KCL. Confirmed with Pharmacy about running lines and compatible with Magnesium sulfate and D5. Discussed with Dr. Montero of ICU for further BGT recommendations per Dr. Miranda request. Current Insulin GTT had values for >[address] Montero received TDD of insulin and notes that we are likely under giving based on home regimen. He reviewed lab data with normal AG. Recommends new Insulin drip doses: 141-160: 2u 161-180: 4u 181-200 5u >200: 6u and Call MD Next BGT due in five minutes. Will assess. Plan per Dr. Montero that BMZ can safely be given if two consecutive drops on BGTs. Reviewed new information with Dr. Miranda who is in agreement of plan. Appreciate excellent recommendations of Dr. Montero. Vikki Díaz DO 02/16/2024 3:22 AM [employer] 02-15-2024 Note Patient: Charmaine cleary Procedure Information Date: 02/15/24 Procedure: Labor Analgesia Relevant Problems No relevant active problems Clinical information reviewed: Tobacco Allergies Meds Med Hx Surg Hx Fam Hx Soc Hx Physical Exam Airway Mallampati: II TM distance: >3 FB Neck ROM: full Mouth Open: normalendotracheal tube not in place Cardiovascular - normal exam Dental dentition normal Pulmonary - normal exam Abdominal - normal exam Anesthesia Plan patient is NPO appropriate Any family history or previous problems with anesthesia no ASA 2 regional and spinal Any family history or previous problems with anesthesia no(Patient decision to get p c/s will do sab and tap block for postop pain relief) The patient is not a current smoker. Anesthetic plan and risks discussed with patient. Use of blood products discussed with who consented to blood products. Additional Equipment Requests [employer] [facility] 02-15-2024 History and physical note Department of Obstetrics and Gynecology History and Physical CHIEF COMPLAINT: PPROM HISTORY OF PRESENT ILLNESS: The patient is a 34 y.o. female at 29w4d. OB History 5 Para 3 Term 2 1 AB 1 Living 3 SAB 1 IAB Ectopic Multiple Live Births 3 Patient presents with a chief complaint as above and is being admitted for PPROM Presented to the triage for PPROM at 2000 for clear fluid. No contractions. Confirmed ROM in triage with cerclage in place, not on tension, cervix visually closed. Medical hx reviewed. Labs and US reviewed on phone. Transport: No Prior Hospitalizations: No Estimated Due Date: Estimated Date of Delivery: 04/28/24 CARE: Complications: See below PAST OB HISTORY: OB History 5 Para 3 Term 2 1 AB 1 Living 3 SAB 1 IAB Ectopic Multiple Live Births 3 Detailed OB History 2007 37w 9lb3oz, manual extraction of placenta 2009 37w 9lb2oz 2015 25w PPROM, trichomonas, 2022 16w PPROM, Demise, , D&C, Chorio Current Past Medical History: Past Medical History: Diagnosis Date Asthma Atrial fibrillation (HCC) Diabetes mellitus (HCC) Retained placenta Past Surgical History: Past Surgical History: Procedure Laterality Date CHOLECYSTECTOMY DILATION AND CURETTAGE OF UTERUS Allergies: Codeine, Nubain [nalbuphine], and Percocet [oxycodone-acetaminophen] Social History: Social History Socioeconomic History Marital status: Single Spouse name: Not on file Number of children: Not on file Years of education: Not on file Highest education level: Not on file Occupational History Not on file Tobacco Use Smoking status: Every Day Current packs/day: 0.50 Types: Cigarettes Smokeless tobacco: Never Substance and Sexual Activity Alcohol use: Not Currently Drug use: Not Currently Sexual activity: Not on file Other Topics Concern Not on file Social History Narrative Not on file Social Determinants of Health Financial Resource Strain: Not on file Food Insecurity: Not on file Transportation Needs: Not on file Physical Activity: Not on file Stress: Not on file Social Connections: Not on file Intimate Partner Violence: Not on file Housing Stability: Not on file Family History: No family history on file. Medications Prior to Admission: Medications Prior to Admission Medication Sig Dispense Refill Last Dose aspirin 81 MG EC tablet Take 81 mg by mouth daily. insulin glargine (Lantus) 100 UNIT/ML injection Inject 25 Units under the skin Nightly. Insulin Lispro (Humalog) 100 UNIT/ML solution injection Inject 24 Units under the skin in the morning and 24 Units at noon and 24 Units in the evening. Inject with meals. Loratadine-Pseudoephedrine (PX ALLERGY RELIEF D, LORATID, PO) Take by mouth. metFORMIN, OSM, (Fortamet) 1000 MG 24 hr tablet Take 1,000 mg by mouth in the morning and 1,000 mg in the evening. Take with meals. Do not crush, chew, or split.. omeprazole OTC (PriLOSEC OTC) 20 MG EC tablet Take 20 mg by mouth every morning (before breakfast). Do not crush, chew, or split. MV-Min-Fe Fum-FA-DHA ( 1 PO) Take by mouth. sertraline (Zoloft) 25 MG tablet Take 100 mg by mouth daily. REVIEW OF SYSTEMS: Review of Systems Labs: CBC Type and screen PHYSICAL EXAM: Vitals: 02/15/24 2108 BP: 137/73 Pulse: 110 Resp: 15 Temp: 36.8 C (98.2 F) TempSrc: Oral SpO2: 99% General appearance: awake, alert, cooperative, no apparent distress, and appears stated age Neurologic: Awake, alert, oriented to name, place and time. Lungs: No increased work of breathing, good air exchange Abdomen: Soft, non tender, gravid, consistent with her gestational age Sterile Speculum Exam: Membranes: Ruptured clear fluid HSV Lesions: not applicable Cervix: Visually closed, cerclage appears not on tension Contraction frequency: none Fetus: EFW: 1558g >99%, AC >99% on 02/14 US with MVP 6+.8, TRACEY 23.8cm Presentation: Vertex by U/S NST: N/A BPP: Not Performed genetics: LR male Hx of PTL: yes, in 2015 and 2022 PPROM and PTD Celestone given previously: no Cervical Length: Cerclage in place ASSESSMENT AND PLAN: LABOR DELIVERY ??? SCD's ONLY (labor through ambulation) SCD's PLUS Prophylactic Anticoagulation until discharge SCD's PLUS Prophylactic Anticoagulation for 6 weeks SCD's PLUS Therapeutic Anticoagulation for 6 weeks Vaginal Delivery [] BMI >= 40 kg/m2 Delivery All patients Vaginal Delivery [] BMI >= 40 kg/m2 AND [] Antepartum hospitalization >= 72 hours within the past month Delivery 1 Major Risk Factor: [] BMI >= 35 kg/m2 [] Low Risk Thrombophilia [] PPH+RBCs, IR, or operation [] Infection+Antibiotics [] Antepartum hospitalization >= 72 hours within the past month [] PMH: Sickle Cell, SLE, Cardiac Dz, Active IBD, Active Cancer, Nephrotic Syndrome OR 2 Minor Risk Factors: [] Multiple gestation [] Age > 40 [] PPH >= 1,000cc [] (+)FMH of VTE [] Smoker [] Preeclampsia [] BMI >= 40 kg/m2 AND [] Low Risk Thrombophilia OR ANY OF THE FOLLOWING: [] High Risk Thrombophilia without prior VTE [] Low Risk Thrombophilia with (+)FMH of VTE [] Any single prior VTE ANY OF THE FOLLOWING: [] Already on LMWH/UFH [] Multiple prior VTE [] High Risk Thrombophilia with prior VTE Low Risk Thrombophilia: FVL (heterozygous), Prothrombin (heterozygous), Protein C, Protein S High Risk Thrombophilia: FVL (homozygous), Prothrombin (homozygous), FVL+Prothrombin (heterozygous), Antithrombin III, APLS VTE Prophylaxis: Not Indicated Admission: Admit to Antepartum (PNU) FHR: Category 1, heart monitoring CEFM Labs: GBS ordered GC/CT ordered Urine ordered FFN not obrtained Type&Screen ordered Serum Labs CBC, HgbA1c Consults: Neonatology Imaging: ordered BPP Diet: NPO Testing: TBD Timing and Route of Delivery: 34w Medications: Neuroprotection Indicated/ordered Tocolysis not indicated Antibiotics ordered Steroids: Betamethasone - not indicated PPROM Cerclage in PLACE Hx of PPROM/PTD -G3 2016 25w following PPROM -G4 16w Demise following PPROM, diagnosed with chorio during that time -Follows with Dr. Bravo/Dr. Sanon in [place]/[facility], records requested -Reviewed all labs, visits and US on phone, compliant with care, NOB labs wnl -Cerclage was placed in 12w for hx of PTD -SROM at 2000 for clear fluid -Grossly ruptured in triage, pooling, and nitrazine and ferning positive -Cerclage in place, appears without tension, cervix visually closed -DVP 3.6cm on BSUS, vertex -Latency abx ordered -Hold BMZ at this time per Dr. Miranda for BGTs -Magnesium sulfate ordered for neuroprotection -RHYTHMIC GYMNASTICS COACH notified -Last growth this AM 02/14 1558g EFW >99%, AC >99% -BPP ordered for AM -Plan for removal of cerclage if increasing pain, bleeding or signs of infection T2DM -Diagnosed after G4 -GDMA with all other pregnancies -When not , reports diet controlled, no medications -last HgbA1c 6.5 in December, reordered on admission -Compliant on BASA daily -Current medications: Metformin 1000mg BID, NPH 24u nightly and Log 25u TID with meals -BGT on admission 233 -Reports pizza at 1600, states that she was "too busy" to take insulin at all today -Per Dr. Miranda, plan to start insulin drip -Consider titration of medications in AM, will hold meds at this time -Hx of Dexcom use this , not currently wearing due to rash -Consider replacement when admitted -NPO -Defer BMZ per Dr. Miranda, until BGTs in better control tHTN -Mild range BP 02/14 2307 -CMP ordered Hx of Demise Anxiety -G4 w 2022, no heart rate at time of delivery -Per patient, was diagnosed with chorio -Continue home Zoloft 100mg nightly -CLP consult to be considered Estimated LGA Hx of Macrosomia -G1/G2 both babies and 9lb3oz, 9lb2oz -Last growth this AM 02/14 1558g EFW >99%, AC >99% -Dated by 7w US Hx of manual extraction Hx of D&Cs x6 -Hx of placenta manual extraction in G1 -D&C in G4 after 16w loss for placenta and bleeding -Reports about 6 D&Cs in past heavy bleeding Asthma -Sports induced -No hospitalizations or intubations -No albuterol use Tobacco Abuse -1/2 PPD -NRT ordered on admission Desire for BTL -Desires permament sterilization -Discussed risk of regret, permanence of procedure and timing -Consent to be signed IUP @ 29w4d - Dating by 7w US - Vertex on 02/14 - Monitoring: CEFM - Diet: NPO - BMZ deferred Discussed with Dr Miranda, who agrees with plan. Vikki Díaz, 02/15/2024, 10:08 PM Cc: Chacha Miranda MD T [facility] 02-15-2024 Note Department of Obstet rics and Gynecology History and Physical CHIEF COMPLAINT: PPROM HISTORY OF PRESENT ILLNESS: The patient is a 34 y.o. female at 29w4d. OB History 5 Para 3 Term 2 1 AB 1 Living 3 SAB 1 IAB Ectopic Multiple Live Births 3 Patient presents with a chief complaint as above and is being admitted for PPROM Presented to the triage for PPROM at 2000 for clear fluid. No contractions. Confirmed ROM in triage with cerclage in place, not on tension, cervix visually closed. Medical hx reviewed. Labs and US reviewed on phone. Transport: No Prior Hospitalizations: No Estimated Due Date: Estimated Date of Delivery: 04/28/24 CARE: Complications: See below PAST OB HISTORY: OB History 5 Para 3 Term 2 1 AB 1 Living 3 SAB 1 IAB Ectopic Multiple Live Births 3 Detailed OB History 2007 37w 9lb3oz, manual extraction of placenta 2009 37w 9lb2oz 2015 25w PPROM, trichomonas, 2022 16w PPROM, Demise, , D&C, Chorio Current Past Medical History: Past Medical History: Diagnosis Date Asthma Atrial fibrillation (HCC) Diabetes mellitus (HCC) Retained placenta Past Surgical History: Past Surgical History: Procedure Laterality Date CHOLECYSTECTOMY DILATION AND CURETTAGE OF UTERUS Allergies: Codeine, Nubain [nalbuphine], and Percocet [oxycodone-acetaminophen] Social History: Social History Socioeconomic History Marital status: Single Spouse name: Not on file Number of children: Not on file Years of education: Not on file Highest education level: Not on file Occupational History Not on file Tobacco Use Smoking status: Every Day Current packs/day: 0.50 Types: Cigarettes Smokeless tobacco: Never Substance and Sexual Activity Alcohol use: Not Currently Drug use: Not Currently Sexual activity: Not on file Other Topics Concern Not on file Social History Narrative Not on file Social Determinants of Health Financial Resource Strain: Not on file Food Insecurity: Not on file Transportation Needs: Not on file Physical Activity: Not on file Stress: Not on file Social Connections: Not on file Intimate Partner Violence: Not on file Housing Stability: Not on file Family History: No family history on file. Medications Prior to Admission: Medications Prior to Admission Medication Sig Dispense Refill Last Dose aspirin 81 MG EC tablet Take 81 mg by mouth daily. insulin glargine (Lantus) 100 UNIT/ML injection Inject 25 Units under the skin Nightly. Insulin Lispro (Humalog) 100 UNIT/ML solution injection Inject 24 Units under the skin in the morning and 24 Units at noon and 24 Units in the evening. Inject with meals. Loratadine-Pseudoephedrine (PX ALLERGY RELIEF D, LORATID, PO) Take by mouth. metFORMIN, OSM, (Fortamet) 1000 MG 24 hr tablet Take 1,000 mg by mouth in the morning and 1,000 mg in the evening. Take with meals. Do not crush, chew, or split.. omeprazole OTC (PriLOSEC OTC) 20 MG EC tablet Take 20 mg by mouth every morning (before breakfast). Do not crush, chew, or split. MV-Min-Fe Fum-FA-DHA ( 1 PO) Take by mouth. sertraline (Zoloft) 25 MG tablet Take 100 mg by mouth daily. REVIEW OF SYSTEMS: Review of Systems Labs: CBC Type and screen PHYSICAL EXAM: Vitals: 02/15/24 2108 BP: 137/73 Pulse: 110 Resp: 15 Temp: 36.8 ?C (98.2 ?F) TempSrc: Oral SpO2: 99% General appearance: awake, alert, cooperative, no apparent distress, and appears stated age Neurologic: Awake, alert, oriented to name, place and time. Lungs: No increased work of breathing, good air exchange Abdomen: Soft, non tender, gravid, consistent with her gestational age Sterile Speculum Exam: Membranes: Ruptured clear fluid HSV Lesions: not applicable Cervix: Visually closed, cerclage appears not on tension Contraction frequency: none Fetus: EFW: 1558g >99%, AC >99% on 02/14 US with MVP 6+.8, TRACEY 23.8cm Presentation: Vertex by U/S NST: N/A BPP: Not Performed genetics: LR male Hx of PTL: yes, in 2015 and 2022 PPROM and PTD Celestone given previously: no Cervical Length: Cerclage in place ASSESSMENT AND PLAN: LABOR DELIVERY ??? SCD's ONLY (labor through ambulation) SCD's PLUS Prophylactic Anticoagulation until discharge SCD's PLUS Prophylactic Anticoagulation for 6 weeks SCD's PLUS Therapeutic Anticoagulation for 6 weeks Vaginal Delivery [] BMI >= 40 kg/m2 Delivery All patients Vaginal Delivery [] BMI >= 40 kg/m2 AND [] Antepartum hospitalization >= 72 hours within the past month Delivery 1 Major Risk Factor: [] BMI >= 35 kg/m2 [] Low Risk Thrombophilia [] PPH+RBCs, IR, or operation [] Infection+Antibiotics [] Antepartum hospitalization >= 72 hours within the past month [] PMH: Sickle Cell, SLE, Cardiac Dz, (more content not included)... [facility] 02-15-2024 History and physical note Department of Obstetrics and Gynecology History and Physical CHIEF COMPLAINT: PPROM HISTORY OF PRESENT ILLNESS: The patient is a 34 y.o. female at 29w4d. OB History 5 Para 3 Term 2 1 AB 1 Living 3 SAB 1 IAB Ectopic Multiple Live Births 3 Patient presents with a chief complaint as above and is being admitted for PPROM Presented to the triage for PPROM at 2000 for clear fluid. No contractions. Confirmed ROM in triage with cerclage in place, not on tension, cervix visually closed. Medical hx reviewed. Labs and US reviewed on phone. Transport: No Prior Hospitalizations: No Estimated Due Date: Estimated Date of Delivery: 04/28/24 CARE: Complications: See below PAST OB HISTORY: OB History 5 Para 3 Term 2 1 AB 1 Living 3 SAB 1 IAB Ectopic Multiple Live Births 3 Detailed OB History 2007 37w 9lb3oz, manual extraction of placenta 2009 37w 9lb2oz 2015 25w PPROM, trichomonas, 2022 16w PPROM, Demise, , D&C, Chorio Current Past Medical History: Past Medical History: Diagnosis Date Asthma Atrial fibrillation (HCC) Diabetes mellitus (HCC) Retained placenta Past Surgical History: Past Surgical History: Procedure Laterality Date CHOLECYSTECTOMY DILATION AND CURETTAGE OF UTERUS Allergies: Codeine, Nubain [nalbuphine], and Percocet [oxycodone-acetaminophen] Social History: Social History Socioeconomic History Marital status: Single Spouse name: Not on file Number of children: Not on file Years of education: Not on file Highest education level: Not on file Occupational History Not on file Tobacco Use Smoking status: Every Day Current packs/day: 0.50 Types: Cigarettes Smokeless tobacco: Never Substance and Sexual Activity Alcohol use: Not Currently Drug use: Not Currently Sexual activity: Not on file Other Topics Concern Not on file Social History Narrative Not on file Social Determinants of Health Financial Resource Strain: Not on file Food Insecurity: Not on file Transportation Needs: Not on file Physical Activity: Not on file Stress: Not on file Social Connections: Not on file Intimate Partner Violence: Not on file Housing Stability: Not on file Family History: No family history on file. Medications Prior to Admission: Medications Prior to Admission Medication Sig Dispense Refill Last Dose aspirin 81 MG EC tablet Take 81 mg by mouth daily. insulin glargine (Lantus) 100 UNIT/ML injection Inject 25 Units under the skin Nightly. Insulin Lispro (Humalog) 100 UNIT/ML solution injection Inject 24 Units under the skin in the morning and 24 Units at noon and 24 Units in the evening. Inject with meals. Loratadine-Pseudoephedrine (PX ALLERGY RELIEF D, LORATID, PO) Take by mouth. metFORMIN, OSM, (Fortamet) 1000 MG 24 hr tablet Take 1,000 mg by mouth in the morning and 1,000 mg in the evening. Take with meals. Do not crush, chew, or split.. omeprazole OTC (PriLOSEC OTC) 20 MG EC tablet Take 20 mg by mouth every morning (before breakfast). Do not crush, chew, or split. MV-Min-Fe Fum-FA-DHA ( 1 PO) Take by mouth. sertraline (Zoloft) 25 MG tablet Take 100 mg by mouth daily. REVIEW OF SYSTEMS: Review of Systems Labs: CBC Type and screen PHYSICAL EXAM: Vitals: 02/15/24 2108 BP: 137/73 Pulse: 110 Resp: 15 Temp: 36.8 C (98.2 F) TempSrc: Oral SpO2: 99% General appearance: awake, alert, cooperative, no apparent distress, and appears stated age Neurologic: Awake, alert, oriented to name, place and time. Lungs: No increased work of breathing, good air exchange Abdomen: Soft, non tender, gravid, consistent with her gestational age Sterile Speculum Exam: Membranes: Ruptured clear fluid HSV Lesions: not applicable Cervix: Visually closed, cerclage appears not on tension Contraction frequency: none Fetus: EFW: 1558g >99%, AC >99% on 02/14 US with MVP 6+.8, TRACEY 23.8cm Presentation: Vertex by U/S NST: N/A BPP: Not Performed genetics: LR male Hx of PTL: yes, in 2015 and 2022 PPROM and PTD Celestone given previously: no Cervical Length: Cerclage in place ASSESSMENT AND PLAN: LABOR DELIVERY ??? SCD's ONLY (labor through ambulation) SCD's PLUS Prophylactic Anticoagulation until discharge SCD's PLUS Prophylactic Anticoagulation for 6 weeks SCD's PLUS Therapeutic Anticoagulation for 6 weeks Vaginal Delivery [] BMI >= 40 kg/m2 Delivery All patients Vaginal Delivery [] BMI >= 40 kg/m2 AND [] Antepartum hospitalization >= 72 hours within the past month Delivery 1 Major Risk Factor: [] BMI >= 35 kg/m2 [] Low Risk Thrombophilia [] PPH+RBCs, IR, or operation [] Infection+Antibiotics [] Antepartum hospitalization >= 72 hours within the past month [] PMH: Sickle Cell, SLE, Cardiac Dz, Active IBD, Active Cancer, Nephrotic Syndrome OR 2 Minor Risk Factors: [] Multiple gestation [] Age > 40 [] PPH >= 1,000cc [] (+)FMH of VTE [] Smoker [] Preeclampsia [] BMI >= 40 kg/m2 AND [] Low Risk Thrombophilia OR ANY OF THE FOLLOWING: [] High Risk Thrombophilia without prior VTE [] Low Risk Thrombophilia with (+)FMH of VTE [] Any single prior VTE ANY OF THE FOLLOWING: [] Already on LMWH/UFH [] Multiple prior VTE [] High Risk Thrombophilia with prior VTE Low Risk Thrombophilia: FVL (heterozygous), Prothrombin (heterozygous), Protein C, Protein S High Risk Thrombophilia: FVL (homozygous), Prothrombin (homozygous), FVL+Prothrombin (heterozygous), Antithrombin III, APLS VTE Prophylaxis: Not Indicated Admission: Admit to Antepartum (PNU) FHR: Category 1, heart monitoring CEFM Labs: GBS ordered GC/CT ordered Urine ordered FFN not obrtained Type&Screen ordered Serum Labs CBC, HgbA1c Consults: Neonatology Imaging: ordered BPP Diet: NPO Testing: TBD Timing and Route of Delivery: 34w Medications: Neuroprotection Indicated/ordered Tocolysis not indicated Antibiotics ordered Steroids: Betamethasone - not indicated PPROM Cerclage in PLACE Hx of PPROM/PTD -G3 2016 25w following PPROM -G4 16w Demise following PPROM, diagnosed with chorio during that time -Follows with Dr. Bravo/Dr. Sanon in [place], records requested -Reviewed all labs, visits and US on phone, compliant with care, NOB labs wnl -Cerclage was placed in 12w for hx of PTD -SROM at 2000 for clear fluid -Grossly ruptured in triage, pooling, and nitrazine and ferning positive -Cerclage in place, appears without tension, cervix visually closed -DVP 3.6cm on BSUS, vertex -Latency abx ordered -Hold BMZ at this time per Dr. Miranda for BGTs -Magnesium sulfate ordered for neuroprotection -RHYTHMIC GYMNASTICS COACH notified -Last growth this AM 02/14 1558g EFW >99%, AC >99% -BPP ordered for AM -Plan for removal of cerclage if increasing pain, bleeding or signs of infection T2DM -Diagnosed after G4 -GDMA with all other pregnancies -When not , reports diet controlled, no medications -last HgbA1c 6.5 in December, reordered on admission -Compliant on BASA daily -Current medications: Metformin 1000mg BID, NPH 24u nightly and Log 25u TID with meals -BGT on admission 233 -Reports pizza at 1600, states that she was "too busy" to take insulin at all today -Per Dr. Miranda, plan to start insulin drip -Consider titration of medications in AM, will hold meds at this time -Hx of Dexcom use this , not currently wearing due to rash -Consider replacement when admitted -NPO -Defer BMZ per Dr. Miranda, until BGTs in better control tHTN -Mild range BP 02/14 2307 -CMP ordered Hx of Demise Anxiety -G4 16w 2022, no heart rate at time of delivery -Per patient, was diagnosed with chorio -Continue home Zoloft 100mg nightly -CLP consult to be considered Estimated LGA Hx of Macrosomia -G1/G2 both babies and 9lb3oz, 9lb2oz -Last growth this AM 02/14 1558g EFW >99%, AC >99% -Dated by 7w US Hx of manual extraction Hx of D&Cs x6 -Hx of placenta manual extraction in G1 -D&C in G4 after 16w loss for placenta and bleeding -Reports about 6 D&Cs in past heavy bleeding Asthma -Sports induced -No hospitalizations or intubations -No albuterol use Tobacco Abuse -1/2 PPD -NRT ordered on admission Desire for BTL -Desires permament sterilization -Discussed risk of regret, permanence of procedure and timing -Consent to be signed IUP @ 29w4d - Dating by 7w US - Vertex on 02/14 - Monitoring: CEFM - Diet: NPO - BMZ deferred Discussed with Dr Miranda, who agrees with plan. Vikki Díaz, 02/15/2024, 10:08 PM Cc: Chacha Miranda MD documented in this encounter [facility] 02-15-2024 Note Indication Evaluation of growth Advanced maternal age, Maternal obesity, BMI >30, Diabetes mellitus, cervical cerclage PRROM 16 and 24 weeks Impression REMOTE READ - Single, live, intrauterine . - The biometry is accelerated for the assigned gestational dating. - The EFW is 1558 g, at the >99%. AC is at the >99%. - The amniotic fluid volume is normal amount with an MVP of 6.8 cm and an TRACEY of 23.8 cm. - The placenta is anterior, fundal. - No malformations visualized on a limited survey as detailed below. Recommendations Growth in four weeks Maternal Assessment Height 173 cm Height (ft) 5 ft Height (in) 8 in Physical Exam Initial weight (lb) 224 lb Initial BMI 34.06 kg/m Maternal assessment other: 5 Para 3 Method Transabdominal ultrasound examination. View: Suboptimal view: limited by late gestational age Mandujano . Number of fetuses: 1 Dating GA by prior assessment 27 w + 6 d LEELA by prior assessment: 05/10/2024 Ultrasound examination on: 02/15/2024 GA by U/S based upon: AC, BPD, Femur, HC GA by U/S 29 w + 4 d LEELA by U/S: 04/28/2024 Assigned: based on stated LEELA, selected on 12/21/2023 Assigned GA 27 w + 6 d Assigned LEELA: 05/10/2024 General Evaluation Cardiac activity present. FHR 145 bpm. movements: present. Presentation: cephalic Placenta: Placental site: anterior, fundal Umbilical cord: Cord vessels: 3 vessel cord Amniotic fluid: Amount of AF: normal amount. MVP 6.8 cm. TRACEY 23.8 cm. Q1 4.8 cm, Q2 6.2 cm, Q3 6.8 cm, Q4 6.1 cm Growth Overview Exam date GA BPD (mm) HC (mm) AC (mm) FL (mm) HL (mm) EFW (g) 11/27/2023 16w 3d 35.1 66% 132.1 53% 113.8 75% 23 76% 22.8 76% 175 74% 12/21/2023 19w 6d 45.7 48% 172.6 48% 158.6 80% 33.4 82% 32.3 86% 363 83% 02/15/2024 27w 6d 72 72% 264.3 60% 273.4 >99% 56.1 96% 1558 >99% Biometry Standard BPD 72.0 mm 28w 6d 72% Hadlock OFD 93.3 mm 27w 4d 56% Nicolaides HC 264.3 mm 28w 2d 60% Ebony AC 273.4 mm 31w 3d >99% Hadlock Femur 56.1 mm 29w 4d 96% Ebony EFW 1,558 g 30w 0d >99% Hadlock EFW (lb) 3 lb EFW (oz) 7 oz EFW by: Hadlock (HC-AC-FL) Extended [employer] 4.7 mm Extremities / Bony Struc FL / HC 0.21 Other Structures FHR 145 bpm Anatomy Lateral ventricles: normal Cavum septi pellucidi: normal Cerebellum: normal Cisterna magna: normal 4-chamber view: normal RVOT view: normal LVOT view: normal 3-vessel view: suboptimal Heart / Thorax Situs: situs solitus (normal) Diaphragm: normal Stomach: normal Kidneys: normal Bladder: normal sex: male Wants to know sex: yes Performed By: Humera Velasquez RDMS, RVT Read By: Kimberly Gibbons M.D. [facility] 02-15-2024 Progress note Formatting of t his note might be different from the original. RR- VB No. LOF No. CTXS No. Movement: present. Other c/o: some pressure Medication list reviewed. Physical Exam See Flow Sheet Abd: soft, nontender, gravid Ext: edema: Trace A/P 27w6d Estimated Date of Delivery: 05/10/24 AMA- agre > 35, antepartum testing will be order Type 2 DM follows w/ endocrine for this, bs has been high b/c of eating popsicles to help heart burn. D/w her stop those and restart omeprazole that she was on before US today for growth, has cerclage and cervical length good tdoay encouraged tob to decrease or stop and offered change to nicotine patches f/u in 2 weeks or prn counseled on flu vaccine, declines today 28 week labs done last visit, reviewed h/o BV - treated in December, rescreen next visit Mimi Harden M.D. T [facility] 02-15-2024 Miscellaneous Notes RR- VB No. LOF No. CTXS No. Movement: present. Other c/o: some pressure Medication list reviewed. Physical Exam See Flow Sheet Abd: soft, nontender, gravid Ext: edema: Trace A/P 27w6d Estimated Date of Delivery: 05/10/24 AMA- agre > 35, antepartum testing will be order Type 2 DM follows w/ endocrine for this, bs has been high b/c of eating popsicles to help heart burn. D/w her stop those and restart omeprazole that she was on before US today for growth, has cerclage and cervical length good tdoay encouraged tob to decrease or stop and offered change to nicotine patches f/u in 2 weeks or prn counseled on flu vaccine, declines today 28 week labs done last visit, reviewed h/o BV - treated in [place], rescreen next visit Mimi Harden M.D. documented in this encounter [facility] 02-15-2024 Instructions Aysha Bain MA - 02/15/2024 10:38 AM EDT SEQUENTIAL SCREENINGS The [facility] offers sequential screenings for women who are interested in screenings for chromosomal abnormalities and certain defects during a . The sequential screen combines ultrasound and blood tests to determine the risk of chromosomal abnormalities, including Down's Syndrome (Trisomy 21) and Trisomy 18, as well as open neural tube defects including spina bifida. Ultrasound examination is performed between 11 weeks and 13 weeks gestational age. Blood tests are drawn after the ultrasound and again later in the between 15 and 21 weeks gestational age. Please let your physician know if you are interested in this testing. It will require an appointment with our medical laboratory technician. This is not an ultrasound performed by a physician in our office during a routine visit. SIGNS AND SYMPTOMS OF LABOR 1. Contractions every 10 minutes or more often 2. Clear, pink, or brownish fluid (water) leaking from vagina 3. Feeling that baby is pushing down, pressure 4. Low, dull backache 5. Cramps that feel like a period 6. Cramps with or without diarrhea If you notice any of the above symptoms, contact our office at [phone] and ask to speak with a nurse. After hours, you can call doctors registry at [phone] OR call [facility] at [phone] and ask to have the doctor field control inspector paged. If you consider this an emergency, dial [phone] or go to your nearest emergency department. NEED HELP? Are you dealing with a violent or abusive relationship? Are you a victim of rape or sexual assult? Call [facility] ([facility] 24 hour Crisis Hotline: 120.224.9099 or 130-185-4380. MANUAL Your Guide to a Healthy manual is now on-line. Visit [email or web address] to download your free copy documented in this encounter [facility] 02-10-2024 Telephone encounter Note Reviewed BG data- responded as follows: Obinna Kaufmanlie- your sensor average BG remains markedly elevated at 174 +/- 46 mg/dL. I am not sure what to make of the discrepancy between what you are logging on your sheet- and what your sensor data say (?)- if you are seeing this kind of improvement over the past few days- lets continue as you are doing for now NPH 25 units at bedtime, increase Humalog to 15 units prior to each meal + additional 5 units of Humalog with any "higher carb" meals (abelino with * as you are doing. Continue Metformin ER 500 mg two tabs twice/day with meals. Will review again next week- thanks! Forward me your BG data again on thursday and hopefully will see some improvement in your CGM average BG at that time thanks Dr Ramirez [facility] 02-10-2024 Miscellaneous Notes Reviewed BG data- responded as follows: Obinna Kaufmanlie- your sensor average BG remains markedly elevated at 174 +/- 46 mg/dL. I am not sure what to make of the discrepancy between what you are logging on your sheet- and what your sensor data say (?)- if you are seeing this kind of improvement over the past few days- lets continue as you are doing for now NPH 25 units at bedtime, increase Humalog to 15 units prior to each meal + additional 5 units of Humalog with any "higher carb" meals (abelino with * as you are doing. Continue Metformin ER 500 mg two tabs twice/day with meals. Will review again next week- thanks! Forward me your BG data again on thursday and hopefully will see some improvement in your CGM average BG at that time thanks Dr Ramirez documented in this encounter [facility] 01-28-2024 Telephone encounter Note Spoke to patient. She stated she will send the log tomorrow. [facility] 01-28-2024 Miscellaneous Notes Spoke to patient. She stated she will send the log tomorrow. Please contact pt and remind her that she needs to send BG log weekly for review Thanks ALISHA documented in this encounter [facility] 01-28-2024 Telephone encounter Note Please contact pt and remind her that she needs to send BG log weekly for review Thanks ALISHA [facility] 01-17-2024 Telephone encounter Note Reviewed BG data- responded as follows: Obinna Montano- Kodi reviewed your BG data/ CGM data and message below- your sensor average is still elevated at 163 mg/dL. Your sensor average BG remains elevated- this looks to be driven by post meal numbers in review of your CGM. I would recommend that you continue NPH 25 units at bedtime, increase Humalog to 15 units prior to each meal + additional 5 units of Humalog with any "higher carb" meals (abelino with * as you are doing. Continue Metformin ER 500 mg two tabs twice/day with meals. Will review again next week- thanks! ALISHA [facility] 01-17-2024 Miscellaneous Notes Reviewed BG data- responded as follows: Obinna Montano- Kodi reviewed your BG data/ CGM data and message below- your sensor average is still elevated at 163 mg/dL. Your sensor average BG remains elevated- this looks to be driven by post meal numbers in review of your CGM. I would recommend that you continue NPH 25 units at bedtime, increase Humalog to 15 units prior to each meal + additional 5 units of Humalog with any "higher carb" meals (abelino with * as you are doing. Continue Metformin ER 500 mg two tabs twice/day with meals. Will review again next week- thanks! KB documented in this encounter [facility] 01-08-2024 Telephone encounter Note Patient notified [facility] 01-08-2024 Miscellaneous Notes Patient notified Rx sent. Rut Stiles APRN.KATHI Patient notified and voiced understanding. Patient states Dr. Santana reviewed magnesium for headaches yesterday at appointment and is asking if an RX for Magnesium can be sent as well. Humera Levi RN +BV, flagyl sent. Rut Stiles APRN.CNP documented in this encounter [facility] 01-08-2024 Telephone encounter Note Rx sent. Rut Stiles APRN.CNP [facility] 01-08-2024 Telephone encounter Note Patient notified and voiced understanding. Patient states Dr. Santana reviewed magnesium for headaches yesterday at appointment and is asking if an RX for Magnesium can be sent as well. Humera Amita, RN T [facility] 01-08-2024 Telephone encounter Note +BV, flagyl sent. Rut Stiles APRN.TIE UP WORKER T [facility] 01-07-2024 Progress note Formatting of t his note might be different from the original. SW- Here for follow up from [facility]. Went for DFM 4 days ago. Has noticed increased white discharge. Has always had discharge but she has noticed more. No bleeding. No vaginal itching, burning, discomfort. No urinary symptoms. H/o tensions headaches and she feels she has had these more. Tylenol helps with the headache. Mild cramping today. PE: Gen- NAD, well appearing Abd- Soft, gravid, NT SSE- Cervix in place, no tension noted on cervix, no bleeding or discharge, cervix closed Bedside TAUS with +FM, +FHT, normal MVP See flowsheet A/p 22 wk gestation add on visit for DFM follow up and cramping - Cervix closed and no bleeding. Check for vaginal infection given h/o trich and BV - Reviewed movement expectations - Reviewed magnesium for headaches - Discussed pelvic rest and reasons to call - RTO 1 wk Deepthi Santana DO T [facility] Work Phone: 01-07-2024 Miscellaneous Notes SW- Here for follow up from [facility]. Went for DFM 4 days ago. Has noticed increased white discharge. Has always had discharge but she has noticed more. No bleeding. No vaginal itching, burning, discomfort. No urinary symptoms. H/o tensions headaches and she feels she has had these more. Tylenol helps with the headache. Mild cramping today. PE: Gen- NAD, well appearing Abd- Soft, gravid, NT SSE- Cervix in place, no tension noted on cervix, no bleeding or discharge, cervix closed Bedside TAUS with +FM, +FHT, normal MVP See flowsheet A/p 22 wk gestation add on visit for DFM follow up and cramping - Cervix closed and no bleeding. Check for vaginal infection given h/o trich and BV - Reviewed movement expectations - Reviewed magnesium for headaches - Discussed pelvic rest and reasons to call - RTO 1 wk Deepthi Santana DO documented in this encounter [facility] 01-07-2024 Instructions Val Agustin MA - 01/07/2024 9:09 AM EDT SEQUENTIAL SCREENINGS The [facility] offers sequential screenings for women who are interested in screenings for chromosomal abnormalities and certain defects during a . The sequential screen combines ultrasound and blood tests to determine the risk of chromosomal abnormalities, including Down's Syndrome (Trisomy 21) and Trisomy 18, as well as open neural tube defects including spina bifida. Ultrasound examination is performed between 11 weeks and 13 weeks gestational age. Blood tests are drawn after the ultrasound and again later in the between 15 and 21 weeks gestational age. Please let your physician know if you are interested in this testing. It will require an appointment with our medical laboratory technician. This is not an ultrasound performed by a physician in our office during a routine visit. SIGNS AND SYMPTOMS OF LABOR 1. Contractions every 10 minutes or more often 2. Clear, pink, or brownish fluid (water) leaking from vagina 3. Feeling that baby is pushing down, pressure 4. Low, dull backache 5. Cramps that feel like a period 6. Cramps with or without diarrhea If you notice any of the above symptoms, contact our office at [phone] and ask to speak with a nurse. After hours, you can call doctors registry at [phone] OR call [facility] at [phone] and ask to have the doctor field control inspector paged. If you consider this an emergency, dial or go to your nearest emergency department. NEED HELP? Are you dealing with a violent or abusive relationship? Are you a victim of rape or sexual assult? Call [facility] ([facility] 24 hour Crisis Hotline: 338.595.3532 or 988-210-7573. MANUAL Your Guide to a Healthy manual is now on-line. Visit [email or web address] to download your free copy documented in this encounter [facility] 01-04-2024 History of Present illness Narrative Spoke with patient, scheduled 02/29/2024 @ 10:40 am (virtual appointment) Referring Physician: Vasu Gaxiola APRN, CNP My final recommendations will be communicated back to the requesting physician by way of shared Medical record or letter via US mail. Reason for consultation: Follow up evaluation- type 2 diabetes antepartum. This Team Access Model visit is a virtual encounter. It required patient-provider interaction for the medical decision making as documented below. I have communicated my name and active licensure. The patient's identity and physical location were verified at the time of this visit. Either the patient or their legal branch service representative has been informed of the risks and benefits of -- and alternatives to -- treatment through a remote evaluation and consents to proceed with the evaluation remotely. HISTORY OF PRESENT ILLNESS; Ms. Avila is a 33 year old presenting at 21+ weeks gestation who is here for follow up regarding type 2 diabetes antepartum. Last visit with ia was 11/04/22. Pt with GDM in all three previous pregnancies. She was initially diagnosed with diabetes in 2016- after delivery of third child after post GTT. Required insulin during third (as well as glyburide) No known microvascular or macrovascular complications - states she follows with ophthalmology annually - saw within the last month, no DR. Her current regimen is as follows: Metformin ER 500 mg two tabs twice/day. Was taking Trulicity prior to the - but discontinued and has remained off . Insulin was initiated at her first visit wit ia and has been adjusted in between visits- most recently on 12/28- her current regimen is as follows: NPH 25 units at bedtime and Humalog 12 units prior to each meal + additional 5 units of Humalog with any "higher carb" meals (abelino with * as you are doing Metformin ER 500 mg two tabs twice/day with meals. She has been checking her BG using Dexcom as below- sensor average BG is 158 +/- 45 mg/dL This continuous glucose monitoring (sensor) data can be found in the procedure note CGM Report Interpretation: 1. Nocturnal glucose control: Uncontrolled glucose NOT previously detected: No If yes: Not applicable Notes: overnight BG at/near goal 2. Post prandial glucose excursions: Uncontrolled glucose NOT previously detected: Yes If yes: Hyperglycemia detected Notes: post meal BG at goal, however some elevations in the context of omission of insulin. I encouraged her to take insulin with her when she is out to eat (she thought she was not able to do this). 3. Hypoglycemia incidence: Uncontrolled glucose NOT previously detected: Yes Notes: infrequent, if at all . States she get this at times overnight. 4. Other (e.g., exercise/activity): n/a Hypoglycemia frequency: n/a Hypoglycemia awareness: n/a Hyperglycemia Symptoms: denies blurry vision reports polyuria denies polydipsia reports nocturia denies rapid weight loss Last visit with OB was 12/20- Last u/s growth was 12/20- EFW [address], AC [address], TRACEY NL- having a boy! No complaints/concerns at this time- feels ok overall. PAST MEDICAL HISTORY No date: Anxiety state No date: Atrial fibrillation (HCC) No date: Cardiac arrest ([facility]) Comment: With subsequent A. fib after initiation of anesthesia June 2016 with tubal, converted with diltiazem after 11 hours, she follows with cardiology 09/16/2023: Constipation during in first trimester Comment: Reviewed Colace and increased hydration. No date: Diabetes type 2, controlled ([facility]) Comment: 2015 No date: GERD (gastroesophageal reflux disease) No date: History of depression No date: Mixed hyperlipidemia No date: Morbid obesity ([facility]) No date: Tobacco dependence PAST SURGICAL HISTORY No date: CHOLECYSTECTOMY 04/16/2023: D&C, DIAG AND/OR THERAPEUTIC Comment: retained placenta after 16 week demise/PPROM delivery 2016: DILATION & CURETTAGE DX&/THER NONOBSTETRIC Comment: multiple procedures No date: TONSILLECTOMY & ADENOIDECTOMY <AGE 10 FAMILY HISTORY Problem Relation Age of Onset Hypertension Mother No Known Problems Father No Known Problems Sister No Known Problems Brother Cancer Maternal Grandmother Sinus Diabetes Paternal Grandmother Heart Failure Paternal Grandmother Heart Failure Paternal Grandfather Social History Tobacco Use Smoking status: Every Day Packs/day: 0.50 Years: 20.00 Additional pack years: 0.00 Total pack years: 10.00 Types: Cigarettes Smokeless tobacco: Never Vaping Use Vaping Use: Never used Substance Use Topics Alcohol use: Not Currently Drug use: Never Current Outpatient Medications Medication Sig Dispense Refill insulin NPH (HUMULIN N NPH INSULIN KWIKPEN) 100 unit/mL (3 mL) injection pen 25 units at bedtime 5 Each 11 insulin lispro (HUMALOG KWIKPEN) 100 unit/mL 12 units prior to each meal + scale 5 Each 11 M- PLUS 27 mg iron- 1 mg take 1 tablet by mouth once daily. 30 tablet 5 lidocaine (LIDODERM) 5 % APPLY 1 PATCH DIRECTED EVERY 24 HOURS. REMOVE OLD PATCH PRIOR TO PLACING NEW PATCH. LOCATION: LOW BACK 30 Patch 2 DEXCOM G7 SENSOR stephanie INSERT 1 SENSOR ON THE BACK OF ARM. REPLACE EVERY 10 DAYS DIRECTED. 3 Each 2 sertraline (ZOLOFT) 100 mg tablet take 1 tablet by mouth once daily. 90 tablet 2 Insulin [place], Disposable, (PEN NEEDLE) 32 gauge x 5/32" Use to inject insulin up to 4 times per day. 150 Each 5 metFORMIN ER (GLUCOPHAGE XR) 500 mg 24 hr tablet Take 2 tablets by mouth two times a day with meals. 360 tablet 3 aspirin, enteric coated (ASPIRIN, ENTERIC COATED) 81 mg EC tablet Take 1 tablet by mouth once daily. 90 tablet 3 ketotifen fumarate (ZADITOR) 0.025 % (0.035 %) ophthalmic solution Use 1 Drop in both eyes two times a day. As needed 5 mL 11 loratadine (CLARITIN) 10 mg tablet Take 1 tablet by mouth once daily as needed. 90 tablet 1 albuterol HFA (PROVENTIL HFA, VENTOLIN HFA) 90 mcg/actuation inhaler Inhale 2 Puffs as instructed every 4 hours as needed for wheezing/shortness of breath. 1 Each 2 Hkmpatpt-Rd-Quh-Fe-FA tab Take 1 tablet by mouth once daily. 30 tablet 5 blood sugar diagnostic (ONETOUCH VERIO TEST STRIPS) test strip Use as instructed 4 times daily (Patient taking differently: Use as instructed 4 times daily For back up use only due to use of Dexcom) 150 Strip 11 lancets (ONETOUCH DELICA LANCETS) 30 gauge Use as instructed 4 times daily (Patient taking differently: Use as instructed 4 times daily For back up use only due to use of Dexcom) 150 Each 11 Blood-Glucose Meter (BLOOD GLUCOSE MONITORING) monitoring kit One touch. Use as instructed. Please use voucher Bin [id number]; [facility]; Group [id number]; ID NOCHARGEMETR (Patient taking differently: One touch. Use as instructed. Please use voucher Bin [id number]; [facility]; Group [id number]; ID NOCHARGEMETR For back up use only due to use of Dexcom) 1 Kit 0 Insulin [place], Disposable, (PEN NEEDLE) 32 gauge x 5/32" Use to inject insulin up to 4 times per day. (Patient taking differently: Use to inject insulin up to 4 times per day. For back up use only due to use of Dexcom) 100 Each 5 ondansetron orally disintegrating (ZOFRAN ODT) 4 mg disintegrating tablet Take 1 tablet by mouth every 6 hours as needed for nausea/vomiting. 10 tablet 0 Blood-Glucose Meter,Continuous (DEXCOM G7 HOME THEATRE TECHNICIAN) [facility] Use to test blood sugar as directed. 1 Each 0 alcohol swabs (ALCOHOL PADS) Apply 1 application to affected area once daily. 100 Each 2 blood sugar diagnostic (BLOOD GLUCOSE TEST) test strip Test blood sugar(s) 3 times daily. Dx: Type 2 DM - Controlled E11.9 Insulin: Yes (Patient taking differently: Test blood sugar(s) 3 times daily. Dx: Type 2 DM - Controlled E11.9 Insulin: Yes For back up use only due to use of Dexcom) 100 Strip 5 fluticasone (FLONASE) 50 mcg/actuation nasal spray Use 1 [place] in each nostril once daily. As needed No current facility-administered medications for this visit. Allergies As of Date: 01/04/2024 Allergen Noted Reaction CODEINE 10/02/2020 Other: See Comments JARDIANCE [EMPAGLIFLOZIN] 08/26/2021 Intolerance NALBUPHINE 10/02/2020 Vomiting OXYCODONE 03/22/2019 Vomiting PERCOCET [OXYCODONE-ACETAMINOPHEN]10/02/2020 Vomiting METFORMIN 03/11/2023 Diarrhea and GI Upset Fully Assessed 12/21/2023 REVIEW OF SYSTEMS: Skin: no rashes, pruritis or dry skin Eyes: no blurred or double vision or eye pain Cardiac: denies chest pain, heart palpitations or orthopnea PHYSICAL EXAM: No vitals as this was a virtual visit GENERAL: Alert, no distress, cooperative SKIN: Skin color, texture, turgor normal. No rashes or lesions. HEAD/SINUSES: No significant findings EYES: sclera non-icteric, EOMs intact. No lid lag or stare. ABDOMEN: gravid at 21+ weeks. EXTREMITIES: Normal exam of the extremities NEURO: AAO x 3, no focal deficits. The remainder of the physical exam is noncontributory. DATA: All pertinent data reviewed prior to this visit IMPRESSION: Ms. Avila is a 33 year old female at 21+ weeks gestation here for follow up regarding type 2 diabetes antepartum RECOMMENDATIONS: 1. I again counseled Charmaine Avila regarding the importance of maintaining euglycemia during . She should continue to monitor carbohydrate intake, and walk after meals, if not contraindicated. 2. I recommend she check her blood glucose fasting, and 2 hour after each meal. Fasting blood glucose targets are between 60-90mg/dl, and 2 hour post prandial blood glucose concentration should be less than 120mg/dl. Regarding her blood glucose management, I recommend: 1) check your sugars fasting (60-90 mg/dL) and 2 hours post meal (less than 120 mg/dL) using Dexcom 2) forward me your blood glucose data weekly ([email or web address])- send each thursday and I will review in conjunction with your CGM data 3) for now- continue as you are doing- take the mealtime insulin with each meal- do the best you can. NPH 25 units at bedtime and Humalog 12 units prior to each meal + additional 5 units of Humalog with any "higher carb" meals (abelino with * as you are doing Metformin ER 500 mg two tabs twice/day with meals. 4) see me in 8 weeks for f/u- virtual visit ok- my office will reach out to schedule this- 3. Ophthalmology: she has seen ophthalmology recently , no hx of DR. She will return to clinic in 8 weeks. I spent a total of 30 minutes on the date of the service which included preparing to see the patient, [id number] patient care, completing clinical documentation, obtaining and/or reviewing separately obtained history, performing a medically appropriate examination, counseling and educating the patient/family/caregiver, and ordering medications, tests, or procedures. Adeel Ramirez DO documented in this encounter [facility] 01-04-2024 Procedure note Procedure(s): EXTERNAL HOME THEATRE TECHNICIAN, CGM SYS Images from the original note were not included. [facility] 01-04-2024 Procedure note Procedure(s): EXTERNAL HOME THEATRE TECHNICIAN, CGM SYS Images from the original note were not included. documented in this encounter [facility] 12-29-2023 Telephone encounter Note Reviewed BG data- responded as follows: Obinna Montano- I reviewed your BG data (are you not using your sensor??) - if not let us know why and if we can help you get back on it. These numbers are at / near goal. For now- continue NPH 25 units at bedtime and Humalog 12 units prior to each meal + additional 5 units of Humalog with any "higher carb" meals (abelino with * as you are doing Will review again thursday thanks Dr Ramirez [facility] 12-29-2023 Miscellaneous Notes Reviewed BG data- responded as follows: Obinna Montano- I reviewed your BG data (are you not using your sensor??) - if not let us know why and if we can help you get back on it. These numbers are at / near goal. For now- continue NPH 25 units at bedtime and Humalog 12 units prior to each meal + additional 5 units of Humalog with any "higher carb" meals (abelino with * as you are doing Will review again thursday thanks Dr Ramirez documented in this encounter [facility] 12-22-2023 Telephone encounter Note 2nd risk assessment form submitted 12/22/23 Nallely Barbosa RN [facility] 12-22-2023 Miscellaneous Notes 2nd risk assessment form submitted 12/22/23 Nallely Barbosa RN documented in this encounter [facility] 12-21-2023 Progress note Formatting of t his note might be different from the original. S: Charmaine Avila is a 33 year old female who presents at 05/10/2024, by Ultrasound for a routine visit. Denies headache, visual changes, chest pain, shortness of breath, vaginal bleeding, leakage of fluid, or dysuria. Feeling well, no complaints. Was seen in ED for pink spotting last week. None since O: See flow sheet Gen: No apparent distress Abd: Gravid, nontender Anatomy US today. No report yet BG with endocrinology. Adjusting because of low BG at night. PP have been under 120 per patient. ASSESSMENT/PLAN: 1. 19 weeks gestation of - ICD9: V22.2, ICD10: Z3A.19 (primary diagnosis) Previous UTI - URINE CULTURE 2. Multigravida of advanced maternal age in second trimester - ICD9: 659.63, ICD10: O09.522 - URINE CULTURE 3. Obesity affecting in second trimester, unspecified obesity type - ICD9: 649.13, ICD10: O99.212 Rosaline Sanon MD [facility] 12-21-2023 Miscellaneous Notes S: Charmaine Avila is a 33 year old female who presents at 05/10/2024, by Ultrasound for a routine visit. Denies headache, visual changes, chest pain, shortness of breath, vaginal bleeding, leakage of fluid, or dysuria. Feeling well, no complaints. Was seen in ED for pink spotting last week. None since O: See flow sheet Gen: No apparent distress Abd: Gravid, nontender Anatomy US today. No report yet BG with endocrinology. Adjusting because of low BG at night. PP have been under 120 per patient. ASSESSMENT/PLAN: 1. 19 weeks gestation of - ICD9: V22.2, ICD10: Z3A.19 (primary diagnosis) Previous UTI - URINE CULTURE 2. Multigravida of advanced maternal age in second trimester - ICD9: 659.63, ICD10: O09.522 - URINE CULTURE 3. Obesity affecting in second trimester, unspecified obesity type - ICD9: 649.13, ICD10: O99.212 Rosaline Sanon MD documented in this encounter [facility] 12-21-2023 Instructions Marcelina Rutherford MA - 12/21/2023 9:38 AM EDT SEQUENTIAL SCREENINGS The [facility] offers sequential screenings for women who are interested in screenings for chromosomal abnormalities and certain defects during a . The sequential screen combines ultrasound and blood tests to determine the risk of chromosomal abnormalities, including Down's Syndrome (Trisomy 21) and Trisomy 18, as well as open neural tube defects including spina bifida. Ultrasound examination is performed between 11 weeks and 13 weeks gestational age. Blood tests are drawn after the ultrasound and again later in the between 15 and 21 weeks gestational age. Please let your physician know if you are interested in this testing. It will require an appointment with our medical laboratory technician. This is not an ultrasound performed by a physician in our office during a routine visit. SIGNS AND SYMPTOMS OF LABOR 1. Contractions every 10 minutes or more often 2. Clear, pink, or brownish fluid (water) leaking from vagina 3. Feeling that baby is pushing down, pressure 4. Low, dull backache 5. Cramps that feel like a period 6. Cramps with or without diarrhea If you notice any of the above symptoms, contact our office at [phone] and ask to speak with a nurse. After hours, you can call doctors registry at [phone] OR call [facility] at [phone] and ask to have the doctor field control inspector paged. If you consider this an emergency, dial 9--3 or go to your nearest emergency department. NEED HELP? Are you dealing with a violent or abusive relationship? Are you a victim of rape or sexual assult? Call [facility] ([place]) 24 hour Crisis Hotline: 980.524.5789 or 881-981-0932. MANUAL Your Guide to a Healthy manual is now on-line. Visit [email or web address] to download your free copy documented in this encounter [facility] 12-20-2023 Telephone encounter Note Reviewed BG data- responded as follows: Obinna Montano- I reviewed your BG data/CGM data- your sensor average BG is elevated at 162 mg/dL however the last sensor data I see for you is from 12/05. Are you still using your sensor?? Do you feel like you are having too much low blood sugar overnight? I would recommend that for now - you continue NPH 25 units at bedtime and Humalog 12 units prior to each meal + additional 5 units of Humalog with any "higher carb" meals (abelino with * as you are doing). Will review again next week- thanks! Dr Ramirez [facility] 12-20-2023 Miscellaneous Notes Reviewed BG data- responded as follows: Obinna Montano- Kodi reviewed your BG data/CGM data- your sensor average BG is elevated at 162 mg/dL however the last sensor data I see for you is from 12/05. Are you still using your sensor?? Do you feel like you are having too much low blood sugar overnight? I would recommend that for now - you continue NPH 25 units at bedtime and Humalog 12 units prior to each meal + additional 5 units of Humalog with any "higher carb" meals (abelino with * as you are doing). Will review again next week- thanks! Dr Ramirez documented in this encounter [facility] 12-07-2023 Telephone encounter Note Reviewed BG data- responded as follows: Obinna Montano- I reviewed your BG data- fasting numbers are trending a little low, post meal numbers look ok aside from the outlier on 12/02- I would recommend that you reduce NPH to 25 units at bedtime. Continue Humalog 12 units prior to EACH meal + additional 5 units of Humalog with any "higher carb" meals (abelino with * as you are doing). Will review again next week- thanks! ALISHA [facility] 12-07-2023 Miscellaneous Notes Reviewed BG data- responded as follows: Obinna Montano- I reviewed your BG data- fasting numbers are trending a little low, post meal numbers look ok aside from the outlier on 12/02- I would recommend that you reduce NPH to 25 units at bedtime. Continue Humalog 12 units prior to EACH meal + additional 5 units of Humalog with any "higher carb" meals (abelino with * as you are doing). Will review again next week- thanks! ALISHA documented in this encounter [facility] 11-30-2023 Telephone encounter Note ok for note off work if she desires- she is very high risk Mimi Harden MD [facility] 11-30-2023 Miscellaneous Notes ok for note off work if she desires- she is very high risk Mimi Harden MD documented in this encounter [facility] 11-29-2023 Telephone encounter Note Reviewed BG data- responded as follows: Good morning- I reviewed your BG/CGM data- your sensor average BG is at bit elevated at 152 +/- 43 mg/dL. I would recommend that you adjust insulin as follows; increase NPH to 28 units at bedtime increase Humalog to 12 units prior to EACH meal + additional 5 units of Humalog with any "higher carb" meals (abelino with * as you are doing). Will review again on thursday thanks Dr Ramirez [facility] 11-29-2023 Miscellaneous Notes Reviewed BG data- responded as follows: Good morning- I reviewed your BG/CGM data- your sensor average BG is at bit elevated at 152 +/- 43 mg/dL. I would recommend that you adjust insulin as follows; increase NPH to 28 units at bedtime increase Humalog to 12 units prior to EACH meal + additional 5 units of Humalog with any "higher carb" meals (abelino with * as you are doing). Will review again on thursday thanks Dr Ramirez documented in this encounter [facility] 11-27-2023 Progress note Formatting of t his note might be different from the original. S: Charmaine Avila is doing well today, no complaints at this time. Burning before voiding but ebtter with voiding. Needs to drink more water. SG high on urine dip Worried about increased pressure with working. No option to sit while working. Will get [employer] papers. O: See OB Data A: IUP @ 16+3 P: Declined AFP Repeat cervical length at 18 weeks Schedule u/s for anatomy at 18-20 wks EGA. Reviewed blood pressure and weight. Return to office in 4 weeks and PRN. Rosaline Sanno MD [facility] 11-27-2023 Miscellaneous Notes S: Charmaine Avila is doing well today, no complaints at this time. Burning before voiding but ebtter with voiding. Needs to drink more water. SG high on urine dip Worried about increased pressure with working. No option to sit while working. Will get [employer] papers. O: See OB Data A: IUP @ 16+3 P: Declined AFP Repeat cervical length at 18 weeks Schedule u/s for anatomy at 18-20 wks EGA. Reviewed blood pressure and weight. Return to office in 4 weeks and PRN. Rosaline Sanon MD documented in this encounter [facility] 11-27-2023 Instructions Marcelina Rutherford MA - 11/27/2023 1:17 PM EDT SEQUENTIAL SCREENINGS The [facility] offers sequential screenings for women who are interested in screenings for chromosomal abnormalities and certain defects during a . The sequential screen combines ultrasound and blood tests to determine the risk of chromosomal abnormalities, including Down's Syndrome (Trisomy 21) and Trisomy 18, as well as open neural tube defects including spina bifida. Ultrasound examination is performed between 11 weeks and 13 weeks gestational age. Blood tests are drawn after the ultrasound and again later in the between 15 and 21 weeks gestational age. Please let your physician know if you are interested in this testing. It will require an appointment with our medical laboratory technician. This is not an ultrasound performed by a physician in our office during a routine visit. SIGNS AND SYMPTOMS OF LABOR 1. Contractions every 10 minutes or more often 2. Clear, pink, or brownish fluid (water) leaking from vagina 3. Feeling that baby is pushing down, pressure 4. Low, dull backache 5. Cramps that feel like a period 6. Cramps with or without diarrhea If you notice any of the above symptoms, contact our office at [phone] and ask to speak with a nurse. After hours, you can call doctors registry at [phone] OR call [facility] at [phone] and ask to have the doctor field control inspector paged. If you consider this an emergency, dial 9--1 or go to your nearest emergency department. NEED HELP? Are you dealing with a violent or abusive relationship? Are you a victim of rape or sexual assult? Call [facility] ([place]) 24 hour Crisis Hotline: 232.543.9279 or 115-038-7363. MANUAL Your Guide to a Healthy manual is now on-line. Visit [email or web address] to download your free copy documented in this encounter [facility] 11-27-2023 Telephone encounter Note Patient has appointment today for anatomy ultrasound. Please approve order [facility] 11-27-2023 Miscellaneous Notes Patient has appointment today for anatomy ultrasound. Please approve order documented in this encounter [facility] 11-22-2023 Telephone encounter Note Reviewed BG data- responded as follows: Obinna Montano- I reviewed your BG data/ CGM data- your sensor average is 155 +/- 43 mg/dL- these numbers are not quite at goal for . I would recommend that you adjust insulin as follows: NPH 24 units at bedtime Humalog 8 units prior to EACH meal + additional 5 units of Humalog with any "higher carb" meals (abelino with * as you are doing). Will review again next week- thanks! KB [facility] 11-22-2023 Miscellaneous Notes Reviewed BG data- responded as follows: Obinna Montano- I reviewed your BG data/ CGM data- your sensor average is 155 +/- 43 mg/dL- these numbers are not quite at goal for . I would recommend that you adjust insulin as follows: NPH 24 units at bedtime Humalog 8 units prior to EACH meal + additional 5 units of Humalog with any "higher carb" meals (abelino with * as you are doing). Will review again next week- thanks! ALISHA documented in this encounter [facility] 11-19-2023 Telephone encounter Note Patient is 15w2d. Requesting refill of vitamins. Last given 04/23/2023#30 5 refills [facility] 11-19-2023 Miscellaneous Notes Patient is 15w2d. Requesting refill of vitamins. Last given 04/23/2023#30 5 refills documented in this encounter [facility] 11-19-2023 Telephone encounter Note Spoke to patient and advised as below. She will send her BG Log tomorrow. [facility] 11-19-2023 Miscellaneous Notes Spoke to patient and advised as below. She will send her BG Log tomorrow. Please contact and advise pt to forward me her BG data today or tomorrow so I can review in conjunction with her sensor data Thanks ALISHA documented in this encounter [facility] 11-19-2023 Telephone encounter Note Please contact and advise pt to forward me her BG data today or tomorrow so I can review in conjunction with her sensor data Thanks ALISHA [facility] 11-17-2023 Telephone encounter Note Please see pt's [employer] message and advise. Ofe Sharma LPN' [facility] 11-17-2023 Miscellaneous Notes Please see pt's trevint message and advise. Ofe Sharma LPN' documented in this encounter [facility] 11-09-2023 Progress note Formatting of t his note might be different from the original. RR- VB No. LOF No. CTXS No. Movement: absent. Other c/o: No. Medication list reviewed. Physical Exam See Flow Sheet Abd: soft, nontender, gravid Ext: edema: Trace A/P 13w6d Estimated Date of Delivery: 05/10/24 high risk multigravida, h/o PPROM, has cerclage. F/u US onJuly 5th scheduled DMtype 2. f/u w/ endocrine, they are managing BS f/u in 2-3 weeks or prn cont. PNV ASA prhophylaxis- cont. w/ this. contraception discussion Risks, benefits and alternatives to sterilization have been discussed with the patient. She declines reversible options including LARC. She understands sterilization is permanent, irreversible, risks of failure, regret and ectopic. In addition she understands there are surgical risks as well. She will sign title 19 later in . Mimi Harden M.D. [facility] 11-09-2023 Miscellaneous Notes RR- VB No. LOF No. CTXS No. Movement: absent. Other c/o: No. Medication list reviewed. Physical Exam See Flow Sheet Abd: soft, nontender, gravid Ext: edema: Trace A/P 13w6d Estimated Date of Delivery: 05/10/24 high risk multigravida, h/o PPROM, has cerclage. F/u US onJuly 5th scheduled DMtype 2. f/u w/ endocrine, they are managing BS f/u in 2-3 weeks or prn cont. PNV ASA prhophylaxis- cont. w/ this. contraception discussion Risks, benefits and alternatives to sterilization have been discussed with the patient. She declines reversible options including LARC. She understands sterilization is permanent, irreversible, risks of failure, regret and ectopic. In addition she understands there are surgical risks as well. She will sign title 19 later in . Mimi Harden M.D. documented in this encounter [facility] 11-09-2023 Instructions Richelle Shetty MA - 11/09/2023 3:58 PM EDT SEQUENTIAL SCREENINGS The [facility] offers sequential screenings for women who are interested in screenings for chromosomal abnormalities and certain defects during a . The sequential screen combines ultrasound and blood tests to determine the risk of chromosomal abnormalities, including Down's Syndrome (Trisomy 21) and Trisomy 18, as well as open neural tube defects including spina bifida. Ultrasound examination is performed between 11 weeks and 13 weeks gestational age. Blood tests are drawn after the ultrasound and again later in the between 15 and 21 weeks gestational age. Please let your physician know if you are interested in this testing. It will require an appointment with our medical laboratory technician. This is not an ultrasound performed by a physician in our office during a routine visit. SIGNS AND SYMPTOMS OF LABOR 1. Contractions every 10 minutes or more often 2. Clear, pink, or brownish fluid (water) leaking from vagina 3. Feeling that baby is pushing down, pressure 4. Low, dull backache 5. Cramps that feel like a period 6. Cramps with or without diarrhea If you notice any of the above symptoms, contact our office at [phone] and ask to speak with a nurse. After hours, you can call doctors registry at [phone] OR call [facility] at [phone] and ask to have the doctor field control inspector paged. If you consider this an emergency, dial 9-1-1 or go to your nearest emergency department. NEED HELP? Are you dealing with a violent or abusive relationship? Are you a victim of rape or sexual assult? Call [facility] ([place]) 24 hour Crisis Hotline: 563.417.5133 or 866-659-4464. MANUAL Your Guide to a Healthy manual is now on-line. Visit [email or web address] to download your free copy documented in this encounter [facility] 11-05-2023 History of Present illness Narrative Spoke with patient, scheduled 01/04/2024 @ 11:00 am (virtual appointment) Referring Physician: Vasu Gaxiola APRN, CNP My final recommendations will be communicated back to the requesting physician by way of shared Medical record or letter via US mail. Reason for consultation: Follow up evaluation- type 2 diabetes antepartum. This Team Access Model visit is a virtual encounter. It required patient-provider interaction for the medical decision making as documented below. I have communicated my name and active licensure. The patient's identity and physical location were verified at the time of this visit. Either the patient or their legal branch service representative has been informed of the risks and benefits of -- and alternatives to -- treatment through a remote evaluation and consents to proceed with the evaluation remotely. HISTORY OF PRESENT ILLNESS; Ms. Avila is a 33 year old presenting at 13+ weeks gestation who is here for follow up regarding type 2 diabetes antepartum. Last visit here was 09/26/23. Pt with GDM in all three previous pregnancies. She was initially diagnosed with diabetes in 2016- after delivery of third child after post GTT. Required insulin during third (as well as glyburide) No known microvascular or macrovascular complications - states she follows with ophthalmology annually - saw within the last month, no DR. Her current regimen is as follows: Metformin ER 500 mg two tabs twice/day. Was taking Trulicity prior to the - but discontinued and has remained off . Insulin was initiated at her first visit wit ia and has been adjusted in between visits- most recently on 10/24- her current regimen is as follows: NPH 20 units at bedtime Humalog 6 units prior to EACH meal + additional 5 units of Humalog with any "higher carb" meals (abelino with * as you are doing) Metformin ER 500 mg two tabs twice/day with meals. She has been checking her BG using Dexcom as below- sensor average BG is 147 mg/dL This continuous glucose monitoring (sensor) data can be found in the procedure note CGM Report Interpretation: 1. Nocturnal glucose control: Uncontrolled glucose NOT previously detected: No If yes: Not applicable Notes: overnight BG control good on recent increase in insulin. 2. Post prandial glucose excursions: Uncontrolled glucose NOT previously detected: No If yes: Hyperglycemia detected Notes: occasional post prandial spikes 3. Hypoglycemia incidence: Uncontrolled glucose NOT previously detected: No Notes: infrequent if at all 4. Other (e.g., exercise/activity): n/a Hypoglycemia frequency: n/a Hypoglycemia awareness: n/a Hyperglycemia Symptoms: denies blurry vision reports polyuria denies polydipsia reports nocturia denies rapid weight loss Sees OBGYN on 11/08. + nausea, no emesis. Had cerclage done last week. No complaints/concerns at this time- PAST MEDICAL HISTORY Diagnosis Date Anxiety state Atrial fibrillation (HCC) Cardiac arrest (HCC) With subsequent A. fib after initiation of anesthesia June 2016 with tubal, converted with diltiazem after 11 hours, she follows with cardiology Constipation during in first trimester 09/16/2023 Reviewed Colace and increased hydration. Diabetes type 2, controlled (HCC) 2015 GERD (gastroesophageal reflux disease) History of depression Mixed hyperlipidemia Morbid obesity (HCC) Tobacco dependence PAST SURGICAL HISTORY Procedure Laterality Date CHOLECYSTECTOMY D&C, DIAG AND/OR THERAPEUTIC 04/16/2023 retained placenta after 16 week demise/PPROM delivery DILATION & CURETTAGE DX&/THER NONOBSTETRIC 2016 multiple procedures TONSILLECTOMY & ADENOIDECTOMY <AGE 10 FAMILY HISTORY Problem Relation Age of Onset Hypertension Mother No Known Problems Father No Known Problems Sister No Known Problems Brother Cancer Maternal Grandmother Sinus Diabetes Paternal Grandmother Heart Failure Paternal Grandmother Heart Failure Paternal Grandfather Social History Tobacco Use Smoking status: Every Day Packs/day: 0.50 Years: 20.00 Additional pack years: 0.00 Total pack years: 10.00 Types: Cigarettes Smokeless tobacco: Never Vaping Use Vaping Use: Never used Substance Use Topics Alcohol use: Not Currently Drug use: Never Current Outpatient Medications Medication Sig Dispense Refill insulin lispro (HUMALOG KWIKPEN) 100 unit/mL 5 units prior to each meal + scale 5 Each 11 insulin NPH (HUMULIN N NPH INSULIN KWIKPEN) 100 unit/mL (3 mL) injection pen 20 units at bedtime 5 Each 11 lidocaine (LIDODERM) 5 % APPLY 1 PATCH DIRECTED EVERY 24 HOURS. REMOVE OLD PATCH PRIOR TO PLACING NEW PATCH. LOCATION: LOW BACK 30 Patch 2 DEXCOM G7 SENSOR stephanie INSERT 1 SENSOR ON THE BACK OF ARM. REPLACE EVERY 10 DAYS DIRECTED. 3 Each 2 sertraline (ZOLOFT) 100 mg tablet take 1 tablet by mouth once daily. 90 tablet 2 Insulin [place], Disposable, (PEN NEEDLE) 32 gauge x 5/32" Use to inject insulin up to 4 times per day. 150 Each 5 metFORMIN ER (GLUCOPHAGE XR) 500 mg 24 hr tablet Take 2 tablets by mouth two times a day with meals. 360 tablet 3 aspirin, enteric coated (ASPIRIN, ENTERIC COATED) 81 mg EC tablet Take 1 tablet by mouth once daily. 90 tablet 3 ketotifen fumarate (ZADITOR) 0.025 % (0.035 %) ophthalmic solution Use 1 Drop in both eyes two times a day. As needed 5 mL 11 loratadine (CLARITIN) 10 mg tablet Take 1 tablet by mouth once daily as needed. 90 tablet 1 albuterol HFA (PROVENTIL HFA, VENTOLIN HFA) 90 mcg/actuation inhaler Inhale 2 Puffs as instructed every 4 hours as needed for wheezing/shortness of breath. 1 Each 2 Tuhuvcyt-Xp-Ygr-Fe-FA tab Take 1 tablet by mouth once daily. 30 tablet 5 blood sugar diagnostic (EpitiroTOUCH VERIO TEST STRIPS) test strip Use as instructed 4 times daily (Patient taking differently: Use as instructed 4 times daily For back up use only due to use of Dexcom) 150 Strip 11 lancets (EpitiroTOUCH DELICA LANCETS) 30 gauge Use as instructed 4 times daily (Patient taking differently: Use as instructed 4 times daily For back up use only due to use of Dexcom) 150 Each 11 Blood-Glucose Meter (BLOOD GLUCOSE MONITORING) monitoring kit One touch. Use as instructed. Please use voucher Bin [id number]; N [facility]; Group [id number]; ID NOCHARGEMETR (Patient taking differently: One touch. Use as instructed. Please use voucher Bin [id number]; PCN [facility]; Group [id number]; ID NOCHARGEMETR For back up use only due to use of Dexcom) 1 Kit 0 Insulin [place], Disposable, (PEN NEEDLE) 32 gauge x 5/32" Use to inject insulin up to 4 times per day. (Patient taking differently: Use to inject insulin up to 4 times per day. For back up use only due to use of Dexcom) 100 Each 5 ondansetron orally disintegrating (ZOFRAN ODT) 4 mg disintegrating tablet Take 1 tablet by mouth every 6 hours as needed for nausea/vomiting. 10 tablet 0 Blood-Glucose Meter,Continuous (DEXCOM G7 HOME THEATRE TECHNICIAN) [facility] [place] Use to test blood sugar as directed. 1 Each 0 alcohol swabs (ALCOHOL PADS) Apply 1 application to affected area once daily. 100 Each 2 blood sugar diagnostic (BLOOD GLUCOSE TEST) test strip Test blood sugar(s) 3 times daily. Dx: Type 2 DM - Controlled E11.9 Insulin: Yes (Patient taking differently: Test blood sugar(s) 3 times daily. Dx: Type 2 DM - Controlled E11.9 Insulin: Yes For back up use only due to use of Dexcom) 100 Strip 5 fluticasone (FLONASE) 50 mcg/actuation nasal spray Use 1 [place] in each nostril once daily. As needed No current facility-administered medications for this visit. Allergies As of Date: 11/05/2023 Allergen Noted Reaction CODEINE 10/02/2020 Other: See Comments JARDIANCE [EMPAGLIFLOZIN] 08/26/2021 Intolerance NALBUPHINE 10/02/2020 Vomiting OXYCODONE 03/22/2019 Vomiting PERCOCET [OXYCODONE-ACETAMINOPHEN]10/02/2020 Vomiting METFORMIN 03/11/2023 Diarrhea and GI Upset Fully Assessed 11/05/2023 REVIEW OF SYSTEMS: Skin: no rashes, pruritis or dry skin Eyes: no blurred or double vision or eye pain Cardiac: denies chest pain, heart palpitations or orthopnea PHYSICAL EXAM: No vitals as this was a virtual visit GENERAL: Alert, no distress, cooperative SKIN: Skin color, texture, turgor normal. No rashes or lesions. HEAD/SINUSES: No significant findings EYES: sclera non-icteric, EOMs intact. No lid lag or stare. ABDOMEN: gravid at 13 weeks. EXTREMITIES: Normal exam of the extremities NEURO: AAO x 3, no focal deficits. The remainder of the physical exam is noncontributory. DATA: All pertinent data reviewed prior to this visit IMPRESSION: Ms. Avila is a 33 year old female at 13+ weeks gestation here for follow up regarding type 2 diabetes antepartum RECOMMENDATIONS: 1. I again counseled Charmaine Avila regarding the importance of maintaining euglycemia during . She should continue to monitor carbohydrate intake, and walk after meals, if not contraindicated. 2. I recommend she check her blood glucose fasting, and 2 hour after each meal. Fasting blood glucose targets are between 60-90mg/dl, and 2 hour post prandial blood glucose concentration should be less than 120mg/dl. Regarding her blood glucose management, I recommend: 1) check your sugars fasting (60-90 mg/dL) and 2 hours post meal (less than 120 mg/dL) using Dexcom 2) forward me your blood glucose data weekly ( )- send each thursday and I will review in conjunction with your CGM data 3) continue Metformin ER 500 mg two tabs twice/day with meals 4) continue current insulin regimen: NPH 20 units at bedtime Humalog 6 units prior to EACH meal + additional 5 units of Humalog with any "higher carb" meals (abelino with * as you are doing) 5) see me in 8 weeks for f/u- virtual visit ok- my office will reach out to schedule this- 3. Ophthalmology: she has seen ophthalmology recently , no hx of DR. She will return to clinic in 8 weeks. I spent a total of 30 minutes on the date of the service which included preparing to see the patient, gebk-fx-[id number] patient care, completing clinical documentation, obtaining and/or reviewing separately obtained history, performing a medically appropriate examination, counseling and educating the patient/family/caregiver, and ordering medications, tests, or procedures. Adeel Ramirez DO documented in this encounter [facility] 11-05-2023 Procedure note Procedure(s): EXTERNAL HOME THEATRE TECHNICIAN, CGM SYS Images from the original note were not included. [facility] 11-05-2023 Procedure note Procedure(s): EXTERNAL HOME THEATRE TECHNICIAN, CGM SYS Images from the original note were not included. documented in this encounter [facility] 10-31-2023 Note HNO ID: [id number] Author: NOTE, INTERFACE, ? Service: ? Author Type: ? Type: Progress Notes Filed: 10/31/2023 03:28 Note Text: Epic Scheduled Downtime: 10/31/2023 1:00:00 AM to 10/31/2023 3:02:00 AM [facility] 10-30-2023 Note HNO ID: [id number] Author: JEN DIXON APRN.EDITORIAL PROJECT MANAGER Service: Nursing Author Type: Nurse Breeding Manager Type: Anesthesia Procedure Notes Filed: 10/30/2023 12:25 Note Text: ANESTHESIOLOGY PROCEDURE NOTE Spinal Block General Information Procedure Start Time/Medication Administration: 10/30/2023 12:14 PM Procedure End time: 10/30/2023 12:16 PM Patient location during procedure: OR Timeout Performed Pre-procedure: timeout performed Consent Obtained: Yes Patient identity confirmed: arm band Reason for Block: primary surgical anesthetic Staffing EDITORIAL PROJECT MANAGER: Jen Dixon APRN.EDITORIAL PROJECT MANAGER Performed by: COLETTE Preparation Sterility Preparation: hand hygiene performed prior to procedure, sterile gloves, drapes, and procedure tray, surgical cap used, mask used, sterile drape used during line insertion, skin prep agent completely dried prior to procedure Sterility Technique Not Completely Performed Due to Extreme Emergency: No Site Prep: Betadine Procedure Details Patient Position: sitting Ultrasound Guided: No Monitoring: Pulse Ox and NIBP Approach: Midline Location: L4-5 Injection Technique: single-shot Needle Needle Type: pencil-tip Needle Gauge: 24 G Needle Length: 4 in CSF: CSF clear Assessment Sensory Level: T4 Events: tolerated well Medications Administered bupivacaine-dextrose 0.75 % (7.5 mg/mL) injection (SENSORCAINE MPF SPINAL) - INTRASPINAL 1.4 mL - 10/30/2023 12:14:00 PM SIGNATURE: Jen Dixon APRN.CRNA PATIENT NAME: Charmaine Avila DATE: October 30, 2023 TIME: 12:25 PM CSN: [id number] [facility] 10-27-2023 Telephone encounter Note Charmaine called and she is unable to make the appt on . She was rescheduled for Thursday10/30/23 @ 1200. Updated that she needs to be here at 1000 [facility] 10-27-2023 Miscellaneous Notes Charmaine called and she is unable to make the appt on . She was rescheduled for Thursday10/30/23 @ 1200. Updated that she needs to be here at 1000 Vm left for Charmaine to arrive at LD 10/29/23 @ 0600 for her cerclage. documented in this encounter [facility] 10-27-2023 Telephone encounter Note Vm left for Charmaine to arrive at LD 10/29/23 @ 0600 for her cerclage. [facility] 10-27-2023 History of Present illness Narrative Images from the original note were not included. [facility] [place] OUTPATIENT VISIT DATE October 27, 2023 OUTPATIENT VISIT TYPE MATERNAL- MEDICINE CONSULT REFERRING PROVIDER: Vasu Gaxiola APRN.TIE UP WORKER Recommendations from today's consultation will be conveyed through the electronic medical record. History of Present Illness: 33 year old at 12w0d with Estimated Date of Delivery: 05/10/24 presenting for consultation with Maternal- Medicine at the [facility] in the setting of Type 2 Diabetes. She was diagnosed with T2DM in 2016 after having GDM in her 3 pregnancies. She follows with [facility] endocrinology (Dr Ramirez), no known complications of her diabetes, up to date on eye exam. She currently uses Dexcom CGM, and takes: Metformin 1000mg twice daily NPH nightly 20u Humalog Her obstetric history is complicated by history 24 week PPROM/ delivery (had been diagnosed with short cervix 22 weeks and prescribed vaginal progesterone), child is meeting milestones with limited delay. She had D&C for retained placenta. Her next complicated by previable PPROM (03/2023) in 16th week, miscarried the required D&C for retained placenta. She declined genetic testing. She smokes cigarettes She has a history of cardiac arrest during a previous tubal ligation procedure. She had a lap brando prior to this without anesthesia complications, and since then had general anesthesia without complication. She says they "worked me up for everything and never found anything wrong". She had regional anesthesia in past deliveries without complication. Physical Activity Physical Activity: Sufficiently Active (05/01/2023) Exercise Vital Sign Days of Exercise per Week: 7 days Minutes of Exercise per Session: 150+ min Her relevant histories have been updated and are reviewed below: Obstetric History: # 1 - Date: 02/23/08, Sex: Male, Weight: 9 lb 3 oz (4.167 kg), GA: 39w0d, Delivery: Vaginal, Spontaneous, Apgar1: None, Apgar5: None, Living: Living, Comments: None # 2 - Date: 02/04/10, Sex: Male, Weight: 9 lb 2 oz (4.139 kg), GA: 37w1d, Delivery: Vaginal, Spontaneous, Apgar1: None, Apgar5: None, Living: Living, Comments: None # 3 - Date: 09/08/15, Sex: Male, Weight: 1 lb 11 oz (0.765 kg), GA: 24w0d, Delivery: Vaginal, Spontaneous, Apgar1: None, Apgar5: None, Living: Living, Comments: PPROM, GDM, Cord avulsion,D&C for retained placenta # 4 - Date: 04/16/23, Sex: Female, Weight: None, GA: 16w4d, Delivery: None, Apgar1: None, Apgar5: None, Living: Demise, Comments: Active labor, No FHT, Spontaneous with retained placenta, EBL 800 ml, 0/0 # 5 - Date: None, Sex: None, Weight: None, GA: None, Delivery: None, Apgar1: None, Apgar5: None, Living: None, Comments: None Past Medical History: PAST MEDICAL HISTORY Diagnosis Date Anxiety state Atrial fibrillation ([facility]) Cardiac arrest ([facility]) With subsequent A. fib after initiation of anesthesia June 2016 with tubal, converted with diltiazem after 11 hours, she follows with cardiology Diabetes type 2, controlled ([facility]) 2015 GERD (gastroesophageal reflux disease) History of depression Mixed hyperlipidemia Morbid obesity ([facility]) Tobacco dependence Past Surgical History: PAST SURGICAL HISTORY Procedure Laterality Date CHOLECYSTECTOMY D&C, DIAG AND/OR THERAPEUTIC 04/16/2023 retained placenta after 16 week demise/PPROM delivery DILATION & CURETTAGE DX&/THER NONOBSTETRIC 2016 multiple procedures TONSILLECTOMY & ADENOIDECTOMY <AGE 10 Medications: Current Outpatient Medications on File Prior to Visit Medication Sig insulin lispro (HUMALOG KWIKPEN) 100 unit/mL 5 units prior to each meal + scale insulin NPH (HUMULIN N NPH INSULIN KWIKPEN) 100 unit/mL (3 mL) injection pen 20 units at bedtime lidocaine (LIDODERM) 5 % APPLY 1 PATCH DIRECTED EVERY 24 HOURS. REMOVE OLD PATCH PRIOR TO PLACING NEW PATCH. LOCATION: LOW BACK DEXCOM G7 SENSOR stephanie INSERT 1 SENSOR ON THE BACK OF ARM. REPLACE EVERY 10 DAYS DIRECTED. sertraline (ZOLOFT) 100 mg tablet take 1 tablet by mouth once daily. Insulin [place], Disposable, (PEN NEEDLE) 32 gauge x 5/32" Use to inject insulin up to 4 times per day. metFORMIN ER (GLUCOPHAGE XR) 500 mg 24 hr tablet Take 2 tablets by mouth two times a day with meals. aspirin, enteric coated (ASPIRIN, ENTERIC COATED) 81 mg EC tablet Take 1 tablet by mouth once daily. ketotifen fumarate (ZADITOR) 0.025 % (0.035 %) ophthalmic solution Use 1 Drop in both eyes two times a day. As needed loratadine (CLARITIN) 10 mg tablet Take 1 tablet by mouth once daily as needed. albuterol HFA (PROVENTIL HFA, VENTOLIN HFA) 90 mcg/actuation inhaler Inhale 2 Puffs as instructed every 4 hours as needed for wheezing/shortness of breath. Dkytgnka-Pe-Uky-Fe-FA tab Take 1 tablet by mouth once daily. blood sugar diagnostic (EpitiroTOUCH VERIO TEST STRIPS) test strip Use as instructed 4 times daily (Patient taking differently: Use as instructed 4 times daily For back up use only due to use of Dexcom) lancets (Aequus TechnologiesUCH DELICA LANCETS) 30 gauge Use as instructed 4 times daily (Patient taking differently: Use as instructed 4 times daily For back up use only due to use of Dexcom) Blood-Glucose Meter (BLOOD GLUCOSE MONITORING) monitoring kit One touch. Use as instructed. Please use voucher Bin [id number]; [facility]; Group [id number]; ID NOCHARGEMETR (Patient taking differently: One touch. Use as instructed. Please use voucher Bin [id number]; [facility]; Group [id number]; ID NOCHARGEMETR For back up use only due to use of Dexcom) Insulin [place], Disposable, (PEN NEEDLE) 32 gauge x 5/32" Use to inject insulin up to 4 times per day. (Patient taking differently: Use to inject insulin up to 4 times per day. For back up use only due to use of Dexcom) ondansetron orally disintegrating (ZOFRAN ODT) 4 mg disintegrating tablet Take 1 tablet by mouth every 6 hours as needed for nausea/vomiting. Blood-Glucose Meter,Continuous (DEXCOM G7 HOME THEATRE TECHNICIAN) [facility] Use to test blood sugar as directed. alcohol swabs (ALCOHOL PADS) Apply 1 application to affected area once daily. blood sugar diagnostic (BLOOD GLUCOSE TEST) test strip Test blood sugar(s) 3 times daily. Dx: Type 2 DM - Controlled E11.9 Insulin: Yes (Patient taking differently: Test blood sugar(s) 3 times daily. Dx: Type 2 DM - Controlled E11.9 Insulin: Yes For back up use only due to use of Dexcom) fluticasone (FLONASE) 50 mcg/actuation nasal spray Use 1 [place] in each nostril once daily. As needed Allergies: ALLERGIES Allergen Reactions Codeine Other: See Comments Jardiance [Empaglif* Intolerance Body aches, headaches earache Nalbuphine Vomiting Oxycodone Vomiting Percocet [Oxycodone* Vomiting Metformin Diarrhea, GI Upset Rapid release only-pt states OK to take ER Social History: Social History Tobacco Use Smoking status: Every Day Packs/day: 0.50 Years: 20.00 Additional pack years: 0.00 Total pack years: 10.00 Types: Cigarettes Smokeless tobacco: Never Vaping Use Vaping Use: Never used Substance Use Topics Alcohol use: Not Currently Drug use: Never Food Insecurity: No Food Insecurity (05/01/2023) Hunger Vital Sign Worried About Running Out of Food in the Last Year: Never true Ran Out of Food in the Last Year: Never true Family History: FAMILY HISTORY Problem Relation Age of Onset Hypertension Mother No Known Problems Father No Known Problems Sister No Known Problems Brother Cancer Maternal Grandmother Sinus Diabetes Paternal Grandmother Heart Failure Paternal Grandmother Heart Failure Paternal Grandfather Review of Systems: Negative other than as noted above. Physical Exam: BP 110/62 Wt 232 lb (105.2 kg) LMP 07/28/2023 (Exact Date) BMI 35.80 kg/m Gen: Well-appearing, no acute distress CV/Resp: Non-labored breathing on room air Abd: Gravid, non-tender during US exam Ext: Moving spontaneously, no significant edema b/l Labs: HbA1c 7.1 Cr 0.44 Urine P:Cr 0.14 TSH 1.140 EKG in 2021 normal limits OB US today shows: Impression 1. Single, live, intrauterine . 2. [place] rump length measurement is consistent with the established gestational age. 3. No gross abnormalities are noted. 4. The nuchal translucency measurement appears within normal limits at 1.3 mm. Maternal Structures: Right Ovary: Size 30 mm x 34 mm x 30 mm Left Ovary: Size 30 mm x 27 mm x 28 mm Assessment and Plan: 33 year old at 12w0d presenting for MFM consultation due to pre-existing type 2 diabetes, history delivery and second trimester loss. Based on our review of the medical records and the patient's stated history, we discussed with Charmaine how diabetes can affect her current , including: Preconceptual/first trimester A1c is closely related to miscarriage risk as well as congenital malformation risk, most specifically of the central nervous and cardiovascular systems. She was counseled that the [place] [employer] recommends an A1c of less than 7 mg/dL prior to conception to minimize risk of defects to the general population risk (3-5%). The higher the A1c, the greater the risk of defect, which can reach as high as 25% with an A1c of 10 mg/dL or greater. Anatomy ultrasound is reassuring today. Risks of the diabetic were reviewed including growth disturbance (most commonly, large babies), increased risk of preeclampsia (especially with a diagnosis of preexisting hypertension or nephropathy), possible delivery for macrosomia, in addition to the possibility of intrauterine demise (this risk is decreased significantly, but not completely, with optimal glucose control and compliance with testing). Risks to the patient's , including possible intensive care unit stay, hypoglycemia, jaundice, metabolic abnormalities and respiratory complications were reviewed, all less likely with optimal glucose control and delivery at term gestation. She was counseled regarding the need for increased surveillance in a affected by diabetes including early dating of the and an early anatomic survey, detailed anatomic survey and echocardiogram at 22-24 weeks. We reviewed the need for serial growth scans beginning at 24 weeks to assess growth as well as twice weekly testing beginning at 32 weeks. Delivery by 39 weeks is recommended, unless co-morbid complications arise. Mode of delivery should be based on standard obstetrical practices. We discussed her OB history and concern for cervical insufficiency based on her history. Reviewed that vaginal progesterone alone as prophylactic measure may not be sufficiently supported by evidence, although may help if cervical shortening noted. We did discuss option of cervical length screening versus prophylactic cerclage placement. We discussed risks/benefits of cerclage and she would like to move forward with prophylactic cerclage. She prefers CCAG, we signed consents today after reviewing risks/benefits/alternatives of the procedure. She will begin flagyl as prescribed for BV. Problem List Items Addressed This Visit Cardiovascular History of atrial fibrillation Overview Occurred after attempted tubal ligation, went into cardiac arrest with anesthesia Unknown etiology has tolerated GA both before and after this event without complication Pulmonary Asthma during Overview Uses Albuterol once a month. Advised to stop smoking. No Hemabate with delivery. Tobacco use disorder complicating , childbirth, or puerperium, antepartum, unspecified trimester Overview Smoking 1/2 pack per day. Cessation encouraged, reviewed risk with history. Risks reviewed. Endocrinology Pre-existing type 2 diabetes mellitus during in first trimester Overview Hgb A1c 7.1% Follows with Dr. Ramirez of endocrinology. 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 USN shows oligo. Had PPROM at 24 weeks last . Child overall meeting milestones with limited delay. Patient desired conservative management given past history. Presented to [facility] and miscarried, required D&C for placenta Plan history indicated cerclage, requested at [facility] History of delivery of macrosomal Overview First two pregnancies were delivered at 9lb 2 oz and 9 lb 3 oz Bacterial vaginitis Overview October 15, 2023 Treated. Mimi Harden MD Psychiatry Anxiety and depression Overview Taking Zoloft. Denies need for increased dosage at this time. Monitor throughout . Mental health resources provided OB visit Other AMA (advanced maternal age) multigravida 35+, second trimester Overview Plans for NT scan and [id number]. Reviewed risks of AMA. Taking ASA 81 mg. History of labor, current , first trimester Overview 25 week delivery had been diagnosed with short cervix 22 weeks per [facility] note PPROM AT 16 Weeks/loss next Plan history indicated cerclage Obesity affecting in first trimester Overview Pre BMI 34 Taking ASA Hx of delivery, currently , second trimester Overview -25wk rupture of membranes and delivery, had been diagnosed with short cervix on US 22 weeks ([facility]) Followed by 16w PPROM/loss Plan for history indicated cerclage this Other Visit Diagnoses Encounter for supervision of high risk in first trimester, antepartum Multigravida of advanced maternal age in first trimester Supervision of other high risk pregnancies, first trimester Encounter for (NT) nuchal translucency scan 12 weeks gestation of Consultation requested by Vasu Gaxiola CNP for an opinion regarding complicated history, T2DM. My final recommendations will be communicated back to the requesting physician by way of shared Medical record or letter to requesting physician via US mail. I spent 55 minutes in the visit, with more than 50% of the total [id number] time of the visit in counseling / coordination of care. Thank you for allowing us to participate in the care of this patient. Please do not hesitate to contact our office with any questions or concerns. Kimberly Gibbons MD October 27, 2023 1:13 PM documented in this encounter [facility] 10-25-2023 Telephone encounter Note Reviewed BG data- responded as follows: Good morning- I reviewed your BG/CGM data- your sensor average is 157 +/- 42 mg/dL- these numbers are not quite at goal. I would recommend that you increase NPH to 20 units at bedtime. Start Humalog 5 units prior to EACH meal. take additional 5 units of Humalog with any "higher carb" meals (abelino with * as you are doing) continue Metformin ER 500 mg two tabs twice/day with meals. Will review again next week- thanks! Dr Ramirez [facility] 10-25-2023 Miscellaneous Notes Reviewed BG data- responded as follows: Good morning- I reviewed your BG/CGM data- your sensor average is 157 +/- 42 mg/dL- these numbers are not quite at goal. I would recommend that you increase NPH to 20 units at bedtime. Start Humalog 5 units prior to EACH meal. take additional 5 units of Humalog with any "higher carb" meals (abelino with * as you are doing) continue Metformin ER 500 mg two tabs twice/day with meals. Will review again next week- thanks! Dr Ramirez documented in this encounter [facility] 10-22-2023 Telephone encounter Note The following approved medication requests have been transmitted electronically. Requested Prescriptions Signed Prescriptions Disp Refills lidocaine (LIDODERM) 5 % 30 Patch 2 Sig: APPLY 1 PATCH DIRECTED EVERY 24 HOURS. REMOVE OLD PATCH PRIOR TO PLACING NEW PATCH. LOCATION: LOW BACK Authorizing Provider: JUNIOR JEONG DEXCOM G7 SENSOR stephanie 3 Each 2 Sig: INSERT 1 SENSOR ON THE BACK OF ARM. REPLACE EVERY 10 DAYS DIRECTED. Authorizing Provider: JUNIOR JEONG sertraline (ZOLOFT) 100 mg tablet 90 tablet 2 Sig: take 1 tablet by mouth once daily. Authorizing Provider: JUNIOR JEONG MD [facility] 10-22-2023 Miscellaneous Notes The following approved medication requests have been transmitted electronically. Requested Prescriptions Signed Prescriptions Disp Refills lidocaine (LIDODERM) 5 % 30 Patch 2 Sig: APPLY 1 PATCH DIRECTED EVERY 24 HOURS. REMOVE OLD PATCH PRIOR TO PLACING NEW PATCH. LOCATION: LOW BACK Authorizing Provider: JUNIOR JEONG DEXCOM G7 SENSOR stephanie 3 Each 2 Sig: INSERT 1 SENSOR ON THE BACK OF ARM. REPLACE EVERY 10 DAYS DIRECTED. Authorizing Provider: JUNIOR JEONG sertraline (ZOLOFT) 100 mg tablet 90 tablet 2 Sig: take 1 tablet by mouth once daily. Authorizing Provider: JUNIOR JEONG MD Patient has been identified by name and date of : yes Patient phones for refill(s): Requested Prescriptions Pending Prescriptions Disp Refills lidocaine (LIDODERM) 5 % [Pharmacy Med Name: lidocaine 5 % topical patch] 30 Patch 2 Sig: APPLY 1 PATCH DIRECTED EVERY 24 HOURS. REMOVE OLD PATCH PRIOR TO PLACING NEW PATCH. LOCATION: LOW BACK DEXCOM G7 SENSOR stephanie [Pharmacy Med Name: Dexcom G7 Sensor device] 3 Each 2 Sig: INSERT 1 SENSOR ON THE BACK OF ARM. REPLACE EVERY 10 DAYS DIRECTED. sertraline (ZOLOFT) 100 mg tablet [Pharmacy Med Name: sertraline 100 mg tablet] 90 tablet 2 Sig: take 1 tablet by mouth once daily. Date of last office visit in primary care: 08/05/2023 Date of next office visit in primary care: 02/12/2024 Please advise. Thank you. Julissa Dickinson MA. documented in this encounter [facility] 10-21-2023 Telephone encounter Note Patient has been identified by name and date of : yes Patient phones for refill(s): Requested Prescriptions Pending Prescriptions Disp Refills lidocaine (LIDODERM) 5 % [Pharmacy Med Name: lidocaine 5 % topical patch] 30 Patch 2 Sig: APPLY 1 PATCH DIRECTED EVERY 24 HOURS. REMOVE OLD PATCH PRIOR TO PLACING NEW PATCH. LOCATION: LOW BACK DEXCOM G7 SENSOR stephanie [Pharmacy Med Name: Dexcom G7 Sensor device] 3 Each 2 Sig: INSERT 1 SENSOR ON THE BACK OF ARM. REPLACE EVERY 10 DAYS DIRECTED. sertraline (ZOLOFT) 100 mg tablet [Pharmacy Med Name: sertraline 100 mg tablet] 90 tablet 2 Sig: take 1 tablet by mouth once daily. Date of last office visit in primary care: 08/05/2023 Date of next office visit in primary care: 02/12/2024 Please advise. Thank you. Julissa Dickinson MA. [facility] 10-16-2023 Telephone encounter Note Called patient. Left a message for her to send BG log and upload her dexcom. She manually do it from home [facility] 10-16-2023 Miscellaneous Notes Called patient. Left a message for her to send BG log and upload her dexcom. She manually do it from home documented in this encounter [facility] 10-15-2023 Telephone encounter Note Patient notified and voiced understanding. Humera Levi RN [facility] 10-15-2023 Miscellaneous Notes Patient notified and voiced understanding. Humera Levi RN BV positive. To treat with Flagyl 500mg PO BID for 7 days. 1) No alcohol during treatment and for 24 hours after last dose. 2) No intercourse during treatment. 3) Probiotic by mouth once daily for 30 days or as needed. Currently 10 wks - will send Flagyl to pharmacy she can pick it up and start it after 12 wks. Rut Stiles APRN.CNP documented in this encounter [facility] 10-15-2023 Telephone encounter Note BV positive. To treat with Flagyl 500mg PO BID for 7 days. 1) No alcohol during treatment and for 24 hours after last dose. 2) No intercourse during treatment. 3) Probiotic by mouth once daily for 30 days or as needed. Currently 10 wks - will send Flagyl to pharmacy she can pick it up and start it after 12 wks. Rut Stiles APRN.CNP [facility] 10-14-2023 Telephone encounter Note Patient does not need to see a [place] provider on October 26, only MFM and NT that day. please get her in w/ licensed direct entry midwife virtually or in [place] for dietary teaching and cancel appointment for licensed direct entry midwife on Thursday this week. [facility] 10-14-2023 Miscellaneous Notes Patient does not need to see a [place] provider on October 26, only MFM and NT that day. please get her in w/ licensed direct entry midwife virtually or in [place] for dietary teaching and cancel appointment for licensed direct entry midwife on Thursday this week. documented in this encounter [facility] 10-14-2023 Progress note Formatting of t his note might be different from the original. RR- VB No. LOF No. CTXS No. Movement: absent. Other c/o: No. Medication list reviewed. Physical Exam See Flow Sheet Abd: soft, nontender, gravid A/P 10w1d Estimated Date of Delivery: 05/10/24 Labs: all pn labs and baseline preeclampsia labs today. Type 2 DM- follow w/ endocrine, hgb a1 c today, cont. current meds; MFM consult tomorrow adv maternal age- desires NITP for aneuploidy screening tob use in - no plans to stop or cfhange to nicotine patches at this time, encouraged to cut back cont. PNV f/u in 2-3 weeks or prn NT ordered reschedule MFM for here in 2 weeks h/o trich- tested today Mimi Harden M.D. [facility] 10-14-2023 Miscellaneous Notes RR- VB No. LOF No. CTXS No. Movement: absent. Other c/o: No. Medication list reviewed. Physical Exam See Flow Sheet Abd: soft, nontender, gravid A/P 10w1d Estimated Date of Delivery: 05/10/24 Labs: all pn labs and baseline preeclampsia labs today. Type 2 DM- follow w/ endocrine, hgb a1 c today, cont. current meds; MFM consult tomorrow adv maternal age- desires NITP for aneuploidy screening tob use in - no plans to stop or cfhange to nicotine patches at this time, encouraged to cut back cont. PNV f/u in 2-3 weeks or prn NT ordered reschedule MFM for here in 2 weeks h/o trich- tested today Mimi Harden M.D. documented in this encounter [facility] 10-14-2023 Instructions Val OliveiraJOSLYN - 10/14/2023 10:01 AM EDT SEQUENTIAL SCREENINGS The [facility] offers sequential screenings for women who are interested in screenings for chromosomal abnormalities and certain defects during a . The sequential screen combines ultrasound and blood tests to determine the risk of chromosomal abnormalities, including Down's Syndrome (Trisomy 21) and Trisomy 18, as well as open neural tube defects including spina bifida. Ultrasound examination is performed between 11 weeks and 13 weeks gestational age. Blood tests are drawn after the ultrasound and again later in the between 15 and 21 weeks gestational age. Please let your physician know if you are interested in this testing. It will require an appointment with our medical laboratory technician. This is not an ultrasound performed by a physician in our office during a routine visit. SIGNS AND SYMPTOMS OF LABOR 1. Contractions every 10 minutes or more often 2. Clear, pink, or brownish fluid (water) leaking from vagina 3. Feeling that baby is pushing down, pressure 4. Low, dull backache 5. Cramps that feel like a period 6. Cramps with or without diarrhea If you notice any of the above symptoms, contact our office at [phone] and ask to speak with a nurse. After hours, you can call doctors registry at [phone] OR call [facility] at [phone] and ask to have the doctor field control inspector paged. If you consider this an emergency, dial 9--1 or go to your nearest emergency department. NEED HELP? Are you dealing with a violent or abusive relationship? Are you a victim of rape or sexual assult? Call [facility] ([place]) 24 hour Crisis Hotline: 840.797.1427 or 533-213-3024. MANUAL Your Guide to a Healthy manual is now on-line. Visit [email or web address] to download your free copy documented in this encounter [facility] 10-02-2023 Telephone encounter Note Reviewed BG data- responded as follows: Good afternoon-I reviewed your BG data- fasting BG still a bit elevated. I would recommend that you do the following: continue Metformin ER 500 mg two tabs twice/day with meals. Increase NPH to 16 units a bedtime. For now continue Humalog 5 units prior to any "higher carb" meals (abelino with * as you are doing) Will review again next week- thanks! KB [facility] 10-02-2023 Miscellaneous Notes Reviewed BG data- responded as follows: Good afternoon-I reviewed your BG data- fasting BG still a bit elevated. I would recommend that you do the following: continue Metformin ER 500 mg two tabs twice/day with meals. Increase NPH to 16 units a bedtime. For now continue Humalog 5 units prior to any "higher carb" meals (abelino with * as you are doing) Will review again next week- thanks! KB documented in this encounter [facility] 09-26-2023 History of Present illness Narrative Referring Physician: Vasu Gaxiola APRN, CNP My final recommendations will be communicated back to the requesting physician by way of shared Medical record or letter via US mail. Reason for consultation: Follow up evaluation- type 2 diabetes antepartum. This Team Access Model visit is a virtual encounter. It required patient-provider interaction for the medical decision making as documented below. I have communicated my name and active licensure. The patient's identity and physical location were verified at the time of this visit. Either the patient or their legal branch service representative has been informed of the risks and benefits of -- and alternatives to -- treatment through a remote evaluation and consents to proceed with the evaluation remotely. HISTORY OF PRESENT ILLNESS; Ms. Avila is a 33 year old presenting at 7+ weeks gestation who is here for follow up regarding type 2 diabetes antepartum. Last visit here was 07/24/23. Pt with GDM in all three previous pregnancies. She was initially diagnosed with diabetes in 2016- after delivery of third child after post GTT. Required insulin during third (as well as glyburide) No known microvascular or macrovascular complications - states she follows with ophthalmology annually - saw within the last month, no . Her current regimen is as follows: Metformin ER 500 mg two tabs twice/day. Was taking Trulicity prior to the - but discontinued and has remained off . She has been checking her BG using Dexcom. Sensor average 179 +/- 48 mg/dL This continuous glucose monitoring (sensor) data can be found in the procedure note CGM Report Interpretation: 1. Nocturnal glucose control: Uncontrolled glucose NOT previously detected: Yes If yes: Hyperglycemia detected Notes: will start basal insulin 2. Post prandial glucose excursions: Uncontrolled glucose NOT previously detected: Yes If yes: Hyperglycemia detected Notes: prandial insulin to be started with "higher carb" meals. 3. Hypoglycemia incidence: Uncontrolled glucose NOT previously detected: No Notes: n/a 4. Other (e.g., exercise/activity): n/a Hypoglycemia frequency: n/a Hypoglycemia awareness: n/a Hyperglycemia Symptoms: denies blurry vision reports polyuria denies polydipsia reports nocturia denies rapid weight loss Sees OBGYN on 10/13. + nausea, no emesis. PAST MEDICAL HISTORY Diagnosis Date Anxiety state Atrial fibrillation (HCC) Cardiac arrest (HCC) With subsequent A. fib after initiation of anesthesia June 2016 with tubal, converted with diltiazem after 11 hours, she follows with cardiology Diabetes type 2, controlled (HCC) 2015 GERD (gastroesophageal reflux disease) History of depression Mixed hyperlipidemia Morbid obesity (HCC) Tobacco dependence PAST SURGICAL HISTORY Procedure Laterality Date CHOLECYSTECTOMY D&C, DIAG AND/OR THERAPEUTIC 04/16/2023 retained placenta after 16 week demise/PPROM delivery DILATION & CURETTAGE DX&/THER NONOBSTETRIC 2016 multiple procedures TONSILLECTOMY & ADENOIDECTOMY <AGE 10 FAMILY HISTORY Problem Relation Age of Onset Hypertension Mother No Known Problems Father No Known Problems Sister No Known Problems Brother Cancer Maternal Grandmother Sinus Diabetes Paternal Grandmother Heart Failure Paternal Grandmother Heart Failure Paternal Grandfather Social History Tobacco Use Smoking status: Every Day Packs/day: 0.50 Years: 20.00 Additional pack years: 0.00 Total pack years: 10.00 Types: Cigarettes Smokeless tobacco: Never Vaping Use Vaping Use: Never used Substance Use Topics Alcohol use: Not Currently Drug use: Never Current Outpatient Medications Medication Sig Dispense Refill metFORMIN ER (GLUCOPHAGE XR) 500 mg 24 hr tablet Take 2 tablets by mouth two times a day with meals. 360 tablet 3 aspirin, enteric coated (ASPIRIN, ENTERIC COATED) 81 mg EC tablet Take 1 tablet by mouth once daily. 90 tablet 3 ketotifen fumarate (ZADITOR) 0.025 % (0.035 %) ophthalmic solution Use 1 Drop in both eyes two times a day. As needed 5 mL 11 lidocaine (LIDODERM) 5 % Apply 1 Patch as directed every 24 hours. Remove old patch prior to placing new patch. Location: low back 30 Patch 2 loratadine (CLARITIN) 10 mg tablet Take 1 tablet by mouth once daily as needed. 90 tablet 1 albuterol HFA (PROVENTIL HFA, VENTOLIN HFA) 90 mcg/actuation inhaler Inhale 2 Puffs as instructed every 4 hours as needed for wheezing/shortness of breath. 1 Each 2 Ovtgptkz-Ph-Vaq-Fe-FA tab Take 1 tablet by mouth once daily. 30 tablet 5 sertraline (ZOLOFT) 100 mg tablet Take 1 tablet by mouth once daily. 90 tablet 1 blood sugar diagnostic (ONETOUCH VERIO TEST STRIPS) test strip Use as instructed 4 times daily (Patient taking differently: Use as instructed 4 times daily For back up use only due to use of Dexcom) 150 Strip 11 lancets (EpitiroTOUCH DELICA LANCETS) 30 gauge Use as instructed 4 times daily (Patient taking differently: Use as instructed 4 times daily For back up use only due to use of Dexcom) 150 Each 11 Blood-Glucose Meter (BLOOD GLUCOSE MONITORING) monitoring kit One touch. Use as instructed. Please use voucher Bin [id number]; N [facility]; Group [id number]; ID NOCHARGEMETR (Patient taking differently: One touch. Use as instructed. Please use voucher Bin [id number]; PCN [facility]; Group [id number]; ID NOCHARGEMETR For back up use only due to use of Dexcom) 1 Kit 0 Insulin [place], Disposable, (PEN NEEDLE) 32 gauge x 5/32" Use to inject insulin up to 4 times per day. (Patient taking differently: Use to inject insulin up to 4 times per day. For back up use only due to use of Dexcom) 100 Each 5 Blood-Glucose Sensor (DEXCOM G7 SENSOR) stephanie Insert 1 sensor on the back of arm. Replace every 10 days as directed. 3 Each 5 ondansetron orally disintegrating (ZOFRAN ODT) 4 mg disintegrating tablet Take 1 tablet by mouth every 6 hours as needed for nausea/vomiting. 10 tablet 0 Blood-Glucose Meter,Continuous (DEXCOM G7 HOME THEATRE TECHNICIAN) [facility] Use to test blood sugar as directed. 1 Each 0 alcohol swabs (ALCOHOL PADS) Apply 1 application to affected area once daily. 100 Each 2 blood sugar diagnostic (BLOOD GLUCOSE TEST) test strip Test blood sugar(s) 3 times daily. Dx: Type 2 DM - Controlled E11.9 Insulin: Yes (Patient taking differently: Test blood sugar(s) 3 times daily. Dx: Type 2 DM - Controlled E11.9 Insulin: Yes For back up use only due to use of Dexcom) 100 Strip 5 fluticasone (FLONASE) 50 mcg/actuation nasal spray Use 1 [place] in each nostril once daily. As needed No current facility-administered medications for this visit. Allergies As of Date: 09/26/2023 Allergen Noted Reaction CODEINE 10/02/2020 Other: See Comments JARDIANCE [EMPAGLIFLOZIN] 08/26/2021 Intolerance NUBAIN [NALBUPHINE] 10/02/2020 Vomiting OXYCODONE 03/22/2019 Vomiting PERCOCET [OXYCODONE-ACETAMINOPHEN]10/02/2020 Vomiting METFORMIN 03/11/2023 Diarrhea and GI Upset Fully Assessed 09/16/2023 REVIEW OF SYSTEMS: Skin: no rashes, pruritis or dry skin Eyes: no blurred or double vision or eye pain Cardiac: denies chest pain, heart palpitations or orthopnea PHYSICAL EXAM: No vitals as this was a virtual visit GENERAL: Alert, no distress, cooperative SKIN: Skin color, texture, turgor normal. No rashes or lesions. HEAD/SINUSES: No significant findings EYES: sclera non-icteric, EOMs intact. No lid lag or stare. ABDOMEN: gravid at 7 weeks. EXTREMITIES: Normal exam of the extremities NEURO: AAO x 3, no focal deficits. The remainder of the physical exam is noncontributory. DATA: All pertinent data reviewed prior to this visit IMPRESSION: Ms. Avila is a 33 year old female at 7+ weeks gestation here for follow up regarding type 2 diabetes antepartum RECOMMENDATIONS: 1. I again counseled Charmaine Avila regarding the importance of maintaining euglycemia during . She should continue to monitor carbohydrate intake, and walk after meals, if not contraindicated. 2. I recommend she check her blood glucose fasting, and 2 hour after each meal. Fasting blood glucose targets are between 60-90mg/dl, and 2 hour post prandial blood glucose concentration should be less than 120mg/dl. Regarding her blood glucose management, I recommend: 1) check your sugars fasting (60-90 mg/dL) and 2 hours post meal (less than 120 mg/dL) using Dexcom 2) forward me your blood glucose data weekly ([email or web address])- send each thursday and I will review in conjunction with your CGM data 3) continue Metformin ER 500 mg two tabs twice/day with meals 4) start insulin as follows: NPH 10 units a bedtime Humalog 5 units prior to any "higher carb" meals- means if you eat something that you think will increase your blood glucose- take the Humalog with that meal. Abelino with * on your log book if/when you take it so I can see if it is working or not. 5) see me in six weeks for f/u- virtual visit ok- my office will reach out to schedule this- 3. Ophthalmology: she has seen ophthalmology recently , no hx of DR. She will return to clinic in 6 weeks. I spent a total of 30 minutes on the date of the service which included preparing to see the patient, tsld-zl-uulp patient care, completing clinical documentation, obtaining and/or reviewing separately obtained history, performing a medically appropriate examination, counseling and educating the patient/family/caregiver, and ordering medications, tests, or procedures. Adeel Ramirez DO documented in this encounter [facility] 09-24-2023 Telephone encounter Note Spoke to patient and advised as below. She did not start writing her numbers down yet. She will start tomorrow. Dexcom report show last data 09/16/23 BG Logs and connect code for Dexcom sent to patient again. [facility] 09-24-2023 Miscellaneous Notes Spoke to patient and advised as below. She did not start writing her numbers down yet. She will start tomorrow. Dexcom report show last data 09/16/23 BG Logs and connect code for Dexcom sent to patient again. Please contact patient- she has appointment 09/25. Be sure she sends me her BG data prior to that visit- is she now using CGM? If so will need that prior to her thursday appointment as well. documented in this encounter [facility] 09-23-2023 Telephone encounter Note Please contact patient- she has appointment 09/25. Be sure she sends me her BG data prior to that visit- is she now using CGM? If so will need that prior to her thursday appointment as well. [facility] 09-18-2023 Telephone encounter Note MyChart msg was sent to patient asking for call back to this coordinator to schedule MFM consultation. [facility] 09-18-2023 Miscellaneous Notes MyChart msg was sent to patient asking for call back to this coordinator to schedule MFM consultation. documented in this encounter [facility] 09-18-2023 Telephone encounter Note Addressed previously. Miquel Mohr LPN [facility] 09-18-2023 Miscellaneous Notes Addressed previously. Miquel Mohr LPN documented in this encounter [facility] 09-17-2023 Telephone encounter Note 1st risk assessment form submitted September 17, 2023. GREGORY Szymanski, RN OB Clinical Navigator [phone] [facility] 09-17-2023 Miscellaneous Notes 1st risk assessment form submitted September 17, 2023. GREGORY Szymanski, RN OB Clinical Navigator [phone] documented in this encounter [facility] 09-16-2023 Vasu Vo APRN.TIE UP WORKER - 09/16/2023 9:44 AM EDT Images from the original note were not included. How SMOKING Affects Your and Your Baby During Smoking during affects you and your baby's health before, during and after your baby is born. The nicotine (the addictive substance in cigarettes), carbon monoxide and numerous other poisons you inhale from a cigarette are carried through your bloodstream and go directly to your baby. Smoking while will: Lower the amount of oxygen available to you and your growing baby Increase your baby's heart rate Increase the chances of miscarriage and stillbirth Increase the risk that your baby is born prematurely and/or born with low weight Increase your baby's risk of developing respiratory problems The more cigarettes you smoke per day, the greater your baby's chances of developing these and other health problems. There is no "safe" level of smoking for your baby's health. How does secondhand smoke affect me and my baby? Second-hand smoke (also called passive smoke or environmental tobacco smoke) is the combination of smoke from a burning cigarette and smoke exhaled by a smoker. The smoke that deng off the end of a cigarette or cigar contains more harmful substances ( tar, carbon monoxide, nicotine and others) than the smoke inhaled by the smoker. If you are regularly exposed to second-hand smoke, you increase your and your baby's risk of developing lung cancer, heart disease, emphysema, allergies, asthma and other health problems. Babies exposed to second-hand smoke may also develop reduced lung capacity and are at higher risk for sudden syndrome (SIDS). What happens if I keep smoking after my baby is born? If you continue to smoke after your baby is born, you increase his or her chance of developing certain illnesses and problems, such as: Frequent colds Bronchitis and pneumonia Asthma Chronic coughs Ear infections High blood pressure Learning and behavior problems later in childhood Why should I quit smoking? Smoking is the leading cause of preventable in the [place] By quitting you can: Prolong your life Lower your risk of heart disease Lower your risk of developing lung, throat, mouth, pancreatic and bladder cancer Lower your risk of developing breathing problems such as chronic obstructive pulmonary disease (COPD), asthma and emphysema Lower your risk of developing allergies Raise your energy level Improve your appearance; your skin will wrinkle less and look better, and your fingers and teeth will not be yellow Improve your sense of smell and taste Feel healthier overall, with improved self-esteem Save a lot of money (the average smoker spends $740 a year for cigarettes!) How can I quit smoking? There is no one way to quit smoking that works for everyone, since each person has different smoking habits. Here are some tips: Hide your matches, lighters, and ashtrays. Take a deep breath and hold it for five to ten seconds whenever you get the urge to smoke. Designate your home a non-smoking area. Ask people who smoke not to smoke around you. Drink less caffeinated beverages; caffeine may stimulate your urge to smoke. Also avoid alcohol, as it also may increase your urge to smoke and can be harmful to your baby. Change your habits connected with smoking. If you smoked while driving or when feeling stressed, try other activities to replace smoking. Keep mints or gum (preferably sugarless) on hand for those times when you get the urge to smoke. Stay active to keep your mind off smoking and help relieve tension: take a walk, exercise, read a book or try a new a hobby. Look for support from others. Join a support group or smoking cessation program, such as the [facility] Smoking Cessation Program. For more information, please call . Do not go places where many people are smoking such as bars or clubs, and smoking sections of restaurants. Should I use a nicotine replacement to help me quit? Nicotine gum and patches release nicotine into the bloodstream of the smoker who is trying to quit. Although these products can reduce withdrawal symptoms and decrease cravings in smokers who are trying to quit, nicotine is quite toxic and potentially harmful to the fetus (as well as to the who is ). Therefore, these and any other products containing nicotine are not always ecommended for the woman who is trying to quit smoking. They may be prescribed in indivdual cases. How will I feel when I quit? The benefits of not smoking start within days of quitting. After you quit, you and your baby's heart beat will return to normal, and your baby will be less likely to develop breathing problems. You may have symptoms of withdrawal because your body is used to nicotine, the addictive substance in cigarettes. You may crave cigarettes, be irritable, feel very hungry, cough often, get headaches or have difficulty concentrating. The withdrawal symptoms are only temporary. They are strongest when you first quit but will go away within 10 to 14 days. When withdrawal symptoms occur, stay in control. Think about your reasons for quitting. Remind yourself that these are signs that your body is healing and getting used to being without cigarettes. Remember that withdrawal symptoms are easier to treat than the major diseases that smoking can cause. Even after the withdrawal is over, expect periodic urges to smoke. However, these cravings are generally short-lived and will go away whether you smoke or not. Don't Smoke! If you smoke again (called a relapse) do not lose hope. Seventy-five percent of those who quit relapse. Most smokers quit three times before they are successful. If you relapse, don't give up! Plan ahead and think about what you will do next time you get the urge to smoke. (This information is provided by the [facility] and is not intended to replace the medical advice of your doctor or health care provider. Please consult your health care provider for advice about a specific medical condition. For additional written health information, please call the Cancer Answer Line at [facility] Thursday - Thursday 8-4:30 for assistance: [phone]. Or visit www.[facility]/health/) From [facility]'s Tobacco Cessation website: Our comprehensive smoking cessation program contains three main modules. These modules include the following: One-on-one weekly 30-minute counseling sessions with a respiratory therapist. Education about the various nicotine replacement therapies and medications and alternative methods used for cessation. Guidance and support; plus, we will contact your physician to obtain any required prescriptions for medications related to cessation. Insurance is accepted for this six-week program. Please check with your provider about whether your plan covers tobacco cessation programs. In the event your insurance provider does not cover your six-week smoking cessation program, we encourage you to contact us at your earliest convenience by calling . One of our friendly team members will be happy to help you with your financial plan. Contact [phone] for more information. [place] Tobacco Program Visit https://[place].quitlogix.org/en-[place]/ or call 0-789-XGPU-NOW Thank you for your interest in Women's Behavioral Health at [facility]. Your provider has referred you for counseling services. Below you will find a list of options. Psychotherapy Services at [facility] Call Behavioral Health Access Line at [phone] to schedule Individual psychotherapy In-person or virtual Wait time for first evaluation may be 12 or more weeks. Wait list spots may be available. Due to the high volume of patients this option is recommended if you are looking for short term acute symptom coping strategies. 6-544-8-JAEF1GOAK - [facility] Mental Health Hotline If you are in suicidal crisis, please call or text 8-043-395-TALK ( ) or visit the National Suicide Prevention Lifeline website. [facility].gov If you are in crisis, call 911 or go to your nearest Emergency Department Here are some links for wonderful Providers here in the community and surrounding areas. Do not hesitate to contact their offices, many are offering virtual visits during this time. Psychotherapy Services outside of [facility] Support International Online Provider Directory https://ChurchPairing/ - can assist in finding providers in your area that might be more extensive then the list below. [facility] [place], [place] [address] [place] [address] [facility] [address] [place] [address] [facility] [address] [place] [address] [facility] [address] [place] [id number] Jacquie Arce MD [address] [place], [place] [id number] [facility] [address], [address] [place] [address] [facility] [address] [place] [address] [facility] [place] [phone]/ [phone] [facility] [address] [facility] [phone] [facility] [place] [phone] Behavioral health services of [facility] [address] [place] [address]/ [place] [phone] Lina Contreras, ANDREY, CLC [facility] Workshops, telehealth and at home visits. [phone] Humanistic counseling center 20 locations [facility] [place], [place], [place], [place], [place], [place], [facility], [place], [place], [place], [place], [place], [place], [facility], [place], [place] ,[facility], [place], [place],[facility], [facility] [place], [place], [facility], [facility], [place] www.Matchpoint [phone] Psychotherapy resources outside of [facility] are listed below [facility] Space [facility]otherapy Web: https://www.NovaPlanner/ Support International Online Provider Directory https://ChurchPairing/ [facility] https://TaxiPixi/ Partners for Behavioral Health and Wellness Web: https://NonWoTecc Medical/ RagingWire for Effective Living Web: https://Amazing Photo Letters/ LifeStance Web: https://MFive Labs (Listn)/location/sta te/[place]/ [facility] Web: https://www.Nexus Research Intelligenceunm psychiatric [facility].org/ [facility] Web: https://Veezeon.Sividon Diagnostics/ Recovery Resources Mental health and substance abuse help Web: https://www.Dream Link Entertainments.Sividon Diagnostics & RESOURCES Support International Direct peer support and connection to professional resources Non-Emergency Helpline Phone: / Text: [phone] Web: https://www..net/ Online Provider Directory: https://ChurchPairing/ Online Support Meetings: https://www..net/get-help /cwj-soeozy-mwjskak-meetings/ [employer]ician [employer] Web: https://www.Celleration/ MotherToBaby Expert information on medication use during and Text: [phone] Web: https://[place].Sividon Diagnostics/ NATIONAL REGISTRY FOR PSYCHIATRIC MEDICATIONS Currently studying the safety of antidepressants, ADHD medications and atypical antipsychotics taken during TO PARTICIPATE CALL TOLL-FREE: Web: https://womensmentalhealth.org/rese arch/pregnancyregistry/ Support Groups: [facility] [place] [facility]- Follow on facebook Baby Bistro support group led by [facility] department Resilient Mamas - Support Group [facility].org The POEM support group [phone] Www.poemonline.org Follow on facebook - ZAHEER nicholson chapter Online support meetings PSI https://www..net/get-help /xwb-sepaxa-ogeodlk-meetings/ [facility] mommy and me virtual support group 11:30-1pm Support for mothers and new babies and toddlers Anderson childbirth education: Childbirth @cc.org or call [phone] CRISIS: CRISIS HOTLINE [phone], 911 or go to the nearest ER. [facility] [phone] / [facility] [phone] https://www.[facility].org Crisis text line text the word "HOME" to [id number] [facility] [address] [address] [facility] [address] www.MileIQ Teresa Cohn clinical counseling [address] [address] www.OnMyBlock [phone] Holding space psychotherapy Madeleine Spring EXTRACT PULLER CLIP ON SUNGLASSES INSPECTOR-S [address] [facility] www.NGenTec [phone]/ [place] [phone] They all offer virtual. All work with trauma Support groups Online support meetings PSI https://www..net/get-help /dwn-gpnrgs-jzibnxo-meetings/ Here are the support groups they offer: Support of parents of 1 to 4 years old children POEM ( Outreach and Encouragement for Moms) offers free support for mothers experiencing depression, anxiety, and other mood and anxiety disorders. Masks are recommended but not required. No pre-registration required. Babies in arms welcome. meetings now take place on the and Thursday of each month Location: [facility] [address], [place] [address] Room 122 (library room) 7-8:00 p.m. When you enter the alevism parking lot off of [address] , the entrance door closest to our meeting room is on the front of the building toward the right. For those who are more comfortable with a virtual platform, PO offers online support group options several days of the week. To register for an online group or to find out more about POEM, website at: https://aoflo.org/get-help/[facility] hayes hospitaldl-ubaagk-szwcjh/poem-services/ offer a confidential helpline: private Facebook group is called ZAHEER - Chris Corona Here are the groups they offer: Traumatic childbirth resources: Http://Nurep Inc..org/ https://www.JavelinalejandroFastmobile .LawKick/ Name Location (s) Phone # (s) Services Website Holding Space Psychotherapy [address] [facility] [phone]; [address] [phone] In-Person GROUPS INDIVIDUAL THERAPY MATERNAL- MENTAL HEALTH MEDICATION MANAGEMENT PLAY AND ART THERAPY TELETHERAPY https://www.NovaPlanner/ser vices/ [facility]? [address] [address] ? [address], [address] [place], [place] [address] ? [place] [address] [address]? Grief Support Groups Individual Grief Counseling Spiritual Care Memorial Events https://[email or web address].[facility] .org/grief-services [facility] [address] [place], [place] [address]; ; Email: [email or web address] Women's Mental Health; Couples Counseling; Trauma (EMDR); Stress Management; Mood and Anxiety Related Disorders- and much more https://www.NuPotential/ LifeStance Numerous as they have contract providers: access website to find specific providers near you Counseling including CBT and EMDR as well as many more modalities; Medication Management; Telehealth and In-Person https://Mealnut.LawKick/ [facility] [address] [place], [place] [address]; [phone] Personal, Family and Group Therapy; Psychological Testing and Diagnosis; Medication Management; Life and Career Coaching; Psychoanalysis; Literacy Testing; Yoga and Meditation https://Teralytics.LawKick/ Fit [facility] [address] [facility] [address], [place] [address] [address] ; [address] [facility], [address] [place] [address]; Office # for both sites: Individual and Couples Counseling https://www.Visualnet.LawKick/genia holley.html OCD & Anxiety [facility] [address] [facility], [address], [place] [address]; Specialize in Cognitive-Behavioral Therapy (CBT) for the treatment of anxiety disorders across the lifespan. TELEHEALTH ONLY. https://ocdandanxietycenteroj.w. [facility] Wasabi Productions/faqs [facility] [address] [place], [address] [place] [address] [place], [address] [place] [address] [facility] [place] [address] [place] [address] [place], [address], [address] [place], [address] [place] [address] [place], [address] Transportation Services To minimize patient barriers, [facility] provides transportation services to patients who qualify. If you are unable to get to your appointment at any of our facilities, please let us know. Need help now? Stop by one of our walk-in clinics to establish behavioral health care. Counseling Indvidual, Group, Couples and Family Counseling and EMDR. Medication Management Case Management benefits applications housing assistance Substance abuse treatment Medication assisted treatment https://www.signaturehealthinc.org/ mental-health/ [facility] OFFICE AT [facility] [address] [place] [address] [facility] OFFICE [address] [place] [address] [facility] OFFICE [address] [place] [address] [facility] OFFICE (at [facility]) [address] [place] [address] [facility] EXCHANGE PROGRAM & HIV SCREENING [address] [place] [address] [facility] EXCHANGE PROGRAM [address] [place] [address] Behavioral Health Urgent Care: [facility] Sites Counseling Indvidual and Group Medication Management Case Management benefits applications housing assistance Substance abuse treatment Medication assisted treatment Employment Services/ Job Training https://thepr2go.com.org/ Recovery Resources [address] [place], [place] [address]: P: [phone] [address] [facility], [address], [place] [address] P: [phone] Our services include: Addiction Mental Health Treatment Assessment Psychiatry Medical Care Employment Housing Drug and Alcohol Prevention HIV/AIDS Prevention https://www.recres.org/ [facility] [place] [address] [facility] [address] [place] [address] [place] [address] [place] [address] [address] [place], [place] [address] [place] [address] [place] [address] [place] [address] [facility] [address] [place] [address] [place] [address] [address] [address] TMS Therapy/ Counseling Psychocological Testing for ADHD Medication Management In-Person/ Telemedicine https://www.[email or web address].com/jesus ts-depression Memory & Psychological services [address], [place] [address] Neuropsychological Testing For ADHD https://www.memoryandpsych.com/ [facility] - Main Office [address] [place] [address] [id number] Providing hhpe-qg-htla and telehealth services. Adult Case Management Community Education and Prevention Employment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 needed. Keep May appointment as is. Prescription instructions reviewed with patient as applicable. Potential red flag symptoms discussed with the patient. Reviewed appropriate action plan to take if red flag symptoms occur. Patient agreeable to treatment plan. During this patient visit I have spent approximately 20 minutes in counseling regarding coordinating care. Irasema Georges APRN.KATHI documented in this encounter [facility] 08-05-2023 History of Present illness Narrative This note was created using [email or web address]. Subjective Charmaine Cochran is a 33 year old female. Patient presents with: Follow Up: 3 month follow up SUBJECTIVE: Charmaine Cochran is a 33 year old year old lady here today for 3 month follow up appointment for review of medical conditions. 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 Prior one only 3 days and next was just light brown. Pain left side abdomen similar to when was (but was right sided). Urine test was negative before last period that ended on Thursday. Doing well from DM standpoint. PAST MEDICAL HISTORY Diagnosis Date Anxiety state Atrial fibrillation ([facility]) Cardiac arrest ([facility]) With subsequent A. fib after initiation of anesthesia June 2016 with tubal, converted with diltiazem after 11 hours, she follows with cardiology Diabetes type 2, controlled ([facility]) 2015 GERD (gastroesophageal reflux disease) History of depression Mixed hyperlipidemia Morbid obesity ([facility]) Tobacco dependence Current Outpatient Medications Medication Sig metFORMIN ER (GLUCOPHAGE XR) 500 mg 24 hr tablet Take 2 tablets by mouth two times a day with meals. aspirin, enteric coated (ASPIRIN, ENTERIC COATED) 81 mg EC tablet Take 1 tablet by mouth once daily. ketotifen fumarate (ZADITOR) 0.025 % (0.035 %) ophthalmic solution Use 1 Drop in both eyes two times a day. As needed lidocaine (LIDODERM) 5 % Apply 1 Patch as directed every 24 hours. Remove old patch prior to placing new patch. Location: low back loratadine (CLARITIN) 10 mg tablet Take 1 tablet by mouth once daily as needed. albuterol HFA (PROVENTIL HFA, VENTOLIN HFA) 90 mcg/actuation inhaler Inhale 2 Puffs as instructed every 4 hours as needed for wheezing/shortness of breath. Zbsuabdv-Bf-Blj-Fe-FA tab Take 1 tablet by mouth once daily. dulaglutide (TRULICITY) 0.75 mg/0.5 mL pen injector Inject 0.75 mg subcutaneously one time a week. sertraline (ZOLOFT) 100 mg tablet Take 1 tablet by mouth once daily. simvastatin (ZOCOR) 40 mg tablet Take 1 tablet by mouth daily at bedtime. insulin NPH (HUMULIN N NPH INSULIN KWIKPEN) 100 unit/mL (3 mL) injection pen 22 units at bedtime insulin lispro (HUMALOG KWIKPEN) 100 unit/mL 7 units prior to breakfast 10 units prior to lunch and dinner + scale . blood sugar diagnostic (ONETOUCH VERIO TEST STRIPS) test strip Use as instructed 4 times daily lancets (ONETOUCH DELICA LANCETS) 30 gauge Use as instructed 4 times daily Blood-Glucose Meter (BLOOD GLUCOSE MONITORING) monitoring kit One touch. Use as instructed. Please use voucher Bin [id number]; [facility]; Group [id number]; ID NOCHARGEM[employer]R Insulin [place], Disposable, (PEN NEEDLE) 32 gauge x 5/32" Use to inject insulin up to 4 times per day. PNV no.[id number]-[id number] ( GUMMIES) 400 mcg-35 mg- 25 mg-5 mg chew Take by mouth. Blood-Glucose Sensor (DEXCOM G7 SENSOR) stephanie Insert 1 sensor on the back of arm. Replace every 10 days as directed. ondansetron orally disintegrating (ZOFRAN ODT) 4 mg disintegrating tablet Take 1 tablet by mouth every 6 hours as needed for nausea/vomiting. Blood-Glucose Meter,Continuous (DEXCOM G7 HOME THEATRE TECHNICIAN) [facility] [place] Use to test blood sugar as directed. alcohol swabs (ALCOHOL PADS) Apply 1 application to affected area once daily. blood sugar diagnostic (BLOOD GLUCOSE TEST) test strip Test blood sugar(s) 3 times daily. Dx: Type 2 DM - Controlled E11.9 Insulin: Yes fluticasone (FLONASE) 50 mcg/actuation nasal spray Use 1 [place] in each nostril once daily. As needed No current facility-administered medications for this visit. Review of Systems Objective BP (P) 118/81 (BP Site: Left Arm, BP Position: Sitting, BP Cuff Size: Large Adult) Resp (P) 16 Wt (P) 99.8 kg (220 lb) LMP 12/21/2022 (Approximate) BMI (P) 33.45 kg/m Physical Exam Constitutional: Appearance: Normal appearance. HENT: Head: Normocephalic. Eyes: Conjunctiva/sclera: Conjunctivae normal. Cardiovascular: Rate and Rhythm: Normal rate and regular rhythm. Heart sounds: Normal heart sounds. Pulmonary: Effort: Pulmonary effort is normal. Breath sounds: Normal breath sounds. Abdominal: Skin: General: Skin is warm and dry. Neurological: General: No focal deficit present. Mental Status: She is alert and oriented to person, place, and time. Psychiatric: Mood and Affect: Mood normal. Behavior: Behavior normal. Thought Content: Thought content normal. Judgment: Judgment normal. Assessment and Plan Encounter Diagnosis ICD-10-CM 1. LLQ pain R10.32 HCG QUANTITATIVE Upper LLQ area with tenderness 2. Irregular menses N92.6 HCG QUANTITATIVE Discussed management. 3. Class 1 obesity due to excess calories with body mass index (BMI) of 34.0 to 34.9 in adult, unspecified whether serious comorbidity present E66.09 Z68.34 Continue present efforts at healthy diet and stayong active Above issues addressed with patient. Patient involved in shared decision making for management of medical issues. History and medications reviewed. Epic updated as needed Refills and/or prescriptions taken care of and meds adjusted as indicated after reviewed history, exam and labs. Health Maintenance reviewed. Updated record and/or ordered tests as recorded. Encouraged on efforts at healthy diet and regular exercise and adequate sleep. Check lab as ordered above. Further evaluation and treatment as indicated. Junior Jeong MD documented in this encounter [facility] 07-24-2023 History of Present illness Narrative Spoke with patient, scheduled 02/17/2024 @ 3:00 pm (virtual appointment) Reason for Consultation: f/u type 2 diabetes mellitus. Referring Physician: Richie Doll MD My final recommendations will be communicated back to the requesting physician by way of shared Medical record or letter via US mail. This Team Access Model visit is a virtual encounter. It required patient-provider interaction for the medical decision making as documented below. I have communicated my name and active licensure. The patient's identity and physical location were verified at the time of this visit. Either the patient or their legal branch service representative has been informed of the risks and benefits of -- and alternatives to -- treatment through a remote evaluation and consents to proceed with the evaluation remotely. HISTORY OF PRESENT ILLNESS Ms. Cochran is a 33 year old female here as a f/u regarding type 2 diabetes mellitus. Her last visit with ia was 03/17/23- she was in first trimester of a at that time, which unfortunately ended in miscarriage. Pt with GDM in all three previous pregnancies. She was initially diagnosed with diabetes in 2016- after delivery of third child after post GTT. Required insulin during third (as well as glyburide) No known microvascular or macrovascular complications - states she follows with ophthalmology annually - saw within the last month, kenna FARMER. Her current regimen is as follows: Metformin ER 500 mg two tabs twice/day. Was taking Trulicity prior to the - but discontinued and has remained off of this as she is considering a future HbA1c prior to this visit was 6.6% She has a family history of diabetes mellitus including her paternal grandmother . Her prepregnancy weight was 210 lbs and her current weight is 225 lbs. Known complications include: None Exacerbating factors include: none She is checking her blood glucose 4 times daily. Was using Dexcom- but recently stopped due to rash at site Hypoglycemia frequency: none Hypoglycemia awareness n/a Regarding symptoms of hyperglycemia, she is not experiencing any symptoms such as polyuria, polydipsia, nocturia or rapid weight loss or blurry vision, Overall, the patient has no acute complaints at this time. PAST MEDICAL HISTORY Diagnosis Date Anxiety state Atrial fibrillation ([facility]) Cardiac arrest ([facility]) With subsequent A. fib after initiation of anesthesia June 2016 with tubal, converted with diltiazem after 11 hours, she follows with cardiology Diabetes type 2, controlled ([facility]) 2015 GERD (gastroesophageal reflux disease) History of depression Mixed hyperlipidemia Morbid obesity ([facility]) Tobacco dependence PAST SURGICAL HISTORY Procedure Laterality Date CHOLECYSTECTOMY D&C, DIAG AND/OR THERAPEUTIC 04/16/2023 retained placenta after 16 week demise/PPROM delivery DILATION & CURETTAGE DX&/THER NONOBSTETRIC 2016 multiple procedures TONSILLECTOMY & ADENOIDECTOMY <AGE 10 FAMILY HISTORY Problem Relation Age of Onset Hypertension Mother No Known Problems Father No Known Problems Sister No Known Problems Brother Cancer Maternal Grandmother Sinus Diabetes Paternal Grandmother Heart Failure Paternal Grandmother Heart Failure Paternal Grandfather Social History Tobacco Use Smoking status: Every Day Packs/day: 0.50 Years: 20.00 Additional pack years: 0.00 Total pack years: 10.00 Types: Cigarettes Smokeless tobacco: Never Vaping Use Vaping Use: Never used Substance Use Topics Alcohol use: Not Currently Drug use: Never Allergies As of Date: 07/24/2023 Allergen Noted Reaction CODEINE 10/02/2020 Other: See Comments JARDIANCE [EMPAGLIFLOZIN] 08/26/2021 Intolerance NUBAIN [NALBUPHINE] 10/02/2020 Vomiting OXYCODONE 03/22/2019 Vomiting PERCOCET [OXYCODONE-ACETAMINOPHEN]10/02/2020 Vomiting METFORMIN 03/11/2023 Diarrhea and GI Upset Fully Assessed 04/14/2023 Current Outpatient Medications Medication Sig Dispense Refill metFORMIN ER (GLUCOPHAGE XR) 500 mg 24 hr tablet Take 2 tablets by mouth two times a day with meals. 360 tablet 3 aspirin, enteric coated (ASPIRIN, ENTERIC COATED) 81 mg EC tablet Take 1 tablet by mouth once daily. 90 tablet 3 ketotifen fumarate (ZADITOR) 0.025 % (0.035 %) ophthalmic solution Use 1 Drop in both eyes two times a day. As needed 5 mL 11 lidocaine (LIDODERM) 5 % Apply 1 Patch as directed every 24 hours. Remove old patch prior to placing new patch. Location: low back 30 Patch 2 loratadine (CLARITIN) 10 mg tablet Take 1 tablet by mouth once daily as needed. 90 tablet 1 albuterol HFA (PROVENTIL HFA, VENTOLIN HFA) 90 mcg/actuation inhaler Inhale 2 Puffs as instructed every 4 hours as needed for wheezing/shortness of breath. 1 Each 2 Mpgvokvf-Si-Zqh-Fe-FA tab Take 1 tablet by mouth once daily. 30 tablet 5 dulaglutide (TRULICITY) 0.75 mg/0.5 mL pen injector Inject 0.75 mg subcutaneously one time a week. 4 Each 11 sertraline (ZOLOFT) 100 mg tablet Take 1 tablet by mouth once daily. 90 tablet 1 simvastatin (ZOCOR) 40 mg tablet Take 1 tablet by mouth daily at bedtime. 90 tablet 3 insulin NPH (HUMULIN N NPH INSULIN KWIKPEN) 100 unit/mL (3 mL) injection pen 22 units at bedtime 5 Each 11 insulin lispro (HUMALOG KWIKPEN) 100 unit/mL 7 units prior to breakfast 10 units prior to lunch and dinner + scale . 5 Each 11 blood sugar diagnostic (ONETOUCH VERIO TEST STRIPS) test strip Use as instructed 4 times daily 150 Strip 11 lancets (ONETOUCH DELICA LANCETS) 30 gauge Use as instructed 4 times daily 150 Each 11 Blood-Glucose Meter (BLOOD GLUCOSE MONITORING) monitoring kit One touch. Use as instructed. Please use voucher Bin [id number]; [facility]; Group [id number]; ID NOCHARGEMETR 1 Kit 0 Insulin [place], Disposable, (PEN NEEDLE) 32 gauge x 5/32" Use to inject insulin up to 4 times per day. 100 Each 5 PNV no.[id number] ( GUMMIES) 400 mcg-35 mg- 25 mg-5 mg chew Take by mouth. Blood-Glucose Sensor (DEXCOM G7 SENSOR) stephanie Insert 1 sensor on the back of arm. Replace every 10 days as directed. 3 Each 5 ondansetron orally disintegrating (ZOFRAN ODT) 4 mg disintegrating tablet Take 1 tablet by mouth every 6 hours as needed for nausea/vomiting. 10 tablet 0 Blood-Glucose Meter,Continuous (DEXCOM G7 HOME THEATRE TECHNICIAN) [facility] [place] Use to test blood sugar as directed. 1 Each 0 alcohol swabs (ALCOHOL PADS) Apply 1 application to affected area once daily. 100 Each 2 blood sugar diagnostic (BLOOD GLUCOSE TEST) test strip Test blood sugar(s) 3 times daily. Dx: Type 2 DM - Controlled E11.9 Insulin: Yes 100 Strip 5 fluticasone (FLONASE) 50 mcg/actuation nasal spray Use 1 [place] in each nostril once daily. As needed No current facility-administered medications for this visit. REVIEW OF SYSTEMS General: no fever, chills or acute changes in weight in the last 6 months Skin: no rashes, pruritis or dry skin Cardiac: denies chest pain, heart palpitations or orthopnea Pulmonary: denies wheezing, productive cough or exertional dyspnea PHYSICAL EXAMINATION No vitals as this was a virtual visit. \\ GENERAL: Alert, no distress, cooperative SKIN: Skin color, texture, turgor normal. No rashes or lesions. HEAD/SINUSES: No significant findings EYES: sclera non-icteric, EOMS intact. No lid lag or stare. ABDOMEN: Normal abdominal exam EXTREMITIES: Normal exam of the extremities NEURO: AAO x 3, no focal deficits. The remainder of the physical exam is noncontributory. DATA Component Latest Ref Rng & Units 11/29/2021 08/30/2022 03/11/2023 07/14/2023 Hemoglobin A1C 4.3 - 5.6 % 6.7 (H) 6.6 (H) 7.5 (H) 6.6 (H) Estimated Average Glucose mg/dL 146 143 169 143 Component Latest Ref Rng & Units 07/14/2023 Protein, Total 6.3 - 8.0 g/dL 6.9 Albumin 3.9 - 4.9 g/dL 4.3 Calcium 8.5 - 10.2 mg/dL 9.2 Bilirubin, Total 0.2 - 1.3 mg/dL 0.2 Alkaline Phosphatase 34 - 123 U/L 94 AST 13 - 35 U/L 27 ALT 7 - 38 U/L 30 Glucose 74 - 99 mg/dL 165 (H) BUN 7 - 21 mg/dL 12 Creatinine 0.58 - 0.96 mg/dL 0.56 (L) Sodium 136 - 144 mmol/L 141 Potassium 3.7 - 5.1 mmol/L 4.0 Chloride 97 - 105 mmol/L 106 (H) CO2 22 - 30 mmol/L 23 Anion Gap 9 - 18 mmol/L 12 eGFR >=60 mL/min/1.73m 122 Cholesterol, Total <200 mg/dL 194 Triglyceride <150 mg/dL 158 (H) HDL Cholesterol >39 mg/dL 41 Non HDL Cholesterol <130 mg/dL 153 (H) Fasting Time hrs 9 VLDL Cholesterol <30 mg/dL 32 (H) TC:HDL Ratio <5.10 4.73 LDL Cholesterol <100 mg/dL 121 (H) LDL:HDL Ratio <2.54 2.95 (H) Creatinine, Ur Random (UCRR) 20.0 - 300.0 mg/dL 127.4 Albumin, Urine Random mg/L <12.0 Albumin/Creat Ratio <30 mg/g <9 Hemoglobin A1C 4.3 - 5.6 % 6.6 (H) Estimated Average Glucose mg/dL 143 TSH 0.270 - 4.200 mIU/L 2.070 IMPRESSION: Ms. Cochran is a 33 year old female here for f/u- type 2 diabetes mellitus. RECOMMENDATIONS: 1. Glycemic control: Target HbA1C is less than 7.0% per ADA guidelines. This patient is at this target on current regimen, without excessive hypoglycemia. I advised her as follows: 1) check BG as you are doing (Dexcom) 2) for now- continue your current regimen- Metformin ER 500 mg two tabs twice/day 3) contact me geeta if/when occurs- as you will need to be followed here closely 4) see me in six months- fasting blood work prior. The patient was reminded to check her blood glucose as she is doing, and to record the data in a logbook. She was advised to bring their logbook to each office visit. I recommended at least 150 minutes per week of moderate physical activity, such as walking and to reduce carbohydrates and overall caloric intake. 2. Hypertension/BP control: BP goal for patients with diabetes is 130/80. 3. Lipids: Target LDL cholesterol in patients with diabetes is less than 100, less than 70 if patient has overt CVD. Several studies have shown cardiovascular benefits of statin therapy in all patients with diabetes over age 40 with at least 1 CVD risk factor. LDL a bit elevated, however statin not indicated as she is considering a . 4. Antiplatelet therapy: Low dose antiplatelet therapy is recommended for patients with diabetes at increased cardiovascular risk. This includes most men over age 50 and most women over age 60. 5. Nephropathy screening: Annual measurement of urine albumin excretion is recommended in patients with diabetes. This patient does not have microalbuminuria and is not on HUBER-I or ARB therapy. 6. Ophthalmology: Annual dilated eye exams are recommended for patients with type 1 and type 2 diabetes. This patient is up to date with their annual eye exam and has no history of retinopathy. The patient was asked to follow up with me in six months- sooner as indicated. I spent a total of 30 minutes on the date of the service which included preparing to see the patient, [id number] patient care, completing clinical documentation, obtaining and/or reviewing separately obtained history, performing a medically appropriate examination, counseling and educating the patient/family/caregiver, and ordering medications, tests, or procedures. Adeel Ramirez DO documented in this encounter [facility] 07-23-2023 History of Present illness Narrative Virtual Visit Present: patient I'm Esther Payne, DNP, MOVIE PROJECTIONIST, TIE UP WORKER, I'm a licensed nurse practitioner. I want to confirm your location in [place]. Virtual visits are a convenient way for us to meet for the first time, but there are some situations in which an in-person evaluation may be required at a later time. I want to check in to confirm your consent to be seen virtually today. I have communicated my name and active licensure. The patient's identity and physical location were verified at the time of this visit. Either the patient or their legal branch service representative has been informed of the risks and benefits of -- and alternatives to -- treatment through a remote evaluation and consents to proceed with the evaluation remotely. 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 She was referred by Junior Jeong MD (Internal Medicine) [address] [facility] [address]. This consultation was shared with the referral source via the [facility] electronic medical record. The patient understanding of the reason for referral is "to get on track with feeling better." Chief complaints: low back Constant low back pain with occasional bilateral posterior leg pain L > R. Aggravating factors: movement, changing position Alleviating factors: not moving, lidocaine patches decrease it slightly Current pain level is 6/10. Pain varies from 3-10/10 Present Illness: PMH includes chronic low back pain with sciatica, diabetes type 2, medically induced afib, PCOS, obesity, GERD, exercise induced asthma, tension headaches, anxiety, depression Back pain started in 2006 with her first , it got worse following her second . Both babies were 9# and put pressure on her sciatic nerve. Pain hss not resolved. No spine surgeries. 01/06/22 XR LUMBAR GENERAL 3V AP/LAT/L5-S1: IMPRESSION: Lumbar spine degenerative changes with L5-S1 disc space narrowing. Previous pain treatments: physical therapy, medications, chiropractic manipulation, epidural steroid injections Medication Tried: Membrane stabilizers: denied NSAID's: ibuprofen Muscle relaxants: Flexeril, Zanaflex Opiates: tramadol, hydrocodone Benzodiazepines: denied Antidepressants: Zoloft, Effexor Topicals: lidocaine, Biofreeze, Icy Hot Other: denied Current Medications: Current Outpatient Medications Medication Sig metFORMIN ER (GLUCOPHAGE XR) 500 mg 24 hr tablet Take 2 tablets by mouth two times a day with meals. aspirin, enteric coated (ASPIRIN, ENTERIC COATED) 81 mg EC tablet Take 1 tablet by mouth once daily. ketotifen fumarate (ZADITOR) 0.025 % (0.035 %) ophthalmic solution Use 1 Drop in both eyes two times a day. As needed lidocaine (LIDODERM) 5 % Apply 1 Patch as directed every 24 hours. Remove old patch prior to placing new patch. Location: low back loratadine (CLARITIN) 10 mg tablet Take 1 tablet by mouth once daily as needed. albuterol HFA (PROVENTIL HFA, VENTOLIN HFA) 90 mcg/actuation inhaler Inhale 2 Puffs as instructed every 4 hours as needed for wheezing/shortness of breath. Pxjlfdty-Pg-Kxg-Fe-FA tab Take 1 tablet by mouth once daily. dulaglutide (TRULICITY) 0.75 mg/0.5 mL pen injector Inject 0.75 mg subcutaneously one time a week. sertraline (ZOLOFT) 100 mg tablet Take 1 tablet by mouth once daily. simvastatin (ZOCOR) 40 mg tablet Take 1 tablet by mouth daily at bedtime. insulin NPH (HUMULIN N NPH INSULIN KWIKPEN) 100 unit/mL (3 mL) injection pen 22 units at bedtime insulin lispro (HUMALOG KWIKPEN) 100 unit/mL 7 units prior to breakfast 10 units prior to lunch and dinner + scale . blood sugar diagnostic (ONETOUCH VERIO TEST STRIPS) test strip Use as instructed 4 times daily lancets (ONETOUCH DELICA LANCETS) 30 gauge Use as instructed 4 times daily Blood-Glucose Meter (BLOOD GLUCOSE MONITORING) monitoring kit One touch. Use as instructed. Please use voucher Bin [id number]; N [facility]; Group [id number]; ID NOCHARGEMETR Insulin [place], Disposable, (PEN NEEDLE) 32 gauge x 5/32" Use to inject insulin up to 4 times per day. PNV no.[id number]-[id number] ( GUMMIES) 400 mcg-35 mg- 25 mg-5 mg chew Take by mouth. Blood-Glucose Sensor (DEXCOM G7 SENSOR) stephanie Insert 1 sensor on the back of arm. Replace every 10 days as directed. ondansetron orally disintegrating (ZOFRAN ODT) 4 mg disintegrating tablet Take 1 tablet by mouth every 6 hours as needed for nausea/vomiting. Blood-Glucose Meter,Continuous (DEXCOM G7 HOME THEATRE TECHNICIAN) misc Use to test blood sugar as directed. alcohol swabs (ALCOHOL PADS) Apply 1 application to affected area once daily. blood sugar diagnostic (BLOOD GLUCOSE TEST) test strip Test blood sugar(s) 3 times daily. Dx: Type 2 DM - Controlled E11.9 Insulin: Yes fluticasone (FLONASE) 50 mcg/actuation nasal spray Use 1 [place] in each nostril once daily. As needed No current facility-administered medications for this visit. PDMP website checked and validated. All prescriptions have been APPROPRIATELY filled. No suspicious activity was identified. 07/23/2023 by Esther Payne APRN.TIE UP WORKER, DNP Functional Limitations: The patient works full-time without missing work. When she gets home from work and on days off she's resting. Emotional Symptoms include anxiety and irritability. The patient denies suicidal ideation. Sleep is fragmented by pain. Appetite and weight are stable. Non-medical stresses include 3 sons, ages 7, 13 and 15 who keep her on her toes. Family involvement: Boyfriend is supportive Financial Status: Disability income and personal injury litigation are denied. It was explained to patient that our department does not complete disability claim paperwork with the exception of FMLA paperwork while undergoing treatment in the Chronic Pain Neuro-Rehabilitation Program or during the week of ketamine infusions. Patient-Entered Data: Pain Recovery Scores 01/04/2022 8:07 PM 01/04/2022 8:06 PM LBP over last 6 months - Every day or nearly every day in the past 6 months Ongoing back pain problem - More than 5 years START back screen total score 5 - START back screen distress score 2 - START back screen risk score 3 [Medium risk for prolonged disability] - Oswestry disability index score - - PCS rumination subscore - - PCS magnification subscore - - PCS helplessness subscore - - PCS total score - - PHQ-9 02/01/2023 08/10/2022 05/04/2022 Score 5 3 10 DAVI - 7 SCORES 02/01/2023 DAVI-7 Score 12 PROMIS Global Health - (T-Scores - the mean of general population = 50. Five points is a clinically meaningful difference.) 05/05/2023 03/15/2023 11/14/2022 Physical T-Score 44.9 44.9 42.3 Mental T-Score 50.8 50.8 48.3 No flowsheet data found. Allergies: Codeine, Jardiance [Empagliflozin], Nubain [Nalbuphine], Oxycodone, Percocet [Oxycodone-Acetaminophen], and Metformin PAST MEDICAL HISTORY Diagnosis Date Anxiety state Atrial fibrillation (HCC) Cardiac arrest (HCC) With subsequent A. fib after initiation of anesthesia June 2016 with tubal, converted with diltiazem after 11 hours, she follows with cardiology Diabetes type 2, controlled ([facility]) 2015 GERD (gastroesophageal reflux disease) History of depression Mixed hyperlipidemia Morbid obesity ([facility]) Tobacco dependence PAST SURGICAL HISTORY Procedure Laterality Date CHOLECYSTECTOMY D&C, DIAG AND/OR THERAPEUTIC 04/16/2023 retained placenta after 16 week demise/PPROM delivery DILATION & CURETTAGE DX&/THER NONOBSTETRIC 2016 multiple procedures TONSILLECTOMY & ADENOIDECTOMY <AGE 10 Anesthesia: yes Schizophrenia: denied : she is trying to get CHF: denied Uncontrolled HTN: denied Recent NM: yes Arrythmias: denied Afib: yes Hyperthyroid: denied Aortic Stenosis: denied Liver Failure: denied Increased ICP: denied Cystitis: denied Seizure disorder: denied Psychiatric illness: Previous diagnoses: Depression and anxiety since 2009 after the of her second son which has continued. Out-Patient Therapy: She was under the counselor who recently discharged the patient from care. Psychiatric hospital admissions: Denied Suicide attempts: Denied Self-mutilation: Denied Eating disorder: Denied Medications tried: Zoloft Substance use: Nicotine: Smokes 1 PPD with no desire to quit Alcohol: Never much of a drinker Recreational drugs: Experimented with marijuana in college. She denies past/current use of other recreational drugs. Prescription medications: Denied FAMILY HISTORY: Chronic pain: Unknown Substance use disorders: Paternal h/o substance miquel Psychiatric illness: Paternal h/o depression and anxiety Developmental History: Patient was reared the youngest of 4 by both parents. Nurture was good. Discipline was good. Abuse, somatization, and serious disciplinary problems were denied. There were no major childhood traumatic events. Socialization was good. Educational level: high school graduate. She is currently working on her AD in criminal justice. 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 She has 3 sons. She's been with her boyfriend 1 year. Mental status: Patient was fully cooperative. Eye contact was good. Affect was euthymic. Speech was spontaneous and fluent without dysarthria, normal in rate, volume and articulation, and clear, coherent, and relevant. Thoughts were logical and relevant without delusional thinking or hallucinations. Somatic preoccupation was not present. Judgment and insight were good. Attention span and concentration appeared normal. She was oriented to time, place and person. PHYSICAL EXAMINATION: Deferred due to virtual visit Impressions: Chronic pain syndrome Chronic low back pain Treatment Plan: Patient is a 33 year old female with chronic low back pain. Since she is trying to get I would defer trials of medications for her chronic pain due to possible teratogenic effects on the fetus. Discussed participation in the [facility]habilitation [facility] (CPNP), the 2 hours educational TREK for Success Program and/or Back on TREK program. Consult with [facility] evaluation with pain psychology. Patient was given the number ([phone]) to call and schedule appointment. Discussed ketamine infusions for chronic pain. Patient declined. Discussed the importance of utilizing nonpharmacologic techniques to help manage pain and mood and promote self empowerment: - Mindfulness, meditation, distraction, concept of hurt vs harm - Low impact aerobic exercise, stretching, yoga, Cristofer Chi Return visit: Maintain contact by phone or MyChart. I have confirmed and edited as necessary, the PFSH and ROS obtained by others. I spent a total of 60 minutes on the date of the service which included preparing to see the patient, [id number] patient care, completing clinical documentation, obtaining and/or reviewing separately obtained history, counseling and educating the patient/family/caregiver, and ordering medications, tests, or procedures. Esther Payne APRN.INDERJIT ARMENTA documented in this encounter [facility] 06-30-2023 Miscellaneous Notes Spoke to Charmaine, she did not run out of medication, has been taking 2 tablets tiwce daily, has 1 week of medication left. Patient has been identified by name and date of : Yes Patient phones for refill(s): Requested Prescriptions Pending Prescriptions Disp Refills metFORMIN ER (GLUCOPHAGE XR) 500 mg 24 hr tablet 360 tablet 3 Sig: Take 2 tablets by mouth two times a day with meals. Date of last office visit in primary care: 02/03/2023 Date of next office visit in primary care: 08/05/2023 Please advise. Thank you. Meg Lawton LPN. documented in this encounter [facility] 04-30-2023 Miscellaneous Notes Pt wants to discontinue Trulicity prior to any future . This is reasonable, however it may come at the expense of inadequate glycemic control (and weight) going into a - I advised her as follows: Obinna Montano- that is fine if you want to stop the Trulicity. However I don't think just taking the metformin will achieve adequate glycemic control to go into a . You will likely need to start insulin. I would recommend that you do the following: check blood sugars fasting and PRIOR to each meal. these numbers should be 70-130 mg/dL stop Trulicity, continue Metformin ER 500 mg two tabs twice/day let me know how things are going with your blood sugar s in a week or two thanks Dr Ramirez documented in this encounter [facility] 04-28-2023 Miscellaneous Notes Patient has been identified by name and date of : Yes Requested Prescriptions Pending Prescriptions Disp Refills loratadine (CLARITIN) 10 mg tablet 90 tablet 1 Sig: Take 1 tablet by mouth once daily as needed. RX INSTRUCTIONS: Patient aware RX will be sent to pharmacy. No need to notify patient. Patient last office visit: 02/03/23 Patient next office visit: 05/05/23 Salma Bowers MA documented in this encounter [facility] 04-23-2023 History of Present illness Narrative EARLY VISIT Charmaine Cochran is a 33 year old here for 2 week visit. Delivery Summary: 16 week demise- PROM, Suction D&C for retained placenta ROS: General: Denies any fever or chills Hypertension Screening: Headache? Yes. tension Visual Changes? No Mood: normal Depression: denies symptoms of depression. Increased zoloft OB Depression and Anxiety Screening- This Encounter (since 04/22/2023) Over the past 2 weeks have you felt down, depressed, or hopeless? Negative Over the past two weeks, have you felt little interest or pleasure in doing things? Negative Feeling nervous, anxious or on edge 0-Not at all Not being able to stop or control worrying 0-Not al all Anxiety Pre-Screening Total (If >/= 3 additional questions will be reviewed) 0 Bladder: No dysuria, gross hematuria, urinary frequency, urinary urgency, or incontinence Bowel symptoms: Negative for abdominal discomfort, blood in stools or black stools and change in bowel habits Abdomen: N/A Bleeding: light flow Bottom and Perineum: No issues Sleep: no sleep concerns, [place] since delivery: Resumed Emotional support: Yes Exercise: N/A Other issues: None PHYSICAL EXAMINATION: BP 138/74 Wt 225 lb (102.1 kg) LMP 12/21/2022 (Approximate) No BMI 34.21 kg/m General: pleasant,female in no apparent distress, A&O x 3. Skin warm and intact. Breast: Deferred Abdomen: Deferred /Incision: N/A Pelvic: Deferred Bimanual: Deferred ASSESSMENT AND PLAN: 33 year old status post 16 week demise- vaginal delivery with retained placenta s/p Suction D&C normal course. Contraception plan: none, desires . Reinforced 6-week pelvic rest. Encouraged condom usage should patient deviate. Education: resources provided - see MA/RN note 4. Discussed medications and contraindications to - recommend discussion with primary care to review and change PNV ordered Rossy Thomas MD documented in this encounter [facility] 04-20-2023 Miscellaneous Notes [facility] calling for ICD 10 code for the trulicity Type 2 diabetes mellitus complicating , antepartum, first trimester - Primary O24.111 The O24.111 code given to pharmacist Please contact pt- can cancel 04/30 visit- reschedule July 23 any spot fasting blood work prior Thanks ALISHA Pt sent me message that she had a miscarriage. I advised her as follows: Obinna Montano- I'm really sorry to hear this. Regarding your diabetes management- I would recommend that you do the following: discontinue insulin take Metformin ER 500 mg two tabs twice/day restart Trulicity 0.75 mg weekly. Take for 4 weeks and let me know how you're doing- if you are tolerating at that point, will increase to 3.0 mg weekly. I'll send rx to your pharmacy now. Will cancel april visit- I will ask my office to reach out and schedule you in three months to see me- with fasting blood work prior thanks Dr Ramirez documented in this encounter [facility] 04-20-2023 History of Present illness Narrative Patient delivery in labor with P PROM at 16 weeks gestation on 04/16/2023. She delivered without difficulty. There were no heart tones detected by ultrasound after she was admitted. She delivered a 16-week fetus without cardiac activity or signs of life. The placenta did not deliver and she began to bleed moderately. Risk benefits and alternatives to D&C were discussed the patient was taken to the operating room for an ultrasound-guided D&C for retained placenta. Placenta was sent to pathology. Patient declined genetic testing or other testing of the fetus. She had an elevated white count and 1 elevated temperature. She was discharged home on doxycycline. She is to follow-up in the office in 1 to 2 weeks or as needed. Mimi Harden MD documented in this encounter [facility] 04-17-2023 Miscellaneous Notes Addended by: LEAH UNDERWOOD on: 04/17/2023 08:54 AM Modules accepted: Orders documented in this encounter [facility] 04-17-2023 History of Present illness Narrative Patient delivered via (16 week incomplete SAB) at [facility] on 04/16/23 per Mimi Harden MD. See OB Outcome note. Rosaline Scott RN documented in this encounter [facility] 04-14-2023 History of Present illness Narrative OBSTETRICS MATERNAL MEDICINE CONSULT SERVICE DATE: April 14, 2023 SERVICE TIME: 1100 REQUESTING PROVIDER: Dr. Doll, Communicated through EHR Subjective HISTORY OF THE PRESENT ILLNESS: The patient is a 33 year old female, , who is at 16w2d with an LEELA of 09/27/2023, by Last Menstrual Period dating method. Patient is here for consult. [facility]. Has T2 DM, Obesity. PPROM second trimester. HISTORY REVIEW PAST MEDICAL HISTORY Diagnosis Date Anxiety state Atrial fibrillation (HCC) Cardiac arrest (HCC) With subsequent A. fib after initiation of anesthesia June 2016 with tubal, converted with diltiazem after 11 hours, she follows with cardiology Diabetes type 2, controlled (HCC) 2016 GERD (gastroesophageal reflux disease) History of depression Mixed hyperlipidemia Morbid obesity (HCC) Tobacco dependence PAST SURGICAL HISTORY Procedure Laterality Date CHOLECYSTECTOMY DILATION & CURETTAGE DX&/THER NONOBSTETRIC 2016 multiple procedures TONSILLECTOMY & ADENOIDECTOMY <AGE 10 FAMILY HISTORY Problem Relation Age of Onset Hypertension Mother No Known Problems Father No Known Problems Sister No Known Problems Brother Cancer Maternal Grandmother Sinus Diabetes Paternal Grandmother Heart Failure Paternal Grandmother Heart Failure Paternal Grandfather Social History Tobacco Use Smoking status: Every Day Packs/day: 0.50 Years: 20.00 Additional pack years: 0.00 Total pack years: 10.00 Types: Cigarettes Smokeless tobacco: Never Substance Use Topics Alcohol use: Not Currently Drug use: Never Obstetric History T2 L3 SAB0 IAB0 Ectopic0 Multiple0 Live Births3 Name of Baby 1: Marvin Date: 02/23/[birth year] [place]: 39w0d Delivery: Vaginal, Spontaneous Apgar1: Not recorded Apgar5: Not recorded Living: Living Name of Baby 2: Stephen Date: 02/04/10 [place]: 37w1d Delivery: Vaginal, Spontaneous Apgar1: Not recorded Apgar5: Not recorded Living: Living Name of Baby 3: Rodney Date: 09/08/15 [place]: 24w0d Delivery: Vaginal, Spontaneous Apgar1: Not recorded Apgar5: Not recorded Living: Living Name of Baby 4: Not recorded Date: Not recorded [place]: Not recorded Delivery: Not recorded Apgar1: Not recorded Apgar5: Not recorded Living: Not recorded Active Non-Hospital Problems Diagnosis Date Noted premature rupture of membranes 04/12/2023 Overview Note: -previable ROM at 0900 on 04/12, clear -recent -US with cardiac activity, anhydramnios at OSH & confirmed in OB ED on bedside scan -we discussed that rupture at previable gestation is associated with poor outcomes. We discussed the importance of amniotic fluid for maturation of lungs and GI tract. We discussed management options to include risks and benefits of expectant, medical, and surgical options. At this time the patient desires to consider her options with her partner. -will admit to [facility] for consult in AM -consider family planning consult pending management decision premature rupture of membranes (PPROM) with unknown onset of labor 04/12/2023 Overview Note: Presented to [facility] with PROM at 16 weeks. USN shows oligo. Had PPROM at 24 weeks last . Child overall meeting milestones with limited delay. Patient desired conservative management given past history. Outcomes reviewed with the patient. Plan 1. Weekly visits with ob given high risk of demise and risk of infection. 2. Return to hospital at 22 weeks or labor. 3 USN as needed Assessment & Plan Note: Presented to [facility] with PROM at 16 weeks. USN shows oligo. Had PPROM at 24 weeks last . Child overall meeting milestones with limited delay. Patient desired conservative management given past history. Outcomes reviewed with the patient. Plan 1. Weekly visits with ob given high risk of demise and risk of infection. 2. Return to hospital at 22 weeks or labor. 3 USN as needed Hx of delivery, currently , second trimester 04/12/2023 Overview Note: -25wk rupture of membranes believed to be secondary to trichomonas Nausea and vomiting during 03/11/2023 Overview Note: Taking Zofran - discussed risks during first Reviewed Vitamin B6 and Unisom dosages AMA (advanced maternal age) multigravida 35+, second trimester 03/11/2023 Overview Note: Plan for testing 3rd trimester. MFM consult placed. Plans for NT scan and [id number]. Taking ASA 81 mg. History of labor, current , first trimester 03/11/2023 Overview Note: 25 weeks after trich infection. MFM consult placed. PPROM AT 16 Weeks. Will not follow CL. Assessment & Plan Note: PPROM AT 16 Weeks. Will not follow CL. Severe obesity due to excess calories affecting in second trimester (HCC) 03/11/2023 Overview Note: Pre BMI 34 Plan for testing 3rd trimester History of gestational diabetes in prior , currently 03/11/2023 Overview Note: Now currently DM2 Dependence on nicotine from cigarettes 03/11/2023 Overview Note: -1/2 ppd -nicotine replacement as needed History of trichomoniasis 03/11/2023 Overview Note: Reports infection caused PTL PCOS (polycystic ovarian syndrome) 03/11/2023 Overview Note: History of irregular cycles Encounter for supervision of high risk in first trimester, antepartum 03/11/2023 Gestational diabetes mellitus in , controlled by oral hypoglycemic drugs 03/11/2023 Overview Note: MFM consult placed. Taking ASA 81 mg. On Metformin at this time. Stopped Trulicity Consider echo, EKG, eye exam. CMP, TSH, protein creatinine ratio, and Hemoglobin A1c ordered. Cervical cancer screening 03/11/2023 Overview Note: History of abnormal pap. Pap today. Anxiety and depression 07/01/2022 Overview Note: Taking Zoloft. Has counselor. Coping well at this time. History of abdominal hernia 10/02/2020 Overview Note: Coping well at this time. History of atrial fibrillation 10/02/2020 Overview Note: Occurred after attempted tubal ligation, went into cardiac arrest with anesthesia Gastroesophageal reflux disease 10/02/2020 Overview Note: Discussed Tums and Pepcid. History of asthma 10/02/2020 Overview Note: Uses Albuterol. Advised to stop smoking. Type 2 diabetes mellitus during , second trimester Overview Note: -Metformin 1000mg BID -log/NPH [5-10]-[5-10]-[0]-22 Endocrine- Dr. Ramirez Plan 1. anatomy at 18-20 weeks. 2. Echo at 22 weeks if makes it that far given PPROM. 3. Encouraged tight control because of associated risk with T2DM Assessment & Plan Note: Endocrine- Dr. Ramirez Plan 1. anatomy at 18-20 weeks. 2. Echo at 22 weeks if makes it that far given PPROM. 3. Encouraged tight control because of associated risk with T2DM ALLERGIES Allergen Reactions Codeine Other: See Comments Jardiance [Empaglif* Intolerance Body aches, headaches earache Nubain [Nalbuphine] Vomiting Oxycodone Vomiting Percocet [Oxycodone* Vomiting Metformin Diarrhea, GI Upset Rapid release only-pt states OK to take ER PRIOR TO ADMISSION MEDICATIONS: Cannot display prior to admission medications because the patient has not been admitted in this contact. REVIEW OF SYSTEMS: The remainder of the review of systems is negative. Objective LAST VITALS: Pulse BP Resp O2 Sat Temp Pain 120/66 HT/WT/BMI: Height Weight BMI 223 lb 12.8 oz (101.5 kg) 0 PHYSICAL EXAM: General: WD, WN, morbidly obese, NAD, comfortable HEENT: NC/AT, no thyromegaly Lungs: normal respiratory effort Abdomen: soft, nontender, no masses, obese gravid Uterus: soft, NT, Seen on USN LABS Diagnostic tests reviewed for today's visit: No new labs Impression/Recommendations 33 year old EGA:16w2d. History of labor, current , first trimester PPROM AT 16 Weeks. Will not follow CL. premature rupture of membranes (PPROM) with unknown onset of labor Presented to [facility] with PROM at 16 weeks. USN shows oligo. Had PPROM at 24 weeks last . Child overall meeting milestones with limited delay. Patient desired conservative management given past history. Outcomes reviewed with the patient. Plan 1. Weekly visits with ob given high risk of demise and risk of infection. 2. Return to hospital at 22 weeks or labor. 3 USN as needed Type 2 diabetes mellitus during , second trimester Endocrine- Dr. Ramirez Plan 1. anatomy at 18-20 weeks. 2. Echo at 22 weeks if makes it that far given PPROM. 3. Encouraged tight control because of associated risk with T2DM Heron Rodriguez MD SIGNATURE: Heron Rodriguez MD PATIENT NAME: Charmaine Cochran DATE: April 14, 2023 TIME: 10:59 AM documented in this encounter [facility] 04-13-2023 Note HNO ID: [id number] Author: Heron Rodriguez MD Service: Obstetrics Author Type: Physician Type: Progress Notes Filed: 04/13/2023 1:51 PM Note Text: Patient was seen at the bedside during MFM rounds with Dr. Rodriguez this morning. Dr. Rodriguez reviewed [facility] data regarding the potential outcomes of her . Options for management of previable rupture of membranes were discussed with patient. At this time patient would like expectant management. Plan for patient to receive formal growth ultrasound this afternoon and then discharged to home after that. We reviewed return precautions including labor, if she begins to have signs of infection, heavy vaginal bleeding, or severe abdominal pain. Deedee Barksdale DO Obstetrics and Gynecology PGY-2 Pager #: [phone] April 13, 2023 12:01 PM I saw the patient again in ultrasound and discussed the findings. I gave her warning signs to follow. [facility] Heron Rodriguez MD [facility] 04-13-2023 Note HNO ID: [id number] Author: Deedee Barksdale DO Service: Obstetrics Author Type: Resident Type: Progress Notes Filed: 04/13/2023 6:28 AM Note Text: Attestation signed by Heron Rodriguez MD at 04/13/2023 1:51 PM I reviewed hospital course and agree. Heron Rodriguez MD OBSTETRICS ANTEPARTUM PROGRESS NOTE SERVICE DATE: 04/13/2023 SERVICE TIME: 6:26 AM Assessment AND Plan : 33 year old EGA:16w1d admitted for previable rupture of labor . Plan of care discussed with: Provider, RN, Patient. Active Hospital Problems Diagnosis Date Noted premature rupture of membranes (PPROM) with unknown onset of labor 04/12/2023 premature rupture of membranes 04/12/2023 Overview Note: -previable ROM at 0900 on 04/12, clear -recent -US with cardiac activity, anhydramnios at OSH AND confirmed in OB ED on bedside scan -we discussed that rupture at previable gestation is associated with poor outcomes. We discussed the importance of amniotic fluid for maturation of lungs and GI tract. We discussed management options to include risks and benefits of expectant, medical, and surgical options. At this time the patient desires to consider her options with her partner. -will admit to [facility] for consult in AM -consider family planning consult pending management decision Hx of delivery, currently , second trimester 04/12/2023 Overview Note: -25wk rupture of membranes believed to be secondary to trichomonas Dependence on nicotine from cigarettes 03/11/2023 Overview Note: -1/2 ppd -nicotine replacement as needed History of atrial fibrillation 10/02/2020 Overview Note: Occurred after attempted tubal ligation, went into cardiac arrest with anesthesia Diabetes type 2, controlled (HCC) Overview Note: -Metformin 1000mg BID -log/NPH [5-10]-[5-10]-[0]-22 Subjective : No current vaginal bleeding, No current leaking of fluid, No contractions, Good movement, No shortness of breath or chest pain, and No calf tenderness Patient is coping well at this time. Objective : LAST VITALS: Pulse BP Resp O2 Sat Temp Pain 90 103/51 18 98 % 36.1 ?C (97 ?F) 0 PHYSICAL EXAM: General: well-appearing, AANDO Heart: regular rate and rhythm Lungs: CTAB Abdomen: soft, gravid Extremities: symmetrical, no edema, warmth, or overlying skin changes MONITORING/ASSESSMENT: heart rate present and appropriate via bedside US last night upon admission LABS Diagnostic tests reviewed for today's visit: Most recent labs and imaging results. SIGNATURE: Deedee Barksdale DO PATIENT NAME: Charmaine DATE: April 13, 2023 TIME: 6:26 AM [facility] 04-12-2023 Note HNO ID: [id number] Author: Yancy Cota MD Service: Obstetrics Author Type: Resident Type: Progress Notes Filed: 04/12/2023 10:34 PM Note Text: In to answer pt and partner's questions with nursing. Pt remains hopeful for a good outcome as fetus has cardiac activity and movement. She states her 7 year old was delivered at 25 weeks without any intermediate school teacher sequela. We discussed the significant differences in gestational age at time of diagnoses. We discussed that our ultrasound assessments cannot reveal how well the fetus will do from a resuscitation perspective or a developmental perspective. The patient asked if an amnioinfusion would be appropriate. We discussed indications for an amnioinfusion and that data is limited for second trimester rupture of membranes. Pt requested an ultrasound at this time to assess for cardiac activity. Fetus remains cephalic, anhydramnios with HR 164. Yancy Cota MD OBGYN PGY-2 Pager #[phone] April 12, 2023 10:34 PM [facility] 04-12-2023 Note HNO ID: [id number] Author: Yancy Cota MD Service: Obstetrics Author Type: Resident Type: Procedures Filed: 04/13/2023 12:35 AM Note Text: Attestation signed by Adeel Rothman MD at 05/15/2023 3:55 PM This procedure was performed with me and under my guidance and participation with the resident. I agree with the findings as noted above. Adeel Rothman M.D. Delayed entry - I personally saw/examined the patient on 04/11/2023. Adeel Rothman MD OBSTETRICS LIMITED OB ULTRASOUND REPORT SERVICE DATE: April 12, 2023 SERVICE TIME: 9:02 PM INDICATION: Evaluate amniotic fluid volume Method of imaging: trans-abdominal Number of fetuses: 1 General Evaluation: Presentation(s): Vertex Placental position: Posterior heart motion: Normal FHR: 150 bpm Deepest vertical pocket: 0 cm Gestational age: Clinical: 16 weeks 0 days Interpretation: Anhydramnios consistent with previable premature rupture of membranes. Images associated with this report can be found under the "Get Images" tab in [employer]. The entirety of the examination was performed under direct supervision of Dr. Rothman. SIGNATURE: Yancy Cota MD PATIENT NAME: Charmaine Cochran DATE: April 12, 2023 TIME: 9:02 PM PAGER/CONTACT #: [phone] [facility] 04-12-2023 Note HNO ID: [id number] Author: Yancy Cota MD Service: Obstetrics Author Type: Resident Type: Progress Notes Filed: 04/12/2023 8:59 PM Note Text: Attestation signed by Adeel Rothman MD at 05/15/2023 3:53 PM (Updated) I saw and evaluated the patient. Discussed with the resident and agree with resident's findings and plan as documented in the resident's note. The patient is a 33 year old female, , who is at 16w0d with an LEELA of 09/27/2023, by Last Menstrual Period dating method. Patient is here complaining of rupture of membranes. Noted leakage of clear fluid starting at 0900 this AM. Delayed entry - I personally saw/examined the patient on 04/11/2023. MD Adeel Lara MD OBSTETRICS OB ED PROGRESS NOTE SERVICE DATE: April 12, 2023 SERVICE TIME: 5:52 PM Subjective Patient's stated reason for arrival: No fluid around baby CHIEF COMPLAINT: Rupture of membranes HISTORY OF THE PRESENT ILLNESS: The patient is a 33 year old female, , who is at 16w0d with an LEELA of 09/27/2023, by Last Menstrual Period dating method. Patient is here complaining of rupture of membranes. Noted leakage of clear fluid starting at 0900 this AM. Went to [facility] for evaluation. An ultrasound was performed with cardiac activity and anhydramnios. The patient was advised to present here for further management. She is not having any abdominal pain or vaginal bleeding. Endorses a 10/10 headache. Recently completed initial labs and all negative for infections. NIPT low risk. No abnormal discharge, itching, or irritation. was unplanned. Pt intended for a tubal ligation surgery in 2017; however, went into cardiac arrest after induction of general anesthesia. Hx of one delivery for premature rupture of membranes with spontaneous labor. All pregnancies complicated by gestational diabetes. Now with a diagnosis of DM2 on insulin and metformin. Medical history reviewed and updated as below. PAST MEDICAL HISTORY Diagnosis Date Anxiety state Atrial fibrillation (HCC) Cardiac arrest (HCC) With subsequent A. fib after initiation of anesthesia June 2016 with tubal, converted with diltiazem after 11 hours, she follows with cardiology Diabetes type 2, controlled (HCC) 2015 GERD (gastroesophageal reflux disease) History of depression Mixed hyperlipidemia Morbid obesity (HCC) Tobacco dependence PAST SURGICAL HISTORY Procedure Laterality Date CHOLECYSTECTOMY DILATION AND CURETTAGE DXAND/THER NONOBSTETRIC 2016 multiple procedures TONSILLECTOMY AND ADENOIDECTOMY OB History T2 L3 SAB0 IAB0 Ectopic0 Multiple0 Live Births3 REVIEW OF SYSTEMS: ROS as per HPI. Objective LAST VITALS: Pulse: 102 BP: 116/57 Resp: 16 Temp: 36.9 ?C (98.4 ?F) SpO2: 97 % Height: 172.7 cm (5' 8") Weight: 102.1 kg (225 lb) BMI: 34.21 PHYSICAL EXAM: General: WD, WN, obese, NAD, comfortable Heart: RR, S1, S2, no gabe, rub, or murmur appreciated Lungs: clear to auscultation and normal respiratory effort Abdomen: soft, nontender, no masses Uterus: soft, NT Extremities: no edema SSE: small amount of clear fluid, parous cervix visibly 1cm dilated, no bleeding or clots present Normal external genitalia, Normal urethral meatus CERVICAL EXAM: Dilation: 1 (04/12/231834 : Yancy Cota MD) Station: High (04/12/231834 : Yancy Cota MD) Effacement (%): 20 (04/12/231834 : Yancy Cota MD) MONITORING/ASSESSMENT: FHR: 162 Ultrasound: See procedure report LABS Diagnostic tests reviewed for today's visit: Most recent labs and imaging results. Assessment/Plan 33 year old EGA:16w0d. Presenting with previable, , premature rupture of membranes. Active Hospital Problems Diagnosis Date Noted premature rupture of membranes (PPROM) with unknown onset of labor 04/12/2023 premature rupture of membranes 04/12/2023 -previable ROM at 0900, clear -US with cardiac activity, anhydramnios at OSH AND confirmed in OB ED on bedside scan -we discussed that rupture at previable gestation is associated with poor outcomes. We discussed the importance of amniotic fluid for maturation of lungs and gut. We discussed management options to include risks and benefits of expectant, medical, and surgical options. At this time the patient desires to consider her options with her partner. -will admit to [facility] for consult in AM -consider family planning consult pending management decision Plan of care discussed with: Provider, RN, Patient. Discussed with Dr. Rothman. SIGNATURE: Yancy Cota MD PATIENT NAME: Charmaine DATE: April 12, 2023 TIME: 5:52 PM PAGER/CO (more content not included)... [facility] 04-10-2023 Miscellaneous Notes Reviewed BG data- responded as follows: Obinna Montano- I reviewed your BG data- I would recommend that you adjust your insulin as follows: increase NPH 22 units at bedtime increase Humalog to 7 units prior to breakfast, 10 units prior to lunch and 10 units prior to dinner. Take additional 5 units with "higher carb" meals- Will review again next week- thanks! KB documented in this encounter [facility] 04-09-2023 Miscellaneous Notes KJ - VB No. LOF No. CTXS No. Movement: absent. Other c/o: No. Medication list reviewed. Physical Exam See Flow Sheet Gen: no accute distress, well appearing Abd: soft, nontender, gravid A/P 15w4d Estimated Date of Delivery: 09/27/23 H/o PTD - cervical lengths every 2 weeks Anatomy US with MFM consult needs scheduled AFP ordered (advised to complete other labs with this) DM - follows with Dr.Borst Richie Doll MD documented in this encounter [facility] 04-09-2023 Instructions Masters Vania Ratliff - 04/09/2023 2:04 PM EST SEQUENTIAL SCREENINGS The [facility] offers sequential screenings for women who are interested in screenings for chromosomal abnormalities and certain defects during a . The sequential screen combines ultrasound and blood tests to determine the risk of chromosomal abnormalities, including Down's Syndrome (Trisomy 21) and Trisomy 18, as well as open neural tube defects including spina bifida. Ultrasound examination is performed between 11 weeks and 13 weeks gestational age. Blood tests are drawn after the ultrasound and again later in the between 15 and 21 weeks gestational age. Please let your physician know if you are interested in this testing. It will require an appointment with our medical laboratory technician. This is not an ultrasound performed by a physician in our office during a routine visit. SIGNS AND SYMPTOMS OF LABOR 1. Contractions every 10 minutes or more often 2. Clear, pink, or brownish fluid (water) leaking from vagina 3. Feeling that baby is pushing down, pressure 4. Low, dull backache 5. Cramps that feel like a period 6. Cramps with or without diarrhea If you notice any of the above symptoms, contact our office at [phone] and ask to speak with a nurse. After hours, you can call doctors registry at [phone] OR call [facility] at [phone] and ask to have the doctor field control inspector paged. If you consider this an emergency, dial 5-1-7 or go to your nearest emergency department. NEED HELP? Are you dealing with a violent or abusive relationship? Are you a victim of rape or sexual assult? Call [facility] ([facility] 24 hour Crisis Hotline: 628.700.6320 or 525-193-1013. MANUAL Your Guide to a Healthy manual is now on-line. Visit [email or web address] Stiven to download your free copy documented in this encounter [facility] 04-06-2023 Miscellaneous Notes Reviewed BG data- responded as follows: Obinna Montano- sorry for the delay in response. And sorry that you are having issues with the Dexcom! I will ask my RN to reach out to you to see if you are still having issues, etc. I reviewed your BG data- I would recommend that you adjust your insulin as follows: increase NPH to 15 units at bedtime continue Humalog 5 units prior to meals. I would recommend that you take an additional 5 units of Humalog with "higher carb" meals (means if you eat something that you think will increase your BG - take the additional insulin with that meal). Abelino with * on your log if/when you take this so I can see if it is working or not. Forward me your BG data again by the end of the week- thanks! KB documented in this encounter [facility] 04-06-2023 Miscellaneous Notes Patient is having trouble with Dexcom. She is requesting BG supplies to check her BG manually. documented in this encounter [facility] 03-17-2023 Miscellaneous Notes 1st risk assessment form submitted 03/17/23 Veronica Telles RN documented in this encounter [facility] 03-17-2023 History of Present illness Narrative Reason for consultation: Evaluation of type 2 diabetes antepartum. Referring Physician: Richie Doll MD My final recommendations will be communicated back to the requesting physician by way of shared Medical record or letter via US mail. This Team Access Model visit is a virtual encounter. It required patient-provider interaction for the medical decision making as documented below. I have communicated my name and active licensure. The patient's identity and physical location were verified at the time of this visit. Either the patient or their legal branch service representative has been informed of the risks and benefits of -- and alternatives to -- treatment through a remote evaluation and consents to proceed with the evaluation remotely. HISTORY OF PRESENT ILLNESS; Ms. Cochran is a 33 year old presenting at 12+ weeks gestation for consultation regarding type 2 diabetes antepartum. Pt with GDM in all three previous pregnancies. She was initially diagnosed with diabetes in 2016- after delivery of third child after post GTT. Required insulin during third (as well as glyburide) No known microvascular or macrovascular complications - states she follows with ophthalmology annually- but she is overdue now. Her current regimen is as follows: Metformin ER 500 mg two tabs twice/day. Was taking Trulicity prior to the Most recent HbA1c 03/11 is 7.5%. She does not have a glucometer- just got Dexcom yesterday. She has a family history of diabetes mellitus including her paternal grandmother . Her prepregnancy weight was 210 lbs and her current weight is 225 lbs. Her dietary history is as follows: Breakfast: skips this (nausea) Lunch: eats a snack Dinner: meat, vegetable, sloppy joes and ku[place] fries, cube steaks, spaghetti. Hypoglycemia frequency: n/a Hypoglycemia awareness: n/a Hyperglycemia Symptoms: denies blurry vision reports polyuria denies polydipsia reports nocturia denies rapid weight loss Saw OB initially on 03/11- plans to deliver at [facility]. PAST MEDICAL HISTORY Diagnosis Date Anxiety state Atrial fibrillation (HCC) Cardiac arrest (HCC) With subsequent A. fib after initiation of anesthesia June 2016 with tubal, converted with diltiazem after 11 hours, she follows with cardiology Diabetes type 2, controlled (HCC) 2015 GERD (gastroesophageal reflux disease) History of depression Mixed hyperlipidemia Morbid obesity (HCC) Tobacco dependence PAST SURGICAL HISTORY Procedure Laterality Date CHOLECYSTECTOMY DILATION & CURETTAGE DX&/THER NONOBSTETRIC 2016 multiple procedures TONSILLECTOMY & ADENOIDECTOMY <AGE 12 FAMILY HISTORY Problem Relation Age of Onset Hypertension Mother No Known Problems Father No Known Problems Sister No Known Problems Brother Cancer Maternal Grandmother Sinus Diabetes Paternal Grandmother Heart Failure Paternal Grandmother Heart Failure Paternal Grandfather Social History Tobacco Use Smoking status: Every Day Packs/day: 0.50 Years: 20.00 Additional pack years: 0.00 Total pack years: 10.00 Types: Cigarettes Smokeless tobacco: Never Substance Use Topics Alcohol use: Not Currently Drug use: Never Current Outpatient Medications Medication Sig Dispense Refill PNV no.[id number] ( GUMMIES) 400 mcg-35 mg- 25 mg-5 mg chew Take by mouth. Blood-Glucose Sensor (DEXCOM G7 SENSOR) stephanie Insert 1 sensor on the back of arm. Replace every 10 days as directed. 3 Each 5 sertraline (ZOLOFT) 50 mg tablet Take 1 tablet by mouth once daily. 30 tablet 2 ondansetron orally disintegrating (ZOFRAN ODT) 4 mg disintegrating tablet Take 1 tablet by mouth every 6 hours as needed for nausea/vomiting. 10 tablet 0 Blood-Glucose Meter,Continuous (DEXCOM G7 HOME THEATRE TECHNICIAN) misc Use to test blood sugar as directed. 1 Each 0 loratadine (CLARITIN) 10 mg tablet Take 1 tablet by mouth once daily as needed. 90 tablet 1 aspirin, enteric coated (ASPIRIN, ENTERIC COATED) 81 mg EC tablet Take 1 tablet by mouth once daily. 90 tablet 3 metFORMIN ER (GLUCOPHAGE XR) 500 mg 24 hr tablet Take 2 tablets by mouth twice daily with meals. 360 tablet 3 alcohol swabs (ALCOHOL PADS) Apply 1 application to affected area once daily. 100 Each 2 blood sugar diagnostic (BLOOD GLUCOSE TEST) test strip Test blood sugar(s) 3 times daily. Dx: Type 2 DM - Controlled E11.9 Insulin: Yes 100 Strip 5 fluticasone (FLONASE) 50 mcg/actuation nasal spray Use 1 [place] in each nostril once daily. As needed albuterol HFA (PROVENTIL HFA, VENTOLIN HFA) 90 mcg/actuation inhaler Inhale 2 Puffs as instructed. No current facility-administered medications for this visit. Allergies As of Date: 03/17/2023 Allergen Noted Reaction CODEINE 10/02/2020 Other: See Comments JARDIANCE [EMPAGLIFLOZIN] 08/26/2021 Intolerance NUBAIN [NALBUPHINE] 10/02/2020 Vomiting OXYCODONE 03/22/2019 Vomiting PERCOCET [OXYCODONE-ACETAMINOPHEN]10/02/2020 Vomiting METFORMIN 03/11/2023 Diarrhea and GI Upset Fully Assessed 03/11/2023 REVIEW OF SYSTEMS: General: no fever and no chills Skin: no rashes, pruritis or dry skin Eyes: no blurred or double vision or eye pain Cardiac: denies chest pain, heart palpitations or orthopnea Pulmonary: denies wheezing, productive cough or exertional dyspnea GI: denies nausea and denies vomiting Musc: denies history of upper or lower extremity weakness Reproductive: gravid at 12+ weeks gestation, Endocrine: complains of polyuria and nocturia Hematology: Negative for anemia, easy bleeding and bruising. PHYSICAL EXAM: No vitals as this was a virtual visit GENERAL: Alert, no distress, cooperative SKIN: Skin color, texture, turgor normal. No rashes or lesions. HEAD/SINUSES: No significant findings EYES: sclera non-icteric, EOMs intact. ABDOMEN: gravid at 12 weeks EXTREMITIES: Normal exam of the extremities NEURO: AAO x 3, no focal deficits The remainder of the physical exam is noncontributory. DATA: Component Latest Ref Rng & Units 06/25/2021 11/29/2021 08/30/2022 03/11/2023 Hemoglobin A1C 4.3 - 5.6 % 7.2 (H) 6.7 (H) 6.6 (H) 7.5 (H) Estimated Average Glucose mg/dL 160 146 143 169 Hemoglobin A1C (POCT) 4.2 - 5.6 % 7.0 (A) TSH Date Value Ref Range Status 03/11/2023 1.450 0.270 - 4.200 mIU/L Final Comment: If the patient is , TSH reference range varies by gestational period: First Trimester (weeks 9-12): 0.180-2.990 mIU/L Second Trimester: 0.110-3.980 mIU/L Third Trimester: 0.480-4.710 mIU/L Emerson Crawford et al. A Practical Approach for the Verifications and Determination of Site- and Trimester-Specific Reference Intervals for Thyroid Function tests in . Thyroid, 2019:29:3:412-420. Ezra Briggs, et al. 2017 Guidelines of the [place] [employer] for the Diagnosis and Management of Thyroid Disease during and the . Thyroid, 2017:27:3:315-389. IMPRESSION: Ms. Cochran is a 33 year old female at 12+ weeks gestation here for evaluation of type 2 diabetes antepartum. RECOMMENDATIONS: 1. The patient was counseled regarding the maternal and risks of hyperglycemia during . risks include, but are not limited to: congenital abnormalities, hypoxia and stillbirth, macrosomia, shoulder dystocia and hypoglycemia. Maternal risks include increased risks of pre-eclampsia and delivery. 2. I recommend the patient check her blood glucose fasting and 2 hour after each meal, we have provided her with a glucometer if she does not have one. The following blood glucose targets were discussed: fasting blood glucose concentration between 60-90 mg/dL, and 2 hour postprandial blood glucose concentration of less than 120 mg/dL. She was encouraged to limit carbohydrate intake, to walk after meals, (if not contraindicated) and will be scheduled with our dietitian, (if not done already). Regarding her blood glucose management, I recommend she do the followin) check your sugars fasting (60-90 mg/dL) and 2 hours post meal (less than 120 mg/dL)- use Dexcom , but write the fasting/2 hour post meal numbers down and forward me these data each thursday to e-mail below. 2) forward me your blood glucose data weekly ([email or web address]) 3) schedule appointment with your eye doctor GEETA- 4) for now- continue Metformin ER 500 mg two tabs twice/day. I expect you will require insulin in the near future. 5) see me in six weeks (virtual visit) for f/u - my office will contact you to schedule this Charmaine will call us with any questions or concerns in the interim. 3. Ophthalmology no hx of DR but is not uptodate with them- I advised her to schedule with them geeta- discussed risk of de rome retinopathy in - in particular with aggressive glycemic control. I spent a total of 60 minutes on the date of the service which included preparing to see the patient, qqfm-sk-dwuw patient care, completing clinical documentation, obtaining and/or reviewing separately obtained history, performing a medically appropriate examination, counseling and educating the patient/family/caregiver, and ordering medications, tests, or procedures. Adeel Ramirez DO documented in this encounter [facility] 03-13-2023 Miscellaneous Notes Spoke with patient, she is going to do virtual GDM education prior to virtual visit with Dr. Ramirez. Patient referred from OB in [place], patient thought Dr. Ramirez would see her in [place], due to where patient lives patient is going to see Dr. Ramirez virtually. documented in this encounter [facility] 03-12-[address] Ramirez's air duct mechanic messaged again by Carlos Alberto. Abril Garza RN Please call endocrinology Dr Ramirez office and let them know that pt has decided to see Dr Ramirez and they can call pt to schedule an appointment. Daphney Alcala APRN.KATHI documented in this encounter [facility] 03-12-2023 Miscellaneous Notes See 03/12/23 Togethera message. Abril Garza RN Email sent to Dr Ramirez air duct mechanic-Arlene. I have cc Bea Scott on email Summary: Endocrinology Consult to endocrinology placed for management of type 2 diabetes during . Please call patient and assist her with scheduling with Dr. Ramirez. Should be seen GEETA. Referral received. [place] patient. Lives in [place]. Sent to [place] team to assist with consult. documented in this encounter [facility] 03-12-2023 Miscellaneous Notes [facility] geeta due to failed glucose test. Patient stated that she thought Dr. Ramirez would see her in [place] based on the conversation she had with the [facility]. Advised patient to follow up with [facility] to clarify if there was a different provider she was supposed to see. Patient advised she will reach out to [facility] [employer] and ask to clarify and will reach back to us to schedule with Dr. Ramirez if indeed he is the provider. documented in this encounter [facility] 03-11-2023 Instructions Vasu Gaxiola APRN.TIE UP WORKER - 03/11/2023 3:02 PM EDT Please select the following link to access the [facility] Your Guide to a Healthy . [email or web address] MORNING SICKNESS IN by Shannon Youssef M.D. for [employer] As you may already know, morning sickness can often be more appropriately called evening sickness or qezat-jpogma-nm-the-day sickness. While there are the stephenie few, most women (50-90%) experience some degree of nausea, some have vomiting, and a few develop a severe form of vomiting during called hyperemesis gravidarum. What causes the nausea and vomiting of ? We can't explain why some people feel fine and others are green for months. Even the same woman may feel vastly different in each . There is some relationship between nausea and the level of the hormone hCG. In twin pregnancies, and in other situations where the hCG is greater than expected, nausea and vomiting tend to be worse. In a destined for miscarriage, hCG levels tend to be low, and nausea is often less severe. This being said, a lack of nausea doesn't guarantee that the is destined for miscarriage. The fact that nausea and vomiting are often signs of a healthy can offer a silver lining in the dark cloud of miserable nausea. How long will the nausea last? Fortunately, for most women, nausea and vomiting are a first trimester event, peaking at week 9-10 and waning by week 14-16. When you are feeling bad the weeks can go by slowly but most moms do feel tremendously better by the middle of the . Whether morning sickness is a brief experience or lasts through most of the , there are treatments that can make the weeks or months more tolerable. What can you do about it? Diet: See what works for you. Try eating bland dry foods, and avoid fatty or spicy foods. It is okay to eat a less than perfectly balanced diet in the first trimester. Have your liquids separately from dry foods. Try sports drinks, water, clear juices, Yung-aid, or non-caffeinated tea. Avoid carbonated beverages that fill up your stomach. Try eating lots of little meals. If you tend to feel sick when you first wake up, leave crackers next to the bed for a quick snack before rising. Keeping healthy snacks with you all day to nibble when you feel queasy can sometimes even prevent nausea from starting. vitamins and nausea: Pre-adam vitamins can sometimes worsen nausea in . While folate is necessary, especially early in the , it comes as a smaller pill that many people find more tolerable than the complete vitamin pill. Ask your practitioner if it is okay to temporarily replace vitamins and iron with just a folate pill if you find a significant worsening in the level of your nausea from the vitamins. Alternative therapies: Acupressure may be used to treat nausea in , and is not known to have any risks for the fetus. Wristbands (marketed for seasickness) that put pressure on an acupressure point at the wrist are often available at drugstores or travel stores. Megan root is used for nausea in many traditional cultures. Some women take fresh grated megan or megan tablets. It is possible that the pill form contains other ingredients or contaminants, so you may want to try fresh megan first. Medications: Emetrol is the only nausea medication approved for use in . It is available over the counter and is soothing to the stomach. A prescription medication called Bendectin was available in the -s and was shown to be safe in , but the company stopped marketing it in the [place] due to the costs of liability coverage. Bendectin contained 10 milligrams of vitamin B6 and 10 milligrams of Doxylamine. Two tablets were given at bedtime and a total of up to 4 tablets could be used in a 24-hour period. Interestingly, Unisom , which contains a higher dose (25 mg.) of the same medication, Doxylamine, is currently marketed as an lags-izb-ydqocua sleeping pill. Ask your practitioner if creating a vitamin B6/Doxylamine combination with xlse-xsa-mlilmqt medications would be safe for you. Prescription medications like Compazine and Phenergan can be used if the benefits outweigh possible risks, but these have not been clearly shown to be safe in . Zofran , an expensive anti-nausea medication often used to treat nausea from chemotherapy, can also be used. Can I throw up so much it harms the baby? The act of vomiting cannot hurt your fetus, which is protected inside the uterus. If you get dehydrated or develop a metabolic imbalance, this can be unhealthy. As long as you can keep down liquids, you and your baby will generally do all right. Eat when you feel able. If you are unable to keep anything down, or if you notice potential signs of dehydration such as lightheadedness, or concentrated and/or infrequent urination, call your practitioner. Some women need brief hospital admission for intravenous fluids and anti-nausea medications if their condition becomes severe. This severe form of nausea and vomiting is called Hyperemesis Gravidarum. As with many symptoms of , remind yourself that this, too, shall pass, and you'll have a wonderful baby to show for it! TREATMENT OPTIONS, SHORT VERSION: Frequent small meals Hydrate throughout day [employer] wrist pressure point applicators Megan root (powdered, in capsules) 250mg four times a day Vitamin B6 25 mg tablet three times a day Also may be taken with half a tablet of Unisom three times a day (Doxylamine 12.5 mg) If severe (weight loss, dehydration), call us and come in for IV hydration and possible medication in the form of injections. Prescription medications such as Phenergan, Compazine, Reglan documented in this encounter [facility] 03-11-2023 History of Present illness Narrative INITIAL OB ASSESSMENT OB Provider: HPI: Charmaine is a 33 year old White here to establish Obstetrical Care. Patient's last menstrual period was 12/21/2022 (approximate). from OB Dating Form. Cycles Was on depo for years and had no periods. Patient last depo was beginning of this year. Only had one period prior to this pregancy was unplanned but accepted (not preventing) Complaints: None OB History T2 L3 SAB0 IAB0 Ectopic0 Multiple0 Live Births3 Previous history: Prior : never History of 4th degree laceration: No History of shoulder dystocia: No History of Hypertensive disorders including pre-eclampsia, chronic hypertension or gestational hypertension: No History of gestational diabetes: Yes Patient's Risk Screening for delivery: Have you had a prior mandujano between 20w and 36w6d?: (!) Yes Did you present in active spontaneous labor or have ruptured membranes, or advanced cervical dilation (greater than or equal to 4 cm) or effacement?: (!) Yes MEDICAL/PSYCHOSOCIAL HISTORY: History of hemorrhage or bleeding concerns: No Thyroid Disease: No History of chronic hypertension: No History of pre-existing diabetes: Yes No results found for: "ABORHD" No weight on file for this encounter. History of abnormal pap: Yes Prior treatment for cervical dysplasia: had colposcopy in the past. History of STDs: Trichomonas Tobacco use: Yes, smokes 1/2 a pack a day. Was smoking 1.5 packs a day. Caffeine use: Yes, 1 cup of coffee per day and 1 diet pop a day Drug use: No Alcohol use: No Multivitamin with Folic acid: Yes Presybeterian or heritage: No Would refuse blood transfusion if medically necessary: No Are you currently employed? Yes, Occupation: [employer] Do you have any history of depression, anxiety, PTSD, eating disorders or other mood problems: Yes- anxiety and depression Do you have any safety concerns or history of traumatic events that you would like to discuss with your provider: No SDOH Screening: How often does this describe you? I don't have enough money to pay my bills: Never Within the past 12 months, have you worried that your food would run out before you had money to buy more: Never In the past 12 months, has lack of reliable transportation kept you from going to medical appointments or work, or from keeping things needed for daily living: Never In the past 12 months, have you had any concerns about having a place to live, or about the condition or quality of your housing: Never Are there any cultural or spiritual needs we should be aware of: No Depression/Anxiety Screening: denies symptoms of depression. OB Depression and Anxiety Screening- This Encounter (since 03/10/2023) Over the past 2 weeks have you felt down, depressed, or hopeless? Negative Over the past two weeks, have you felt little interest or pleasure in doing things? Negative Feeling nervous, anxious or on edge 0-Not at all Not being able to stop or control worrying 0-Not al all Anxiety Pre-Screening Total (If >/= 3 additional questions will be reviewed) 0 Genetic Screening: Partner present: No Patient verbalized knowledge of partner family health history: No Do you or your partner have any personal or family history of defects not previously discussed: No Do you have history of a complicated by anomaly, genetic condition, or demise: No ACOG Recommended Screening Screening for early gestational diabetes testing: Criteria for early testing requires elevated BMI plus one other risk factor: No weight on file for this encounter. (risk factor if > than 25 or 23 in Americans) Additional risk factors: patient has type 2 diabetes She does meet ACOG criteria for early gestational DM screening. Screening for low dose aspirin use for the prevention of pre-eclampsia: Low dose aspirin should be considered if the patient has one high or two moderate risk factors: High risk factors: Type I or II diabetes mellitus Moderate risk ractors: Obesity (body mass index greater than 30) She does meet criteria for low dose ASA Marital Status:Co-habitating Partner: Name: Adeel Age: 35 Occupation: [employer] Gender: Male History of STDs: None PAST MEDICAL HISTORY Diagnosis Date Anxiety state Cardiac arrest (HCC) With subsequent A. fib after initiation of anesthesia June 2016, converted with diltiazem after 11 hours, she follows with cardiology Diabetes type 2, controlled (HCC) GERD (gastroesophageal reflux disease) History of depression Mixed hyperlipidemia Morbid obesity (HCC) Tobacco dependence PAST SURGICAL HISTORY Procedure Laterality Date CHOLECYSTECTOMY DILATION & CURETTAGE DX&/THER NONOBSTETRIC 2016 multiple procedures TONSILLECTOMY & ADENOIDECTOMY <AGE 10 Current Outpatient Medications Medication Sig Dispense Refill [facility] no.[id number] ( GUMMIES) 400 mcg-35 mg- 25 mg-5 mg chew Take by mouth. sertraline (ZOLOFT) 50 mg tablet Take 1 tablet by mouth once daily. 30 tablet 2 metFORMIN ER (GLUCOPHAGE XR) 500 mg 24 hr tablet Take 2 tablets by mouth twice daily with meals. 360 tablet 3 Blood-Glucose Sensor (DEXCOM G7 SENSOR) stephanie Insert 1 sensor on the back of arm. Replace every 10 days as directed. 3 Each 5 ondansetron orally disintegrating (ZOFRAN ODT) 4 mg disintegrating tablet Take 1 tablet by mouth every 6 hours as needed for nausea/vomiting. 10 tablet 0 Blood-Glucose Meter,Continuous (DEXCOM G7 HOME THEATRE TECHNICIAN) [facility] Use to test blood sugar as directed. 1 Each 0 loratadine (CLARITIN) 10 mg tablet Take 1 tablet by mouth once daily as needed. 90 tablet 1 aspirin, enteric coated (ASPIRIN, ENTERIC COATED) 81 mg EC tablet Take 1 tablet by mouth once daily. 90 tablet 3 alcohol swabs (ALCOHOL PADS) Apply 1 application to affected area once daily. 100 Each 2 blood sugar diagnostic (BLOOD GLUCOSE TEST) test strip Test blood sugar(s) 3 times daily. Dx: Type 2 DM - Controlled E11.9 Insulin: Yes 100 Strip 5 fluticasone (FLONASE) 50 mcg/actuation nasal spray Use 1 [place] in each nostril once daily. As needed albuterol HFA (PROVENTIL HFA, VENTOLIN HFA) 90 mcg/actuation inhaler Inhale 2 Puffs as instructed. No current facility-administered medications for this visit. Allergies As of Date: 03/11/2023 Allergen Noted Reaction CODEINE 10/02/2020 Other: See Comments JARDIANCE [EMPAGLIFLOZIN] 08/26/2021 Intolerance NUBAIN [NALBUPHINE] 10/02/2020 Vomiting PERCOCET [OXYCODONE-ACETAMINOPHEN]10/02/2020 Vomiting Fully Assessed 03/11/2023 Does patient have penicillin allergy: No REVIEW OF SYSTEMS: GENERAL: Negative for: Fever or Chills HEENT: Negative for: Headache, Impaired Vision, Ringing in Ears, Nosebleeds NECK: Negative for: Swelling, Pain, Stiffness RESPIRATORY: Negative for: Shortness of breath, Wheezing + Cough GASTROINTESTINAL: Negative for: Constipation, Diarrhea, Blood in stool, Vomiting and Positive for: Heartburn and Nausea MUSCULOSKELETAL: Negative for: Muscle or joint pain, stiffness, Joint swelling NEUROLOGIC/PSYCHIATRIC: Negative for: Weakness, Paralysis, Numbness, Tingling, Tremor, Anxiety, Depression, Memory loss SKIN: Negative for: Rash, Itching GENITOURINARY: Negative for: vaginal itching, vaginal discharge, hematuria or dysuria PHYSICAL EXAM: BP 122/74 Ht 5' 8" (1.73m) Wt 225 lb (102.1kg) LMP 12/21/2022 BMI 34.22 kg/(m^2). GENERAL: pleasant in no apparent distress DERMATOLOGY: Normal, without lesions, non-icteric, and non-hirsute NECK: Supple, full range of motion, no adenopathy, and thyroid normal CHEST: Normal inspiratory effort BREAST: soft, non-tender, symmetric, no dominant mass, normal nipple-areolar complex, no lymphadenopathy, and no nipple discharge ABDOMEN: soft, non-tender, and no masses NEURO: alert and oriented x3,exam grossly non-focal PELVIS: External genitalia normal without lesions. Perineal body intact. No vaginal or cervical lesions. Cervix closed. Uterus 11 week size. No adnexal masses or tenderness. Clinical Pelvimetry: Pelvimetry clinically assessed as adequate Limited OB ultrasound exam: single intrauterine and positive cardiac activity OB Risk Screening: Completed, positive findings include: Patient will be less than 17 or greater than 34 at the time of Delivery Patient answered 'Yes' they had a prior mandujano between 20w and 36w6d. ASSESSMENT: 33 year old at 11w3d wks gestational age PLAN: 1) Patient oriented to practice. Patient given new OB orientation folder. Discussed nutrition, folic acid supplementation, dietary guidelines, exercise, smoking, alcohol, caffeine, and drug use. Discussed gestational weight gain guidelines. Discussed routine OB labs including STD/HIV. Discussed how to access Your guide to a health and the [employer]. Discussed aneuploidy and carrier screening. Regarding aneuploidy screening, nuchal translucency/first trimester early anatomy ultrasound and NIPT were discussed. Regarding carrier screening, the myriad screen was discussed. The risks/benefits and limitations of NIPT/aneuploidy screening were reviewed including the potential for false negative and false positive results. We discussed the availability of professional-society guided carrier screening and reviewed the conditions screened and limitations of screening. The availability of genetic counseling was reviewed. Information on aneuploidy/carrier screening was provided. The patient chooses: Aneuploidy screening: chooses to proceed with First trimester early anatomy ultrasound (12-13w6d) and NIPT (10 weeks) and Carrier screening: Accepts Discussed hemoglobin electrophoresis. Patient: Accepts Patient offered option of Virtual Visits. Patient unsure. May consider in future. Reviewed midwifery and cottage parent services that are available. Reviewed [employer] program. Patient declines referral at this time. 2) History of . Will order MFM consult for further discussion. History of diabetes: Type 2 Diabetes Previous LGA baby Given pre gestational diabetes, ordered Hemoglobin A1C, TSH, CMP, PCR and MFM consult AMA: Aneuploidy screening reviewed Problem List Items Addressed This Visit Cardiovascular History of atrial fibrillation Overview Occurred after attempted tubal ligation, went into cardiac arrest with anesthesia. Gastrointestinal Nausea and vomiting during Overview Taking Zofran - discussed risks during first Reviewed Vitamin B6 and Unisom dosages Endocrinology History of gestational diabetes in prior , currently Overview Now currently DM2 Gestational diabetes mellitus in , controlled by oral hypoglycemic drugs Overview MFM consult placed. Taking ASA 81 mg. On Metformin at this time. Stopped Trulicity Consider echo, EKG, eye exam. CMP, TSH, protein creatinine ratio, and Hemoglobin A1c ordered. 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 MFM consult placed. Plans for NT scan and [id number]. Taking ASA 81 mg. Psychiatry Depressive disorder Overview Taking Zoloft. Has counselor. Coping well at this time. Other Anxiety state Overview Taking Zoloft. Sees counselor. Coping well at this time. History of abdominal hernia Overview Coping well at this time. History of asthma Overview Uses Albuterol. Advised to stop smoking. History of labor, current , first trimester Overview 25 weeks after trich infection. MFM consult placed. Obesity complicating , first trimester Overview Pre BMI 34 Plan for testing 3rd trimester Relevant Orders PROTEIN CREATININE RATIO History of trichomoniasis Overview Reports infection caused PTL 11 weeks gestation of Overview LMP consistent with ultrasound. Encounter for supervision of high risk in first trimester, antepartum - Primary Relevant Orders CBC SYPHILIS TOTAL W/REFLEX RUBELLA IGG AB HEP B SURF AG SCRN HEPATITIS C ANTIBODY IA WITH CONFIRMATION HIV 1 2 COMBO(AG/AB),WITH REFLEX TO DIFFERENTIATION TYPE + SCREEN GONORRHEA/CHLAMYDIA NAAT URINE CULTURE OBSTETRIC ULTRASOUND WHI NUCHAL TRANSLUCENCY WHI TEST RIDER CONSULT TO MATERNAL MEDI TSH BLD [id number] PLUS HEMOGLOBIN EVALUATION CASCADE Cervical cancer screening Overview History of abnormal pap. Pap today. Relevant Orders PAP TEST Other Visit Diagnoses with uncertain viability, single or unspecified fetus Relevant Orders POC RESOURCE ECONOMIST ULTRASOUND (Completed) Follow up in 4 weeks or sooner prn. Plan for NT scan between 12w0d and 13w6d gestation. CELIA Christine APRN.TIE UP WORKER documented in this encounter [facility] 03-11-2023 History of Past i llness Narrative Problem Noted Date Diagnosed Date Resolved Date Mixed hyperlipidemia 023 documented as of this encounter (statuses as of 03/12/2023) [facility] History of Past illness Narrative* Problem Noted Date Diagnosed Date Resolved Date Mixed hyperlipidemia 023 documented as of this encounter (statuses as of 03/12/2023) [facility] History of Past illness Narrative* Problem Noted Date Diagnosed Date Resolved Date Mixed hyperlipidemia 023 documented as of this encounter (statuses as of 03/12/2023) [facility] History of Past illness Narrative* Problem Noted Date Diagnosed Date Resolved Date Mixed hyperlipidemia 023 documented as of this encounter (statuses as of 03/12/2023) [facility] History of Past illness Narrative* Problem Noted Date Diagnosed Date Resolved Date Mixed hyperlipidemia 023 documented as of this encounter (statuses as of 03/13/2023) [facility] History of Past illness Narrative* Problem Noted Date Diagnosed Date Resolved Date Mixed hyperlipidemia 023 documented as of this encounter (statuses as of 03/17/2023) [facility] History of Past illness Narrative* Problem Noted Date Diagnosed Date Resolved Date Mixed hyperlipidemia 023 documented as of this encounter (statuses as of 03/17/2023) [facility] History of Past illness Narrative* Problem Noted Date Diagnosed Date Resolved Date Mixed hyperlipidemia 023 documented as of this encounter (statuses as of 03/20/2023) [facility] History of Past illness Narrative* Problem Noted Date Diagnosed Date Resolved Date Mixed hyperlipidemia 023 documented as of this encounter (statuses as of 04/06/2023) [facility] History of Past illness Narrative* Problem Noted Date Diagnosed Date Resolved Date Mixed hyperlipidemia 023 documented as of this encounter (statuses as of 04/07/2023) [facility] History of Past illness Narrative* Problem Noted Date Diagnosed Date Resolved Date Mixed hyperlipidemia 023 documented as of this encounter (statuses as of 04/09/2023) [facility] History of Past illness Narrative* Problem Noted Date Diagnosed Date Resolved Date Mixed hyperlipidemia 023 documented as of this encounter (statuses as of 04/10/2023) [facility] History of Past illness Narrative* Problem Noted Date Diagnosed Date Resolved Date 11 weeks gestation of 03/11/2023 04/12/2023 Overview: LMP consistent with ultrasound. Anxiety state 04/12/2023 Overview: Taking Zoloft. Sees counselor. Coping well at this time. Mixed hyperlipidemia 023 documented as of this encounter (statuses as of 04/13/2023) [facility] History of Past illness Narrative* Problem Noted Date Diagnosed Date Resolved Date 11 weeks gestation of 03/11/2023 04/12/2023 Overview: LMP consistent with ultrasound. Anxiety state 04/12/2023 Overview: Taking Zoloft. Sees counselor. Coping well at this time. Mixed hyperlipidemia 023 documented as of this encounter (statuses as of 04/14/2023) [facility]10-18-2023 History of Past illness Narrative* Problem Noted Date Diagnosed Date Resolved Date 11 weeks gestation of 03/11/2023 04/12/2023 Overview: LMP consistent with ultrasound. Anxiety state 04/12/2023 Overview: Taking Zoloft. Sees counselor. Coping well at this time. Mixed hyperlipidemia 023 documented as of this encounter (statuses as of 04/17/2023) [facility]10[facility] History of Past illness Narrative* Problem Noted Date Diagnosed Date Resolved Date 11 weeks gestation of 03/11/2023 04/12/2023 Overview: LMP consistent with ultrasound. Anxiety state 04/12/2023 Overview: Taking Zoloft. Sees counselor. Coping well at this time. Mixed hyperlipidemia 023 documented as of this encounter (statuses as of 04/17/2023) [facility] History of Past illness Narrative* Problem Noted Date Diagnosed Date Resolved Date 11 weeks gestation of 03/11/2023 04/12/2023 Overview: LMP consistent with ultrasound. Anxiety state 04/12/2023 Overview: Taking Zoloft. Sees counselor. Coping well at this time. Mixed hyperlipidemia 023 documented as of this encounter (statuses as of 04/20/2023) [facility] History of Past illness Narrative* Problem Noted Date Diagnosed Date Resolved Date 11 weeks gestation of 03/11/2023 04/12/2023 Overview: LMP consistent with ultrasound. Anxiety state 04/12/2023 Overview: Taking Zoloft. Sees counselor. Coping well at this time. Mixed hyperlipidemia 023 documented as of this encounter (statuses as of 04/21/2023) [facility] History of Past illness Narrative* Problem Noted Date Diagnosed Date Resolved Date 11 weeks gestation of 03/11/2023 04/12/2023 Overview: LMP consistent with ultrasound. Anxiety state 04/12/2023 Overview: Taking Zoloft. Sees counselor. Coping well at this time. Mixed hyperlipidemia 023 documented as of this encounter (statuses as of 04/23/2023) [facility] History of Past illness Narrative* Problem Noted Date Diagnosed Date Resolved Date 11 weeks gestation of 03/11/2023 04/12/2023 Overview: LMP consistent with ultrasound. Anxiety state 04/12/2023 Overview: Taking Zoloft. Sees counselor. Coping well at this time. Mixed hyperlipidemia 023 documented as of this encounter (statuses as of 04/29/2023) [facility] History of Past illness Narrative* Problem Noted Date Diagnosed Date Resolved Date 11 weeks gestation of 03/11/2023 04/12/2023 Overview: LMP consistent with ultrasound. Anxiety state 04/12/2023 Overview: Taking Zoloft. Sees counselor. Coping well at this time. Mixed hyperlipidemia 023 documented as of this encounter (statuses as of 05/01/2023) [facility] History of Past illness Narrative* Problem Noted Date Diagnosed Date Resolved Date 11 weeks gestation of 03/11/2023 04/12/2023 Overview: LMP consistent with ultrasound. Anxiety state 04/12/2023 Overview: Taking Zoloft. Sees counselor. Coping well at this time. Mixed hyperlipidemia 023 documented as of this encounter (statuses as of 05/14/2023) [facility] History of Past illness Narrative* Problem Noted Date Diagnosed Date Resolved Date 11 weeks gestation of 03/11/2023 04/12/2023 Overview: LMP consistent with ultrasound. Anxiety state 04/12/2023 Overview: Taking Zoloft. Sees counselor. Coping well at this time. Mixed hyperlipidemia 023 documented as of this encounter (statuses as of 07/01/2023) [facility] History of Past illness Narrative* Problem Noted Date Diagnosed Date Resolved Date 11 weeks gestation of 03/11/2023 04/12/2023 Overview: LMP consistent with ultrasound. Anxiety state 04/12/2023 Overview: Taking Zoloft. Sees counselor. Coping well at this time. Mixed hyperlipidemia 023 documented as of this encounter (statuses as of 07/23/2023) [facility] History of Past illness Narrative* Problem Noted Date Diagnosed Date Resolved Date 11 weeks gestation of 03/11/2023 04/12/2023 Overview: LMP consistent with ultrasound. Anxiety state 04/12/2023 Overview: Taking Zoloft. Sees counselor. Coping well at this time. Mixed hyperlipidemia 023 documented as of this encounter (statuses as of 07/24/2023) [facility] History of Past illness Narrative* Problem Noted Date Diagnosed Date Resolved Date 11 weeks gestation of 03/11/2023 04/12/2023 Overview: LMP consistent with ultrasound. Anxiety state 04/12/2023 Overview: Taking Zoloft. Sees counselor. Coping well at this time. Mixed hyperlipidemia 023 documented as of this encounter (statuses as of 09/09/2023) [facility] History of Past illness Narrative* Problem Noted Date Diagnosed Date Resolved Date 11 weeks gestation of 03/11/2023 04/12/2023 Overview: LMP consistent with ultrasound. Anxiety state 04/12/2023 Overview: Taking Zoloft. Sees counselor. Coping well at this time. Mixed hyperlipidemia 023 documented as of this encounter (statuses as of 09/10/2023) [facility] History of Past illness Narrative* Problem Noted Date Diagnosed Date Resolved Date 11 weeks gestation of 03/11/2023 04/12/2023 Overview: LMP consistent with ultrasound. Anxiety state 04/12/2023 Overview: Taking Zoloft. Sees counselor. Coping well at this time. Mixed hyperlipidemia 023 documented as of this encounter (statuses as of 09/10/2023) [facility]09-28-2023 Miscellaneous Notes* Telephone Encounter - Junior Jeong MD - 02/19/2023 4:30 PM EDT Okayed * Telephone Encounter - She Almanza LPN - 02/19/2023 10:58 AM EDT Patient has been identified by name and date of : Yes, Provider Dr. Jeong Date 02/19/23 Time10:59 am Patient phones for refill(s): Requested Prescriptions Pending Prescriptions Disp Refills Blood-Glucose Sensor (DEXCOM G7 SENSOR) stephanie 3 Each 5 Sig: Insert 1 sensor on the back of arm. Replace every 10 days as directed. Date of last office visit in primary care: 02/03/23 next apt 05/05/23 Last 2 Encounter Wt Readings: Date: Wt: 02/03/2023 101.9 kg (224 lb 9.6 oz) 10/17/2022 99.3 kg (219 lb) Previous labs/tests for medication: Diabetes: Hemoglobin A1C (%) Date Value 08/30/2022 6.6 11/29/2021 6.7 06/25/2021 7.2 01/10/2021 9.0 Hemoglobin A1C (POCT) (%) Date Value 08/30/2022 7.0 Thank you. She Almanza LPN documented in this encounterE[facility]09[facility] Miscellaneous Notes* Telephone Encounter - Ofe Sharma LPN - 02/09/2023 4:29 PM EDT Pt has appointments scheduled appointments. Oef Sharma LPN * Telephone Encounter - Abril Garza RN - 02/04/2023 11:17 AM EDT Left message for patient to call office. Abril Garza RN * Telephone Encounter - Mimi Harden MD - 02/04/2023 8:41 AM EDT Patient tried to make NOB and apparently was overwhelmed and confused by what she needed to schedule. Can someone reach out to her and get her scheduled. Don't make her have 3 appointments, PNOB/nob and then first OB. Just make her 2 appointments or one for now and we will schedule the next one after that. Thanks. Mimi Harden MD documented in [facility] encounterE[facility]09-[facility]-2023 Miscellaneous Notes* Telephone Encounter - Salma Bowers MA - 02/04/2023 4:02 PM EDT FYI documented in this encounterE[facility]09-01-2023 Miscellaneous Notes* Telephone Encounter - Junior Jeong MD - 01/23/2023 1:06 AM EDT Stop lisinopril now--not safe for baby/fetus. Med taken off med list so refills should be canceled at pharmacy. Stop nabumetone--only take if okay with OB given risks with this class of meds. Stop simvastatin--potential for harm the baby/fetus so should be stopped. Stop hydroxyzine. Stop Pepcid--can check with OB if has increased reflux and see whether okay to resume. Okay: Prilosec Claritin She can decide with OB whether or not should try to get off venlafaxine and if okay to stay on Zofran as needed for nausea and vomiting. Looks like current recommendation to stop Trulicity during . Should check with her OB. Will forward above to patient via [employer], but she should also run everything by her OB, and consider review with pharmD. documented in this encounterE[facility]07-01-2023 Miscellaneous Notes* Telephone Encounter - Eliza Harden LPN - 11/22/2022 11:27 AM EDT Left a detailed message script was sent to pharmacy. * Telephone Encounter - Junior Jeong MD - 11/21/2022 5:35 PM EDT Okayed RX per protocol for dental infections--should last till gets a hold of dentist next Thursday or Thursday. The following approved medication requests have been transmitted electronically. Requested Prescriptions Signed Prescriptions Disp Refills amoxicillin (AMOXIL) 875 mg tablet 10 tablet 0 Sig: Take 1 tablet by mouth twice daily for 5 days. Authorizing Provider: JUNIOR JEONG MD * Telephone Encounter - Tasha Pina - 11/21/2022 3:16 PM EDT Charmaine Cochran is calling Junior Jeong MD today with concern regarding she had 7 teeth pulledlast week and has pain and infection. The office is not available and told her to call her PCP for medication. Please call patient. Patient has been identified by name and birthdate. Duration of symptoms: Person calling: self Call patient at: on cell [phone] (home) [phone] (cell) Was an appointment scheduled: No Closing statement: Symptom Call: Thank you for calling [facility], your call is very important. A nurse will call in approximately 2-4 hours during business hours. If this is an emergency, please contact 911. Tasha Pina documented in this encounterElyria [facility] Hospital06-30-2023 Miscellaneous Notes* Telephone Encounter - Luzmaria Carter LPN - 11/21/2022 8:27 AM EDT Patient has been identified by name and date of : Yes, Provider Manoj Date 11/21/22 Time 8:27am Patient phones for refill(s): Requested Prescriptions Pending Prescriptions Disp Refills lisinopril 2.5 mg tablet 90 tablet 3 Sig: Take 1 tablet by mouth once daily. Date of last office visit in primary care: 10/17/22 Last 2 Encounter Wt Readings: Date: Wt: 10/17/2022 99.3 kg (219 lb) 08/30/2022 96.2 kg (212 lb) Please advise. Thank you. Luzmaria Carter LPN documented in this encounterEly[facility]06-19-2023 Miscellaneous Notes* Telephone Encounter - Paula Howard APRN.CNP - 11/10/2022 1:14 PM EDT Patient seen in office 10/16, next appointment scheduled 11/20 Paula Howard APRN.CNP documented in this encounterE[facility]04-26-2023 Miscellaneous Notes* Telephone Encounter - Vasu Orozco [facility] - 09/17/2022 9:14 AM EDT Images from the original note were not included. documented in this encounterElyria [facility] Hospital04-14-2023 History of Present illness Narrative* Vasu Orozco RPh - 09/05/2022 11:30 AM EDT Images from the original note were not included. Primary Care Pharmacy Visit CC (Reason for Consult): Diabetes Goal: A1c < 7% Collaborating Provider: Dr. Jeong Last Provider Visit: 08/30/22 Charmaine Cochran is a 32 year old female presenting for follow up visit by telephone. Patient consents to pharmacy collaborative practice agreement. Patient is presenting today for f/up pharmacotherapy management appointment for diabetes. At PharmDvisit on 01/16/22, patient discharged from PharmD services for achieving adequate DM control. On 08/04 patient reached out to PharmD indicating issues with BG control and wanting to reestablish care. At last PharmD visit on 08/05, patient reported recent BG elevations with night-time sweating. No med c hanges made but CGM ordered and patient advised to discuss sweating at upcoming PCP visit. At last PCP visit, metformin was held. Subjective: HPI: Patient reports not having any questions today. Said she had gone to ED for headaches, was given a steroid and feeling much better overall. States Dexcom fell off on Thursday, having new shipment delivered today. No issues with frequency of urination, dry mouth or thirst at this time. No vision changes or numbness/tingling of hands or feet. No issues with lows. States sugars are high in AM, sometimes in 250s. Personal goals: get sugars stabilized, weight loss Current DM Medications: Metformin ER 500mg tabs - 1000mg BID Dulaglutide (Trulicity) 1.5mg weekly (max-tolerated dose) on Sundays Past DM medications: Mariah Webb Glyburide GLYCEMIC CONTROL: Preventative Medications: On HUBER/ARB: Yes On Statin: Yes DIET/EXERCISE/SOCIAL Hx: Breakfast: 3 eggs with cheese (egg in a basket, using white bread) Lunch: skips a lot Dinner: eats dinner around 6-6:30 PM; several nights ago had "egg roll in a bowl"; spaghetti (will have 1 scoop) Snacks: grapes, PB with a little marshmallow fluff, crackers - snacks throughout the day because doesn't feel hungry much Beverages: diet mountain dew; 1-2 diet sodas/day, drinks bottled water with flavoring, coffee in AM Exercise: walking, exercise bike Tobacco: smoking 1 pack every 1.5 days, not interested in quitting MEDICATIONS: Pill bottles are not present Adherence: denies missed doses Pharmacy: [facility] coverage: [facility] Affordability: no issues Diabetes supplies: [employer] System: Pill boxes (AM and PM) ACTIVE PROBLEM LIST Diabetes Type 2, Controlled (Hcc) Anxiety State Mixed Hyperlipidemia History of Abdominal Hernia History of Atrial Fibrillation Gastroesophageal Reflux Disease History of Asthma PAST MEDICAL HISTORY Diagnosis Date Anxiety state Cardiac arrest (HCC) With subsequent A. fib after initiation of anesthesia June 2016, converted with diltiazem after11 hours, she follows with cardiology Diabetes type 2, controlled (HCC) GERD (gastroesophageal reflux disease) History of depression Mixed hyperlipidemia Morbid obesity ([facility]) Tobacco dependence ALLERGIES Allergen Reactions Codeine Other: See Comments Jardiance [Empaglif* Intolerance Body aches, headaches earache Nubain [Nalbuphine] Vomiting Percocet [Oxycodone* Vomiting Medication List Medication Directions Comments Action/Plan albuterol HFA (PROVENTIL HFA, VENTOLIN HFA) 90 mcg/actuation inhaler Inhale 2 Puffs as instructed. alcohol swabs (ALCOHOL PADS) Apply 1 application to affected area once daily. aspirin, enteric coated (ASPIRIN, ENTERIC COATED) 81 mg EC tablet Take 1 tablet by mouth once daily. blood sugar diagnostic (BLOOD GLUCOSE TEST) test strip Test blood sugar(s) 3 times daily. Dx: Type 2 DM - Controlled E11.9 Insulin: Yes Blood-Glucose Meter monitoring kit Glucose Meter of Choice - Kit - Dx: Type 2 DM - Controlled E11.9- Test 3 times daily -Insulin: Yes Patient not taking: Reported on 02/07/2022 Blood-Glucose Meter,Continuous (DEXCOM G7 HOME THEATRE TECHNICIAN) [facility] [place] to test blood sugar as directed. Blood-Glucose Sensor (DEXCOM G7 SENSOR) stephanie Insert 1 sensor on the back of arm. Replace every 10 days as directed. Chlorhexidine Gluconate (PERIDEX) 0.12 % solution twice daily. Patient not taking: Reported on 08/30/2022 dulaglutide (TRULICITY) 1.5 mg/0.5 mL pen injector Inject 1.5 mg subcutaneously one time a week. famotidine (PEPCID) 20 mg tablet Take 1 tablet by mouth once daily. fluticasone (FLONASE) 50 mcg/actuation nasal spray Use 1 [place] in each nostril once daily. As needed hydrOXYzine pamoate (VISTARIL) 25 mg capsule Take 1 capsule by mouth daily at bedtime. ketotifen fumarate (ZADITOR) 0.025 % (0.035 %) ophthalmic solution Use 1 Drop in both eyes twice daily. As needed lisinopril 2.5 mg tablet Take 1 tablet by mouth once daily. loratadine (CLARITIN) 10 mg tablet Take 1 tablet by mouth once daily as needed. metFORMIN ER (GLUCOPHAGE XR) 500 mg 24 hr tablet Take 2 tablets by mouth twice daily with meals. Discontinued: 08/30/2022 9:35 AM nabumetone (RELAFEN) 500 mg tablet Take 1 tablet by mouth twice daily as needed. TAKE WITH FOOD omeprazole (PRILOSEC) 20 mg capsule Take 1 capsule by mouth once daily. simvastatin (ZOCOR) 40 mg tablet Take 1 tablet by mouth daily at bedtime. venlafaxine ER (EFFEXOR XR) 150 mg 24 hr capsule Take 1 capsule by mouth once daily. Discontinued: 08/30/2022 9:34 AM venlafaxine ER (EFFEXOR XR) 75 mg 24 hr capsule Take 1 capsule by mouth once daily. Add to the 150 mg dose daily Objective: Exam: Last 3 Encounter BP Readings: Date: BP: 08/30/2022 112/78 05/06/2022 114/78 02/07/2022 114/72 Wt: 96.2 kg (212 lb) BMI: 32.71 kg/(m^2) LABS: Reviewed Lab Results Component Value Date HBA1C 6.6 08/30/2022 HBA1C 7.0 08/30/2022 HBA1C 6.7 11/29/2021 HBA1C 7.2 06/25/2021 HBA1C 9.0 01/10/2021 HBA1C 9.9 10/02/2020 CMP: Glucose 143 08/30/2022 BUN 10 08/30/2022 Creatinine 0.64 08/30/2022 Sodium 140 08/30/2022 Potassium 4.4 08/30/2022 Chloride 107 08/30/2022 CO2 21 08/30/2022 Protein, Total 7.4 08/30/2022 Albumin 4.5 08/30/2022 Calcium 9.5 08/30/2022 Alkaline Phosphatase 97 08/30/2022 Bilirubin, Total 0.5 08/30/2022 AST 22 08/30/2022 ALT 24 08/30/2022 eGFR >60 Lab Results Component Value Date CHOL 108 11/29/2021 CHOL 129 10/02/2020 LDL 58 11/29/2021 LDL 80 10/02/2020 HDL 35 11/29/2021 HDL 34 10/02/2020 TG 75 11/29/2021 TG 75 10/02/2020 The ASCVD Risk score (Dion GAITAN, et al., 2019) failed to calculate for the following reasons: The 2019 ASCVD risk score is only valid for ages 40 to 79 Albumin/Creat Ratio (mg/g) Date Value 11/29/2021 7 PHARMACOTHERAPY ASSESSMENT/PLAN: 1. Controlled type 2 diabetes mellitus without complication, unspecified whether alf insulin use (HCC) - ICD9: 250.00, ICD10: E11.9 A1c goal < 7%; controlled (last A1c 6.8%); CGM report shows reasonable control, TIR at goal; no current issues with lows; tolerating things well; still having some PPG spikes, has room for dietarymodifications; no med changes, will f/up in ~1 mo to see how CGM report changes with dietary change; renal fxn and LFTs sufficient for use CONTINUE metformin ER 1000mg BID and Trulicity 1.5mg weekly Encouraged eating less process food and more whole foods (ie whole grains/wheat, fruits, veggies, nuts, lean protein). Also suggest snacking on healthier options such as anguillan yogurt, nuts, veggies, berries HbA1c: due in November Follow-up Patient is scheduled to see PCP team on 11/21. Patient to have f/up with PharmD team on 10/10. Patient verbalized understanding of instructions. Vasu Orozco, EfrainD, BCPS Primary Care Clinical Pharmacist The majority of the pharmacy visit (> 50%) was spent counseling and/or coordinating care for thepatient. interaction: telephonic time was 26 minutes. documented in this encounterElyria [facility] Hospital04-11-2023 Miscellaneous Notes* Telephone Encounter - Vasu Orozco RPh - 09/02/2022 1:36 PM EDT Called patient for scheduled phone appt today. Spoke with patient, she states that she currently has a tension headache and is laying down. Not interested in talking right now and would prefer to reschedule. Rescheduled phone appt for this Thursday. Vasu Orozco, EfrainD, BCPS Primary Care Clinical Pharmacist documented in this encounterElyria [facility] Hospital04-08-2023 Instructions* Patient Instructions* Junior Jeong MD - 08/30/2022 9:33 AM EDT Today can take metformin if needed for sugars going over 200s. Try holding the metformin tomorrow when taking the Trulicity in case getting lows from the combination. May take AM dose on Thursday but skip evening dose. Can decide on Metformin dose on Thursday based on how sugars are doing and symptoms of dizziness and nausea. documented in this encounterElyria [facility] Hospital04-08-2023 History of Present illness Narrative* Junior Jeong MD - 08/30/2022 9:11 AM EDT This note was created using [employer]. Subjective Charmaine Cochran is a 32 year old female. Patient presents with: Established Patient: Diabetes and Medication follow-up SUBJECTIVE: Charmaine Cochran is a 32 year old year old lady here today for follow up appointment for review of medical conditions. Had to hold meds since felt meds too much Starting a week ago after adjusted meds. Fel\\t like sugars too high and needed meds adjusted. Dexcom showed sugars up to 250 to 280s even when had not eaten anything. Dizzy--started when sugars high but got worse with changing meds to all in AM for metformin. Nauseated Body felt tingly and numb. Diarrhea yesterday. Metformin increased from 2 twice daily to 4 once daily. Above symptoms started. Did not take meds this AM. Had to leave work early yesterday. Feels fine today. Sugars this AM 201. At night wakes up in cold sweat. Right now sugars 142. Noted did not tolerate Trulicity at higher dose. Has had low sugars down to 40 to 50. Happened this past Thursday/Thursday. Did not have any issues change in diet. PAST MEDICAL HISTORY Diagnosis Date Anxiety state Cardiac arrest (HCC) With subsequent A. fib after initiation of anesthesia June 2016, converted with diltiazem after11 hours, she follows with cardiology Diabetes type 2, controlled ([facility]) GERD (gastroesophageal reflux disease) History of depression Mixed hyperlipidemia Morbid obesity ([facility]) Tobacco dependence Current Outpatient Medications Medication Sig Blood-Glucose Sensor (DEXCOM G7 SENSOR) stephanie Insert 1 sensor on the back of arm. Replace every 10 days as directed. Blood-Glucose Meter,Continuous (DEXCOM G7 HOME THEATRE TECHNICIAN) [facility] [place] Use to test blood sugar as directed. famotidine (PEPCID) 20 mg tablet Take 1 tablet by mouth once daily. venlafaxine ER (EFFEXOR XR) 150 mg 24 hr capsule Take 1 capsule by mouth once daily. venlafaxine ER (EFFEXOR XR) 75 mg 24 hr capsule Take 1 capsule by mouth once daily. Add to the 150 mg dose daily nabumetone (RELAFEN) 500 mg tablet Take 1 tablet by mouth twice daily as needed. TAKE WITH FOOD loratadine (CLARITIN) 10 mg tablet Take 1 tablet by mouth once daily as needed. aspirin, enteric coated (ASPIRIN, ENTERIC COATED) 81 mg EC tablet Take 1 tablet by mouth once daily. dulaglutide (TRULICITY) 1.5 mg/0.5 mL pen injector Inject 1.5 mg subcutaneously one time a week. hydrOXYzine pamoate (VISTARIL) 25 mg capsule Take 1 capsule by mouth daily at bedtime. metFORMIN ER (GLUCOPHAGE XR) 500 mg 24 hr tablet Take 2 tablets by mouth twice daily with meals. simvastatin (ZOCOR) 40 mg tablet Take 1 tablet by mouth daily at bedtime. omeprazole (PRILOSEC) 20 mg capsule Take 1 capsule by mouth once daily. ketotifen fumarate (ZADITOR) 0.025 % (0.035 %) ophthalmic solution Use 1 Drop in both eyes twice daily. As needed alcohol swabs (ALCOHOL PADS) Apply 1 application to affected area once daily. lisinopril 2.5 mg tablet Take 1 tablet by mouth once daily. blood sugar diagnostic (BLOOD GLUCOSE TEST) test strip Test blood sugar(s) 3 times daily. Dx: Type 2 DM - Controlled E11.9 Insulin: Yes fluticasone (FLONASE) 50 mcg/actuation nasal spray Use 1 [place] in each nostril once daily. As needed albuterol HFA (PROVENTIL HFA, VENTOLIN HFA) 90 mcg/actuation inhaler Inhale 2 Puffs as instructed. Chlorhexidine Gluconate (PERIDEX) 0.12 % solution twice daily. (Patient not taking: Reported on 08/30/2022) Blood-Glucose Meter monitoring kit Glucose Meter of Choice - Kit - Dx: Type 2 DM - Controlled E11.9- Test 3 times daily -Insulin: Yes (Patient not taking: Reported on 02/07/2022) No current facility-administered medications for this visit. Review of Systems Objective BP 112/78 Pulse 110 Temp 36.8 C (98.3 F) Resp 18 Wt 96.2 kg (212 lb) LMP (LMP Unknown) SpO2 98% BMI 32.71 kg/m Physical Exam Constitutional: Appearance: Normal appearance. She is obese. HENT: Head: Normocephalic. Eyes: Conjunctiva/sclera: Conjunctivae normal. Cardiovascular: Rate and Rhythm: Normal rate and regular rhythm. Heart sounds: Normal heart sounds. Pulmonary: Effort: Pulmonary effort is normal. Breath sounds: Normal breath sounds. Skin: General: Skin is warm and dry. Neurological: General: No focal deficit present. Mental Status: She is alert and oriented to person, place, and time. Psychiatric: Mood and Affect: Mood normal. Behavior: Behavior normal. Thought Content: Thought content normal. Judgment: Judgment normal. Hemoglobin A1C (%) Date Value 08/30/2022 6.6 11/29/2021 6.7 06/25/2021 7.2 01/10/2021 9.0 10/02/2020 9.9 Hemoglobin A1C (POCT) (%) Date Value 08/30/2022 7.0 Assessment and Plan Encounter Diagnosis ICD-10-CM 1. 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 Dizziness R42 COMP METABOLIC PANEL CBC 3. Nausea R11.0 COMP METABOLIC PANEL CBC 4. Encounter for long-term current use of medication Z79.899 COMP METABOLIC PANEL CBC MAGNESIUM BLD 5. Class 1 obesity due to excess calories with body mass index (BMI) of 32.0 to 32.9 in adult, unspecified whether serious comorbidity present E66.09 Z68.32 Above issues addressed with patient. Patient involved in shared decision making for management of medical issues. History and medications reviewed. Epic updated as needed Refills and/or prescriptions taken care of and meds adjusted as indicated after reviewed history, exam and labs. Health Maintenance reviewed. Updated record and/or ordered tests as recorded. Encouraged on efforts at healthy diet and regular exercise and adequate sleep. Will see whether feels better holding metformin and whether might be dropping too long from combination of metformin and Trulicity though not a typical issue. At least will stop taking 4 metformin miguel time. She will continue working with Vasu on DM med adjustments. Noted did not tolerate higher dose Trulicity. Junior Jeong MD documented [facility] encounter[facility]03[facility]28-[facility]23 Miscellaneous Notes* Telephone Encounter - Vasu Orozco RPh - 08/19/2022 1:58 PM EDT Images from the original note were not included. documented in this encounterEly[facility]03-14-2023 Miscellaneous Notes* Telephone Encounter - Vasu Orozco RPh - 08/05/2022 7:03 PM EDT The following approved medication requests have been transmitted electronically. Requested Prescriptions Signed Prescriptions Disp Refills Blood-Glucose Meter,Continuous (DEXCOM G7 HOME THEATRE TECHNICIAN) misc 1 Each 0 Sig: Use to test blood sugar as directed. Vasu Orozco RPh documented in this encounterEly[facility]12-27-2022 History of Present illness Narrative* Rose Pierson APRN.CNP - 05/20/2022 11:03 AM EST This is an Express Care eVisit note for Charmaine eVisit/Questionnaire reviewed The chief complaint for the visit - Patient presents with: Upper Respiratory Infection Recommendations/Treatment plan - Rx as below plus self care. Decongestants: (choose one): Dayquil/Nyquil, OTC cold and sinus medications, Coricidin HBP (for high blood pressure patients), Nasal sprays: (choose one) Flonase, Nasocort, Rhinocort, Can also try --Saline sprays, Nohemy pot Cough: (choose one) Mucinex, Robitussin, Delsym Sore throat: salt water gargles, chloraseptic spray Pain meds: OTC pain meds, i.e tylenol, motrin, ibuprofen, aleve as needed Good hydration- drink plenty of fluids Humidifier / cool mist vaporizer at night Rest Covid/flu testing See My Chart Message to patient. Recommendation for follow up - PRN The following approved medication requests have been transmitted electronically. Requested Prescriptions No prescriptions requested or ordered in this encounter Rose Pierson APRN.KATHI I spent a total of 5 minutes on the date of the service which included completing clinical documentation. documented in this encounterE[facility]12-13-2022 Instructions* Patient Instructions* Junior Jeong MD - 05/06/2022 8:26 PM EST Decrease Lantus to 40 units twice daily. If still having low sugars in the morning, lower Lantus evening dose another 2 to 5 units. If later in the day having lows, then lower Lantus morning dose another 2 to 5 units. documented in this encounterEly[facility]12-13-2022 History of Present illness Narrative* Junior Jeong MD - 05/06/2022 7:08 PM EST This note was created using [email or web address]. Subjective Charmaine Cochran is a 32 year old female. Patient presents with: Follow Up SUBJECTIVE: Charmaine Cochran is a 32 year old year old lady here today for 3 month follow up appointment for review of medical conditions. Increased anxiety Stressors left end of December Has good support system. Trouble eating. Cannot eat much or get sick with vomiting or diarrhea in AM. If gets peanut butter and cookies and twix and breakfast bar or beef n cheese stick, twix and chips---does okay. By Supper time, able to eat normally. No stomach pain. Just urgency or would have an accident. Has lost weight. PAST MEDICAL HISTORY Diagnosis Date Anxiety state Cardiac arrest (HCC) With subsequent A. fib after initiation of anesthesia June 2016, converted with diltiazem after11 hours, she follows with cardiology Diabetes type 2, controlled (HCC) GERD (gastroesophageal reflux disease) History of depression Mixed hyperlipidemia Morbid obesity (HCC) Tobacco dependence Current Outpatient Medications Medication Sig nabumetone (RELAFEN) 500 mg tablet Take 1 tablet by mouth twice daily as needed. TAKE WITH FOOD loratadine (CLARITIN) 10 mg tablet Take 1 tablet by mouth once daily as needed. aspirin, enteric coated (ASPIRIN, ENTERIC COATED) 81 mg EC tablet Take 1 tablet by mouth once daily. dulaglutide (TRULICITY) 1.5 mg/0.5 mL pen injector Inject 1.5 mg subcutaneously one time a week. hydrOXYzine pamoate (VISTARIL) 25 mg capsule Take 1 capsule by mouth daily at bedtime. metFORMIN ER (GLUCOPHAGE XR) 500 mg 24 hr tablet Take 2 tablets by mouth twice daily with meals. ondansetron (ZOFRAN) 4 mg tablet Take 1 tablet by mouth every 8 hours as needed for nausea/vomiting. simvastatin (ZOCOR) 40 mg tablet Take 1 tablet by mouth daily at bedtime. venlafaxine ER (EFFEXOR XR) 150 mg 24 hr capsule Take 1 capsule by mouth once daily. LEVEMIR FLEXTOUCH U-100 INSULIN 100 unit/mL (3 mL) injection pen Inject 48 Units subcutaneously twice daily. cyclobenzaprine (FLEXERIL) 10 mg tablet Take 1 tablet by mouth at bedtime as needed for muscle spasm (may make drowsy). Take at bedtime famotidine (PEPCID) 20 mg tablet Take 1 tablet by mouth once daily. omeprazole (PRILOSEC) 20 mg capsule Take 1 capsule by mouth once daily. ketotifen fumarate (ZADITOR) 0.025 % (0.035 %) ophthalmic solution Use 1 Drop in both eyes twice daily. As needed alcohol swabs (ALCOHOL PADS) Apply 1 application to affected area once daily. Chlorhexidine Gluconate (PERIDEX) 0.12 % solution twice daily. insulin needles, DISPOSABLE, (TRUEPLUS PEN NEEDLE) 31 gauge x 5/16" Use to inject insulin twice daily as directed. lisinopril 2.5 mg tablet Take 1 tablet by mouth once daily. tiZANidine (ZANAFLEX) 4 mg tablet Take one as needed every 6 to 8 hours as needed for back pain sodium chloride (SALINE NASAL) 0.65 % nasal spray Use 2-3 Sprays in the nose three times daily. blood sugar diagnostic (BLOOD GLUCOSE TEST) test strip Test blood sugar(s) 3 times daily. Dx: Type 2 DM - Controlled E11.9 Insulin: Yes Blood-Glucose Meter monitoring kit Glucose Meter of Choice - Kit - Dx: Type 2 DM - Controlled E11.9- Test 3 times daily -Insulin: Yes (Patient not taking: Reported on 02/07/2022) fluticasone (FLONASE) 50 mcg/actuation nasal spray Use 1 [place] in each nostril once daily. As needed albuterol HFA (PROVENTIL HFA, VENTOLIN HFA) 90 mcg/actuation inhaler Inhale 2 Puffs as instructed. No current facility-administered medications for this visit. Review of Systems Objective There were no vitals taken for this visit. Physical Exam Constitutional: Appearance: Normal appearance. HENT: Head: Normocephalic. Eyes: General: No scleral icterus. Conjunctiva/sclera: Conjunctivae normal. Cardiovascular: Rate and Rhythm: Normal rate and regular rhythm. Heart sounds: Normal heart sounds. Pulmonary: Effort: Pulmonary effort is normal. Breath sounds: Normal breath sounds. Abdominal: General: Abdomen is flat. Palpations: Abdomen is soft. Tenderness: There is no abdominal tenderness. Skin: General: Skin is warm and dry. Neurological: General: No focal deficit present. Mental Status: She is alert and oriented to person, place, and time. Psychiatric: Mood and Affect: Mood normal. Behavior: Behavior normal. Thought Content: Thought content normal. Judgment: Judgment normal. Assessment and Plan Encounter Diagnosis ICD-10-CM 1. Anxiety state F41.1 Noted stressors; marital 2. Nausea R11.0 ondansetron (ZOFRAN) 4 mg tablet Associated with stressors Above issues addressed with patient. Patient involved in shared decision making for management of medical issues. History and medications reviewed. Epic updated as needed Refills and/or prescriptions taken care of and meds adjusted as indicated after reviewed history, exam and labs. Encouraged on efforts at healthy diet and regular exercise and adequate sleep. Emotional support given. Junior Jeong MD documented in this encounterE[facility]11-21-2022 Miscellaneous Notes* Telephone Encounter - Park Vicente Ma - 04/14/2022 10:27 AM EST Last OV: 02/07/22 Next OV: N/A documented in this encounterEly[facility]10-15-2022 Miscellaneous Notes* Telephone Encounter - Junior Jeong MD - 03/08/2022 4:05 PM EDT Okayed * Telephone Encounter - Aditya Hay Ma - 03/08/2022 12:34 PM EDT JOAN: 02/07/2022 Last refill: 02/07/2022 QTY: 60 Refills: 0 Patient's request for medication is as follows: Requested Prescriptions Pending Prescriptions Disp Refills nabumetone (RELAFEN) 500 mg tablet 60 tablet 0 Sig: Take 1 tablet by mouth twice daily as needed. TAKE WITH FOOD Please approve the above prescription(s) to electronically send to pharmacy. Aditya Hay Ma documented in this encounterE[facility]09-28-2022 Miscellaneous Notes* Telephone Encounter - Park Vicente Ma - 02/19/2022 4:30 PM EDT Scheduled documented in this encounterElyria [facility]09-16-2022 History of Present illness Narrative* Junior Jeong MD - 02/07/2022 11:20 AM EDT This note was created using [email or web address]. Subjective Charmaine Cochran is a 32 year old female. Patient presents with: Follow Up SUBJECTIVE: Charmaine Cochran is a 32 year old year old lady here today for follow up appointment for review of medical conditions. Portion control effective. Back pain issues reviewed. Doing better in that able to walk now. Noted that PT had not helped with back pain. One of the exercises does help to loosen things up. 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 Tried a back wrap--had not helped. At work 7AM to 4PM--pain gets increased and has taken norco at noon to get through rest of shift. Still has 11 pills left. Meloxicam not helping. Muscle relaxant had not helped. Neither did Ibuprofen 800 mg Would prefer to try new NSAID. Saw eye doctor November 2021. PAST MEDICAL HISTORY Diagnosis Date Anxiety state Cardiac arrest (HCC) With subsequent A. fib after initiation of anesthesia June 2016, converted with diltiazem after11 hours, she follows with cardiology Diabetes type 2, controlled (HCC) GERD (gastroesophageal reflux disease) History of depression Mixed hyperlipidemia Morbid obesity (HCC) Tobacco dependence Current Outpatient Medications Medication Sig meloxicam (MOBIC) 15 mg tablet Take 1 tablet by mouth once daily. for pain. Take with food. venlafaxine ER (EFFEXOR XR) 150 mg 24 hr capsule Take 1 capsule by mouth once daily. LEVEMIR FLEXTOUCH U-100 INSULIN 100 unit/mL (3 mL) injection pen Inject 48 Units subcutaneously twice daily. cyclobenzaprine (FLEXERIL) 10 mg tablet Take 1 tablet by mouth at bedtime as needed for muscle spasm (may make drowsy). Take at bedtime famotidine (PEPCID) 20 mg tablet Take 1 tablet by mouth once daily. omeprazole (PRILOSEC) 20 mg capsule Take 1 capsule by mouth once daily. hydrOXYzine pamoate (VISTARIL) 25 mg capsule Take 1 capsule by mouth three times daily as needed for anxiety. simvastatin (ZOCOR) 40 mg tablet Take 1 tablet by mouth daily at bedtime. ketotifen fumarate (ZADITOR) 0.025 % (0.035 %) ophthalmic solution Use 1 Drop in both eyes twice daily. As needed alcohol swabs (ALCOHOL PADS) Apply 1 application to affected area once daily. Chlorhexidine Gluconate (PERIDEX) 0.12 % solution twice daily. loratadine (CLARITIN) 10 mg tablet Take 1 tablet by mouth once daily. dulaglutide (TRULICITY) 1.5 mg/0.5 mL pen injector Inject 1.5 mg subcutaneously one time a week. insulin needles, DISPOSABLE, (TRUEPLUS PEN NEEDLE) 31 gauge x 5/16" Use to inject insulin twice daily as directed. lisinopril 2.5 mg tablet Take 1 tablet by mouth once daily. tiZANidine (ZANAFLEX) 4 mg tablet Take one as needed every 6 to 8 hours as needed for back pain sodium chloride (SALINE NASAL) 0.65 % nasal spray Use 2-3 Sprays in the nose three times daily. metFORMIN ER (GLUCOPHAGE XR) 500 mg 24 hr tablet Take 2 tablets by mouth twice daily with meals. aspirin, enteric coated (ASPIRIN, ENTERIC COATED) 81 mg EC tablet Take 1 tablet by mouth once daily. ondansetron (ZOFRAN) 4 mg tablet Take 1 tablet by mouth every 8 hours as needed for nausea/vomiting. blood sugar diagnostic (BLOOD GLUCOSE TEST) test strip Test blood sugar(s) 3 times daily. Dx: Type 2 DM - Controlled E11.9 Insulin: Yes fluticasone (FLONASE) 50 mcg/actuation nasal spray Use 1 [place] in each nostril once daily. As needed albuterol HFA (PROVENTIL HFA, VENTOLIN HFA) 90 mcg/actuation inhaler Inhale 2 Puffs as instructed. Nicotine Polacrilex [address] 1 Lozenge between cheek and gum as needed. Max of 20 lozenges per day (Patient not taking: Reported on 02/07/2022) Blood-Glucose Meter monitoring kit Glucose Meter of Choice - Kit - Dx: Type 2 DM - Controlled E11.9- Test 3 times daily -Insulin: Yes (Patient not taking: Reported on 02/07/2022) No current facility-administered medications for this visit. Review of Systems Objective BP 114/72 Pulse 99 Wt 103.4 kg (228 lb) SpO2 100% BMI 35.18 kg/m Last 5 Encounter Wt Readings: Date: Wt: 02/07/2022 103.4 kg (228 lb) 11/18/2021 109.3 kg (241 lb) 06/25/2021 109.8 kg (242 lb) 01/03/2021 110.2 kg (243 lb) 10/23/2020 113.4 kg (250 lb) No waist measurement recorded Estimated body mass index is 35.18 kg/m as calculated from the following: Height as of 10/23/20: 171.5 cm (5' 7.5"). Weight as of this encounter: 103.4 kg (228 lb). Last 5 Encounter BP Readings: Date: BP: 02/07/2022 114/72 11/18/2021 120/82 06/25/2021 112/80 01/03/2021 106/72 10/23/2020 110/72 Physical Exam Constitutional: Appearance: Normal appearance. HENT: Head: Normocephalic. Eyes: Conjunctiva/sclera: Conjunctivae normal. Cardiovascular: Rate and Rhythm: Normal rate and regular rhythm. Heart sounds: Normal heart sounds. Pulmonary: Effort: Pulmonary effort is normal. Breath sounds: Normal breath sounds. Skin: General: Skin is warm and dry. Neurological: General: No focal deficit present. Mental Status: She is alert and oriented to person, place, and time. Psychiatric: Mood and Affect: Mood normal. Behavior: Behavior normal. Thought Content: Thought content normal. Judgment: Judgment normal. Component Latest Ref Rng & Units 10/02/2020 01/10/2021 06/25/2021 11/29/2021 WBC 3.70 - 11.00 k/uL 11.25 (H) RBC 3.90 - 5.20 m/uL 5.99 (H) Hemoglobin 11.5 - 15.5 g/dL 16.3 (H) Hematocrit 36.0 - 46.0 % 50.1 (H) MCV 80.0 - 100.0 fL 83.6 MCH 26.0 - 34.0 pG 27.2 MCHC 30.5 - 36.0 g/dL 32.5 RDW-CV 11.5 - 15.0 % 13.7 Platelet Count 150 - 400 k/uL 262 MPV 9.0 - 12.7 fL 10.3 Neut% % 63.0 Abs Neut (ANC) 1.45 - 7.50 k/uL 7.08 Lymph% % 29.3 Abs Lymph 1.00 - 4.00 k/uL 3.30 [place]% % 4.8 Abs [place] <0.87 k/uL 0.54 Eosin% % 2.3 Abs Eosin <0.46 k/uL 0.26 Baso% % 0.6 Abs Baso <0.11 k/uL 0.07 Nucleated Reds 0 /100 WBC 0.0 Absolute nRBC <0.01 k/uL <0.01 Diff Type Auto Diff Protein, Total 6.3 - 8.0 g/dL 7.4 6.8 Albumin 3.9 - 4.9 g/dL 4.5 4.1 Calcium 8.5 - 10.2 mg/dL 9.4 9.5 Bilirubin, Total 0.2 - 1.3 mg/dL 0.3 0.3 Alkaline Phosphatase 34 - 123 U/L 112 83 AST 13 - 35 U/L 19 31 Glucose 74 - 99 mg/dL 272 (H) 124 (H) BUN 7 - 21 mg/dL 11 10 Creatinine 0.58 - 0.96 mg/dL 0.58 0.61 Sodium 136 - 144 mmol/L 136 142 Potassium 3.7 - 5.1 mmol/L 4.3 4.2 Chloride 97 - 105 mmol/L 101 106 (H) CO2 22 - 30 mmol/L 21 (L) 21 (L) Anion Gap 9 - 18 mmol/L 14 15 ALT 7 - 38 U/L 23 35 eGFR- >60 eGFR-All Other Races . >60 eGFR >=60 mL/min/1.73m 121 Cholesterol, Total <200 mg/dL 108 Triglyceride <150 mg/dL 75 HDL Cholesterol >39 mg/dL 35 (L) Non HDL Cholesterol <130 mg/dL 73 Fasting Time hrs 10 VLDL Cholesterol <30 mg/dL 15 TC:HDL Ratio <5.10 3.09 LDL Cholesterol <100 mg/dL 58 LDL:HDL Ratio <2.54 1.66 Total Cholesterol, Nonfasting <200 mg/dL 129 Triglycerides, Nonfasting <150 mg/dL 75 HDL Cholesterol, Nonfasting >39 mg/dL 34 (L) LDL Cholesterol, Nonfasting <100 mg/dL 80 Non HDL Cholesterol, Nonfasting <130 mg/dL 95 VLDL Cholesterol, Nonfasting <30 mg/dL 15 Total Chol/HDL Ratio, Nonfasting <5.10 mg/dL 3.79 LDL/HDL Ratio, Nonfasting <2.54 mg/dL 2.35 HIV 12 Combo (Ag/Ab) Non Reactive Non Reactive HIV-1/2 AB Test Not Indicated HIV Interpretation Negative Creatinine, Ur Random (UCRR) 20.0 - 300.0 mg/dL 167.8 259.6 Albumin, Urine Random mg/L 17.1 19.3 Albumin/Creat Ratio <30 mg/g 10 7 Hemoglobin A1C 4.3 - 5.6 % 9.9 (H) 9.0 (H) 7.2 (H) 6.7 (H) Estimated Average Glucose mg/dL 237 212 160 146 Hep C Antibody IA Negative Negative Assessment and Plan documented in this encounterEly[facility]09-12-2022 Miscellaneous Notes* Telephone Encounter - Junior Jeong MD - 02/03/2022 7:02 PM EDT Okayed * Telephone Encounter - Aditya Hay Ma - 02/03/2022 8:15 AM EDT JOAN: 12/30/2021 Last refill: 12/30/2021 QTY: 30 Refills: 0 Patient's request for medication is as follows: Requested Prescriptions Pending Prescriptions Disp Refills meloxicam (MOBIC) 15 mg tablet 30 tablet 0 Sig: Take 1 tablet by mouth once daily. for pain. Take with food. Please approve the above prescription(s) to electronically send to pharmacy. Aditya Hay Ma documented [facility] this [facility]09-12-2022 Miscellaneous Notes* Telephone Encounter - Junior Jeong MD - 02/03/2022 7:01 PM EDT Duplicate request * Telephone Encounter - Aditya Hay Ma - 02/03/2022 8:14 AM EDT JOAN: 12/30/2021 Last refill: 10/23/2021 QTY: 30 Refills: 2 documented in this [facility]09-12-2022 Miscellaneous Notes* Telephone Encounter - Junior Jeong MD - 02/03/2022 7:00 PM EDT The following approved medication requests have been transmitted electronically. Requested Prescriptions Signed Prescriptions Disp Refills venlafaxine ER (EFFEXOR XR) 150 mg 24 hr capsule 30 capsule 2 Sig: Take 1 capsule by mouth once daily. Authorizing Provider: JUNIOR JEONG MD documented in this [facility]09-09-2022 Miscellaneous Notes* Telephone Encounter - Junior Jeong MD - 01/31/2022 7:06 PM EDT The following approved medication requests have been transmitted electronically. Requested Prescriptions Signed Prescriptions Disp Refills cyclobenzaprine (FLEXERIL) 10 mg tablet 30 tablet 0 Sig: Take 1 tablet by mouth at bedtime as needed for muscle spasm (may make drowsy). Take at bedtime Authorizing Provider: JUNIOR JEONG MD * Telephone Encounter - She Almanza LPN - 01/31/2022 12:41 PM EDT Patient has been identified by name and date of : Yes Patient phones for refill(s): Requested Prescriptions Pending Prescriptions Disp Refills cyclobenzaprine (FLEXERIL) 10 mg tablet 30 tablet 0 Sig: Take 1 tablet by mouth at bedtime as needed for muscle spasm (may make drowsy). Take at bedtime Date of last office visit in primary care: 11/18/21 next apt 02/07/22 Last 2 Encounter Wt Readings: Date: Wt: 11/18/2021 109.3 kg (241 lb) 06/25/2021 109.8 kg (242 lb) Previous labs/tests for medication: Not applicable Thank you. She Almanza LPN documented in this encounterEly[facility]09-09-2022 Miscellaneous Notes* Telephone Encounter - Junior Jeong MD - 01/31/2022 1:07 PM EDT Okayed * Telephone Encounter - She Almanza LPN - 01/31/2022 12:39 PM EDT Last entry in [email or web address] for medication below was a med update. Patient has been identified by name and date of : Yes Patient phones for refill(s): Requested Prescriptions Pending Prescriptions Disp Refills LEVEMIR FLEXTOUCH U-100 INSULIN 100 unit/mL (3 mL) injection pen 30 Each 3 Sig: Inject 48 Units subcutaneously twice daily. Date of last office visit in primary care: 11/18/21 next apt 02/07/22 Last 2 Encounter Wt Readings: Date: Wt: 11/18/2021 109.3 kg (241 lb) 06/25/2021 109.8 kg (242 lb) Previous labs/tests for medication: Diabetes: Hemoglobin A1C (%) Date Value 11/29/2021 6.7 06/25/2021 7.2 01/10/2021 9.0 Thank you. She Almanza LPN documented in this encounterElyria [facility]08-25-2022 History of Present illness Narrative* Vasu Orozco, [facility] - 01/16/2022 1:00 PM EDT Images from the original note were not included. Primary Care Pharmacy Visit CC (Reason for Consult): Diabetes Goal: A1c < 7% Collaborating Provider: Dr. Manoj MD Last Provider Visit: 12/30/2021 Charmaine Cochran is a 32 year old female presenting for follow up visit by telephone. Patient consents to pharmacy collaborative practice agreement. Patient is presenting today for f/up pharmacotherapy management appointment for diabetes. At last PharmD visit on 12/25, insulin was increased since patient reported elevated Bgs from recent steroids for back pain. At last [employer] appt, no med changes made. On 01/04 patient went to ED for back pain. Subjective: HPI: Back is better but still hurting. She plans to reach out to [employer] to request a back brace. Taking some pain medicine, has had 3 tabs so far. It has helped with pain. Numbers are starting to come back down. She is able to walk and move around again. Overall feeling pretty good. Energy level is good. Having less frequency of urination. Tolerating Trulicity OK, taking on Sundays. Using portion control. Feels she is still losing weight. Current DM Medications: Metformin ER 500mg tabs - 1000mg BID Dulaglutide (Trulicity) 1.5mg weekly (max-tolerated dose) Insulin detemir (Levemir) 54 units BID (back down to 48 units for the past 2 days) Past DM medications: Jarvinicio Webb Glyburide Current HTN Medications: Lisinopril 2.5mg daily GLYCEMIC CONTROL: Hypoglycemia: none, lowest was 71 mg/dL but did feel shaky How corrected: eat cereal Preventative Medications: On HUBER/ARB: Yes On Statin: Yes DIET/EXERCISE/SOCIAL Hx: No dietary changes Still working on portion control Exercise: more physical activity while recovering from back pain; has a new road bike, hopes to start riding again soon (hopefully Thursday) Tobacco: still smoking, smoking more because of recent pain and stress; wants to try to quit once pain is tolerated MEDICATIONS: Pill bottles are not present Adherence: denies missed doses [facility] Affordability: no issues Diabetes supplies: [employer] System: Pill boxes (AM and PM) ACTIVE PROBLEM LIST Diabetes Type 2, Controlled (Hcc) Anxiety State Mixed Hyperlipidemia History of Abdominal Hernia History of Atrial Fibrillation Gastroesophageal Reflux Disease History of Asthma PAST MEDICAL HISTORY Diagnosis Date Anxiety state Cardiac arrest (HCC) With subsequent A. fib after initiation of anesthesia June 2016, converted with diltiazem after11 hours, she follows with cardiology Diabetes type 2, controlled (HCC) GERD (gastroesophageal reflux disease) History of depression Mixed hyperlipidemia Morbid obesity ([facility]) Tobacco dependence ALLERGIES Allergen Reactions Codeine Other: See Comments Jardiance [Empaglif* Intolerance Body aches, headaches earache Nubain [Nalbuphine] Vomiting Percocet [Oxycodone* Vomiting Medication List Medication Directions Comments Action/Plan albuterol HFA (VENTOLIN HFA) 90 mcg/actuation inhaler Inhale 2 Puffs as instructed. alcohol swabs (ALCOHOL PADS) Apply 1 application to affected area once daily. aspirin, enteric coated (ASPIRIN, ENTERIC COATED) 81 mg EC tablet Take 1 tablet by mouth once daily. blood sugar diagnostic (BLOOD GLUCOSE TEST) test strip Test blood sugar(s) 3 times daily. Dx: Type 2 DM - Controlled E11.9 Insulin: Yes Blood-Glucose Meter monitoring kit Glucose Meter of Choice - Kit - Dx: Type 2 DM - Controlled E11.9- Test 3 times daily -Insulin: Yes Chlorhexidine Gluconate (PERIDEX) 0.12 % solution twice daily. Patient not taking: Reported on 11/18/2021 cyclobenzaprine (FLEXERIL) 10 mg tablet Take 1 tablet by mouth at bedtime as needed for muscle spasm (may make drowsy). Take at bedtime dulaglutide (TRULICITY) 1.5 mg/0.5 mL pen injector Inject 1.5 mg subcutaneously one time a week. famotidine (PEPCID) 20 mg tablet Take 1 tablet by mouth once daily. fluticasone (FLONASE) 50 mcg/actuation nasal spray Use 1 [place] in each nostril once daily. As needed HYDROcodone-Acetaminophen (NORCO) 7.5-325 mg per tablet Take 1 tablet by mouth every 8 hours as needed for pain for up to 7 days. hydrOXYzine pamoate (VISTARIL) 25 mg capsule Take 1 capsule by mouth three times daily as needed for anxiety. insulin needles, DISPOSABLE, (TRUEPLUS PEN NEEDLE) 31 gauge x 5/16" Use to inject insulin twice daily as directed. ketotifen fumarate (ZADITOR) 0.025 % (0.035 %) ophthalmic solution Use 1 Drop in both eyes twice daily. As needed LEVEMIR FLEXTOUCH U-100 INSULIN 100 unit/mL (3 mL) injection pen Inject 48 Units subcutaneously twice daily. Inject 44 units in the morning and 44 units in the evening as directed. Patient taking differently: Inject 48 Units subcutaneously twice daily. Taking 54-60 units BID while on steroids (as of 12/25/21) lisinopril 2.5 mg tablet Take 1 tablet by mouth once daily. loratadine (CLARITIN) 10 mg tablet Take 1 tablet by mouth once daily. meloxicam (MOBIC) 15 mg tablet Take 1 tablet by mouth once daily. for pain. Take with food. metFORMIN ER (GLUCOPHAGE XR) 500 mg 24 hr tablet Take 2 tablets by mouth twice daily with meals. Nicotine Polacrilex [address] 1 Lozenge between cheek and gum as needed. Max of 20 lozenges per day omeprazole (PRILOSEC) 20 mg capsule Take 1 capsule by mouth once daily. ondansetron (ZOFRAN) 4 mg tablet Take 1 tablet by mouth every 8 hours as needed for nausea/vomiting. simvastatin (ZOCOR) 40 mg tablet Take 1 tablet by mouth daily at bedtime. sodium chloride (SALINE NASAL) 0.65 % nasal spray Use 2-3 Sprays in the nose three times daily. tiZANidine (ZANAFLEX) 4 mg tablet Take one as needed every 6 to 8 hours as needed for back pain venlafaxine ER (EFFEXOR XR) 150 mg 24 hr capsule Take 1 capsule by mouth once daily. Objective: Exam: Last 3 Encounter BP Readings: Date: BP: 11/18/2021 120/82 06/25/2021 112/80 01/03/2021 106/72 Wt: 109.3 kg (241 lb) BMI: 37.19 kg/(m^2) LABS: Reviewed Lab Results Component Value Date HBA1C 6.7 11/29/2021 HBA1C 7.2 06/25/2021 HBA1C 9.0 01/10/2021 HBA1C 9.9 10/02/2020 CMP: Glucose 124 11/29/2021 BUN 10 11/29/2021 Creatinine 0.61 11/29/2021 Sodium 142 11/29/2021 Potassium 4.2 11/29/2021 Chloride 106 11/29/2021 CO2 21 11/29/2021 Protein, Total 6.8 11/29/2021 Albumin 4.1 11/29/2021 Calcium 9.5 11/29/2021 Alkaline Phosphatase 83 11/29/2021 Bilirubin, Total 0.3 11/29/2021 AST 31 11/29/2021 ALT 35 11/29/2021 eGFR >60 Lab Results Component Value Date CHOL 108 11/29/2021 CHOL 129 10/02/2020 LDL 58 11/29/2021 LDL 80 10/02/2020 HDL 35 11/29/2021 HDL 34 10/02/2020 TG 75 11/29/2021 TG 75 10/02/2020 The ASCVD Risk score (Dion GAITAN, et al., 2019) failed to calculate for the following reasons: The 2019 ASCVD risk score is only valid for ages 40 to 79 Albumin/Creat Ratio (mg/g) Date Value 11/29/2021 7 PHARMACOTHERAPY ASSESSMENT/PLAN: 1. 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 alf insulin use (HCC) - ICD9: 250.90, ICD10: E11.8 (primary diagnosis) A1c goal < 7%; controlled (last A1c 6.7%); SMBGs back at goal range; no issues with lows; tolerating regimen well; no med changes today; no f/up with PharmD scheduled at this time - will have patient reach back out on the as-needed basis; renal fxn and LFTs sufficient for use CONTINUE metformin ER 1000mg BID, Trulicity 1.5mg weekly, and Levemir 48 units BID Applauded on lifestyle modification efforts HbA1c: due May 2022 2. Tobacco abuse - ICD9: 305.1, ICD10: Z72.0 Contemplation stage of change; not interested in quitting right now due to dealing with back pain but plans to quit in the future Stressed importance of smoking cessation on health/longevity Advised to reach out to PharmD in future when ready to focus on smoking cessation Care Transition Back to PCP Our mutual patient, Charmaine Cochran, has achieved adequate control of their Diabetes during their care with us. We will not be scheduling further follow up with pharmacy at this time. They have beenencouraged to follow up with you for ongoing management. As always, you may refer Charmaine Cochran back to pharmacy for management in the future. Next PCP team appointment: 02/07 Thank you for utilizing primary care pharmacy services. Vasu Orozco PharmD, [facility] Primary Care Clinical Pharmacist The majority of the pharmacy visit (> 50%) was spent counseling and/or coordinating care for thepatient. interaction: telephonic time was 25 minutes. documented in this encounter[facility]22 Miscellaneous Notes* Telephone Encounter - Meg Lawton LPN - 01/06/2022 7:04 PM EDT Called and spoke to Patient re: results, verbalized understanding. Meg Lawton LPN documented in this encounterE[facility]08-[facility]22 History of Present illness Narrative* Kimber Slade, PT - 01/06/2022 10:58 AM EDT Episode Visit Count: 1 Therapist That Will Oversee The Plan Of Care: Kimber Slade Start of Care Date: 01/06/22 Onset Date: 12/20/21 Plan of Care Certification Date: 01/06/22 Next Certification Due Date: 02/17/22 Patient Identified by Name and Date of : Yes REHABILITATION AND SPORTS THERAPY PHYSICAL THERAPY EVALUATION PLAN OF CARE: Assessment: Charmaine Cochran presents with diagnosis of acute R side LBP without sciatica that interferes with sitting;rising from a chair;standing;walking;walking in the community;walking in the house;stair negotiation;bending;lifting;working;sleeping;bed mobility;weight bearing (car transfers) . She presents with impairments in ADL's, gait, independence in exercise, joint mobility, overall function, patient reported outcome measures, posture, range of motion, strength , stress management, symptom management, and tissue tenderness. Prognosis for therapy is Good due to: within-session changes; acuteness of condition;Prognosis may be limited due to limited tolerance to activity;clinical presentation . She will benefit from skilled therapy services to meet the goals established for this planof care as noted below. Goals for Episode of Care: created on 01/06/22 through 02/17/22 Independent in home exercises. Patient will decrease pain to 1-2/10 at rest and with functional activities to allow patient to improve ambulation, transfers, and standing tolerance for ADLs. Restore pain-free lumbar ROM to minimal to no limitation extension and flexion to allow for completing ADLs without limitation due to symptoms. Stand / Walk 30-45 min without pain/symptoms. Sleep through night without pain/symptoms. Sit 1 hours without pain/symptoms to allow for driving and seated ADLs without increased symptoms from baseline. Maintain proper sitting posture throughout session Patient will be able to tolerate sleeping without interruption for 6-8 hours without increased symptoms. Patient will be able to correct postural deviations independently in order to improve postural alignment of trunk during transfers, ambulation, sitting, standing, and functional activities. Knowledgeable regarding prophylaxis. Patient Goals: reduce symptoms, complete ADLs/house tasks without limitation due to low back, sacrum, and pelvic pain Planned Interventions, Frequency, and Duration: Current Frequency: 2x/week Duration: 6 weeks Total Number of Visits Planned: 12 Planned Treatment Interventions: Therapeutic exercise (36473);Neuromuscular re- education (03603);Manual therapy (22746);Therapeutic activities (31220);Self- half-way management (62572);Gait Training (44127);Patient/Family/Caregiver Education PLAN FOR NEXT VISIT: assess symptom response to pelvic symmetry correction and self management of symptoms at home with self correction hip isometrics in hook lying. Complete lumbar and hip AROM assessment if activity tolerance has improved Patient demonstrates good understanding of plan of care and treatment. The above goals and plan of care were discussed and agreed upon by patient/family. Transfer of Care Due To: Specialty Service Patient transferring care to: Coni Chicas, PT, DPT SUBJECTIVE: Charmaine Cochran is a 32 year old female seen today for for increased symptoms in the sacrum, pubic symphysis, and R lower back the evening of 12/20/21 following a chiropractor visit. Pt. was being seen by chiropractor earlier that day for increased chronic "sciatic" symptoms in the R lower back that had onset about a month before that visit. Pt. had not been seen by chiropractic priorfor 1 year. Pt. was seen at [facility] ED 12/20/21, 12/23 and 01/03/22 for 10/10 pain. Pt. has been prescribed pain medications including dilaudid and vicodin in the ER, and most recently meloxicam and flexeril at PCP follow up visit which pt. reports "doesn't even touch" the pain. Pt. has also been referred to the spine center and had an x-ray today. Pt. mentions pain with bowel movements and describes it being similar to child in the pelvic region. Pt. will be transferred to a pelvic floor PTfor an evaluation next availiable visit 01/28/22. 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 Cancer Clinical Reasoning: No identified risk factors. Infection Clinical Reasoning: No identified risk factors. Cauda Equina Syndrome Clinical Reasoning: No identified risk factors. Red Flags - Cervical Cancer Clinical Reasoning: No identified risk factors. Infection Clinical Reasoning: No identified risk factors. Spine History Symptoms Location at Onset: Back Symptoms Since Onset: Worsening Pain is Worse Always: Standing;Walking;Prolonged positions;Rising;Bending;On the Move;AM Pain is Better Always: As the day progresses (hook lying) Sleeping Position: Side lying right Sleep Affected by Pain: Pain awakens;Pain keeps from falling asleep Pain: Pain Pain Level: 9 Pain Location: Sacrum;Low Back/Lumbar Spine - Right;Pubic Description: (no radiation in to the legs) Frequency: Continuous Post Treatment Pain Post Treatment Pain Level: 7 Post Treatment Pain Location: Sacrum;Low Back/Lumbar Spine - Right;Pubic PROMIS Scales Higher is Better 09/18/2021 11/17/2021 01/04/2022 Phys Func - Score - - 35 (moderate dysfunction) Phys Func - Percentile - - 7 % Social Roles - Score - - 33 (moderate dysfunction) Social Role - Percentile - - 4 % GH Physical - Score 42.3 (Good) 42.3 (Good) - GH Physical - Percentile 22 % 22 % - GH Mental - Score 50.8 (Very Good) 50.8 (Very Good) - GH Mental - Percentile 53 % 53 % - Self-Eff Symptom - Score - - 32 (Low) Self-Eff Symptom - Percentile - - 4 % T-scores: mean of general population = 50. 5 points is clinically meaningfully difference Percentiles provide an indication of how the patient's score ranks in relation to the general population. Higher percentile rankings indicate better function/quality of life. 50th percentile is the average of the general population and indicates half of respondents had a worse score. Lower is Better 01/04/2022 Fatigue - Score 52 (within normal limits) Fatigue - Percentile 42 % T-scores: mean of general population = 50. 5 points is clinically meaningfully difference Percentiles provide an indication of how the patient's score ranks in relation to the general population. Higher percentile rankings indicate better function/quality of life. 50th percentile is the average of the general population and indicates half of respondents had a worse score. OBJECTIVE MEASURES WITH LEVEL OF FUNCTION: Cognition Cognition: Follows Commands Vision Vision Deficits: Wears corrective lenses Posture / Alignment Posture: Slump;Increased thoracic kyphosis;Forward head Lumbo - Pelvic Alignment: symmetry at iliac crest, unable to palpate B ASIS, elevated L medial maleolus and plantar L heel compared to R. reports no increased symptoms with L hip IR and distraction mob grade III. LE Observations: shorter LLE Sitting Posture: Perched Effects of Posture Correction: worse Sensation - Lumbar Sensation: Grossly Intact Lumbar Spine AROM Lumbar Spine AROM Comments: NT due to severe pain, unable to tolerate static standing in place Spine Joint Mobility Spine Joint Mobility : Lumbar/Thoracic Functional Strength Functional Strength: Rolling;Sit<>stand Rolling: log roll tolerated Sit/Stand: with BUE Special Tests - Hip and Spine Hip and Spine Special Tests: Active SLR;SLR Test SLR Test: Left Negative;Right Negative Active SLR: Right Negative;Left Negative Special Test Comments: unable to pelvic tilt due to increased symptoms pubic region Gait Gait: Independent Gait Distance (feet): 100 Gait Device: None Gait Deviations: General Deviations General Deviations/Observations: Antalgic gait;Yudi decreased;Flexed trunk posture;Non-functional gait speed;Step length decreased;Wide base of support Gait Observation: improved to heel strike and functional speed with flexed lumbar posture at end ofevaluation following MET pelvic symmetry correction Education: Education Learning Preferences: Performance;Printed Materials;Explanation;Demonstration Barriers: Emotions Learning/educational needs: Home exercise program;Plan of Care;Posture;Gait Training Education Provided: Yes, see treatment interventions for education provided Education Provided To: Patient Education Mode/Type: Demonstration;Explanation/Discussion;Literature/Printed Materials;Performance Response to Education/Teach Back: States/Identifies;Return Demonstration TREATMENT: PT Treatment Interventions: Self-Longterm Management;Manual Therapy Evaluation Evaluation Therapeutic Exercise: 1: *self pelvic symmetry correction: hook lying L KTC hip flexor isometric with RLE foot on table HS activation 3 sets of 10 sec hold, repeated rounds with sets of 3x10 sec as needed for symptoms 3-5times thorughout the day to manage pain. Skilled Intervention: Patient was educated in proper exercise technique and purpose for exercises. Skilled judgment was provided in selection of appropriate interventions. Provided written instruction for home exercise program to facilitate proper performance and compliance. Correct performance of therapeutic exercises was facilitated with verbal, visual, and tactile cuing. Additional time necessary for providing education and HEP due to initial evaluation and postive response. Educated patient on rationale for performing exercises in regards to decreasing fatigue , increase ease of ADL, and ROM and function . Patient education as noted. Manual Therapy: 1: *MET to correct LLE short leg length. hook lying, LLE knee extended, R knee flexed 2 rounds, 3 sets of 10 sec isometric R HS and L hip flexor activation, submaximal effort (reduced symptoms from 8/10 to 6/10. denies low back pain, pain in sacrum and pubic) Skilled Intervention: Manual skills to improve joint mobility, ROM, and decrease pain. Utilized anatomy knowledge of the therapist, and assessment of patient's response to intervention. Self-Longterm Management: 1: *log roll education and print out 2: *postural education 3: *education to see ED if she ever experiences loss of BB control, currently denies 4: *recommend pelvic floor PT specialty evaluation Skilled Intervention: Skilled judgment in the selection of proper modification for activity of daily living/home management based on clinical presentation, deficits, and needs. Physical assistance was provided during education for modifications and patient safety. Provided written instruction for activities of daily living techniques to facilitate proper performance and compliance. Reviewed patient specific diagnosis in relation to activities of daily living/home management. Activity progression based on professional judgement. Moderate verbal cues for maintaining neutral spine alignment. Instructed on proper lifting and carrying techniques with importance of core activation. Provided written instruction for home program to facilitate proper performance and compliance. Correct performance of home program was facilitated with verbal, visual, and tactile cueing. Billing * Evaluation Low Complexity: 1 Unit Therapeutic Exercise Treatment Minutes: 5 Manual TherapyTreatment Minutes: 10 Self-Care/Home Management Treatment Minutes: 10 Total Treatment Time Minutes (timed/untimed): 45 Kimber Slade PT documented in this encounterE[facility]08-15-2022 History of Present illness Narrative* Elana Boyd RT(R) - 01/06/2022 10:30 AM EDT Radiology Service Progress Note PATIENT NAME: Charmaine DATE OF SERVICE: January 06, 2022 TIME: 10:49 AM PATIENT IDENTITY VERIFICATION COMPLETED USING TWO (2) IDENTIFIERS: Name and Date of confirmedby patient verbally. FALL SCREENING: Has the patient had 2 falls in the last year or 1 fall with injury or currently using an Ambulatory Assistive Device (Walker, Cane, Wheelchair, Crutches, etc.)? No PATIENT GENDER DATA: Female. status: : No status: NO. PATIENT RELEVANT IMPLANT DATA REVIEWED: Not Applicable RADIOLOGY DEPARTMENT: General X-ray: Exam(s) Completed: Spine X-Ray(s): Lumbar AP / LAT / L5-S1 PERIPHERAL IV DATA: Not applicable SIGNED BY: RT Lauro(R) January 06, 2022 10:49 AM documented in this encounterElyria [facility]08-15-2022 Miscellaneous Notes* Telephone Encounter - Fercho Perez APRN.CNS - 01/06/2022 7:19 AM EDT RX: meloxicam and cyclobenzaprine at her last visit here. * Telephone Encounter - Junior Jeong MD - 01/03/2022 7:42 PM EDT Received call from [facility] ER doctor to let me know that patient had been to ER frequently for pain. I saw that she had been to ER 12/20, 12/23 and then today she is there now. Reviewed that saw Fercho 12/30 for virtual visit and that she was set up for Xray Thursday and PT Thursday. Also [facility] 01/30 Noted that she has appointment with me in January but I have only done a telephone visit with her04/26/21. She has been in a couple times to see Fercho and had some VVs too. documented in this encounterElyria [facility]08-08-2022 History of Present illness Narrative* Fercho Perez APRN.SHREDDED FILLER CUTTER OPERATOR - 12/30/2021 2:20 PM EDT Video visit. In [place]. Patient only. Consent of the visit. SUBJECTIVE: HEPATITIS B(1 of 3 - 3-dose series) Never done PNEUMOCOCCAL(1 - PCV) Never done DILATED RETINAL EXAM due on 01/03/2022 FOX Cochran is a 31 year old female. PMH significant for ACTIVE PROBLEM LIST Diabetes Type 2, Controlled (Hcc) Anxiety State Mixed Hyperlipidemia History of Abdominal Hernia History of Atrial Fibrillation Gastroesophageal Reflux Disease History of Asthma HPI excerpted from previous visit. She presents today to follow up regarding diabetes. She notes feeling well. Notes that when checking blood glucose at home they have been well controlled recently. No adverse effects of medication noted. He has been adhering to diet. He has been adhering with portion control. Notes she has lost weight. Notes she has been exercising, bike riding. Since last here she has worked with Dr. Forbes regarding diabetes. Notes improved BS readings at home, no lows. Without report of excessive thirst or increased frequency of urination, chest pain or dyspnea , numbness, tingling or pain in extremities, new or unusual visual symptoms, low sugar/hypoglycemic reactions, weight loss/gain, lightheadedness/dizziness and bowel changes/loose stools. Patient's last HgA1C was Hemoglobin A1C (%) Date Value 11/29/2021 6.7 06/25/2021 7.2 01/10/2021 9.0 ) She notes GERD currently well controlled with portion size reduction, weight loss. She notes less hernia pain as well. Without report of headache, chest pain, palpitations, dyspnea, peripheral edema, orthopnea, fatigueor PND. Last 14 Encounter BP Readings: Date: BP: 11/18/2021 120/82 06/25/2021 112/80 01/03/2021 106/72 10/23/2020 110/72 10/05/2020 112/68 10/02/2020 120/82 Presents today for emergency department follow-up. She was seen at [facility] ER, reports was seen for back pain worse with bending over and lightheaded dizziness with the pain. She presented to the emergency department on December 23, 2021 with report of right-sided lumbar pain and right hip pain. She reported she was diagnosed with SI dysfunction from her chiropractor. She reported an adjustment by her chiropractor on the same day that she was seen in the emergency department. She had generalized tenderness in her back with twisting and side bending. She was treated with Dilaudid. She was sent home with Motrin and Percocet. Chest x-ray was completed and showed no acute process, no significant change from previous. Today reports back pain with walking and bending over. Notes feeling improved following ER visit. She was treated with methylprednisolone with improvement. States tripped on a cat yesterday, now back is worse again. States taking tizanidine 4mg States ibuprofen 800 mg this a.m, "didn't do anything" Was given methylprednisolone in the emergency department to take at home. BS have been FBS 85; 185 after a meal on this medication Back pain: Right-sided low back pain acute, nonradiating, worse with movement She reports lumbar x-ray completed in the ER however not viewable in care everywhere. She notes back pain occurred within hours of her chiropractic visit, does not plan to return. Physical therapy: No current but interested in this. States she was advised by ER provider that she should follow-up with social security specialist. No alarm symptoms reported. Review of Systems Constitutional: Negative. Respiratory: Negative. Cardiovascular: Negative. Endocrine: Negative. Musculoskeletal: Positive for back pain. Objective There were no vitals taken for this visit. Physical Exam Vitals and nursing note reviewed. Constitutional: Appearance: Normal appearance. HENT: Head: Normocephalic and atraumatic. Eyes: Conjunctiva/sclera: Conjunctivae normal. Musculoskeletal: Comments: + back pain Neurological: Mental Status: She is alert and oriented to person, place, and time. Mental status is at baseline. ALLERGIES Allergen Reactions Codeine Other: See Comments Jardiance [Empaglif* Intolerance Body aches, headaches earache Nubain [Nalbuphine] Vomiting Percocet [Oxycodone* Vomiting MEDICATION: meloxicam (MOBIC) 15 mg tablet Take 1 tablet by mouth once daily. for pain. Take with food. cyclobenzaprine (FLEXERIL) 10 mg tablet Take 1 tablet by mouth at bedtime as needed for muscle spasm (may make drowsy). Take at bedtime famotidine (PEPCID) 20 mg tablet Take 1 tablet by mouth once daily. omeprazole (PRILOSEC) 20 mg capsule Take 1 capsule by mouth once daily. hydrOXYzine pamoate (VISTARIL) 25 mg capsule Take 1 capsule by mouth three times daily as needed for anxiety. simvastatin (ZOCOR) 40 mg tablet Take 1 tablet by mouth daily at bedtime. Nicotine Polacrilex 4 mg lozenge Place 1 Lozenge between cheek and gum as needed. Max of 20 lozenges per day ketotifen fumarate (ZADITOR) 0.025 % (0.035 %) ophthalmic solution Use 1 Drop in both eyes twice daily. As needed alcohol swabs (ALCOHOL PADS) Apply 1 application to affected area once daily. venlafaxine ER (EFFEXOR XR) 150 mg 24 hr capsule Take 1 capsule by mouth once daily. LEVEMIR FLEXTOUCH U-100 INSULIN 100 unit/mL (3 mL) injection pen Inject 48 Units subcutaneously twice daily. Inject 44 units in the morning and 44 units in the evening as directed. (Patient taking differently: Inject 48 Units subcutaneously twice daily. Taking 54-60 units BID while on steroids (as of 12/25/21) ) Chlorhexidine Gluconate (PERIDEX) 0.12 % solution twice daily. (Patient not taking: Reported on 11/18/2021 ) loratadine (CLARITIN) 10 mg tablet Take 1 tablet by mouth once daily. dulaglutide (TRULICITY) 1.5 mg/0.5 mL pen injector Inject 1.5 mg subcutaneously one time a week. insulin needles, DISPOSABLE, (TRUEPLUS PEN NEEDLE) 31 gauge x 5/16" Use to inject insulin twice daily as directed. lisinopril 2.5 mg tablet Take 1 tablet by mouth once daily. tiZANidine (ZANAFLEX) 4 mg tablet Take one as needed every 6 to 8 hours as needed for back pain sodium chloride (SALINE NASAL) 0.65 % nasal spray Use 2-3 Sprays in the nose three times daily. metFORMIN ER (GLUCOPHAGE XR) 500 mg 24 hr tablet Take 2 tablets by mouth twice daily with meals. aspirin, enteric coated (ASPIRIN, ENTERIC COATED) 81 mg EC tablet Take 1 tablet by mouth once daily. ondansetron (ZOFRAN) 4 mg tablet Take 1 tablet by mouth every 8 hours as needed for nausea/vomiting. blood sugar diagnostic (BLOOD GLUCOSE TEST) test strip Test blood sugar(s) 3 times daily. Dx: Type 2 DM - Controlled E11.9 Insulin: Yes Blood-Glucose Meter monitoring kit Glucose Meter of Choice - Kit - Dx: Type 2 DM - Controlled E11.9- Test 3 times daily -Insulin: Yes fluticasone (FLONASE) 50 mcg/actuation nasal spray Use 1 [place] in each nostril once daily. As needed albuterol HFA (VENTOLIN HFA) 90 mcg/actuation inhaler Inhale 2 Puffs as instructed. PAST MEDICAL HISTORY Diagnosis Date Anxiety state Cardiac arrest (HCC) With subsequent A. fib after initiation of anesthesia June 2016, converted with diltiazem after11 hours, she follows with cardiology Diabetes type 2, controlled (HCC) GERD (gastroesophageal reflux disease) History of depression Mixed hyperlipidemia Morbid obesity (HCC) Tobacco dependence Social History Tobacco Use Smoking status: Every Day Packs/day: 0.50 Years: 20.00 Pack years: 10.00 Types: Cigarettes Smokeless tobacco: Never Substance Use Topics Alcohol use: Not Currently Drug use: Never Component Latest Ref Rng & Units 10/02/2020 WBC 3.70 - 11.00 k/uL 11.25 (H) RBC 3.90 - 5.20 m/uL 5.99 (H) Hemoglobin 11.5 - 15.5 g/dL 16.3 (H) Hematocrit 36.0 - 46.0 % 50.1 (H) MCV 80.0 - 100.0 fL 83.6 MCH 26.0 - 34.0 pG 27.2 MCHC 30.5 - 36.0 g/dL 32.5 RDW-CV 11.5 - 15.0 % 13.7 Platelet Count 150 - 400 k/uL 262 MPV 9.0 - 12.7 fL 10.3 Neut% % 63.0 Abs Neut (ANC) 1.45 - 7.50 k/uL 7.08 Lymph% % 29.3 Abs Lymph 1.00 - 4.00 k/uL 3.30 [place]% % 4.8 Abs [place] <0.87 k/uL 0.54 Eosin% % 2.3 Abs Eosin <0.46 k/uL 0.26 Baso% % 0.6 Abs Baso <0.11 k/uL 0.07 Nucleated Reds 0 /100 WBC 0.0 Absolute nRBC <0.01 k/uL <0.01 Diff Type Auto Diff Protein, Total 6.3 - 8.0 g/dL 7.4 Albumin 3.9 - 4.9 g/dL 4.5 Calcium 8.5 - 10.2 mg/dL 9.4 Bilirubin, Total 0.2 - 1.3 mg/dL 0.3 Alkaline Phosphatase 34 - 123 U/L 112 AST 13 - 35 U/L 19 Glucose 74 - 99 mg/dL 272 (H) BUN 7 - 21 mg/dL 11 Creatinine 0.58 - 0.96 mg/dL 0.58 Sodium 136 - 144 mmol/L 136 Potassium 3.7 - 5.1 mmol/L 4.3 Chloride 97 - 105 mmol/L 101 CO2 22 - 30 mmol/L 21 (L) Anion Gap 9 - 18 mmol/L 14 ALT 7 - 38 U/L 23 eGFR- >60 eGFR-All Other Races . >60 Total Cholesterol, Nonfasting <200 mg/dL 129 Triglycerides, Nonfasting <150 mg/dL 75 HDL Cholesterol, Nonfasting >39 mg/dL 34 (L) LDL Cholesterol, Nonfasting <100 mg/dL 80 Non HDL Cholesterol, Nonfasting <130 mg/dL 95 VLDL Cholesterol, Nonfasting <30 mg/dL 15 Total Chol/HDL Ratio, Nonfasting <5.10 mg/dL 3.79 LDL/HDL Ratio, Nonfasting <2.54 mg/dL 2.35 HIV 12 Combo (Ag/Ab) Non Reactive Non Reactive HIV-1/2 AB Test Not Indicated HIV Interpretation Negative Hemoglobin A1C 4.3 - 5.6 % 9.9 (H) Estimated Average Glucose mg/dL 237 Hep C Antibody IA Negative Negative hCG Quantitative, Blood <5.0 mU/mL <0.6 ASSESSMENT/PLAN: 1. 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) - ICD9: 250.90, ICD10: E11.8 (primary diagnosis) Check A1c today and in three months She notes improved control, continue with current treatment unchanged, continue with lisinopril forrenal protection at current dose - COMP METABOLIC PANEL - HGB A1C - LIPID PANEL BASIC - ALBUMIN/CREAT RATIO RND UR 2. Encounter for immunization - ICD9: V03.89, ICD10: Z23 - ALCOHOL SWABS - PNEUMOCOCCAL VACCINE (PREVNAR 20) - HEPATITIS B VACCINE, ADULT AGE 20+, IM 3. Screening for cervical cancer - ICD9: V76.2, ICD10: Z12.4 4. Well woman exam with routine gynecological exam - ICD9: V72.31, ICD10: Z01.419 Followed at [facility], Dr Boyd. 5. Gastroesophageal reflux disease, unspecified whether esophagitis present - ICD9: 530.81, ICD10: K21.9 Notes improved control recently with decreased portion sizes and current medications. Continue unchanged for now. Continue to monitor 6. Mixed hyperlipidemia - ICD9: 272.2, ICD10: E78.2 Recommend a plant based diet such as Mediterranean diet with plenty of vegetables, fruits,whole grains, fish, chicken, turkey or plant proteins and routine exercise such as walking Keep 6 mo follow up Junior Jeong MD; labs prior Ferhco Perez APRN.JAROD Medical Decision Making: Medical Decision Making Level: 1 - N/A documented in this encounterE[facility] History of Present illness Narrative* Vasu Orozco, [facility] - 12/25/2021 2:00 PM EDT Primary Care Pharmacy Visit CC (Reason for Consult): Diabetes Goal: A1c < 7% Collaborating Provider: Dr. Manoj MD Last Provider Visit: 11/18/2021 Charmaine Cochran is a 31 year old female presenting for follow up visit by telephone. Patient consents to pharmacy collaborative practice agreement. Patient is presenting today for follow up pharmacotherapy management appointment for diabetes. At last PCP appt, no medication changes were made and patient was encouraged to keep up her diet and exercise regimen. At last PharmD visit on 12/05, no medication changes to her DM pharmacotherapy regimenwere made, NRT with lozenges 4 mg PRN for cravings (max 20 lozenges/day) was initiated and patient was counseled on habit modification startegies. Patient was recently in the ER d/t limiting back pain. She received a prescription for Methylprednisolone 4 mg > 21 tablets. She contacted PharmD to see if insulin adjustment is needed. Subjective: HPI: Patient reports she received steroids, back pain is improved a lot though still in a lot of pain. Seeing SHREDDED FILLER CUTTER OPERATOR tomorrow for additional pain medicine. Has noticed the steroids are raising her BGs. On a Medrol dose pack, has had 2 out of 7 days of medications. Said her back pain started last Thursday, got really bad the following day. On Thursday pain was so bad she went to ED. Hasn't been checking her BG during this time because pain was excruciating. "Sugars were doing great before this." Has had bad dry mouth recently. No change in frequency of urination. Energy level is not good due to pain. No vision changes. No new or worsening numbness/tingling of hands or feet. Current DM Medications: Metformin ER 500mg tabs - 1000mg BID Dulaglutide (Trulicity) 1.5 mg weekly Insulin detemir (Levemir) 48 units BID Past DM medications: Jardiance Januvia Glyburide Current HTN Medications: Lisinopril 2.5mg daily GLYCEMIC CONTROL: Glucometer present at visit: No SMBG s: Date Fasting AM 2 hr PP Before Lunch 2 hr PP Before Dinner 2 hr PP Bedtime 12/25 275 12/24 179 Hypoglycemia: none Preventative Medications: On HUBER/ARB: Yes On Statin: Yes ROS: Patient denies CP, SOB, HUITRON, blurred vision, dizziness or lightheadedness Patient denies symptoms of hypoglycemia (sweating, anxiety, palpitations, hunger, and tremor) Patient denies symptoms of hyperglycemia (polyuria, polydipsia, polyphagia) Patient denies potential medication adverse effects DIET/EXERCISE/SOCIAL Hx: Not eating as much due to pain Unable to ride her bike MEDICATIONS: Pill bottles are not present Adherence: denies missed doses [facility] Affordability: no issues Diabetes supplies: [employer] Organization System: Pill boxes (AM and PM) ACTIVE PROBLEM LIST Diabetes Type 2, Controlled (Hcc) Anxiety State Mixed Hyperlipidemia History of Abdominal Hernia History of Atrial Fibrillation Gastroesophageal Reflux Disease History of Asthma PAST MEDICAL HISTORY Diagnosis Date Anxiety state Cardiac arrest (HCC) With subsequent A. fib after initiation of anesthesia June 2016, converted with diltiazem after11 hours, she follows with cardiology Diabetes type 2, controlled (HCC) GERD (gastroesophageal reflux disease) History of depression Mixed hyperlipidemia Morbid obesity (HCC) Tobacco dependence Past medical, family and social history reviewed and updated. ALLERGIES Allergen Reactions Codeine Other: See Comments Jardiance [Empaglif* Intolerance Body aches, headaches earache Nubain [Nalbuphine] Vomiting Percocet [Oxycodone* Vomiting Medication List Medication Directions Comments Action/Plan albuterol HFA (VENTOLIN HFA) 90 mcg/actuation inhaler Inhale 2 Puffs as instructed. alcohol swabs (ALCOHOL PADS) Apply 1 application to affected area once daily. Supplies aspirin, enteric coated (ASPIRIN, ENTERIC COATED) 81 mg EC tablet Take 1 tablet by mouth once daily. blood sugar diagnostic (BLOOD GLUCOSE TEST) test strip Test blood sugar(s) 3 times daily. Dx: Type 2 DM - Controlled E11.9 Insulin: Yes Supplies Blood-Glucose Meter monitoring kit Glucose Meter of Choice - Kit - Dx: Type 2 DM - Controlled E11.9- Test 3 times daily -Insulin: Yes Supplies Chlorhexidine Gluconate (PERIDEX) 0.12 % solution twice daily. Patient not taking: Reported on 11/18/2021 dulaglutide (TRULICITY) 1.5 mg/0.5 mL pen injector Inject 1.5 mg subcutaneously one time a week. Discontinued: 12/24/2021 3:59 PM famotidine (PEPCID) 20 mg tablet Take 1 tablet by mouth once daily. fluticasone (FLONASE) 50 mcg/actuation nasal spray Use 1 [place] in each nostril once daily. As needed Discontinued: 12/24/2021 2:44 PM hydrOXYzine pamoate (VISTARIL) 25 mg capsule Take 1 capsule by mouth three times daily as needed for anxiety. ibuprofen (MOTRIN) 800 mg tablet Take 800 mg by mouth every 6 hours as needed (headache). insulin needles, DISPOSABLE, (TRUEPLUS PEN NEEDLE) 31 gauge x 5/16" Use to inject insulin twice daily as directed. Supplies ketotifen fumarate (ZADITOR) 0.025 % (0.035 %) ophthalmic solution Use 1 Drop in both eyes twice daily. As needed LEVEMIR FLEXTOUCH U-100 INSULIN 100 unit/mL (3 mL) injection pen Inject 48 Units subcutaneously twice daily. Inject 44 units in the morning and 44 units in the evening as directed. lisinopril 2.5 mg tablet Take 1 tablet by mouth once daily. loratadine (CLARITIN) 10 mg tablet Take 1 tablet by mouth once daily. metFORMIN ER (GLUCOPHAGE XR) 500 mg 24 hr tablet Take 2 tablets by mouth twice daily with meals. Nicotine Polacrilex [address] 1 Lozenge between cheek and gum as needed. Max of 20 lozenges per day Discontinued: 12/24/2021 2:44 PM omeprazole (PRILOSEC) 20 mg capsule Take 1 capsule by mouth once daily. ondansetron (ZOFRAN) 4 mg tablet Take 1 tablet by mouth every 8 hours as needed for nausea/vomiting. simvastatin (ZOCOR) 40 mg tablet Take 1 tablet by mouth daily at bedtime. sodium chloride (SALINE NASAL) 0.65 % nasal spray Use 2-3 Sprays in the nose three times daily. tiZANidine (ZANAFLEX) 4 mg tablet Take one as needed every 6 to 8 hours as needed for back pain venlafaxine ER (EFFEXOR XR) 150 mg 24 hr capsule Take 1 capsule by mouth once daily. Objective: Exam: Last 3 Encounter BP Readings: Date: BP: 11/18/2021 120/82 06/25/2021 112/80 01/03/2021 106/72 Wt: 109.3 kg (241 lb) BMI: 37.19 kg/(m^2) LABS: Reviewed Lab Results Component Value Date HBA1C 6.7 11/29/2021 HBA1C 7.2 06/25/2021 HBA1C 9.0 01/10/2021 HBA1C 9.9 10/02/2020 CMP: Glucose 124 11/29/2021 BUN 10 11/29/2021 Creatinine 0.61 11/29/2021 Sodium 142 11/29/2021 Potassium 4.2 11/29/2021 Chloride 106 11/29/2021 CO2 21 11/29/2021 Protein, Total 6.8 11/29/2021 Albumin 4.1 11/29/2021 Calcium 9.5 11/29/2021 Alkaline Phosphatase 83 11/29/2021 Bilirubin, Total 0.3 11/29/2021 AST 31 11/29/2021 ALT 35 11/29/2021 eGFR >60 Lab Results Component Value Date CHOL 108 11/29/2021 CHOL 129 10/02/2020 LDL 58 11/29/2021 LDL 80 10/02/2020 HDL 35 11/29/2021 HDL 34 10/02/2020 TG 75 11/29/2021 TG 75 10/02/2020 The ASCVD Risk score (Miladis CLIFTON Jr., et al., 2013) failed to calculate for the following reasons: The 2013 ASCVD risk score is only valid for ages 40 to 79 Albumin/Creat Ratio (mg/g) Date Value 11/29/2021 7 PHARMACOTHERAPY ASSESSMENT/PLAN: 1. 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 alf insulin use (HCC) - ICD9: 250.90, ICD10: E11.8 (primary diagnosis) A1c goal < 7%; controlled (last A1c 6.7%); SMBGs minimal to review but are elevated since havingsignificant back pain and being on Medrol steroid pack (has 4 days remaining); FBG today was in 200s; does have increased dry mouth but no other noticeable sx of hyperglycemia; discussed short-term mealtime insulin but doesn't make sense since steroids are only temporary; will have patient increase insulin and closely monitor BGs; renal fxn and LFTs sufficient for use INCREASE Levemir to 54 units BID. If BGs still >200 on Thursday, increase to 58-60 units BID. To cut back dose as BGs start to improve once off steroid CONTINUE metformin ER 1000mg BID and Trulicity 1.5mg weekly Encouraged to drink plenty of water, really watch carb intake, and monitor BGs 3-4x/day while on steroids. Advised to reach out to PharmD via [employer] with status update next week. Patient informed I will beout of the office and returning on Thursday, 12/31. 2. Tobacco abuse - ICD9: 305.1, ICD10: Z72.0 Still working on cutting back, will f/up at PharmD appt later this month Patient is scheduled to see SHREDDED FILLER CUTTER OPERATOR on 12/26. Patient to have PharmD f/u on 01/16. Patient verbalized understanding of instructions. Vasu Orozco PharmD, BCPS Primary Care Clinical Pharmacist The majority of the pharmacy visit (> 50%) was spent counseling and/or coordinating care for thepatient. interaction: telephonic time was 15 minutes. documented in this encounterElyria [facility]08-03-2022 Miscellaneous Notes* Telephone Encounter - Yancy Liriano MA - 12/25/2021 8:57 AM EDT Follow up on patient's symptoms. Pain is starting to get better but still having issues, scheduled ED f/u with Fercho 12/26. Will obtain Devin thomas for office visit. Yancy Liriano MA * Telephone Encounter - Fercho Perez APRN.CNS - 12/23/2021 4:02 PM EDT noted, check for hospital records, schedule follow up as needed * Telephone Encounter - Eliza Harden LPN - 12/23/2021 10:44 AM EDT Patient called and stated that Thursday she went to [facility] ER for back pain. She wanted it noted that she is returning to the ER for back pain that has worsened today after bending over. Complaining of light headedness/dizziness with the pain at this time. documented in this encounterEly[facility]08-02-2022 Miscellaneous Notes* Telephone Encounter - Meg Lawton LPN - 12/24/2021 10:59 AM EDT Patient has been identified by name and date of : Yes Patient phones for refill(s): Pending Prescriptions Disp Refills OMEPRAZOLE 20 MG CAPSULE,DELAYED RELEASE 90 capsule 3 Sig: Take 1 capsule by mouth once daily. TATYANA: No HYDROXYZINE PAMOATE 25 MG CAPSULE 30 capsule 1 Sig: Take 1 capsule by mouth three times daily as needed for anxiety. TATYANA: No Date of last office visit in primary care: 08/18/2021 3 month follow-up: 02/07/2022 Last 2 Encounter Wt Readings: Date: Wt: 11/18/2021 109.3 kg (241 lb) 06/25/2021 109.8 kg (242 lb) Previous labs/tests for medication: Not applicable Please advise. Thank you. Meg Lawton LPN documented in this encounterElyria [facility] Hospital08-02-2022 Miscellaneous Notes* Telephone Encounter - Park Vicente Ma - 12/24/2021 8:22 AM EDT Last OV: 11/18/21 Next OV: 02/07/22 documented in this encounterElyria [facility]07-29-2022 Miscellaneous Notes* Telephone Encounter - Zahraa Kothari RN - 12/20/2021 12:43 PM EDT Protocol recommends ER or pcp triage. Patient agreeable to ER. States she will go to [facility] ER, her friend is there to help her. Reason for Disposition Unable to walk Answer Assessment - Initial Assessment Questions 1. ONSET: Yesterday morning saw chiropracter and had adjustment done. Last night pain started at 5 pm. Was just sore then. This morning could barely walk. Chiropracter told her it's something to do with SI joints. 2. LOCATION: Around tailbone and hips. Even hurts when cough or sneeze. 3. SEVERITY 10/10. Excruciating and unable to do any normal activities. Cant bend forward or side to side. 4. PATTERN: Constant. Took tizanidine this morning and didn't touch the pain. 5. RADIATION No, just lower back and hips. 6. CAUSE: Maybe something to do with the adjustment yesterday. 7. BACK OVERUSE: "Any recent lifting of heavy objects, strenuous work or exercise?" Last Thursday went to race, sitting on bleachers which caused pain. 8. MEDICATIONS: Tizanidine- did not help. Tried ibuprofen - it didn't help. 9. NEUROLOGIC SYMPTOMS: No weakness / numbness /problems with bowel/bladder. 10. OTHER SYMPTOMS: No other symptoms. 11. : No Protocols used: BACK [id number] documented in this encounterElyria [facility] Hospital07-22-2022 Miscellaneous Notes* Telephone Encounter - Zahraa Kothari RN - 12/13/2021 11:52 AM EDT Patient reports she is at the pharmacy now, and would like to pick it up now. Patient has been identified by name and date of : Yes Patient phones for refill(s): Pending Prescriptions Disp Refills SIMVASTATIN 40 MG TABLET 30 tablet 1 Sig: Take 1 tablet by mouth daily at bedtime. TATYANA: No Date of last office visit with pcp: 11-18-21. Next appt; 02-07-22 Last 2 Encounter Wt Readings: Date: Wt: 11/18/2021 109.3 kg (241 lb) 06/25/2021 109.8 kg (242 lb) Previous labs/tests for medication: Cholesterol: HDL Cholesterol (mg/dL) Date Value 11/29/2021 35 HDL Cholesterol, Nonfasting (mg/dL) Date Value 10/02/2020 34 LDL Cholesterol (mg/dL) Date Value 11/29/2021 58 LDL Cholesterol, Nonfasting (mg/dL) Date Value 10/02/2020 80 ALT (U/L) Date Value 11/29/2021 35 10/02/2020 23 Non HDL Cholesterol, Nonfasting (mg/dL) Date Value 10/02/2020 95 Non HDL Cholesterol (mg/dL) Date Value 11/29/2021 73 Please advise. Thank you. Zahraa Kothari RN documented in this encounterElyria [facility] Hospital07-15-2022 Miscellaneous Notes* Telephone Encounter - Paula Howard APRN.CNP - 12/06/2021 1:48 PM EDT addressed in refill encounter Paula Howard APRN.CNP documented in this encounterElyria [facility] Hospital07-14-2022 History of Present illness Narrative* Vasu Orozco, [facility] - 12/05/2021 1:00 PM EDT Primary Care Pharmacy Visit CC (Reason for Consult): Diabetes Goal: A1c < 7% Collaborating Provider: JAROD Drake Last Provider Visit: 11/18/21 Charmaine Cochran is a 31 year old female presenting for follow up visit by telephone. Patient consents to pharmacy collaborative practice agreement. Patient is presenting today for f/up pharmacotherapy management appointment for diabetes. At [facility] visit in September 2020, pt instructed to complete labs and to consider [facility] if interested in meeting with additional providers for DM management. At PharmD visit on 11/22, Trulicity replaced Januvia. At PharmD visit on 12/26, metformin ER was started and glyburide was decreased. At PharmD visit on 05/07, patient complained of sulfur burps with Trulicity but she really likes the medication and wanted to increase the dose. Glyburide was also stopped. At PharmD visit on 06/06, no med changes madeand smoking cessation was encouraged. Patient later complained of vomiting with Trulicity so dose was decreased. At PharmD visit on 07/18, patient had not yet decreased Trulicity so she was told to doso. On 08/06 PharmD increased evening dose of Levemir via [employer]. At PharmD visit on 08/22/21, Jardiance was initiated, metformin, Trulicity, and Levemir were continued. Patient had recently made lifestyle modifications with a goal of weight loss. Patient messaged PharmD via [employer] concerns of new muscle aches, headache, body aches, and fatigue that began ~ 2 days after Jardiance was started. PharmD instructed patient to stop Jardiance, maintain good hydration, and to go to the ED if symptoms worsened. At last PharmD visit on 09/05, insulin was increased. At last PharmD visit on 10/03, no DM med changes at patient request but nicotine products started for smoking cessation. Subjective: HPI: Patient extremely happy with improved A1c. Losing weight, down to 237 lbs. Feeling well. Toleratingmeds well. Tried the nicotine patches, made her arm very itchy and had a rash under patch. Thinks she is allergic to the adhesive. She feels more addicted to the habit instead of the nicotine, it didn't help with anything really. Caresoanastaciachester did not cover the gum, said lozenges are covered. Says she is down to 5 packs per week. Always smokes right after waking up, right after eating, at bedtime, and when she is stressed/mad. 12/01 desire to quit. Wants to quit to improve her health, for her kids (be healthy for her kids) Current DM Medications: Metformin ER 500mg tab - 1000mg BID Dulaglutide (Trulicity) 1.5mg weekly on Sundays (max tolerated dose) Insulin detemir (Levemir) 48 units BID Current HTN Medications: Lisinopril 2.5 mg daily GLYCEMIC CONTROL: Glucometer present at visit: No SMBG s: highest BG was 180, lowest was 95 mg/dL Hypoglycemia: none Preventative Medications: On HUBER/ARB: Yes On Statin: Yes ROS: Patient denies CP, SOB, HUITRON, blurred vision, dizziness or lightheadedness Patient denies symptoms of hypoglycemia (sweating, anxiety, palpitations, hunger, and tremor) Patient denies symptoms of hyperglycemia (polyuria, polydipsia, polyphagia) Patient denies potential medication adverse effects DIET/EXERCISE/SOCIAL Hx: Still working on portion control Still riding bike in AM before kids wake up; plans to ride longer when school starts MEDICATIONS: Pill bottles are not present Adherence: denies missed doses [facility] Affordability: no issues Diabetes supplies: [employer] Organization System: Pill boxes (AM and PM) ACTIVE PROBLEM LIST Diabetes Type 2, Controlled (Hcc) Anxiety State Mixed Hyperlipidemia History of Abdominal Hernia History of Atrial Fibrillation Gastroesophageal Reflux Disease History of Asthma PAST MEDICAL HISTORY Diagnosis Date Anxiety state Cardiac arrest (HCC) With subsequent A. fib after initiation of anesthesia June 2016, converted with diltiazem after11 hours, she follows with cardiology Diabetes type 2, controlled (HCC) GERD (gastroesophageal reflux disease) History of depression Mixed hyperlipidemia Morbid obesity (HCC) Tobacco dependence Past medical, family and social history reviewed and updated. ALLERGIES Allergen Reactions Codeine Other: See Comments Jardiance [Empaglif* Intolerance Body aches, headaches earache Nubain [Nalbuphine] Vomiting Percocet [Oxycodone* Vomiting Medication List Medication Directions Comments Action/Plan albuterol HFA (VENTOLIN HFA) 90 mcg/actuation inhaler Inhale 2 Puffs as instructed. alcohol swabs (ALCOHOL PADS) Apply 1 application to affected area once daily. aspirin, enteric coated (ASPIRIN, ENTERIC COATED) 81 mg EC tablet Take 1 tablet by mouth once daily. blood sugar diagnostic (BLOOD GLUCOSE TEST) test strip Test blood sugar(s) 3 times daily. Dx: Type 2 DM - Controlled E11.9 Insulin: Yes Blood-Glucose Meter monitoring kit Glucose Meter of Choice - Kit - Dx: Type 2 DM - Controlled E11.9- Test 3 times daily -Insulin: Yes Chlorhexidine Gluconate (PERIDEX) 0.12 % solution twice daily. Patient not taking: Reported on 11/18/2021 dulaglutide (TRULICITY) 1.5 mg/0.5 mL pen injector Inject 1.5 mg subcutaneously one time a week. famotidine (PEPCID) 20 mg tablet Take 20 mg by mouth once daily. fluticasone (FLONASE) 50 mcg/actuation nasal spray Use 1 [place] in each nostril once daily. As needed hydrOXYzine pamoate (VISTARIL) 25 mg capsule Take 1 capsule by mouth three times daily as needed for anxiety. ibuprofen (MOTRIN) 800 mg tablet Take 800 mg by mouth every 6 hours as needed (headache). insulin needles, DISPOSABLE, (TRUEPLUS PEN NEEDLE) 31 gauge x 5/16" Use to inject insulin twice daily as directed. ketotifen fumarate (ZADITOR) 0.025 % (0.035 %) ophthalmic solution Use 1 Drop in both eyes twice daily. As needed LEVEMIR FLEXTOUCH U-100 INSULIN 100 unit/mL (3 mL) injection pen Inject 48 Units subcutaneously twice daily. Inject 44 units in the morning and 44 units in the evening as directed. lisinopril 2.5 mg tablet Take 1 tablet by mouth once daily. loratadine (CLARITIN) 10 mg tablet Take 1 tablet by mouth once daily. metFORMIN ER (GLUCOPHAGE XR) 500 mg 24 hr tablet Take 2 tablets by mouth twice daily with meals. nicotine (NICODERM CQ) 14 mg/24 hr Apply 1 Patch as directed every 24 hours. The 14mg patch is to be used AFTER 6 weeks of using the 21mg patch. Patient not taking: Reported on 11/18/2021 nicotine (NICODERM CQ) 21 mg/24 hr Apply 1 Patch as directed every 24 hours. For 6 weeks, then use the 14mg patch for 2 weeks then the 7mg patch for 2 weeks. Patient not taking: Reported on 11/18/2021 nicotine (NICODERM CQ) 7 mg/24 hr Apply 1 Patch as directed every 24 hours. The 7mg patch is to be used AFTER 6 weeks of using the 14mg patch. Patient not taking: Reported on 11/18/2021 nicotine polacrilex (NICORETTE) 4 mg gum Take 1 Each by mouth as needed. Use the chew and park method. Do NOT use more than 24 pieces per day. Patient not taking: Reported on 11/18/2021 omeprazole (PRILOSEC) 20 mg capsule Take 1 capsule by mouth once daily. ondansetron (ZOFRAN) 4 mg tablet Take 1 tablet by mouth every 8 hours as needed for nausea/vomiting. simvastatin (ZOCOR) 40 mg tablet Take 1 tablet by mouth daily at bedtime. sodium chloride (SALINE NASAL) 0.65 % nasal spray Use 2-3 Sprays in the nose three times daily. tiZANidine (ZANAFLEX) 4 mg tablet Take one as needed every 6 to 8 hours as needed for back pain venlafaxine ER (EFFEXOR XR) 150 mg 24 hr capsule Take 1 capsule by mouth once daily. Objective: Exam: Last 3 Encounter BP Readings: Date: BP: 11/18/2021 120/82 06/25/2021 112/80 01/03/2021 106/72 Wt: 109.3 kg (241 lb) BMI: 37.19 kg/(m^2) LABS: Reviewed Lab Results Component Value Date HBA1C 6.7 11/29/2021 HBA1C 7.2 06/25/2021 HBA1C 9.0 01/10/2021 HBA1C 9.9 10/02/2020 CMP: Glucose 124 11/29/2021 BUN 10 11/29/2021 Creatinine 0.61 11/29/2021 Sodium 142 11/29/2021 Potassium 4.2 11/29/2021 Chloride 106 11/29/2021 CO2 21 11/29/2021 Protein, Total 6.8 11/29/2021 Albumin 4.1 11/29/2021 Calcium 9.5 11/29/2021 Alkaline Phosphatase 83 11/29/2021 Bilirubin, Total 0.3 11/29/2021 AST 31 11/29/2021 ALT 35 11/29/2021 eGFR >60 Lab Results Component Value Date CHOL 108 11/29/2021 CHOL 129 10/02/2020 LDL 58 11/29/2021 LDL 80 10/02/2020 HDL 35 11/29/2021 HDL 34 10/02/2020 TG 75 11/29/2021 TG 75 10/02/2020 The ASCVD Risk score (Miladis LAZO Jr., et al., 2013) failed to calculate for the following reasons: The 2013 ASCVD risk score is only valid for ages 40 to 79 Albumin/Creat Ratio (mg/g) Date Value 11/29/2021 7 PHARMACOTHERAPY ASSESSMENT/PLAN: 1. 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) - ICD9: 250.90, ICD10: E11.8 (primary diagnosis) A1c goal < 7%; controlled (last A1c 6.7%); reported SMBGs at goal; no issues with lows; patient working on portion control; no med changes today; renal fxn and LFTs sufficient for use CONTINUE metformin ER 1000mg BID, Trulicity 1.5mg weekly, and Levemir 48 units BID Applauded on improved A1c! And portion control and bike riding! ACEi/ARB for renal protection: yes Statin: yes HbA1c: due 06/01/22 2. Tobacco abuse - ICD9: 305.1, ICD10: Z72.0 Contemplation stage of [place] stage of change; 12/01 willingness to quit; not ready to set quit date but prefers to taper; on 5 packs/week (~14 cigs/day); she feels triggers are boredom, waking up, after eating, stress, and bedtime; patient feels habit is worse than nicotine addiction - said the patchdid not help her plus was allergic to adhesive; gum not covered by insurance Nicotine patch and gum removed from med list INITIATE nicotine lozenges 4mg PRN cravings, NTE 20 lozenges/day o Counseled on the park method Suggested making a fake cigarette with a straw to hold; use lozenge when wants a cigarette; make a list of how to deal with stressful situation that don't involve smoking; suggested making a list of activities/chores to do when bored Personal goal: be down to 7 cigs/day by next PharmD f/up in 1 mo Discussed physiologic and physical aspects of tobacco addiction as well as strategies for quitting Patient is scheduled to see PCP on 02/07. Patient to have PharmD f/u on 01/16. Patient verbalized understanding of instructions. Vasu Orozco, [place], BCPS Primary Care Clinical Pharmacist Robbin Kemp [facility] The majority of the pharmacy visit (> 50%) was spent counseling and/or coordinating care for thepatient. interaction: telephonic time was 28 minutes. [facility] History of Present illness Narrative* Fercho Perez APRN.SHREDDED FILLER CUTTER OPERATOR - 11/18/2021 10:06 AM EDT SUBJECTIVE: PNEUMOCOCCAL(1 - PCV) Never done DTAP,TDAP,TD(1 - Tdap) Never done HEPATITIS B(1 of 3 - Risk 3-dose series) Never done PAP TESTING Never done HPV TESTING Never done LDL CHOLESTEROL due on 10/02/2021 HPI Charmaine Cochran is a 31 year old female. PMH significant for ACTIVE PROBLEM LIST Diabetes Type 2, Controlled (Hcc) Anxiety State Mixed Hyperlipidemia History of Abdominal Hernia History of Atrial Fibrillation Gastroesophageal Reflux Disease History of Asthma She presents today to follow up regarding diabetes. She notes feeling well. Notes that when checking blood glucose at home they have been well controlled recently. No adverse effects of medication noted. He has been adhering to diet. He has been adhering with portion control. Notes she has lost weight. Notes she has been exercising, bike riding. Since last here she has worked with Dr. Forbes regarding diabetes. Notes improved BS readings at home, no lows. Without report of excessive thirst or increased frequency of urination, chest pain or dyspnea , numbness, tingling or pain in extremities, new or unusual visual symptoms, low sugar/hypoglycemic reactions, weight loss/gain, lightheadedness/dizziness and bowel changes/loose stools. Patient's last HgA1C was Hemoglobin A1C (%) Date Value 06/25/2021 7.2 01/10/2021 9.0 ) She notes GERD currently well controlled with portion size reduction, weight loss. She notes less hernia pain as well. Without report of headache, chest pain, palpitations, dyspnea, peripheral edema, orthopnea, fatigueor PND. Last 14 Encounter BP Readings: Date: BP: 11/18/2021 120/82 06/25/2021 112/80 01/03/2021 106/72 10/23/2020 110/72 10/05/2020 112/68 10/02/2020 120/82 Review of Systems Constitutional: Negative. HENT: Positive for rhinorrhea and sinus pressure. Respiratory: Negative. Cardiovascular: Negative. Endocrine: Negative. Objective BP 120/82 Pulse 96 Resp 16 Wt 109.3 kg (241 lb) BMI 37.19 kg/m Physical Exam Vitals and nursing note reviewed. Constitutional: Appearance: Normal appearance. HENT: Head: Normocephalic and atraumatic. Eyes: Conjunctiva/sclera: Conjunctivae normal. Neck: Thyroid: No thyromegaly or thyroid tenderness. Cardiovascular: Rate and Rhythm: Normal rate. Pulses: Normal pulses. Carotid pulses are 2+ on the right side and 2+ on the left side. Radial pulses are 2+ on the right side and 2+ on the left side. Pulmonary: Effort: Pulmonary effort is normal. Feet: Right foot: Protective Sensation: 10 sites tested. 10 sites sensed. Skin integrity: Skin integrity normal. Toenail Condition: Right toenails are normal. Left foot: Protective Sensation: 10 sites tested. 10 sites sensed. Skin integrity: Skin integrity normal. Toenail Condition: Left toenails are normal. Neurological: Mental Status: She is alert and oriented to person, place, and time. Mental status is at baseline. ALLERGIES Allergen Reactions Codeine Other: See Comments Jardiance [Empaglif* Intolerance Body aches, headaches earache Nubain [Nalbuphine] Vomiting Percocet [Oxycodone* Vomiting MEDICATION: venlafaxine ER (EFFEXOR XR) 150 mg 24 hr capsule Take 1 capsule by mouth once daily. hydrOXYzine pamoate (VISTARIL) 25 mg capsule Take 1 capsule by mouth three times daily as needed for anxiety. simvastatin (ZOCOR) 40 mg tablet Take 1 tablet by mouth daily at bedtime. LEVEMIR FLEXTOUCH U-100 INSULIN 100 unit/mL (3 mL) injection pen Inject 48 Units subcutaneously twice daily. Inject 44 units in the morning and 44 units in the evening as directed. loratadine (CLARITIN) 10 mg tablet Take 1 tablet by mouth once daily. ibuprofen (MOTRIN) 800 mg tablet Take 800 mg by mouth every 6 hours as needed (headache). dulaglutide (TRULICITY) 1.5 mg/0.5 mL pen injector Inject 1.5 mg subcutaneously one time a week. insulin needles, DISPOSABLE, (TRUEPLUS PEN NEEDLE) 31 gauge x 5/16" Use to inject insulin twice daily as directed. lisinopril 2.5 mg tablet Take 1 tablet by mouth once daily. tiZANidine (ZANAFLEX) 4 mg tablet Take one as needed every 6 to 8 hours as needed for back pain sodium chloride (SALINE NASAL) 0.65 % nasal spray Use 2-3 Sprays in the nose three times daily. metFORMIN ER (GLUCOPHAGE XR) 500 mg 24 hr tablet Take 2 tablets by mouth twice daily with meals. aspirin, enteric coated (ASPIRIN, ENTERIC COATED) 81 mg EC tablet Take 1 tablet by mouth once daily. omeprazole (PRILOSEC) 20 mg capsule Take 1 capsule by mouth once daily. ondansetron (ZOFRAN) 4 mg tablet Take 1 tablet by mouth every 8 hours as needed for nausea/vomiting. blood sugar diagnostic (BLOOD GLUCOSE TEST) test strip Test blood sugar(s) 3 times daily. Dx: Type 2 DM - Controlled E11.9 Insulin: Yes Blood-Glucose Meter monitoring kit Glucose Meter of Choice - Kit - Dx: Type 2 DM - Controlled E11.9- Test 3 times daily -Insulin: Yes famotidine (PEPCID) 20 mg tablet Take 20 mg by mouth once daily. fluticasone (FLONASE) 50 mcg/actuation nasal spray Use 1 [place] in each nostril once daily. As needed ketotifen fumarate (ZADITOR) 0.025 % (0.035 %) ophthalmic solution 1 Drop twice daily. As needed albuterol HFA (VENTOLIN HFA) 90 mcg/actuation inhaler Inhale 2 Puffs as instructed. nicotine (NICODERM CQ) 21 mg/24 hr Apply 1 Patch as directed every 24 hours. For 6 weeks, then use the 14mg patch for 2 weeks then the 7mg patch for 2 weeks. nicotine (NICODERM CQ) 14 mg/24 hr Apply 1 Patch as directed every 24 hours. The 14mg patch is to be used AFTER 6 weeks of using the 21mg patch. nicotine (NICODERM CQ) 7 mg/24 hr Apply 1 Patch as directed every 24 hours. The 7mg patch is to be used AFTER 6 weeks of using the 14mg patch. nicotine polacrilex (NICORETTE) 4 mg gum Take 1 Each by mouth as needed. Use the chew and park method. Do NOT use more than 24 pieces per day. Chlorhexidine Gluconate (PERIDEX) 0.12 % solution twice daily. PAST MEDICAL HISTORY Diagnosis Date Anxiety state Cardiac arrest (HCC) With subsequent A. fib after initiation of anesthesia June 2016, converted with diltiazem after11 hours, she follows with cardiology Diabetes type 2, controlled (HCC) GERD (gastroesophageal reflux disease) History of depression Mixed hyperlipidemia Morbid obesity (HCC) Tobacco dependence Social History Tobacco Use Smoking status: Current Every Day Smoker Packs/day: 0.50 Years: 20.00 Pack years: 10.00 Smokeless tobacco: Never Used Substance Use Topics Alcohol use: Not Currently Drug use: Never Component Latest Ref Rng & Units 10/02/2020 WBC 3.70 - 11.00 k/uL 11.25 (H) RBC 3.90 - 5.20 m/uL 5.99 (H) Hemoglobin 11.5 - 15.5 g/dL 16.3 (H) Hematocrit 36.0 - 46.0 % 50.1 (H) MCV 80.0 - 100.0 fL 83.6 MCH 26.0 - 34.0 pG 27.2 MCHC 30.5 - 36.0 g/dL 32.5 RDW-CV 11.5 - 15.0 % 13.7 Platelet Count 150 - 400 k/uL 262 MPV 9.0 - 12.7 fL 10.3 Neut% % 63.0 Abs Neut (ANC) 1.45 - 7.50 k/uL 7.08 Lymph% % 29.3 Abs Lymph 1.00 - 4.00 k/uL 3.30 [place]% % 4.8 Abs [place] <0.87 k/uL 0.54 Eosin% % 2.3 Abs Eosin <0.46 k/uL 0.26 Baso% % 0.6 Abs Baso <0.11 k/uL 0.07 Nucleated Reds 0 /100 WBC 0.0 Absolute nRBC <0.01 k/uL <0.01 Diff Type Auto Diff Protein, Total 6.3 - 8.0 g/dL 7.4 Albumin 3.9 - 4.9 g/dL 4.5 Calcium 8.5 - 10.2 mg/dL 9.4 Bilirubin, Total 0.2 - 1.3 mg/dL 0.3 Alkaline Phosphatase 34 - 123 U/L 112 AST 13 - 35 U/L 19 Glucose 74 - 99 mg/dL 272 (H) BUN 7 - 21 mg/dL 11 Creatinine 0.58 - 0.96 mg/dL 0.58 Sodium 136 - 144 mmol/L 136 Potassium 3.7 - 5.1 mmol/L 4.3 Chloride 97 - 105 mmol/L 101 CO2 22 - 30 mmol/L 21 (L) Anion Gap 9 - 18 mmol/L 14 ALT 7 - 38 U/L 23 eGFR- >60 eGFR-All Other Races . >60 Total Cholesterol, Nonfasting <200 mg/dL 129 Triglycerides, Nonfasting <150 mg/dL 75 HDL Cholesterol, Nonfasting >39 mg/dL 34 (L) LDL Cholesterol, Nonfasting <100 mg/dL 80 Non HDL Cholesterol, Nonfasting <130 mg/dL 95 VLDL Cholesterol, Nonfasting <30 mg/dL 15 Total Chol/HDL Ratio, Nonfasting <5.10 mg/dL 3.79 LDL/HDL Ratio, Nonfasting <2.54 mg/dL 2.35 HIV 12 Combo (Ag/Ab) Non Reactive Non Reactive HIV-1/2 AB Test Not Indicated HIV Interpretation Negative Hemoglobin A1C 4.3 - 5.6 % 9.9 (H) Estimated Average Glucose mg/dL 237 Hep C Antibody IA Negative Negative hCG Quantitative, Blood <5.0 mU/mL <0.6 ASSESSMENT/PLAN: 1. 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 alf insulin use (HCC) - ICD9: 250.90, ICD10: E11.8 (primary diagnosis) Check A1c today and in three months She notes improved control, continue with current treatment unchanged, continue with lisinopril forrenal protection at current dose - COMP METABOLIC PANEL - HGB A1C - LIPID PANEL BASIC - ALBUMIN/CREAT RATIO RND UR 2. Encounter for immunization - ICD9: V03.89, ICD10: Z23 - ALCOHOL SWABS - PNEUMOCOCCAL VACCINE (PREVNAR 20) - HEPATITIS B VACCINE, ADULT AGE 20+, IM 3. Screening for cervical cancer - ICD9: V76.2, ICD10: Z12.4 4. Well woman exam with routine gynecological exam - ICD9: V72.31, ICD10: Z01.419 Followed at [facility], Dr Boyd. 5. Gastroesophageal reflux disease, unspecified whether esophagitis present - ICD9: 530.81, ICD10: K21.9 Notes improved control recently with decreased portion sizes and current medications. Continue unchanged for now. Continue to monitor 6. Mixed hyperlipidemia - ICD9: 272.2, ICD10: E78.2 Recommend a plant based diet such as Mediterranean diet with plenty of vegetables, fruits,whole grains, fish, chicken, turkey or plant proteins and routine exercise such as walking Keep 6 mo follow up Junior Jeong MD; labs prior Fercho Perez APRN.CNS Medical Decision Making: Problems: Moderate: 2+ stable chronic illnesses Risk: Moderate: Drug management Medical Decision Making Level: 4 - Moderate documented in this [facility]06-27-2022 Instructions* Patient Instructions* Fercho Perez APRN.CNS - 11/18/2021 10:04 AM EDT Check with your ordering provider for your eyedrops. Check to see if your insurance covers Tdap (tetanus diphtheria pertussis) vaccine and what locationto get the vaccine -usually best covered at your local pharmacy where you get prescriptions filled Continue with DM diet and routine exercise documented in this [facility]06-01-2022 Miscellaneous Notes* Telephone Encounter - Junior Jeong MD - 10/23/2021 7:17 PM EDT Okayed documented in this [facility]05-27-2022 Miscellaneous Notes* Telephone Encounter - Edwige Rapp LPN - 10/18/2021 3:10 PM EDT Patient phones requesting refills as follows: Pending Prescriptions Disp Refills HYDROXYZINE PAMOATE 25 MG CAPSULE 30 capsule 1 Sig: Take 1 capsule by mouth three times daily as needed for anxiety. TATYANA: No JOAN-06/25/21 Labs-10/02/20 NOV-11/18/21 med filled 08/13/21 Please review and advise. Edwige Rapp LPN [facility] History of Present illness Narrative* Vasu Orozco, [facility] - 10/03/2021 11:00 AM EDT Primary Care Pharmacy Visit CC (Reason for Consult): Diabetes Goal: A1c < 7% Collaborating Provider: JAROD Drake Last Provider Visit: 06/25/21 Charmaine Cochran is a 31 year old female presenting for follow up visit by telephone. Patient consents to pharmacy collaborative practice agreement. . Patient is presenting today for f/up pharmacotherapy management appointment for diabetes. At TIE UP WORKER visit in September 2020, pt instructed to complete labs and to consider [facility] if interested in meeting with additional providers for DM management. At PharmD visit on 11/22, Trulicity replaced Januvia. At PharmD visit on 12/26, metformin ER was started and glyburide was decreased. At PharmD visit on 05/07, patient complained of sulfur burps with Trulicity but she really likes the medication and wanted to increase the dose. Glyburide was also stopped. At PharmD visit on 06/06, no med changes madeand smoking cessation was encouraged. Patient later complained of vomiting with Trulicity so dose was decreased. At PharmD visit on 07/18, patient had not yet decreased Trulicity so she was told to doso. On 08/06 PharmD increased evening dose of Levemir via [employer]. At PharmD visit on 08/22/21, Jardiance was initiated, metformin, Trulicity, and Levemir were continued. Patient had recently made lifestyle modifications with a goal of weight loss. Patient messaged PharmD via [employer] concerns of new muscle aches, headache, body aches, and fatigue that began ~ 2 days after Jardiance was started. PharmD instructed patient to stop Jardiance, maintain good hydration, and to go to the ED if symptoms worsened. At last PharmD visit on 09/05, insulin was increased. Subjective: HPI: Patient reports she has been doing a lot more exercising. She started riding her bicycle on Thursday.Said she went 1/2 mile and her legs were burning, she realized she is out of shape. Last night she did 3 laps. Has been riding it daily this week. She started mowing the yard every Thursday (walking 2-3 hours). She feels good after riding her bike, she is having fun with it. She has been having more energy, no longer having trouble waking up in the morning. Still feels thirsty but she thinks it is from smoking. No GI issues since lowering Trulicity dose. Used to have issues with UTIs/yeast infxn but hasn't had any in a long time when BGs were poorly controlled. Thinks last episode was several months ago when she took an antibiotic. Wants weight loss. "I'm stuck between 240-242 lbs." Has cut back from smoking. Goes through about 6 packs/week. She wants to work on tapering back on cigarettes. Has never tried patch or other nicotine products. Tried Wellbutrin for smoking and anxiety, didn't work. Denies any ADEs. Has never tried Chantix, she was afraid to try because of reported ADEs of SI, "flipping out,", etc. Not interested in trying because she is sensitive to medications. Feels smoking is habitual, she always smokes after dinner, etc. Son has lung disease, if he is in the car she won't smoke in the car. Current DM Medications: Metformin ER 500mg tab - 1000mg BID Dulaglutide (Trulicity) 1.5mg weekly on Sundays (max tolerated dose) Insulin detemir (Levemir) 48 units BID Current HTN Medications: Lisinopril 2.5 mg daily GLYCEMIC CONTROL: Glucometer present at visit: No SMBG s: FBG today was 88; HS reading this week was 224 mg/dL after eating [place]riot food, next AM [id number] mg/dL; not checking BGs very often at this time Hypoglycemia: felt low/shaky this AM when BG was 88 mg/dL How corrected: cereal Triggers: Where do you usually smoke? she does NOT smoke inside her house Do you smoke when drinking alcohol or coffee? Yes, coffee Do you smoke after eating? yes Do you smoke because you are stressed? Yes, big trigger! Does anyone else in the house smoke? no Modified Fagerstrom Test for Nicotine Dependence: How soon after waking do you have your first cigarrette? A. Within 5 mins (3 points) B. 5-30 mins (2 points) C. 31-60 mins (1 point) D. >60 mins (0 points) Do you find it difficult not to smoke in places where smoking is forbidden? A. Yes (1 point) B. No (0 points) Which cigarette would you hate to give up most? A. First one in the morning (1 point) B. Any other one (0 points) How many cigarettes do you smoke each day A. 10 or fewer (0 points) B. 11-20 (1 point) C. 21-30 (2 points) D. 31+ (3 points) Do you smoke more during the first few hours after waking up than during the rest of the day? A. Yes (1 point) B. No (0 points) Do you still smoke if you are so sick that you are in bed most of the days, or if you have a cold or the flu and having trouble breathing? A. Yes (1 point) B. No (0 points) Fagerstrom Score: moderate dependence (5-7) Preventative Medications: On HUBER/ARB: Yes On Statin: Yes DIET/EXERCISE/SOCIAL Hx: No changes to diet, still working on portion control Breakfast: Exercising more, see above MEDICATIONS: Pill bottles are not present Adherence: denies missed doses [facility] Affordability: no issues Diabetes supplies: [employer] System: Pill boxes (AM and PM) ACTIVE PROBLEM LIST Diabetes Type 2, Controlled (Hcc) Anxiety State Mixed Hyperlipidemia History of Abdominal Hernia History of Atrial Fibrillation Gastroesophageal Reflux Disease History of Asthma PAST MEDICAL HISTORY Diagnosis Date Anxiety state Cardiac arrest (HCC) With subsequent A. fib after initiation of anesthesia June 2016, converted with diltiazem after11 hours, she follows with cardiology Diabetes type 2, controlled (HCC) GERD (gastroesophageal reflux disease) History of depression Mixed hyperlipidemia Morbid obesity (HCC) Tobacco dependence Past medical, family and social history reviewed and updated. ALLERGIES Allergen Reactions Codeine Other: See Comments Jardiance [Empaglif* Intolerance Body aches, headaches earache Nubain [Nalbuphine] Vomiting Percocet [Oxycodone* Vomiting Medication List Medication Directions Comments Action/Plan albuterol HFA (VENTOLIN HFA) 90 mcg/actuation inhaler Inhale 2 Puffs as instructed. aspirin, enteric coated (ASPIRIN, ENTERIC COATED) 81 mg EC tablet Take 1 tablet by mouth once daily. blood sugar diagnostic (BLOOD GLUCOSE TEST) test strip Test blood sugar(s) 3 times daily. Dx: Type 2 DM - Controlled E11.9 Insulin: Yes Blood-Glucose Meter monitoring kit Glucose Meter of Choice - Kit - Dx: Type 2 DM - Controlled E11.9- Test 3 times daily -Insulin: Yes Chlorhexidine Gluconate (PERIDEX) 0.12 % solution twice daily. dulaglutide (TRULICITY) 1.5 mg/0.5 mL pen injector Inject 1.5 mg subcutaneously one time a week. famotidine (PEPCID) 20 mg tablet Take 20 mg by mouth once daily. fluticasone (FLONASE) 50 mcg/actuation nasal spray Use 1 [place] in each nostril once daily. As needed hydrOXYzine pamoate (VISTARIL) 25 mg capsule Take 1 capsule by mouth three times daily as needed for anxiety. ibuprofen (MOTRIN) 800 mg tablet Take 800 mg by mouth every 6 hours as needed (headache). insulin needles, DISPOSABLE, (TRUEPLUS PEN NEEDLE) 31 gauge x 5/16" Use to inject insulin twice daily as directed. ketotifen fumarate (ZADITOR) 0.025 % (0.035 %) ophthalmic solution 1 Drop twice daily. As needed LEVEMIR FLEXTOUCH U-100 INSULIN 100 unit/mL (3 mL) injection pen Inject 48 Units subcutaneously twice daily. Inject 44 units in the morning and 44 units in the evening as directed. lisinopril 2.5 mg tablet Take 1 tablet by mouth once daily. loratadine (CLARITIN) 10 mg tablet Take 1 tablet by mouth once daily. metFORMIN ER (GLUCOPHAGE XR) 500 mg 24 hr tablet Take 2 tablets by mouth twice daily with meals. omeprazole (PRILOSEC) 20 mg capsule Take 1 capsule by mouth once daily. ondansetron (ZOFRAN) 4 mg tablet Take 1 tablet by mouth every 8 hours as needed for nausea/vomiting. simvastatin (ZOCOR) 40 mg tablet Take 1 tablet by mouth daily at bedtime. sodium chloride (SALINE NASAL) 0.65 % nasal spray Use 2-3 Sprays in the nose three times daily. tiZANidine (ZANAFLEX) 4 mg tablet Take one as needed every 6 to 8 hours as needed for back pain venlafaxine ER (EFFEXOR XR) 150 mg 24 hr capsule Take 1 capsule by mouth once daily. Objective: Exam: Last 3 Encounter BP Readings: Date: BP: 06/25/2021 112/80 01/03/2021 106/72 10/23/2020 110/72 Wt: 109.8 kg (242 lb) BMI: 37.34 kg/(m^2) LABS: Reviewed Lab Results Component Value Date HBA1C 7.2 06/25/2021 HBA1C 9.0 01/10/2021 HBA1C 9.9 10/02/2020 CMP: Glucose 272 10/02/2020 BUN 11 10/02/2020 Creatinine 0.58 10/02/2020 Sodium 136 10/02/2020 Potassium 4.3 10/02/2020 Chloride 101 10/02/2020 CO2 21 10/02/2020 Protein, Total 7.4 10/02/2020 Albumin 4.5 10/02/2020 Calcium 9.4 10/02/2020 Alkaline Phosphatase 112 10/02/2020 Bilirubin, Total 0.3 10/02/2020 AST 19 10/02/2020 ALT 23 10/02/2020 eGFR >60 mL/min (based on SCr 0.58 mg/dL on 10/02/20) Lab Results Component Value Date CHOL 129 10/02/2020 LDL 80 10/02/2020 HDL 34 10/02/2020 TG 75 10/02/2020 The ASCVD Risk score (Jonessumeet LAZO Jr., et al., 2013) failed to calculate for the following reasons: The 2013 ASCVD risk score is only valid for ages 40 to 79 Albumin/Creat Ratio (mg/g) Date Value 01/10/2021 10 PHARMACOTHERAPY ASSESSMENT/PLAN: 1. 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) - ICD9: 250.90, ICD10: E11.8 (primary diagnosis) A1c goal < 7%; borderline control and improving (last A1c 9-->7.2%); minimal SMBGs to review;patient started exercising this week and is feeling much better; saw a BG of 88 mg/dL this AM and she felt low - can't recall ever seeing a BG this low; tolerating current DM meds well; on max-tolerated dose of Trulicity; patient eager for weight loss; can consider trying Farxiga in future though genia lerma would need to be diligent about monitoring for ADEs considering the reaction she experienced after starting Jardiance; patient is over-basalized and technically should be on mealtime insulin though will continue without med changes for now at patient request so she can focus on lifestyle modifications; will f/up after next A1c/SHREDDED FILLER CUTTER OPERATOR appt; renal fxn and LFTs sufficient for use CONTINUE metformin ER 1000mg BID, Trulicity 1.5mg weekly, and Levemir 48 units BID Applauded on increased exercise, encouraged her to continue being physically active and watching portion sizes Should be doing daily SMBG since on insulin ACEi/ARB for renal protection: yes Statin: yes HbA1c: due now 2. Tobacco abuse - ICD9: 305.1, ICD10: Z72.0 Contemplation stage of change; smoking 6 packs/week; moderate nicotine dependence; patient feels big portion of her smoking is habitual; improving her health is big motivator and helping out her son who has lung issues (was born premature); patient felt bupropion was ineffective; no interested in Chantix due to reported ADEs; is open to trying NRT products today so will start patch and gum; patient not interested in setting quit date but would like to continue on tapering down dose INITIATE nicotine patch 21mg daily x 6 weeks, then will decrease to 14mg x 2 weeks then 7mg x 2 weeks Discussed appropriate application and disposal of the patch; informed of common side effects (headache, irritation at application site) and uncommon side effects (dizziness, lightheadedness, nausea, vomiting, trouble sleeping, abnormal dreams, nervousness, agitation); advised to go to ER immediately if noticing any sx of nicotine overdose such as dizziness, fast heartbeat, nausea, vomiting, and weakness; advised to remove patch prior to an MRI INITIATE nicotine gum 4mg PRN cravings (NTE 24 pieces/day) Discussed appropriate use of gum- do not swallow, minimize swallowing and occasionally move gum from one side of the mouth to the other; park between gum and lip; do not eat or drink 15 mins before using or while gumis in mouth; common side effects can include sore throat or heartburn - if these symptoms are severe or don't go away, call your doctor Stressed the importance of smoking cessation on the health of herself and her son Strongly advised to call [phone] to enroll in free program and get free NRT products Advised to contact PharmD if any ADEs with products Patient is scheduled to see SHREDDED FILLER CUTTER OPERATOR on 11/18. Patient to have PharmD f/u on 12/05. Patient verbalized understanding of instructions. Vasu Orozco PharmD, FABY Primary Care Clinical Pharmacist Robbin Kemp [facility] The majority of the pharmacy visit (> 50%) was spent counseling and/or coordinating care for thepatient. interaction: telephonic time was 40 minutes. documented [facility] History of Present illness Narrative* Vasu Orozco RPh - 09/05/2021 11:30 AM EDT The patient's case was discussed with the pharmacy operations manager who interviewed the patient. Wheeler elements of history confirmed during office visit. The progress note reflects my input and comments. Vasu Orozco PharmD, FABY Primary Care Clinical Pharmacist Robbin Kemp [facility] * Adrianna Herrera RPh - 09/05/2021 11:30 AM EDT Images from the original note were not included. Primary Care Pharmacy Visit CC (Reason for Consult): Diabetes Goal: A1c < 7% Collaborating Provider: JAROD Drake Last Provider Visit: 06/25/21 Charmaine Cochran is a 31 year old female presenting for follow up visit by telephone. Patient consents to pharmacy collaborative practice agreement. . Patient is presenting today for f/up pharmacotherapy management appointment for diabetes. At TIE UP WORKER visit in September 2020, pt instructed to complete labs and to consider [facility] DM program if interested in meeting with additional providers for DM management. At PharmD visit on 11/22, Trulicity replaced Januvia. At PharmD visit on 12/26, metformin ER was started and glyburide was decreased. Med adjustments have been made periodically via [employer]t since last appt. At last PCP appt, venlafaxine dose was increased, lisinopril was decreased, and tizanidine was started. At PharmD visit on 05/07, patient complained of sulfur burps with Trulicity but she really likes the medication and wanted to increase the dose. Glyburide was also stopped. At PharmD visit on 06/06, no med changes made and smoking cessation was encouraged. Patient later complained of vomiting with Trulicity so dose was recently decreased. At PharmD visit on 07/18, patient had not yet decreased Trulicity so she was told to do so. On 08/06 PharmD increased evening dose of Levemir via [employer]. At last PharmD visit on 08/22/21, Jardiance was initiated, metformin, Trulicity, and Levemir were continued. Patient had recently made lifestyle modifications with a goal of weight loss. Patient messaged PharmD via [employer] concerns of new muscle aches, headache, body aches, and fatigue that began ~ 2 days after Jardiance was started. PharmD instructed patient to stop Jardiance, maintain good hydration, and to go to the ED if symptoms worsened. Subjective: HPI: Patient reports feeling a lot better today, that she started to feel better about 2 days after stopping Jardiance. Patient states that Jardiance was helping her BG levels, but that her BG "can't bounce back" since stopping Jardiance. Patient endorses BG have been elevated recently, especially in the evenings, despite controlling portion sizes. Patient states on the day she ate beef and noodles, that her portion size was only 1/2 cup. Patient endorses all flu-like symptoms are completely resolved and that all previous GI symptoms ofvomiting and sulfur burps are resolved as well. Patient confirms starting Jardiance on Thursday 08/24, starting to feel bad on Friday 08/25, messaged PharmD on Saturday 08/26 and stopped Jardiance, patient reports starting to feel better around 08/29, then got the actual flu this past Thursday on was sick for a couple days but is better now. Patient feels discouraged about notfeeling well enough to exercise, that her energy level has been down since being ill. Patient bought an exercise bike to use at home, previously had been riding for15 minutes every Thursday, Thursday, Thursday. Patient plans to restart riding the exercise bike soon,now that she feels good enough to exercise. Patient reports weight has been maintained between 240-242 lbs. Current DM Medications: Metformin ER 500 mg tab - 1000 mg BID Empagliflozin (Jardiance) 10 mg daily - stopped taking due to ADEs Dulaglutide (Trulicity) 1.5 mg weekly on Sundays (max tolerated dose) Insulin detemir (Levemir) 44 units BID Current HTN Medications: Lisinopril 2.5 mg daily GLYCEMIC CONTROL: Glucometer present at visit: No SMBG s: Hypoglycemia: denies Preventative Medications: On HUBER/ARB: Yes On Statin: Yes ROS: Patient denies CP, SOB, HUITRON, blurred vision, dizziness or lightheadedness Patient denies symptoms of hypoglycemia (sweating, anxiety, palpitations, hunger, and tremor) Patient reports symptoms of hyperglycemia (polyuria, polydipsia, polyphagia) Dry mouth in the mornings, pretty much every morning Patient denies potential medication adverse effects MEDICATIONS: Pill bottles are not present Adherence: reports missed doses Reports 1 missed dose of Trulicity on Friday 08/25 due to illness, last dose Trulicity Friday 09/01 Pharmacy: [facility] Rx coverage: [facility] Affordability: no issues Diabetes supplies: [employer] System: pill boxes (AM and PM) ACTIVE PROBLEM LIST Diabetes Type 2, Controlled (Hcc) Anxiety State Mixed Hyperlipidemia History of Abdominal Hernia History of Atrial Fibrillation Gastroesophageal Reflux Disease History of Asthma PAST MEDICAL HISTORY Diagnosis Date Anxiety state Cardiac arrest (HCC) With subsequent A. fib after initiation of anesthesia June 2016, converted with diltiazem after11 hours, she follows with cardiology Diabetes type 2, controlled (HCC) GERD (gastroesophageal reflux disease) History of depression Mixed hyperlipidemia Morbid obesity (HCC) Tobacco dependence Past medical, family and social history reviewed and updated. ALLERGIES Allergen Reactions Codeine Other: See Comments Jardiance [Empaglif* Intolerance Body aches, headaches earache Nubain [Nalbuphine] Vomiting Percocet [Oxycodone* Vomiting Medication List Medication Directions Comments Action/Plan albuterol HFA (VENTOLIN HFA) 90 mcg/actuation inhaler Inhale 2 Puffs as instructed. aspirin, enteric coated (ASPIRIN, ENTERIC COATED) 81 mg EC tablet Take 1 tablet by mouth once daily. blood sugar diagnostic (BLOOD GLUCOSE TEST) test strip Test blood sugar(s) 3 times daily. Dx: Type 2 DM - Controlled E11.9 Insulin: Yes Blood-Glucose Meter monitoring kit Glucose Meter of Choice - Kit - Dx: Type 2 DM - Controlled E11.9- Test 3 times daily -Insulin: Yes Chlorhexidine Gluconate (PERIDEX) 0.12 % solution twice daily. dulaglutide (TRULICITY) 1.5 mg/0.5 mL pen injector Inject 1.5 mg subcutaneously one time a week. famotidine (PEPCID) 20 mg tablet Take 20 mg by mouth once daily. fluticasone (FLONASE) 50 mcg/actuation nasal spray Use 1 [place] in each nostril once daily. As needed hydrOXYzine pamoate (VISTARIL) 25 mg capsule Take 1 capsule by mouth three times daily as needed for anxiety. ibuprofen (MOTRIN) 800 mg tablet Take 800 mg by mouth every 6 hours as needed (headache). insulin needles, DISPOSABLE, (TRUEPLUS PEN NEEDLE) 31 gauge x 5/16" Use to inject insulin twice daily as directed. ketotifen fumarate (ZADITOR) 0.025 % (0.035 %) ophthalmic solution 1 Drop twice daily. As needed LEVEMIR FLEXTOUCH U-100 INSULIN 100 unit/mL (3 mL) injection pen Inject 44 units in the morning and44 units in the evening as directed. lisinopril 2.5 mg tablet Take 1 tablet by mouth once daily. loratadine (CLARITIN) 10 mg tablet Take 1 tablet by mouth once daily. metFORMIN ER (GLUCOPHAGE XR) 500 mg 24 hr tablet Take 2 tablets by mouth twice daily with meals. omeprazole (PRILOSEC) 20 mg capsule Take 1 capsule by mouth once daily. ondansetron (ZOFRAN) 4 mg tablet Take 1 tablet by mouth every 8 hours as needed for nausea/vomiting. simvastatin (ZOCOR) 40 mg tablet Take 1 tablet by mouth daily at bedtime. sodium chloride (SALINE NASAL) 0.65 % nasal spray Use 2-3 Sprays in the nose three times daily. tiZANidine (ZANAFLEX) 4 mg tablet Take one as needed every 6 to 8 hours as needed for back pain venlafaxine ER (EFFEXOR XR) 150 mg 24 hr capsule Take 1 capsule by mouth once daily. Objective: Last 3 Encounter BP Readings: Date: BP: 06/25/2021 112/80 01/03/2021 106/72 10/23/2020 110/72 Wt: 109.8 kg (242 lb) BMI: 37.34 kg/(m^2) LABS: Reviewed Lab Results Component Value Date HBA1C 7.2 06/25/2021 HBA1C 9.0 01/10/2021 HBA1C 9.9 10/02/2020 CMP: Glucose 272 10/02/2020 BUN 11 10/02/2020 Creatinine 0.58 10/02/2020 Sodium 136 10/02/2020 Potassium 4.3 10/02/2020 Chloride 101 10/02/2020 CO2 21 10/02/2020 Protein, Total 7.4 10/02/2020 Albumin 4.5 10/02/2020 Calcium 9.4 10/02/2020 Alkaline Phosphatase 112 10/02/2020 Bilirubin, Total 0.3 10/02/2020 AST 19 10/02/2020 ALT 23 10/02/2020 eGFR >60 mL/min (based on SCr 0.58 mg/dL on 10/02/20) Lab Results Component Value Date CHOL 129 10/02/2020 LDL 80 10/02/2020 HDL 34 10/02/2020 TG 75 10/02/2020 The ASCVD Risk score (Miladis CLIFTON Jr., et al., 2013) failed to calculate for the following reasons: The 2013 ASCVD risk score is only valid for ages 40 to 79 Albumin/Creat Ratio (mg/g) Date Value 01/10/2021 10 PHARMACOTHERAPY ASSESSMENT/PLAN: 1. 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) - ICD9: 250.90, ICD10: E11.8 A1c goal < 7%; near goal (last A1c 7.2%); SMBG elevated on current regimen, however patient's illness may also be contributing; denies s/sx hypoglycemia; reports s/sx hyperglycemia of dry mouth every morning; patient tolerating maximum dose metformin and Trulicity at 1.5 mg weekly; patient experienced significant ADEs from Jardiance, based on timeline of symptoms and illness, would likely not re-challenge Jardiance in the future; based on patient's goals could have risk-benefit discussion and consider Farxiga at future visits; will increase Levemir at this time for additional BG control; renal fxn and LFTs sufficient for use. INCREASE Levemir to 48 units BID CONTINUE metformin ER 1000 mg BID and Trulicity 1.5 mg weekly Encouraged patient to continue to focus on portion control meals and increasing exercise Continue to check BG twice daily Patient to notify PharmD if there are any new concerns or questions ACEi/ARB for renal protection: yes, Scr and K sufficient for use Statin: yes, LFTs WNL HbA1c: due 09/22/21, already ordered Patient is scheduled to see PCP on 09/23/21. Patient to have PharmD f/u on 10/03/21 at 11:00am for a phone visit. Patient verbalized understanding of instructions. Adrianna Herrera PharmD PGY1 [employer] The majority of the pharmacy visit (> 50%) was spent counseling and/or coordinating care for thepatient. interaction: telephonic time was 28 minutes. documented in this [facility]04-[facility]-2022 Miscellaneous Notes* Addendum Note - Vasu Orozco RPh - 08/26/2021 1:53 PM EDT Addended by: VASU OROZCO on: 08/26/2021 01:53 PM Modules accepted: Orders * Telephone Encounter - Vasu Orozco RPh - 08/26/2021 1:51 PM EDT PharmD called and spoke with patient. Advised her to resume Levemir 44 units twice daily since she is no longer on Jardiance. F/up scheduled next week to review SMBG log. Vasu Orozco PharmD, [facility] Primary Care Clinical Pharmacist Robbin Kemp [facility] * Addendum Note - Fercho Perez APRN.SHREDDED FILLER CUTTER OPERATOR - 08/26/2021 1:40 PM EDT Addended by: FERCHO PEREZ on: 08/26/2021 01:40 PM Modules accepted: Orders * Telephone Encounter - Fercho Perez APRN.CNS - 08/26/2021 1:32 PM EDT TC to [place] Body aches with taking jardiance. She reports headache, earache, back ache, body aches since taking this ~ 2 days. States she does not feel ill, no sick contacts. Afebrile. Recommend getting plenty of rest and fluids for now. She reports that she feels moderately unwell, does not feel she needs to go to emergency department. Recommend she stay off Jardiance for now. PharmD will reach out to adjust DM medications. . * Telephone Encounter - Vasu Orozco [facility] - 08/26/2021 12:58 PM EDT PharmD addressed in other phone encounter from today. Encounter routed as high priority to PCP and SHREDDED FILLER CUTTER OPERATOR for review. Vasu Orozco PharmD, BCPS Primary Care Clinical Pharmacist Robbin Kemp [facility] * Telephone Encounter - Sabina Baldwin RN - 08/26/2021 12:36 PM EDT Patient calls and states that she started Jardiance on Thursday. Patient reports that last night her muscles started hurting her really bad and she started having a bad headache. Patient states that she has an intolerance for some medications and patient believes that she is having a reaction to the jardiance. Please review and advise, Sabina Balwdin RN documented in this encounterEly[facility]04-04-2022 Miscellaneous Notes* Telephone Encounter - Vasu Orozco RP - 08/26/2021 1:46 PM EDT Images from the original note were not included. SHREDDED FILLER CUTTER OPERATOR addressed in other phone encounter from today: * Telephone Encounter - Vasu Orozco RPh - 08/26/2021 12:46 PM EDT Images from the original note were not included. Patient sent PharmD a MyChart msg today (see MyC encounter from 08/22): PharmD called patient to discuss further. She states she started Jardiance on Thursday and last night she started having a lot of body muscle aches. Today she still has muscle aches, a headache that is going towards her eyes and ears, and she feels very tired. She denies fever, congestion, cough, runny nose, or other symptoms of illness or flu. No breathing issues or stomach issues. Her FBG this morning was in the 120s. Patient doesn't have any high risk factors for euglycemic diabetic ketoacidosis but these are all possible symptoms. Advised her to STOP Jardiance at this time and try to stay hydrated. Advised to goto ER if sx worsen or if her breathing starts to change. PharmD forwarding note to PCP/SHREDDED FILLER CUTTER OPERATOR as high priority to review. Vasu Orozco PharmD, BCPS Primary Care Clinical Pharmacist Robbin Kemp [facility] documented in this encounterElyria [facility]03-31-2022 Miscellaneous Notes* Telephone Encounter - Vasu Orozco RPh - 08/22/2021 1:04 PM EDT Images from the original note were not included. documented in this encounterElyria [facility]03-31-2022 History of Present illness Narrative* Vasu Orozco RPh - 08/22/2021 10:30 AM EDT Primary Care Pharmacy Visit CC (Reason for Consult): Diabetes Goal: A1c < 7% Collaborating Provider: JAROD Drake Last Provider Visit: 06/25/21 Charmaine Cochran is a 31 year old female presenting for follow up visit by telephone. Patient consents to pharmacy collaborative practice agreement. . Patient is presenting today for f/up pharmacotherapy management appointment for diabetes. At TIE UP WORKER visit in September 2020, pt instructed to complete labs and to consider [facility] DM program if interested in meeting with additional providers for DM management. At PharmD visit on 11/22, Trulicity replaced Januvia. At PharmD visit on 12/26, metformin ER was started and glyburide was decreased. Med adjustments have been made periodically via [employer] since last appt. At last PCP appt, venlafaxine dose was increased, lisinopril was decreased, and tizanidine was started. At PharmD visit on 05/07, patient complained of sulfur burps with Trulicity but she really likes the medication and wanted to increase the dose. Glyburide was also stopped. At PharmD visit on 06/06, no med changes made and smoking cessation was encouraged. Patient later complained of vomiting with Trulicity so dose was recently decreased. At last PharmD visit on 07/18, patient had not yet decreased Trulicity so she was told to do so. On 08/06 PharmD increased evening dose of Levemir via [employer]Miner. Subjective: HPI: Just started using her exercise bike this week. Really likes it. Feels a lot better in the mornings, has more energy. Sleeping better as a result of exercise and switching timing of her muscle relaxer. States people have told her that she looks like she has been losing weight. She put short on yesterday and they are too loose. Not having has much back pain and not getting winded as easily. She decreased Trulicity and sulfur burps went away. 07/21 was first dose of 1.5mg. Not having any GIissues AT ALL with this lower dose of Trulicity. Personal goals: BG control and weight loss Denies issues with UTIs or yeast infections (though will have yeast infxn if taking an antibiotic). Current DM Medications: Metformin ER 500mg tabs - 1000mg BID Dulaglutide (Trulicity) 1.5mg weekly on Sundays Insulin detemir (Levemir) 44 units QAM and 48 units QPM (taking 44 units BID) GLYCEMIC CONTROL: Glucometer present at visit: No SMBG s: out in town right now, doesn't recall all her readings, said would send a picture; she is wondering if her sugar is going low at night making her AM readings higher Date Fasting AM 2 hr PP Before Lunch 2 hr PP Before Dinner 2 hr PP Bedtime 08/22 183 08/21 107 (later ate 1/2 banana) Hypoglycemia: none Preventative Medications: On HUBER/ARB: Yes On Statin: Yes DIET/EXERCISE/SOCIAL Hx: No changes, trying to still focus on portion control Exercise: started exercising on her stationary bike, goal is 3 days per week (just bought a new gelpad); doing 15 mins at a time MEDICATIONS: Pill bottles are not present Adherence: denies missed doses Pharmacy: [facility] Rx coverage: [facility] Affordability: no issues Diabetes supplies: [employer] System: pill boxes (AM and PM) ACTIVE PROBLEM LIST Diabetes Type 2, Controlled (Hcc) Anxiety State Mixed Hyperlipidemia History of Abdominal Hernia History of Atrial Fibrillation Gastroesophageal Reflux Disease History of Asthma PAST MEDICAL HISTORY Diagnosis Date Anxiety state Cardiac arrest (HCC) With subsequent A. fib after initiation of anesthesia June 2016, converted with diltiazem after11 hours, she follows with cardiology Diabetes type 2, controlled (HCC) GERD (gastroesophageal reflux disease) History of depression Mixed hyperlipidemia Morbid obesity (HCC) Tobacco dependence Past medical, family and social history reviewed and updated. ALLERGIES Allergen Reactions Codeine Other: See Comments Nubain [Nalbuphine] Vomiting Percocet [Oxycodone* Vomiting Medication List Medication Directions Comments Action/Plan albuterol HFA (VENTOLIN HFA) 90 mcg/actuation inhaler Inhale 2 Puffs as instructed. aspirin, enteric coated (ASPIRIN, ENTERIC COATED) 81 mg EC tablet Take 1 tablet by mouth once daily. blood sugar diagnostic (BLOOD GLUCOSE TEST) test strip Test blood sugar(s) 3 times daily. Dx: Type 2 DM - Controlled E11.9 Insulin: Yes Blood-Glucose Meter monitoring kit Glucose Meter of Choice - Kit - Dx: Type 2 DM - Controlled E11.9- Test 3 times daily -Insulin: Yes Chlorhexidine Gluconate (PERIDEX) 0.12 % solution twice daily. dulaglutide (TRULICITY) 1.5 mg/0.5 mL pen injector Inject 1.5 mg subcutaneously one time a week. famotidine (PEPCID) 20 mg tablet Take 20 mg by mouth once daily. fluticasone (FLONASE) 50 mcg/actuation nasal spray Use 1 [place] in each nostril once daily. As needed hydrOXYzine pamoate (VISTARIL) 25 mg capsule Take 1 capsule by mouth three times daily as needed for anxiety. ibuprofen (MOTRIN) 800 mg tablet Take 800 mg by mouth every 6 hours as needed (headache). insulin needles, DISPOSABLE, (TRUEPLUS PEN NEEDLE) 31 gauge x 5/16" Use to inject insulin twice daily as directed. ketotifen fumarate (ZADITOR) 0.025 % (0.035 %) ophthalmic solution 1 Drop twice daily. As needed LEVEMIR FLEXTOUCH U-100 INSULIN 100 unit/mL (3 mL) injection pen Inject 44 units in the morning and48 units in the evening as directed. lisinopril 2.5 mg tablet Take 1 tablet by mouth once daily. loratadine (CLARITIN) 10 mg tablet Take 1 tablet by mouth once daily. metFORMIN ER (GLUCOPHAGE XR) 500 mg 24 hr tablet Take 2 tablets by mouth twice daily with meals. omeprazole (PRILOSEC) 20 mg capsule Take 1 capsule by mouth once daily. ondansetron (ZOFRAN) 4 mg tablet Take 1 tablet by mouth every 8 hours as needed for nausea/vomiting. simvastatin (ZOCOR) 40 mg tablet Take 1 tablet by mouth daily at bedtime. sodium chloride (SALINE NASAL) 0.65 % nasal spray Use 2-3 Sprays in the nose three times daily. tiZANidine (ZANAFLEX) 4 mg tablet Take one as needed every 6 to 8 hours as needed for back pain venlafaxine ER (EFFEXOR XR) 150 mg 24 hr capsule Take 1 capsule by mouth once daily. Objective: Exam: Last 3 Encounter BP Readings: Date: BP: 06/25/2021 112/80 01/03/2021 106/72 10/23/2020 110/72 Wt: 109.8 kg (242 lb) BMI: 37.34 kg/(m^2) LABS: Reviewed Lab Results Component Value Date HBA1C 7.2 06/25/2021 HBA1C 9.0 01/10/2021 HBA1C 9.9 10/02/2020 CMP: Glucose 272 10/02/2020 BUN 11 10/02/2020 Creatinine 0.58 10/02/2020 Sodium 136 10/02/2020 Potassium 4.3 10/02/2020 Chloride 101 10/02/2020 CO2 21 10/02/2020 Protein, Total 7.4 10/02/2020 Albumin 4.5 10/02/2020 Calcium 9.4 10/02/2020 Alkaline Phosphatase 112 10/02/2020 Bilirubin, Total 0.3 10/02/2020 AST 19 10/02/2020 ALT 23 10/02/2020 eGFR >60 Lab Results Component Value Date CHOL 129 10/02/2020 LDL 80 10/02/2020 HDL 34 10/02/2020 TG 75 10/02/2020 The ASCVD Risk score (Miladis LAZO Jr., et al., 2013) failed to calculate for the following reasons: The 2013 ASCVD risk score is only valid for ages 40 to 79 Albumin/Creat Ratio (mg/g) Date Value 01/10/2021 10 PHARMACOTHERAPY ASSESSMENT/PLAN: 1. 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 alf insulin use (HCC) - ICD9: 250.90, ICD10: E11.8 A1c goal < 7%; borderline control (last A1c 7.2%); minimal SMBGs to review but all reported readings <200 mg/dL; patient no longer having GI ADEs since decreasing Trulicity dose; patient very interested in weight loss; will plan to start SGLT2i today with goals of offsetting some insulin requirement; patient just started exercising this week and feeling much better, thinks losing some weight; renal fxn and LFTs sufficient for use INITIATE Jardiance 10mg daily Discussed potential risks of dehydration and genital bacterial/mycotic infxns - counseled to maintain good hydration and personal hygiene; discussed literature findings of possible Chelsea's gangrene - advised patient to stop medication and contact doctor immediately if notices genital or perianalpain, erythema, tenderness, or swelling; counseled on risk of diabetic ketoacidosis - [facility] if develops sudden nausea/vomiting, fatigue, confusion, SOB, and/or weakness Advised NOT to start Jardiance until she sends me a picture of her recent SMBGs. Will plan to adjust insulin dose as needed based on BG readings (will inform patient via MyChart). CONTINUE metformin ER 1000mg BID, Trulicity 1.5mg weekly, and Levemir 44 units BID Applauded on increased exercise, encouraged continued weight loss efforts ACEi/ARB for renal protection: yes Statin: yes HbA1c: due 09/22/21 Patient is scheduled to see [employer] OPERATOR on 09/24. Patient verbalized understanding of instructions. Vasu Orozco PharmD, [facility] Primary Care Clinical Pharmacist Robbin Kemp [facility] The majority of the pharmacy visit (> 50%) was spent counseling and/or coordinating care for thepatient. interaction: telephonic time was 24 minutes. [facility] 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 alf insulin use (HCC)- Primary documented [facility]* Diagnosis 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 alf insulin use (HCC) documented [facility]* Diagnosis 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) documented [facility]* Diagnosis 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)- Primary documented [facility]* Diagnosis 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 alf insulin use (HCC)- Primary Tobacco abuse Tobacco use disorder documented [facility]* Diagnosis Mixed hyperlipidemia [facility] Diagnosis 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)- Primary Encounter for immunization Need for other specified prophylactic vaccination against single bacterial disease Screening for cervical cancer Screening for malignant neoplasm of the cervix Well woman exam with routine gynecological exam Routine gynecological examination Gastroesophageal reflux disease, unspecified whether esophagitis present Mixed hyperlipidemia documented [facility]* Diagnosis 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 alf insulin use (HCC)- Primary Tobacco abuse Tobacco use disorder documented [facility]* Diagnosis Gastroesophageal reflux disease, unspecified whether esophagitis present documented [facility]* Diagnosis Gastroesophageal reflux disease, unspecified whether esophagitis present [facility]* Diagnosis 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 alf insulin use (HCC)- Primary Tobacco abuse Tobacco use disorder [facility]* Diagnosis Acute right-sided low back pain without sciatica- Primary Lower abdominal pain Abdominal pain, other specified site documented [facility]* Diagnosis Acute right-sided low back pain without sciatica- Primary [facility] Diagnosis Acute right-sided low back pain without sciatica [facility] Diagnosis 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 alf insulin use (HCC) documented [facility]* Diagnosis Lower abdominal pain Abdominal pain, other specified site documented [facility]* Diagnosis Acute right-sided low back pain without sciatica- Primary 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 alf insulin use (HCC) Mixed hyperlipidemia Nausea Nausea alone Class 2 obesity due to excess calories with body mass index (BMI) of 35.0 to 35.9 in adult, unspecified whether serious comorbidity present [facility]* Diagnosis Viral upper respiratory tract infection- Primary Acute upper respiratory infections of unspecified site documented [facility]* Diagnosis Anxiety state- Primary Anxiety state, unspecified Nausea Nausea alone documented [facility]* Diagnosis 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 alf insulin use (HCC)- Primary Dizziness Dizziness and giddiness Nausea Nausea alone Encounter for long-term current use of medication Class 1 obesity due to excess calories with body mass index (BMI) of 32.0 to 32.9 in adult, unspecified whether serious comorbidity present [facility]* Diagnosis Controlled type 2 diabetes mellitus without complication, 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)- Primary [facility]* Diagnosis 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 alf insulin use (HCC) [facility]* Diagnosis Encounter for supervision of high risk in first trimester, antepartum- Primary 11 weeks gestation of state, incidental with uncertain viability, single or unspecified fetus Gestational diabetes mellitus in , controlled by oral hypoglycemic drugs Nausea and vomiting during Cervical cancer screening Screening for malignant neoplasm of the cervix Depressive disorder Depressive disorder, not elsewhere classified Anxiety state Anxiety state, unspecified History of abdominal hernia History of asthma Personal history of other diseases of respiratory system History of atrial fibrillation Personal history of other diseases of circulatory system Multigravida of advanced maternal age in first trimester History of labor, current , first trimester Obesity affecting in first trimester, unspecified obesity type History of gestational diabetes in prior , currently with other poor obstetric history History of trichomoniasis Personal history of other infectious and parasitic disease PCOS (polycystic ovarian syndrome) Polycystic ovaries [facility] Diagnosis 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)- Primary History of gestational diabetes in prior , currently with other poor obstetric history [facility] Diagnosis Type 2 diabetes mellitus complicating , antepartum, first trimester- Primary High-risk , first trimester [facility] Diagnosis Nuchal translucency of fetus on ultrasound- Primary Abnormal findings on screening Encounter for supervision of high risk in first trimester, antepartum 12 weeks gestation of state, incidental [facility]* Diagnosis Multigravida of advanced maternal age in second trimester- Primary 15 weeks gestation of state, incidental [facility]* Diagnosis AMA (advanced maternal age) multigravida 35+, third trimester [O09.523]- Primary Encounter for anatomic survey [Z36.89] Encounter for anatomic survey Other obesity due to excess calories affecting in second trimester [O99.212, E66.09] [facility] Diagnosis Encounter for supervision of high risk in first trimester, antepartum Gestational diabetes mellitus in , controlled by oral hypoglycemic drugs History of labor, current , first trimester premature rupture of membranes (PPROM) with unknown onset of labor Type 2 diabetes mellitus during , second trimester [facility] Diagnosis 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) Mixed hyperlipidemia [facility]* Diagnosis Type 2 diabetes mellitus complicating , antepartum, first trimester- Primary [facility] Diagnosis Prior with demise- Primary with other poor reproductive history At risk for depressed mood during period [facility]* Diagnosis Chronic pain syndrome- Primary Chronic low back pain with bilateral sciatica, unspecified back pain laterality [facility]* Diagnosis Controlled type 2 diabetes mellitus without complication, without long-term current use of insulin (HCC)- Primary [facility]* Diagnosis Nausea vomiting and diarrhea- Primary Diarrhea 6 weeks gestation of state, incidental [facility]* Diagnosis Supervision of high risk in first trimester- Primary Unspecified high-risk Less than 8 weeks gestation of state, incidental with uncertain dates in first trimester Pre-existing type 2 diabetes mellitus during in first trimester Multigravida of advanced maternal age in first trimester Obesity affecting in first trimester, unspecified obesity type History of delivery of macrosomal Asthma during History of atrial fibrillation Personal history of other diseases of circulatory system Tobacco smoking complicating in first trimester Tobacco use disorder complicating , childbirth, or the puerperium, antepartum condition or complication Constipation during in first trimester Gestational diabetes mellitus in , controlled by oral hypoglycemic drugs Anxiety and depression Dysthymic disorder History of asthma Personal history of other diseases of respiratory system AMA (advanced maternal age) multigravida 35+, second trimester History of trichomoniasis Personal history of other infectious and parasitic disease [facility]* Diagnosis LLQ pain- Primary Abdominal pain, left lower quadrant Irregular menses Irregular menstrual cycle Class 1 obesity due to excess calories with body mass index (BMI) of 34.0 to 34.9 in adult, unspecified whether serious comorbidity present [facility]* Diagnosis Encounter for supervision of high risk in first trimester, antepartum- Primary [facility]* Diagnosis Diabetes mellitus type 1, controlled, without complications (HCC)- Primary Type I (juvenile type) diabetes mellitus without mention of complication, not stated as uncontrolled Pre-existing type 2 diabetes mellitus in in first trimester Diabetes mellitus of mother, complicating , childbirth, or the puerperium, unspecified as to episode of care High-risk , first trimester [facility]* Diagnosis Supervision of other high risk pregnancies, first trimester- Primary Pre-existing type 2 diabetes mellitus during in first trimester Multigravida of advanced maternal age in first trimester 10 weeks gestation of state, incidental Obesity affecting in first trimester, unspecified obesity type documented [facility]* Diagnosis Chronic right-sided low back pain with right-sided sciatica [facility]* Diagnosis Diabetes mellitus type 1, controlled, without complications (HCC) Type I (juvenile type) diabetes mellitus without mention of complication, not stated as uncontrolled [facility]* Diagnosis premature rupture of membranes (PPROM) with unknown onset of labor- Primary Encounter for supervision of high risk in first trimester, antepartum Pre-existing type 2 diabetes mellitus during in first trimester Multigravida of advanced maternal age in first trimester Supervision of other high risk pregnancies, first trimester Obesity affecting in first trimester, unspecified obesity type Hx of delivery, currently , second trimester History of premature rupture of membranes History of delivery of macrosomal infant History of labor, current , first trimester Bacterial vaginitis Vaginitis and vulvovaginitis, unspecified Asthma during AMA (advanced maternal age) multigravida 35+, second trimester History of atrial fibrillation Personal history of other diseases of circulatory system Anxiety and depression Dysthymic disorder Tobacco use disorder complicating , childbirth, or puerperium, antepartum, unspecified trimester Encounter for (NT) nuchal translucency scan Other specified screening 12 weeks gestation of state, incidental History of prior with short cervix, currently with other poor obstetric history History of delivery, currently with history of pre-term labor [facility]* Diagnosis Pre-existing type 2 diabetes mellitus in in first trimester- Primary Diabetes mellitus of mother, complicating , childbirth, or the puerperium, unspecified as to episode of care [facility]* Diagnosis Supervision of other high risk pregnancies, first trimester- Primary Pre-existing type 2 diabetes mellitus during in first trimester Multigravida of advanced maternal age in first trimester Cervical cerclage suture present in first trimester 13 weeks gestation of state, incidental Encounter for other general counseling or advice on contraception [facility]* Diagnosis Diabetes mellitus type 1, controlled, without complications (HCC) Type I (juvenile type) diabetes mellitus without mention of complication, not stated as uncontrolled [facility] Diagnosis Encounter for anatomic survey- Primary Encounter for screening for malformation using ultrasound 16 weeks gestation of state, incidental Obesity affecting in second trimester, unspecified obesity type Multigravida of advanced maternal age in second trimester Pre-existing type 2 diabetes mellitus during in first trimester [facility]* Diagnosis Multigravida of advanced maternal age in second trimester- Primary Pre-existing type 2 diabetes mellitus during in first trimester [facility]* Diagnosis 16 weeks gestation of - Primary state, incidental Multigravida of advanced maternal age in second trimester Pre-existing type 2 diabetes mellitus during in first trimester Obesity affecting in second trimester, unspecified obesity type Cervical cerclage suture present in first trimester [facility]* Diagnosis 19 weeks gestation of - Primary state, incidental Multigravida of advanced maternal age in second trimester Obesity affecting in second trimester, unspecified obesity type Pre-existing type 2 diabetes mellitus during in first trimester Cervical cerclage suture present in first trimester [facility]* Diagnosis Encounter for anatomic survey- Primary Multigravida of advanced maternal age in second trimester Cervical cerclage suture present in first trimester 19 weeks gestation of state, incidental Obesity affecting in second trimester, unspecified obesity type [facility]* Diagnosis Pre-existing type 2 diabetes mellitus in in second trimester- Primary Diabetes mellitus of mother, complicating , childbirth, or the puerperium, unspecified as to episode of care [facility]* Diagnosis 22 weeks gestation of - Primary state, incidental Multigravida of advanced maternal age in second trimester Obesity affecting in second trimester, unspecified obesity type Pre-existing type 2 diabetes mellitus during in first trimester Vaginal discharge Leukorrhea, not specified as infective [facility]* Diagnosis Encounter for supervision of high risk in first trimester, antepartum Gestational diabetes mellitus in , controlled by oral hypoglycemic drugs History of labor, current , first trimester premature rupture of membranes (PPROM) with unknown onset of labor Type 2 diabetes mellitus during , second trimester AMA (advanced maternal age) multigravida 35+, second trimester- Primary Cervical cerclage suture present in second trimester Supervision of high risk in second trimester Unspecified high-risk Pre-existing type 2 diabetes mellitus in in second trimester Diabetes mellitus of mother, complicating , childbirth, or the puerperium, unspecified as to episode of care Heartburn during in second trimester [facility]* Diagnosis Encounter for supervision of high risk in first trimester, antepartum Gestational diabetes mellitus in , controlled by oral hypoglycemic drugs History of labor, current , first trimester premature rupture of membranes (PPROM) with unknown onset of labor Type 2 diabetes mellitus during , second trimester Encounter for ultrasound to check growth- Primary Encounter for routine screening for malformation using ultrasonics 27 weeks gestation of state, incidental Pre-existing type 2 diabetes mellitus during in first trimester [facility]* Diagnosis Premature rupture of membranes- Primary Premature rupture of membranes in , unspecified as to episode of care Premature rupture of membranes Premature rupture of membranes in , unspecified as to episode of care Postoperative pain Other acute postoperative pain Adjustment reaction with anxiety DAVI (generalized anxiety disorder) Generalized anxiety disorder [facility] Diagnosis care and examination- Primary [facility] Diagnosis Encounter for supervision of high risk in first trimester, antepartum Gestational diabetes mellitus in , controlled by oral hypoglycemic drugs History of labor, current , first trimester premature rupture of membranes (PPROM) with unknown onset of labor Type 2 diabetes mellitus during , second trimester Type 2 diabetes mellitus complicating , antepartum, first trimester- Primary Controlled type 2 diabetes mellitus without complication, without long-term current use of insulin (HCC) [facility]* Diagnosis Encounter for supervision of high risk in first trimester, antepartum Gestational diabetes mellitus in , controlled by oral hypoglycemic drugs History of labor, current , first trimester premature rupture of membranes (PPROM) with unknown onset of labor Type 2 diabetes mellitus during , second trimester care and examination- Primary Routine follow-up anxiety Mental disorders of mother, [facility]* Diagnosis Encounter for supervision of high risk in first trimester, antepartum Gestational diabetes mellitus in , controlled by oral hypoglycemic drugs History of labor, current , first trimester premature rupture of membranes (PPROM) with unknown onset of labor Type 2 diabetes mellitus during , second trimester Acquired deformity of toenail- Primary Unspecified disease of nail [facility]* Diagnosis Encounter for supervision of high risk in first trimester, antepartum Gestational diabetes mellitus in , controlled by oral hypoglycemic drugs History of labor, current , first trimester premature rupture of membranes (PPROM) with unknown onset of labor Type 2 diabetes mellitus during , second trimester Onychomadesis- Primary Other specified disease of nail Pre-existing type 2 diabetes mellitus during in first trimester documented [facility]* Diagnosis Encounter for supervision of high risk in first trimester, antepartum Gestational diabetes mellitus in , controlled by oral hypoglycemic drugs History of labor, current , first trimester premature rupture of membranes (PPROM) with unknown onset of labor Type 2 diabetes mellitus during , second trimester Encounter for immunization- Primary Need for other specified prophylactic vaccination against single bacterial disease Screening for diabetic retinopathy Screening for other eye conditions Asthma during Chronic right-sided low back pain with right-sided sciatica Type 2 diabetes mellitus without complication, unspecified whether alf insulin use (HCC) Generalized anxiety disorder Gastro-esophageal reflux disease without esophagitis Esophageal reflux Nicotine dependence, cigarettes, uncomplicated documented in this encounter [facility]* Diagnosis Encounter for supervision of high risk in first trimester, antepartum (HCC) Gestational diabetes mellitus in , controlled by oral hypoglycemic drugs (HCC) History of labor, current , first trimester (HCC) premature rupture of membranes (PPROM) with unknown onset of labor (HCC) Type 2 diabetes mellitus during , second trimester (HCC) Asthma during (HCC) documented in this encounter [facility]* Diagnosis Encounter for supervision of high risk in first trimester, antepartum (HCC) Gestational diabetes mellitus in , controlled by oral hypoglycemic drugs (HCC) History of labor, current , first trimester (HCC) premature rupture of membranes (PPROM) with unknown onset of labor (HCC) Type 2 diabetes mellitus during , second trimester (HCC) NO SHOW- Primary documented in this encounter [facility] for referral (narrative)* Diagnostic Procedure Only (Routine) - Closed Specialty Diagnoses / Procedures Referred By Contac t Referred To Contact XR IMAGING Diagnoses Acute right-sided low back pain without sciatica Procedures XR LUMBAR GENERAL 3V AP/LAT/L5-S1 RADEX SPINE LUMBOSACRAL 2/3 VIEWS Fercho Perez APRN.SHREDDED FILLER CUTTER OPERATOR [address] [place] [address] Xr Imaging Referral ID Status Reason Start Date Expiration Date V isits Requested Visits Authorized [id number] Closed Auto-Generate d Referral 12/30/2021 01/29/2023 1 1 [facility] for referral (narrative)* Diagnostic Procedure Only (Routine) - Authorized Specialty Diagnoses / Procedures Referred By Contac t Referred To Contact [facility] Diagnoses Multigravida of advanced maternal age in second trimester 15 weeks gestation of Procedures OBSTETRIC ULTRASOUND WHI US PREG UTERUS AFTER 1ST TRIMEST GESTATION Richie Doll MD [address] [place] [address] [facility] [place] [address] Referral ID Status Reason Start Date Expiration Date Visits Requested Visits Authorized [id number] Authorized Auto-Generat ed Referral 3 04/08/2024 1 1 [facility] for referral (narrative)* Diagnostic Procedure Only (Routine) - Pending Review Specialty Diagnoses / Procedures Referred By Contac t Referred To Contact [facility] Diagnoses Encounter for supervision of high risk in first trimester, antepartum Procedures OBSTETRIC ULTRASOUND WHI US PREG UTERUS AFTER 1ST TRIMEST GESTATION Vasu 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 [address] [facility] [place] [address] Referral ID Status Reason Start Date Expiration Date Visits Requested Visits Authorized [id number] Pending Review Auto-Generat ed Referral 09/21/2023 09/20/2024 1 1 [facility] for referral (narrative)* Diagnostic Procedure Only (Routine) - Authorized Specialty Diagnoses / Procedures Referred By Contac t Referred To Contact [facility] Diagnoses Pre-existing type 2 diabetes mellitus during in first trimester Multigravida of advanced maternal age in first trimester Supervision of other high risk pregnancies, first trimester Obesity affecting in first trimester, unspecified obesity type Procedures NUCHAL TRANSLUCENCY WHI US NUCHAL TRANSLUCENCY 1ST GESTATION Mimi Harden MD [facility] [place] [address] [facility] [address] [place] [address] Referral ID Status Reason Start Date Expiration Date Visits Requested Visits Authorized [id number] Authorized Auto-Generat ed Referral 10/14/2023 10/13/2024 1 1 [facility] for referral (narrative)* Diagnostic Procedure Only (Routine) - Closed Specialty Diagnoses / Procedures Referred By Contac t Referred To Contact [facility] Diagnoses Multigravida of advanced maternal age in second trimester Pre-existing type 2 diabetes mellitus during in first trimester Procedures OBSTETRIC ULTRASOUND WHI US PREG UTERUS AFTER 1ST TRIMEST GESTATION Rosaline Sanon MD [address] [place] [address] [facility] [address] [place] [address] Referral ID Status Reason Start Date Expiration Date V isits Requested Visits Authorized [id number] Closed Auto-Generate d Referral 11/27/2023 05/24/2024 1 1 [facility] for referral (narrative)* Diagnostic Procedure Only (Routine) - Authorized Specialty Diagnoses / Procedures Referred By Contac t Referred To Contact [facility] Diagnoses Multigravida of advanced maternal age in second trimester Cervical cerclage suture present in first trimester Procedures OBSTETRIC ULTRASOUND WHI US PREG UTERUS AFTER 1ST TRIMEST GESTATION Rosaline Sanon MD [address] [place] [address] [address] Referral ID Status Reason Start Date Expiration Date Visits Requested Visits Authorized [id number] Authorized Auto-Generat ed Referral 11/27/2023 11/26/2024 1 1 [facility] for referral (narrative)* Diagnostic Procedure Only (Routine) - Authorized Specialty Diagnoses / Procedures Referred By Contac t Referred To Contact [facility] Diagnoses AMA (advanced maternal age) multigravida 35+, second trimester Supervision of high risk in second trimester Pre-existing type 2 diabetes mellitus in in second trimester Procedures OBSTETRIC ULTRASOUND WHI US PREG UTERUS AFTER 1ST TRIMEST GESTATION Mimi Harden MD [address] [place] [address] [facility] [address] [place] [address] Referral ID Status Reason Start Date Expiration Date Visits Requested Visits Authorized [id number] Authorized Auto-Generat ed Referral 02/15/2024 02/14/2025 8 1 [facility] for visit Narrative* Diagnostic Procedure Only (Routine) - Closed Specialty Diagnoses / Procedures Referred By Contac t Referred To Contact XR IMAGING Diagnoses Acute right-sided low back pain without sciatica Procedures XR LUMBAR GENERAL 3V AP/LAT/L5-S1 RADEX SPINE LUMBOSACRAL 2/3 VIEWS Fercho Perez, 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 [address] [place] [address] Xr Imaging Referral ID Status Reason Start Date Expiration Date V isits Requested Visits Authorized [id number] Closed Auto-Generate d Referral 12/30/2021 01/29/2023 1 1 [facility] Summary Purpose Family History No Family History Records FoundNo Family History Records FoundNo Family History Records FoundNo Family History Records FoundNo Family History Records FoundNo Family History Records FoundNo Family History Records FoundNo Family History Records FoundNo Family History Records FoundNo Family History Records FoundNo Family History Records Found Advance Directives No Advanced Directives Records Found Date Activated Date Inactivated Comments 02/15/2024 9:51 PM 02/22/2024 3:40 PM Date Activated Date Inactivated Comments 02/15/2024 9:51 PM 02/22/2024 3:40 PM Reason for Referral Specialty Diagnoses / Procedures Referred By Contac t Referred To Contact Junior Jeong MD [address] [place] [address] Referral ID Status Reason Start Date Expiration Date Visits Re quested Visits Authorized [id number] Closed 1 1 Specialty Diagnoses / Procedures Referred By Contac t Referred To Contact [facility] Diagnoses Acute right-sided low back pain without sciatica Procedures CONSULT TO [facility] OFFICE/OUTPATIENT [facility] MDM 60-74 MINUTES Fercho Perez, 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 [address] [place] [address] Referral ID Status Reason Start Date Expiration Date Visits Requested Visits Authorized [id number] Authorized PCP Requested Referral 12/30/2021 12/30/2022 1 1 Specialty Diagnoses / Procedures Referred By Contac t Referred To Contact [facility] Diagnoses Acute right-sided low back pain without sciatica Procedures CONSULT TO PHYSICAL THERAPY PHYSICAL THERAPY EVALUATION HIGH COMPLEX 45 MINS Fercho Perez, 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 [address] [place] [address] [facility] [address] [place] [address] Referral ID Status Reason Start Date Expiration Date Visits Requested Visits Authorized [id number] Pending Review Auto-Generat ed Referral 12/30/2021 12/30/2022 1 1 Specialty Diagnoses / Procedures Referred By Contac t Referred To Contact XR IMAGING Diagnoses Acute right-sided low back pain without sciatica Procedures XR LUMBAR GENERAL 3V AP/LAT/L5-S1 RADEX SPINE LUMBOSACRAL 2/3 VIEWS Fercho Perez, KYLIE.SHREDDED FILLER CUTTER OPERATOR [address] [place] [address] Xr Imaging Referral ID Status Reason Start Date Expiration Date Visits Requested Visits Authorized [id number] Pending Review Auto-Generat ed Referral 12/30/2021 01/29/2023 1 1 Specialty Diagnoses / Procedures Referred By Contac t Referred To Contact [facility] Diagnoses Acute right-sided low back pain without sciatica Procedures PT REHAB FOLLOW UP ORDER THERAPEUTIC EXERCISES RE, EA 15 MIN. Kimber Slade, PT [facility] [address] [place] [address] Referral ID Status Reason Start Date Expiration Date Visits Requested Visits Authorized [id number] Pending Review PCP Requested Referral Auto-Generate d Referral 01/06/2022 04/06/2022 1 1 Referral ID Status Reason Start Date Expiration Date Visits Re quested Visits Authorized [id number] Closed 1 1 Specialty Diagnoses / Procedures Referred By Contac t Referred To Contact Endocrinology Diagnoses Gestational diabetes mellitus in , controlled by oral hypoglycemic drugs Procedures CONSULT TO ENDOCRINOLOGY OFFICE/OUTPATIENT NEW [facility] MDM 60-74 MINUTES Vasu Gaxiola APRN.TIE UP WORKER [address] [address] Referral ID Status Reason Start Date Expiration Date Visits Requested Visits Authorized [id number] Authorized PCP Requested Referral 3 03/10/2024 1 1 Specialty Diagnoses / Procedures Referred By Contac t Referred To Contact Diagnoses Encounter for supervision of high risk in first trimester, antepartum Gestational diabetes mellitus in , controlled by oral hypoglycemic drugs Procedures CONSULT TO MATERNAL MEDI OFFICE/OUTPATIENT [facility] MDM 60-74 MINUTES Vasu Gaxiola APRN.TIE UP [place] [address] Referral ID Status Reason Start Date Expiration Date Visits Requested Visits Authorized [id number] Authorized PCP Requested Referral Auto-Generate d Referral 3 03/10/2024 1 1 Specialty Diagnoses / Procedures Referred By Contac t Referred To Contact [facility] Diagnoses Encounter for supervision of high risk in first trimester, antepartum Procedures NUCHAL TRANSLUCENCY WHI US NUCHAL TRANSLUCENCY 1ST GESTATION Vasu 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 [address] [id number] [place] [address] Referral ID Status Reason Start Date Expiration Date Visits Requested Visits Authorized [id number] Authorized Auto-Generat ed Referral 3 03/10/2024 1 1 Specialty Diagnoses / Procedures Referred By Contac t Referred To Contact [facility] Diagnoses Encounter for supervision of high risk in first trimester, antepartum Procedures OBSTETRIC ULTRASOUND WHI US PREG UTERUS AFTER 1ST TRIMEST GESTATION Vasu Gaxiola APRN.CNP [address] [place] [address] [address] Referral ID Status Reason Start Date Expiration Date Visits Requested Visits Authorized [id number] Pending Review Auto-Generat ed Referral 3 03/10/2024 1 1 Specialty Diagnoses / Procedures Referred By Contac t Referred To Contact Nutrition Diagnoses 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 alf insulin use (HCC) History of gestational diabetes in prior , currently Procedures CONSULT TO NUTRITION THERAPY MEDICAL NUTRITION ASSMT&IVNTJ INDIV EACH 15 NM MEDICAL NUTRITION ASSMT&IVNTJ INDIV EACH 15 NM MEDICAL NUTRITION ASSMT&IVNTJ INDIV EACH 15 NM MEDICAL NUTRITION ASSMT&IVNTJ INDIV EACH 15 NM Daphney Alcala APRN.TIE UP WORKER [address] [place] [address] Referral ID Status Reason Start Date Expiration Date Visits Requested Visits Authorized [id number] Authorized PCP Requested Referral 3 03/11/2024 1 1 Specialty Diagnoses / Procedures Referred By Contac t Referred To Contact Diagnoses 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 alf insulin use (HCC) History of gestational diabetes in prior , currently Procedures CONSULT TO GESTATIONAL/ [facility] OFFICE/OUTPATIENT [facility] 60-74 MINUTES Daphney Alcala APRN.TIE UP WORKER [address] [place] [address] Referral ID Status Reason Start Date Expiration Date Visits Requested Visits Authorized [id number] Authorized PCP Requested Referral Auto-Generate d Referral 3 03/11/2024 1 1 Specialty Diagnoses / Procedures Referred By Contac t Referred To Contact [facility] Diagnoses Chronic pain syndrome Chronic low back pain with bilateral sciatica, unspecified back pain laterality Procedures CONSULT TO [facility] ([facility]) OFFICE/OUTPATIENT [facility] 60 MINUTES Esther Payne, MOVIE PROJECTIONIST.TIE UP WORKER, DNP [address] [place] [address] Referral ID Status Reason Start Date Expiration Date Visits Requested Visits Authorized [id number] Pending Review PCP Requested Referral 07/23/2023 07/22/2024 1 1 Specialty Diagnoses / Procedures Referred By Contac t Referred To Contact Diagnoses History of labor History of intrauterine Procedures CONSULT TO MATERNAL MEDI OFFICE/OUTPATIENT [facility] 60 MINUTES Vasu Gaxiola, MOVIE PROJECTIONIST.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 [address] Referral ID Status Reason Start Date Expiration Date Visits Requested Visits Authorized [id number] Authorized PCP Requested Referral Auto-Generate d Referral 09/16/2023 09/15/2024 1 1 Specialty Diagnoses / Procedures Referred By Contac t Referred To Contact Ramirez Hammonds DO [address] [place] [address] Referral ID Status Reason Start Date Expiration Date V isits Requested Visits Authorized [id number] Pending Review 1 1 Specialty Diagnoses / Procedures Referred By Contac t Referred To Contact Podiatry Diagnoses Acquired deformity of toenail Procedures CONSULT TO PODIATRY OFFICE/OUTPATIENT [facility] 60 MINUTES Fercho Perez, 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 [address] [place] [address] Referral ID Status Reason Start Date Expiration Date Visits Requested Visits Authorized [id number] Authorized PCP Requested Referral 04/07/2025 1 1 Health Concerns Problem Noted Date Diagnosed Date [facility] - [facility] 03/11/2023 [place] - [place] 03/11/2023 Problem Noted Date Diagnosed Date [facility] - [facility] 03/11/2023 [facility] [place] 03/11/2023 Problem Noted Date Diagnosed Date [facility] - [facility]ON 03/11/2023 [facility] - [place] 03/11/2023 Problem Noted Date Diagnosed Date [facility] - [facility] 03/11/2023 [facility] - [place] 03/11/2023 Problem Noted Date Diagnosed Date [facility] Education - COMMON 03/11/2023 [facility] - [place] 03/11/2023 Problem Noted Date Diagnosed Date [facility] - [facility]ON 03/11/2023 [facility] - [place] 03/11/2023 Problem Noted Date Diagnosed Date [facility] - [facility]ON 03/11/2023 [facility] - [place] 03/11/2023 Problem Noted Date Diagnosed Date [facility] - [facility]ON 03/11/2023 [facility] - [place] 03/11/2023 Problem Noted Date Diagnosed Date [facility] - [facility] 03/11/2023 [facility] - [place] 03/11/2023 Problem Noted Date Diagnosed Date [facility] - [facility] 03/11/2023 [facility] - [place] 03/11/2023 Problem Noted Date Diagnosed Date [facility] - [facility]ON 03/11/2023 [facility] - [place] 03/11/2023 Problem Noted Date Diagnosed Date [facility] - [facility] 03/11/2023 [facility] - [place] 03/11/2023 Problem Noted Date Diagnosed Date [facility] - [facility] 03/11/2023 [facility] - [place] 03/11/2023 Problem Noted Date Diagnosed Date [facility] - [facility]ON 03/11/2023 [facility] - [place] 03/11/2023 Problem Noted Date Diagnosed Date [facility] - [facility]ON 03/11/2023 [facility] - [place] 03/11/2023 Problem Noted Date Diagnosed Date [facility] - [facility]ON 03/11/2023 [facility] - [place] 03/11/2023 Problem Noted Date Diagnosed Date [facility] - COMMON 03/11/2023 [facility] - [place] 03/11/2023 Problem Noted Date Diagnosed Date [facility] - [facility]ON 03/11/2023 [facility] - [place] 03/11/2023 Problem Noted Date Diagnosed Date [facility] - [facility] 03/11/2023 [facility] - [place] 03/11/2023 Problem Noted Date Diagnosed Date [facility] - [facility] 03/11/2023 [facility] - [place] 03/11/2023 Additional Source Comments INFORMATION SOURCE (unrecogn ized section and content) DATE CREATED AUTHOR 01/07/2019 [facility] DATE CREATED AUTHOR AUTHOR'S ORGANIZ ATION 12/29/2019 [facility] DATE CREATED AUTHOR AUTHOR'S ORGANIZ ATION 07/26/2020 [facility] DATE CREATED AUTHOR AUTHOR'S ORGANIZ ATION 02/25/2023 [facility] DATE CREATED AUTHOR AUTHOR'S ORGANIZ ATION 10/31/2023 [facility] DATE CREATED AUTHOR AUTHOR'S ORGANIZ ATION 01/04/2024 [facility] DATE CREATED AUTHOR AUTHOR'S ORGANIZ ATION 04/05/2024 [facility] DATE CREATED AUTHOR AUTHOR'S ORGANIZ ATION 01/31/2025 [facility] DATE CREATED AUTHOR AUTHOR'S ORGANIZ ATION 03/01/2025 [facility] DATE CREATED AUTHOR AUTHOR'S ORGANIZ ATION 03/27/2025 [facility] DATE CREATED AUTHOR AUTHOR'S ORGANIZ ATION 04/01/2025 [facility] Source Comments (unrecognize d section and content) In the event this informatio n is protected by the Federal Confidentiality of Alcohol and Drug Abuse Patient Records regulations: The Federal rules restrict any use of the information to criminally investigate or prosecute any alcohol or drug abuse patient.[facility] the event this information is protected by the Federal Confidentiality of Alcohol and Drug Abuse Patient Records regulations: The Federal rules restrict any use of the information to criminally investigate or prosecute any alcohol or drug abuse patient.[facility] the event this information is protected by the Federal Confidentiality of Alcohol and Drug Abuse Patient Records regulations: The Federal rules restrict any use of the information to criminally investigate or prosecute any alcohol or drug abuse patient.[facility] the event this information is protected by the Federal Confidentiality of Alcohol and Drug Abuse Patient Records regulations: The Federal rules restrict any use of the information to criminally investigate or prosecute any alcohol or drug abuse patient.[facility] the event this information is protected by the Federal Confidentiality of Alcohol and Drug Abuse Patient Records regulations: The Federal rules restrict any use of the information to criminally investigate or prosecute any alcohol or drug abuse patient.[facility] the event this information is protected by the Federal Confidentiality of Alcohol and Drug Abuse Patient Records regulations: The Federal rules restrict any use of the information to criminally investigate or prosecute any alcohol or drug abuse patient.[facility] the event this information is protected by the Federal Confidentiality of Alcohol and Drug Abuse Patient Records regulations: The Federal rules restrict any use of the information to criminally investigate or prosecute any alcohol or drug abuse patient.[facility] the event this information is protected by the Federal Confidentiality of Alcohol and Drug Abuse Patient Records regulations: The Federal rules restrict any use of the information to criminally investigate or prosecute any alcohol or drug abuse patient.[facility] the event this information is protected by the Federal Confidentiality of Alcohol and Drug Abuse Patient Records regulations: The Federal rules restrict any use of the information to criminally investigate or prosecute any alcohol or drug abuse patient.[facility] the event this information is protected by the Federal Confidentiality of Alcohol and Drug Abuse Patient Records regulations: The Federal rules restrict any use of the information to criminally investigate or prosecute any alcohol or drug abuse patient.[facility] the event this information is protected by the Federal Confidentiality of Alcohol and Drug Abuse Patient Records regulations: The Federal rules restrict any use of the information to criminally investigate or prosecute any alcohol or drug abuse patient.[facility] the event this information is protected by the Federal Confidentiality of Alcohol and Drug Abuse Patient Records regulations: The Federal rules restrict any use of the information to criminally investigate or prosecute any alcohol or drug abuse patient.[facility] the event this information is protected by the Federal Confidentiality of Alcohol and Drug Abuse Patient Records regulations: The Federal rules restrict any use of the information to criminally investigate or prosecute any alcohol or drug abuse patient.[facility] Hospital[facility] the event this information is protected by the Federal Confidentiality of Alcohol and Drug Abuse Patient Records regulations: The Federal rules restrict any use of the information to criminally investigate or prosecute any alcohol or drug abuse patient.[facility] Hospital[facility] the event this information is protected by the Federal Confidentiality of Alcohol and Drug Abuse Patient Records regulations: The Federal rules restrict any use of the information to criminally investigate or prosecute any alcohol or drug abuse patient.[facility] Hospital[facility] the event this information is protected by the Federal Confidentiality of Alcohol and Drug Abuse Patient Records regulations: The Federal rules restrict any use of the information to criminally investigate or prosecute any alcohol or drug abuse patient.[facility] Hospital[facility] the event this information is protected by the Federal Confidentiality of Alcohol and Drug Abuse Patient Records regulations: The Federal rules restrict any use of the information to criminally investigate or prosecute any alcohol or drug abuse patient.[facility] Hospital[facility] the event this information is protected by the Federal Confidentiality of Alcohol and Drug Abuse Patient Records regulations: The Federal rules restrict any use of the information to criminally investigate or prosecute any alcohol or drug abuse patient.[facility] Hospital[facility] the event this information is protected by the Federal Confidentiality of Alcohol and Drug Abuse Patient Records regulations: The Federal rules restrict any use of the information to criminally investigate or prosecute any alcohol or drug abuse patient.[facility] HospitalIn the event this information is protected by the Federal Confidentiality of Alcohol and Drug Abuse Patient Records regulations: The Federal rules restrict any use of the information to criminally investigate or prosecute any alcohol or drug abuse patient.[facility] HospitalIn the event this information is protected by the Federal Confidentiality of Alcohol and Drug Abuse Patient Records regulations: The Federal rules restrict any use of the information to criminally investigate or prosecute any alcohol or drug abuse patient.[facility] HospitalIn the event this information is protected by the Federal Confidentiality of Alcohol and Drug Abuse Patient Records regulations: The Federal rules restrict any use of the information to criminally investigate or prosecute any alcohol or drug abuse patient.[facility] HospitalIn the event this information is protected by the Federal Confidentiality of Alcohol and Drug Abuse Patient Records regulations: The Federal rules restrict any use of the information to criminally investigate or prosecute any alcohol or drug abuse patient.[facility] HospitalIn the event this information is protected by the Federal Confidentiality of Alcohol and Drug Abuse Patient Records regulations: The Federal rules restrict any use of the information to criminally investigate or prosecute any alcohol or drug abuse patient.[facility] HospitalIn the event this information is protected by the Federal Confidentiality of Alcohol and Drug Abuse Patient Records regulations: The Federal rules restrict any use of the information to criminally investigate or prosecute any alcohol or drug abuse patient.[facility] HospitalIn the event this information is protected by the Federal Confidentiality of Alcohol and Drug Abuse Patient Records regulations: The Federal rules restrict any use of the information to criminally investigate or prosecute any alcohol or drug abuse patient.[facility] HospitalIn the event this information is protected by the Federal Confidentiality of Alcohol and Drug Abuse Patient Records regulations: The Federal rules restrict any use of the information to criminally investigate or prosecute any alcohol or drug abuse patient.[facility] HospitalIn the event this information is protected by the Federal Confidentiality of Alcohol and Drug Abuse Patient Records regulations: The Federal rules restrict any use of the information to criminally investigate or prosecute any alcohol or drug abuse patient.[facility] HospitalIn the event this information is protected by the Federal Confidentiality of Alcohol and Drug Abuse Patient Records regulations: The Federal rules restrict any use of the information to criminally investigate or prosecute any alcohol or drug abuse patient.[facility] HospitalIn the event this information is protected by the Federal Confidentiality of Alcohol and Drug Abuse Patient Records regulations: The Federal rules restrict any use of the information to criminally investigate or prosecute any alcohol or drug abuse patient.[facility] HospitalIn the event this information is protected by the Federal Confidentiality of Alcohol and Drug Abuse Patient Records regulations: The Federal rules restrict any use of the information to criminally investigate or prosecute any alcohol or drug abuse patient.[facility] HospitalIn the event this information is protected by the Federal Confidentiality of Alcohol and Drug Abuse Patient Records regulations: The Federal rules restrict any use of the information to criminally investigate or prosecute any alcohol or drug abuse patient.[facility] HospitalIn the event this information is protected by the Federal Confidentiality of Alcohol and Drug Abuse Patient Records regulations: The Federal rules restrict any use of the information to criminally investigate or prosecute any alcohol or drug abuse patient.[facility] HospitalIn the event this information is protected by the Federal Confidentiality of Alcohol and Drug Abuse Patient Records regulations: The Federal rules restrict any use of the information to criminally investigate or prosecute any alcohol or drug abuse patient.[facility] HospitalIn the event this information is protected by the Federal Confidentiality of Alcohol and Drug Abuse Patient Records regulations: The Federal rules restrict any use of the information to criminally investigate or prosecute any alcohol or drug abuse patient.[facility] HospitalIn the event this information is protected by the Federal Confidentiality of Alcohol and Drug Abuse Patient Records regulations: The Federal rules restrict any use of the information to criminally investigate or prosecute any alcohol or drug abuse patient.[facility] HospitalIn the event this information is protected by the Federal Confidentiality of Alcohol and Drug Abuse Patient Records regulations: The Federal rules restrict any use of the information to criminally investigate or prosecute any alcohol or drug abuse patient.[facility] HospitalIn the event this information is protected by the Federal Confidentiality of Alcohol and Drug Abuse Patient Records regulations: The Federal rules restrict any use of the information to criminally investigate or prosecute any alcohol or drug abuse patient.[facility] HospitalIn the event this information is protected by the Federal Confidentiality of Alcohol and Drug Abuse Patient Records regulations: The Federal rules restrict any use of the information to criminally investigate or prosecute any alcohol or drug abuse patient.[facility] HospitalIn the event this information is protected by the Federal Confidentiality of Alcohol and Drug Abuse Patient Records regulations: The Federal rules restrict any use of the information to criminally investigate or prosecute any alcohol or drug abuse patient.[facility] HospitalIn the event this information is protected by the Federal Confidentiality of Alcohol and Drug Abuse Patient Records regulations: The Federal rules restrict any use of the information to criminally investigate or prosecute any alcohol or drug abuse patient.[facility] HospitalIn the event this information is protected by the Federal Confidentiality of Alcohol and Drug Abuse Patient Records regulations: The Federal rules restrict any use of the information to criminally investigate or prosecute any alcohol or drug abuse patient.[facility] HospitalIn the event this information is protected by the Federal Confidentiality of Alcohol and Drug Abuse Patient Records regulations: The Federal rules restrict any use of the information to criminally investigate or prosecute any alcohol or drug abuse patient.[facility] HospitalIn the event this information is protected by the Federal Confidentiality of Alcohol and Drug Abuse Patient Records regulations: The Federal rules restrict any use of the information to criminally investigate or prosecute any alcohol or drug abuse patient.[facility] HospitalIn the event this information is protected by the Federal Confidentiality of Alcohol and Drug Abuse Patient Records regulations: The Federal rules restrict any use of the information to criminally investigate or prosecute any alcohol or drug abuse patient.[facility] HospitalIn the event this information is protected by the Federal Confidentiality of Alcohol and Drug Abuse Patient Records regulations: The Federal rules restrict any use of the information to criminally investigate or prosecute any alcohol or drug abuse patient.[facility] HospitalIn the event this information is protected by the Federal Confidentiality of Alcohol and Drug Abuse Patient Records regulations: The Federal rules restrict any use of the information to criminally investigate or prosecute any alcohol or drug abuse patient.[facility] HospitalIn the event this information is protected by the Federal Confidentiality of Alcohol and Drug Abuse Patient Records regulations: The Federal rules restrict any use of the information to criminally investigate or prosecute any alcohol or drug abuse patient.[facility] HospitalIn the event this information is protected by the Federal Confidentiality of Alcohol and Drug Abuse Patient Records regulations: The Federal rules restrict any use of the information to criminally investigate or prosecute any alcohol or drug abuse patient.[facility] HospitalIn the event this information is protected by the Federal Confidentiality of Alcohol and Drug Abuse Patient Records regulations: The Federal rules restrict any use of the information to criminally investigate or prosecute any alcohol or drug abuse patient.[facility] HospitalIn the event this information is protected by the Federal Confidentiality of Alcohol and Drug Abuse Patient Records regulations: The Federal rules restrict any use of the information to criminally investigate or prosecute any alcohol or drug abuse patient.[facility] HospitalIn the event this information is protected by the Federal Confidentiality of Alcohol and Drug Abuse Patient Records regulations: The Federal rules restrict any use of the information to criminally investigate or prosecute any alcohol or drug abuse patient.[facility] HospitalIn the event this information is protected by the Federal Confidentiality of Alcohol and Drug Abuse Patient Records regulations: The Federal rules restrict any use of the information to criminally investigate or prosecute any alcohol or drug abuse patient.[facility] HospitalIn the event this information is protected by the Federal Confidentiality of Alcohol and Drug Abuse Patient Records regulations: The Federal rules restrict any use of the information to criminally investigate or prosecute any alcohol or drug abuse patient.[facility] HospitalIn the event this information is protected by the Federal Confidentiality of Alcohol and Drug Abuse Patient Records regulations: The Federal rules restrict any use of the information to criminally investigate or prosecute any alcohol or drug abuse patient.[facility] HospitalIn the event this information is protected by the Federal Confidentiality of Alcohol and Drug Abuse Patient Records regulations: The Federal rules restrict any use of the information to criminally investigate or prosecute any alcohol or drug abuse patient.[facility] HospitalIn the event this information is protected by the Federal Confidentiality of Alcohol and Drug Abuse Patient Records regulations: The Federal rules restrict any use of the information to criminally investigate or prosecute any alcohol or drug abuse patient.[facility] HospitalIn the event this information is protected by the Federal Confidentiality of Alcohol and Drug Abuse Patient Records regulations: The Federal rules restrict any use of the information to criminally investigate or prosecute any alcohol or drug abuse patient.[facility] HospitalIn the event this information is protected by the Federal Confidentiality of Alcohol and Drug Abuse Patient Records regulations: The Federal rules restrict any use of the information to criminally investigate or prosecute any alcohol or drug abuse patient.[facility] HospitalIn the event this information is protected by the Federal Confidentiality of Alcohol and Drug Abuse Patient Records regulations: The Federal rules restrict any use of the information to criminally investigate or prosecute any alcohol or drug abuse patient.[facility] HospitalIn the event this information is protected by the Federal Confidentiality of Alcohol and Drug Abuse Patient Records regulations: The Federal rules restrict any use of the information to criminally investigate or prosecute any alcohol or drug abuse patient.[facility] HospitalIn the event this information is protected by the Federal Confidentiality of Alcohol and Drug Abuse Patient Records regulations: The Federal rules restrict any use of the information to criminally investigate or prosecute any alcohol or drug abuse patient.[facility] HospitalIn the event this information is protected by the Federal Confidentiality of Alcohol and Drug Abuse Patient Records regulations: The Federal rules restrict any use of the information to criminally investigate or prosecute any alcohol or drug abuse patient.[facility] HospitalIn the event this information is protected by the Federal Confidentiality of Alcohol and Drug Abuse Patient Records regulations: The Federal rules restrict any use of the information to criminally investigate or prosecute any alcohol or drug abuse patient.[facility] HospitalIn the event this information is protected by the Federal Confidentiality of Alcohol and Drug Abuse Patient Records regulations: The Federal rules restrict any use of the information to criminally investigate or prosecute any alcohol or drug abuse patient.[facility] HospitalIn the event this information is protected by the Federal Confidentiality of Alcohol and Drug Abuse Patient Records regulations: The Federal rules restrict any use of the information to criminally investigate or prosecute any alcohol or drug abuse patient.[facility] HospitalIn the event this information is protected by the Federal Confidentiality of Alcohol and Drug Abuse Patient Records regulations: The Federal rules restrict any use of the information to criminally investigate or prosecute any alcohol or drug abuse patient.[facility] HospitalIn the event this information is protected by the Federal Confidentiality of Alcohol and Drug Abuse Patient Records regulations: The Federal rules restrict any use of the information to criminally investigate or prosecute any alcohol or drug abuse patient.[facility] HospitalIn the event this information is protected by the Federal Confidentiality of Alcohol and Drug Abuse Patient Records regulations: The Federal rules restrict any use of the information to criminally investigate or prosecute any alcohol or drug abuse patient.[facility] HospitalIn the event this information is protected by the Federal Confidentiality of Alcohol and Drug Abuse Patient Records regulations: The Federal rules restrict any use of the information to criminally investigate or prosecute any alcohol or drug abuse patient.[facility] HospitalIn the event this information is protected by the Federal Confidentiality of Alcohol and Drug Abuse Patient Records regulations: The Federal rules restrict any use of the information to criminally investigate or prosecute any alcohol or drug abuse patient.[facility] HospitalIn the event this information is protected by the Federal Confidentiality of Alcohol and Drug Abuse Patient Records regulations: The Federal rules restrict any use of the information to criminally investigate or prosecute any alcohol or drug abuse patient.[facility] HospitalIn the event this information is protected by the Federal Confidentiality of Alcohol and Drug Abuse Patient Records regulations: The Federal rules restrict any use of the information to criminally investigate or prosecute any alcohol or drug abuse patient.[facility] HospitalIn the event this information is protected by the Federal Confidentiality of Alcohol and Drug Abuse Patient Records regulations: The Federal rules restrict any use of the information to criminally investigate or prosecute any alcohol or drug abuse patient.[facility] HospitalIn the event this information is protected by the Federal Confidentiality of Alcohol and Drug Abuse Patient Records regulations: The Federal rules restrict any use of the information to criminally investigate or prosecute any alcohol or drug abuse patient.[facility] HospitalIn the event this information is protected by the Federal Confidentiality of Alcohol and Drug Abuse Patient Records regulations: The Federal rules restrict any use of the information to criminally investigate or prosecute any alcohol or drug abuse patient.[facility] HospitalIn the event this information is protected by the Federal Confidentiality of Alcohol and Drug Abuse Patient Records regulations: The Federal rules restrict any use of the information to criminally investigate or prosecute any alcohol or drug abuse patient.[facility] HospitalIn the event this information is protected by the Federal Confidentiality of Alcohol and Drug Abuse Patient Records regulations: The Federal rules restrict any use of the information to criminally investigate or prosecute any alcohol or drug abuse patient.[facility] HospitalIn the event this information is protected by the Federal Confidentiality of Alcohol and Drug Abuse Patient Records regulations: The Federal rules restrict any use of the information to criminally investigate or prosecute any alcohol or drug abuse patient.[facility] HospitalIn the event this information is protected by the Federal Confidentiality of Alcohol and Drug Abuse Patient Records regulations: The Federal rules restrict any use of the information to criminally investigate or prosecute any alcohol or drug abuse patient.[facility] HospitalIn the event this information is protected by the Federal Confidentiality of Alcohol and Drug Abuse Patient Records regulations: The Federal rules restrict any use of the information to criminally investigate or prosecute any alcohol or drug abuse patient.[facility] HospitalIn the event this information is protected by the Federal Confidentiality of Alcohol and Drug Abuse Patient Records regulations: The Federal rules restrict any use of the information to criminally investigate or prosecute any alcohol or drug abuse patient.[facility] HospitalIn the event this information is protected by the Federal Confidentiality of Alcohol and Drug Abuse Patient Records regulations: The Federal rules restrict any use of the information to criminally investigate or prosecute any alcohol or drug abuse patient.[facility] HospitalIn the event this information is protected by the Federal Confidentiality of Alcohol and Drug Abuse Patient Records regulations: The Federal rules restrict any use of the information to criminally investigate or prosecute any alcohol or drug abuse patient.[facility] HospitalIn the event this information is protected by the Federal Confidentiality of Alcohol and Drug Abuse Patient Records regulations: The Federal rules restrict any use of the information to criminally investigate or prosecute any alcohol or drug abuse patient.[facility] HospitalIn the event this information is protected by the Federal Confidentiality of Alcohol and Drug Abuse Patient Records regulations: The Federal rules restrict any use of the information to criminally investigate or prosecute any alcohol or drug abuse patient.[facility] HospitalIn the event this information is protected by the Federal Confidentiality of Alcohol and Drug Abuse Patient Records regulations: The Federal rules restrict any use of the information to criminally investigate or prosecute any alcohol or drug abuse patient.[facility] HospitalIn the event this information is protected by the Federal Confidentiality of Alcohol and Drug Abuse Patient Records regulations: The Federal rules restrict any use of the information to criminally investigate or prosecute any alcohol or drug abuse patient.[facility] HospitalIn the event this information is protected by the Federal Confidentiality of Alcohol and Drug Abuse Patient Records regulations: The Federal rules restrict any use of the information to criminally investigate or prosecute any alcohol or drug abuse patient.[facility] HospitalIn the event this information is protected by the Federal Confidentiality of Alcohol and Drug Abuse Patient Records regulations: The Federal rules restrict any use of the information to criminally investigate or prosecute any alcohol or drug abuse patient.[facility] HospitalIn the event this information is protected by the Federal Confidentiality of Alcohol and Drug Abuse Patient Records regulations: The Federal rules restrict any use of the information to criminally investigate or prosecute any alcohol or drug abuse patient.[facility] HospitalIn the event this information is protected by the Federal Confidentiality of Alcohol and Drug Abuse Patient Records regulations: The Federal rules restrict any use of the information to criminally investigate or prosecute any alcohol or drug abuse patient.[facility] HospitalIn the event this information is protected by the Federal Confidentiality of Alcohol and Drug Abuse Patient Records regulations: The Federal rules restrict any use of the information to criminally investigate or prosecute any alcohol or drug abuse patient.[facility] HospitalIn the event this information is protected by the Federal Confidentiality of Alcohol and Drug Abuse Patient Records regulations: The Federal rules restrict any use of the information to criminally investigate or prosecute any alcohol or drug abuse patient.[facility] HospitalIn the event this information is protected by the Federal Confidentiality of Alcohol and Drug Abuse Patient Records regulations: The Federal rules restrict any use of the information to criminally investigate or prosecute any alcohol or drug abuse patient.[facility] HospitalIn the event this information is protected by the Federal Confidentiality of Alcohol and Drug Abuse Patient Records regulations: The Federal rules restrict any use of the information to criminally investigate or prosecute any alcohol or drug abuse patient.[facility] HospitalIn the event this information is protected by the Federal Confidentiality of Alcohol and Drug Abuse Patient Records regulations: The Federal rules restrict any use of the information to criminally investigate or prosecute any alcohol or drug abuse patient.[facility] HospitalIn the event this information is protected by the Federal Confidentiality of Alcohol and Drug Abuse Patient Records regulations: The Federal rules restrict any use of the information to criminally investigate or prosecute any alcohol or drug abuse patient.[facility] HospitalIn the event this information is protected by the Federal Confidentiality of Alcohol and Drug Abuse Patient Records regulations: The Federal rules restrict any use of the information to criminally investigate or prosecute any alcohol or drug abuse patient.[facility] HospitalIn the event this information is protected by the Federal Confidentiality of Alcohol and Drug Abuse Patient Records regulations: The Federal rules restrict any use of the information to criminally investigate or prosecute any alcohol or drug abuse patient.[facility] HospitalIn the event this information is protected by the Federal Confidentiality of Alcohol and Drug Abuse Patient Records regulations: The Federal rules restrict any use of the information to criminally investigate or prosecute any alcohol or drug abuse patient.[facility] HospitalIn the event this information is protected by the Federal Confidentiality of Alcohol and Drug Abuse Patient Records regulations: The Federal rules restrict any use of the information to criminally investigate or prosecute any alcohol or drug abuse patient.[facility] HospitalIn the event this information is protected by the Federal Confidentiality of Alcohol and Drug Abuse Patient Records regulations: The Federal rules restrict any use of the information to criminally investigate or prosecute any alcohol or drug abuse patient.[facility] HospitalIn the event this information is protected by the Federal Confidentiality of Alcohol and Drug Abuse Patient Records regulations: The Federal rules restrict any use of the information to criminally investigate or prosecute any alcohol or drug abuse patient.[facility] HospitalIn the event this information is protected by the Federal Confidentiality of Alcohol and Drug Abuse Patient Records regulations: The Federal rules restrict any use of the information to criminally investigate or prosecute any alcohol or drug abuse patient.[facility] HospitalIn the event this information is protected by the Federal Confidentiality of Alcohol and Drug Abuse Patient Records regulations: The Federal rules restrict any use of the information to criminally investigate or prosecute any alcohol or drug abuse patient.[facility] HospitalIn the event this information is protected by the Federal Confidentiality of Alcohol and Drug Abuse Patient Records regulations: The Federal rules restrict any use of the information to criminally investigate or prosecute any alcohol or drug abuse patient.[facility] HospitalIn the event this information is protected by the Federal Confidentiality of Alcohol and Drug Abuse Patient Records regulations: The Federal rules restrict any use of the information to criminally investigate or prosecute any alcohol or drug abuse patient.[facility] HospitalIn the event this information is protected by the Federal Confidentiality of Alcohol and Drug Abuse Patient Records regulations: The Federal rules restrict any use of the information to criminally investigate or prosecute any alcohol or drug abuse patient.[facility] HospitalIn the event this information is protected by the Federal Confidentiality of Alcohol and Drug Abuse Patient Records regulations: The Federal rules restrict any use of the information to criminally investigate or prosecute any alcohol or drug abuse patient.[facility] HospitalIn the event this information is protected by the Federal Confidentiality of Alcohol and Drug Abuse Patient Records regulations: The Federal rules restrict any use of the information to criminally investigate or prosecute any alcohol or drug abuse patient.[facility] HospitalIn the event this information is protected by the Federal Confidentiality of Alcohol and Drug Abuse Patient Records regulations: The Federal rules restrict any use of the information to criminally investigate or prosecute any alcohol or drug abuse patient.[facility] HospitalIn the event this information is protected by the Federal Confidentiality of Alcohol and Drug Abuse Patient Records regulations: The Federal rules restrict any use of the information to criminally investigate or prosecute any alcohol or drug abuse patient.[facility] HospitalIn the event this information is protected by the Federal Confidentiality of Alcohol and Drug Abuse Patient Records regulations: The Federal rules restrict any use of the information to criminally investigate or prosecute any alcohol or drug abuse patient.[facility] HospitalIn the event this information is protected by the Federal Confidentiality of Alcohol and Drug Abuse Patient Records regulations: The Federal rules restrict any use of the information to criminally investigate or prosecute any alcohol or drug abuse patient.[facility] HospitalIn the event this information is protected by the Federal Confidentiality of Alcohol and Drug Abuse Patient Records regulations: The Federal rules restrict any use of the information to criminally investigate or prosecute any alcohol or drug abuse patient.[facility] HospitalIn the event this information is protected by the Federal Confidentiality of Alcohol and Drug Abuse Patient Records regulations: The Federal rules restrict any use of the information to criminally investigate or prosecute any alcohol or drug abuse patient.[facility] HospitalIn the event this information is protected by the Federal Confidentiality of Alcohol and Drug Abuse Patient Records regulations: The Federal rules restrict any use of the information to criminally investigate or prosecute any alcohol or drug abuse patient.[facility] HospitalIn the event this information is protected by the Federal Confidentiality of Alcohol and Drug Abuse Patient Records regulations: The Federal rules restrict any use of the information to criminally investigate or prosecute any alcohol or drug abuse patient.[facility] HospitalIn the event this information is protected by the Federal Confidentiality of Alcohol and Drug Abuse Patient Records regulations: The Federal rules restrict any use of the information to criminally investigate or prosecute any alcohol or drug abuse patient.[facility] HospitalIn the event this information is protected by the Federal Confidentiality of Alcohol and Drug Abuse Patient Records regulations: The Federal rules restrict any use of the information to criminally investigate or prosecute any alcohol or drug abuse patient.[facility] HospitalIn the event this information is protected by the Federal Confidentiality of Alcohol and Drug Abuse Patient Records regulations: The Federal rules restrict any use of the information to criminally investigate or prosecute any alcohol or drug abuse patient.[facility] HospitalIn the event this information is protected by the Federal Confidentiality of Alcohol and Drug Abuse Patient Records regulations: The Federal rules restrict any use of the information to criminally investigate or prosecute any alcohol or drug abuse patient.[facility] HospitalIn the event this information is protected by the Federal Confidentiality of Alcohol and Drug Abuse Patient Records regulations: The Federal rules restrict any use of the information to criminally investigate or prosecute any alcohol or drug abuse patient.[facility] HospitalIn the event this information is protected by the Federal Confidentiality of Alcohol and Drug Abuse Patient Records regulations: The Federal rules restrict any use of the information to criminally investigate or prosecute any alcohol or drug abuse patient.[facility] HospitalIn the event this information is protected by the Federal Confidentiality of Alcohol and Drug Abuse Patient Records regulations: The Federal rules restrict any use of the information to criminally investigate or prosecute any alcohol or drug abuse patient.[facility] HospitalIn the event this information is protected by the Federal Confidentiality of Alcohol and Drug Abuse Patient Records regulations: The Federal rules restrict any use of the information to criminally investigate or prosecute any alcohol or drug abuse patient.[facility] HospitalIn the event this information is protected by the Federal Confidentiality of Alcohol and Drug Abuse Patient Records regulations: The Federal rules restrict any use of the information to criminally investigate or prosecute any alcohol or drug abuse patient.[facility] HospitalIn the event this information is protected by the Federal Confidentiality of Alcohol and Drug Abuse Patient Records regulations: The Federal rules restrict any use of the information to criminally investigate or prosecute any alcohol or drug abuse patient.[facility] HospitalIn the event this information is protected by the Federal Confidentiality of Alcohol and Drug Abuse Patient Records regulations: The Federal rules restrict any use of the information to criminally investigate or prosecute any alcohol or drug abuse patient.[facility] HospitalIn the event this information is protected by the Federal Confidentiality of Alcohol and Drug Abuse Patient Records regulations: The Federal rules restrict any use of the information to criminally investigate or prosecute any alcohol or drug abuse patient.[facility] HospitalIn the event this information is protected by the Federal Confidentiality of Alcohol and Drug Abuse Patient Records regulations: The Federal rules restrict any use of the information to criminally investigate or prosecute any alcohol or drug abuse patient.[facility] HospitalIn the event this information is protected by the Federal Confidentiality of Alcohol and Drug Abuse Patient Records regulations: The Federal rules restrict any use of the information to criminally investigate or prosecute any alcohol or drug abuse patient.[facility] HospitalIn the event this information is protected by the Federal Confidentiality of Alcohol and Drug Abuse Patient Records regulations: The Federal rules restrict any use of the information to criminally investigate or prosecute any alcohol or drug abuse patient.[facility] HospitalIn the event this information is protected by the Federal Confidentiality of Alcohol and Drug Abuse Patient Records regulations: The Federal rules restrict any use of the information to criminally investigate or prosecute any alcohol or drug abuse patient.[facility] HospitalIn the event this information is protected by the Federal Confidentiality of Alcohol and Drug Abuse Patient Records regulations: The Federal rules restrict any use of the information to criminally investigate or prosecute any alcohol or drug abuse patient.[facility] HospitalIn the event this information is protected by the Federal Confidentiality of Alcohol and Drug Abuse Patient Records regulations: The Federal rules restrict any use of the information to criminally investigate or prosecute any alcohol or drug abuse patient.[facility] HospitalIn the event this information is protected by the Federal Confidentiality of Alcohol and Drug Abuse Patient Records regulations: The Federal rules restrict any use of the information to criminally investigate or prosecute any alcohol or drug abuse patient.[facility] HospitalIn the event this information is protected by the Federal Confidentiality of Alcohol and Drug Abuse Patient Records regulations: The Federal rules restrict any use of the information to criminally investigate or prosecute any alcohol or drug abuse patient.[facility] HospitalIn the event this information is protected by the Federal Confidentiality of Alcohol and Drug Abuse Patient Records regulations: The Federal rules restrict any use of the information to criminally investigate or prosecute any alcohol or drug abuse patient.[facility] HospitalIn the event this information is protected by the Federal Confidentiality of Alcohol and Drug Abuse Patient Records regulations: The Federal rules restrict any use of the information to criminally investigate or prosecute any alcohol or drug abuse patient.[facility] HospitalIn the event this information is protected by the Federal Confidentiality of Alcohol and Drug Abuse Patient Records regulations: The Federal rules restrict any use of the information to criminally investigate or prosecute any alcohol or drug abuse patient.[facility] HospitalIn the event this information is protected by the Federal Confidentiality of Alcohol and Drug Abuse Patient Records regulations: The Federal rules restrict any use of the information to criminally investigate or prosecute any alcohol or drug abuse patient.[facility] HospitalIn the event this information is protected by the Federal Confidentiality of Alcohol and Drug Abuse Patient Records regulations: The Federal rules restrict any use of the information to criminally investigate or prosecute any alcohol or drug abuse patient.[facility] HospitalIn the event this information is protected by the Federal Confidentiality of Alcohol and Drug Abuse Patient Records regulations: The Federal rules restrict any use of the information to criminally investigate or prosecute any alcohol or drug abuse patient.[facility] HospitalIn the event this information is protected by the Federal Confidentiality of Alcohol and Drug Abuse Patient Records regulations: The Federal rules restrict any use of the information to criminally investigate or prosecute any alcohol or drug abuse patient.[facility] HospitalIn the event this information is protected by the Federal Confidentiality of Alcohol and Drug Abuse Patient Records regulations: The Federal rules restrict any use of the information to criminally investigate or prosecute any alcohol or drug abuse patient.[facility] HospitalIn the event this information is protected by the Federal Confidentiality of Alcohol and Drug Abuse Patient Records regulations: The Federal rules restrict any use of the information to criminally investigate or prosecute any alcohol or drug abuse patient.[facility] HospitalIn the event this information is protected by the Federal Confidentiality of Alcohol and Drug Abuse Patient Records regulations: The Federal rules restrict any use of the information to criminally investigate or prosecute any alcohol or drug abuse patient.[facility] HospitalIn the event this information is protected by the Federal Confidentiality of Alcohol and Drug Abuse Patient Records regulations: The Federal rules restrict any use of the information to criminally investigate or prosecute any alcohol or drug abuse patient.[facility] HospitalIn the event this information is protected by the Federal Confidentiality of Alcohol and Drug Abuse Patient Records regulations: The Federal rules restrict any use of the information to criminally investigate or prosecute any alcohol or drug abuse patient.[facility] HospitalIn the event this information is protected by the Federal Confidentiality of Alcohol and Drug Abuse Patient Records regulations: The Federal rules restrict any use of the information to criminally investigate or prosecute any alcohol or drug abuse patient.[facility] Reason for Visit (unrecogniz ed section and content) Reason Comments Diabetes Reason Comments Patient Update Reason Comments Diabetes Reason Comments Diabetes Nicotine Dependence Reason Onset Date Comments Refill Request 10/11/2021 Reason Onset Date Comments Refill Request 10/18/2021 Reason Onset Date Comments Refill Request 10/23/2021 Reason Comments F/U 3 Month Reason Onset Date Comments Refill Request 12/13/2021 Reason Comments Back Pain Reason Onset Date Comments Refill Request 12/24/2021 Reason Comments Pain, Back Reason Onset Date Comments Refill Request 12/23/2021 Reason Comments Back Pain ER follow up Reason Comments ER FYI ER provider called w ith FYI Reason Comments PT Eval Specialty Diagnoses / Procedures Referred By Lana t Referred To Contact [facility] Diagnoses Acute right-sided low back pain without sciatica Procedures CONSULT TO PHYSICAL THERAPY PHYSICAL THERAPY EVALUATION HIGH COMPLEX 45 MINS Fercho Perez, 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 [address] [place] [address] [facility] [address] [place] [id number] Referral ID Status Reason Start Date Expiration Date V isits Requested Visits Authorized [id number] Closed Auto-Generate d Referral 12/30/2021 04/23/2022 1 1 Reason Onset Date Comments Refill Request 01/31/2022 Reason Onset Date Comments Refill Request 02/01/2022 Reason Onset Date Comments Refill Request 02/03/2022 Reason Onset Date Comments Refill Request 03/08/2022 Reason Comments Follow Up Reason Onset Date Comments Refill Request 04/12/2022 Reason Comments Upper Respiratory Infection Reason Comments Follow Up Reason Comments Established Patient Diabetes and Medicat ion follow-up Reason Comments Appointment Reason Onset Date Comments Refill Request 11/20/2022 Reason Comments Medication Request Pain meds for dental work 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 [address] [facility] [address] [place] [address] Referral ID Status Reason Start Date Expiration Date V isits Requested Visits Authorized [id number] Closed Auto-Generate d Referral 03/11/2023 03/10/2024 1 1 Reason Onset Date Comments Refill Request 04/06/2023 Reason Comments Blood Sugar Reading Reason Onset Date Comments Care 04/09/2023 Specialty Diagnoses / Procedures Referred By Contac t Referred To Contact Diagnoses Encounter for supervision of high risk in first trimester, antepartum Gestational diabetes mellitus in , controlled by oral hypoglycemic drugs Procedures CONSULT TO MATERNAL MEDI OFFICE/OUTPATIENT NEW HIGH MDM 60-74 MINUTES Vasu 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 [address] Referral ID Status Reason Start Date Expiration Date V isits Requested Visits Authorized [id number] Closed PCP Requested Referral Auto-Generated Referral 03/11/2023 03/10/2024 1 1 Reason Comments Ob Delivery Note Reason Comments Results Reason Comments Early 16 week demise Reason Onset Date Comments Refill Request 04/28/2023 Reason Onset Date Comments Refill Request 06/30/2023 Reason Comments Chronic Pain Chronic low back alli n Specialty Diagnoses / Procedures Referred By Contac t Referred To Contact [facility] Diagnoses Chronic right-sided low back pain with right-sided sciatica Procedures CONSULT TO [facility] (CHRONIC PAIN) OFFICE/OUTPATIENT NEW HIGH MDM 60 MINUTES Junior Jeong MD [address] [place] [address] [address] [address] [place] [address] Referral ID Status Reason Start Date Expiration Date V isits Requested Visits Authorized [id number] Closed PCP Requested Referral 06/23/2023 05/24/2024 1 1 Reason Comments Nausea & Vomiting Reason Comments Missed Menses Specialty Diagnoses / Procedures Referred By Contac t Referred To Contact Diagnoses Less than 8 weeks gestation of Procedures CONSULT TO INDUCTION HEATING EQUIPMENT SETTER OFFICE/OUTPATIENT [facility] 60-74 MINUTES Junior Jeong MD [address] [place] [id number] Referral ID Status Reason Start Date Expiration Date V isits Requested Visits Authorized [id number] Closed PCP Requested Referral Auto-Generated Referral 02/03/2023 02/03/2024 1 1 Reason Comments PRAF Initial PRAF Reason Comments Follow Up 3 month follow up Reason Comments Orders Reason Comments Gestational Diabetes Reason Comments Refill Request Reason Onset Date Comments Care 10/14/2023 Reason Comments Consult Specialty Diagnoses / Procedures Referred By Contac t Referred To Contact Diagnoses History of labor History of intrauterine Procedures CONSULT TO MATERNAL MEDI OFFICE/OUTPATIENT [facility] 60 MINUTES Vasu Gaxiola APRN.KATHI [address] [address] Referral ID Status Reason Start Date Expiration Date V isits Requested Visits Authorized [id number] Closed PCP Requested Referral Auto-Generated Referral 09/16/2023 09/15/2024 1 1 Reason Onset Date Comments Care 11/09/2023 Specialty Diagnoses / Procedures Referred By Contac t Referred To Contact [facility] Diagnoses Encounter for supervision of high risk in first trimester, antepartum Procedures OBSTETRIC ULTRASOUND WHI US PREG UTERUS AFTER 1ST TRIMEST GESTATION Vasu Gaxiola APRN.CNP [address] [address] [facility] [address] [place] [address] Referral ID Status Reason Start Date Expiration Date V isits Requested Visits Authorized [id number] Closed Auto-Generate d Referral 11/27/2023 05/24/2024 1 1 Reason Onset Date Comments Care 11/27/2023 Reason Onset Date Comments Care 12/21/2023 Specialty Diagnoses / Procedures Referred By Contac t Referred To Contact [facility] Diagnoses Multigravida of advanced maternal age in second trimester Cervical cerclage suture present in first trimester Procedures OBSTETRIC ULTRASOUND WHI US PREG UTERUS AFTER 1ST TRIMEST GESTATION Rosaline Sanon MD [address] [place] [address] [facility] [address] [place] [address] Referral ID Status Reason Start Date Expiration Date V isits Requested Visits Authorized [id number] Closed Auto-Generate d Referral 11/27/2023 11/26/2024 1 1 Reason Comments BG Log Reminder Reason Onset Date Comments Care 01/07/2024 Reason Comments no BG data last week Reason Onset Date Comments Care 02/15/2024 Specialty Diagnoses / Procedures Referred By Contac t Referred To Contact [facility] Diagnoses Multigravida of advanced maternal age in second trimester Pre-existing type 2 diabetes mellitus during in first trimester Procedures OBSTETRIC ULTRASOUND WHI US PREG UTERUS AFTER 1ST TRIMEST GESTATION Rosaline Sanon MD [address] [place] [address] [facility] [address] [place] [address] Referral ID Status Reason Start Date Expiration Date V isits Requested Visits Authorized [id number] Closed Auto-Generate d Referral 11/27/2023 05/24/2024 1 1 Reason Comments Rupture of Membranes Specialty Diagnoses / Procedures Referred By Contac t Referred To Contact Diagnoses Premature rupture of membranes Procedures . Chacha Miranda MD [address] [address] [facility] [facility] [address] [place] [address] Referral ID Status Reason Start Date Expiration Date Visits Re quested Visits Authorized [id number] 1 1 Reason Comments Care BP and incision chec k Reason Onset Date Comments Refill Request 03/08/2024 Reason Comments Routine Reason Comments Ingrown Toenail Reason Comments New Nail Check Specialty Diagnoses / Procedures Referred By Contac t Referred To Contact [facility] Diagnoses Type 2 diabetes mellitus complicating , antepartum, first trimester Procedures CONSULT PANEL TO ORTHOPAEDICS OFFICE/OUTPATIENT NEW HIGH MDM 60 MINUTES Adeel Ramirez, DO [address] [place] [address] Referral ID Status Reason Start Date Expiration Date V isits Requested Visits Authorized [id number] Closed PCP Requested Referral 04/06/2024 04/06/2025 1 1 Reason Comments Physical Reason Comments Spirometry Specialty Diagnoses / Procedures Referred By Lana t Referred To [facility] Diagnoses Asthma during (HCC) Procedures SPIROMETRY - BASELINE AND POST DILATOR BRNCDILAT RSPSE SPMTRY PRE&POST-BRNCDILAT ADMN Fercho Perez APRN.SHREDDED FILLER CUTTER OPERATOR [address] [place] [address] Phone: tel: fax: [facility] [address] [place] [address] Referral ID Status Reason Start Date Expiration Date V isits Requested Visits Authorized [id number] Closed Auto-Generate d Referral 08/05/2024 09/04/2025 1 1 Reason Comments No Show Care Teams (unrecognized sec tion and content) 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 Start Date End Date Junior Jeong MD [address] [place], [place] [phone] PCP - General Internal Medicine 06/18/21 [facility] [address] [place], [place] [id number] Pharmacist Pharmacy 11/22/20 [facility] [address] [place], [place] [id number] Pharmacist Pharmacy 12/21/20 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 Start Date End Date Junior Jeong MD [address] [place] [address] PCP - General Internal Medicine 06/18/21 JacJanessa chavez, [facility] [address] [facility] [place] [address] Pharmacist Pharmacy 11/22/20 [place]ox[place], Vasu, [facility] [address] [facility] [place] [address] Pharmacist Pharmacy 12/21/20 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 Start Date End Date Junior Jeong MD [address] [facility] [place] [address] PCP - General Internal Medicine 06/18/21 Janessa Lara, [facility] [address] [facility] [place] [address] Pharmacist Pharmacy 11/22/20 Vasu Orozco, [facility] [address] [facility] [place] [address] Pharmacist Pharmacy 12/21/20 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 Start Date End Date Junior Jeong MD [address] [facility] [place] [address] PCP - General Internal Medicine 06/18/21 JacJanessa chavez, [facility] [address] [facility] [place] [address] Pharmacist Pharmacy 11/22/20 Vasu Orozco, [facility] [address] [facility] [place] [address] Pharmacist Pharmacy 12/21/20 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 Start Date End Date Junior Jeong MD [address] [facility] [place] [address] PCP - General Internal Medicine 06/18/21 Vasu Orozco, [facility] [address] [facility] [place] [address] Pharmacist Pharmacy 12/21/20 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 Start Date End Date Junior Jeong MD [address] [facility] [place] [address] PCP - General Internal Medicine 06/18/21 [facility] [address] [place] [address] Pharmacist Pharmacy 12/21/20 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 Start Date End Date Junior Jeong MD [address] [facility] [place] [address] PCP - General Internal Medicine 06/18/21 [facility] [address] [facility] [place] [address] Pharmacist Pharmacy 12/21/20 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 Start Date End Date Junior Jeong MD [address] [facility] [place] [address] PCP - General Internal Medicine 06/18/21 YandelVasu carrollDo[facility] [address] [place] [address] Pharmacist Pharmacy 12/21/20 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 Start Date End Date Junior Jeong MD [address] [facility] [place] [address] PCP - General Internal Medicine 06/18/21 [facility] [address] [facility] [place] [address] Pharmacist Pharmacy 12/21/20 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 Start Date End Date Junior Jeong MD [address] [facility] [place] [address] PCP - General Internal Medicine 06/18/21 [facility] [address] [facility] [place] [address] Pharmacist Pharmacy 12/21/20 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 Start Date End Date Junior Jeong MD [address] [facility] [place] [address] PCP - General Internal Medicine 06/18/21 [facility] [address] [facility] [place] [address] Pharmacist Pharmacy 12/21/20 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 Start Date End Date Junior Jeong MD [address] [facility] [place] [address] PCP - General Internal Medicine 06/18/21 [facility] [address] [facility] [place] [address] Pharmacist Pharmacy 12/21/20 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 Start Date End Date Junior Jeong MD [address] [facility] [place] [address] PCP - General Internal Medicine 06/18/21 [facility] [address] [facility] [place] [address] Pharmacist Pharmacy 12/21/20 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 Start Date End Date Junior Jeong MD [address] [facility] [place] [address] PCP - General Internal Medicine 06/18/21 [facility] [address] [facility] [place] [address] Pharmacist Pharmacy 12/21/20 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 Start Date End Date Junior Jeong MD [address] [facility] [place] [address] PCP - General Internal Medicine 06/18/21 YandelVasu, [facility] [address] [facility] [place] [address] Pharmacist Pharmacy 12/21/20 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 Start Date End Date Junior Jeong MD [facility] [place] [address] PCP - General Internal Medicine 06/18/21 Vasu Orozco, [facility] [address] [facility] [place] [address] Pharmacist Pharmacy 12/21/20 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 Start Date End Date Junior Jeong MD [address] [place] [address], [place] [address] PCP - General Internal Medicine 06/18/21 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 Start Date End Date Junior Jeong MD [address] [place] [address], [place] [address] PCP - General Internal Medicine 06/18/21 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 Start Date End Date Junior Jeong MD [address] [place] [address], [place] [address] PCP - General Internal Medicine 06/18/21 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 Start Date End Date Junior Jeong MD [address] [place] [address], [place] [address] PCP - General Internal Medicine 06/18/21 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 Start Date End Date Junior Jeong MD [address] [place] [address], [place] [address] PCP - General Internal Medicine 06/18/21 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 Start Date End Date Junior Jeong MD [address] [place] [address], [place] [address] PCP - General Internal Medicine 06/18/21 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 Start Date End Date Junior Jeong MD [address] [place] [address] PCP - General Internal Medicine 06/18/21 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 Start Date End Date Junior Jeong MD [address] [place] [address] PCP - General Internal Medicine 06/18/21 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 Start Date End Date Junior Jeong MD [address] [place] [address] PCP - General Internal Medicine 06/18/21 [facility]andelVasu [place] [address] [place] [address] Pharmacist Pharmacy 08/05/22 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 Start Date End Date Junior Jeong MD [address] [place] [address] PCP - General Internal Medicine 06/18/21 [facility]u [place] [address] [place] [address] Pharmacist Pharmacy 08/05/22 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 Start Date End Date Junior Jeong MD [address] [place] [address] PCP - General Internal Medicine 06/18/21 YandelVasu [place] [address] [place] [address] Pharmacist Pharmacy 08/05/22 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 Start Date End Date Junior Jeong MD [address] [place] [address] PCP - General Internal Medicine 06/18/21 [place] [address] [place] [address] Pharmacist Pharmacy 08/05/22 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 Start Date End Date Junior Jeong MD [address] [place] [address] PCP - General Internal Medicine 06/18/21 [place] [address] [place] [address] Pharmacist Pharmacy 08/05/22 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 Start Date End Date Junior Jeong MD [address] [place] [address] PCP - General Internal Medicine 06/18/21 [place] [address] [place] [address] Pharmacist Pharmacy 08/05/22 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 Start Date End Date Junior Jeong MD [address] [place] [address] PCP - General Internal Medicine 06/18/21 [place] [address] [place] [address] Pharmacist Pharmacy 08/05/22 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 Start Date End Date Junior Jeong MD [address] [place] [address] PCP - General Internal Medicine 06/18/21 [place] [address] [place] [address] Pharmacist Pharmacy 08/05/22 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 Start Date End Date Junior Jeong MD [address] [place] [address] PCP - General Internal Medicine 06/18/21 [place] [address] [place] [address] Pharmacist Pharmacy 08/05/22 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 Start Date End Date Junior Jeong MD [address] [place] [address] PCP - General Internal Medicine 06/18/21 [place] [address] [place] [address] Pharmacist Pharmacy 08/05/22 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 Start Date End Date Junior Jeong MD [address] [place] [address] PCP - General Internal Medicine 06/18/21 Yandel [place] [address] [place] [address] Pharmacist Pharmacy 08/05/22 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 Start Date End Date Junior Jeong MD [address] [place] [address] PCP - General Internal Medicine 06/18/21 [place] [address] [place] [address] Pharmacist Pharmacy 08/05/22 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 Start Date End Date Junior Jeong MD [address] [place] [address] PCP - General Internal Medicine 06/18/21 [place]Vasu [place] [address] [place] [address] Pharmacist Pharmacy 08/05/22 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 Start Date End Date Junior Jeong MD [address] [place] [address] PCP - General Internal Medicine 06/18/21 Vasu [place] [address] [place] [address] Pharmacist Pharmacy 08/05/22 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 Start Date End Date Junior Jeong MD [address] [place] [address] PCP - General Internal Medicine 06/18/21 [place]u [place] [address] [place] [address] Pharmacist Pharmacy 08/05/22 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 Start Date End Date Junior Jeong MD [address] [place] [address] PCP - General Internal Medicine 06/18/21 [place] [address] [place] [address] Pharmacist Pharmacy 08/05/22 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 Start Date End Date Junior Jeong MD [address] [place] [address] PCP - General Internal Medicine 06/18/21 [place] [address] [place] [address] Pharmacist Pharmacy 08/05/22 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 Start Date End Date Junior Jeong MD [address] [place] [address] PCP - General Internal Medicine 06/18/21 RoxburyCynthia [place] [address] [place] [address] Pharmacist Pharmacy 08/05/22 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 Start Date End Date Junior Jeong MD [address] [place] [address] PCP - General Internal Medicine 06/18/[address] [address] Pharmacist Pharmacy 08/05/22 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 Start Date End Date Junior Jeong MD [address] [place] [address] PCP - General Internal Medicine 06/18/21 [place]u [place] [address] [place] [address] Pharmacist Pharmacy 08/05/22 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 Start Date End Date Junior Jeong MD [address] [place] [address] PCP - General Internal Medicine 06/18/21 YandelVasu [place] [address] [place] [address] Pharmacist Pharmacy 08/05/22 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 Start Date End Date Junior Jeong MD [address] [place] [address] PCP - General Internal Medicine 06/18/21 [place]Vasu [place] [address] [place] [address] Pharmacist Pharmacy 08/05/22 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 Start Date End Date Junior Jeong MD [address] [place] [address] PCP - General Internal Medicine 06/18/21 [place] [address] [place] [address] Pharmacist Pharmacy 08/05/22 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 Start Date End Date Junior Jeong MD [address] [place] [address] PCP - General Internal Medicine 06/18/21 [place] [address] [place] [address] Pharmacist Pharmacy 08/05/22 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 Start Date End Date Junior Jeong MD [address] [place] [address] PCP - General Internal Medicine 06/18/21 [place] [address] [place] [facility] [address] Pharmacist Pharmacy 08/05/22 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 Start Date End Date Junior Jeong MD [address] [place] [address] PCP - General Internal Medicine 06/18/21 [place], [place] [address] [place] [address] Pharmacist Pharmacy 08/05/22 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 Start Date End Date Junior Jeong MD [address] [place] [address] PCP - General Internal Medicine 06/18/21 YandelCynthia [place] [address] [place] [address] Pharmacist Pharmacy 08/05/22 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 Start Date End Date Junior Jeong MD [address] [place] [address] PCP - General Internal Medicine 06/18/21 [place]Cynthia [place] [address] [place] [address] Pharmacist Pharmacy 08/05/22 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 Start Date End Date Junior Jeong MD [address] [place] [address] PCP - General Internal Medicine 06/18/21 [place]Cynthia [place] [address] [place] [address] Pharmacist Pharmacy 08/05/22 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 Start Date End Date Junior Jeong MD [address] [place] [address] PCP - General Internal Medicine 06/18/21 [place] [address] [place] [address] Pharmacist Pharmacy 08/05/22 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 Start Date End Date Jnuior Jeong MD [address] [place] [address] PCP - General Internal Medicine 06/18/21 Vasu [place] [address] [place] [address] Pharmacist Pharmacy 08/05/22 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 Start Date End Date Junior Jeong MD [address] [place] [address] PCP - General Internal Medicine 06/18/21 Vasu [place] [address] [place] [address] Pharmacist Pharmacy 08/05/22 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 Start Date End Date Junior Jeong MD [address] [place] [address] PCP - General Internal Medicine 06/18/21 Yandel [place] [address] [place] [address] Pharmacist Pharmacy 08/05/22 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 Start Date End Date Junior Jeong MD [address] [place] [address] PCP - General Internal Medicine 06/18/21 Vasu [place] [address] [place] [address] Pharmacist Pharmacy 08/05/22 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 Start Date End Date Junior Jeong MD [address] [place] [address] PCP - General Internal Medicine 06/18/21 [place] [address] [place] [facility] [place] [address] Pharmacist Pharmacy 08/05/22 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 Start Date End Date Junior Jeong MD [address] [place] [address] PCP - General Internal Medicine 06/18/21 YandelVasu [place] [address] [place] [address] Pharmacist Pharmacy 08/05/22 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 Start Date End Date Junior Jeong MD [address] [place] [address] PCP - General Internal Medicine 06/18/21 Vasu [place] [address] [place] [address] Pharmacist Pharmacy 08/05/22 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 Start Date End Date Junior Jeong MD [address] [place] [address] PCP - General Internal Medicine 06/18/21 [place]Vasu [place] [address] [place] [address] Pharmacist Pharmacy 08/05/22 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 Start Date End Date Junior Jeong MD [address] [place] [address] PCP - General Internal Medicine 06/18/21 [place] [address] [place] [address] Pharmacist Pharmacy 08/05/22 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 Start Date End Date Junior Jeong MD [address] [place] [address] PCP - General Internal Medicine 06/18/21 Yandel [place] [address] [place] [address] Pharmacist Pharmacy 08/05/22 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 Start Date End Date Junior Jeong MD [address] [place] [address] PCP - General Internal Medicine 06/18/21 Yandel [place] [address] [place] [address] Pharmacist Pharmacy 08/05/22 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 Start Date End Date Junior Jeong MD [address] [place] [address] PCP - General Internal Medicine 06/18/21 YandelVasu [place] [address] [place] [address] Pharmacist Pharmacy 08/05/22 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 Start Date End Date Junior Jeong MD [address] [place] [address] PCP - General Internal Medicine 06/18/21 Vasu [place] [address] [place] [address] Pharmacist Pharmacy 08/05/22 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 Start Date End Date Junior Jeong MD [address] [place] [address] PCP - General Internal Medicine 06/18/21 Vasu [place] [address] [place] [address] Pharmacist Pharmacy 08/05/22 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 Start Date End Date Junior Jeong MD [address] [place] [address] PCP - General Internal Medicine 06/18/21 Yandel [place] [address] [place] [address] Pharmacist Pharmacy 08/05/22 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 Start Date End Date Junior Jeong MD [address] [place] [address] PCP - General Internal Medicine 06/18/21 Vasu [place] [address] [place] [address] Pharmacist Pharmacy 08/05/22 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 Start Date End Date Junior Jeong MD [address] [place] [address] PCP - General Internal Medicine 06/18/21 R[place]Vasu [place] [address] [place] [address] Pharmacist Pharmacy 08/05/22 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 Start Date End Date Junior Jeong MD [address] [place] [address] PCP - General Internal Medicine 06/18/21 [place]CynthiaVasuDeb[place] [address] [place] [address] Pharmacist Pharmacy 08/05/22 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 Start Date End Date Junior Jeong MD [address] [place] [address] PCP - General Internal Medicine 06/18/21 [place] [address] [place] [address] Pharmacist Pharmacy 08/05/22 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 Start Date End Date Junior Jeong MD [address] [place] [address] PCP - General Internal Medicine 06/18/21 Vasu [place] [address] [place] [address] Pharmacist Pharmacy 08/05/22 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 Start Date End Date Junior Jeong MD [address] [place] [address] PCP - General Internal Medicine 06/18/21 YandelVasu [place] [address] [place] [address] Pharmacist Pharmacy 08/05/22 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 Start Date End Date Junior Jeong MD [address] [place] [address] PCP - General Internal Medicine 06/18/21 [place]Vasu [place] [address] [place] [address] Pharmacist Pharmacy 08/05/22 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 Start Date End Date Junior Jeong MD [address] [place] [address] PCP - General Internal Medicine 06/18/21 [place] [address] [place] [address] Pharmacist Pharmacy 08/05/22 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 Start Date End Date Junior Jeong MD [address] [place] [address] PCP - General Internal Medicine 06/18/21 Yandel, [place] [address] [place] [address] Pharmacist Pharmacy 08/05/22 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 Start Date End Date Junior Jeong MD [address] [place] [address] PCP - General Internal Medicine 06/18/21 [place] [address] [place] [address] Pharmacist Pharmacy 08/05/22 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 Start Date End Date Junior Jeong MD [address] [place] [address] PCP - General Internal Medicine 06/18/21 Vasu [place] [address] [place] [address] Pharmacist Pharmacy 08/05/22 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 Start Date End Date Junior Jeong MD [address] [place] [address] PCP - General Internal Medicine 06/18/21 [place]Vasu [place] [address] [place] [address] Pharmacist Pharmacy 08/05/22 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 Start Date End Date Junior Jeong MD [address] [place] [address] PCP - General Internal Medicine 06/18/21 YandelVasu [place] [address] [place] [address] Pharmacist Pharmacy 08/05/22 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 Start Date End Date Junior Jeong MD [address] [place] [address] PCP - General Internal Medicine 06/18/21 [place]u [place] [address] [place] [address] Pharmacist Pharmacy 08/05/22 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 Start Date End Date Junior Jeong MD [address] [place] [address] PCP - General Internal Medicine 06/18/21 [place] [address] [place] [address] Pharmacist Pharmacy 08/05/22 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 Start Date End Date Junior Jeong MD [address] [place], [place] [address] PCP - General Internal Medicine 06/18/[address] [address] Pharmacist Pharmacy 08/05/22 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 Start Date End Date Junior Jeong MD [address] [place] [address] PCP - General Internal Medicine 06/18/[address] [place] [address] [address] Pharmacist Pharmacy 08/05/22 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 Start Date End Date Junior Jeong MD [address] [place], [place] [address] PCP - General Internal Medicine 06/18/21 [place] [address] [place] [address] Pharmacist Pharmacy 08/05/22 Fercho Perez, 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 [address] [place] [address] Activities Director Internal Medicine 05/02/24 Leah Underwood, MOVIE PROJECTIONIST.TIE UP WORKER [address] [place] [address] Activities Director Internal Medicine 05/02/24 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 Start Date End Date Junior Jeong MD [address] [place] [address] PCP - General Internal Medicine 06/18/21 [place]CynthiaV[place] [address] [place] [facility] [place] [address] Pharmacist Pharmacy 08/05/22 Fercho Perez, 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 [address] [place] [address] Activities Director Internal Medicine 05/02/24 Leah Underwood MOVIE PROJECTIONIST.TIE UP WORKER [address] [place] [address] Activities Director Internal Medicine 05/02/24 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 Start Date End Date Junior eJong MD [address] [place] [address] PCP - General Internal Medicine 06/18/21 [place] [address] [place] [facility] [place] [address] Pharmacist Pharmacy 08/05/22 Fercho Perez, 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 [address] [place] [address] Activities Director Internal Medicine 05/02/24 Leah Underwood MOVIE PROJECTIONIST.TIE UP WORKER [address] [place] [address] Activities Director Internal Medicine 05/02/24 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 Start Date End Date Junior Jeong MD [address] [place] [address] PCP - General Internal Medicine 06/18/21 [place] [address] [place] [address] Pharmacist Pharmacy 08/05/22 Fercho Perez, 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 [address] [facility] [place] [address] Activities Director Internal Medicine 05/02/24 Leah Underwood MOVIE PROJECTIONIST.TIE UP WORKER [address] [facility] [place] [address] Activities Director Internal Medicine 08/16/24 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 Start Date End Date Junior Jeong MD [address] [place] [address] PCP - General Internal Medicine 06/18/21 [place]ynthiaV[place] [address] [place] [address] Pharmacist Pharmacy 08/05/22 Fercho Perez, 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 [address] [facility] [place] [address] Activities Director Internal Medicine 05/02/24 Leah Underwood MOVIE PROJECTIONIST.TIE UP WORKER [address] [facility] [place] [address] Activities Director Internal Medicine 08/16/24 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 Start Date End Date Junior Jeong MD [address] [facility] [place] [address] PCP - General Internal Medicine 06/18/21 [place]yn[place] [address] [place] [address] Pharmacist Pharmacy 08/05/22 Leah Underwood APRN.TIE UP WORKER [address] [place] [address] Activities Director Internal Medicine 08/16/24 Fercho Perez APRN.SHREDDED FILLER CUTTER OPERATOR [address] [facility] [place] [address] Activities Director Internal Medicine 10/12/24 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 Start Date End Date Junior Jeong MD [address] [facility] [place] [address] PCP - General Internal Medicine 06/18/21 [place] [address] [place] [address] Pharmacist Pharmacy 08/05/22 Fercho Perez APRN.SHREDDED FILLER CUTTER OPERATOR [address] [facility] [place] [address] Activities Director Internal Medicine 05/02/24 10/11/24 Leah Underwood APRN.TIE UP WORKER [address] [facility] [place] [address] Activities Director Internal Medicine 08/16/24 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 Start Date End Date Junior Jeong MD [address] [facility] [place] [address] PCP - General Internal Medicine 06/18/21 YandelVasu [place] [address] [place] [address] Pharmacist Pharmacy 08/05/22 Fercho Perez APRN.SHREDDED FILLER CUTTER OPERATOR [address] [place] [address] [facility] Internal Medicine 05/02/24 10/11/24 Leah Underwood APRN.TIE UP WORKER [address] [place], [place] [id number] [facility] Internal Medicine 08/16/24 Fercho Perez APRN.SHREDDED FILLER CUTTER OPERATOR [address] [place] [address] [facility] Internal Medicine 10/12/24 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 Start Date End Date Junior Jeong MD [address] [place], [place] [id number] PCP - General Internal Medicine 06/18/21 Leah Underwood APRN.TIE UP WORKER [address] [place] [address] [facility] Internal Medicine 08/16/24 Fercho Perez APRN.SHREDDED FILLER CUTTER OPERATOR [address] [place] [address] [facility] Internal Medicine 10/12/24 Scheduled Active and Recently Administ ered Medications (unrecognized section and content) Medication Order 02/20/2024 02/21/2024 02/22/2024 ceFAZolin in dextrose 4% (Ancef) IVPB 2,000 mg (COMPLETED) 2,000 mg, IntraVENous, Administer over 30 Minutes, Once, On Thu02/19/24 at 2345, For 1 dose, Pre-Delivery, Patients < 120 k mg ~~~ Patients >/= 120 k mg premix bag, Suspected Indication (Select all that apply): Surgical Prophylaxis 0043 (Given - Provider: Ame Thompson APRN - EDITORIAL PROJECT MANAGER) enoxaparin (Lovenox) syringe 60 mg 60 mg, SubCUTAneous, Daily, First dose on 02/20/24 at 1515, , Indication of Use: Prophylaxis-DVT/PE 1513 (Given - Provider: Rut Maynard RN) 1640 (Given - Provider: Caro Hammonds RN) 0803 (Given - Provider: Helen Lockhart, ОЛЕГ) ferrous sulfate tablet 325 mg 325 mg, Oral, 2 times daily with meals, First dose on 02/20/24 at 0800, , Start if Hgb less than 10. Hold oral ferrous sulfate dose if receiving IV iron sucrose (Venofer) 0800 (Not Given - Provider: Rut Maynard RN - Reason: Order parameters not met)1700 (Not Given - Provider: Rut Maynard RN - Reason: Order parameters not met) 0800 (Not Given - Provider: Caro Hammonds RN - Reason: Order parameters not met)1700 (Not Given - Provider: Caro Hammonds RN - Reason: Order parameters not met) 0800 (Not Given - Provider: Helen Lockhart RN - Reason: Order parameters not met) ibuprofen tablet 600 mg 600 mg, Oral, Every 6 hours, First dose (after last modification) on 02/20/24 at 1800, 1836 (Given - Provider: Rut Maynard RN) 0045 (Given - Provider: Yeimy Layne, ОЛЕГ)0635 (Given - Provider: Yeimy Layne, RN)1232 (Given - Provider: Caro Hammonds RN)1927 (Given - Provider: Caro Hammonds RN) 0145 (Given - Provider: Mavis Walden RN)0803 (Given - Provider: Helen Lockhart RN)1200 (Canceled Entry - Provider: Automatic Discharge Provider - Comment: Automatically canceled at discontinue of medication order) influenza vac tiss-cult subunt (Flucelvax) injection 0.5 mL 0.5 mL, IntraMUSCular, Once, On 02/21/24 at 0900, For 1 dose, 2100 (Canceled Entry - Provider: Caro Hammonds RN - Comment: Pt refused) Insulin Lispro (Humalog) injection 0-6 Units(Linked Group 1) 0-6 Units, SubCUTAneous, 3 times daily with meals, First dose on 02/20/24 at 0800, Low Dose Correction Algorithm Glucose: Dose: LESS than 139 No Insulin 140-199 1 Unit 200-249 2 Units 250-299 3 Units 300-349 4 Units 350-400 5 Units Above 400 6 Units 0634 (Given - Provider: Laura Styles, ОЛЕГ - Comment: ok to give 2 units now for BGT of [address] Siegel)0912 (Given - Provider: Rut Maynard RN - Comment: ENDO EVP STRATEGY at bedside order received togive 4 units Humalog now for 305 BGT 1 hr PP)1200 (Not Given - Provider: Rut Maynard RN - Reason: Patient not available)1727 (Given - Provider: Rut Maynard RN) 0757 (Not Given - Provider: Caro Hammonds RN - Reason: Other - Comment: do not give per endocrine)1232 (Given - Provider: Caro Hammonds RN)1759 (Given - Provider: Caro Hammonds RN) 0724 (Given - Provider: Helen Lockhart RN)1200 (Not Given - Provider: Helen Lockhart RN - Reason: Order parameters not met) Insulin Lispro (Humalog) injection 5 Units 5 Units, SubCUTAneous, 3 times daily with meals, First dose (after last modification) on 02/21/24 at 0800 0800 (Given - Provider: Caro Hammonds RN)1231 (Given - Provider: Caro Hammonds RN)1759 (Given - Provider: Caro Hammonds RN) 0723 (Given - Provider: Helen Lockhart RN)1224 (Given - Provider: Helen Lockhart RN - Comment: Pt eating lunch before DC) Insulin Lispro (Humalog) injection 9 Units (CANCELED) 9 Units, SubCUTAneous, 3 times daily with meals, First dose on 02/20/24 at 0800 0749 (Given - Provider: Rut Maynard RN)1200 (Not Given - Provider: Rut Maynard RN - Reason: Patient not available)1728 (Given - Provider: Rut Maynard RN) insulin NPH (Isophane) (HumuLIN N,NovoLIN N) injection 10 Units 10 Units, SubCUTAneous, Nightly, First dose on 02/20/24 at 2100 2146 (Given - Provider: Yeimy Layne RN) 2108 (Given - Provider: Caro Hammonds, ОЛЕГ) insulin NPH (Isophane) (HumuLIN N,NovoLIN N) injection 6 Units 6 Units, SubCUTAneous, Every morning, First dose on 02/20/24 at 0900 0750 (Given - Provider: Rut Maynard RN) 0756 (Given - Provider: Caro Hammonds RN - Comment: per endocrine ok to give early) 0803 (Given - Provider: Helen Lockhart RN) ketorolac (Toradol) injection 30 mg (CANCELED) 30 mg, IntraVENous, Every 6 hours, First dose on 02/20/24 at 0900, For 4 doses, , This may be discontinued prior to 4 doses if patient pain is well controlled and able to take PO ibuprofen. 0904 (Given - Provider: Rut Maynard RN)1500 (Not Given - Provider: Rut Maynard RN - Reason: Loss of IV access) ketorolac (Toradol) injection 60 mg (COMPLETED) 60 mg, IntraMUSCular, Once, On 02/20/24 at 0315, For 1 dose, Post-Delivery, Postop in recovery room 0319 (Given - Provider: Becky Valente RN) magnesium sulfate IVPB premix 4,000 mg (COMPLETED) 4,000 mg, IntraVENous, Administer over 20 Minutes, Once, On 02/20/24 at 0000, For 1 dose, Pre-Infusion: Assess baseline vital signs (blood pressure, pulse, pulse oximetry, respirations, and temperature), breath sounds, strict intake and output, neurologic status (deep tendon reflexes, presence or absence of clonus, level of consciousness (LOC), presence of headaches/visual disturbances, presence/absence of epigastric pain, and if applicable Heart Rate/Contractions (continuous monitoring). Loading Dose/Infusion: - Stay with the patient during the loading dose and the first hour of the infusion to monitor for adverse reactions. - Continuously monitor the patient's pulse oximetry. - Monitor the patient's vital signs, deep tendon reflexes, level of consciousness every 15 minutes for the first hour after the start of the loading dose, then every 30 minutes for 1 hour, then every 4 hours thereafter unless more frequent assessments are warranted based on the patient's condition. Notify care provider immediately of absent deep tendon reflexes, a urine output of less than 30 mL/hour, respirations of less than 10 breaths/minute, or an oxygen saturation level of less than 95% Grams to milligrams conversion table: 1 gram = 1000 mg 2 grams = 2000 mg 4 grams = 4000 mg 6 grams = 6000 mg 20 grams = 20,000 mg 0007 (New Bag - Provider: Blanca Almazan, RN)0027 (Stopped - Provider: Amita Ribeiro RN) metoclopramide (Reglan) injection 10 mg (CANCELED) 10 mg, IntraVENous, Every 6 hours, First dose on Thu02/20/24 at 0300 0304 (Given - Provider: Eliza Ellsworth RN) nicotine (Nicoderm, Step 1) 21 MG/24HR patch 1 patch(Linked Group 2) 1 patch, TransDERmal, Administer over 24 Hours, Daily, First dose on Thu02/16/24 at 0900, For 42 days, Apply new patch to nonhairy, clean, dry skin on the upper body or upper outer arm. Rotate patch sites. Notify Pharmacy if patient or provider prefers patch to be removed at bedtime and replaced in the morning. 0751 (Not Given - Provider: Rut Maynard RN - Reason: Patient/family refused) 0900 (Canceled Entry - Provider: Caro Hammonds RN - Comment: patient refused) 0900 (Not Given - Provider: Helen Lockhart RN - Reason: Patient/family refused) nicotine (Nicoderm, Step 2) 14 MG/24HR patch 1 patch(Linked Group 2) 1 patch, TransDERmal, Administer over 24 Hours, Daily, First dose on Thu03/29/24 at 0900, For 14 days, Apply new patch to nonhairy, clean, dry skin on the upper body or upper outer arm. Rotate patch sites. Notify Pharmacy if patient or provider prefers patch to be removed at bedtime and replaced in the morning. nicotine (Nicoderm, Step 3) 7 MG/24HR patch 1 patch(Linked Group 2) 1 patch, TransDERmal, Administer over 24 Hours, Daily, First dose on Thu04/12/24 at 0900, For 14 days, Apply new patch to nonhairy, clean, dry skin on the upper body or upper outer arm. Rotate patch sites. Notify Pharmacy if patient or provider prefers patch to be removed at bedtime and replaced in the morning. 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 0900 (Not Given - Provider: Rut Maynard RN - Reason: Order parameters not met) 0900 (Canceled Entry - Provider: Caro Hammonds RN - Comment: order parameter not met) 0900 (Not Given - Provider: Helen Lockhart RN - Reason: Order parameters not met) sertraline (Zoloft) tablet 150 mg 150 mg, Oral, Nightly, First dose (after last modification) on Thu02/17/24 at 2100 2146 (Given - Provider: Yeimy Layne, ОЛЕГ) 2100 (Given - Provider: Caro Hammonds RN) sodium chloride 0.9% (NS) flush 5-40 mL 5-40 mL, IntraVENous, Every 12 hours scheduled (2 times per day), First dose on Thu02/20/24 at 0900, , or Line Patency: Peripheral IV = 5 mL; Midline or Central Line = 10 mL/lumen. If following IV push medication, administer flush at same rate as the IV push. Flush volume is determined by type of infusion therapy being given. For non-viscous solutions use: Peripheral IV = 5 mL Midline or Central Line = 10 mL/lumen For viscous solutions (i.e. blood components, parenteral nutrition, contrast media, or after obtaining blood sample) use: Peripheral IV = 10 mL Midline or Central Line = 20 mL/lumen 0905 (Given - Provider: Rut Maynard, RN)2100 (Not Given - Provider: Yeimy Layne RN - Reason: Loss of IV access) 0900 (Canceled Entry - Provider: Caro Hammonds RN - Comment: No IV access)2100 (Not Given - Provider: Caro Hammonds RN - Reason: Loss of IV access) 0900 (Canceled Entry - Provider: Automatic Discharge Provider - Comment: Automatically canceled at discontinue of medication order) Continuous Medication Order 02/20/2024 02/21/2024 02/22/2024 lactated Ringer's (LR) infusion (CANCELED) 100 mL/hr, IntraVENous, Continuous, Starting on Thu02/19/24 at 2345, Pre-Delivery 0030 (New Bag - Provider: KYLIE Rock CRNA)0043 (Continued by Anesthesia - Provider: KYLIE Rock CRNA)0124 (New Bag - Provider: KYLIE Rock CRNA) magnesium sulfate 20 GM/500ML infusion (CANCELED) 1,000 mg/hr (25 mL/hr), IntraVENous, Administer over 12 Hours, Continuous, Starting on Thu02/20/24 at 0015, For 12 hours, Pre-Infusion: Assess baseline vital signs (blood pressure, pulse, pulse oximetry, respirations, and temperature), breath sounds, strict intake and output, neurologic status (deep tendon reflexes, presence or absence of clonus, level of consciousness (LOC), presence of headaches/visual disturbances, presence/absence of epigastric pain, and if applicable Heart Rate/Contractions (continuous monitoring). Loading Dose/Infusion: - Stay with the patient during the loading dose and the first hour of the infusion to monitor for adverse reactions. - Continuously monitor the patient's pulse oximetry. - Monitor the patient's vital signs, deep tendon reflexes, level of consciousness every 15 minutes for the first hour after the start of the loading dose, then every 30 minutes for 1 hour, then every 4 hours thereafter unless more frequent assessments are warranted based on the patient's condition. Notify care provider immediately of absent deep tendon reflexes, a urine output of less than 30 mL/hour, respirations of less than 10 breaths/minute, or an oxygen saturation level of less than 95% Grams to milligrams conversion table: 1 gram = 1000 mg 2 grams = 2000 mg 4 grams = 4000 mg 6 grams = 6000 mg 20 grams = 20,000 mg, Indications: Neuroprotection 0029 (New Bag - Provider: Amita Ribeiro RN)0043 (Continued by Anesthesia - Provider: Ame Thompson APRN - [place])0119 (Stopped - Provider: KYLIE Rock CRNA)1229 (Due: Stopped - Provider: Amita Ribeiro RN) PRN Medication Order 02/20/2024 02/21/2024 02/22/2024 acetaminophen (Tylenol) tablet 650 mg 650 mg, Oral, Every 6 hours PRN, other, Pain (1-10), Starting on 02/20/24 at 0504, , Give in addition to any other pain medication ordered at same time for any pain indication. Maximum dose of acetaminophen is 4000mg from all sources in 24 hours. Alternate ibuprofen and acetaminophen every 3 hours. 1524 (Given - Provider: Rut Maynard RN)2146 (Given - Provider: Yeimy Layne RN) 0450 (Given - Provider: Yeimy Layne RN)1347 (Given - Provider: Caro Hammonds, ОЛЕГ)1927 (Given - Provider: Caro Hammonds RN) 0145 (Given - Provider: Mavis Walden RN - Comment: Pt. stated that she gets nausous when she takes acetaminophen and oxycodone together. Stated she does not have any issues taking acetaminophen by itself.)0803 (Given - Provider: Helen Lockhart RN) dextrose 5 % infusion 100 mL/hr, IntraVENous, PRN, Blood sugar less than 70mg/dL, Starting on 02/20/24 at 0521, Start infusion following administration of dextrose 50% or glucagon. dextrose 50 % solution 12.5 g 12.5 g, IntraVENous, PRN, low blood sugar, Blood glucose less than 70 mg/dL and patient NOT ALERT or NPO., Starting on 02/20/24 at 0521, If patient does not respond within 5 minutes, repeat dose x1. Start D5W at 100 mL/hour until ordering provider can be reached. Repeat blood glucose in 15 minutes. If blood glucose is less than 70 mg/dL, repeat treatment and recheck blood glucose in 15 minutes x2. If using Glucostabilizer, dose as instructed per system. diphenhydrAMINE (BENADryl) injection 25 mg 25 mg, IntraVENous, Every 6 hours PRN, itching, hives, Starting on 02/20/24 at 0504, docusate sodium (Colace) capsule 100 mg 100 mg, Oral, 2 times daily PRN, constipation, Starting on 02/20/24 at 0504, , Do not crush or break. 1727 (Given - Provider: Rut Maynard, RN)193 (Given - Provider: Yeimy Layne, RN) 0803 (Given - Provider: Helen Lockhart, ОЛЕГ) famotidine (Pepcid) tablet 20 mg 20 mg, Oral, Daily PRN, indigestion, heartburn, Starting on 02/20/24 at 0504, , Renal dose per pharmacy for peptic ulcer prophylaxis. glucagon (human recombinant) injection 1 mg 1 mg, IntraMUSCular, PRN, low blood sugar, Blood glucose less than 70 mg/dL and patient NOT ALERT or NPO and does not have IV access., Starting on 02/20/24 at 0521, After administration, attempt intravenous access and start D5W at 100 mL/hr. Repeat blood glucose in 15 minutes x2 and notify provider. glucose oral gel 15 g 15 g, Oral, As needed, low blood sugar, Starting on 02/20/24 at 0521, If blood glucose less than 50 mg/dL and patient ALERT and NOT NPO, give 2 tubes glucose gel. If blood glucose less than 70 mg/dL and patient ALERT and NOT NPO, give 1 tube glucose gel. Repeat blood glucose in 15 minutes. If blood glucose is less than 70 mg/dL, repeat treatment and recheck blood glucose in 15 minutes x2 and notify provider. HYDROmorphone (Dilaudid) injection 0.25 mg(Linked Group 3) 0.25 mg, IntraVENous, Every 3 hours PRN, moderate pain (4-6), Starting on 02/20/24 at 1500, , If oral and IV narcotics ordered, use oral first and only use IV if oral is ineffective or cannot take oral. Do Not give oral and IV within 1 hour of each other unless specifically ordered. HYDROmorphone (Dilaudid) injection 0.5 mg(Linked Group 3) 0.5 mg, IntraVENous, Every 3 hours PRN, severe pain (7-10), Starting on 02/20/24 at 1500, , If oral and IV narcotics ordered, use oral first and only use IV if oral is ineffective or cannot take oral. Do Not give oral and IV within 1 hour of each other unless specifically ordered. hydrOXYzine pamoate (Vistaril) capsule 25 mg 25 mg, Oral, Every 6 hours PRN, itching, anxiety, Starting on 02/20/24 at 2121 2146 (Given - Provider: Yeimy Layne, RN) lanolin (Lansinoh) cream Topical, Every 1 hour PRN, dry skin, nipple discomfort, Starting on 02/20/24 at 0504, , Apply to affected area naloxone (Narcan) injection 0.4 mg 0.4 mg, IntraVENous, Every 5 min PRN, opioid reversal, respiratory depression, Starting on 02/20/24 at 0518, +++ For RR <10, pinpoint pupils, over sedation for opioid reversal - MUST notify field control inspector provider immediately after first dose, may give IM or SQ if no IV access +++ ondansetron (Zofran) injection 4 mg (CANCELED)(Linked Group 4) 4 mg, IntraVENous, Every 6 hours PRN, nausea, vomiting, Starting on Thu02/19/24 at 2342, Pre-Delivery, 1st Line. Give IV if patient is unable to take orally. If inadequate response within 60 minutes, proceed to next-line agent or contact provider if no further options ordered. 0057 (Given - Provider: Ame Thompson APRN - EDITORIAL PROJECT MANAGER) ondansetron (Zofran) injection 4 mg(Linked Group 5) 4 mg, IntraVENous, Every 6 hours PRN, nausea, vomiting, Starting on 02/20/24 at 0504, , 1st Line. Give IV if patient is unable to take orally. If inadequate response within 60 minutes, proceed to next-line agent or contact provider if no further options ordered. ondansetron ODT (Zofran-ODT) disintegrating tablet 4 mg(Linked Group 5) 4 mg, Oral, Every 8 hours PRN, nausea, vomiting, Starting on 02/20/24 at 0504, , 1st Line. If inadequate response within 60 minutes, proceed to next-line agent or contact provider if no further options ordered. Patient should allow tablet to dissolve on tongue. Do not remove from blister pack until just before administering. oxyCODONE (Roxicodone) immediate release tablet 10 mg(Linked Group 6) 10 mg, Oral, Every 4 hours PRN, severe pain (7-10), Starting on 02/20/24 at 1500, 1839 (See Alternative - Provider: Rut Maynard, RN)2301 (See Alternative - Provider: Yeimy Layne, RN) 0310 (See Alternative - Provider: Kimber Nazario, ОЛЕГ)0726 (See Alternative - Provider: Yeimy Layne, ОЛЕГ)1139 (Given - Provider: Sherrell Ace RN)1640 (See Alternative - Provider: Caro Hammonds RN)2100 (Given - Provider: Caro Hammonds, ОЛЕГ) 0512 (See Alternative - Provider: Mavis Walden RN)113 (See Alternative - Provider: Helen Lockhart RN) oxyCODONE (Roxicodone) immediate release tablet 5 mg(Linked Group 6) 5 mg, Oral, Every 4 hours PRN, moderate pain (4-6), Starting on 02/20/24 at 1500, 1839 (Given - Provider: Rut Maynard, ОЛЕГ)2301 (Given - Provider: Yeimy Layne, ОЛЕГ) 0310 (Given - Provider: Kimber Nazario, ОЛЕГ)0726 (Given - Provider: Yeimy Layne, ОЛЕГ)1139 (See Alternative - Provider: Sherrell Ace RN)1640 (Given - Provider: Caro Hammonds, ОЛЕГ)2100 (See Alternative - Provider: Caro Hammonds RN) 0512 (Given - Provider: Mavis Walden RN - Comment: Pt. Stated she can take oxycodone by itself; just not with acetaminophen)113 (Given - Provider: Helen Lockhart RN) oxytocin (Pitocin) 30 units in 500 mL infusion (CANCELED) 125 jose d-units/min (125 mL/hr), IntraVENous, Continuous PRN, Bleeding, Starting on Thu02/19/24 at 2342, Pre-Delivery, Post- use ONLY after delivery of baby/ excessive bleeding/ uterine atony. Given after delivery of placenta AND the initial 30 unit bolus. Bag 2 of 2. 125 cc/hr (125 mu/min) for an additional infusion of 500cc (30 units) 0245 (New Bag - Provider: Eliza Ellsworth, RN) simethicone (Mylicon) chewable tablet 80 mg 80 mg, Oral, Every 6 hours PRN, flatulence, cramping, Starting on 02/20/24 at 0504, 1939 (Given - Provider: Yeimy Layne, ОЛЕГ) sodium chloride 0.9 % infusion 5-250 mL/hr, IntraVENous, PRN, if patient receiving piggyback infusions and maintenance fluids are not ordered OR KVO fluids to protect IV site / prevent frequent line interruptions/ long duration, Starting on 02/20/24 at 0504, , For piggyback infusion, administer at same rate as piggyback for a total of 25 mL. Enter 25 mL into dose field and piggyback rate into rate field of order. If piggyback is infusing at a rate less than 100 mL/hr, enter 25 mL into dose field and 100 mL/hr into rate field of order. For KVO fluids, enter rate of 20 mL/hr or less into rate field of order. sodium chloride 0.9% (NS) flush 5-40 mL 5-40 mL, IntraVENous, PRN, line care, After every IV line use, Starting on 02/20/24 at 0504, , or Line Patency: Peripheral IV = 5 mL; Midline or Central Line = 10 mL/lumen. If following IV push medication, administer flush at same rate as the IV push. Flush volume is determined by type of infusion therapy being given. For non-viscous solutions use: Peripheral IV = 5 mL Midline or Central Line = 10 mL/lumen For viscous solutions (i.e. blood components, parenteral nutrition, contrast media, or after obtaining blood sample) use: Peripheral IV = 10 mL Midline or Central Line = 20 mL/lumen Linked Groups Order Group 1: Insulin Lispro (Humalog) injection 0-6 UnitsJump to med 0-6 Units, SubCUTAneous, 3 times daily with meals, First dose on 02/20/24 at 0800, Low Dose Correction Algorithm Glucose: Dose: LESS than 139 No Insulin 140- 199 1 Unit 200-249 2 Units 250-299 3 Units 300-349 4 Units 350-400 5 Units Above 400 6 Units And Insulin Lispro (Humalog) injection 0-6 Units (CANCELED) 0-6 Units, SubCUTAneous, Nightly, First dose on Thu02/20/24 at 2100, If continuous tube feedings/TPN/NPO, give correction dose based on result, no reduction in dose. If eating or bolus tube feeding: Low Dose Correction Algorithm Glucose: Dose: LESS than 139 No Insulin 140-199 1 Unit 200-249 2 Units 250-299 3 Units 300-349 4 Units 350-400 5 Units Above 400 6 Units Group 2: nicotine (Nicoderm, Step 1) 21 MG/24HR patch 1 patchJump to med 1 patch, TransDERmal, Administer over 24 Hours, Daily, First dose on Thu02/16/24 at 0900, For 42 days, Apply new patch to nonhairy, clean, dry skin on the upper body or upper outer arm. Rotate patch sites. Notify Pharmacy if patient or provider prefers patch to be removed at bedtime and replaced in the morning. Followed by nicotine (Nicoderm, Step 2) 14 MG/24HR patch 1 patchJump to med 1 patch, TransDERmal, Administer over 24 Hours, Daily, First dose on Thu03/29/24 at 0900, For 14 days, Apply new patch to nonhairy, clean, dry skin on the upper body or upper outer arm. Rotate patch sites. Notify Pharmacy if patient or provider prefers patch to be removed at bedtime and replaced in the morning. Followed by nicotine (Nicoderm, Step 3) 7 MG/24HR patch 1 patchJump to med 1 patch, TransDERmal, Administer over 24 Hours, Daily, First dose on Thu04/12/24 at 0900, For 14 days, Apply new patch to nonhairy, clean, dry skin on the upper body or upper outer arm. Rotate patch sites. Notify Pharmacy if patient or provider prefers patch to be removed at bedtime and replaced in the morning. Group 3: HYDROmorphone (Dilaudid) injection 0.25 mgJump to med 0.25 mg, IntraVENous, Every 3 hours PRN, moderate pain (4-6), Starting on 02/20/24 at 1500, , If oral and IV narcotics ordered, use oral first and only use IV if oral is ineffective or cannot take oral. Do Not give oral and IV within 1 hour of each other unless specifically ordered. Or HYDROmorphone (Dilaudid) injection 0.5 mgJump to med 0.5 mg, IntraVENous, Every 3 hours PRN, severe pain (7-10), Starting on 02/20/24 at 1500, , If oral and IV narcotics ordered, use oral first and only use IV if oral is ineffective or cannot take oral. Do Not give oral and IV within 1 hour of each other unless specifically ordered. Group 4: ondansetron ODT (Zofran-ODT) disintegrating tablet 4 mg (CANCELED) 4 mg, Oral, Every 8 hours PRN, nausea, vomiting, Starting on Thu02/19/24 at 2342, Pre-Delivery, 1st Line. If inadequate response within 60 minutes, proceed to next-line agent or contact provider if no further options ordered. Patient should allow tablet to dissolve on tongue. Do not remove from blister pack until just before administering. Or ondansetron (Zofran) injection 4 mg (CANCELED)Jump to med 4 mg, IntraVENous, Every 6 hours PRN, nausea, vomiting, Starting on Thu02/19/24 at 2342, Pre-Delivery, 1st Line. Give IV if patient is unable to take orally. If inadequate response within 60 minutes, proceed to next-line agent or contact provider if no further options ordered. Group 5: ondansetron ODT (Zofran-ODT) disintegrating tablet 4 mgJump to med 4 mg, Oral, Every 8 hours PRN, nausea, vomiting, Starting on 02/20/24 at 0504, , 1st Line. If inadequate response within 60 minutes, proceed to next- line agent or contact provider if no further options ordered. Patient should allow tablet to dissolve on tongue. Do not remove from blister pack until just before administering. Or ondansetron (Zofran) injection 4 mgJump to med 4 mg, IntraVENous, Every 6 hours PRN, nausea, vomiting, Starting on 02/20/24 at 0504, , 1st Line. Give IV if patient is unable to take orally. If inadequate response within 60 minutes, proceed to next-line agent or contact provider if no further options ordered. Group 6: oxyCODONE (Roxicodone) immediate release tablet 5 mgJump to med 5 mg, Oral, Every 4 hours PRN, moderate pain (4-6), Starting on 02/20/24 at 1500, Or oxyCODONE (Roxicodone) immediate release tablet 10 mgJump to med 10 mg, Oral, Every 4 hours PRN, severe pain (7-10), Starting on 02/20/24 at 1500, FOR RECORDS PERTAINING TO PATIENTS WHO ARE OR HAVE BEEN ENROLLED IN A CHEMICAL DEPENDENCY/SUBSTANCEABUSE PROGRAM, SOME INFORMATION MAY BE OMITTED. This clinical summary was aggregated from multiple sources. Caution should be exercised in using it in the provision of clinical care. This summary normalizes information from multiple sources, and as a consequence, information in this document may materially change the coding, format and clinical context of patient data. In addition, data may be omitted in some cases. CLINICAL DECISIONS SHOULD BE BASED ON THE PRIMARY CLINICAL RECORDS. [facility]. provides no warranty or guarantee of the accuracy or completeness of information in this document.
--- NOTE | 2025-04-10 21:10 | EKG12_ITS ---
Test Reason : PALPS Blood Pressure : */* mmHG Vent. Rate : 89 BPM Atrial Rate : 89 BPM P-R Int : 142 ms QRS Dur : 74 ms QT Int : 330 ms P-R-T Axes : 29 44 40 degrees QTcB Int : 401 ms Normal sinus rhythm Normal ECG Confirmed by WENDIE SANTIAGO, YUNI ([id number]), video effects editor KRISTI FAYE ([id number]) on 04/11/2025 12:24:19 PM Referred By: Confirmed By: YUNI PRESSLEY MD
--- NOTE | 2025-04-10 21:10 | RAD_ITS ---
PROCEDURE: CHEST PA AND LATERAL 04/10/2025 REASON FOR EXAM: PALPITATIONS TECHNIQUE: Procedure Code: RADCXR Modality: DX Procedure: CHEST PA AND LATERAL COMPARISON: None. FINDINGS: Lungs/Pleura: Clear. Heart/Mediastinum: Normal in size. Bones/Soft tissues: Unremarkable. RAD/Chest PA and Lateral IMPRESSION: No acute cardiopulmonary disease. Reading Location: [id number]
[2025-04-10 21:22] LABS: Hematocrit 42.8 % (37-47); Hemoglobin 14.5 g/dL (12.0-15.0); Immature Granulocytes Count 0.090 X10^3/uL (0.0-0.0); Mean Corp Hgb Conc 33.9 g/dL (32-36); Mean Corpuscular Volume 81.5 fL (81-99); Mean Platelet Vol. 9.4 fl (6.2-12.0); NRBC Flagged by Analyzer 0 % (0-5); Platelet Count 233 K/mm3 (150-450); RBC Distribution Width CV 12.6 % (11.6-14.6); RBC Distribution Width SD 37.2 fl (35.1-43.9); Red Blood Count 5.25 M/mm3 (4.2-5.4); White Blood Count 12.4 K/mm3 (4.4-11.0)
--- NOTE | 2025-04-10 21:35 | EDS_ITS ---
HPI History of Present Illness Chief Complaint: Palpitations Narrative Narrative: Patient is a 35-year-old female presenting to the emergency department for palpitations. Patient states that for the past 3 to 4 weeks she has had on and off palpitations. States that it occurs multiple times a day and last for only a few seconds at a time. She states that about 4 weeks ago she had a dental block with lidocaine and thought this was initially the cause but the palpitations have since continued. She denies any chest pain or shortness of breath. Denies any abdominal pain, nausea, vomiting, diarrhea. Denies any lower extremity edema. Denies any history of DVT or PE. Denies any use of OAC. Denies any drug or alcohol use. [facility] Medical History Diabetes mellitus, type 2 Home Medications Medication Instructions Recorded Last Taken Type cephalexin 500 mg capsule 500 mg PO Q12 #10 CAPSULES 0 12/09/23 Unknown Rx Allergy/AdvReac Type Severity Reaction Status Date / Time codeine Allergy JITTERY Verified 04/10/25 19:29 acetaminophen (From Percocet) AdvReac Vomiting Verified 04/10/25 19:29 nalbuphine (From Nubain) AdvReac Vomiting Verified 04/10/25 19:29 oxycodone (From Percocet) AdvReac Vomiting Verified 04/10/25 19:29 Social History Smoking Status: Current every day smoker tobacco type: cigarettes ROS ROS ED ROS Narrative see HPI EXAM Physical Exam Narrative Exam Narrative: Vital signs: Reviewed General: Alert and orientedx3. No acute distress HEENT: Head is normocephalic and atraumatic, sinuses nontender, pupils equal round and reactive. Nares are patent. Oropharynx and throat exams normal. Neck: Supple without lymphadenopathy nontender Cardiovascular: Regular rate and rhythm, no murmurs. No rubs or gallops. Normal S1 and S2 Respiratory: Clear to auscultation bilaterally. No wheezes, rales, rhonchi Abdominal: Soft and nontender. Normal bowel sounds. No guarding or rebound. Nonsurgical abdomen Extremities: No lower extremity edema. No tenderness. No bruising. Normal range of motion. Normal sensation. Skin: No rash or redness. Neurological: Cranial nerves II through XII are grossly intact. Normal strength and sensation. Normal cerebellar function The rest of the physical exam is unremarkable Const Vital Signs: 04/10/25 19:30 04/10/25 19:57 04/10/25 21:36 Temperature 97.6 F L Temperature Source Temporal Pulse Rate 91 95 Respiratory Rate 18 20 H Respiratory Effort Normal Non-Labored Blood Pressure 145/91 H 121/79 H Blood Pressure Mean 109 93 Pulse Ox 98 99 Oxygen Delivery Method Room Air Room Air 04/10/25 22:38 Temperature 97.7 F L Temperature Source Pulse Rate 90 Respiratory Rate 15 Respiratory Effort Blood Pressure 125/68 H Blood Pressure Mean 87 Pulse Ox 99 Oxygen Delivery Method MDM MDM MDM Narrative Medical decision making narrative: Patient is a 35-year-old female presenting to the emergency department for palpitations. Patient was seen and examined. Vitals are stable. Patient resting in bed comfortably in no acute distress. EKG shows normal sinus rhythm with no ischemic changes. No dysrhythmia. Will obtain lab work to rule out electrolyte abnormality, thyroid dysfunction, ACS as the cause of her palpitations. PERC negative. CBC with a mild nonspecific leukocytosis of 12.4. Normal hemoglobin. BMP with no significant abnormalities. Magnesium and TSH are within normal limits. Urine is negative. Troponin less than 6. Chest x-ray reviewed by myself, no pneumothorax, pneumonia or widened mediastinum. Radiology read in agreement with no acute cardiopulmonary disease. Patient was reevaluated and updated on the negative workup. I recommend that she follow-up with her primary care doctor for possible Holter monitor placement giving the intermittent nature of her palpitations. Patient is agreeable with the plan. Patient discharged from the Emergency Department. I do not feel that the patient's evaluation reveals any acute reason for admission at this time. I instructed them to either follow- up with their primary care physician or promptly return to the Emergency Department for reevaluation should symptoms worsen or new symptoms develop. I explained what symptoms would indicate the need to return to the emergency department. Shared decision making was used. The patient voiced understanding of the treatment plan and is agreeable with it. Clinical impression Heart palpitations History & Record Review Discussion w/independent historian: Patient and Family Lab Data Attestation: I reviewed the patient's lab results. Labs: Laboratory Results - last 24 hr 04/10/25 04/10/25 21:10 21:35 WBC 12.4 H RBC 5.25 Hgb 14.5 Hct 42.8 MCV 81.5 MCH 27.6 MCHC 33.9 RDW Std Deviation 37.2 RDW Coeff of Eileen 12.6 Plt Count 233 MPV 9.4 Immature Gran % (Auto) 0.700 Neut % (Auto) 65.5 Lymph % (Auto) 26.6 [place] % (Auto) 5.1 Eos % (Auto) 1.6 Baso % (Auto) 0.5 Absolute Neuts (auto) 8.1 H Absolute Lymphs (auto) 3.28 Nucleated RBC % 0 Sodium 140 Potassium 3.9 Chloride 108 Carbon Dioxide 20.1 L Anion Gap 12 BUN 13 Creatinine 0.56 L Estim Creat Clear Calc 169.92 Est GFR (MDRD) Non-Af 121 BUN/Creatinine Ratio 23.1 H Glucose 125 H Calcium 9.3 Magnesium 2.0 Troponin T High Sens < 6 TSH 3.410 Urine Test Negative Radiography Diagnostic Testing: Clinical Impression(s) from Imaging Studies Chest X-Ray 04/10/25 21:10 IMPRESSION: No acute cardiopulmonary disease. Reading Location: [facility] Discharge Plan Triage Chief Complaint: Palpitations ED Provider: Ida Baltazar Dx/Rx/DC Orders Clinical Impression: Heart palpitations Instructions: ED Heart Palpitations Prescriptions: No Action cephalexin 500 mg capsule 500 mg PO Q12 Qty: 10 0RF Primary Care Provider: Mera Aranda Referrals: Mera Aranda MD [Primary Care Provider, Internal Medicine] - As soon as possible Activity Restrictions/Additional Instructions: Follow-up with your primary care doctor soon as possible to have them order a Holter monitor outpatient. Your evaluation in the Emergency Department did not reveal any acute reason for admission. However, I want to emphasize that you may be early in the course of a disease process or illness even if it is not present. For this reason you should follow-up within 24 hours for reevaluation with either your primary care physician or if necessary back here in the Emergency Department. You should return to the Emergency Department immediately if your symptoms worsen or new symptoms develop. Print Language: Estonian Disposition Disposition: Home, Self Care Discharge Date/Time: 04/10/25 22:39
[2025-04-10 21:36] VITALS: BP 121/79; PULSE 95; RESP 20; O2SAT 99
[2025-04-10 21:41] LABS: Troponin T High Sensitivity < 6 ng/L (<=14)
[2025-04-10 21:50] LABS: Anion Gap 12 (5-15); BUN 13 mg/dL (4-19); BUN/Creat Ratio 23.1 RATIO (10-20); Calcium,Total 9.3 mg/dL (7.6-11.0); Carbon Dioxide 20.1 mmol/L (21.0-32.0); Chloride 108 mmol/L (98-108); Estimated Creatinine Clearance 169.92 ml/min (50-250); Glucose 125 mg/dL (70-99); Magnesium 2.0 mg/dL (1.5-2.2); Potassium 3.9 mmol/L (3.3-5.1)
[2025-04-10 22:03] LABS: Internal QC Validated? YES +Cl - CLEAR BKGD; Pregnancy, Urine Negative Negative
[2025-04-10 22:04] LABS: Record Kit Lot#,Urine Preg 980607
[2025-04-10 22:38] VITALS: BP 125/68; PULSE 90; RESP 15; TEMP 36.5; O2SAT 99
== END 2025-04-10 22:39 | disposition home or self-care (01) ==
PROVIDERS: Emergency Provider Student in an Organized Health Care Education/Training Program; PCP Internal Medicine; Visit Provider Student in an Organized Health Care Education/Training Program
DX: R00.2 Palpitations (principal); E11.9 Type 2 diabetes mellitus without complications; F17.210 Nicotine dependence, cigarettes, uncomplicated
CPT/HCPCS: 71046; 80048; 81025; 83735; 84443; 84484; 85025; 93005; 99284; A4216